=== PATIENT | male | born 1950 | race Caucasian/White ===

== ENCOUNTER 2019-07-23 15:29 | Day surgery (SDC) | payer MEDICARE, BC, SELFPAY ==
[2019-07-23] VITALS (7 sets, daily range): BP systolic 111–139; BP diastolic 75–84; PULSE 65–85; RESP 16; TEMP 36.2–37; O2SAT 96–99; BMI 24.7
--- NOTE | 2019-07-23 16:39 | ED.DCSUM_ITS ---
- ER Visit Summary Date of Service: 07/23/19 Chief Complaint: [Foreign body ingestion] History of Present Illness: The patient is a 68 M [Zentz to the emergency department with ingesting a foreign body. Patient states that he had a toothpick in his mouth that he was lying on his back when he accidentally i nhaled it and ingested it. He denies any trouble breathing. Patient states that every time he swallows he feels like it stuck in his throat. Patient denies any dyspnea. He has a mild cough for several days. Denies any fevers.] Physical Examination: [HEENT-PERRLA, EOMI. Cranial nerves II through XII grossly intact. TMs clear. Mucous membranes moist. No adenopathy. Cardiovascular-regular rate and rhythm without murmur or ectopy Lungs-clear to auscultation, chest wall stable without crepitus or subcu emphysema Abdomen-normoactive bowel sounds, soft, nontender, no rebound or rigidity, no peritoneal signs. Extremities-intact ?4, normal range of motion, normal pulses, atraumatic] Test Results: [None indicated] Emergency Department Course and Treatment: [Case was discussed with general surgeon on-call Dr. Chaitanya Colon who will take patient to endoscopy for retrieval of suspected esophageal foreign body.] Treatment Plan: [Endoscopy] Disposition: Pending evaluation by general surgeon [] Impression: [Esophageal foreign body] This note was generated with [employer] Windows dictation software. It may contain incorrect words, spelling, and punctuation that were not noted in review of the chart prior to signing ED Disposition - Plan for ED Patient: Referrals: Jason Myers MD [Primary Care Provider] -
[2019-07-23] MEDS: 0.45% Normal Saline 1,000 ML 150 ML IV (17:12)
--- NOTE | 2019-07-23 18:13 | PCM.HP.STD ---
History of Present Illness Date of Admission: 07/23/19 Chief Complaint: esophageal foreign body The patient is a 68 year old M with a recent URI, He was using a toothpick to clean his teeth, coughed and swallowed the toothpick this afternoon. He has a globus senstaion in his throat. He presented to the [facility] ER. I was contacted. No imaging was performed Past Medical History Allergies No Known Allergies Allergy (Verified 07/23/19 15:30) Home Medications: Ambulatory Orders Medication Instructions Recorded Quetiapine Fumarate 25 - 50 mg PO QHS 07/23/19 Surgical History: no surgical history Psychiatric History: Depression Smoking Status: Former smoker Review of Systems Constitutional: Denies: Chills, Fever, Weight Change HEENT: Reports: Dysphasia. Denies: Head Aches, Sinus Congestion, Sinus Drainage Cardiovascular: Denies: Chest Pain, Palpitations Respiratory: Denies: Cough, Shortness of breath at rest, Sputum production Gastrointestinal: Denies: Abdominal Pain, Nausea, Vomiting Genitourinary: Denies: Dysuria Musculoskeletal: Denies: Joint Pain, Joint Tenderness Skin: Denies: Rash, Wounds Neurological: Denies: Numbness, Tingling, Focal weakness Psychiatric: Reports: Depression. Denies: Anxiety, Homicidal Ideations, Suicidal Ideations Hematologic/ Lymphatic: Denies: Easy Bruising, Easy Bleeding VTE Information - Inpt Only VTE Present on Admission: No - Physical Exam Vitals/I&O's: Vital Signs Temp Pulse Resp BP Pulse Ox 97.1 F L 85 16 111/78 97 07/23/19 15:31 07/23/19 15:31 07/23/19 15:31 07/23/19 15:31 07/23/19 15:31 Oxygen Delivery Method Room Air Weight: 80.5 kg Body Mass Index (BMI) 24.7 General: Alert, Oriented x3, Cooperative, No apparent distress Lungs: Clear to auscultation, Normal air movement Cardiovascular: Regular rate, No murmurs Abdomen: Bowel Sounds Present, Soft, Non Tender Current Medications Sodium Chloride () 1,000 mls @ 150 mls/hr IV .[id number] [facility] Last Admin: 07/23/19 17:12 Dose: 150 mls/hr Documented by: Assessment/Plan likely esophageal foreign body - toothpick I plan to perform upper endoscopy with removal of esophageal foreign body. The patient understands the risks benefits aossible complications and alternatives and consents to the planned procedure.
--- NOTE | 2019-07-23 18:54 | OP.EGD_ITS ---
Patient Name: Cristhian Morales Procedure Date: 07/23/2019 6:14 PM Date of : 1950 Age: 68 Procedure: Upper GI endoscopy Indications: Foreign body in the esophagus Providers: Chaitanya Guajardo MD Medicines: Monitored Anesthesia Care Patient Profile: This is a 68 year old male. Refer to note in patient chart for documentation of history and physical. Complications: No immediate complications. Procedure: Pre-Anesthesia Assessment: - Prior to the procedure, a History and Physical was performed, and patient medications and allergies were reviewed. The patient is competent. The risks and benefits of the procedure and the sedation options and risks were discussed with the patient. All questions were answered and informed consent was obtained. Patient identification and proposed procedure were verified by the physician, the nurse and the anesthesiologist in the procedure room. Mental Status Examination: alert and oriented. Airway Examination: normal oropharyngeal airway and neck mobility. Respiratory Examination: clear to auscultation. CV Examination: normal. Prophylactic Antibiotics: The patient does not require prophylactic antibiotics. Prior Anticoagulants: The patient has taken no previous anticoagulant or antiplatelet agents. ASA Grade Assessment: E - Emergency. After reviewing the risks and benefits, the patient was deemed in satisfactory condition to undergo the procedure. The anesthesia plan was to use monitored anesthesia care (MAC). Immediately prior to administration of medications, the patient was re-assessed for adequacy to receive sedatives. The heart rate, respiratory rate, oxygen saturations, blood pressure, adequacy of pulmonary ventilation, and response to care were monitored throughout the procedure. The physical status of the patient was re-assessed after the procedure. After obtaining informed consent, the endoscope was passed under direct vision. Throughout the procedure, the patient's blood pressure, pulse, and oxygen saturations were monitored continuously. The gastroscope was introduced through the mouth, and advanced to the jejunum. The upper GI endoscopy was accomplished without difficulty. The patient tolerated the procedure well. Scope In: 6:26:08 PM Scope Out: 6:41:03 PM Total Procedure Duration Time 0 hours 14 minutes 55 seconds Findings: The examined jejunum was normal. The second portion of the duodenum was normal. Patchy mildly erythematous mucosa without active bleeding and with no stigmata of bleeding was found in the duodenal bulb. A medium amount of food (residue) was found in the gastric antrum. The examined esophagus was normal. The nasopharynx was normal. Impression: - Normal examined jejunum. - Normal second portion of the duodenum. - Erythematous duodenopathy. - A medium amount of food (residue) in the stomach. - Normal esophagus. - Normal nasopharynx. - No specimens collected. Recommendation: - Discharge patient to home. - Clear liquid diet for 2 days. - Continue present medications. Chaitanya Guajardo MD 07/23/2019 6:53:34 PM This report has been signed electronically. Number of Addenda: 0 Note Initiated On: 07/23/2019 6:14 PM
== END 2019-07-23 19:45 | disposition home or self-care (01) ==
LOC: ED 16:53 → EN 16:57 → AC 17:00
PROVIDERS: Emergency Provider Emergency Medicine; Family Provider Physician Assistant; PCP Physician Assistant; Referring Provider Surgery; Visit Provider Surgery
PROC: 0DJ08ZZ Inspection of Upper Intestinal Tract, Via Natural or Artificial Opening Endoscopic (ICD-10-PCS; CPT 43235; principal; 2019-07-23 17:20)
DX: T18.108A Unspecified foreign body in esophagus causing other injury, initial encounter (principal); F32.9 Major depressive disorder, single episode, unspecified; Z87.891 Personal history of nicotine dependence
CPT/HCPCS: 43235; 99282; A4216

== ENCOUNTER 2019-10-18 09:00 | Outpatient (RCR) | payer MEDICARE, BC, SELFPAY ==
[2019-07-23 15:31] VITALS: BMI 24.7
--- NOTE | 2019-09-28 09:28 | HP.OTEVAL_ITS ---
Patient's Visit Information SHANIKA LAINEZ is a 68 year old M, referred to Occupational Therapy by SAVANAH DUNHAM, with a diagnosis of left CTS. Date of Evaluation: 09/26/19 Occupational Therapist: Gilma Vinecnt, ADRIANNA/Jaswant, CHT - Subjective Subjective: This 68 year old male was seen for OT eval with dx of left CTS. Pt sx was on 09/03/2019 of left open CTR and left flexor tenosynovectomy at wrist level. pt states he is having difficulty with numbness and movement of left thumb- pt states this has been an issue since his 2nd rotator cuff repair about a year ago on 2018. Pt states since that sx he has had tingling on the back of his forearm and is unable to bend the tip of his thumb. 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 Pt reports difficulty with ADls and IADls due to lack of pinch. - ADLs Fasteners: Buttons, Snaps - ROM Wrist: right 65/70 left 75/65 CMC: right 10 left 20 MP: right 70 left 70 IP: right 70 left 0 Radial Abduction: right 45 left 50 ROM Comments: right IP at rest 0 left IP at rest +15* - Strength Warehouse Person: right 70# left 60# Lateral Pinch: right 14# left 2# (pt unable to push with thumb tip- use of IP joint ) Tripod Pinch: right 16# left 10# - Sensation Thumb: right 3.22 left 3.22 Index: right 3.22 left 3.22 Middle: right 3.22 left 3.22 Ring: right 3.22 left 3.22 Little: right 3.22 left 3.22 - Quick DASH-Disab of Arm,Shoulder& Hand Quick DASH Score: 27.2725 - Goals Goal:: Pt will demo a increase in left cigarette book maker strength by 15# to increase ind with ADLS and IADLS. Goal:: Pt will demo a increase in left thumb IP flex. by 15* to increase pts ind. with picking up small items, coins and manipulating fasteners - Rehabilitation General Assessment: pt s.p left open carpal tunnel release; left wrist flexor tenosynovectomy at wrist level on 09/03/2019. Pt demo with a decrease in ROM /functional grasp/pinch for IND. with ADLs. Pt would benefit from skilled OT services 1x week for 8 weeks to return pt to PLOF. Today pt was end on post CTR care, scar mtg, desensitization, AROM/AAROM and PROM, adding in median, radial nerve glide. Pt demo understanding and agree to POC. Rehabilitation Potential: Good - Anticipated Interventions Anticipated Interventions: A/AAROM/PROM, Strengthening, Scar Care, Triggerpoint Release, Desensitization, Sensory Retraining, Modalities, Joint Protection/Energy Conservation, Ergonomic Education, ADL Training, Education re assistive Equipment - Visit Plan Frequency: 1x/Week Duration: 2 Months TEXT: Thank you for the opportunity to evaluate your patient. For Medicare and Medicare HMO plans, please review the plan of care and approve it. It will need to be FAXED BACK to us at [phone] for Medicare purposes. Please let me know if there are questions or concerns regarding this plan of care. Physician Signature: Date:
--- NOTE | 2020-01-09 14:58 | HP.OT.NRP ---
SHANIKA LAINEZ was seen in my office for initial evaluation on 09/26/19. The following Plan of Care was established for this patient: Initial Frequency: 1x/Week Initial Duration: 2 Months Plan: cont with US/ scar mtg, PRE- strengthen green promotions specialist/ Anticipated Interventions: A/AAROM/PROM, Strengthening, Scar Care, Triggerpoint Release, Desensitization, Sensory Retraining, Modalities, Joint Protection/Energy Conservation, Ergonomic Education, ADL Training, Education re assistive Equipment This patient was last seen in our office 10/31/19. Pertinent comments regarding their Occupational therapy will appear below: Pt was seen for 4 OT visits- on his last scheduled visit pt cancelled his apt. as he was sick. Pt last seen visit on 10/31/19 he arrived stating he has noticed a change in his strength- states hes doing ex 4 x a week in gym and is feeling stronger. Had no questions with HEP. left green promotions specialist strength 70# a increase from 60# left lateral pinch 10# a increase from 2#- pt cont. to use IPJ at hyper extension Due to time lapse in pts care pt D/C at this time. At this point I will be discontinuing this patient from occupational therapy. I would be happy to see this patient again in the future if found appropriate by the physician. Thank you! Gilma Vincent, OTR/L, CHT
== END 2019-10-18 19:00 | disposition home or self-care (01) ==
LOC: OT 09:00
PROVIDERS: PCP Physician Assistant
DX: G56.02 Carpal tunnel syndrome, left upper limb (principal)
CPT/HCPCS: 97035; 97110; 97140; 97166; 97530

== ENCOUNTER 2020-10-25 01:14 | Emergency (ER) | payer MEDICARE, BC, SELFPAY ==
[2019-07-23 15:31] VITALS: BMI 24.7
[2020-10-25 01:15] VITALS: BP 129/84; PULSE 74; RESP 12; TEMP 36.4; O2SAT 100; BMI 25.9
--- NOTE | 2020-10-25 01:19 | EKG12_ITS ---
Test Reason : PALPATATIONS Blood Pressure : / mmHG Vent. Rate : 065 BPM Atrial Rate : 065 BPM P-R Int : 158 ms QRS Dur : 072 ms QT Int : 386 ms P-R-T Axes : 020 016 020 degrees QTc Int : 401 ms Sinus rhythm with occasional Premature ventricular complexes Nonspecific T wave abnormality Abnormal ECG Confirmed by ELIZABETH RHODES, DORI ([id number]), tape editor GEOVANY SILVER ([id number]) on 10/27/2020 10:10:59 AM Referred By: MARILYN Confirmed By:DORI JOHNSON MD
--- NOTE | 2020-10-25 01:20 | ED.DCSUM_ITS ---
History of Present Illness Chief Complaint: Palpitations Informant: Patient Onset: Today Context: Sudden Onset Timing: Continuous Current Severity: Moderate Maximum Severity: Moderate Narrative: The patient is a 70-year-old male with history of asthma and anxiety who presents to the emergency department with sensation of heart racing and shortness of breath. The patient states he was in his normal state of health. He states that he was watching television. He states that all of a sudden, he felt like his heart was racing and he felt flushed. He did feel short of breath. He states he used his inhaler and it seemed to help. He states that it felt like the heart racing had slowed. He denied any chest pain. He denies any fevers or chills. He states up until today, has been in his normal state of health. He has been compliant with his medications. He has no history of coronary vascular disease. Prior similar symptoms: No Recent Illness/Hospitalization: No Past Medical History - Allergies and Home Meds Allergies/Adverse Reactions: Allergies No Known Allergies Allergy (Verified 07/23/19 15:30) Primary Care Physician: Elif Mckinley PA [Primary Care Provider] - Prior records reviewed: Yes Past Medical History: - - Asthma, anxiety Surgical History: no surgical history Smoking Status: Former smoker Review of Systems General: Denies: Chills, Fever, Sweats Eyes: Denies: Visual changes - bilaterally, Diplopia ENT: Denies: Rhinorrhea, Sore throat Cardiovascular: Reports: Palpitations, Heart racing. Denies: Chest pain Respiratory: Reports: Dyspnea. Denies: Cough, Dyspnea on exertion Gastrointestinal: Denies: Abdominal pain, Nausea, Vomiting, Diarrhea, Melena, Hematochezia Genitourinary: Denies: Dysuria, Hematuria, Frequency Musculoskeletal: Denies: Back pain, Extremity Pain Skin: Denies: Rash, Wounds Neurological: Denies: Headache, Weakness, Numbness Physical Exam Vital Signs/Narrative: Vital Signs Temp Pulse Resp BP Pulse Ox 10/25/20 01:15 97.6 F L 74 12 129/84 H 100 Inital Vital Signs reviewed: Yes General: Well nourished, Well developed, No Acute Distress Head: Normocephalic, Atraumatic Eyes: Perrl, EOMI ENT: Moist mucous membranes, No rhinorrhea Neck: Supple, Nontender Cardiovascular: Regular rate, Regular rhythm, No murmurs Respiratory: No distress, CTA bilaterally, Chest nontender Abdomen: Soft, Nontender, Nondistended, Normal bowel sounds Back: Nontender, Normal Inspection Extremities: Nontender, No edema Skin: Normal color, No rash Neurological: Alert, Oriented x3, Cranial nerves II-XII grossly intact, Normal Strength, Normal Sensation Psychological: Normal affect, Normal Mood Diagnostic/Tx/Re-eval Chest X-Ray - ED: 1 View, Read by ED Physician, Normal, Heart, Lungs, Mediastinum - Rhythm Strip Rhythm Strip: Sinus Rhythm Rate: 70 Ectopy: PVC(s) - EKG Initial EKG Interpretation: Sinus Rhythm, No Acute Injury Pattern Prior: No Prior - Medical Decision Making Patient presents with sensation of heart racing and shortness of breath. On a rrival, he is not tachycardic, hypoxic, or tachypneic. EKG was obtained. Was sinus rhythm. There is no evidence of acute ischemic change. There is a few PVCs. I do have some suspicion the patient may be having symptomatic palpitations. I did undertake broad metabolic work-up. Labs are unremarkable. Chest x-ray shows no evidence of acute volume overload, cardiomegaly, or other dangerous process. The patient was observed. He continued to have a few PVCs which he states he could feel. He has had no chest pain. At this point, I do feel it is safe for outpatient therapy. The family is comfortable with this plan of care. Impression 1. Palpitations ED Disposition - Plan for ED Patient: Instructions: Premature Ventricular Contractions, ED Palpitations Referrals: Elif Mckinley PA [Primary Care Provider] -
[2020-10-25] MEDS: Aspirin 81 MG TAB.CHEW 324 MG PO (01:25)
[2020-10-25 01:27] LABS: Absolute Lymphocyte Count 2.21 X10^3/uL (0.83-4.51); Absolute Neutrophil Count 3.3 X10^3/uL (2.0-7.7); Basophil# 0.03 X10^3/uL; Basophil% 0.5 % (0-1); Eosinophil# 0.41 X10^3/uL; Eosinophils% 6.3 % (0-5); Hematocrit 45.1 % (40-54); Hemoglobin 14.9 g/dL (13.0-16.5); Lymphocyte # 2.21 X10^3/ul (4.0); Lymphocyte % 33.7 % (19-41); Mean Platelet Vol. 10.2 fl (6.2-12.0); Monocyte# 0.61 X10^3/uL; Monocyte% 9.3 % (0-10); NRBC Flagged by Analyzer 0 % (0-5); Neutrophil # 3.29 X10^3/uL (2.7-7.7); Platelet Count 225 K/mm3 (150-450); RBC Distribution Width CV 14.3 % (11.6-14.6); Red Blood Count 4.65 M/mm3 (4.6-6.2); White Blood Count 6.6 K/mm3 (4.4-11.0)
[2020-10-25] MEDS: 0.9% Normal Saline 1,000 ML 150 ML IV (01:30)
--- NOTE | 2020-10-25 01:30 | RAD_ITS ---
STUDY: X-RAY CHEST REASON FOR EXAM: Male, 70 years old patient with chest pain. TECHNIQUE: Single AP portable view of the chest. COMPARISON: Prior comparison studies are not available for review at this time. FINDINGS: Cardiac monitoring leads are present. There is hyperinflation of the lungs consistent with chronic obstructive lung disease (COPD). There is no demonstrated pleural abnormality. Normal size heart. Normal mediastinum and michael. Normal visualized pulmonary arteries. Normal visualized aortic arch and descending thoracic aorta. Normal visualized thoracic spine. Normal visualized ribs, clavicles, and shoulders. There is no demonstrated abnormality of the visualized soft tissue structures of the upper abdomen. RAD/Chest 1 View (Portable) IMPRESSION: No radiographic evidence of acute cardiopulmonary disease. Electronically Signed: Salome Melo MD at 2:36 EST , Service support ,
[2020-10-25 01:52] LABS: Anion Gap 6 (5-15); BUN 20 mg/dL (7-18); BUN/Creat Ratio 13.8 RATIO (10-20); Calcium,Total 9.1 mg/dL (8.5-10.1); Chloride 109 mmol/L (98-107); Creatinine, Serum 1.45 mg/dL (0.70-1.30); EST Glomerular Filtration Rate 51 mL/min (>60); Est Glom Filt Rate - Afr Amer 62 mL/min (>60); Estimated Creatinine Clearance 48.25 ml/min; Glucose 86 mg/dL (74-106); Magnesium 2.1 mg/dL (1.6-2.6); Potassium 4.1 mmol/L (3.5-5.1); Sodium Level 142 mmol/L (136-145); Thyroid Stim Hormone (TSH) 2.22 uIU/mL (0.358-3.74)
[2020-10-25 02:18] VITALS: BP 107/72; PULSE 71; RESP 16; O2SAT 99
== END 2020-10-25 02:19 | disposition home or self-care (01) ==
PROVIDERS: Emergency Provider Emergency Medicine; PCP Physician Assistant
DX: R00.2 Palpitations (principal); J45.909 Unspecified asthma, uncomplicated; R06.02 Shortness of breath
CPT/HCPCS: 71045; 80048; 83735; 83880; 84443; 84484; 85025; 93005; 96360; 99284; J7030; A4216

== ENCOUNTER 2024-01-28 05:54 | Emergency (ER) | payer MEDICARE, BC, SELFPAY ==
[2024-01-28] VITALS (7 sets, daily range): BP systolic 124–146; BP diastolic 65–83; PULSE 55–77; RESP 12–19; TEMP 36.3–36.7; O2SAT 96–100; BMI 24.7
--- NOTE | 2024-01-28 06:30 | RAD_ITS ---
EXAM: XR CHEST, 1 VIEW CLINICAL INDICATION: DYSPNEA DYSPNEA TECHNIQUE: Frontal view of the chest. COMPARISON: Chest x-ray 10/25/2020. FINDINGS: LUNGS AND PLEURAL SPACES: Unremarkable. No consolidation or edema. No pneumothorax. No effusion. HEART: Unremarkable. Cardiac silhouette not enlarged. MEDIASTINUM: Central airways and mediastinal contour are unremarkable. BONES/JOINTS: There is a left shoulder prosthesis. There are multilevel degenerative changes in the visualized spine. No acute fracture. SOFT TISSUES: Unremarkable. VASCULATURE: There is atherosclerotic calcification of the aortic arch. RAD/Chest 1 View (Portable) IMPRESSION: No acute findings in the chest. Electronically Signed: Dimas Campos MD at 7:52 EDT Reading Location ID and State: [facility] / [place] , Service support ,
--- NOTE | 2024-01-28 06:31 | EKG12_ITS ---
Test Reason : BACK PAIN Blood Pressure : / mmHG Vent. Rate : 067 BPM Atrial Rate : 067 BPM P-R Int : 170 ms QRS Dur : 076 ms QT Int : 394 ms P-R-T Axes : 014 005 024 degrees QTc Int : 416 ms Normal sinus rhythm Septal infarct , age undetermined Abnormal ECG Confirmed by ANGELO RHODES, MYLENE ([id number]), website/blog editor BRIAN ARORA ([id number]) on 01/30/2024 6:51:41 AM Referred By: Confirmed By:MYLENE STEPHENS MD
--- NOTE | 2024-01-28 06:31 | ED.VIS.DYS ---
HPI History of Present Illness Chief Complaint: Shortness of Breath Informant: patient Narrative Narrative: 73-year-old male presenting to the emergency room with shortness of breath and back pain. Patient states that a few hours before evaluation he woke from sleep diaphoretic and short of breath. He notes he had pain across to his upper thoracic back. He states that his symptoms have significantly gotten better now. He notes he is recently had a URI consisting of runny nose and a slight cough. Patient tells me that his same symptoms that brought him to the emergency room tonight are present the night before. However it was not as severe. Patient denies any known fevers. No vomiting or diarrhea. No nausea. Nothing seems to make his symptoms better or worse. Patient drove himself to the emergency department. When asked if he has any new medications he states yes. He shows me a container of MiraLAX which she states he has been taking intermittently for a year. [facility] Medical History Asthma Home Medications ?Medication ?Instructions ?Recorded ?Last Taken ?Type quetiapine 25 mg tablet 25 - 50 mg PO QHS PRN Sleep 07/23/19 Unknown History albuterol sulfate 90 mcg/actuation 2 puff inhalation Q4H PRN PRN Sleep 10/25/20 Unknown History aerosol inhaler fluticasone 250 mcg-salmeterol 50 1 puff inhalation BID 10/25/20 Unknown History mcg/dose blistr powdr for inhalation albuterol sulfate 90 mcg/actuation 2 puff inhalation Q4H PRN PRN 01/28/24 Unknown Rx aerosol inhaler (Ventolin HFA) Wheezing ##1 prednisone 20 mg tablet 60 mg (3 x 20 mg) PO DAILY #15 01/28/24 Unknown Rx TABLETS Allergy/AdvReac Type Severity Reaction Status Date / Time No Known Allergies Allergy Verified 01/28/24 06:05 Social History Smoking Status: Former smoker ROS ROS ED Constitutional Constitutional ED: Reports sweats; Denies chills, fever(s) or weight loss Eyes Eyes: Denies change in vision or diplopia ENT ENT ED: Reports rhinorrhea; Denies ear pain or sore throat Cardiovascular Cardiovascular: Denies chest pain, orthopnea, palpitations or racing heartbeat Respiratory/Chest Respiratory/Chest: Reports cough and dyspnea; Denies orthopnea Gastrointestinal Gastrointestinal: Denies abdominal pain, diarrhea, nausea or vomiting Genitourinary Genitourinary ED: Denies dysuria, hematuria or urinary frequency Musculoskeletal Musculoskeletal: Reports back pain; Denies arthralgias, myalgias or neck pain Integumentary Denies abscess or rash Neurologic Neurologic: Denies headache(s) or weakness Psychiatric Psychiatric: Denies anxiety, depression, suicidal ideation or suicidal thoughts Endocrine Endocrinology: Denies polydipsia, polyphagia or polyuria Allergic/Immunologic Allergic/Immunologic ED: Denies mouth swelling, tongue swelling or urticaria EXAM Physical Exam Const Vital Signs: 01/28/24 05:57 01/28/24 06:09 01/28/24 06:55 Temperature 98.1 F Temperature Source Oral Pulse Rate 68 55 L Respiratory Rate 18 16 Respiratory Effort Normal Respiratory Depth Normal Respiratory Pattern Normal Normal Blood Pressure 130/83 H Blood Pressure Mean 98 Pulse Ox 96 Oxygen Delivery Method Room Air Room Air 01/28/24 06:56 Temperature Temperature Source Pulse Rate 67 Respiratory Rate 18 Respiratory Effort Respiratory Depth Respiratory Pattern Blood Pressure 125/65 H Blood Pressure Mean 85 Pulse Ox 100 Oxygen Delivery Method Room Air Positive well nourished and well developed General Appearance ED: well developed HEENT Reports normocephalic, head/scalp atraumatic and moist mucous membranes Eyes PERRL and EOMs intact bilaterally Neck no lymphadenopathy, supple and no JVD Resp normal respiratory effort Auscultation: rhonchi left lower and wheezes scattered wheezes Cardio regular rate, regular rhythm and no murmurs GI normal to inspection, nondistended, normoactive bowel sounds and non-tender Palpation: soft Back/Spine no CVA tenderness and normal ROM Back/Spine Narrative: No tenderness to palpation around the thoracic paraspinal musculature. Extremity normal to inspection General Extremety ED: Negative for edema General Extremity: Negative for edema Neuro oriented x3 and CN's II-XII intact bilaterally Sensorium / Orientation: alert Motor Exam: strength 5/5 throughout Psych mental status grossly normal Mood & Affect: Negative for depressed or tearful Skin no rashes or lesions noted and no wounds MDM MDM MDM Narrative Medical decision making narrative: Differential diagnosis includes acute coronary syndrome, pneumonia, viral respiratory illness, malignancy, pneumothorax, less likely to be pulmonary embolism given intermittent nature of his symptoms., EKG is a normal sinus rhythm with no concerning ST segments. My independent interpretation of the chest x-ray is no acute process. White count 6.9 with a hemoglobin of 13.2 troponin is 8 creatinine 0.95 with a BUN of 19. Delta troponin is also negative. Patient received a DuoNeb. Repeat lung auscultation shows his lungs not to be clear. He has had no further diaphoresis or dyspnea. I wonder if the patient has exacerbation of his asthma due to URI. Patient is a very poor historian. 1 point he tells me that he is already on prednisone. He tells me he is not currently on it but he is just wary of medicines. To attempt to get a hold of his which I think would be helpful for us. I will write for prescription of prednisone and albuterol in case that he needs these. I did recommend being on prednisone at this point. Primary care follow-up 3 to 5 days. We cannot get a hold of his will send the prescriptions with him. History & Record Review Discussion w/independent historian: Patient Lab Data Attestation: I reviewed the patient's lab results. Labs: Laboratory Results - last 24 hr 01/28/24 01/28/24 06:05 07:36 WBC 6.9 RBC 4.36 L Hgb 13.2 Hct 40.0 MCV 91.7 MCH 30.3 MCHC 33.0 RDW Std Deviation 46.8 H RDW Coeff of Agueda 13.7 Plt Count 175 MPV 10.0 Immature Gran % (Auto) 0.100 Neut % (Auto) 57.5 Lymph % (Auto) 30.0 Dane % (Auto) 7.8 Eos % (Auto) 4.0 Baso % (Auto) 0.6 Absolute Neuts (auto) 4.0 Absolute Lymphs (auto) 2.08 Nucleated RBC % 0 Sodium 138 Potassium 4.3 Chloride 109 H Carbon Dioxide 24.0 Anion Gap 5 BUN 19 H Creatinine 0.95 Estim Creat Clear Calc 70.44 Est GFR (MDRD) Af Amer 100 Est GFR (MDRD) Non-Af 82 BUN/Creatinine Ratio 20.0 Glucose 90 Calcium 9.0 Troponin I High Sens 8 9 Radiography Diagnostic Testing: Clinical Impression(s) from Imaging Studies Chest X-Ray 01/28/24 06:30 IMPRESSION: No acute findings in the chest. Electronically Signed: Dimas Campos MD at 7:52 EDT , EKG Initial EKG: Attestation: I personally reviewed and interpreted this EKG as follows: Interpretation: Sinus Rhythm Comments: Normal sinus rhythm ventricular rate of [address] segments. No obvious preexcitation or prolonged QT syndrome Discharge Plan Triage Chief Complaint: Shortness of Breath Other Complaint: Back ED Provider: Roddy Trevino Dx/Rx/DC Orders Clinical Impression: Acute bronchospasm, Viral URI with cough Instructions: ED Bronchospasm (Adult) Prescriptions: New prednisone 20 mg tablet 60 mg PO DAILY Qty: 15 0RF albuterol sulfate [Ventolin HFA] 90 mcg/actuation HFA aerosol inhaler 2 puff inhalation Q4H PRN PRN (Reason: Wheezing) Qty: 1 0RF No Action quetiapine 25 MG tablet 25 - 50 mg PO QHS PRN (Reason: Sleep) Patient Comments: TAKE 1-2 TABS BEFORE BED FOR INSOMNIA NEEDED. fluticasone propion-salmeterol 1 PUFF inhaler 1 puff INHALATION BID albuterol sulfate 1 INHALER inhaler 2 puff INHALATION Q4H PRN PRN (Reason: Sleep) Primary Care Provider: Elif Mckinley Referrals: Elif Mckinley, PA [Primary Care Provider] - 3-5 Days if not improving Print Language: Maori Disposition Disposition: Home, Self Care
[2024-01-28 06:37] LABS: Absolute Lymphocyte Count 2.08 X10^3/uL (0.83-4.51); Basophil# 0.04 X10^3/uL; Basophil% 0.6 % (0-1); Eosinophil# 0.28 X10^3/uL; Hemoglobin 13.2 g/dL (13.0-16.5); Lymphocyte # 2.08 X10^3/ul (0.83-4.51); Mean Corpuscular Hgb 30.3 pg (27.0-32.0); Mean Corpuscular Volume 91.7 fL (80-94); Monocyte# 0.54 X10^3/uL; Monocyte% 7.8 % (0-10); NRBC Flagged by Analyzer 0 % (0-5); Neutrophil # 3.98 X10^3/uL (2.7-7.7); Neutrophil % 57.5 % (47-70); Platelet Count 175 K/mm3 (150-450); RBC Distribution Width CV 13.7 % (11.6-14.6); RBC Distribution Width SD 46.8 fl (35.1-43.9); Red Blood Count 4.36 M/mm3 (4.6-6.2); White Blood Count 6.9 K/mm3 (4.4-11.0)
[2024-01-28 06:53] LABS: Anion Gap 5 (5-15); BUN 19 mg/dL (7-18); Chloride 109 mmol/L (98-107); Creatinine, Serum 0.95 mg/dL (0.70-1.30); EST Glomerular Filtration Rate 82 mL/min (>60); Est Glom Filt Rate - Afr Amer 100 mL/min (>60); Estimated Creatinine Clearance 70.44 ml/min; Glucose 90 mg/dL (74-106); Potassium 4.3 mmol/L (3.5-5.1); Sodium Level 138 mmol/L (136-145); Troponin-I HS 8 pg/mL (3.0-78.0)
[2024-01-28] MEDS: Ipratropium/Albuterol Sulfate 3 ML AMPUL.NEB INHALATION (06:55)
[2024-01-28 08:01] LABS: Troponin-I HS 9 pg/mL (3.0-78.0)
== END 2024-01-28 08:46 | disposition home or self-care (01) ==
PROVIDERS: Emergency Provider Emergency Medicine; PCP Physician Assistant; Visit Provider Emergency Medicine
DX: J06.9 Acute upper respiratory infection, unspecified (principal); J98.01 Acute bronchospasm; Z87.891 Personal history of nicotine dependence; J45.909 Unspecified asthma, uncomplicated; Z79.51 Long term (current) use of inhaled steroids
CPT/HCPCS: 71045; 80048; 84484; 85025; 87631; 93005; 94640; 99285; A4216

== ENCOUNTER 2024-06-18 08:20 | Emergency (ER) | payer MEDICARE, BC, SELFPAY ==
[2024-06-18 08:20] VITALS: BP 134/78; BP 142/90; PULSE 63; PULSE 78; RESP 16; TEMP 36.4; TEMP 36.5; O2SAT 100; O2SAT 99; BMI 23.5
--- NOTE | 2024-06-18 08:23 | ED.RN ---
c/o rt shoulder pain with no radiation. points to upper rt chest/anterior shoulder
--- NOTE | 2024-06-18 08:43 | EX.ED.UPPERE ---
HPI History of Present Illness Chief Complaint: Upper Extremity Injury Informant: patient Narrative Narrative: Healthy 73-year-old male presenting to the emergency room with concern for venous neck distention. He reports that he went to the gym to workout and was doing some shoulder shrugs and noticed that the pain on the left side of his neck seem to be bulging. States that it would be with his heart. The patient states that he gets nervous and decided he needed to have this checked out. Denies any paresthesias. No weight loss. No change in breathing (history of asthma). He denies any recent weight loss. No recent insect bites. [facility] Medical History Asthma Home Medications ?Medication ?Instructions ?Recorded ?Last Taken ?Type quetiapine 25 mg tablet 25 - 50 mg PO QHS PRN Sleep 07/23/19 Unknown History albuterol sulfate 90 mcg/actuation 2 puff inhalation Q4H PRN PRN Sleep 10/25/20 Unknown History aerosol inhaler fluticasone 250 mcg-salmeterol 50 1 puff inhalation BID 10/25/20 Unknown History mcg/dose blistr powdr for inhalation albuterol sulfate 90 mcg/actuation 2 puff inhalation Q4H PRN PRN 01/28/24 Unknown Rx aerosol inhaler (Ventolin HFA) Wheezing ##1 prednisone 20 mg tablet 60 mg (3 x 20 mg) PO DAILY #15 01/28/24 Unknown Rx TABLETS Allergy/AdvReac Type Severity Reaction Status Date / Time No Known Allergies Allergy Verified 06/18/24 08:20 Social History Smoking Status: Former smoker ROS ROS ED Constitutional Constitutional ED: Denies chills or weight loss Eyes Eyes: Denies change in vision or diplopia ENT ENT ED: Denies ear pain, rhinorrhea or sore throat Cardiovascular Cardiovascular: Denies chest pain, orthopnea, palpitations or racing heartbeat Respiratory/Chest Respiratory/Chest: Denies cough, dyspnea or orthopnea Gastrointestinal Gastrointestinal: Denies abdominal pain, diarrhea, nausea or vomiting Genitourinary Genitourinary ED: Denies dysuria, hematuria or urinary frequency Musculoskeletal Musculoskeletal: Reports other Details: See history of present illness ; Denies arthralgias or myalgias Integumentary Denies abscess or rash Neurologic Neurologic: Denies headache(s) or weakness Psychiatric Psychiatric: Denies anxiety, depression, suicidal ideation or suicidal thoughts Endocrine Endocrinology: Denies polydipsia, polyphagia or polyuria Allergic/Immunologic Allergic/Immunologic ED: Denies mouth swelling, tongue swelling or urticaria EXAM Physical Exam Const Vital Signs: 06/18/24 08:20 Temperature 97.7 F L Temperature Source Oral Pulse Rate 63 Respiratory Rate 16 Blood Pressure 142/90 H Blood Pressure Mean 107 Pulse Ox 100 Oxygen Delivery Method Room Air Positive well nourished and well developed General Appearance ED: well developed HEENT Reports normocephalic, head/scalp atraumatic and moist mucous membranes Eyes PERRL and EOMs intact bilaterally Neck full ROM, no lymphadenopathy, supple and no JVD Neck Narrative: There is a strong carotid upstroke. I do not palpate any thrombosis of the external jugular vein which is visible bilaterally and appears symmetric. The patient does not have any swelling of the upper extremities or the neck that I can appreciate. Mild tenderness along the lateral posterior trapezius on the left no significant lymphadenopathy is felt. No masses are felt. There is no rash. Resp normal respiratory effort and clear to auscultation bilaterally Cardio regular rate, regular rhythm and no murmurs GI normal to inspection, nondistended, normoactive bowel sounds and non-tender Palpation: soft Back/Spine no CVA tenderness and normal ROM Extremity normal to inspection General Extremety ED: Negative for edema General Extremity: Negative for edema Neuro oriented x3 and CN's II-XII intact bilaterally Sensorium / Orientation: alert Motor Exam: strength 5/5 throughout Psych mental status grossly normal Mood & Affect: Negative for depressed or tearful Skin no rashes or lesions noted and no wounds MDM MDM MDM Narrative Medical decision making narrative: Differential diagnosis includes but not limited to muscular strain venous thrombosis venous compression from chest peripheral artery disease congestive heart failure EKG was obtained through nursing protocol and shows sinus rhythm with occasional PVC ventricular rate of 65 bpm. I performed a bedside ultrasound and the internal jugular vein appears free of clots and is compressible. The external jugular vein appears compressible and free of clots. Carotid artery appears without dissection or compromise. My independent interpretation of the chest x-ray is no acute process. No obvious masses to suspect venous compression. Clinically this patient appears well. I do not see a asymmetric appearance to the neck veins or to the neck anatomy at this time. I do not see evidence of thrombosis or mass. Patient was given reassurance and advised that she should symptomology change or continued concerns to follow-up with us or primary care. History & Record Review Discussion w/independent historian: Patient EKG Initial EKG: Attestation: I personally reviewed and interpreted this EKG as follows: Comments: Sinus rhythm occasional PVC ventricular rate 65 bpm Discharge Plan Triage Chief Complaint: Upper Extremity Injury ED Provider: Roddy Trevino Dx/Rx/DC Orders Clinical Impression: Jugular venous distension Prescriptions: No Action quetiapine 25 MG tablet 25 - 50 mg PO QHS PRN (Reason: Sleep) Patient Comments: TAKE 1-2 TABS BEFORE BED FOR INSOMNIA NEEDED. fluticasone propion-salmeterol 1 PUFF inhaler 1 puff INHALATION BID albuterol sulfate 1 INHALER inhaler 2 puff INHALATION Q4H PRN PRN (Reason: Sleep) prednisone 20 mg tablet 60 mg PO DAILY Qty: 15 0RF albuterol sulfate [Ventolin HFA] 90 mcg/actuation HFA aerosol inhaler 2 puff inhalation Q4H PRN PRN (Reason: Wheezing) Qty: 1 0RF Primary Care Provider: Care Physician,No Primary Referrals: Elif Mckinley PA [Non-Staff] - As Needed Print Language: Chadian Disposition Disposition: Home, Self Care
--- NOTE | 2024-06-18 09:00 | RAD_ITS ---
STUDY: X-RAY CHEST REASON FOR EXAM: Male, 73 years old. Shortness of breath TECHNIQUE: PA and lateral views of the chest. COMPARISON: 01/28/2024 FINDINGS: The lungs are clear and expanded. There is no demonstrated pleural abnormality. Normal size heart. Normal mediastinum and michael. Normal visualized pulmonary arteries. Normal visualized aortic arch and descending thoracic aorta. Normal visualized thoracic spine. Replaced left glenohumeral joint free of complication There is no demonstrated abnormality of the visualized soft tissue structures of the upper abdomen. RAD/Chest PA and Lateral IMPRESSION: No acute pulmonary process Electronically Signed: Antoine Jain MD at 9:24 EDT ,
--- NOTE | 2024-06-18 09:08 | EKG12_ITS ---
Test Reason : SHOULDER PAIN/NECK Blood Pressure : / mmHG Vent. Rate : 065 BPM Atrial Rate : 065 BPM P-R Int : 142 ms QRS Dur : 068 ms QT Int : 380 ms P-R-T Axes : 019 009 029 degrees QTc Int : 395 ms Sinus rhythm with occasional Premature ventricular complexes Septal infarct (cited on or before 28-JAN-2024) Abnormal ECG Confirmed by MYLENE STEPHENS MD ([id number]), school photograph editor BRIAN ARORA ([id number]) on 06/20/2024 9:42:59 AM Referred By: EDWARD Confirmed By:MYLENE STEPHENS MD
== END 2024-06-18 09:40 | disposition home or self-care (01) ==
PROVIDERS: Emergency Provider Emergency Medicine; Visit Provider Emergency Medicine
DX: I87.8 Other specified disorders of veins (principal); Z87.891 Personal history of nicotine dependence; J45.909 Unspecified asthma, uncomplicated; Z79.51 Long term (current) use of inhaled steroids
CPT/HCPCS: 71046; 93005; 99282

== ENCOUNTER 2025-01-16 01:09 | Emergency (ER) | payer MEDICARE, BC, SELFPAY ==
[2025-01-16 01:10] VITALS: BP 175/97; PULSE 67; RESP 16; TEMP 36.4; O2SAT 100
--- NOTE | 2025-01-16 01:25 | EDS_ITS ---
HPI History of Present Illness Chief Complaint: Laceration Informant: patient and spouse/S.O. Onset/Context/Timing Onset: Today Mechanism/Context: Blunt Injury and Fall Maximum Severity: Mild Associated Symptoms Associated Symptoms: Negative for Parasthesias, Weakness, Loss of function, Inability to ambulate, Loss of consciousness or Amnesia Narrative Narrative: 74-year-old male history of asthma. Rolled out of bed about an hour ago striking his left eyebrow and face on the floor causing laceration. No LOC. He is on no blood thinners not even aspirin. No vomiting. No headache. No neck pain. states he is at his baseline. He denies any other injuries. They are unsure of his last tetanus. Tetanus Immunization: Unknown Prior similar symptoms: No Recent Illness/Hospitalization: No PFSH PFSH Medical History Asthma Home Medications ?Medication ?Instructions ?Recorded ?Last Taken ?Type quetiapine 25 mg tablet 25 - 50 mg PO QHS PRN Sleep 07/23/19 Unknown History albuterol sulfate 90 mcg/actuation 2 puff inhalation Q 4H PRN PRN Sleep 10/25/20 Unknown History aerosol inhaler fluticasone 250 mcg-salmeterol 50 1 puff inhalation BI D 10/25/20 Unknown History mcg/dose blistr powdr for inhalation albuterol sulfate 90 mcg/actuation 2 puff inhalation Q 4H PRN PRN 01/28/24 Unknown Rx aerosol inhaler (Ventolin HFA) Wheezing ##1 prednisone 20 mg tablet 60 mg (3 x 20 mg) PO DAILY # 15 01/28/24 Unknown Rx TABLETS Allergy/AdvReac Type Severity Reaction Status Date / Time No Known Allergies Allergy Verified 01/16/25 01:12 Social History Smoking Status: Former smoker ROS ROS ED ROS Narrative Denies recent illness. Denies headache. Denies nausea or vomiting. Constitutional Constitutional ED: Denies chills or fever(s) Eyes Eyes: Denies blurry vision ENT ENT ED: Denies ear pain Cardiovascular Cardiovascular: Denies chest pain Respiratory/Chest Respiratory/Chest: Denies cough or dyspnea Gastrointestinal Gastrointestinal: Denies abdominal pain, nausea or vomiting Genitourinary Genitourinary ED: Denies dysuria or hematuria Musculoskeletal Musculoskeletal: Denies arthralgias Integumentary Denies abscess Neurologic Neurologic: Denies headache(s) Psychiatric Psychiatric: Denies anxiety Endocrine Endocrinology: Denies cold intolerance Hematologic/Lymphatic Hematologic/Lymphatic: Denies easy bleeding, easy bruising or lymphadenopathy Allergic/Immunologic Allergic/Immunologic ED: Denies mouth swelling, tongue swelling or urticaria EXAM Physical Exam Narrative Exam Narrative: Well-appearing 74-year-old male. Vital signs stable afebrile. Sitting upright in bed. at bedside. No distress. H EENT exam pupils round reactive light. Extra motions are intact. He has about a 1 to 2 inch laceration along his left eyebrow. Mild bleeding. No significant hematoma. No bony tenderness. Extraocular motions are intact. There is no other swelling or trauma to his face. Scalp is nontender without hematoma. Scant moist mucous membranes. C-spine and trachea are nontender. Back and spine are nontender. Lungs are clear. Heart regular rhythm rate about 70 no murmur. Chest wall ribs nontender. Abdomen soft nontender. Pelvic girdle intact. Moving all 4 extremities. 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 Normal dorsi plantarflexion. He is able to flex and extend his hips and knees and ankles. No deformity. Neurologically he is awake and alert. He is answering questions following commands. He knows his . He knows the president Danyelle block. He knows where he is at. GCS is 15. Const Vital Signs: 01/16/25 01:10 Temperature 97.6 F L Temperature Source Oral Pulse Rate 67 Respiratory Rate 16 Blood Pressure 175/97 H Blood Pressure Mean 123 Pulse Ox 100 Oxygen Delivery Method Room Air Positive well nourished and well developed; Negative for obese, cachectic, contractures or unkempt General Appearance ED: well developed and NAD; Negative for unkempt, cachectic or contractures Nutritional Appearance: Negative for cachectic or obese HEENT HEENT Narrative: Left eyebrow 1 to 2 inch laceration. trauma Eyes PERRL and EOMs intact bilaterally Neck full ROM General: Negative for tenderness Chest Wall inspection of chest normal and palpation of chest normal Resp normal respiratory effort and clear to auscultation bilaterally Cardio regular rhythm, S1 normal heart sound, S2 normal heart sound and no murmurs Rate: regular rate GI normal to inspection, nondistended, normoactive bowel sounds, non-tender, non- distended and no masses Auscultation: normoactive bowel sounds Palpation: soft; Negative for tender, guarding or rebound tenderness present Back/Spine normal to inspection and no thoracic nor lumbar tenderness Extremity normal to inspection and full ROM General Extremety ED: Negative for deformity, edema or tenderness General Extremity: Negative for deformity or edema Neuro oriented x3, CN's II-XII intact bilaterally, moves all extremities and no focal motor deficits Momo Coma Scale: document GCS findings Spontaneous Obeys Commands Oriented 15 Sensorium / Orientation: alert, oriented to person, oriented to place and oriented to time Motor Exam: strength 5/5 throughout Psych mental status grossly normal and thought process normal Appearance: Negative for unkempt Attitude: No agitated Mood & Affect: Negative for depressed, anxious or tearful Skin no rashes or lesions noted, No no wounds, skin turgor normal and no jaundice Skin Narrative: Left eyebrow 1 to 2 inch laceration. PROC Procedures Lacerations Left eyebrow laceration repair:: Length: 1.5 in Depth: Sub Q Shape: Linear Prep: Shjazmin-Clens Laceration repair: Irrigated, Lidocaine with epi, Local and Skin sutures Number of Sutures/Taran: 3 Suture Information: Ethilon, Simple and 4-0 Comment: Left eyebrow laceration. 1-1/2 inches. Involves the skin and subcu tissue. Locally anesthetized lidocaine with epinephrine. Cleaned with Edwin-Dennis. Washed and irrigated with saline. Wound explored. No bony deformity or tenderness. Able to open close his eye. Extract motions are intact. No entrapment. Closed using 3 simple erupted 4-0 Ethilon sutures. Proper MCJ wound closure obtained. Patient tolerated procedure well. They were instructed on wound care and head injury. Stitches out in 7 days. Tetanus updated. MDM MDM MDM Narrative Medical decision making narrative: 74-year-old male rolled out of bed about an hour ago. Striking his left forehead. Causing a laceration. Tetanus will be updated. Suture repaired. He is on no blood thinners and not even aspirin. No LOC. He is neurologically intact. I discussed CAT scan with both he and his and they deferred at this time. Clinically I do not feel its necessary. Repeat exam at 2:30 in the morning after is done suturing his left eyebrow laceration patient doing well. He was offered but did not want anything for discomfort. His neurologic exam is unchanged. Again discussed with both he and his they deferred any CAT scan at this time. They know when to return and were instructed on head injury instructions. History & Record Review Discussion w/independent historian: Patient and Family Discharge Plan Triage Chief Complaint: Laceration ED Provider: Jose Juan Christine Dx/Rx/DC Orders Clinical Impression: Fall, Eyebrow laceration, Closed head injury Instructions: ED Head Injury (Adult), ED Laceration, All Closures Prescriptions: No Action quetiapine 25 MG tablet 25 - 50 mg PO QHS PRN (Reason: Sleep) Patient Comments: TAKE 1-2 TABS BEFORE BED FOR INSOMNIA NEEDED. fluticasone propion-salmeterol 1 PUFF inhaler 1 puff INHALATION BID albuterol sulfate 1 INHALER inhaler 2 puff INHALATION Q4H PRN PRN (Reason: Sleep) prednisone 20 mg tablet 60 mg PO DAILY Qty: 15 0RF albuterol sulfate [Ventolin HFA] 90 mcg/actuation HFA aerosol inhaler 2 puff inhalation Q4H PRN PRN (Reason: Wheezing) Qty: 1 0RF Primary Care Provider: Leticia Harding Referrals: Leticia Harding, CYLINDER TESTER [Primary Care Provider] - 7 Days for suture removal Care Physician,No Primary [Non-Staff] - Activity Restrictions/Additional Instructions: Ice to the eyebrow to decrease pain and swelling and decrease bruising. Tylenol for any pain. Return if severe headache, vomiting or not acting himself. He would need a CAT scan then. Follow-up with your primary care provider to get the stitches out in 7 days. Clean the wound daily with just soap and water. Apply antibiotic ointment. If you see any signs of infection pus, redness, fever return. Print Language: Indian Disposition Disposition: Home, Self Care
[2025-01-16] MEDS: Lidocaine 1% /Epi 1:100 (20ml) 20 ML Vial 10 ML INFILT (02:38)
[2025-01-16] MEDS: Diphth,Pertuss(Acell),Tet Vac 0.5 ML Vial IM (02:39)
[2025-01-16 02:43] VITALS: BP 139/81; PULSE 65; RESP 18; TEMP 36.6; O2SAT 98
== END 2025-01-16 02:59 | disposition home or self-care (01) ==
PROVIDERS: Emergency Provider Emergency Medicine; PCP Clinical Nurse Specialist Adult Health; Visit Provider Emergency Medicine
DX: S01.112A Laceration without foreign body of left eyelid and periocular area, initial encounter (principal); Z87.891 Personal history of nicotine dependence; Z23 Encounter for immunization; J45.909 Unspecified asthma, uncomplicated; W06.XXXA Fall from bed, initial encounter
CPT/HCPCS: 12011; 90471; 90715; 99283

== ENCOUNTER 2025-02-01 18:01 | Observation (INO) | payer MEDICARE, BC, SELFPAY ==
[2025-02-01 18:06] VITALS: BP 157/96; PULSE 65; RESP 16; TEMP 36.6; O2SAT 98; BMI 23.4
--- NOTE | 2025-02-01 18:21 | EDS_ITS ---
HPI History of Present Illness Chief Complaint: Alt LOC Informant: spouse/S.O. Narrative Narrative: Sent from [facility] facility [place] increasing altered mental status today. Was discharged from [facility] yesterday to [place] secondary to having intracranial hemorrhage. Per spouse had a fall couple weeks ago laceration. He is acting normal with his dementia. They follow-up with PCP for suture removal few days later had outpatient CT with findings of intracranial hemorrhage they were seen initially at [place] ED transferred to [facility] 4 to 5 days per . No intervention performed. He is not on any blood thinners. He had some confusion when he was discharged. He was made DNR CCA yesterday. States since afternoon increasing confusion not talking currently. No falls that are known. Denies cough denies vomiting. Yesterday had diarrhea per spouse. [facility] Medical History (Updated 02/01/25 @ 21:[address] Mimi Maldonado MD) Dementia Former tobacco use Asthma Home Medications ?Medication ?Instructions ?Recorded ?Last Taken ?Type albuterol sulfate 90 mcg/actuation 2 puff inhalation Q 4H PRN PRN 01/28/24 Unknown Rx aerosol inhaler (Ventolin HFA) Wheezing ##1 acetaminophen 325 mg capsule 975 mg PO BID fever or pa in 02/01/25 Unknown History acetaminophen 325 mg capsule 975 mg PO QHS 02/01/25 Un known History albuterol sulfate 2.5 mg/3 mL 2.5 mg inhalation Q4H AR N 02/01/25 Unknown History (0.083 %) solution for nebulization shortness of breat h or wheezing atorvastatin 40 mg tablet 40 mg PO DAILY 02/01/25 Unkn own History budesonide 0.5 mg/2 mL suspension 0.5 mg inhalation BI D 02/01/25 Unknown History for nebulization buspirone 15 mg tablet 15 mg PO 0800,1300 02/01/25 Unknown History donepezil 5 mg tablet 5 mg PO DAILY 02/01/25 Unkno wn History heparin (porcine) 5,000 unit/mL (1 5,000 unit subcut Q HS 02/01/25 Unknown History mL) injection cartridge levetiracetam 500 mg tablet 500 mg PO BID 02/01/25 Unk nown History (Keppra) olanzapine 5 mg tablet 5 mg PO QHS 02/01/25 Unknown History sennosides 8.6 mg-docusate sodium 1 tab-cap PO DAILY 0 02/01/25 Unknown History 50 mg capsule (Senna Plus) tamsulosin 0.4 mg capsule 0.4 mg PO QHS 02/01/25 Unkno wn History Allergy/AdvReac Type Severity Reaction Status Date / Time No Known Allergies Allergy Verified 01/16/25 01:12 Social History Smoking Status: Former smoker ROS ROS ED Review of Systems ROS Unobtainable: due to mental status EXAM Physical Exam Const Vital Signs: 02/01/25 18:06 02/01/25 19:01 02/01/25 20:00 Temperature 97.9 F Temperature Source Temporal Pulse Rate 65 77 74 Respiratory Rate 16 19 H 17 Blood Pressure 157/96 H 143/84 H 155/91 H Blood Pressure Mean 116 103 112 Pulse Ox 98 98 Oxygen Delivery Method Room Air Room Air Positive well nourished Constitutional Narrative: Nontoxic sitting in the bed, however not able to follow commands or communicate. Moving all 4 extremities. HEENT normocephalic and atraumatic Eyes General Eye ED: Yes normal appearance of both eyes Neck supple Chest Wall inspection of chest normal and palpation of chest normal Resp normal respiratory effort and normal air movement Cardio regular rate and regular rhythm GI soft to palpation Extremity normal to inspection and full ROM Neuro Neuro Narrative: Patient unable to tell me his name or place. Skin no rashes or lesions noted and no wounds MDM MDM MDM Narrative Medical decision making narrative: Interventions / MDM: Differential diagnosis: Subdural hematoma, altered mental status, history of dementia Diagnosis considered but do not suspect: N/A My EKG interpretation: N/A Imaging independently reviewed and interpreted by myself: CT brain: Hypodensity right subdural hematoma. No hyperdensity noted. CT cervical spine with degenerative changes. 1 view chest x-ray no acute process. External documents reviewed: N/A Test considered but not ordered:N/A ED course: Patient recent intracranial hemorrhage unclear exact area he had injury previous on the left side per spouse. He was made DNR CCA yesterday. However discussed with spouse if any worsening symptoms specially with hemorrhage if she would want intervention save his life she states she would. Workup initiated with CT head and neck. Discussed will not have any comparison imaging as this was performed outside hospital. Will check chest x-ray labs and cath for urine to rule out infectious causes and metabolic causes for altered mental status. 2004: Patient's workup negative for infectious or metabolic issues. His CT b rain subtle hypodensity front total cortex right side artifact versus recent subdural hematoma. History of intra hemorrhage likely subdural hematomas residual. I discussed with spouse, with his dementia new facility could be sundowning. She agrees possibility. She states if she had help at home, patient would like to be at home. I discussed hospice care with spouse who agrees with this if she can have help at home to take the patient home. States he would get better. He was ambulating with a walker prior to transfer down to [facility] facility. Discussed with nursing will work on hospice evaluation. 2049: Nursing discussed with hospice facility social work also involved. They were unable to evaluate the patient tonight. Nursing also discussed with hospice for possible inpatient unit, reports he is not imminent. Spouse does not want to take the patient back to [place] as he seemed to worsen there. Discussed hospitalization overnight here hospice is available to see him as an inpatient. Plan of care per hospice after evaluation. Patient will be made DNR comfort care only, will discuss with hospitalist for admission. Discussed with Dr. Maldonado for admission. Re-evaluation: stable Disposition discussed with patient/family/significant other: Spouse Case discussed with consulting clinician: Hospitalist This note was generated with [employer] dictation software. It may contain incorrect words, spelling, and punctuation that were not noted in checking the note before signing. Lab Data Attestation: I reviewed the patient's lab results. Labs: Laboratory Results - last 24 hr 02/01/25 02/01/25 18:15 18:34 WBC 8.5 RBC 4.61 Hgb 14.2 Hct 40.6 MCV 88.1 MCH 30.8 MCHC 35.0 RDW Std Deviation 40.6 RDW Coeff of Agueda 12.6 Plt Count 292 MPV 9.3 Immature Gran % (Auto) 0.500 Neut % (Auto) 74.8 H Lymph % (Auto) 16.9 L [place] % (Auto) 6.6 Eos % (Auto) 0.8 Baso % (Auto) 0.4 Absolute Neuts (auto) 6.4 Absolute Lymphs (auto) 1.44 Nucleated RBC % 0 PT 13.6 INR 1.0 APTT 30.5 Sodium 133 Potassium 4.0 Chloride 98 Carbon Dioxide 21.1 Anion Gap 14 BUN 17 Creatinine 0.85 Estim Creat Clear Calc 77.53 Est GFR (MDRD) Non-Af 91 BUN/Creatinine Ratio 20.6 H Glucose 115 H Calcium 9.5 Urine Color Yellow Urine Clarity Clear Urine pH 5.0 Ur Specific [place] 1.025 Urine Protein 15 H Urine Glucose (UA) Normal Urine Ketones Negative Urine Occult Blood 10 H Urine Nitrite Negative Urine Bilirubin Negative Urine Urobilinogen Normal Ur Leukocyte Esterase Negative Urine RBC 0 SEEN Urine WBC 0-5 SEEN Ur Squamous Epith Cells 0 SEEN Urine Bacteria 0 SEEN Hyaline Casts 0-5 SEEN Urine Mucus 0 SEEN Radiography Diagnostic Testing: Clinical Impression(s) from Imaging Studies Brain CT 02/01/25 18:45 IMPRESSION: 1. Subtle hyperdensity along the right frontal convexity could be artifact from the skull. Subtle subdural hematoma can not be excluded. Further evaluation MRI is recommended. 2. Generalized brain atrophy. 3. Small vessel ischemic/degenerative changes. 4. No acute intracranial hemorrhage, midline shift or mass effect. If symptoms persist, further evaluation with MRI is recommended. Reading Location: [id number] Cervical Spine CT 02/01/25 18:45 IMPRESSION: No acute osseous abnormality. Reading Location: [facility] Chest X-Ray 02/01/25 18:55 IMPRESSION: No acute cardiopulmonary abnormality. Reading Location: [id number] Discharge Plan Disposition Disposition: Acute Care Hospital [facility] Discharge Date/Time: 02/01/25 22:25
--- NOTE | 2025-02-01 18:45 | CT_ITS ---
EXAM: CT Head Without Intravenous Contrast CLINICAL INDICATION: ALTERED MS TECHNIQUE: Axial computed tomography images of the head/brain without intravenous contrast. This CT exam was performed using one or more of the following dose reduction techniques: automated exposure control, adjustment of the mA and/or kV according to patient size, and/or use of iterative reconstruction technique. COMPARISON: No relevant prior studies available. FINDINGS: BRAIN AND EXTRA-AXIAL SPACES: Subtle hyperdensity along the right frontal convexity could be artifact from the skull. Subtle subdural hematoma can not be excluded. Further evaluation MRI is recommended. The cerebral and cerebellar sulci are prominent consistent with brain atrophy. Areas of decreased attenuation in the deep cerebral white matter are consistent with small vessel ischemic/degenerative changes. No acute intracranial hemorrhage, midline shift or mass effect. If symptoms persist, further evaluation with MRI is recommended. BONES/JOINTS: Unremarkable. No acute fracture. SOFT TISSUES: Unremarkable. SINUSES: Unremarkable as visualized. No acute sinusitis. MASTOID AIR CELLS: Unremarkable as visualized. No mastoid effusion. CT/Brain/Head without Contrast IMPRESSION: 1. Subtle hyperdensity along the right frontal convexity could be artifact fro m the skull. Subtle subdural hematoma can not be excluded. Further evaluation MRI is recommended. 2. Generalized brain atrophy. 3. Small vessel ischemic/degenerative changes. 4. No acute intracranial hemorrhage, midline shift or mass effect. If symptoms persist, further evaluation with MRI is recommended. Reading Location: [id number]
--- NOTE | 2025-02-01 18:45 | CT_ITS ---
PROCEDURE: SPINE CERVICAL WITHOUT CONTRAS 02/01/2025 REASON FOR EXAM: ALTERED, RECENT FALL TECHNIQUE: Cervical spine CT without contrast. Coronal and Sagittal reconstruction series were provided. One or more dose reduction techniques were used (e.g., Automated exposure control, adjustment of the mA and/or kV according to patient size, use of iterative reconstruction technique COMPARISON: None FINDINGS: Vertebral body heights are within normal limits. Negative for acute fracture or traumatic subluxation. Moderate/advanced multilevel degenerative changes. Bilateral carotid artery calcifications. No discrete paraspinal mass. Lung apices are clear. CT/Spine Cervical without Contras IMPRESSION: No acute osseous abnormality. Reading Location: [facility]
[2025-02-01 18:46] LABS: Bacteria 0 SEEN /hpf (None Seen); Mucous, Urine 0 SEEN /hpf (<or=2+); Red Blood Cells-Urine 0 SEEN /hpf (0-5); Squamous Epithelial Cells - UA 0 SEEN /hpf (0-5)
[2025-02-01 18:54] LABS: Absolute Lymphocyte Count 1.44 X10^3/uL (0.83-4.51); Absolute Neutrophil Count 6.4 X10^3/uL (2.0-7.7); Basophil# 0.03 X10^3/uL; Basophil% 0.4 % (0-1); Eosinophil# 0.07 X10^3/uL; Eosinophils% 0.8 % (0-5); Hematocrit 40.6 % (40-54); Hemoglobin 14.2 g/dL (13.0-16.5); Lymphocyte # 1.44 X10^3/ul (0.83-4.51); Lymphocyte % 16.9 % (19-41); Mean Corpuscular Hgb 30.8 pg (27.0-32.0); Mean Corpuscular Volume 88.1 fL (80-94); Mean Platelet Vol. 9.3 fl (6.2-12.0); Monocyte# 0.56 X10^3/uL; Monocyte% 6.6 % (0-10); NRBC Flagged by Analyzer 0 % (0-5); Neutrophil % 74.8 % (47-70); Platelet Count 292 K/mm3 (150-450); RBC Distribution Width CV 12.6 % (11.6-14.6); RBC Distribution Width SD 40.6 fl (35.1-43.9); Red Blood Count 4.61 M/mm3 (4.6-6.2); White Blood Count 8.5 K/mm3 (4.4-11.0)
--- NOTE | 2025-02-01 18:55 | RAD_ITS ---
PROCEDURE: CHEST 1 VIEW (PORTABLE) 02/01/2025 REASON FOR EXAM: ALTERED MS TECHNIQUE: Frontal view of the chest. COMPARISON: Chest radiographs dated 06/18/2024 FINDINGS: Hardware: Left shoulder arthroplasty Heart: The heart size is normal. Aortic atherosclerosis. Lungs: The lungs are clear. No significant pleural effusion. Skin folds project over both lungs. Bones: Degenerative changes are identified within the thoracic spine and right shoulder. RAD/Chest 1 View (Portable) IMPRESSION: No acute cardiopulmonary abnormality. Reading Location: [facility]
[2025-02-01 19:01] VITALS: BP 143/84; PULSE 77; RESP 19; O2SAT 98
[2025-02-01 19:12] LABS: Prothrombin Time (Protime)PT. 13.6 SECONDS (11.7-14.9)
[2025-02-01 19:13] LABS: Partial Thromboplast Time 30.5 Seconds (24.1-36.2)
[2025-02-01 19:20] LABS: Anion Gap 14 (5-15); BUN 17 mg/dL (4-19); BUN/Creat Ratio 20.6 RATIO (10-20); Calcium,Total 9.5 mg/dL (7.6-11.0); Carbon Dioxide 21.1 mmol/L (21.0-32.0); Chloride 98 mmol/L (98-108); Creatinine, Serum 0.85 mg/dL (0.70-1.20); EST Glomerular Filtration Rate 91 (>60); Estimated Creatinine Clearance 77.53 ml/min (50-250); Glucose 115 mg/dL (70-99); Sodium Level 133 mmol/L (133-145)
[2025-02-01 19:22] LABS: Color, Urine Yellow (Yellow); Glucose, Dipstick Normal (Normal); Ketone-Dipstick Negative (Negative); Leukocyte Esterase-Dipstick Negative /ul (Negative); Nitrite-Dipstick Negative (Negative); Occult Blood-Urine 10 /ul (Negative); Protein-Dipstick 15 mg/dl (Negative); Specific Gravity, Urine 1.025 (1.002-1.030); Urine Bilirubin Dipstick Negative (Negative); Urine Clarity Clear (Clear); Urine Urobilinogen Normal (Normal)
[2025-02-01 19:44] LABS: Hyaline Cast 0-5 SEEN /lpf (0-5); White Blood Cells 0-5 SEEN /hpf (0-5)
[2025-02-01 20:00] VITALS: BP 155/91; PULSE 74; RESP 17
--- NOTE | 2025-02-01 20:53 | CM.ED ---
Social work Reason for referral: hospice consult Referral source: Sana RN In conversation with Dr. Pisano, Marilynn reportedly stated desire to take patient home with hospice care to help due to Marilynn's desire to not take patient back to [place]. Sana RN requested this call for hospice consult. SW called [facility] referral line (ph: ) and spoke with Fartun. Fartun got patient information from this and stated inability for a hospice nurse to come to [facility] ED this evening unless patient's situation was dire. In conversation with Dr. Pisano, patient's would only feel comfortable taking patient home with hospice support and patient's was unwilling to send patient back to [place] due to belief that patient got worse there. Dr. Pisano to ask hospitalist for admission overnight. called Fartun back (ph: ) and reported patient's admission to [facility] acute floor. Dr. Pisano and Sana RN updated. Plan: hospice to follow up with patient and patient's tomorrow, 02/02/25; handoff to acute team via email. Nadya Montoya, CLIENT SERVICES COORDINATOR, MANAGER MAC
--- NOTE | 2025-02-01 21:13 | HP.PCM.HOS_ITS ---
HPI - General General Date of Admission: 02/01/25 Date of Service: 02/01/25 Chief Complaint: AMS. HPI Narrative The patient is a 74 y/o M w/ PMHx: BPH with obstructive pathology, Dementia unclear type with unclear behavioral disturbance history, Mood disorder, Asthma, Former tobacco use who presents to the [facility] ED on 02/01/2025 from halfway facility with onset of altered mental status starting today recently discharged from [facility] the day prior following admission and evaluation for intracranial hemorrhage and per spouse noted history of fall a couple weeks previous to this not on any anticoagulation or antiplatelet therapy with noted confusion upon his recent discharge however since the afternoon he has had worsening confusion and lack of speech with no fall reoccurrence prompting family to bring him in for reevaluation. Workup in the ED included T97.9, heart rate 65, BP 157/96, respiratory rate 16, 98% on room air with most recent repeat vitals heart rate 74, BP 155/91, respiratory rate 17, CBC with WBC 8.5, Hgb 14.2, platelet 292 without marked shift, unremarkable coags, unremarkable BMP aside glucose 115, urinalysis with elevated specific gravity 1.025 but no obvious evidence of UTI, CT brain with subtle hyperdensity along the right frontal convexity possibly artifact from the school, subtle subdural hematoma cannot be excluded, generalized brain atrophy, small vessel ischemic degenerative changes with otherwise no acute intracranial hemorrhage, midline shift or mass effect, CT of the cervical spine with no acute finding, chest x-ray with no acute cardiopulmonary findings. Following this evaluation patient status was discussed per ED physician with family and it was their desire to set up hospice at home however the services unable to evaluate them this evening but plan for 02/02/2025 evaluation and transition to hospice at home once everything is set up. In the ED patient was made DNR-CC per ED physician. [facility] Medical History (Updated 02/02/25 @ 01:[address] Mimi Maldonado MD) ICH (intracerebral hemorrhage) BPH (benign prostatic hyperplasia) Mood disorder Dementia Former tobacco use Asthma Home Medications ?Medication ?Instructions ?Recorded ?Last Taken ?Type albuterol sulfate 90 mcg/actuation 2 puff inhalation Q 4H PRN PRN 01/28/24 Unknown Rx aerosol inhaler (Ventolin HFA) Wheezing ##1 acetaminophen 325 mg capsule 975 mg PO BID fever or pa in 02/01/25 Unknown History acetaminophen 325 mg capsule 975 mg PO QHS 02/01/25 Un known History albuterol sulfate 2.5 mg/3 mL 2.5 mg inhalation Q4H KS N 02/01/25 Unknown History (0.083 %) solution for nebulization shortness of breat h or wheezing atorvastatin 40 mg tablet 40 mg PO DAILY 02/01/25 Unkn own History budesonide 0.5 mg/2 mL suspension 0.5 mg inhalation BI D 02/01/25 Unknown History for nebulization buspirone 15 mg tablet 15 mg PO 0800,1300 02/01/25 Unknown History donepezil 5 mg tablet 5 mg PO DAILY 02/01/25 Unkno wn History heparin (porcine) 5,000 unit/mL (1 5,000 unit subcut Q HS 02/01/25 Unknown History mL) injection cartridge levetiracetam 500 mg tablet 500 mg PO BID 02/01/25 Unk nown History (Keppra) olanzapine 5 mg tablet 5 mg PO QHS 02/01/25 Unknown History sennosides 8.6 mg-docusate sodium 1 tab-cap PO DAILY 0 02/01/25 Unknown History 50 mg capsule (Senna Plus) tamsulosin 0.4 mg capsule 0.4 mg PO QHS 02/01/25 Unkno wn History Allergy/AdvReac Type Severity Reaction Status Date / Time No Known Allergies Allergy Verified 01/16/25 01:12 Family History (Updated 02/02/25 @ 01:[address] Mimi Maldonado MD) Mother Lupus Father Heart disease Hypertension Heart failure Surgical History (Updated 02/02/25 @ 01:[address] Mimi Maldonado MD) S/P rotator cuff repair Social History (Updated 02/02/25 @ 01:[address] Mimi Maldonado MD) household members: spouse Smoking Status: Former smoker how long ago did patient quit smoking: Quite remotely. alcohol intake: never substance use type: does not use ROS Review of Systems ROS Unobtainable: due to encephalopathy Vital Signs Vital Signs Vital Signs: 02/01/25 18:06 02/01/25 19:01 02/01/25 20:00 Temperature 97.9 F Temperature Source Temporal Pulse Rate 65 77 74 Respiratory Rate 16 19 H 17 Blood Pressure 157/96 H 143/84 H 155/91 H Blood Pressure Mean 116 103 112 Pulse Ox 98 98 Oxygen Delivery Method Room Air Room Air Weight Weight: 163 lb 9.328 oz Body Mass Index (BMI) 23.4 Physical Exam Narrative Physical Examination: General: Awake, not alert, will follow visually and does move the bed but not talking/noninteractive with mouth open and he would not shut it even when encouraged or you touch his his lower chin, unable to answer any orientation questions, not following commands, seated upright in the ED bed, no overt distress. Skin: Normal color, normal turgor, no icterus, no cyanosis except occasional stage ecchymoses, abrasions, venous stasis skin changes. HEENT: AT/NC, EOMI, PERRLA, dry MM, keeping mouth constantly open, no carotid bruits or JVD noted. Lungs: Mildly diminished, greater bases, appropriate effort, no rales, ronchi or wheezing. Heart: Regular rate and rhythm; no gallop, rub audible. Abdomen: Soft, NTTP, ND, hyperactive BS, no H appreciated SM. Extremities: No cyanosis, no clubbing, pedal to mid mauro chronic edema per discussion with spouse with venous stasis skin changes. Neurological: Awake, not alert, will follow visually and does move the bed but not talking/noninteractive with mouth open and he would not shut it even when encouraged or you touch his his lower chin, unable to answer any orientation questions, not following commands, seated upright in the ED bed, no overt distress, cognitive function not consistent with his baseline following recent discharge, cranial nerves grossly appear normal but difficult evaluation is not following commands, does spontaneously move his extremities however he does keep both hands in a fist, spontaneously moving extremities, strength difficult to assess as patient's not performing any exam request. Psychiatric: Affect appears flat, no acute evidence of depressive or anxiety feelings. Results Lab / Micro Data 02/01/25 18:15 02/01/25 18:15 Labs: Laboratory Results - last 24 hr 02/01/25 18:15: WBC 8.5, RBC 4.61, Hgb 14.2, Hct 40.6, MCV 88.1, MCH 30.8, MCHC 35.0, RDW Std Deviation 40.6, RDW Coeff of Agueda 12.6, Plt Count 292, MPV 9.3, Immature Gran % (Auto) 0.500, Neut % (Auto) 74.8 H, Lymph % (Auto) 16.9 L, [place] % (Auto) 6.6, Eos % (Auto) 0.8, Baso % (Auto) 0.4, Absolute Neuts (auto) 6.4, Absolute Lymphs (auto) 1.44, Nucleated RBC % 0, PT 13.6, INR 1.0, APTT 30.5, Sodium 133, Potassium 4.0, Chloride 98, Carbon Dioxide 21.1, Anion Gap 14, BUN 17, Creatinine 0.85, Estim Creat Clear Calc 77.53, Est GFR (MDRD) Non-Af 91, B UN/Creatinine Ratio 20.6 H, Glucose 115 H, Calcium 9.5 02/01/25 18:34: Urine Color Yellow, Urine Clarity Clear, Urine pH 5.0, Ur Specific [place] 1.025, Urine Protein 15 H, Urine Glucose (UA) Normal, Urine Ketones Negative, Urine Occult Blood 10 H, Urine Nitrite Negative, Urine Bilirubin Negative, Urine Urobilinogen Normal, Ur Leukocyte Esterase Negative, Urine RBC 0 SEEN, Urine WBC 0-5 SEEN, Ur Squamous Epith Cells 0 SEEN, Urine Bacteria 0 SEEN, Hyaline Casts 0-5 SEEN, Urine Mucus 0 SEEN Imaging Radiology Impression Brain CT 02/01/25 18:45 IMPRESSION: 1. Subtle hyperdensity along the right frontal convexity could be artifact from the skull. Subtle subdural hematoma can not be excluded. Further evaluation MRI is recommended. 2. Generalized brain atrophy. 3. Small vessel ischemic/degenerative changes. 4. No acute intracranial hemorrhage, midline shift or mass effect. If symptoms persist, further evaluation with MRI is recommended. Reading Location: [id number] Cervical Spine CT 02/01/25 18:45 IMPRESSION: No acute osseous abnormality. Reading Location: [facility] Assessment & Plan Assessment/Plan (1) Encephalopathy acute: PLAN: Plan The patient is a 74 y/o M w/ PMHx: BPH with obstructive pathology, Dementia unclear type with unclear behavioral disturbance history, Mood disorder, Asthma, Former tobacco use who presents to the [facility] ED on 02/01/2025 from halfway facility with onset of altered mental status starting today recently discharged from [facility] the day prior following admission and evaluation for intracranial hemorrhage and per spouse noted history of fall a couple weeks previous to this not on any anticoagulation or antiplatelet therapy with noted confusion upon his recent discharge however since the afternoon he has had worsening confusion and lack of speech with no fall reoccurrence prompting family to bring him in for reevaluation. #1. Worsening mental status, confusion, encephalopathy complicated by recent mechanical fall with intracranial hemorrhage/subdural hematoma, unclear exact etiology complicated by #2: In the ED had attempted to transition patient to hospice program however he was not a candidate for the inpatient unit thus plan had been for hospice transition to home however there was no ability to set it up there for this time will admit. Patient code status transitioned per family/POA to DNR-CC in the ED with form signed. Will admit to [facility], institute hospice comfort measures w/ VS limited q 12, ellington placement if necessary otherwise may straight cath, mouth care, NPO given severity of encephalopathy, oxygen as needed, PRN haldol, KS tylenol PRN. Will judiciously hydrate with consultation to hospice for plan to transition to home once able to set up. Patient is on Keppra likely from recent intracranial bleed with seizure potential but at this point will defer transitioning to IV option given plan is to return to home and this would be deferred given his inability to take anything orally at this point. #2. Dementia unclear type with unclear behavioral disturbance history: Complicates presentation, unclear if this is in large part responsible for his current presentation, given unsafe oral intake holding donepezil regimen, planned hospice transition at home as noted. #3. Mood disorder: Holding patient's olanzapine, buspirone regimen given unsafe oral intake at this point, if patient remains unchanged with transition to hospice at home may need to consider alternate regimen. #5. Hyperlipidemia: Holding statin therapy given unsafe for oral intake potential as noted. #6. BPH with obstructive pathology: Holding patient Flomax regimen, monitor for retention. #7. DVT prophylaxis: Given hospice plan transition will defer. Charges/Coding Visit Charges Inpatient E&M: 42968 Init Hosp L3
--- OUTSIDE RECORDS SUMMARY | 2025-02-01 21:30 | XMS RPT_ITS | CCD ---
Author Organization [facility] Care Team Providers Care Software Client Architect Name Role Phone Elif Mckinley PA-C Primary Care Provider [phone] SHAWANDA HALE Referring Unavailable Elif MCKINLEY Primary Care Unavailable Elif Mckinley PA-C Primary Care Provider [phone] Erum Mckinley PA-C Primary Care Provider Unavailable Haagen [employer].PROMOTIONS REPRESENTATIVE, Marah Unavailable Suppan [employer].PROMOTIONS REPRESENTATIVE, Leticia A Unavailable Suppan [employer].PROMOTIONS REPRESENTATIVE, Leticia A Primary Care Provi maribell Erum Mckinley PA-C Primary Care Provider Unavailable Suppan [employer].PROMOTIONS REPRESENTATIVE, Leticia A Unavailable Suppan [employer].PROMOTIONS REPRESENTATIVE, Leticia A Primary Care Provi maribell Suppan [employer].PROMOTIONS REPRESENTATIVE, Leticia A Unavailable [phone] Suppan [employer].PROMOTIONS REPRESENTATIVE, Leticia A Primary Care Provi maribell Dr. Jose Juan Christine MD Emergency Provider Suppan KITCHEN MECHANIC, Leticia Primary Care Provider [phone] Care Physician, No Primary Primary Care Unava ilable Roddy Trevino Attending Unavailable Elif Schroeder Primary Care Unavailable Roddy Trevino Attending Unavailable Suppan, Leticia Primary Care Unavailable Jose Juan Christine Attending Unavailable SUPPAN, LETICIA A Attending Unavailable SUPPAN, LETICIA A Primary Care Unavailable LUIS EDUARDO RICO Attending Unavailable SUPPAN, LETICIA A Primary Care Unavailable VIRI BEASLEY Referring Unavailable ERUM MCKINLEY Primary Care Unavailable SUPPAN, LETICIA A Primary Care Unavailable SUPPAN, LETICIA A Attending Unavailable VIRI BEASLEY Referring Unavailable VIRI BEASLEY Attending Unavailable SUPPAN, LETICIA A Primary Care Unavailable RAJGURU, ALEXUS J Referring Unavailable RAJGURU, ALEXUS J Attending Unavailable ERUM MCKINLEY Primary Care Unavailable ERUM MCKINLEY Primary Care Unavailable ARTURO LEMA Referring Unavailable LORI CHAUHAN Attending Unavailable ERUM MCKINLEY Primary Care Unavailable TIEN, LORI Moise Referring Unavailable MCKINLEYERUM Primary Care Unavailable SUPPAN, LETICIA A Primary Care Unavailable SUPPAN, LETICIA A Referring Unavailable TIEN, LORI Moise Referring Unavailable VELASQUEZ RICHARDSON Attending Unavailable ERUM MCKINLEY Primary Care Unavailable TIEN, LORI Moise Referring Unavailable MCKINLEYERUM Primary Care Unavailable SUPPAN, LETICIA A Primary Care Unavailable SUPPAN, LETICIA A Attending Unavailable ERUM MCKINLEY Primary Care Unavailable ARTURO LEMA Referring Unavailable MCKINLEYERUM WINTER Primary Care Unavailable SELF Referring Unavailable SUPPAN, LETICIA A Attending Unavailable ERUM MCKINLEY Primary Care Unavailable KRUNAL BARRAGAN Referring Unavailable KRUNAL BARRAGAN Attending Unavailable SUPPAN, LETICIA A Primary Care Unavailable SUPPAN, LETICIA A Attending Unavailable SUPPAN, LETICIA A Primary Care Unavailable SUPPAN, LETICIA A Referring Unavailable WILLI CHURCH Referring Unavailable ERUM MCKINLEY Primary Care Unavailable ERUM MCKINLEY Primary Care Unavailable EURM MCKINLEY Referring Unavailable SHAWANDA HALE Attending Unavailable ERUM MCKINLEY Primary Care Unavailable HEENA, ALEXUS J Referring Unavailable HEENA, ALEXUS J Attending Unavailable SUPPAN, LETICIA A Primary Care Unavailable TIEN, LORI J Referring Unavailable ERUM MCKINLEY Primary Care Unavailable LORI CHAUHAN Referring Unavailable ERUM MCKINLEY Primary Care Unavailable LORI CHAUHAN Referring Unavailable VELASQUEZ RICHARDSON Attending Unavailable ERUM MCKINLEY Primary Care Unavailable ERUM MCKINLEY Primary Care Unavailable SHAWANDA HALE Referring Unavailable SHAWANDA HALE Attending Unavailable ERUM MCKINLEY Primary Care Unavailable ERUM MCKINLEY Primary Care Unavailable SHAWANDA HALE Referring Unavailable MCKINLEYERUM Primary Care Unavailable DOROTHY GIBBONS Attending Unavailable RUSSELL PRASAD Attending Unavailable ELÍAS ERUM SAMUEL Primary Care Unavailable MCKINLEYERUM WINTER JIMMIE Primary Care Unavailable SUPPAN, LETICIA A Primary Care Unavailable SUPPAN, LETICIA A Primary Care Unavailable VIRI BEASLEY Referring Unavailable SUPPAN, LETICIA A Primary Care Unavailable VIRI BEASLEY Attending Unavailable SELF Referring Unavailable ERUM MCKINLEY Primary Care Unavailable MCKINLEY, ERUM SAMUEL Primary Care Unavailable ALEXUS NAIK Referring Unavailable MCKINLEY, ERUM SAMUEL Primary Care Unavailable RAJGURU, ALEXUS J Referring Unavailable LUIS EDUARDO RICO Referring Unavailable SUPPAN, LETICIA A Primary Care Unavailable KRISTEN HERRMANN Attending Unavailable SUPPAN, LETICIA A Primary Care Unavailable SUPPAN, LETICIA A Primary Care Unavailable RASHAUN RIVERS Consulting Unavailable LYNNE BIGGS Admitting Unavailable LORI MCCORD Attending Unavailable Medications Current Medications Medication Drug Class(es) Dates Sig (Normalized) Sig (Original) benzonatate 100 mg oral capsule (9 sources) Non-narcotic Antitussive Start: 10-24-2024 End: 10-31-2024 take 1 capsule by mouth three times daily as needed for cough benzonatate (TESSALON PERLE) 100 mg capsule Indications: Acute URI Take 1 capsule by mouth three times a day as needed for cough for up to 7 days. 21 capsule 10/24/2024 10/31/2024 Active Start: 08-30-2024 End: 09-14-2024 take 1 capsule by mouth three times daily as needed for cough benzonatate (TESSALON PERLE) 100 mg capsule Indications: Pneumonia of right lower lobe due to infectious organism Take 1 capsule by mouth three times a day as needed for cough for up to 15 days. 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 1 tablet 01/24/2025 01/24/2025 Active doxycycline hyclate 100 mg oral tablet (3 sources) Tetracycline-class Drug Start: 04-28-2024 End: 05-05-2024 take 1 tablet by mouth twice daily doxycycline (VIBRA-TABS) 100 mg tablet Take 1 tablet by mouth two times a day for 7 days. 14 tablet 04/28/2024 05/05/2024 Active Start: 08-11-2020 End: 08-21-2020 take 1 tablet by mouth twice daily doxycycline (VIBRA-TABS) 100 mg tablet Indications: Abnormal chest x-ray Take 1 tablet by mouth twice daily for 10 days. 20 tablet 08/11/2020 08/21/2020 Inhalational Spacing Device (1 source) Start: 04-28-2024 End: 04-28-2024 Inhalational Spacing Device 1 Device one time only for 1 dose. 1 Each 04/28/2024 04/28/2024 Active iv contrast (will be provided with radiology test) (3 sources) Start: 09-06-2022 End: 09-07-2022 inject 1 dose intravenously once iv contrast (will be provided with radiology test) Indications: Visual hallucinations , Cognitive impairment, mild, so stated MRI Brain Inject, intravenously, once for 1 dose.No IV access, insert saline lock prior to beginning of sedation, infusion, injection of imaging exam.Discontinue saline lock post exam. If Pt. has a central line or IVAD, may access for administration according to line specific nursing protocol.Once exam is complete flush line and de-access according to line specific nursing protocol in the MR contrast administration guidelines link 1 Each 0 09/06/2022 09/07/2022 Active Start: 09-06-2022 End: 09-06-2022 inject 1 dose intravenously once iv contrast (will be provided with radiology test) MRI Brain Inject, intravenously, once for 1 dose.No IV access, insert saline lock prior to beginning of sedation, infusion, injection of imaging exam.Discontinue saline lock post exam. If Pt. has a central line or IVAD, may access for administration according to line specific nursing protocol.Once exam is complete flush line and de-access according to line specific nursing protocol in the MR contrast administration guidelines link 1 Each 0 09/06/2022 09/06/2022 Discontinued Start: 09-06-2022 End: 09-06-2022 inject 1 dose intravenously once iv contrast (will be provided with radiology test) Indications: Visual hallucinations MRI Brain Inject, intravenously, once for 1 dose.No IV access, insert saline lock prior to beginning of sedation, infusion, injection of imaging exam.Discontinue saline lock post exam. If Pt. has a central line or IVAD, may access for administration according to line specific nursing protocol.Once exam is complete flush line and de-access according to line specific nursing protocol in the MR contrast administration guidelines link 1 Each 0 09/06/2022 09/06/2022 Discontinued Comment on above: MRI Brain Inject, in travenously, once for 1 dose.No IV access, insert saline lock prior to beginning of sedation, infusion, injection of imaging exam.Discontinue saline lock post exam. If Pt. has a central line or IVAD, may access for administration according to line specific nursing protocol.Once exam is complete flush line and de-access according to line specific nursing protocol in the MR contrast administration guidelines link levoFLOXacin 750 mg oral tablet (4 sources) Quinolone Antimicrobial Start: End: take 1 tablet by mouth once daily levoFLOXacin (LEVAQUIN) 750 mg tablet Indications: Pneumonia of right lower lobe due to infectious organism Take 1 tablet by mouth once daily for 7 days. 7 tablet 08/30/2024 09/06/2024 Active LORazepam 0.5 mg oral tablet (8 sources) Benzodiazepine Start: End: LORazepam (ATIVAN) 0.5 mg Indications: Claustrophobia Take 1 tablet one hour before arriving for MRI brain for relaxation. If anxiety is not controlled, take 2nd tablet at the time your check in for MRI brain. 2 tablet 0 01/13/2024 01/21/2024 Active Start: 09-28-2022 End: 09-28-2022 LORazepam (ATIVAN) 0.5 mg In dications: Test anxiety Take 1 tablet by mouth one time only for 1 dose. May repeat with second table as needed for procedural anxiety 2 tablet 0 09/28/2022 09/28/2022 Start: 09-22-2022 End: 09-22-2022 LORazepam (ATIVAN) 0.5 mg In dications: Test anxiety Take 1 tablet by mouth one time only for 1 dose. May repeat with second table as needed for procedural anxiety 2 tablet 0 09/22/2022 09/22/2022 Active Start: 09-06-2022 End: 09-06-2022 LORazepam (ATIVAN) 0.5 mg In dications: Test anxiety Take 1 tablet by mouth one time only for 1 dose. May repeat with second table as needed for procedural anxiety 2 tablet 0 09/06/2022 09/06/2022 Comment on above: Take 1 tablet by shantell th one time only for 1 dose. May repeat with second table as needed for procedural anxiety meloxicam 15 mg oral tablet (6 sources) Nonsteroidal Anti-inflammatory Drug Start: 2024 End: 2024 take 1 tablet by mouth once daily meloxicam (MOBIC) 15 mg tablet Take 1 tablet by mouth once daily. 30 tablet 09/05/2024 10/05/2024 Active methylPREDNISolone (1 source) Corticosteroid Start: 2023 End: 2023 methylPREDNISolone (MEDROL, MARY,) 4 mg Dose-Pack Indications: Acute cough Follow dosing instructions, take with food. 21 tablet 04/14/2024 04/20/2024 Active mupirocin 0.02 mg/mg topical ointment (1 source) RNA Synthetase Inhibitor Antibacterial Start: 2022 End: 2022 mupirocin (BACTROBAN) 2 % ointment Indications: Pre-operative examination Apply 0.5 inch with cotton swab (Q-tip) to each nostril in the morning and evening for 5 days prior to and including day of surgery. 22 g 0 12/13/2022 12/20/2022 Suspended Comment on above: Apply 0.5 inch with cotton swab (Q-tip) to each nostril in the morning and evening for 5 days prior to and including day of surgery. perflutren lipid microspheres 1.3 mL in NaCl (PF) 0.9% 10 mL injection (DEFINITY) (1 source) Start: 2020 End: 2021 perflutren lipid microspheres 1.3 mL in NaCl (PF) 0.9% 10 mL injection (DEFINITY) predniSONE 20 mg oral tablet (20 sources) Start: 2024 End: 2024 take 1 tablet by mouth once daily predniSONE (DELTASONE) 20 mg tablet Indications: Pneumonia of right lower lobe due to infectious organism Take 1 tablet by mouth once daily for 5 days. 5 tablet 08/30/2024 09/04/2024 Active Start: 01-28-2024 End: 07-10-2024 take 3 tablets by mouth once daily predniSONE (DELTASONE) 20 mg tablet Take 60 mg by mouth once daily. 01/30/2024 07/10/2024 Discontinued (Course of therapy completed) Start: 09-21-2022 End: 10-25-2022 take 2 tablets by mouth once daily predniSONE (DELTASONE) 20 mg tablet Indications: Acute pain of left shoulder Take 2 tablets by mouth once daily. 10 tablet 09/21/2022 10/25/2022 Discontinued (Course of therapy completed) Comment on above: Take 2 tablets by [facility] once daily. 125 ml sodium chloride 9 mg/ml prefilled syringe (1 source) Start: 10-28-19 End: 01-27-20 sodium chloride 0.9 % (flush) 10 mL (BD POSIFLUSH) sulfamethoxazole 800 mg / trimethoprim 160 mg oral tablet (2 sources) Dihydrofolate Reductase Inhibitor Antibacterial, Sulfonamide Antimicrobial Start: 09-14-19 End: 09-19-19 take 1 tablet by mouth twice daily sulfamethoxazole -trimethoprim (BACTRIM DS) 800-160 mg per tablet Indications: Abscess of groin, right Take 1 tablet by mouth two times a day for 5 days. 10 tablet 09/14/2024 09/19/2024 Active Completed/Discontinued Medications Medication Drug Class(es) Dates Sig (Normalized) Sig (Original) acetaminophen 325 mg / oxyCODONE hydrochloride 5 mg oral tablet (20 sources) Opioid Agonist Start: 12-20-2022 End: 06-13-2023 take 1-2 tablets by mouth every four hours as needed for pain oxyCODONE-acetamin ophen (PERCOCET) 5-325 mg tablet Indications: S/P reverse total shoulder arthroplasty, left Take 1-2 tablets by mouth every 4 hours as needed for pain. 28 tablet 12/20/2022 06/13/2023 Discontinued Comment on above: Take 1-2 tablets by mouth every 4 hours as needed for pain. [id number] 200 actuat albuterol 0.09 mg/actuat metered dose inhaler (20 sources) beta2-Adrenergic Agonist Start: 10-09-2021 End: 11-01-2023 take 2 puff(s) by inhalation every four hours as needed for wheezing albuterol HFA (VENTOLIN HFA) 90 mcg/actuation inhaler Indications: 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) Inhale 2 Puffs as instructed every 4 hours as needed for wheezing/shortness of breath. 1 Each 5 11/01/2023 Suspended Start: 10-25-2020 Albuterol Sulf ate (Ventolin Hfa) 90 mcg/actuation HFA aerosol inhaler Active 2 NMA INHALATION EVERY 4 HOURS NEEDED as needed for Wheezing January 28, 2024 12:00am Start: 02-19-2020 End: 03-12-2021 take 2 puff(s) by inhalation every four hours as needed for wheezing albuterol HFA (VENTOLIN HFA) 90 mcg/actuation inhaler Indications: 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) Inhale 2 Puffs as instructed every 4 hours as needed for Wheezing/Shortness of Breath. 1 Inhaler 3 02/19/2020 03/12/2021 Discontinued Comment on above: Inhale 2 Puffs as in structed every 4 hours as needed for wheezing/shortness of breath. amoxicillin 875 mg / clavulanate 125 mg oral tablet (5 sources) Penicillin-class Antibacterial Start: 10-30-19 End: 11-09-19 take 1 tablet by mouth every twelve hours amoxicillin-clavul anate potassium (AUGMENTIN) 875-125 mg per tablet Indications: Acute maxillary sinusitis, recurrence not specified Take 1 tablet by mouth every 12 hours for 10 days. 20 tablet 10/29/2024 11/08/2024 Start: 04-28-2024 End: 05-05-2024 take 1 tablet by mouth twice daily amoxicillin-clavulanate potassium (AUGMENTIN) 875-125 mg per tablet Take 1 tablet by mouth two times a day for 7 days. 14 tablet 04/28/2024 05/05/2024 Active atorvastatin 40 mg oral tablet (20 sources) HMG-CoA Reductase Inhibitor Start: 05-23-2023 End: 05-01-2024 take 1 tablet by mouth once daily atorvastatin (LIPITOR) 40 mg tablet Indications: Mixed hyperlipidemia Take 1 tablet by mouth once daily. 90 tablet 3 05/01/2024 Suspended Start: 10-09-2021 End: 05-23-2023 take 1 tablet by mouth once daily atorvastatin (LIPITOR) 20 mg tablet Indications: Hyperlipidemia, unspecified hyperlipidemia type TAKE 1 TABLET BY MOUTH EVERY DAY 90 tablet 3 01/05/2022 10/25/2022 Discontinued Comment on above: TAKE 1 TABLET BY SHANTELL TH EVERY DAY Take 1 tablet by shantell th once daily. busPIRone hydrochloride 15 mg oral tablet (20 sources) Start: 11-22-2023 End: 11-06-2024 take 1 tablet by mouth twice daily busPIRone (BUSPAR) 15 mg tablet Take 1 tablet by mouth two times a day. 180 tablet 1 11/06/2024 Suspended Start: 10-25-2023 End: 12-24-2023 take 1 tablet by mouth twice daily busPIRone (BUSPAR) 10 mg tablet Take 1 tablet by mouth two times a day. 60 tablet 1 10/25/2023 11/22/2023 Discontinued Start: 05-26-2022 End: 07-08-2022 take 1 tablet by mouth three times daily busPIRone (BUSPAR) 5 mg tablet Indications: MARTELL (generalized anxiety disorder) Take 1 tablet by mouth three times daily. 90 tablet 2 05/26/2022 07/08/2022 Discontinued (Side Effects) Start: 10-09-2021 take 1 tablet by shantell three times daily busPIRone (BUSPAR) 5 mg tablet Indications: MARTELL (generalized anxiety disorder) Take 1 tablet by mouth three times daily. 90 tablet 2 10/09/2021 Active Comment on above: Take 1 tablet by shantell th three times daily. Take 1 tablet by shantell two times a day. TAKE 1 TABLET BY SHANTELL TWICE A DAY docusate sodium 100 mg oral capsule (20 sources) Start: 12-21-19 End: 07-10-20 take 1 capsule by mouth twice daily docusate sodium (COLACE) 100 mg capsule Indications: S/P reverse total shoulder arthroplasty, left Take 1 capsule by mouth twice daily. 30 capsule 1 12/20/2022 07/10/2024 Discontinued (Course of therapy completed) Comment on above: Take 1 capsule by mo [facility] twice daily. donepezil hydrochloride 5 mg oral tablet (20 sources) Start: 01-27-20 End: 11-27-20 24 take 1 tablet by mouth once daily at breakfast donepezil (ARICEPT) 10 mg tablet Indications: Major neurocognitive disorder (HCC) , Visual hallucinations , Restlessness and agitation , Delusions (HCC) Take 1 tablet by mouth daily with breakfast. 90 tablet 1 01/27/2024 02/24/2024 Discontinued Start: 12-19-2023 End: 11-06-2024 take 1 tablet by mouth once daily at breakfast donepezil (ARICEPT) 5 mg tablet Indications: Major neurocognitive disorder (HCC) , Visual hallucinations , Restlessness and agitation , Delusions (HCC) Take 1 tablet by mouth daily with breakfast. 90 tablet 1 11/06/2024 Suspended fluticasone / salmeterol (20 sources) Corticosteroid, beta2-Adrenergic Agonist Start: 09-27-2024 End: 09-27-2025 take 1 puff(s) by inhalation twice daily fluticasone-salmeterol (WIXELA INHUB) 250-50 mcg/dose inhaler Inhale 1 Puff as instructed two times a day. 3 Each 3 09/27/2024 09/27/2025 Suspended Start: 09-27-2024 End: 09-27-2025 take 1 puff(s) by inhalation twice daily fluticasone-salmeterol (WIXELA INHUB) 250-50 mcg/dose inhaler Inhale 1 Puff as instructed two times a day. 3 Each 3 09/27/2024 09/27/2025 Active Start: 11-04-2023 End: 09-26-2024 take 1 puff(s) by inhalation twice daily fluticasone-salmeterol (WIXELA INHUB) 250-50 mcg/dose inhaler Inhale 1 Puff as instructed two times a day. 3 Each 3 11/04/2023 09/26/2024 Discontinued Start: 11-04-2023 End: 11-03-2024 take 1 puff(s) by inhalation twice daily fluticasone-salmeterol (WIXELA INHUB) 250-50 mcg/dose inhaler Inhale 1 Puff as instructed two times a day. 3 Each 3 11/04/2023 11/03/2024 Active Start: 11-01-2023 End: 11-04-2023 take 1 puff(s) by inhalation twice daily as needed fluticasone-salmeterol (ADVAIR DISKUS) 250-50 mcg/dose inhaler Indications: 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) INHALE 1 PUFF INSTRUCTED TWICE DAILY NEEDED (ASTHMA). 1 Each 11/01/2023 11/04/2023 Discontinued (Course of therapy completed) Start: 03-14-2023 End: 11-01-2023 take 1 puff(s) by inhalation twice daily as needed fluticasone-salmeterol (ADVAIR DISKUS) 250-50 mcg/dose inhaler Indications: 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) INHALE 1 PUFF INSTRUCTED TWICE DAILY NEEDED (ASTHMA). 1 Each 03/14/2023 11/01/2023 Discontinued Start: 03-14-2023 take 1 puff(s) by in halation twice daily as needed fluticasone-salmeterol (ADVAIR DISKUS) 250-50 mcg/dose inhaler Indications: Chronic obstructive airway disease with asthma INHALE 1 PUFF INSTRUCTED TWICE DAILY NEEDED (ASTHMA). 1 Each 03/14/2023 Active Start: 03-14-2023 take 1 puff(s) by in halation twice daily as needed fluticasone-salmeterol (ADVAIR DISKUS) 250-50 mcg/dose inhaler Indications: 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) INHALE 1 PUFF INSTRUCTED TWICE DAILY NEEDED (ASTHMA). 1 Each 03/14/2023 Active Start: 10-09-2021 End: 03-14-2023 take 1 puff(s) by inhalation twice daily as needed fluticasone-salmeterol (ADVAIR DISKUS) 250-50 mcg/dose inhaler Indications: Chronic obstructive airway disease with asthma INHALE 1 PUFF INSTRUCTED TWICE DAILY NEEDED (ASTHMA). 1 Each 5 10/09/2021 03/14/2023 Discontinued Start: 10-09-2021 End: 03-14-2023 take 1 puff(s) by inhalation twice daily as needed fluticasone-salmeterol (ADVAIR DISKUS) 250-50 mcg/dose inhaler Indications: 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) INHALE 1 PUFF INSTRUCTED TWICE DAILY NEEDED (ASTHMA). 1 Each 10/09/2021 03/14/2023 Discontinued Start: 10-09-2021 take 1 puff(s) by in halation twice daily as needed fluticasone-salmeterol (ADVAIR DISKUS) 250-50 mcg/dose inhaler Indications: 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) INHALE 1 PUFF INSTRUCTED TWICE DAILY NEEDED (ASTHMA). 1 Each 10/09/2021 Suspended Start: 10-09-2021 take 1 puff(s) by in halation twice daily as needed fluticasone-salmeterol (ADVAIR DISKUS) 250-50 mcg/dose inhaler Indications: 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) INHALE 1 PUFF INSTRUCTED TWICE DAILY NEEDED (ASTHMA). 1 Each 10/09/2021 Active Start: 10-09-2021 take 1 puff(s) by in halation twice daily as needed fluticasone-salmeterol (ADVAIR DISKUS) 250-50 mcg/dose inhaler Indications: 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) INHALE 1 PUFF INSTRUCTED TWICE DAILY NEEDED (ASTHMA). 1 Each 10/09/2021 Active Start: 10-25-2020 take 1 puff(s) by in halation twice daily Fluticasone Propion-Salmeterol 1 PUFF inhaler Active 1 NMA INHALATION TWICE A DAY October 25, 2020 1:00am Start: 03-10-2020 End: 03-12-2021 take 1 puff(s) by inhalation twice daily as needed fluticasone-salmeterol (ADVAIR DISKUS) 250-50 mcg/dose Indications: 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) INHALE 1 PUFF INSTRUCTED TWICE DAILY NEEDED (ASTHMA). 1 Inhaler 03/10/2020 03/12/2021 Discontinued Comment on above: INHALE 1 PUFF INS TRUCTED TWICE DAILY NEEDED (ASTHMA). Inhale 1 Puff as ins tructed two times a day. hydrOXYzine hydrochloride 10 mg oral tablet (6 sources) Antihistamine Start: 07-28-20 End: 08-02-20 take 1 tablet by mouth every eight hours as needed hydrOXYzine HCl (ATARAX) 10 mg tablet Take 1 tablet by mouth three times a day as needed for anxiety. 30 tablet 0 08/02/2023 Active Comment on above: Take 1 tablet by shantell th three times a day as needed for anxiety. memantine hydrochloride 10 mg oral tablet (20 sources) J-ltwsjm-G-aspartate Receptor Antagonist Start: 09-17-19 End: 05-05-20 take 1 tablet by mouth twice daily memantine (NAMENDA) 10 mg tablet Indications: Major neurocognitive disorder (HCC) Take 1 tablet by mouth two times a day. 180 tablet 1 11/06/2024 05/05/2025 Suspended Start: 05-24-2024 End: 11-20-2024 memantine (NAMENDA) 10 mg ta blet Indications: Major neurocognitive disorder (HCC) Take 1 tablet by mouth two times a day. Week One: take 1/2 tablet (5mg) in the morning Week Two: take 1/2 tablet (5mg) in the morning and take 1/2 tablet (5mg) in the evening Week Three: take 1 tablet (10mg) in the morning and take 1/2 tablet (5mg) in the evening Week Four: take 1 tablet (10mg) in the morning and take 1 tablet (10mg) in the evening -this is the full dose 60 tablet 5 05/24/2024 09/17/2024 Discontinued 24 hr metoprolol succinate 25 mg extended release oral tablet (20 sources) beta-Adrenergic Kirstin Start: 10-09-2021 End: 05-21-2024 take 1 tablet by mouth once daily metoprolol succinate ER (TOPROL XL) 25 mg 24 hr tablet Indications: SVT (supraventricular tachycardia) ([facility]) TAKE 1 TABLET BY MOUTH EVERY DAY 90 tablet 3 01/05/2022 10/25/2022 Discontinued Comment on above: TAKE 1 TABLET BY SHANTELL TH EVERY DAY Take 1 tablet by shantell th once daily. MULTIVITAMIN ORAL (20 sources) MULTIVITAMIN ORA L Take by mouth once daily. Suspended MULTIVITAMIN ORA L Take by mouth once daily. Active MULTIVITAMIN ORA L Take by mouth once daily. 0 Active Comment on above: Take by mouth once d aily. nitroglycerin 0.4 mg sublingual tablet (20 sources) Nitrate Vasodilator Start: 01-15-20 End: 10-05-19 nitroglycerin sublingual (NITROQUICK) 0.4 mg SL tablet Dissolve 1 tablet under the tongue every 5 minutes as needed for Chest Pain. 1 Bottle of 25 01/14/2021 10/05/2023 Discontinued Comment on above: Dissolve 1 tablet un maribell the tongue every 5 minutes as needed for Chest Pain. OLANZapine 2.5 mg oral tablet (20 sources) Atypical Antipsychotic Start: 11-16-19 End: 11-22-19 take 2 tablets by mouth once daily at bedtime OLANZapine (ZYPREXA) 2.5 mg tablet Take 2 tablets by mouth daily at bedtime. 30 tablet 0 11/16/2023 11/22/2023 Discontinued Start: 10-25-2023 End: 11-06-2024 OLANZapine (ZYPREXA) 2.5 mg tablet use 1 to 2 tablets at bedtime 180 tablet 2 11/06/2024 Suspended Comment on above: Take 1 tablet by shantell th daily at bedtime. Take 2 tablets by mo uth daily at bedtime. ondansetron 4 mg disintegrating oral tablet (20 sources) Serotonin-3 Receptor Antagonist Start: 12-21-19 End: 10-05-19 take 1 tablet by mouth every eight hours as needed for nausea ondansetron orally disintegrating (ZOFRAN ODT) 4 mg disintegrating tablet Indications: S/P reverse total shoulder arthroplasty, left Take 1 tablet by mouth every 8 hours as needed for nausea/vomiting. 30 tablet 1 12/20/2022 10/05/2023 Discontinued Comment on above: Take 1 tablet by shantell th every 8 hours as needed for nausea/vomiting. OTC PRODUCT (20 sources) End: 07-10-20 take 1 tablet by mouth once daily OTC PRODUCT Take 1 tablet by mouth once daily. PREVAGEN REGULAR STRENGTH 07/10/2024 Discontinued (Discontinued by Patient) take 1 tablet by mouth once kellen y OTC PRODUCT Take 1 tablet by mouth once daily. PREVAGEN REGULAR STRENGTH Active take 1 tablet by mouth once kellen y OTC PRODUCT Take 1 tablet by mouth once daily. PREVAGEN REGULAR STRENGTH 0 Active Comment on above: Take 1 tablet by shantell th once daily. PREVAGEN REGULAR STRENGTH PARoxetine hydrochloride 20 mg oral tablet (17 sources) Serotonin Reuptake Inhibitor Start: 09-28-2022 End: 10-25-2022 PARoxetine (PAXIL) 20 mg tablet 1 tab every day alternating with 1/2 tab every other day x 1 week, then 1/2 tab daily x 1 week, then 1/2 tab every other day x 1 week and off. with 1 tab every other day 11 tablet 0 09/28/2022 10/25/2022 Discontinued (Course of therapy completed) Start: 09-06-2022 End: 09-06-2022 take 1 tablet by mouth once daily PARoxetine ER (PAXIL CR) 37.5 mg 24 hr tablet Indications: Generalized anxiety disorder , Obsessive-compulsive disorder, unspecified type Take 1 tablet by mouth once daily. 30 tablet 5 09/06/2022 09/06/2022 Discontinued Start: 08-02-2022 End: 09-06-2022 take 1 tablet by mouth once daily PARoxetine (PAXIL) 20 mg tablet Take 1 tablet by mouth once daily. 30 tablet 2 08/02/2022 09/06/2022 Discontinued Start: 07-08-2022 End: 08-02-2022 take 1 tablet by mouth once daily PARoxetine (PAXIL) 10 mg tablet Take 1 tablet by mouth once daily. 30 tablet 2 07/08/2022 08/02/2022 Discontinued Comment on above: Take 1 tablet by shantell once daily. 1 tab every day alte rnating with 1/2 tab every other day x 1 week, then 1/2 tab daily x 1 week, then 1/2 tab every other day x 1 week and off. with 1 tab every other day polyethylene glycol 3350 23740 mg powder for oral solution (20 sources) Osmotic Laxative Start: 11-25-19 polyethylene glycol 3350 (MIRALAX) 17 gram/dose powder 17g (1 scoop) with 8 oz daily as needed for constipation 225 g 5 11/24/2021 Suspended Comment on above: 17g (1 scoop) with 8 oz daily as needed for constipation QUEtiapine 25 mg oral tablet (20 sources) Atypical Antipsychotic Start: 09-20-19 End: 11-19-19 24 take 1 tablet by mouth once daily at bedtime QUEtiapine (SEROQUEL) 50 mg tablet Take 1 tablet by mouth daily at bedtime. 30 tablet 1 09/20/2023 10/25/2023 Discontinued (Side Effects) Start: 05-26-2022 End: 08-30-2023 QUEtiapine (SEROQUEL) 25 mg tablet Indications: Obsessive-compulsive disorder, unspecified type , Medication management TAKE 1-2 TABS BEFORE BED FOR INSOMNIA NEEDED. 60 tablet 2 05/26/2022 10/27/2022 Discontinued Start: 10-09-2021 QUEtiapine (SE ROQUEL) 25 mg tablet Indications: Obsessive-compulsive disorder, unspecified type , Medication management TAKE 1-2 TABS BEFORE BED FOR INSOMNIA NEEDED. 60 tablet 2 10/09/2021 Active Start: 07-04-2020 End: 09-12-2020 QUEtiapine (SEROQUEL) 25 mg tablet Indications: Generalized anxiety disorder , Obsessive-compulsive disorder, unspecified type , Medication management TAKE 1-2 TABS BEFORE BED FOR INSOMNIA NEEDED. 60 tablet 08/19/2020 09/12/2020 Discontinued (Adjust Sig - Block E-Cancel) Start: 07-23-2019 End: 11-16-2023 take 1 tablet by mouth three times daily in the morning, then take 4 tablets by mouth in the evening QUEtiapine (SEROQUEL) 25 mg tablet TAKE 1 TABLET BY MOUTH THREE TIMES A DAY. TAKE AT 6 AM, 12 PM, AND 4 PM. 270 tablet 1 10/17/2023 10/25/2023 Discontinued (Side Effects) Comment on above: TAKE 1-2 TABS BEFORE BED FOR INSOMNIA NEEDED. Take 1 tablet by shantell th three times a day. Take at 6 am, 12 pm, and 4 pm. Take 1 tablet by shantell th daily at bedtime. sertraline 25 mg oral tablet (20 sources) Serotonin Reuptake Inhibitor Start: End: take 1 tablet by mouth once daily sertraline (ZOLOFT) 25 mg tablet Take 1 tablet by mouth once daily. 30 tablet 5 09/28/2022 03/14/2023 Discontinued Comment on above: Take 1 tablet by shantell th once daily. tadalafil 10 mg oral tablet (20 sources) Phosphodiesterase 5 Inhibitor Start: End: Tadalafil (CIALIS) 10 mg tablet Indications: Erectile dysfunction, unspecified erectile dysfunction type 1-2 tabs daily as needed 30 tablet 2 02/01/2024 Suspended Comment on above: 1-2 tabs daily as ne eded tamsulosin hydrochloride 0.4 mg oral capsule (20 sources) alpha-Adrenergic Kirstin Start: tamsulosin (FLOMAX) 0.4 mg Indications: BPH with obstruction/lower urinary tract symptoms Take 1 capsule by mouth daily at bedtime. Patient should start on April 02, 2024. 90 capsule 3 04/02/2024 Suspended Start: 04-02-2024 tamsulosin (FL OMAX) 0.4 mg Indications: BPH with obstruction/lower urinary tract symptoms Take 1 capsule by mouth daily at bedtime. Patient should start on April 02, 2024. 90 capsule 3 04/02/2024 Active Start: 04-02-2024 tamsulosin (FL OMAX) 0.4 mg Indications: BPH with obstruction/lower urinary tract symptoms Take 1 capsule by mouth daily at bedtime. Patient should start on April 02, 2024. 90 capsule 3 04/02/2024 Active Start: 04-02-2024 tamsulosin (FL OMAX) 0.4 mg Indications: BPH with obstruction/lower urinary tract symptoms Take 1 capsule by mouth daily at bedtime. Patient should start on April 02, 2024. 90 capsule 3 04/02/2024 Active Start: 04-02-2024 tamsulosin (FL OMAX) 0.4 mg Indications: BPH with obstruction/lower urinary tract symptoms Take 1 capsule by mouth daily at bedtime. Patient should start on April 02, 2024. 90 capsule 3 04/02/2024 Active Start: 04-02-2024 tamsulosin (FL OMAX) 0.4 mg Indications: BPH with obstruction/lower urinary tract symptoms Take 1 capsule by mouth daily at bedtime. Patient should start on April 02, 2024. 90 capsule 3 04/02/2024 Active Start: 04-02-2024 tamsulosin (FL OMAX) 0.4 mg Indications: BPH with obstruction/lower urinary tract symptoms Take 1 capsule by mouth daily at bedtime. Patient should start on April 02, 2024. 90 capsule 3 04/02/2024 Active Start: 04-02-2024 tamsulosin (FL OMAX) 0.4 mg Indications: BPH with obstruction/lower urinary tract symptoms Take 1 capsule by mouth daily at bedtime. Patient should start on April 02, 2024. 90 capsule 3 04/02/2024 Active Start: 04-02-2024 tamsulosin (FL OMAX) 0.4 mg Indications: BPH with obstruction/lower urinary tract symptoms Take 1 capsule by mouth daily at bedtime. Patient should start on April 02, 2024. 90 capsule 3 04/02/2024 Active Start: 04-02-2024 tamsulosin (FL OMAX) 0.4 mg Indications: BPH with obstruction/lower urinary tract symptoms Take 1 capsule by mouth daily at bedtime. Patient should start on April 02, 2024. 90 capsule 3 04/02/2024 Active Start: 04-02-2024 tamsulosin (FL OMAX) 0.4 mg Indications: BPH with obstruction/lower urinary tract symptoms Take 1 capsule by mouth daily at bedtime. Patient should start on April 02, 2024. 90 capsule 3 04/02/2024 Active Start: 11-01-2023 End: 02-07-2024 take 1 capsule by mouth once daily at bedtime tamsulosin (FLOMAX) 0.4 mg Indications: BPH with obstruction/lower urinary tract symptoms Take 1 capsule by mouth daily at bedtime. 30 capsule 5 11/01/2023 02/07/2024 Discontinued Start: 10-09-2021 End: 05-09-2023 take 1 capsule by mouth once daily at bedtime tamsulosin (FLOMAX) 0.4 mg Indications: BPH with obstruction/lower urinary tract symptoms Take 1 capsule by mouth daily at bedtime. 30 capsule 5 04/29/2022 10/27/2022 Discontinued Comment on above: Take 1 capsule by mo [facility] daily at bedtime. vitamin b12 1 mg sublingual tablet (20 sources) Vitamin B12 Start: 05-06-2023 End: 10-05-2023 Cyanocobalamin 1,000 mcg subl Indications: Low serum vitamin B12 Dissolve 1 tablet under the tongue once daily. Recommended by neuro Dr. Muro 90 tablet 3 05/06/2023 10/05/2023 Discontinued End: 10-05-2023 take 1 tablet by mouth once daily cyanocobalamin, vitamin B-12, 5,000 mcg TbIE Take 1 tablet by mouth once daily. 0 10/05/2023 Discontinued Comment on above: Dissolve 1 tablet un maribell the tongue once daily. Recommended by neuro Dr[facility] Problems Active Problems Problem Classification Problem Date Documented Date Episodic/Chronic Acquired foot deformities (8 sources) Acquired hallux valgus; Translations: [Hallux valgus (acquired), unspecified foot] Onset: 12-20-2024 06-06-2023 Chronic Acute cerebrovascular disease (11 sources) Cerebral hemorrhage; Translations: [Nontraumatic intracerebral hemorrhage, unspecified] Onset: 01-25-2025 01-25-2025 Chronic Alcohol-related disorders (2 sources) Continuous chronic alcoholism; Translations: [Alcohol dependence, uncomplicated] 06-13-2023 Chronic Anxiety disorders (20 sources) Generalized anxiety disorder; Translations: [Generalized anxiety disorder] Onset: 10-24-2007 03-02-2016 Chronic Asthma (1 source) Asthma-chronic obstructive pulmonary disease overlap syndrome; Translations: [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)] 11-03-2023 Chronic Cardiac dysrhythmias (20 sources) Supraventricular tachycardia; Translations: [Supraventricular tachycardia] Onset: 10-09-2021 Chronic Chronic obstructive pulmonary disease and bronchiectasis (20 sources) Mild chronic obstructive pulmonary disease; Translations: [Chronic obstructive pulmonary disease, unspecified] Onset: 10-24-2007 09-03-2016 Chronic Chronic ulcer of skin (1 source) 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; Translations: [Chronic ulcer of other specified sites] 07-11-2023 Chronic Complications of surgical procedures or medical care (3 sources) Disorder of tendon repair; Translations: [Other intraoperative and postprocedural complications and disorders of the musculoskeletal system] Episodic Coronary atherosclerosis and other heart disease (20 sources) Coronary atherosclerosis; Translations: [Atherosclerotic heart disease of [place] coronary artery with other forms of angina pectoris] Onset: 01-14-2021 04-27-2021 Chronic Delirium, dementia, and amnestic and other cognitive disorders (20 sources) Dementia; Translations: [Mild dementia with agitation, unspecified dementia type (HCC)] Onset: 08-30-2023 08-02-2023 Chronic Diabetes mellitus without complication (1 source) Hyperglycemia; Translations: [Hyperglycemia, unspecified] Episodic Disorders of lipid metabolism (20 sources) Hyperlipidemia; Translations: [Hyperlipidemia, unspecified] Onset: 11-27-2008 Chronic E Codes: Fall (3 sources) Fall; Translations: [Unspecified fall, initial encounter] Onset: 01-25-2025 01-16-2025 Episodic Esophageal disorders (20 sources) Gastroesophageal reflux disease; Translations: [Gastro-esophageal reflux disease without esophagitis] Onset: 12-20-2022 Chronic Essential hypertension (1 source) Essential (primary) hypertension; Translations: [Hypertension, unspecified type] Onset: 01-25-2025 Chronic Genitourinary symptoms and ill-defined conditions (6 sources) Scalding pain on urination ; Translations: [Dysuria] 10-03-2023 Episodic Hyperplasia of prostate (20 sources) Benign prostatic hypertrophy with outflow obstruction; Translations: [Benign prostatic hyperplasia with lower urinary tract symptoms] Onset: 06-06-2022 Chronic Immunizations and screening for infectious disease (1 source) Vaccination needed; Translations: [Encounter for immunization] Episodic Intracranial injury (1 source) Contusion and laceration of cerebrum, unspecified, with loss of consciousness of unspecified duration, initial encounter; Translations: [Intraparenchymal hematoma of brain with loss of consciousness, unspecified laterality, initial encounter ([facility])] Onset: 01-25-2025 Episodic Miscellaneous mental health disorders (20 sources) Primary insomnia; Translations: [Primary insomnia] Onset: 03-02-2016 03-02-2016 Chronic Mood disorders (20 sources) Depressive disorder; Translations: [Minor depression] Onset: 10-24-2007 08-14-2018 Chronic Nutritional deficiencies (1 source) Serum vitamin B12 low; Translations: [Deficiency of other specified B group vitamins] 05-10-2023 Episodic Open wounds of head; neck; and trunk (1 source) Laceration of eyebrow; Translations: [Laceration without foreign body of unspecified eyelid and periocular area, initial encounter] 01-16-2025 Episodic Osteoarthritis (1 source) Osteoarthritis of joint of left shoulder region; Translations: [Secondary osteoarthritis, left shoulder] Chronic Other aftercare (2 sources) Long-term current use of drug therapy; Translations: [Other 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 school teacher (current) drug therapy] 07-16-2024 Episodic Other aftercare (1 source) Other 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 school teacher (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) 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 therapy; Translations: [Encounter for long-term (current) use of medications] Onset: 11-06-2024 Episodic Other circulatory disease (2 sources) Orthostatic hypotension; Translations: [Orthostatic hypotension] 05-04-2023 Episodic Other circulatory disease (1 source) Jugular venous engorgement; Translations: [Other specified symptoms and signs involving the circulatory and respiratory systems] 06-26-2024 Episodic Other circulatory disease (1 source) Other specified symptoms and signs involving the circulatory and respiratory systems; Translations: [Diminished pulses in lower extremity] Onset: 12-20-2024 Episodic Other connective tissue disease (20 sources) History of reverse prosthetic total arthroplasty of left shoulder; Translations: [Presence of left artificial shoulder joint] Onset: 01-03-2023 Chronic Other connective tissue disease (1 source) Nontraumatic rupture of rotator cuff of left shoulder; Translations: [Unspecified rotator cuff tear or rupture of left shoulder, not specified as traumatic] Episodic Other connective tissue disease (3 sources) Full thickness rotator cuff tear; Translations: [Complete rotator cuff tear or rupture of left shoulder, not specified as traumatic] Episodic Other connective tissue disease (1 source) Dysfunction of posterior tibial tendon; Translations: [Posterior tibial tendinitis, unspecified leg] 06-06-2023 Episodic Other connective tissue disease (1 source) Pain in both feet; Translations: [Pain in right foot] 08-28-2024 Episodic Other connective tissue disease (1 source) Trochanteric bursitis of left hip; Translations: [Trochanteric bursitis, left hip] 09-05-2024 Episodic Other connective tissue disease (1 source) Iliotibial band friction syndrome of left knee; Translations: [Iliotibial band syndrome, left leg] 09-05-2024 Episodic Other hereditary and degenerative nervous system conditions (5 sources) Impaired cognition; Translations: [Mild cognitive impairment, so stated] Chronic Other injuries and conditions due to external causes (3 sources) H/O: injury; Translations: [Personal history of other (healed) physical injury and trauma] 12-19-2023 Episodic Other injuries and conditions due to external causes (1 source) Closed injury of head; Translations: [Unspecified injury of head, initial encounter] 01-16-2025 Episodic Other injuries and conditions due to external causes (5 sources) Injury of head; Translations: [Unspecified injury of head, subsequent encounter] 01-24-2025 Episodic Other injuries and conditions due to external causes (2 sources) Unspecified injury of head, initial encounter; Translations: [Unspecified injury of head, initial encounter] Onset: 01-23-2025 Episodic Other injuries and conditions due to external causes (1 source) Unspecified injury of head, subsequent encounter; Translations: [Injury of head, subsequent encounter] Onset: 01-25-2025 Episodic Other injuries and conditions due to external causes (1 source) Personal history of other (healed) physical injury and trauma; Translations: [History of trauma] Onset: 11-06-2024 Episodic Other lower respiratory disease (4 sources) Cough; Translations: [Acute cough] 04-14-2024 Episodic Other male genital disorders (3 sources) Male erectile dysfunction, unspecified; Translations: [Impotence of organic origin] Chronic Other nervous system disorders (20 sources) 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; 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] Onset: 01-15-2019 03-18-2021 Chronic Other nervous system disorders (2 sources) Cognitive deficit in communication skills; Translations: [Cognitive communication deficit] 07-18-2024 Chronic Other nervous system disorders (1 source) Cognitive communication deficit; Translations: [Cognitive communication deficit] Onset: 07-18-2024 Chronic Other nervous system disorders (1 source) Impaired cognition; Translations: [Other symptoms and signs involving cognitive functions and awareness] 05-04-2023 Episodic Other nervous system disorders (5 sources) Ataxia; Translations: [Unspecified injury of head, initial encounter] 01-24-2025 Episodic Other nervous system disorders (1 source) Ataxia, unspecified; Translations: [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] Onset: 01-25-2025 Episodic Other non-traumatic joint disorders (4 sources) Shoulder pain; Translations: [Pain in left shoulder] Episodic Other non-traumatic joint disorders (2 sources) Chronic pain of left upper limb; Translations: [Pain in left shoulder] Episodic Other non-traumatic joint disorders (1 source) Pain in left shoulder; Translations: [Pain in joint, shoulder region] 09-21-2022 Episodic Other non-traumatic joint disorders (1 source) Swelling of joint of left wrist; Translations: [Effusion, left wrist] 01-13-2021 Episodic Other non-traumatic joint disorders (2 sources) Hip pain; Translations: [Pain in left hip] 09-05-2024 Episodic Other screening for suspected conditions (not mental disorders or infectious disease) (1 source) Imaging of thorax abnormal; Translations: [Abnormal findings on diagnostic imaging of other specified body structures] 08-20-2020 Chronic Other upper respiratory disease (1 source) Acute bronchospasm; Translations: [Acute bronchospasm] 02-05-2024 Episodic Other upper respiratory infections (4 sources) Acute upper respiratory infection; Translations: [Acute upper respiratory infection, unspecified] 04-27-2024 Episodic Peripheral and visceral atherosclerosis (1 source) Peripheral vascular disease, unspecified; Translations: [Peripheral vascular disease, unspecified] 01-08-2025 Chronic Residual codes; unclassified (5 sources) Restlessness and agitation; Translations: [Restlessness and agitation] 12-19-2023 Chronic Residual codes; unclassified (1 source) Restlessness and agitation; Translations: [Restlessness and agitation] Onset: 11-06-2024 Chronic Residual codes; unclassified (1 source) Daily drinker; Translations: [Other specified health status] Episodic Residual codes; unclassified (2 sources) Current drinker; Translations: [Habitual alcohol use] 03-13-2023 Episodic Residual codes; unclassified (4 sources) Neurocognitive disorder; Translations: [Unspecified symptoms and signs involving cognitive functions and awareness] 12-27-2023 Episodic Residual codes; unclassified (1 source) Procedure not done; Translations: [Procedure and treatment not carried out, unspecified reason] 06-18-2024 Episodic Schizophrenia and other psychotic disorders (10 sources) Delusions; Translations: [Delusional disorders] Onset: 07-10-2024 12-19-2023 Chronic Skin and subcutaneous tissue infections (1 source) Abscess of groin; Translations: [Cutaneous abscess of groin] 09-14-2024 Episodic Spondylosis; intervertebral disc disorders; other back problems (20 sources) Lumbar arthritis; Translations: [Spondylosis without myelopathy or radiculopathy, lumbar region] Onset: 02-28-2017 02-28-2017 Chronic Substance-related disorders (20 sources) History of clinical finding in subject; Translations: [History of marijuana use] Onset: 03-02-2016 Chronic Unclassified (1 source) APPOINTMENT CANCELLED 11-22-2023 Unclassified (1 source) PAD (peripheral artery disease) 01-09-2025 Unclassified (1 source) Acute cough; Translations: [Acute cough] Onset: 05-01-2024 Unclassified (1 source) Traumatic intracerebral hemorrhage with unknown loss of consciousness status, unspecified laterality, sequela; Translations: [Traumatic intracerebral hemorrhage with unknown loss of consciousness status, unspecified laterality, sequela] Onset: 01-25-2025 Viral infection (2 sources) Disease caused by 2019-nCoV; Translations: [COVID-19] Episodic Past or Other Problems Problem Classification Problem Date Documented Date Episodic/Chronic Acquired foot deformities (20 sources) Bunion; Translations: [Bunion of unspecified foot] Onset: 03-20-2007 03-02-2016 Episodic Blindness and vision defects (20 sources) Visual hallucinations; Translations: [Visual hallucinations] Onset: 09-06-2022 Episodic Cardiac dysrhythmias (20 sources) Palpitations; Translations: [Palpitations] Onset: 03-12-2021 03-12-2021 Episodic Conditions associated with dizziness or vertigo (20 sources) Vertigo; Translations: [Dizziness and giddiness] Onset: 03-22-2018 03-22-2018 Episodic Other and unspecified benign neoplasm (20 sources) Tubular adenoma of colon; Translations: [Benign neoplasm of colon, unspecified] Onset: 01-30-2018 03-12-2021 Episodic Other connective tissue disease (20 sources) Hypermobility syndrome; Translations: [Hypermobility syndrome] Onset: 03-20-2007 02-24-2016 Episodic Other connective tissue disease (20 sources) Partial thickness rotator cuff tear; Translations: [Incomplete rotator cuff tear or rupture of left shoulder, not specified as traumatic] Onset: 03-29-2016 09-22-2018 Episodic Other connective tissue disease (20 sources) Soft tissue lesion of shoulder region; Translations: [Bursopathy, unspecified] Onset: 11-27-2008 Resolved: 12-02-2011 12-02-2011 Episodic Other connective tissue disease (1 source) Pain in right foot; Translations: [Bilateral foot pain] Onset: 08-28-2024 Episodic Other connective tissue disease (1 source) Pain in left foot; Translations: [Bilateral foot pain] Onset: 08-28-2024 Episodic Other diseases of veins and lymphatics (1 source) Other specified disorders of veins; Translations: [Other specified disorders of veins] Onset: 07-10-2024 Episodic Other lower respiratory disease (20 sources) Dyspnea; Translations: [Shortness of breath] Onset: 01-06-2021 01-21-2021 Episodic Other lower respiratory disease (1 source) Shortness of breath; Translations: [Shortness of breath] Onset: 02-07-2024 Episodic Other male genital disorders (20 sources) Disorder of prostate; Translations: [Disorder of prostate, unspecified] Onset: 02-24-2016 02-24-2016 Episodic Other non-traumatic joint disorders (1 source) Pain in left hip; Translations: [Pain in left hip] Onset: 09-05-2024 Episodic Other screening for suspected conditions (not mental disorders or infectious disease) (20 sources) Patient encounter status; Translations: [Encounter for screening for malignant neoplasm of colon] Onset: 03-10-2017 Resolved: 03-12-2021 03-10-2017 Episodic Pneumonia (except that caused by tuberculosis or sexually transmitted disease) (5 sources) Community acquired pneumonia; Translations: [Pneumonia, unspecified organism] Onset: 09-10-2024 04-28-2024 Episodic Residual codes; unclassified (8 sources) History of clinical finding in subject; Translations: [Personal history of other specified conditions] Onset: 03-02-2016 08-24-2021 Episodic Residual codes; unclassified (20 sources) Family history of prostate cancer; Translations: [Family history of malignant neoplasm of prostate] Onset: 03-10-2020 03-10-2020 Episodic Residual codes; unclassified (20 sources) History of cardiac catheterization; Translations: [Other specified postprocedural states] Onset: 03-12-2021 03-12-2021 Episodic Residual codes; unclassified (2 sources) Unspecified symptoms and signs involving cognitive functions and awareness; Translations: [Neurocognitive disorder] Onset: 07-10-2024 Episodic Spondylosis; intervertebral disc disorders; other back problems (20 sources) Radicular pain; Translations: [Radiculopathy, site unspecified] Onset: 03-10-2017 09-09-2017 Episodic Results Test Name Value Interpretation Reference Range Facility NURSING PROGon 01-31-2025 NURSING PROG HNO ID: [id number] Author: MARY GONZALEZ RN Service: Nursing Author Type: Registered Nurse Type: Nursing Progress Note Filed: 01/31/2025 13:24 Note Text: Patient pending pickup for [facility] at 1400. Report called to [facility] Nurse. SIGNATURE: Mary Gonzalez RN [facility] NURSING PROG HNO ID: [id number] Author: TATIANA LAL, RN Service: Nursing Author Type: Registered Nurse Type: Nursing Progress Note Filed: 01/31/2025 03:51 Note Text: Summary: spit out meds Spit out 9pm meds. Re approached and tried to give meds, also spit those out. Became verbally abusive. Staff at bedside at all times. [facility] THERAPY NTon 01-31-2025 THERAPY NT HNO ID: [id number] Author: KEIRA WEINSTEIN PT Service: Physical Therapy Author Type: Sales Advisor Type: Therapy (PT/OT/Speech/Resp) Filed: 01/31/2025 13:15 Note Text: Attestation signed by Keira Weinstein PT at 01/31/2025 1:15 PM I reviewed and agree with the documentation corresponding to this therapy visit. SIGNATURE: Keira Weinstein PT DATE: January 31, 2025 TIME: 1:15 PM Physical Therapy Treatment Summary SERVICE DATE: 01/31/2025 SERVICE TIME: 810 ROOM: [id number] PT 6 Clicks Score: 13 DISCHARGE RECOMMENDATIONS Acute Rehab Recommended Discharge Disposition Comments: Patient functioning well below baseline, demonstrating significant deficits in cognition as well as strength and coordination. Recommend Acute Rehab to address listed deficits, anticipate will tolerate 3 hours of combined therapies daily Recommended Discharge Disposition Due to: Patient requires active, intensive rehabilitation by multiple therapy disciplines. Anticipate the patient will tolerate 3 hours of therapy per day., Functional deficits requiring ongoing therapy service prior to discharge home., Balance deficits, Coordination deficits ASSESSMENT Response to Therapy Interventions: Cognitive Deficits, Good Participation in Activities Patient continues to require increased levels of assistance with all mobility tasks. Patient with improved gait distance this session. All mobility movements initiated by this CHIEF RELAY TESTER, then patient would assist. continue to recommend acute care to improve strength, ROM, balance,endurance, normalized gait pattern, and independence with mobility tasks to prior level of function for safe return to home activity. 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 Per spouse, pt is typically independent with ADLs, does not use a device for mobility. Drives to familiar places (work, stores nearby) but provides transportation if driving to a new location. Spouse provides IADLs, manages pt's medication. Pt has had decline in memory the past several years prior to being diagosed with dementia, sometimes feels forgetful but typically oriented X2-3 SUBJECTIVE delayed response, agreeable to PT session THERAPY DIAGNOSIS Reduced mobility-other, Muscle Weakness (generalized), Unsteadiness on feet, General symptoms and signs-other TREATMENT INTERVENTIONS Therapeutic Exercise (58746), Therapeutic Activity (23948), Gait Training (53199) Therapeutic Exercise (34866) Treatment Minutes: 13 $ Therapeutic Exercise (16638) Billed Units: 1 unit Patient completed BLE strengthening (ankle pump, quad set, gluteal set, heel slide, hip abd/add to neutral, short arc quad, long arc quad, hip adductor squeeze) x 15 reps with minimal amount of assist. Therapeutic Activity (69589) Treatment Minutes: 2 $ Therapeutic Activity (11363) Billed Units: 0 units cuing/assist for proper movement/techniques with bed mobility, scooting, transfers. Positioned for comfort at end of session. Chair alarm on, sitter present. Gait Training (26882) Treatment Minutes: 8 $ Gait Training (38063) Billed Units: 1 unit cuing for proper posture, heel strike, step length, walker management, safety with turning, assist with walker management, and object negotiation. Timed Code Treatment (minutes): 23 Skilled Treatment Time (minutes): 23 TRAINING AND EDUCATION PROVIDED Assistive Device Use, Bed Mobility, Exercise Program, Gait Pattern, Reduction of Deviations, Positioning, Transfers THERAPEUTIC SKILLS USED Cues for Sequencing/Proper Technique for Activity, Cuing Tactile, Cuing Verbal, Cuing Visual, Facilitation of Joint Range of Motion, Movement Facilitation, Physical Assist, Postural Alignment Correction FUNCTIONAL STATUS mobility performed during session in bold, other mobility completed during prior session and may no longer be correct or appropriate to complete. Bed Mobility Supine To Sit: Moderate Assistance cuing for proper movements, assist with trunk/LEs, once movements initiated by (more content not included)... [facility] THERAPY NTon 01-30-2025 THERAPY NT HNO ID: [id number] Author: KEIRA WEINSTEIN, PT Service: Physical Therapy Author Type: Physical Therapist Type: Therapy (PT/OT/Speech/Resp) Filed: 01/30/2025 16:00 Note Text: Physical Therapy Treatment Summary SERVICE DATE: 01/30/2025 SERVICE TIME: 1508 to 1533 ROOM: [id number] PT 6 Clicks Score: 11 DISCHARGE RECOMMENDATIONS Acute Rehab Recommended Discharge Disposition Comments: Patient functioning well below baseline, demonstrating significant deficits in cognition as well as strength and coordination. Recommend Acute Rehab to address listed deficits, anticipate will tolerate 3 hours of combined therapies daily Recommended Discharge Disposition Due to: Patient requires active, intensive rehabilitation by multiple therapy disciplines. Anticipate the patient will tolerate 3 hours of therapy per day., Functional deficits requiring ongoing therapy service prior to discharge home., Balance deficits, Coordination deficits ASSESSMENT Response to Therapy Interventions: Cognitive Deficits, Low Activity Tolerance pt with difficulty initiating functional mobility--needed tactile/visual/verbal cues PRECAUTIONS Fall Risk, Bed/Chair Alarm CURRENT HOSPITAL COURSE 74 y.o male admitted for worsening mentation after fall ~9 days ago, CT revealed subacute L frontal IPH and R SDH, neuro following Relevant Past Medical History: dementia, COPD, anxiety, HLD HOME LIVING Patient Lives With: Spouse Assistance Available: 24-Hour Entry To Home: Stairs Number Of Stairs Into Home: 3 Number Of Stairs To Bed/Bath: 19 Stairs to Bed/Bath with: Unilateral Rail Laundry: spouse completes Equipment Owned: Cane PRIOR FUNCTIONAL LEVEL Within Functional Limits, Required Assistance, Poor Historian Assistance Required With: Transportation, Shopping, Medication Management, Laundry, Cleaning Patient is a poor historian and unable to provide meaningful PLOF comments today. Per spouse, pt is typically independent with ADLs, does not use a device for mobility. Drives to familiar places (work, stores nearby) but provides transportation if driving to a new location. Spouse provides IADLs, manages pt's medication. Pt has had decline in memory the past several years prior to being diagosed with dementia, sometimes feels forgetful but typically oriented X2-3 SUBJECTIVE delayed responses, needed cues repeated; limited verbalizations THERAPY DIAGNOSIS Reduced mobility-other, Muscle Weakness (generalized), Unsteadiness on feet, General symptoms and signs-other TREATMENT INTERVENTIONS Therapeutic Activity (91554) Timed Code Treatment (minutes): 25 Therapeutic Activity (41881) Treatment Minutes: 25 $ Therapeutic Activity (50902) Billed Units: 2 units Supine AAROM exercises: heel slide, hip abd/add and SLR--cues for proper alignment and technique Verbal/tactile/visual cues for safe mobility--needed assist to initiate all movement Needed wheeled walker guided along around with ambulation including negotiating obstacles and turning around--needed assist to steady patient and assist him with turning Seated at edge of bed for several min before standing and ambulating with close SBA TRAINING AND EDUCATION PROVIDED Bed Mobility, Benefits of In-Hospital Mobility, Discharge Planning, Exercise Program, Falls Prevention, Home Safety, Role of Physical Therapy, Transfers THERAPEUTIC SKILLS USED Activity Dosing, Assessment of Tolerance Including Vitals Response to Activity, Cues for Sequencing/Proper Technique for Activity, Physical Assist, Movement Facilitation FUNCTIONAL STATUS mobility performed during session in bold, other mobility completed during prior session(s) and may no longer be correct or appropriate to complete. Bed Mobility Supine To Sit: Maximal Assistance, Additional Information (x2) cues to bring LEs off bed and use bed rails to assist in bed mobility--pt has difficulty initiating movement--tactile cues to bring LEs to EOB and needed max Ax2 to bring trunk into upright Sit to Supine: Maximal Assistance, Additional Information cues to bring shlds down and needed assist to bring LEs into bed--needed max Ax2 Scooting: Minimal Assistance, Additional Information Transfers Sit To Stand: Moderate Assistance, Additional Information cues for hand placement and safety Stand To Sit: Moderate Assistance, Additional Information cues for hand placement and safety--needed assisted to sit down Bed to Chair Gait Moderate Assistance, Additional Information needed walker guided forward and manuevered and then min A to steady patient Gait Device: Wheeled Walker General Deviations/Observations: Veena decreased, Flexed trunk posture, Step length decreased, Shuffling Gait Gait Distance (feet): 40'x2 Stairs GOALS Patient will demonstrate progress to optimize functional mobility, maximize activity tolerance and endurance to maximize function upon discharge. Able (more content not included)... Normal [facility] THERAPY NT HNO ID: [id number] Author: BONITA PEACE OTR/L Service: Occupational Therapy Author Type: Occupational Therapist Type: Therapy (PT/OT/Speech/Resp) Filed: 01/30/2025 15:06 Note Text: Occupational Therapy Treatment Summary SERVICE DATE: 01/30/2025 SERVICE TIME: 1356 to 1449 ROOM: [place] [address] OT 6 Clicks Score: 8 DISCHARGE RECOMMENDATIONS Acute Rehab Recommended Discharge Disposition Comments: Pt would benefit from intensive therapies at d/c to maximize functional return and address functional deficits s/p frontal IPH and R SDH. Pt will tolerate 3 hours of therapy per day, 5 days per week at time of discharge. Pt has very supportive family. Recommended Discharge Disposition Due to: Patient requires active, intensive rehabilitation by multiple therapy disciplines. Anticipate the patient will tolerate 3 hours of therapy per day., ADL impairment, Cognitive deficits new/worsened, Functional status decline, Requires multiple therapy disciplines, Coordination deficits, Motor planning deficits ASSESSMENT Response to Therapy Interventions: Cognitive Deficits, Needs Frequent Redirection or Reinstruction, Requires Additional Time to Complete Activities, Requires Encouragement to Complete Activities Patient with poor initiation throughout OT session this date requires OT initiating all tasks with extensive cues for follow through of tasks. Patient resistant to participation in ADL despite OT initiating. Patient demonstrates extensive difficulties initiating and completing stand to sit, declines sitting on toilet for ADL, requires extensive cues and time to sit edge of bed once returning to the bed. 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 Per spouse, pt is typically independent with ADLs, does not use a device for mobility. Drives to familiar places (work, stores nearby) but provides transportation if driving to a new location. Spouse provides IADLs, manages pt's medication. Pt has had decline in memory the past several years prior to being diagosed with dementia, sometimes feels forgetful but typically oriented X2-3 Baseline Cognition: Oriented to self, Oriented to place, Oriented to situation, Forgetful SUBJECTIVE Pt lethargic, agreeable to OT arousing pt. Pt with increased alertness once EOB COGNITION Communication Deficits: Delayed Response, Expressive Deficits, Receptive Deficits Orientation Deficits: Confused, Not oriented to Place, Not oriented to Time, Not oriented to Situation (does not provide name when asked) Responsiveness: Drowsy, Obtunded Follows Commands: 1-step Commands, With Repetition, Cueing Needed Cueing to Follow Commands: Maximum Attention Deficits: Distractible, Divided Memory Deficits: Recall of Recent Events, Short Term, Sales And Service Agent Executive Function Deficits: Safety Awareness, Motor Planning, Problem Solving, Insight to Deficits, Judgement, Sequencing [place] Scale: 5 - Confused, Inappropriate, Non-Agitated Response (01/30/25) THERAPY DIAGNOSIS Reduced mobility-other, Decreased activities of daily living (ADL), Muscle Weakness (generalized), Unsteadiness on feet, Lack of coordination-other, Signs and Symptoms Involving Cognitive Functions and Awareness TREATMENT INTERVENTIONS Self Alf Management (52616) Timed Code Treatment (minutes): 53 Skilled Treatment Time (minutes): 53 Self Alf Management (19767) Treatment Minutes: 53 $ Self Alf Management (82707) Billed Units: 4 units TRAINING AND EDUCATION PROVIDED Bed Mobility, Cognitive Skills, Command Following, Lower Extremity Dressing, Lower Extremity Bathing, Role of Occupational Therapy, Toileting , Transfer - Sit to Stand, Transfer - Toilet/Commode THERAPEUTIC SKILLS USED Activity Dosing, Assessment of Tolerance Including Vitals Response to Activity, Cues for Sequencing/Proper Technique for Activity, Cuing Tactile, Cuing Verbal, Cuing Visual, Family Training, Physical Assist, Therapeutic Use of Self, Movement Facilitation FUNCTIONAL STATUS mobility performed during session in bold, other mobility completed during prior session and may no longer be correct or appropriate to complete. Activities of Daily Living (more content not included)... Normal [facility] THERAPY NT HNO ID: [id number] Author: BONITA PEACE OTR/Jaswant Service: Occupational Therapy Author Type: Occupational Therapist Type: Therapy (PT/OT/Speech/Resp) Filed: 01/30/2025 11:18 Note Text: OCCUPATIONAL THERAPY MISSED VISIT SERVICE DATE: 01/30/2025 SERVICE TIME: 1118 ROOM: [id number] Patient not seen due to Patient Not Available (pt asleep, family asked OT to return later). SIGNATURE: ANITHA Parker PATIENT NAME: Gaston Lainez DATE: January 30, 2025 TIME: 11:18 AM Normal [facility] 25(OH)D3 SerPl-mCncon 2024 25-hydroxyvitamin D3 [Mass/Vol] 31.9 ng/mL Normal >=30.0 [facility] Comment on above: Order Comment: Speci men Type: BLOOD SPECIMENOrdering Facility: [facility] Address: [address] [place] [address] Result Comment: Clas sification of 25 OH Vitamin D status: Deficiency: <= 20.0 ng/ml. Insufficiency: 21.0-29.0 ng/ml. Sufficiency: >= 30.0 ng/ml. Performed By: #### 1 [id number] ####[facility] LABORATORYCLIA [id number] [place] [address] [facility] ECG COMPLETEon 01-29-2025 ECG COMPLETE Ventricular Rate : 7 0 BPM Atrial Rate : 70 BPM P-R Interval : 156 ms QRS Duration : 70 ms Q-T Interval : 382 ms QTC Calculation(Bazett) : 412 ms Calculated P [place] : 15 degrees Calculated R [place] : 20 degrees Calculated T [place] : 11 degrees NORMAL SINUS RHYTHM SEPTAL INFARCT possible ABNORMAL ECG NO PREVIOUS ECGS AVAILABLE Confirmed by MD LIN DAVID ([id number]) on 01/30/2025 8:38:12 AM NAME : GASTON LAINEZ PID : [id number] : 1950 Gender : Male Race : ORD : [id number] Procedure Date : Jan 29 2025 17:03:52 Edit Date : Jan 30 2025 08:38:16 Diagnosis: NORMAL SINUS RHYTHM SEPTAL INFARCT possible ABNORMAL ECG NO PREVIOUS ECGS AVAILABLE Confirmed by MD LIN DAVID ([id number]) on 01/30/2025 8:38:12 AM Test Reason : Check QT Location : 200 : [place] [address] Overread By : MD LIN DAVID Edited By : MD LIN DAVID Referred By : , Acquired by : ENRIQUE BLUE Normal [facility] THERAPY NTon 01-29-2025 THERAPY NT HNO ID: [id number] Author: KENN CASSIDY CCC-DRAFTER GEOPHYSICAL Service: Speech/Swallow Author Type: Speech Language Pathologist Type: Therapy (PT/OT/Speech/Resp) Filed: 01/29/2025 12:26 Note Text: Speech Therapy Speech Evaluation SERVICE DATE: 01/29/2025 SERVICE TIME: 1125 to 1140 ROOM: [place] [address] IMPRESSION Communication deficits identified: Cognitive-Linguistic deficits RECOMMENDATIONS Nursing Recommendations Promote insight/safety opportunities Response to Therapy Interventions: Confusion interferes with education, Good participation in activities, Receptive family/caregivers Rehabilitation Precautions: Cognitive Linguistics Deficits, Communication Deficits DISCHARGE RECOMMENDATIONS Recommended Discharge Disposition: Acute Rehab Justification for Recommended Discharge Disposition: Patient requires an intensive inpatient rehabilitation therapy program due to:, complexity requiring a multi-disciplinary team approach, expressive language/communication deficits, receptive language/communication deficits, new/worsened cognitive deficits related to current diagnosis, requires active, intensive and ongoing intervention of multiple therapy disciplines CURRENT HOSPITAL COURSE Transfer from [place] s/ fall 8 days prior to admit. 01/25 CT Brain: acute intraparenchymal hemorrhage in left superior frontal gyrus Reason for Speech Therapy Consult: TBI Relevant Past Medical History: dementia, COPD, GERD HOME ENVIRONMENT / PRIOR FUNCTIONAL LEVEL Prior Functional Level: Required Assistance Patient Lives With: Spouse Assistance Available: PRN Prior Swallowing Function/Diet Textures: Regular Consistency, Thin Liquids IDDSI Level 0 SUBJECTIVE Alert, up in chair and agreeable to evaluation THERAPY DIAGNOSIS Cognitive deficits following cerebral infarction, Aphasia following cerebral infarction TREATMENT INTERVENTIONS Speech Language Eval (10249) Skilled Treatment Time (minutes): 15 $ Speech Language Eval (86085) Billed Units: 1 unit TRAINING AND EDUCATION PROVIDED IN Cognitive Linguistic Strategies THERAPEUTIC SKILLS USED Discharge planning, Education on role of discipline / importance of activity, Family / caregiver counseling / training, Verbal cuing OBJECTIVE Current Status Oral Hygiene: Clear, dry oral cavity Dentition: Retains Natural Dentition Current Feeding Method: Oral Current Diet Textures: Regular Consistency, Thin Liquids IDDSI Level 0 Current Level Of Communication: Verbal Current Management Of Secretions: Able to self-manage Oral Motor Exam: Within Functional Limits COGNITION Cognitive Status: far below his baseline per Orientation Deficits: Place, Time, Situation, Confused Attention Deficit: Sustained Memory Deficits: Immediate, Short Term Executive Function Deficits: Problem Solving, Safety Awareness The Orientation Log (O-Log) is designed to be a quick quantitative measure of orientation status for use at the bedside with rehabilitation inpatients. Place, time, and situational (Etiology/Event + Pathology/Deficits) domains are assessed. Patient responses are scored according to the following criteria: 3 = correct spontaneously or upon first free recall attempt 2 = correct upon logical cueing (e.g., That was yesterday, so today must be...) 1 = correct upon multiple choice or phonemic cueing 0 = incorrect despite cueing, inappropriate response, or unable to respond Stimulus Response/Score City 0/[address] 0/ Name of Hospital 0 Month 1 Date 08/31 Year 0 Day of Week 10/01 Clock Time Etiology/Event 0 Pathology/Deficits Total 12/26 SPEECH/VOICE/LANGUAGE Speech Production: Within Functional Limits Expressive and Receptive Language: Auditory Comprehension Deficits: 1-Step Commands - (%): 40 Simple Yes/No Questions - (%): 40 Verbal Expression Deficits: Expressing Basic Needs/Wants Expressing Basic Needs/Wants - (%): 40 GOALS SPEECH / LANGUAGE: Patient will demonstrate knowledge of taught compensatory strategies for functional communication Language Goals: Patient will increase word finding skills at word level to 80% accuracy given minimal cues so that the patient may express basic ADL medical and social wants/needs. Patient will answer simple questions and follow simple commands with 80% accuracy given minimal cues to effectively respond to caregivers inquiry pertaining to immediate medical/ADL care. COGNITION: Patient will demonstrate knowledge of taught compensatory strategies for functional cognitive-linguistic skills Cognitive Goals: Patient will demonstrate orientation to place, time, situation to 80% accuracy given moderate cues so that the patient can more actively engage in own personal care and recovery. Speech Rehab Potential: Fair Fair Rehab Potential Due To: Memory deficits Patient /Caregiver Goals: Improve Cognition, Improve Communication ACUTE CARE TREATMENT PLAN ST (more content not included)... Normal [facility] CONSULTon 01-28-2025 CONSULT HNO ID: [id number] Author: RONIT HERNÁNDEZ APRN.KITCHEN MECHANIC Service: Geriatrics Author Type: Nurse Specialist Type: Consults Filed: 01/28/2025 13:01 Note Text: GERIATRIC MEDICINE CONSULT NOTE SERVICE DATE: 01/28/2025 SERVICE TIME: 1155 am [id number] REASON FOR CONSULT: 74 yo TBI and dementia REQUESTING PROVIDER: Arnold CONNOR HISTORY OF PRESENT ILLNESS: Gaston Lainez is a 74 year old male with a past medical history of dementia, anxiety, depression, bipolar with psychotic episodes, hx TBI, OCD, insomnia who was admitted on 01/25/25 [facility] as transfer for fall out of bed Tuesday (had stitches in [place]), now with R small SDH and stable subacute IPH. Patient was brought to [facility] for evaluation. Imaging revealed: Acute intraparenchymal hemorrhage is present within the left superior frontal gyrus measuring up to 2.3 cm in diameter with surrounding edema and minimal local mass effect. Thin subdural hematomas present along the right cerebral convexity measuring up to 4 mm in greatest thickness with no substantial mass effect or midline shift. CT cervical spine shows no evidence of fracture or destructive process. There is multilevel cervical spondylosis with mainly foraminal stenosis as described in the body of the report. Chest x-ray and pelvis x-ray are negative for any acute osseous abnormalities. Neurosurgery was consulted, recommended mobilize, avoid narcotic and they have signed off since imaging is stable. Patient was admitted under Trauma to [facility]. Determined to be HIGH RISK for delirium with DEAR assessment. POSITIVE BCAM noted. Patient is not currently awake, did not even wake for breathing treatment. Blinds open. Has a bedside sitter. Pt was reported to have been awake all night. He was able to get himself out of bed and glove printer the corner of the room for 5 hours last night. A nurse was able to get him into bed this morning. He is now sleeping. He is tolerating meals. Information was obtained from , Marilynn at bedside. Patient is AANDO X2-3 at baseline, does have some problems with memory at times but is able to care for himself, drive, go to work but not do anything there. Sensory impairment- none Lives at home w . Safety concerns- no Independent in B-ADLs Somewhat independent in I-ADLs- does finances, cooking, housekeeping, meds, shopping. Pt can do his phone, driving Falls- yes Ambulation device- none Hospitalizations- none recent No other ED visits or hospital admissions within the last 6 months. Denies dysphagia, odynophagia, weight loss, decreased appetite, feelings of depression or anxiety, or difficulty with sleep. History of alcohol and TCH. Pt drinks a couple glasses of wine every afternoon Subjective DNR/CODE STATUS: agrees patient would not want CPR or vent given his dementia. DNR CCA DNI Advance Directives: Living Will? No but interested HCPOA? No but looking into it Surrogate Decision Maker? Spouse Marilynn PCP: Mehdi HICKMAN, was last seen 01/24/25. Past Medical History: PAST MEDICAL HISTORY Diagnosis Date Abnormal stress echocardiogram 01/14/2021 01/21/[address] Barragan: right dominant. LMT min luminal, LAD mild diffuse, LCx mild luminal with large caliber nondominant vessel extending into a single large obtuse marginal branch, proximal vessel is mildly calcified +mild luminal irreg, RCA 40% Large-caliber dominant vessel: moderate calcification from the proximal to mid vessel, mild diffuse ectatic disease proximal.The ostium of the Anxiety state, unspecified 10/24/2007 Benign paroxysmal positional vertigo one remote episode Bunion Chronic obstructive asthma, unspecified 10/24/2007 Depression likely bipolar disorder Depressive disorder, not elsewhere classified 10/24/2007 Generalized anxiety disorder 10/24/2007 History of marijuana use 03/02/2016 Quit 08/2015 Hypermobility syndrome Mild coronary artery disease Mixed hyperlipidemia 11/27/2008 Nontraumatic rupture of tendons of biceps (long head) R, 10/07 L OCD (obsessive compulsive disorder) Pneumonia, organism unspecified(486) 11/2001 bilateral: cleared Primary insomnia 03/02/2016 Senile dementia (HCC) 2022 Past Surgical History: PAST SURGICAL HISTORY Procedure Laterality Date COLONOSCOPY FLX DX W/COLLJ SPEC WHEN PFRMD 09/21/2006 repeat due 2017 COLONOSCOPY FLX DX W/COLLJ SPEC WHEN PFRMD 04/22/2020 Colonoscopy COLSC FLX W/RMVL OF TUMOR POLYP LESION SNARE TQ 04/19/2017 2 adenomatous polyps - ESOPHAGOGASTRODUODENOSCOPY TRANSORAL DIAGNOSTIC 07/23/2019 EGD EXCISION OF BENIGN LESION GREATER THAN 1.25 CM 03/29/2000 tongue and lip lesions: fibroma; nose: sebaceous hyperplasia PAST SURGICAL HISTORY OF repair flexor tendon left thumb PAST SURGICAL HISTORY OF Left 09/03/2019 [facility]: left CTR and tenosynovectomy at wrist level PAST SURGICAL HISTORY OF Left 04/29/2021 Left me (more content not included)... Normal [facility] THERAPY NTon 01-28-2025 THERAPY NT HNO ID: [id number] Author: KEIRA WEINSTEIN, XI Service: Physical Therapy Author Type: Sales Advisor Type: Therapy (PT/OT/Speech/Resp) Filed: 01/28/2025 15:55 Note Text: Attestation signed by Keira Weinstein PT at 01/28/2025 3:55 PM I reviewed and agree with the documentation corresponding to this therapy visit. SIGNATURE: Keira Weinstein PT DATE: January 28, 2025 TIME: 3:55 PM Physical Therapy Treatment Summary SERVICE DATE: 01/28/2025 SERVICE TIME: 1453 to 1516 ROOM: [id number] PT 6 Clicks Score: 11 DISCHARGE RECOMMENDATIONS Acute Rehab Recommended Discharge Disposition Comments: Patient functioning well below baseline, demonstrating significant deficits in cognition as well as strength and coordination. Recommend Acute Rehab to address listed deficits, anticipate will tolerate 3 hours of combined therapies daily Recommended Discharge Disposition Due to: Patient requires active, intensive rehabilitation by multiple therapy disciplines. Anticipate the patient will tolerate 3 hours of therapy per day., Functional deficits requiring ongoing therapy service prior to discharge home., Balance deficits, Coordination deficits ASSESSMENT Response to Therapy Interventions: Cognitive Deficits, Good Participation in Activities Patient continues to require increased levels of assistance with all mobility tasks. Patient able to walk with walker in hallway at moderate assist. Patient continues to require increased levels of assistance with all mobility tasks. continue to recommend acute care to improve strength, ROM, balance,endurance, normalized gait pattern, and independence with mobility tasks to prior level of function for safe return to home activity. 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 Per spouse, pt is typically independent with ADLs, does not use a device for mobility. Drives to familiar places (work, stores nearby) but provides transportation if driving to a new location. Spouse provides IADLs, manages pt's medication. Pt has had decline in memory the past several years prior to being diagosed with dementia, sometimes feels forgetful but typically oriented X2-3 SUBJECTIVE Patient confused, delayed response, increased cuing required THERAPY DIAGNOSIS Reduced mobility-other, Muscle Weakness (generalized), Unsteadiness on feet, General symptoms and signs-other TREATMENT INTERVENTIONS Therapeutic Activity (24665) Therapeutic Activity (62302) Treatment Minutes: 23 $ Therapeutic Activity (25209) Billed Units: 2 units Patient completed BLE AAROM (ankle pump, heel slide, hip IR/ER, hip ABD/ADD, long arc quad, hip adductor squeeze, seated hip march) x 12 reps with varied amount of assist. Cuing/assist for proper movements/techniques with bed mobility, scooting, transfers, and short distance gait training in hallway. Positioned for comfort at end of session. All needs in reach, bed alarm on, family and sitter present. Timed Code Treatment (minutes): 23 Skilled Treatment Time (minutes): 23 TRAINING AND EDUCATION PROVIDED Assistive Device Use, Bed Mobility, Exercise Program, Gait Pattern, Reduction of Deviations, Transfers, Positioning THERAPEUTIC SKILLS USED Cues for Sequencing/Proper Technique for Activity, Cuing Tactile, Cuing Verbal, Cuing Visual, Facilitation of Joint Range of Motion, Movement Facilitation, Physical Assist, Postural Alignment Correction FUNCTIONAL STATUS mobility performed during session in bold, other mobility completed during prior session and may no longer be correct or appropriate to complete. Bed Mobility Supine To Sit: Moderate Assistance cuing/assist with trunk/LEs Sit to Supine: Moderate Assistance via reverse log roll--assist with trunk/LEs Scooting: Minimal Assistance, Additional Information Transfers Sit To Stand: Moderate Assistance, Additional Information assist to place hands on walker, cuing/assist to lean forward--simple cue to stand up, assist (more content not included)... Normal [facility] THERAPY NT HNO ID: [id number] Author: CINDY FRANCO CCC-DRAFTER GEOPH[employer]ICAL Service: Speech/Swallow Author Type: Speech Language Pathologist Type: Therapy (PT/OT/Speech/Resp) Filed: 01/28/2025 10:39 Note Text: SPEECH THERAPY MISSED VISIT SERVICE DATE: 01/28/2025 SERVICE TIME: 1030 ROOM: [place] [address] Patient not seen due to Clinical Appropriateness. Too lethargic to participate at this time. Will re-attempt at later date/time as able. SIGNATURE: Cindy Franco CCC-DRAFTER GEOPHYSICAL PATIENT NAME: Gaston Lainez DATE: January 28, 2025 TIME: 10:39 AM Normal [facility] Basic metabolic 2000 panelon 01-27-2025 Anion gap [Moles/Vol] 13 mmol/L Normal 8-15 [facility] Comment on above: Order Comment: Speci men Type: BLOOD SPECIMENOrdering Facility: [facility] Address: [address] [place] [address] Performed By: #### 2 4321-2 ####[facility] LABORATORYCLIA [id number] [place] [address] [place] Calcium [Mass/Vol] 9.0 mg/dL Normal 8.5-10.2 [facility] Comment on above: Order Comment: Speci men Type: BLOOD SPECIMENOrdering Facility: [facility] Address: [address] [place] [address] Performed By: #### 2 4321-2 ####[facility] LABORATORYCLIA [id number] [place] [address] [place] Chloride [Moles/Vol] 100 mmol/L Normal 98-107 [facility] Comment on above: Order Comment: Speci men Type: BLOOD SPECIMENOrdering Facility: [facility] Address: [address] [place] [address] Performed By: #### 2 4321-2 ####[facility] LABORATORYCLIA [id number] [address] STATES OF [facility] CO2 [Moles/Vol] 24 mmol/L Normal 22-30 [facility] Comment on above: Order Comment: Speci men Type: BLOOD SPECIMENOrdering Facility: [facility] Address: [address] [place] [address] Performed By: #### 2 4321-2 ####[facility]ITALCLIA [id number] [address] STATES [facility] Creatinine [Mass/Vol] 0.86 mg/dL Normal 0.73-1.22 [facility] Comment on above: Order Comment: Speci men Type: BLOOD SPECIMENOrdering Facility: [facility] Address: [address] [place] [address] Performed By: #### 2 4321-2 ####[facility] LABORATORYCLIA [id number] [address] Creatinine and Glomerular filtration rate.predicted panel (S/P/Bld) 90 mL/min/1.73m??? Normal >=60 [facility] Comment on above: Order Comment: Speci men Type: BLOOD SPECIMENOrdering Facility: [facility] Address: [address] [place] [address] Result Comment: Rashmi mated Glomerular Filtration Rate (eGFR) is calculated using the 2020 CKD-EPI creatinine equation. This equation utilizes serum creatinine, sex, and age as parameters. The creatinine assay has traceable calibration to isotope dilution-mass spectrometry. Refer to KDIGO guidelines for clinical interpretation. In patients with unstable renal function, e.g. those with acute kidney injury, the eGFR may not accurately reflect actual GFR. Performed By: #### 2 4321-2 ####[facility] LABORATORYCLIA [id number] [address] Glucose [Mass/Vol] 101 mg/dL High 74-99 [facility] Comment on above: Order Comment: Speci men Type: BLOOD SPECIMENOrdering Facility: [facility] Address: [address] [place] [address] Result Comment: The [place] Diabetes Association (ADA) provides guidance for cutoff values for fasting glucose and random glucose. The ADA defines fasting as no caloric intake for at least 8 hours. Fasting plasma glucose results between 100 to 125 mg/dL indicate increased risk for diabetes (prediabetes). Fasting plasma glucose results greater than or equal to 126 mg/dL meet the criteria for diagnosis of diabetes. In the absence of unequivocal hyperglycemia, results should be confirmed by repeat testing. In a patient with classic symptoms of hyperglycemia or hyperglycemic crisis, random plasma glucose results greater than or equal to 200 mg/dL meet the criteria for diagnosis of diabetes. Reference: Standards of Medical Care in Diabetes 2016, [place] Diabetes Association. Diabetes Care. 2016.39(Suppl 1). Performed By: #### 2 4321-2 ####[facility] LABORATORYCLIA [id number] [place] [address] [place] Potassium [Moles/Vol] 4.0 mmol/L Normal 3.7-5.1 [facility] Comment on above: Order Comment: Rosemariei men Type: BLOOD SPECIMENOrdering Facility: [facility] Address: [address] [place] [address] Performed By: #### 2 4321-2 ####[facility] LABORATORYCLIA [id number] [place] [address] [place] Sodium [Moles/Vol] 137 mmol/L Normal 136-144 [facility] Comment on above: Order Comment: Speci men Type: BLOOD SPECIMENOrdering Facility: [facility] Address: [address] [place] [address] Performed By: #### 2 4321-2 ####[facility] LABORATORYCLIA [id number] [place] [address] [place] Urea nitrogen [Mass/Vol] 15 mg/dL Normal 9-24 [facility] Comment on above: Order Comment: Speci men Type: BLOOD SPECIMENOrdering Facility: [facility] Address: [address] [place] [address] Performed By: #### 2 4321-2 ####[facility] LABORATORYCLIA [id number] [address] CBC panel Auto (Bld)on 01-27 Erythrocyte distribution width (RBC) [Ratio] 12.4 % Normal 11.5-15.0 [facility] Comment on above: Order Comment: Speci men Type: BLOOD SPECIMENOrdering Facility: [facility] Address: [address] [place] [address] Performed By: #### 5 8410-2 ####[facility] LABORATORYCLIA [id number] [address] Hematocrit (Bld) [Volume fraction] 40.6 % Normal 39.0-51.0 [facility] Comment on above: Order Comment: Speci men Type: BLOOD SPECIMENOrdering Facility: [facility] Address: [address] [place] [address] Performed By: #### 5 8410-2 ####[facility] LABORATORYCLIA [id number] [address] Hemoglobin (Bld) [Mass/Vol] 13.6 g/dL Normal 13.0-17.0 [facility] Comment on above: Order Comment: Speci men Type: BLOOD SPECIMENOrdering Facility: [facility] Address: [address] [place] [address] Performed By: #### 5 8410-2 ####[facility] LABORATORYCLIA [id number] [address] [place] MCH (RBC) [Entitic mass] 30.8 pg Normal 26.0-34.0 [facility] Comment on above: Order Comment: Speci men Type: BLOOD SPECIMENOrdering Facility: [facility] Address: [address] [place] [address] Performed By: #### 5 8410-2 ####[facility] LABORATORYCLIA [id number] [address] [place] MCHC (RBC) [Mass/Vol] 33.5 g/dL Normal 30.5-36.0 [facility] Comment on above: Order Comment: Speci men Type: BLOOD SPECIMENOrdering Facility: [facility] Address: [address] [place] [address] Performed By: #### 5 8410-2 ####[facility] LABORATORYCLIA [id number] [address] MCV (RBC) [Entitic vol] 92.1 fL Normal 80.0-100.0 [facility] Comment on above: Order Comment: Speci men Type: BLOOD SPECIMENOrdering Facility: [facility] Address: [address] [place] [address] Performed By: #### 5 8410-2 ####[facility] LABORATORYCLIA [id number] [address] STATES OF [facility] Nucleated RBC (Bld) [#/Vol] 10*3/uL Normal <0.01 [facility] Comment on above: Order Comment: Speci men Type: BLOOD SPECIMENOrdering Facility: [facility] Address: [address] [place] [address] Performed By: #### 5 8410-2 ####[facility] LABORATORYCLIA [id number] [address] [place] Platelet mean volume (Bld) [Entitic vol] 9.3 fL Normal 9.0-12.7 [facility] Comment on above: Order Comment: Speci men Type: BLOOD SPECIMENOrdering Facility: [facility] Address: [address] [place] [address] Performed By: #### 5 8410-2 ####[facility]ORATORYCLIA [id number] [address] [place] Platelets (Bld) [#/Vol] 280 10*3/uL Normal 150-400 [facility] Comment on above: Order Comment: Speci men Type: BLOOD SPECIMENOrdering Facility: [facility] Address: [address] [place] [address] Performed By: #### 5 8410-2 ####[facility] LABORATORYCLIA [id number] [place] [address] [place] RBC (Bld) [#/Vol] 4.41 10*6/uL Normal 4.20-6.00 [facility] Comment on above: Order Comment: Speci men Type: BLOOD SPECIMENOrdering Facility: [facility] Address: [address] [place] [address] Performed By: #### 5 8410-2 ####[facility] LABORATORYCLIA [id number] [address] STATES OF [facility] WBC (Bld) [#/Vol] 7.56 10*3/uL Normal 3.70-11.00 [facility] Comment on above: Order Comment: Speci men Type: BLOOD SPECIMENOrdering Facility: [facility] Address: [address] [place] [address] Performed By: #### 5 8410-2 ####[facility] LABORATORYCLIA [id number] [address] OF [facility] Basic metabolic 2000 panelon 01-26-2025 Anion gap [Moles/Vol] 11 mmol/L Normal 8-15 [facility] Comment on above: Order Comment: Speci men Type: BLOOD SPECIMENOrdering Facility: [facility] Address: [address] [place] [address] Performed By: #### 2 4321-2 ####[facility]ORATORYCLIA [id number] [place] [address] [place] Calcium [Mass/Vol] 8.6 mg/dL Normal 8.5-10.2 [facility] Comment on above: Order Comment: Speci men Type: BLOOD SPECIMENOrdering Facility: [facility] Address: [address] [place] [address] Performed By: #### 2 4321-2 ####[facility]ORATORYCLIA [id number] [address] [place] Chloride [Moles/Vol] 102 mmol/L Normal 98-107 [facility] Comment on above: Order Comment: Speci men Type: BLOOD SPECIMENOrdering Facility: [facility] Address: [address] [place] [address] Performed By: #### 2 4321-2 ####[facility]ORATORYCLIA [id number] [address] [place] CO2 [Moles/Vol] 24 mmol/L Normal 22-30 [facility] Comment on above: Order Comment: Speci men Type: BLOOD SPECIMENOrdering Facility: [facility] Address: [address] [place] [address] Performed By: #### 2 4321-2 ####[facility]ORATORYCLIA [id number] [address] STATES OF [facility] Creatinine [Mass/Vol] 0.79 mg/dL Normal 0.73-1.22 [facility] Comment on above: Order Comment: Speci men Type: BLOOD SPECIMENOrdering Facility: [facility] Address: [address] [place] [address] Performed By: #### 2 4321-2 ####[facility]ORATORYCLIA [id number] [address] Creatinine and Glomerular filtration rate.predicted panel (S/P/Bld) 93 mL/min/1.73m??? Normal >=60 [facility] Comment on above: Order Comment: Speci men Type: BLOOD SPECIMENOrdering Facility: [facility] Address: [address] [place] [address] Result Comment: Rashmi mated Glomerular Filtration Rate (eGFR) is calculated using the 2020 CKD-EPI creatinine equation. This equation utilizes serum creatinine, sex, and age as parameters. The creatinine assay has traceable calibration to isotope dilution-mass spectrometry. Refer to KDIGO guidelines for clinical interpretation. In patients with unstable renal function, e.g. those with acute kidney injury, the eGFR may not accurately reflect actual GFR. Performed By: #### 2 4321-2 ####[facility]ORATORYCLIA [id number] [address] [place] Glucose [Mass/Vol] 98 mg/dL Normal 74-99 [facility] Comment on above: Order Comment: Speci men Type: BLOOD SPECIMENOrdering Facility: [facility] Address: [address] [place] [address] Result Comment: The [place] Diabetes Association (ADA) provides guidance for cutoff values for fasting glucose and random glucose. The ADA defines fasting as no caloric intake for at least 8 hours. Fasting plasma glucose results between 100 to 125 mg/dL indicate increased risk for diabetes (prediabetes). Fasting plasma glucose results greater than or equal to 126 mg/dL meet the criteria for diagnosis of diabetes. In the absence of unequivocal hyperglycemia, results should be confirmed by repeat testing. In a patient with classic symptoms of hyperglycemia or hyperglycemic crisis, random plasma glucose results greater than or equal to 200 mg/dL meet the criteria for diagnosis of diabetes. Reference: Standards of Medical Care in Diabetes 2016, [place] Diabetes Association. Diabetes Care. 2016.39(Suppl 1). Performed By: #### 2 4321-2 ####[facility]ORATORYCLIA [id number] [place] [address] [place] Potassium [Moles/Vol] 3.8 mmol/L Normal 3.7-5.1 [facility] Comment on above: Order Comment: Speci men Type: BLOOD SPECIMENOrdering Facility: [facility] Address: [address] [place] [address] Performed By: #### 2 4321-2 ####[facility] LABORATORYCLIA [id number] [place] [address] [place] Sodium [Moles/Vol] 137 mmol/L Normal 136-144 [facility] Comment on above: Order Comment: Speci men Type: BLOOD SPECIMENOrdering Facility: [facility] Address: [address] [place] [address] Performed By: #### 2 4321-2 ####[facility]ORATORYCLIA [id number] [place] [address] [place] Urea nitrogen [Mass/Vol] 11 mg/dL Normal 9-24 [facility] Comment on above: Order Comment: Speci men Type: BLOOD SPECIMENOrdering Facility: [facility] Address: [address] [place] [address] Performed By: #### 2 4321-2 ####[facility]ORATORYCLIA [id number] [address] STATES [facility] CBC panel Auto (Bld)on 01-26 Erythrocyte distribution width (RBC) [Ratio] 12.5 % Normal 11.5-15.0 [facility] Comment on above: Order Comment: Speci men Type: BLOOD SPECIMENOrdering Facility: [facility] Address: [address] [place] [address] Performed By: #### 5 8410-2 ####[facility]ORATORYCLIA [id number] [address] Hematocrit (Bld) [Volume fraction] 37.3 % Low 39.0-51.0 [facility] Comment on above: Order Comment: Speci men Type: BLOOD SPECIMENOrdering Facility: [facility] Address: [address] [place] [address] Performed By: #### 5 8410-2 ####[facility]ORATORYCLIA [id number] [address] Hemoglobin (Bld) [Mass/Vol] 12.4 g/dL Low 13.0-17.0 [facility] Comment on above: Order Comment: Speci men Type: BLOOD SPECIMENOrdering Facility: [facility] Address: [address] [place] [address] Performed By: #### 5 8410-2 ####[facility] LABORATORYCLIA [id number] [address] STATES [facility] MCH (RBC) [Entitic mass] 30.5 pg Normal 26.0-34.0 [facility] Comment on above: Order Comment: Speci men Type: BLOOD SPECIMENOrdering Facility: [facility] Address: [address] [place] [address] Performed By: #### 5 8410-2 ####[facility] LABORATORYCLIA [id number] [address] STATES [place] MCHC (RBC) [Mass/Vol] 33.2 g/dL Normal 30.5-36.0 [facility] Comment on above: Order Comment: Speci men Type: BLOOD SPECIMENOrdering Facility: [facility] Address: [address] [place] [address] Performed By: #### 5 8410-2 ####[facility] LABORATORYCLIA [id number] [address] STATES OF [facility] MCV (RBC) [Entitic vol] 91.6 fL Normal 80.0-100.0 [facility] Comment on above: Order Comment: Speci men Type: BLOOD SPECIMENOrdering Facility: [facility] Address: [address] [place] [address] Performed By: #### 5 8410-2 ####[facility] LABORATORYCLIA [id number] [address] OF [place] Nucleated RBC (Bld) [#/Vol] 10*3/uL Normal <0.01 [facility] Comment on above: Order Comment: Speci men Type: BLOOD SPECIMENOrdering Facility: [facility] Address: [address] [place] [address] Performed By: #### 5 8410-2 ####[facility] LABORATORYCLIA [id number] [address] [place] Platelet mean volume (Bld) [Entitic vol] 9.1 fL Normal 9.0-12.7 [facility] Comment on above: Order Comment: Speci men Type: BLOOD SPECIMENOrdering Facility: [facility] Address: [address] [place] [address] Performed By: #### 5 8410-2 ####[facility] LABORATORYCLIA [id number] [address] STATES [place] Platelets (Bld) [#/Vol] 238 10*3/uL Normal 150-400 [facility] Comment on above: Order Comment: Speci men Type: BLOOD SPECIMENOrdering Facility: [facility] Address: [address] [place] [address] Performed By: #### 5 8410-2 ####[facility] LABORATORYCLIA [id number] [place], [place] [id number] [place] [address] STATES OF ST[place] RBC (Bld) [#/Vol] 4.07 10*6/uL Low 4.20-6.00 [facility] Comment on above: Order Comment: Speci leonor Type: BLOOD SPECIMENOrdering Facility: [facility] Address: [address] [place] [address] Performed By: #### 5 8410-2 ####[facility] LABORATORYCLIA [id number] [address] STATES [place] WBC (Bld) [#/Vol] 6.53 10*3/uL Normal 3.70-11.00 [facility] Comment on above: Order Comment: Speci men Type: BLOOD SPECIMENOrdering Facility: [facility] Address: [address] [place] [address] Performed By: #### 5 8410-2 ####[facility] LABORATORYCLIA [id number] [address] THERAPY NTon 01-26-2025 THERAPY NT HNO ID: [id number] Author: JOSE MANUEL LEWIS, OTR/L Service: Occupational Therapy Author Type: Occupational Therapist Type: Therapy (PT/OT/Speech/Resp) Filed: 01/26/2025 13:45 Note Text: Occupational Therapy Evaluation Summary SERVICE DATE: 01/26/2025 SERVICE TIME: 1127 to 1157 ROOM: [place] [address] OT 6 Clicks Score: 10 DISCHARGE RECOMMENDATIONS Acute Rehab Recommended Discharge Disposition Comments: Pt would benefit from intensive therapies at d/c to maximize functional return and address functional deficits s/p frontal IPH and R SDH. Pt will tolerate 3 hours of therapy per day, 5 days per week at time of discharge. Pt has very supportive family. Recommended Discharge Disposition Due to: Patient requires active, intensive rehabilitation by multiple therapy disciplines. Anticipate the patient will tolerate 3 hours of therapy per day., ADL impairment, Cognitive deficits new/worsened, Functional status decline, Requires multiple therapy disciplines, Coordination deficits, Motor planning deficits ASSESSMENT Response to Therapy Interventions: Cognitive Deficits, Low Activity Tolerance, Needs Frequent Redirection or Reinstruction Pt functioning well below prior baseline now s/p fall and L frontal IPH and R SDH. Pt typically able to complete ADLs, walk without a device, and drive short distances. Pt presents today with impaired cognition and motor planning, now requires max-total assist to sequence ADLs and max A for bed mobility d/t weakness. Pt had positive 4AT delirium screen today, and required significant tactile and 1 step verbal commands to support task initiation and sequencing activities. 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 Per spouse, pt is typically independent with ADLs, does not use a device for mobility. Drives to familiar places (work, stores nearby) but provides transportation if driving to a new location. Spouse provides IADLs, manages pt's medication. Pt has had decline in memory the past several years prior to being diagosed with dementia, sometimes feels forgetful but typically oriented X2-3 Baseline Cognition: Oriented to self, Oriented to place, Oriented to situation, Forgetful SUBJECTIVE Pt initially drowsy, more alert once sitting EOB. Pt awake, intermittently interactive with therapist through session. Had difficulty answering orientation questions, told me his name was Enmanuel but was not able to state his own name. Pt's spouse present, stated he has not been acting like himself since his initial fall 10 days ago. COGNITION Communication Deficits: Delayed Response, Expressive Deficits, Receptive Deficits Orientation Deficits: Confused, Not oriented to Person, Not oriented to Place, Not oriented to Time, Not oriented to Situation (Smiled and said his name was Enmanuel but was unable to tell me his name.) Responsiveness: Awake, Drowsy, Lethargic, Obtunded Follows Commands: 1-step Commands, With Increased Time, With Repetition, Cueing Needed Cueing to Follow Commands: Maximum Attention Deficits: Distractible, Divided Memory Deficits: Recall of Recent Events, Short Term, Fpc Executive Function Deficits: Safety Awareness, Motor Planning, Problem Solving, Insight to Deficits, Judgement, Sequencing 4AT Score: (!) 12 (01/26/25) Name of LIP Notified of New Positive 4AT Score: delirium procotol in place (01/26/25) Delirium Positive/Negative: Positive (01/26/25) THERAPY DIAGNOSIS Reduced mobility-other, Decreased activities of daily living (ADL), Muscle Weakness (generalized), Unsteadiness on feet, Lack of coordination-other, Signs and Symptoms Involving Cognitive Functions and Awareness TREATMENT INTERVENTIONS Evaluation, Self Alf Management (31993) Timed Code Treatment (minutes): 15 Skilled Treatment Time (minutes): 30 $ Evaluation - Moderate (68647) Billed Units: 1 unit Self Alf Management (76180) Treatment Minutes: 15 $ Self Alf Management (93116) Billed Units: 1 unit TRAINING AND EDUCATION PROVIDED Activity Adaptation/Compensatory Strategies, Adapti (more content not included)... Normal [facility] THERAPY NT HNO ID: [id number] Author: RADHA MCKEON PT Service: Physical Therapy Author Type: Physical Therapist Type: Therapy (PT/OT/Speech/Resp) Filed: 01/26/2025 11:37 Note Text: Physical Therapy Evaluation Summary SERVICE DATE: 01/26/2025 SERVICE TIME: 0957 to 1013 ROOM: [place] [address] PT 6 Clicks Score: 12 DISCHARGE RECOMMENDATIONS Acute Rehab Recommended Discharge Disposition Comments: Patient functioning well below baseline, demonstrating significant deficits in cognition as well as strength and coordination. Recommend Acute Rehab to address listed deficits, anticipate will tolerate 3 hours of combined therapies daily Recommended Discharge Disposition Due to: Patient requires active, intensive rehabilitation by multiple therapy disciplines. Anticipate the patient will tolerate 3 hours of therapy per day., Functional deficits requiring ongoing therapy service prior to discharge home., Balance deficits, Coordination deficits ASSESSMENT Response to Therapy Interventions: Cognitive Deficits, Multiple Ongoing Medical Issues, Needs Frequent Redirection or Reinstruction, Requires Additional Time to Complete Activities Patient demonstrating significantly delayed processing, requiring frequent and repeated cues throughout session. Patient oriented to self with cuing, however unable to state time and location with prompting. Patient requires mod assist with mobility and max cues throughout to complete tasks. Per spouse, patient is well below baseline. PRECAUTIONS Fall Risk, Bed/Chair Alarm CURRENT HOSPITAL COURSE 74 y.o male admitted for worsening mentation after fall ~9 days ago, CT revealed subacute L frontal IPH and R SDH, neuro following Relevant Past Medical History: dementia, COPD, anxiety, HLD HOME LIVING Patient Lives With: Spouse Assistance Available: 24-Hour Entry To Home: Stairs Number Of Stairs Into Home: 3 Equipment Owned: (none) PRIOR FUNCTIONAL LEVEL Within Functional Limits Patient is a poor historian, reports independence with mobility, lives with spouse who assists with IADLs, drives SUBJECTIVE Patient confused, delayed response, increased cuing required THERAPY DIAGNOSIS Reduced mobility-other, Muscle Weakness (generalized), Unsteadiness on feet, General symptoms and signs-other TREATMENT INTERVENTIONS Evaluation $ Evaluation-Moderate (55616) Billed Units: 1 unit Skilled Treatment Time (minutes): 16 TRAINING AND EDUCATION PROVIDED Assistive Device Use, Bed Mobility, Benefits of In-Hospital Mobility, Falls Prevention, Expected Functional Level, Gait Pattern, Reduction of Deviations, Role of Physical Therapy, Sitting Balance, Standing Balance, Transfers THERAPEUTIC SKILLS USED Cuing Verbal, Cues for Sequencing/Proper Technique for Activity, Cuing Tactile, Movement Facilitation, Postural Alignment Correction, Physical Assist FUNCTIONAL STATUS Bed Mobility Supine To Sit: Moderate Assistance, Additional Information max cues with 1 step sequencing, increased processing with assist at LE and trunk to achieve sitting Sit to Supine: Moderate Assistance, Additional Information max verbal cues for sequencing with assist to control descent of trunk and guide LE into bed Scooting: Minimal Assistance, Additional Information cues for weight shifting, assist with draw sheet Transfers Sit To Stand: Moderate Assistance, Additional Information max cues for hand placement, power through LE, tuck bottom to stand tall, increased retropulsion with assist to correct Stand To Sit: Moderate Assistance, Additional Information max cues and assist to turn with walker to align hips to edge of bed, cues for hand placement with assist to control descent of trunk Bed to Chair Gait Moderate Assistance, Additional Information patient with increased retropulsion, very unsteady with loss of balance when attempting to advance steps without a device, implemented walker, required constant cuing for walker proximity, visual scanning and step sequencing, mod hands on assist at all times for balance and to safely navigate walker in room Gait Device: Wheeled Walker General Deviations/Observations: Veena decreased, Difficulty changing direction/turning, Flexed trunk posture, Lateral sway increased, Loss of Balance, Non-functional gait speed, Shuffling Gait, Step length decreased, Visual scanning/environmental awareness decreased Gait Distance (feet): 25' x 2 Stairs RANGE OF MOTION WFL STRENGTH Strength Limitation Comments: BLE grossly 4/5 BALANCE Static Sitting Balance: Fair Dynamic Sitting Balance: Fair Static Standing Balance: Poor Dynamic Standing Balance: Poor ACTIVITY TOLERANCE Sitting Activity: sitting EOB, cues for upright posture, hand placement to maintain midline Sitting Activity Tolerance (in minutes): 5 Standing Activity: ambulation GOALS Patient will demonstrate progress to optimize functional mobility, maximize (more content not included)... [facility] HNO ID: [id number] Author: NIMA PETERS RT(R) Service: Radiology Author Type: Chemical Engineer Type: Allied Health Filed: 01/25/2025 14:01 Note Text: Radiology Service Progress Note PATIENT NAME: Gaston Lainez DATE OF SERVICE: January 25, 2025 TIME: 2:00 PM PATIENT IDENTITY VERIFICATION COMPLETED USING TWO (2) IDENTIFIERS: Name and Date of confirmed by patient verbally and Name and Date of confirmed by identification band. FALL SCREENING: Has the patient had 2 falls in the last year or 1 fall with injury or currently using an Ambulatory Assistive Device (Walker, Cane, Wheelchair, Crutches, etc.)? Emergency Room Patient: Screened in ED PATIENT GENDER DATA: Assigned male at PATIENT RELEVANT IMPLANT DATA REVIEWED: Not Applicable PATIENT PRESENTS WITH AN IMPLANTABLE OR ATTACHED WOMENS VOLLEYBALL COACH: No RADIOLOGY DEPARTMENT: CT; Exam(s) Completed: Brain PERIPHERAL IV DATA: Not applicable SIGNED BY: RT Jesus(Laurie) January 25, 2025 2:00 PM [facility] HNO ID: [id number] Author: NIMA PETERS RT(R) Service: Radiology Author Type: Chemical Engineer Type: Allied Health Filed: 01/25/2025 11:53 Note Text: Radiology Service Progress Note PATIENT NAME: Gaston Lainez DATE OF SERVICE: January 25, 2025 TIME: 11:52 AM PATIENT IDENTITY VERIFICATION COMPLETED USING TWO (2) IDENTIFIERS: Name and Date of confirmed by patient verbally and Name and Date of confirmed by identification band. FALL SCREENING: Has the patient had 2 falls in the last year or 1 fall with injury or currently using an Ambulatory Assistive Device (Walker, Cane, Wheelchair, Crutches, etc.)? Emergency Room Patient: Screened in ED PATIENT GENDER DATA: Assigned male at PATIENT RELEVANT IMPLANT DATA REVIEWED: Not Applicable PATIENT PRESENTS WITH AN IMPLANTABLE OR ATTACHED WOMENS VOLLEYBALL COACH: No RADIOLOGY DEPARTMENT: CT; Exam(s) Completed: Spine PERIPHERAL IV DATA: Not applicable SIGNED BY: Nima Peters RT(R) January 25, 2025 11:52 AM Normal [facility] CBC W Auto Differential pane l (Bld)on 01-25-2025 Basophils (Bld) [#/Vol] 0.04 10*3/uL Normal <0.11 [facility] Comment on above: Order Comment: Speci men Type: BLOOD SPECIMENOrdering Facility: [facility] Address: [address] [place] [address] Performed By: #### 5 7021-8 ####[facility]ORATORYCLIA [id number] [place] [address] [place] Basophils/100 WBC (Bld) 0.5 % Normal [facility] Comment on above: Order Comment: Speci men Type: BLOOD SPECIMENOrdering Facility: [facility] Address: [address] [place] [address] Performed By: #### 5 7021-8 ####[facility]ORATORYCLIA [id number] [place] [address] [place] Differential cell count method Nom (Bld) Auto Normal [facility] Comment on above: Order Comment: Speci men Type: BLOOD SPECIMENOrdering Facility: [facility] Address: [address] [place] [address] Performed By: #### 5 7021-8 ####[facility]ORATORYCLIA [id number] [place] [address] [place] Eosinophils (Bld) [#/Vol] 0.07 10*3/uL Normal <0.46 [facility] Comment on above: Order Comment: Speci men Type: BLOOD SPECIMENOrdering Facility: [facility] Address: [address] [place] [address] Performed By: #### 5 7021-8 ####[facility]ORATORYCLIA [id number] [address] STATES [place] Eosinophils/100 WBC (Bld) 0.9 % Normal [facility] Comment on above: Order Comment: Speci men Type: BLOOD SPECIMENOrdering Facility: [facility] Address: [address] [place] [address] Performed By: #### 5 7021-8 ####[facility]ORATORYCLIA [id number] [address] [place] Erythrocyte distribution width (RBC) [Ratio] 12.7 % Normal 11.5-15.0 [facility] Comment on above: Order Comment: Speci men Type: BLOOD SPECIMENOrdering Facility: [facility] Address: [address] [place] [address] Performed By: #### 5 7021-8 ####[facility] LABORATORYCLIA [id number] [address] Hematocrit (Bld) [Volume fraction] 40.2 % Normal 39.0-51.0 [facility] Comment on above: Order Comment: Speci men Type: BLOOD SPECIMENOrdering Facility: [facility] Address: [address] [place] [address] Performed By: #### 5 7021-8 ####[facility] LABORATORYCLIA [id number] [place] [address] [place] Hemoglobin (Bld) [Mass/Vol] 13.6 g/dL Normal 13.0-17.0 [facility] Comment on above: Order Comment: Speci men Type: BLOOD SPECIMENOrdering Facility: [facility] Address: [address] [place] [address] Performed By: #### 5 7021-8 ####[facility] LABORATORYCLIA [id number] [address] [place] Immature granulocytes (Bld) [#/Vol] 0.03 10*3/uL Normal <0.10 [facility] Comment on above: Order Comment: Speci men Type: BLOOD SPECIMENOrdering Facility: [facility] Address: [address] [place] [address] Performed By: #### 5 7021-8 ####[facility] LABORATORYCLIA [id number] [address] STATES [place] Immature granulocytes/100 WBC (Bld) 0.4 % Normal [facility] Comment on above: Order Comment: Speci men Type: BLOOD SPECIMENOrdering Facility: [facility] Address: [address] [place] [address] Performed By: #### 5 7021-8 ####[facility] LABORATORYCLIA [id number] [place] [address] [place] Lymphocytes (Bld) [#/Vol] 1.41 10*3/uL Normal 1.00-4.00 [facility] Comment on above: Order Comment: Speci men Type: BLOOD SPECIMENOrdering Facility: [facility] Address: [address] [place] [address] Performed By: #### 5 7021-8 ####[facility] LABORATORYCLIA [id number] [address] STATES [facility] Lymphocytes/100 WBC (Bld) 18.2 % Normal [facility] Comment on above: Order Comment: Speci men Type: BLOOD SPECIMENOrdering Facility: [facility] Address: [address] [place] [address] Performed By: #### 5 7021-8 ####[facility] LABORATORYCLIA [id number] [address] [place] MCH (RBC) [Entitic mass] 30.7 pg Normal 26.0-34.0 [facility] Comment on above: Order Comment: Speci men Type: BLOOD SPECIMENOrdering Facility: [facility] Address: [address] [place] [address] Performed By: #### 5 7021-8 ####[facility] LABORATORYCLIA [id number] [address] [place] MCHC (RBC) [Mass/Vol] 33.8 g/dL Normal 30.5-36.0 [facility] Comment on above: Order Comment: Speci men Type: BLOOD SPECIMENOrdering Facility: [facility] Address: [address] [place] [address] Performed By: #### 5 7021-8 ####[facility] LABORATORYCLIA [id number] [place] [address] [place] MCV (RBC) [Entitic vol] 90.7 fL Normal 80.0-100.0 [facility] Comment on above: Order Comment: Speci men Type: BLOOD SPECIMENOrdering Facility: [facility] Address: [address] [place] [address] Performed By: #### 5 7021-8 ####[facility] LABORATORYCLIA [id number] [place] [address] [place] Monocytes (Bld) [#/Vol] 0.68 10*3/uL Normal <0.87 [facility] Comment on above: Order Comment: Speci men Type: BLOOD SPECIMENOrdering Facility: [facility] Address: [address] [place] [address] Performed By: #### 5 7021-8 ####[facility] LABORATORYCLIA [id number] [address] [place] Monocytes/100 WBC (Bld) 8.8 % Normal [facility] Comment on above: Order Comment: Speci men Type: BLOOD SPECIMENOrdering Facility: [facility] Address: [address] [place] [address] Performed By: #### 5 7021-8 ####[facility] LABORATORYCLIA [id number] [place] [address] [place] Neutrophils (Bld) [#/Vol] 5.52 10*3/uL Normal 1.45-7.50 [facility] Comment on above: Order Comment: Speci men Type: BLOOD SPECIMENOrdering Facility: [facility] Address: [address] [place] [address] Performed By: #### 5 7021-8 ####[facility] LABORATORYCLIA [id number] [place] [address] [place] Neutrophils/100 WBC (Bld) 71.2 % Normal [facility] Comment on above: Order Comment: Speci men Type: BLOOD SPECIMENOrdering Facility: [facility] Address: [address] [place] [address] Performed By: #### 5 7021-8 ####[facility] LABORATORYCLIA [id number] [place] [address] [place] Nucleated RBC (Bld) [#/Vol] 10*3/uL Normal <0.01 [facility] Comment on above: Order Comment: Speci men Type: BLOOD SPECIMENOrdering Facility: [facility] Address: [address] [place] [address] Performed By: #### 5 7021-8 ####[facility] LABORATORYCLIA [id number] [place] [address] [place] Nucleated RBC/100 WBC (Bld) [Ratio] 0.0 /100 WBC Normal [facility] Comment on above: Order Comment: Speci men Type: BLOOD SPECIMENOrdering Facility: [facility] Address: [address] [place] [address] Performed By: #### 5 7021-8 ####[facility] LABORATORYCLIA [id number] [place] [address] [place] Platelet mean volume (Bld) [Entitic vol] 8.9 fL Low 9.0-12.7 [facility] Comment on above: Order Comment: Speci men Type: BLOOD SPECIMENOrdering Facility: [facility] Address: [address] [place] [address] Performed By: #### 5 7021-8 ####[facility] LABORATORYCLIA [id number] [place] [address] [place] Platelets (Bld) [#/Vol] 262 10*3/uL Normal 150-400 [facility] Comment on above: Order Comment: Speci men Type: BLOOD SPECIMENOrdering Facility: [facility] Address: [address] [place] [address] Performed By: #### 5 7021-8 ####[facility] LABORATORYCLIA [id number] [place] [address] [place] RBC (Bld) [#/Vol] 4.43 10*6/uL Normal 4.20-6.00 [facility] Comment on above: Order Comment: Speci men Type: BLOOD SPECIMENOrdering Facility: [facility] Address: [address] [place] [id number] Performed By: #### 5 7021-8 ####[facility] LABORATORYCLIA [id number] [address] WBC (Bld) [#/Vol] 7.75 10*3/uL Normal 3.70-11.00 [facility] Comment on above: Order Comment: Rosemariei leonor Type: BLOOD SPECIMENOrdering Facility: [facility] Address: [address] [place] [address] Performed By: #### 5 7021-8 ####[facility] LABORATORYCLIA [id number] [address] CONSULTon 01-25-2025 CONSULT HNO ID: [id number] Author: LYNNE BIGGS MD Service: General Surgery Author Type: Resident Type: Consults Filed: 01/26/2025 14:07 Note Text: Attestation signed by Lynne Biggs MD at 01/26/2025 2:07 PM Attending Note I evaluated the patient and personally participated in the blevins components. I agree with the resident's findings and plan as documented and have discussed the case and management of the patient's care with the resident. Signature: Lynne Biggs MD Date: 01/26/2025 Time: 2:07 PM TRAUMA SURGERY HANDP [facility] Subjective 74 year old male with PMH of dementia, COPD, anxiety, HLD, GERD who is here after a fall out of bed 8 days ago. at bedside gives the history as patient has dementia and does not recall the events. She states last week on Tuesday, she was awoken by a large thud and found her out of bed on the floor. Presumed he fell out of bed. Think she hit his head but is unsure. Patient does not recall falling. took him to an outside hospital at that time and she states no scans were obtained and he was sent home. Since Tuesday she reports he has not been his usual self with his dementia much worse. More tired and does not want to sit up etc. So she brought him to the ED. CT H showed acute intraparenchymal hemorrhage and thin SDH. HPI/CHIEF COMPLAINT: presumed fall out of bed 8 days ago. BRIEF DESCRIPTION OF INJURIES: ICH, SDH LAST FLUIDS/MEAL: unknown CODE STATUS: Not discussed ALLERGIES No Known Allergies (Not in a hospital admission) DATE OF LAST TETANUS: unknown Immunization History Administered Date(s) Administered COVID-19 original vaccine, age 12+ yr, monovalent (PFIZER-BIONTECH - MACK TOP) 02/18/2022 COVID-19 original vaccine, age 12+ yr, monovalent (PFIZER-BIONTECH - PURPLE TOP) 11/04/2020 12/01/2020 06/10/2021 COVID-19 vaccine, age 12+ yr (PFIZER-BIONTECH COMIRNATY) 05/28/2023 05/28/2024 COVID-19 vaccine, age 12+ yr, bivalent (PFIZER-BIONTECH) 07/02/2022 influenza (HD-IIV3) vaccine, age 65+ yr, high dose, trivalent, PF (FLUZONE HIGH-DOSE) 06/10/2015 06/12/2016 07/21/2016 06/15/2017 06/22/2018 05/08/2019 06/22/2019 influenza (HD-IIV4) vaccine, age 65+ yr, high dose, quadrivalent, PF (FLUZONE HIGH-DOSE) 06/02/2020 06/10/2021 06/23/2022 05/28/2023 influenza (aIIV3) vaccine, age 65+ yr, trivalent, PF (FLUAD) 05/28/2024 influenza vaccine, unspecified formulation 07/01/2008 pneumococcal conjugate (PCV13) vaccine, 13 valent (PREVNAR 13) 03/02/2016 pneumococcal polysaccharide (PPV23) vaccine, 23 valent (PNEUMOVAX 23) 07/01/2008 01/30/2018 respiratory syncytial virus (RSV) vaccine, adjuvanted (AREXVY) 05/28/2024 tetanus diphtheria pertussis (Tdap) vaccine, age 7+ yr (ADACEL, BOOSTRIX) 03/05/2008 zoster (ZVL) vaccine, live (ZOSTAVAX) 10/09/2014 PAST MEDICAL HISTORY Diagnosis Date Abnormal stress echocardiogram 01/14/2021 01/21/[address] Barragan: right dominant. LMT min luminal, LAD mild diffuse, LCx mild luminal with large caliber nondominant vessel extending into a single large obtuse marginal branch, proximal vessel is mildly calcified +mild luminal irreg, RCA 40% Large-caliber dominant vessel: moderate calcification from the proximal to mid vessel, mild diffuse ectatic disease proximal.The ostium of the Anxiety state, unspecified 10/24/2007 Benign paroxysmal positional vertigo one remote episode Bunion Chronic obstructive asthma, unspecified 10/24/2007 Depression likely bipolar disorder Depressive disorder, not elsewhere classified 10/24/2007 Generalized anxiety disorder 10/24/2007 History of marijuana use 03/02/2016 Quit 08/2015 Hypermobility syndrome Mild coronary artery disease Mixed hyperlipidemia 11/27/2008 Nontraumatic rupture of tendons of biceps (long head) R, 09 L OCD (obsessive compulsive disorder) Pneumonia, organism unspecified(486) 11/2001 bilateral: cleared Primary insomnia 03/02/2016 Senile dementia (HCC) 2022 PAST SURGICAL HISTORY Procedure Laterality Date COLONOSCOPY FLX DX W/COLLJ SPEC WHEN PFRMD 09/21/2006 repeat due 2016 COLONOSCOPY FLX DX W/COLLJ SPEC WHEN PFRMD 04/22/2020 Colonoscopy COLSC FLX W/RMVL OF TUMOR POLYP LESION SNARE TQ 04/19/2017 2 adenomatous polyps - ESOPHAGOGASTRODUODENOSCOPY TRANSORAL DIAGNOSTIC 07/23/2019 EGD EXCISION OF BENIGN LESION GREATER THAN 1.25 CM 03/29/2000 tongue and lip lesions: fibroma; nose: sebaceous hyperplasia PAST SURGICAL HISTORY OF repair flexor tendon left thumb PAST SURGICAL HISTORY OF Left 09/03/2019 Dr. medina [facility]: left CTR and tenosynovectomy at wrist level PAST SURGICAL HISTORY OF Left 04/29/2021 Left median nerve release at the elbow and forearm, Dontae Medina MD, [facility] ROTAT (more content not included)... Normal [facility] CONSULT HNO ID: [id number] Author: RASHAUN RIVERS MD Service: Neurosurgery Author Type: Nurse Practitioner Type: Consults Filed: 01/26/2025 09:47 Note Text: Attestation signed by Rashaun Rivers MD at 01/26/2025 9:47 AM I agree with the note of Enmanuel Mata. I saw the patient personally and examined him this morning. He is awake eating breakfast. Slow affect. No focal neurological deficit. The initial CAT scan and the repeat CAT scan of the head were reviewed. There is a subcortical left frontal hematoma which has not changed on the repeat scan and is a nonsurgical hematoma. There was a small subdural hematoma on the initial scan which became less on the second scan over the right convexity. May ambulate and undergo physical and Occupational Therapy. He may have subcu heparin 48 hours after the last CT scan of the head for DVT prophylaxis. CONSULT: NEUROSURGERY SERVICE Patient Name: Gaston Lainez Date of : 1950 SERVICE DATE: 01/25/2025 REASON FOR CONSULT: ICH REQUESTING PHYSICIAN: Megan churchill MD PRIMARY CARE PHYSICIAN: Leticia Harding, [employer]PROMOTIONS REPRESENTATIVE Consultation requested by Dr. Delfin RHODES for an opinion regarding ICH. My final recommendations will be communicated back to the requesting physician by way of shared Medical record or letter to requesting physician via [place] mail. CHIEF COMPLAINT: fall HISTORY OF PRESENT ILLNESS : Gaston Lainez is a 74 year old male PMH dementia (per baseline AAO2) who sustained fall out of bed about nine days ago. He was taken to ED and face lac was stiched, no imaging done. reports intermittent irratability (not unusual), sleepiness, and balance issues since fall. He presented to PCP for stitch removal and upon hearing this they obtained CT brain which showed subacute left frontal IPH and right SDH. On encounter patient has no complaints. PAST MEDICAL HISTORY Diagnosis Date Abnormal stress echocardiogram 01/14/2021 01/21/[address] Barragan: right dominant. LMT min luminal, LAD mild diffuse, LCx mild luminal with large caliber nondominant vessel extending into a single large obtuse marginal branch, proximal vessel is mildly calcified +mild luminal irreg, RCA 40% Large-caliber dominant vessel: moderate calcification from the proximal to mid vessel, mild diffuse ectatic disease proximal.The ostium of the Anxiety state, unspecified 10/24/2007 Benign paroxysmal positional vertigo one remote episode Bunion Chronic obstructive asthma, unspecified 10/24/2007 Depression likely bipolar disorder Depressive disorder, not elsewhere classified 10/24/2007 Generalized anxiety disorder 10/24/2007 History of marijuana use 03/02/2016 Quit 08/2015 Hypermobility syndrome Mild coronary artery disease Mixed hyperlipidemia 11/27/2008 Nontraumatic rupture of tendons of biceps (long head) R, 2/09 L OCD (obsessive compulsive disorder) Pneumonia, organism unspecified(486) 11/2001 bilateral: cleared Primary insomnia 03/02/2016 Senile dementia (HCC) 2022 PAST SURGICAL HISTORY Procedure Laterality Date COLONOSCOPY FLX DX W/COLLJ SPEC WHEN PFRMD 09/21/2006 repeat due 2016 COLONOSCOPY FLX DX W/COLLJ SPEC WHEN PFRMD 04/22/2020 Colonoscopy COLSC FLX W/RMVL OF TUMOR POLYP LESION SNARE TQ 04/19/2017 2 adenomatous polyps - ESOPHAGOGASTRODUODENOSCOPY TRANSORAL DIAGNOSTIC 07/23/2019 EGD EXCISION OF BENIGN LESION GREATER THAN 1.25 CM 03/29/2000 tongue and lip lesions: fibroma; nose: sebaceous hyperplasia PAST SURGICAL HISTORY OF repair flexor tendon left thumb PAST SURGICAL HISTORY OF Left 09/03/2019 Dr. medina [facility]: left CTR and tenosynovectomy at wrist level PAST SURGICAL HISTORY OF Left 04/29/2021 Left median nerve release at the elbow and forearm, Dontae Medina MD, [facility] ROTATOR CUFF REPAIR 2009 left ROTATOR CUFF REPAIR 04/22/2016 right VASECTOMY UNI/BI SPX W/POSTOP SEMEN EXAMS FAMILY HISTORY Problem Relation Age of Onset Heart Mother age 66, CA, SLE other (lupus) Mother diagnosed age 49 Heart Father age 84, CHF other (G6PD) Sister G6PD Diabetes Brother 1/2 brother Hypertension Brother 1/2 brother Colon Cancer Brother rectal cancer? 1/2 brother ALLERGIES No Known Allergies Current Facility-Administered Medications Medication Dose Route Frequency Provider Last Rate Last Admin NaCl 0.9% iv flush bag 20 mL INTRAVENOUS PRN Enmanuel Mata APRN.JUSTICE levETIRAcetam 500 mg injection (KEPPRA) 500 mg INTRAVENOUS BID Enmanuel Mata APRN.PROMOTIONS REPRESENTATIVE Current Outpatient Medications Medication Sig Dispense Refill busPIRone (BUSPAR) 15 mg tablet Take 1 tablet by mouth two times a day. 180 tablet 1 donepezil (ARICEPT) 5 mg tablet Take 1 tablet by mouth yared (more content not included)... Normal [facility] CT BRAIN WO IVCONon 01-26-20 CT BRAIN WO IVCON * * *Final Report* * * DATE OF EXAM: Jan 25 2025 2:03PM [facility] 0504 - CT BRAIN WO IVCON / PROCEDURE REASON: Subdural hematoma * * * * Physician Interpretation * * * * EXAMINATION: CT BRAIN WO IVCON CLINICAL HISTORY: The patient is a 74-year-old male who suffered a fall out of bed 9 days earlier and has documented right subdural hematoma and left frontal intraparenchymal hemorrhage on previous CT scans. TECHNIQUE: Serial axial images without IV contrast were obtained from the vertex to the foramen magnum. MQ: CTBWO_3 CT Radiation dose: Integrated Dose-Length Product (DLP) for this visit = 826 mGy*cm CT Dose Reduction Employed: Automated exposure control(AEC) and iterative recon COMPARISON: CT scan of the head from earlier on the same day from [facility] a.m MRI of the brain from January 20, 2024. RESULT: Localizer images: There are several missing teeth. Post-operative change: None. Acute change: No evidence of an acute infarct or other acute parenchymal process. Hemorrhage: There continues to be an oval left frontal subcortical intraparenchymal hemorrhage. Since the exam earlier on the same day there is minimal resorption of some of the high attenuation globin portion of the hematoma. Its overall size, surrounding edema, and mass effect remain stable and unchanged. There also has been some overall decrease in the amount of right cerebral convexity subdural hematoma with minimal residual high attenuation product still visible. No new sites of hemorrhage are identified. ECASS hemorrhagic transformation score: Not Applicable Mass Lesion / Mass Effect: There is no evidence of an intracranial mass or extraaxial fluid collection. No significant mass effect. Chronic change: Minimal patchy foci of low attenuation are present within the supratentorial white matter, a nonspecific finding that most commonly represents mild small vessel disease. Remote subcortical lacunar infarct in the left parietal lobe is stable and unchanged. Parenchyma: There is mild generalized volume loss. The rest of the brain parenchyma is otherwise within normal limits for age. Ventricles: Ventricular enlargement concordant with the degree of parenchymal volume loss. Paranasal sinuses and skull base: The visualized paranasal sinuses are grossly clear. The skull base and imaged soft tissues are unremarkable. IMPRESSION: There has been some interval resorption of right convexity subdural hematoma. There is a persistent left frontal subcortical intraparenchymal hemorrhage with similar amounts of edema and mass effect. No new intracranial abnormalities have developed. Linux Admin: AMILCAR Transcribe Date/Time: Jan 25 2025 2:59P Dictated by : SHAYLA MCFARLAND MD This examination was interpreted and the report reviewed and electronically signed by: SHAYLA MCFARLAND MD on Jan 25 2025 3:08PM EST [id number] Normal [facility] CT BRAIN WO IVCON * * *Final Report* * * DATE OF EXAM: Jan 25 2025 8:38AM [facility] 0504 - CT BRAIN WO IVCON / PROCEDURE REASON: multiple diagnoses * * * * Physician Interpretation * * * * EXAMINATION: CT BRAIN WO IVCON CLINICAL HISTORY: Ataxia TECHNIQUE: Serial axial images without IV contrast were obtained from the vertex to the foramen magnum. MQ: CTBWO_3 CT Radiation dose: Integrated Dose-Length Product (DLP) for this visit = 784 mGy*cm CT Dose Reduction Employed: Automated exposure control(AEC) and iterative recon COMPARISON: MRI brain 01/20/2024 RESULT: Localizer images: Unremarkable. Post-operative change: None. Acute change: No evidence of acute large vascular territory infarct. Hemorrhage and mass effect: Acute intraparenchymal hemorrhage is present within the left superior frontal gyrus measuring up to 2.3 cm in diameter with surrounding edema and minimal local mass effect. Thin subdural hematomas present along the right cerebral convexity measuring up to 4 mm in greatest thickness with no substantial mass effect or midline shift. Chronic change: Small remote lacunar infarct versus dilated perivascular space is present within the subcortical white matter of the left precentral gyrus. Patchy areas of hypoattenuation throughout the bilateral cerebral hemispheric white matter are compatible with sequelae of chronic small vessel disease. Diffuse brain volume loss with ex-vacuo ventricular enlargement. Intracranial arterial calcifications are present. Ventricles: No evidence of hydrocephalus. Paranasal sinuses and skull base: Likely small retention cyst in the left maxillary sinus. The skull base and imaged soft tissues are unremarkable. IMPRESSION: Acute intraparenchymal hemorrhage is present within the left superior frontal gyrus measuring up to 2.3 cm in diameter with surrounding edema and minimal local mass effect. Thin subdural hematomas present along the right cerebral convexity measuring up to 4 mm in greatest thickness with no substantial mass effect or midline shift. CRITICAL TEST/RESULTS: Acuity: Critical Finding: Acute intracranial hemorrhage Communication: Communicated with LETICIA HARDING on 01/25/2025 8:53 AM via verbal communication. --END OF FINDING-- Linux Admin: AMILCAR Transcribe Date/Time: Jan 25 2025 8:43A Dictated by : ADRY LYMAN MD This examination was interpreted and the report reviewed and electronically signed by: ADRY LYMAN MD on Jan 25 2025 8:53AM EST [id number] CRITICAL!! Invalid Interpretation Code [facility] CT CERVICAL SPINE WO IVCONon 01-25-2025 CT CERVICAL SPINE WO IVCON * * *Final Report* * * DATE OF EXAM: Jan 25 2025 11:56AM [facility] 0505 - CT CERVICAL SPINE WO IVCON / PROCEDURE REASON: Spine fracture, cervical, traumatic * * * * Physician Interpretation * * * * EXAMINATION: CT CERVICAL SPINE WITHOUT CONTRAST HISTORY: The patient is 74-year-old man who sustained a fall out of bed resulting in a subdural hematoma. The patient also has neck pain. TECHNIQUE: CT of the cervical spine without IV contrast. Spiral, high resolution axial images were obtained from the skull base to the cervicothoracic junction with sagittal and coronal planar reconstructions. M: CTCPWO_2 CT Radiation dose: Integrated dose-length product (DLP) for this visit = 490 mGy*cm. CT Dose Reduction Employed: Automated exposure control (AEC) was used. COMPARISON: None. RESULT: Counting reference: Craniocervical junction. Alignment: Alignment is anatomic. Craniocervical junction: There is some narrowing of the articulation of C1 with the dens with some periarticular spurring. There is no significant pannus formation. Osseous structures/fracture: No evidence of a lytic or blastic process in the visualized spine. No evidence of acute or chronic fracture. Cervical soft tissues: The paraspinal soft tissues planes are maintained. Degenerative changes: There is disc space narrowing of all cervical disc spaces with some uncovertebral hypertrophic changes as well as anterior osteophyte formation. There is mild to moderate left-sided foraminal stenosis at C5-6 and C6-7 as well as mild to moderate right-sided foraminal stenosis at C4-5 and C5-6. IMPRESSION: There is no evidence of fracture or destructive process. There is multilevel cervical spondylosis with mainly foraminal stenosis as described in the body of the report. Linux Admin: PSCB Transcribe Date/Time: Jan 25 2025 12:22P Dictated by : SHAYLA MCFARLAND MD This examination was interpreted and the report reviewed and electronically signed by: SHAYLA MCFARLAND MD on Jan 25 2025 12:31PM EST [id number] Normal [facility] CT Head WO contrastOrdered B y: [facility] Provider on 01-25-2025 Interpretation and review of laboratory results Abnormal [facility] Radiology Result CRITICAL!! Abnormal [facility] 2024 IMPRESSION: Acute intraparenchymal hemorrhage is present within the left superior frontal gyrus measuring up to 2.3 cm in diameter with surrounding edema and minimal local mass effect. Thin subdural hematomas present along the right cerebral convexity measuring up to 4 mm in greatest thickness with no substantial mass effect or midline shift. CRITICAL TEST/RESULTS: Acuity: Critical Finding: Acute intracranial hemorrhage Communication: Communicated with LETICIA HARDING on 01/25/2025 8:53 AM via verbal communication. --END OF FINDING-- Linux Admin: AMILCAR Transcribe Date/Time: Jan 25 2025 8:43A Dictated by : ADRY LYMAN MD This examination was interpreted and the report reviewed and electronically signed by: ADRY LYMAN MD on Jan 25 2025 8:53AM [facility] DIVISION OF RADIOLOGY * * *Final Report* * * DATE OF EXAM: Jan 25 2025 8:38AM [facility] 0504 - CT BRAIN WO IVCON / PROCEDURE REASON: multiple diagnoses * * * * Physician Interpretation * * * * EXAMINATION: CT BRAIN WO IVCON CLINICAL HISTORY: Ataxia TECHNIQUE: Serial axial images without IV contrast were obtained from the vertex to the foramen magnum. MQ: CTBWO_3 CT Radiation dose: Integrated Dose-Length Product (DLP) for this visit = 784 mGy*cm CT Dose Reduction Employed: Automated exposure control(AEC) and iterative recon COMPARISON: MRI brain 01/20/2024 RESULT: Localizer images: Unremarkable. Post-operative change: None. Acute change: No evidence of acute large vascular territory infarct. Hemorrhage and mass effect: Acute intraparenchymal hemorrhage is present within the left superior frontal gyrus measuring up to 2.3 cm in diameter with surrounding edema and minimal local mass effect. Thin subdural hematomas present along the right cerebral convexity measuring up to 4 mm in greatest thickness with no substantial mass effect or midline shift. Chronic change: Small remote lacunar infarct versus dilated perivascular space is present within the subcortical white matter of the left precentral gyrus. Patchy areas of hypoattenuation throughout the bilateral cerebral hemispheric white matter are compatible with sequelae of chronic small vessel disease. Diffuse brain volume loss with ex-vacuo ventricular enlargement. Intracranial arterial calcifications are present. Ventricles: No evidence of hydrocephalus. Paranasal sinuses and skull base: Likely small retention cyst in the left maxillary sinus. The skull base and imaged soft tissues are unremarkable. DIV[facility]OLOGY [facility] * * *Final Report* * * DATE OF EXAM: Jan 25 2025 8:38AM [facility] 0504 - CT BRAIN WO IVCON / PROCEDURE REASON: multiple diagnoses * * * * Physician Interpretation * * * * EXAMINATION: CT BRAIN WO IVCON CLINICAL HISTORY: Ataxia TECHNIQUE: Serial axial images without IV contrast were obtained from the vertex to the foramen magnum. MQ: CTBWO_3 CT Radiation dose: Integrated Dose-Length Product (DLP) for this visit = 784 mGy*cm CT Dose Reduction Employed: Automated exposure control(AEC) and iterative recon COMPARISON: MRI brain 01/20/2024 RESULT: Localizer images: Unremarkable. Post-operative change: None. Acute change: No evidence of acute large vascular territory infarct. Hemorrhage and mass effect: Acute intraparenchymal hemorrhage is present within the left superior frontal gyrus measuring up to 2.3 cm in diameter with surrounding edema and minimal local mass effect. Thin subdural hematomas present along the right cerebral convexity measuring up to 4 mm in greatest thickness with no substantial mass effect or midline shift. Chronic change: Small remote lacunar infarct versus dilated perivascular space is present within the subcortical white matter of the left precentral gyrus. Patchy areas of hypoattenuation throughout the bilateral cerebral hemispheric white matter are compatible with sequelae of chronic small vessel disease. Diffuse brain volume loss with ex-vacuo ventricular enlargement. Intracranial arterial calcifications are present. Ventricles: No evidence of hydrocephalus. Paranasal sinuses and skull base: Likely small retention cyst in the left maxillary sinus. The skull base and imaged soft tissues are unremarkable. IMPRESSION IMPRESSION: Acute intraparenchymal hemorrhage is present within the left superior frontal gyrus measuring up to 2.3 cm in diameter with surrounding edema and minimal local mass effect. Thin subdural hematomas present along the right cerebral convexity measuring up to 4 mm in greatest thickness with no substantial mass effect or midline shift. CRITICAL TEST/RESULTS: Acuity: Critical Finding: Acute intracranial hemorrhage Communication: Communicated with LETICIA HARDING on 01/25/2025 8:53 AM via verbal communication. --END OF FINDING-- Linux Admin: AMILCAR Transcribe Date/Time: Jan 25 2025 8:43A Dictated by : ADRY LYMNA MD This examination was interpreted and the report reviewed and electronically signed by: ADRY LYMAN MD on Jan 25 2025 8:53AM EST [facility] Radiology Study observation (narrative) [facility] Comprehensive metabolic 2000 panelon 01-25-2025 Albumin [Mass/Vol] 4.3 g/dL Normal 3.9-4.9 [facility] Comment on above: Order Comment: Speci men Type: BLOOD SPECIMENOrdering Facility: [facility] Address: [address] [place] [address] Performed By: #### 1 9123-9, 65785-7 ####[facility]OVE[facility] LABORATORYCLIA [id number] [place] [id number] [place] ALP [Catalytic activity/Vol] 88 U/L Normal 38-113 [facility] Comment on above: Order Comment: Speci men Type: BLOOD SPECIMENOrdering Facility: [facility] Address: [address] [place] [address] Performed By: #### 1 9123-9, 10166-5 ####LOVELL LABORATORYCLIA [id number] [place] [address] [place] ALT [Catalytic activity/Vol] 14 U/L Normal 10-54 [facility] Comment on above: Order Comment: Speci men Type: BLOOD SPECIMENOrdering Facility: [facility] Address: [address] [place] [address] Performed By: #### 1 9123-9, 42484-0 ####LOVELL LABORATORYCLIA [id number] [place] [id number] [place] Anion gap [Moles/Vol] 10 mmol/L Normal 8-15 [facility] Comment on above: Order Comment: Speci men Type: BLOOD SPECIMENOrdering Facility: [facility] Address: [address] [place] [address] Performed By: #### 1 9123-9, 02135-3 ####LOVELL LABORATORYCLIA [id number] [place] [id number] [place] AST [Catalytic activity/Vol] 18 U/L Normal 14-40 [facility] Comment on above: Order Comment: Speci men Type: BLOOD SPECIMENOrdering Facility: [facility] Address: [address] [place], [place] [address], [place] [address] Performed By: #### 1 23-9, 80952-1 ####LOVELL LABORATORYCLIA [id number] [place] [address] [place] Bilirubin [Mass/Vol] 0.4 mg/dL Normal 0.2-1.3 [facility] Comment on above: Order Comment: Speci men Type: BLOOD SPECIMENOrdering Facility: [facility] Address: [address] [place] [address] Performed By: #### 1 23-9, 43115-6 ####LOVELL LABORATORYCLIA [id number] [place] [address] [place] Calcium [Mass/Vol] 9.6 mg/dL Normal 8.5-10.2 [facility] Comment on above: Order Comment: Speci men Type: BLOOD SPECIMENOrdering Facility: [facility] Address: [address] [place] [address] Performed By: #### 1 239, ####LOVELL LABORATORYCLIA [id number] [place] [address] [place] Chloride [Moles/Vol] 98 mmol/L Normal 98-107 [facility] Comment on above: Order Comment: Speci men Type: BLOOD SPECIMENOrdering Facility: [facility] Address: [address] [place] [address] Performed By: #### 1 23-9, ####LOVELL LABORATORYCLIA [id number] [place] [id number] [place] CO2 [Moles/Vol] 27 mmol/L Normal 22-30 [facility] Comment on above: Order Comment: Speci men Type: BLOOD SPECIMENOrdering Facility: [facility] Address: [address] [place] [address] Performed By: #### 1 23-9, ####LOVELL LABORATORYCLIA [id number] [place] [address] [place] Creatinine [Mass/Vol] 0.93 mg/dL Normal 0.73-1.22 [facility] Comment on above: Order Comment: Speci men Type: BLOOD SPECIMENOrdering Facility: [facility] Address: [address] [place] [address] Performed By: #### 1 9123-9, 44784-0 ####[facility] LABORATORYCLIA [id number] [place] [address] [place] Creatinine and Glomerular filtration rate.predicted panel (S/P/Bld) 86 mL/min/1.73m??? Normal >=60 [facility] Comment on above: Order Comment: Kait galvez Type: BLOOD SPECIMENOrdering Facility: [facility] Address: [address] [place] [address] Result Comment: Rashmi mated Glomerular Filtration Rate (eGFR) is calculated using the 2020 CKD-EPI creatinine equation. This equation utilizes serum creatinine, sex, and age as parameters. The creatinine assay has traceable calibration to isotope dilution-mass spectrometry. Refer to KDIGO guidelines for clinical interpretation. In patients with unstable renal function, e.g. those with acute kidney injury, the eGFR may not accurately reflect actual GFR. Performed By: #### 1 9123-9, 63013-5 ####[facility] LABORATORYCLIA [id number] [place] [address] [place] Glucose [Mass/Vol] 105 mg/dL High 74-99 [facility] Comment on above: Order Comment: Kait galvez Type: BLOOD SPECIMENOrdering Facility: [facility] Address: [address] [place] [address] Result Comment: The [place] Diabetes Association (ADA) provides guidance for cutoff values for fasting glucose and random glucose. The ADA defines fasting as no caloric intake for at least 8 hours. Fasting plasma glucose results between 100 to 125 mg/dL indicate increased risk for diabetes (prediabetes). Fasting plasma glucose results greater than or equal to 126 mg/dL meet the criteria for diagnosis of diabetes. In the absence of unequivocal hyperglycemia, results should be confirmed by repeat testing. In a patient with classic symptoms of hyperglycemia or hyperglycemic crisis, random plasma glucose results greater than or equal to 200 mg/dL meet the criteria for diagnosis of diabetes. Reference: Standards of Medical Care in Diabetes 2016, [place] Diabetes Association. Diabetes Care. 2016.39(Suppl 1). Performed By: #### 1 9123-9, ####LOVELL LABORATORYCLIA [id number] [place] [address] [place] Potassium [Moles/Vol] 4.2 mmol/L Normal 3.7-5.1 [facility] Comment on above: Order Comment: Speci men Type: BLOOD SPECIMENOrdering Facility: [facility] Address: [address] [place] [address] Performed By: #### 1 23-9, 66616-1 ####LOVELL LABORATORYCLIA [id number] [place] [address] [place] Protein [Mass/Vol] 7.5 g/dL Normal 6.3-8.0 [facility] Comment on above: Order Comment: Speci men Type: BLOOD SPECIMENOrdering Facility: [facility] Address: [address] [place] [address] Performed By: #### 1 23-9, 42474-9 ####LOVELL LABORATORYCLIA [id number] [address] Sodium [Moles/Vol] 135 mmol/L Low 136-144 [facility] Comment on above: Order Comment: Speci men Type: BLOOD SPECIMENOrdering Facility: [facility] Address: [address] [place] [address] Performed By: #### 1 9123-9, 47947-3 ####LOVELL LABORATORYCLIA [id number] [address] Urea nitrogen [Mass/Vol] 15 mg/dL Normal 9-24 [facility] Comment on above: Order Comment: Speci men Type: BLOOD SPECIMENOrdering Facility: [facility] Address: [address] [place] [address] Performed By: #### 1 23-9, ####LOVELL LABORATORYCLIA [id number] [address] ED NOTEon 01-25-2025 ED NOTE HNO ID: [id number] Author: GERARDO SHEARER RN Service: Emergency Medicine Author Type: Registered Nurse Type: ED Notes Filed: 01/25/2025 22:44 Note Text: Med are not available from pharmacy at this time. Waiting on meds [facility] ED NOTE HNO ID: [id number] Author: GERARDO SHEARER RN Service: Emergency Medicine Author Type: Registered Nurse Type: ED Notes Filed: 01/25/2025 22:16 Note Text: Registration in room [facility] ED NOTE HNO ID: [id number] Author: GERARDO SHEARER RN Service: Emergency Medicine Author Type: Registered Nurse Type: ED Notes Filed: 01/25/2025 22:15 Note Text: Call responded to floor 52 B 5252. Report given to RN Chantel. All questions answers. No any concern noted. Nurse will call ED RN if have any questions. Bed is not ready per RN on the floor. [facility] ED NOTE HNO ID: [id number] Author: GERARDO SHEARER RN Service: Emergency Medicine Author Type: Registered Nurse Type: ED Notes Filed: 01/25/2025 22:43 Note Text: Pt looks sleepy, Med given with apple sauce. Pt chew med. No any swallowing problem noted. at bedside [facility] ED NOTE HNO ID: [id number] Author: GERARDO SHEARER RN Service: Emergency Medicine Author Type: Registered Nurse Type: ED Notes Filed: 01/25/2025 20:47 Note Text: Spouse at bed side. She said pt has been sleeping all day today. Talking less. Spouse says it is his sleeping time. Pt waking on verbal stimulation, brian [facility] ED NOTE HNO ID: [id number] Author: TERA BRUCE RN Service: Emergency Medicine Author Type: Registered Nurse Type: ED Notes Filed: 01/25/2025 14:26 Note Text: Pt full bed change, incontinent and at CT had an incontinent episode when not hooked up to the external [facility] ED NOTE HNO ID: [id number] Author: TERA BRUCE RN Service: Emergency Medicine Author Type: Registered Nurse Type: ED Notes Filed: 01/25/2025 11:18 Note Text: Radiology aware of imaging Normal [facility] ED NOTE HNO ID: [id number] Author: FRABOLINDSAY LERMA Medic Service: ? Author Type: Sand Miller and Chemical Engineer Type: ED Notes Filed: 01/25/2025 10:51 Note Text: Bed: 16-ED Expected date: Expected time: Means of arrival: Comments: Lovell transfer trauma consult [facility] ED NOTE HNO ID: [id number] Author: MARIANELA SHANE RN Service: ? Author Type: Registered Nurse Type: ED Notes Filed: 01/25/2025 10:10 Note Text: CCT at bedside. Pt is calm and cooperative transferring to cot. All belongings with pt. No acute distress noted. [facility] ED NOTE HNO ID: [id number] Author: KRUNAL PHAM RN Service: ? Author Type: Registered Nurse Type: ED Notes Filed: 01/25/2025 09:46 Note Text: Bed: ED-10 Expected date: 01/25/25 Expected time: 9:04 AM Means of arrival: Car Comments: Triage - ICH [facility] ED PROV NOTEon 01-25-2025 ED PROV NOTE HNO ID: [id number] Author: KRISTEN HERRMANN DO Service: Emergency Medicine Author Type: Physician Type: ED Provider Notes Filed: 01/25/2025 15:36 Note Text: ED Provider Note Patient Name: Gaston Lainez : 1950 SERVICE DATE: 01/25/25 History Patient presents with: Head Injury: Pt dent to Ed for out pt CT showing brain bleed HPI 74-year-old male presents for head bleed. Patient states that he fell out of bed 2 days ago. States that he did strike his head. States that he did have sutures placed in his left eyebrow. Patient is accompanied by . states that patient has been more fatigued since. States that he has been acting differently and a little bit more confused. Patient denies any focal weakness or numbness, chest pain, shortness of breath, bowel changes, urinary changes. Denies any cough/URI. states that they were at a family function and patient was more quiet than he normally is. PAST MEDICAL HISTORY Diagnosis Date Abnormal stress echocardiogram 01/14/2021 01/21/[address] Barragan: right dominant. LMT min luminal, LAD mild diffuse, LCx mild luminal with large caliber nondominant vessel extending into a single large obtuse marginal branch, proximal vessel is mildly calcified +mild luminal irreg, RCA 40% Large-caliber dominant vessel: moderate calcification from the proximal to mid vessel, mild diffuse ectatic disease proximal.The ostium of the Anxiety state, unspecified 10/24/2007 Benign paroxysmal positional vertigo one remote episode Bunion Chronic obstructive asthma, unspecified 10/24/2007 Depression likely bipolar disorder Depressive disorder, not elsewhere classified 10/24/2007 Generalized anxiety disorder 10/24/2007 History of marijuana use 03/02/2016 Quit 08/2015 Hypermobility syndrome Mild coronary artery disease Mixed hyperlipidemia 11/27/2008 Nontraumatic rupture of tendons of biceps (long head) R, 10/07 L OCD (obsessive compulsive disorder) Pneumonia, organism unspecified(486) 11/2001 bilateral: cleared Primary insomnia 03/02/2016 Senile dementia (HCC) 2022 PAST SURGICAL HISTORY Procedure Laterality Date COLONOSCOPY FLX DX W/COLLJ SPEC WHEN PFRMD 09/21/2006 repeat due 2016 COLONOSCOPY FLX DX W/COLLJ SPEC WHEN PFRMD 04/22/2020 Colonoscopy COLSC FLX W/RMVL OF TUMOR POLYP LESION SNARE TQ 04/19/2017 2 adenomatous polyps - ESOPHAGOGASTRODUODENOSCOPY TRANSORAL DIAGNOSTIC 07/23/2019 EGD EXCISION OF BENIGN LESION GREATER THAN 1.25 CM 03/29/2000 tongue and lip lesions: fibroma; nose: sebaceous hyperplasia PAST SURGICAL HISTORY OF repair flexor tendon left thumb PAST SURGICAL HISTORY OF Left 09/03/2019 Dr. medina [facility]: left CTR and tenosynovectomy at wrist level PAST SURGICAL HISTORY OF Left 04/29/2021 Left median nerve release at the elbow and forearm, Dontae Medina MD, [facility] ROTATOR CUFF REPAIR 2008 left ROTATOR CUFF REPAIR 04/22/2016 right VASECTOMY UNI/BI SPX W/POSTOP SEMEN EXAMS FAMILY HISTORY Problem Relation Age of Onset Heart Mother age 66, CA, SLE other (lupus) Mother diagnosed age 49 Heart Father age 84, CHF other (G6PD) Sister G6PD Diabetes Brother 1/2 brother Hypertension Brother 1/2 brother Colon Cancer Brother rectal cancer? 1/2 brother Social History Tobacco Use Smoking status: Former Current packs/day: 0.00 Average packs/day: 0.5 packs/day for 9.0 years (4.5 ttl pk-yrs) Types: Cigarettes Start date: 11/01/1967 Quit date: 10/31/1976 Years since quittin.2 Smokeless tobacco: Never Vaping Use Vaping status: Never Used Substance and Sexual Activity Alcohol use: Yes Alcohol/week: 7.0 standard drinks of alcohol Types: 7 Glasses of wine per week Comment: daily Drug use: Not Currently Comment: marijuana use, has used inhalants Sexual activity: Yes Partners: Female ALLERGIES No Known Allergies Review of Systems Constitutional: Positive for fatigue. Negative for fever. HENT: Negative for congestion. Respiratory: Negative for cough and shortness of breath. Cardiovascular: Negative for chest pain. Gastrointestinal: Negative for abdominal pain, diarrhea, nausea and vomiting. Genitourinary: Negative for dysuria. Neurological: Negative for weakness. Physical Exam Vitals [01/25/25 0950] BP Pulse Temp Temp src Resp SpO2 Weight Height 165/77 77 36.8 ?C (98.2 ?F) Oral 20 98 % 78 kg (171 lb 15.3 oz) -- Physical Exam Constitutional: General: He is not in acute distress. Appearance: He is not ill-appearing, toxic-appearing or diaphoretic. HENT: Head: Normocephalic. Nose: Nose normal. Mouth/Throat: Mouth: Mucous membranes are moist. Eyes: Pupils: Pupils are equal, round, and reactive to light. Cardiovascular: Rate and Rhythm: Normal rate. Pulses: Normal pulses. Pulmonary: Effort: Pulmonary effort is normal. No respiratory distress. Breath sounds: (more content not included)... Normal [facility] EKGon 01-25-2025 Electrocardiogram Ventricular Rate : 7 0 BPM Atrial Rate : 70 BPM P-R Interval : 170 ms QRS Duration : 74 ms Q-T Interval : 382 ms QTC Calculation(Bazett) : 412 ms Calculated P [place] : 105 degrees Calculated R [place] : -1 degrees Calculated T [place] : -9 degrees SINUS RHYTHM WITH OCCASIONAL PREMATURE VENTRICULAR COMPLEXES SEPTAL INFARCT , AGE UNDETERMINED ABNORMAL ECG No Stemi Confirmed by KRISTEN HERRMANN DO ([id number]) on 01/25/2025 10:27:39 AM NAME : GASTON LAINEZ PID : [id number] : 1950 Gender : Male Race : ORD : Procedure Date : Jan 25 2025 09:57:46 Edit Date : Jan 25 2025 10:27:41 Diagnosis: SINUS RHYTHM WITH OCCASIONAL PREMATURE VENTRICULAR COMPLEXES SEPTAL INFARCT , AGE UNDETERMINED ABNORMAL ECG No Stemi Confirmed by KRISTEN HERRMANN DO ([id number]) on 01/25/2025 10:27:39 AM Test Reason : Location : 1 : ER 10 Overread By : KRISTEN HERRMANN DO Edited By : KRISTEN HERRMANN DO Referred By : , Acquired by : mark he, [facility] Magnesium SerPl-mCncon 01-25 Magnesium [Mass/Vol] 2.3 mg/dL Normal 1.7-2.3 [facility] Comment on above: Order Comment: Speci men Type: BLOOD SPECIMENOrdering Facility: [facility] Address: [address] [place] [address] Performed By: #### 1 9123-9, 43819-3 ####[facility] LABORATORYCLIA [id number] [address] TYPE + SCREENon 01-25-2025 ABO O [facility] Comment on above: Order Comment: Speci men Type: BLOOD SPECIMENOrdering Facility: [facility] Address: [address] [place] [address] Performed By: #### T SCR ####[facility] BLOOD BANKCLIA [id number] [address] Rh Nom (Bld) Positive [facility] Comment on above: Order Comment: Speci men Type: BLOOD SPECIMENOrdering Facility: [facility] Address: [address] [place] [address] Performed By: #### T SCR ####[facility] BLOOD BANKCLIA [id number] [address] TYPE AND SCREEN EXPIRATION 01/28/2025 23:59 [facility] Comment on above: Order Comment: Speci men Type: BLOOD SPECIMENOrdering Facility: [facility] Address: [address] [place] [address] Performed By: #### T SCR ####[facility] BLOOD BANKCLIA [id number] [address] [place] Urinalysis complete panel (U )on 01-25-2025 Bilirubin Ql (U) Negative Normal Negative [facility] Comment on above: Order Comment: Speci men Type: URINE SPECIMENOrdering Facility: [facility] Address: [address] [place] [address] Performed By: #### 2 4356-8 ####LOVELL LABORATORYCLIA [id number] [address] [place] Clarity (Unsp spec) Clear Normal Clear [facility] Comment on above: Order Comment: Speci men Type: URINE SPECIMENOrdering Facility: [facility] Address: [address] [place] [address] Performed By: #### 2 4356-8 ####LOVELL LABORATORYCLIA [id number] [address] [place] Color (U) Yellow Normal Yellow [facility] Comment on above: Order Comment: Speci men Type: URINE SPECIMENOrdering Facility: [facility] Address: [address] [place] [address] Performed By: #### 2 4356-8 ####LOVELL LABORATORYCLIA [id number] [address] [place] Glucose Test strip (U) [Mass/Vol] Negative Normal Negative [facility] Comment on above: Order Comment: Speci men Type: URINE SPECIMENOrdering Facility: [facility] Address: [address] [place] [address] Performed By: #### 2 4356-8 ####LOVELL LABORATORYCLIA [id number] [place] [address] [place] Hemoglobin Ql (U) Negative Normal Negative [facility] Comment on above: Order Comment: Speci men Type: URINE SPECIMENOrdering Facility: [facility] Address: [address] [place] [address] Performed By: #### 2 4356-8 ####LOVELL LABORATORYCLIA [id number] [address] [place] Ketones Ql (U) Negative Normal Negative [facility] Comment on above: Order Comment: Speci men Type: URINE SPECIMENOrdering Facility: [facility] Address: [address] [place] [address] Performed By: #### 2 4356-8 ####LOVELL LABORATORYCLIA [id number] [address] Leukocyte esterase Test strip Ql (U) Negative Normal Negative [facility] Comment on above: Order Comment: Speci men Type: URINE SPECIMENOrdering Facility: [facility] Address: [address] [place] [address] Performed By: #### 2 4356-8 ####LOVELL LABORATORYCLIA [id number] [address] [place] Nitrite Ql (U) Negative Normal Negative [facility] Comment on above: Order Comment: Speci men Type: URINE SPECIMENOrdering Facility: [facility] Address: [address] [place] [address] Performed By: #### 2 4356-8 ####LOVELL LABORATORYCLIA [id number] [address] [place] pH (U) 6.0 [pH] Normal 5.0-8.0 [facility] Comment on above: Order Comment: Speci men Type: URINE SPECIMENOrdering Facility: [facility] Address: [address] [place] [address] Performed By: #### 2 4356-8 ####LOVELL LABORATORYCLIA [id number] [address] Protein (U) [Mass/Vol] Negative Normal Negative [facility] Comment on above: Order Comment: Speci men Type: URINE SPECIMENOrdering Facility: [facility] Address: [address] [place] [address] Performed By: #### 2 4356-8 ####LOVELL LABORATORYCLIA [id number] [place] [address] [place] [facility] [place] RBC LM.HPF (Urine sed) [#/Area] 0-3 /HPF Normal 0-3 /HPF [facility] Comment on above: Order Comment: Speci men Type: URINE SPECIMENOrdering Facility: [facility] Address: [address] [place] [address] Performed By: #### 2 4356-8 ####[facility] LABORATORYCLIA [id number] [address] Specific gravity (U) [Rel density] 1.015 Normal 1.005-1.030 [facility] Comment on above: Order Comment: Speci men Type: URINE SPECIMENOrdering Facility: [facility] Address: [address] [place] [address] Performed By: #### 2 4356-8 ####[facility] LABORATORYCLIA [id number] [address] Urobilinogen Ql (U) 0.2 EU/dL Normal 0.2-1.0 EU/dL [facility] Comment on above: Order Comment: Speci men Type: URINE SPECIMENOrdering Facility: [facility] Address: [address] [place] [address] Performed By: #### 2 4356-8 ####[facility] CENTERCLIA [id number] [address] [place] [facility] WBC LM.HPF (Urine sed) [#/Area] 0-5 /HPF Normal 0-5 /HPF [facility] Comment on above: Order Comment: Speci men Type: URINE SPECIMENOrdering Facility: [facility] Address: [address] [place] [address] Performed By: #### 2 4356-8 ####[facility] LABORATORYCLIA [id number] [address] [place] XR CHEST 2V FRONTAL/LATon XR CHEST 2V FRONTAL/LAT * * *Final Report* * * DATE OF EXAM: Jan 25 2025 12:12PM AKX [id number] - XR CHEST 2V FRONTAL/LAT / PROCEDURE REASON: Other * * * * Physician Interpretation * * * * EXAMINATION: CHEST RADIOGRAPH (2 VIEW FRONTAL and LATERAL) CLINICAL HISTORY: Fall. Pain. MQ: XC2_6 EXAM DATE/TIME: 01/25/2025 12:12 PM COMPARISON: 04/28/2024 RESULT: Lines, tubes, and devices: None. Lungs and pleura: No pneumothorax. No gross pleural effusion. Bibasilar atelectasis. Otherwise no focal consolidation. Cardiomediastinal silhouette: Stable Bones and soft tissues: EKG wires. Left shoulder arthroplasty.. Thoracic spine degenerative changes. IMPRESSION: No gross acute radiographic abnormality. Linux Admin: [facility] Transcribe Date/Time: Jan 25 2025 12:24P Dictated by : ARVIND CAMARILLO MD This examination was interpreted and the report reviewed and electronically signed by: ARVIND CAMARILLO MD on Jan 25 2025 12:26PM EST [id number] Normal [facility] XR PELVIS 1V APon 01-25-2025 XR PELVIS 1V AP * * *Final Report* * * DATE OF EXAM: Jan 25 2025 12:12PM AKX 5239 - XR PELVIS 1V AP / PROCEDURE REASON: Pelvic fracture * * * * Physician Interpretation * * * * TECHNIQUE: XR PELVIS 1V AP EXAM DATE: 01/25/2025 12:12 PM COMPARISON STUDIES: 09/05/2024 CLINICAL HISTORY: Fall. Pain. RESULT: Hip joints maintained. No acute fracture or dislocation. SI joints maintained. Lower lumbar degenerative change. IMPRESSION: No acute abnormality Linux Admin: [facility] Transcribe Date/Time: Jan 25 2025 12:23P Dictated by : ARVIND CAMARILLO MD This examination was interpreted and the report reviewed and electronically signed by: ARVIND CAMARILLO MD on Jan 25 2025 12:24PM EST [id number] Normal [facility] CNOVon 01-24-2025 CN Office Visit (FAMPWS ) GASTON LAINEZ ([id number]) 1950 M Date Time Provider Department 01/24/25 1:40 PM LETICIA HARDING FAMPWS During your visit today, we recorded the following information about you: Pulse Blood pressure Weight 63/minute 130/78 77.6 kg Leticia Harding APRN.PROMOTIONS REPRESENTATIVE 01/24/2025 2:16 PM Signed This is a 74 year old male who presents today with: No chief complaint on file. HISTORY OF PRESENT ILLNESS: Gaston Lainez is a 74 year old male. No chief complaint on file. Gaston is a 74-year-old male with a history of dementia, presenting for evaluation of worsening symptoms following a recent fall. Dementia: - Notable worsening of dementia symptoms since Tuesday. - Increased paranoia and fear of falling when sitting down. Fall: - Recent fall out of bed, possibly due to feet getting tangled. - Sustained a laceration requiring stitches; no CT scan performed at the time. - No significant bleeding reported from the laceration. - No nausea or emesis post-fall. - Increased unsteadiness when walking since the fall. - Mild headache with pressure when coughing. - Chronic double vision, making it difficult to assess changes. - Chronic dizziness, with slight worsening post-fall. PAST MEDICAL HISTORY: PAST MEDICAL HISTORY Diagnosis Date Abnormal stress echocardiogram 01/14/2021 01/21/[address] Barragan: right dominant. LMT min luminal, LAD mild diffuse, LCx mild luminal with large caliber nondominant vessel extending into a single large obtuse marginal branch, proximal vessel is mildly calcified +mild luminal irreg, RCA 40% Large-caliber dominant vessel: moderate calcification from the proximal to mid vessel, mild diffuse ectatic disease proximal.The ostium of the Anxiety state, unspecified 10/24/2007 Benign paroxysmal positional vertigo one remote episode Bunion Chronic obstructive asthma, unspecified 10/24/2007 Depression likely bipolar disorder Depressive disorder, not elsewhere classified 10/24/2007 Generalized anxiety disorder 10/24/2007 History of marijuana use 03/02/2016 Quit 08/2015 Hypermobility syndrome Mild coronary artery disease Mixed hyperlipidemia 11/27/2008 Nontraumatic rupture of tendons of biceps (long head) R, 10/07 L OCD (obsessive compulsive disorder) Pneumonia, organism unspecified(486) 11/2001 bilateral: cleared Primary insomnia 03/02/2016 Senile dementia (HCC) 2022 PAST SURGICAL HISTORY Procedure Laterality Date COLONOSCOPY FLX DX W/COLLJ SPEC WHEN PFRMD 09/21/2006 repeat due 2017 COLONOSCOPY FLX DX W/COLLJ SPEC WHEN PFRMD 04/22/2020 Colonoscopy COLSC FLX W/RMVL OF TUMOR POLYP LESION SNARE TQ 04/19/2017 2 adenomatous polyps - ESOPHAGOGASTRODUODENOSCOPY TRANSORAL DIAGNOSTIC 07/23/2019 EGD EXCISION OF BENIGN LESION GREATER THAN 1.25 CM 03/29/2000 tongue and lip lesions: fibroma; nose: sebaceous hyperplasia PAST SURGICAL HISTORY OF repair flexor tendon left thumb PAST SURGICAL HISTORY OF Left 09/03/2019 Dr. medina [facility]: left CTR and tenosynovectomy at wrist level PAST SURGICAL HISTORY OF Left 04/29/2021 Left median nerve release at the elbow and forearm, Dontae Medina MD, [facility] ROTATOR CUFF REPAIR 2008 left ROTATOR CUFF REPAIR 04/22/2016 right VASECTOMY UNI/BI SPX W/POSTOP SEMEN EXAMS ALLERGIES Patient has no known allergies. MEDICATIONS Current Outpatient Medications Medication Sig busPIRone (BUSPAR) 15 mg tablet Take 1 tablet by mouth two times a day. donepezil (ARICEPT) 5 mg tablet Take 1 tablet by mouth daily with breakfast. memantine (NAMENDA) 10 mg tablet Take 1 tablet by mouth two times a day. OLANZapine (ZYPREXA) 2.5 mg tablet use 1 to 2 tablets at bedtime fluticasone-salmeterol (WIXELA INHUB) 250-50 mcg/dose inhaler Inhale 1 Puff as instructed two times a day. atorvastatin (LIPITOR) 40 mg tablet Take 1 tablet by mouth once daily. tamsulosin (FLOMAX) 0.4 mg Take 1 capsule by mouth daily at bedtime. Patient should start on April 02, 2024. Tadalafil (CIALIS) 10 mg tablet 1-2 tabs daily as needed albuterol HFA (VENTOLIN HFA) 90 mcg/actuation inhaler Inhale 2 Puffs as instructed every 4 hours as needed for wheezing/shortness of breath. MULTIVITAMIN ORAL Take by mouth once daily. polyethylene glycol 3350 (MIRALAX) 17 gram/dose powder 17g (1 scoop) with 8 oz daily as needed for constipation No current facility-administered medications for this visit. FAMILY HISTORY Problem Relation Age of Onset Heart Mother age 66, CA, SLE other (lupus) Mother diagnosed age 49 Heart Father age 84, CHF other (G6PD) Sister G6PD Diabetes Brother 1/2 brother Hypertension Brother 1/2 brother Colon Cancer Brother rectal cancer? 1/2 brother Social History Tobacco Use Smoking status: Former Current packs/day: 0.00 Average packs/day: 0.5 pack (more content not included)... Normal [facility] 01-24-2025 CNPN Telephone (INTMWS) GASTON LAINEZ ([id number]) 1950 M Date Time Provider Department 01/24/25 LETICIA HARDING INTMWS During your visit today, we recorded the following information about you: Felecia Saba LPN 01/24/2025 2:26 PM Signed Electronic PA rec'd and completed for diazepam Felecia Saba LPN 01/24/2025 2:44 PM Signed rior authorization approved Payer: [employer] [phone] Approval Details Authorized from August 29, 2024 to February 23, 2025 Electronic appeal: Not supported View History Notes Time User Attachment Attachment received from payer. 01/24/2025 2:41 PM Cchs, Rx Priorauth In Document Pharmacy Benefits Open Encounter SHANIKA LAINEZ W - AMD25 BB CDH-N [id number] ([facility]) Covered: Retail, Mail Order Unknown: Specialty, Long-Term Care BIN: [id number] : 1950 Group ID: [id number] PCN: [id number] Legal sex: M Group name: [id number] Address: [address] [place], [place] [id number] Medication Being Authorized diazePAM (VALIUM) 2 mg tablet Take 1 tablet by mouth one time only for 1 dose. 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 To be filled at: e- [facility]/pharmacy #[id number] [place] [address] - [address] - [phone] [phone] Allergies As of Date: 01/24/2025 (No Known Allergies) Date Reviewed: 01/24/2025 Reviewed by: Shereen Bill MA - Fully Assessed Reason for Visit: Insurance Authorization [[id number]] Prescriptions as of 01/24/2025 - diazePAM (VALIUM) 2 mg tablet Take 1 tablet by mouth one time only for 1 dose. - busPIRone (BUSPAR) 15 mg tablet Take 1 tablet by mouth two times a day. - donepezil (ARICEPT) 5 mg tablet Take 1 tablet by mouth daily with breakfast. - memantine (NAMENDA) 10 mg tablet Take 1 tablet by mouth two times a day. - OLANZapine (ZYPREXA) 2.5 mg tablet use 1 to 2 tablets at bedtime - fluticasone-salmeterol (WIXELA INHUB) 250-50 mcg/dose inhaler Inhale 1 Puff as instructed two times a day. - atorvastatin (LIPITOR) 40 mg tablet Take 1 tablet by mouth once daily. - tamsulosin (FLOMAX) 0.4 mg Take 1 capsule by mouth daily at bedtime. Patient should start on April 02, 2024. - Tadalafil (CIALIS) 10 mg tablet 1-2 tabs daily as needed - albuterol HFA (VENTOLIN HFA) 90 mcg/actuation inhaler Inhale 2 Puffs as instructed every 4 hours as needed for wheezing/shortness of breath. - MULTIVITAMIN ORAL Take by mouth once daily. 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] 10/24/2007 Minor depression [F32.A] 10/24/2007 Generalized anxiety disorder [F41.1] 10/24/2007 Disorders of bursae and tendons in shoulder reg*11/27/2008 12/02/2011 Mixed hyperlipidemia [E78.2] 11/27/2008 OCD (obsessive compulsive disorder) [F42.9] Disorder of prostate [N42.9] 02/24/2016 Primary insomnia [F51.01] 03/02/2016 History of marijuana use [F12.91] 03/02/2016 Well adult exam [Z00.00] 03/02/2016 Incomplete tear of left rotator cuff [M75.112] 03/29/2016 Arthritis, 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] 02/28/2017 Radicular pain of left lower extremity [M54.10] 03/10/2017 Acute midline low back pain with left-sided sci*03/10/2017 Screening for colon cancer [Z12.11] 03/10/2017 Colon cancer screening [Z12.11] 03/28/2017 Tubular adenoma of colon [D12.6] 01/30/2018 Vertigo [R42] 03/22/2018 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 FH: prostate cancer [Z80.42] 03/10/2020 SOB (shortness of breath) [R06.02] 01/06/2021 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 of miri*01/14/2021 Abnormal stress echocardiogram [R94.39] 01/14/2021 03/12/2021 H/O cardiac catheterization [Z98.890] 03/12/2021 Palpitations [R00.2] 03/12/2021 SVT (supraventricular tachycardia) ([facility]) [I47.1*10/09/2021 BPH with obstruction/lower urinary tract sympto*06/06/2022 Visual hallucinations [R44.1] 09/06/2022 GERD (gastroesophageal reflux disease) [K21.9] 12/20/2022 S/P reverse total shoulder arthroplasty, left [*01/03/2023 Major depressive disorder, recurrent, mild (HCC*03/14/2023 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] 08/30/2023 Thoracic spine pain [M54.6] 02/14/2024 Encounter Status:Closed by FELECIA SABA on 01/24/25 [facility] NITESHGASTON PETERS ([id number]) 1950 M Date Time Provider Department 01/24/25 [facility] During your visit today, we recorded the following information about you: Leticia Harding, [employer] 01/24/2025 11:35 AM Signed Patient was seen at [facility] January 16, 2025 for blunt injury and fall causing laceration. Patient has a history of asthma. Rolled out of bed about an hour ago striking his left elbow and face on the floor causing a laceration. He is on no blood thinners not even aspirin. He has had no vomiting, no headache, no neck pain. They are unsure of his last tetanus shot. He has a 1 to 2 inch laceration along his left eyebrow. Mild bleeding. No hematoma. Blood pressure 175/97, heart rate 67, respirations 18, oxygen saturation 100% The laceration above the left eyebrow was repaired With subcutaneous linear sutures. Closed with 3 simple interrupted sutures. Tetanus shot updated. Sutures to come out in 7 days. Allergies As of Date: 01/24/2025 (No Known Allergies) Date Reviewed: 12/20/2024 Reviewed by: Jacqueline He LPN - Fully Assessed Prescriptions as of 01/24/2025 - busPIRone (BUSPAR) 15 mg tablet Take 1 tablet by mouth two times a day. - donepezil (ARICEPT) 5 mg tablet Take 1 tablet by mouth daily with breakfast. - memantine (NAMENDA) 10 mg tablet Take 1 tablet by mouth two times a day. - OLANZapine (ZYPREXA) 2.5 mg tablet use 1 to 2 tablets at bedtime - fluticasone-salmeterol (WIXELA INHUB) 250-50 mcg/dose inhaler Inhale 1 Puff as instructed two times a day. - atorvastatin (LIPITOR) 40 mg tablet Take 1 tablet by mouth once daily. - tamsulosin (FLOMAX) 0.4 mg Take 1 capsule by mouth daily at bedtime. Patient should start on April 02, 2024. - Tadalafil (CIALIS) 10 mg tablet 1-2 tabs daily as needed - albuterol HFA (VENTOLIN HFA) 90 mcg/actuation inhaler Inhale 2 Puffs as instructed every 4 hours as needed for wheezing/shortness of breath. - MULTIVITAMIN ORAL Take by mouth once daily. 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] 10/24/2007 Minor depression [F32.A] 10/24/2007 Generalized anxiety disorder [F41.1] 10/24/2007 Disorders of bursae and tendons in shoulder reg*11/27/2008 12/02/2011 Mixed hyperlipidemia [E78.2] 11/27/2008 OCD (obsessive compulsive disorder) [F42.9] Disorder of prostate [N42.9] 02/24/2016 Primary insomnia [F51.01] 03/02/2016 History of marijuana use [F12.91] 03/02/2016 Well adult exam [Z00.00] 03/02/2016 Incomplete tear of left rotator cuff [M75.112] 03/29/2016 Arthritis, 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] 02/28/2017 Radicular pain of left lower extremity [M54.10] 03/10/2017 Acute midline low back pain with left-sided sci*03/10/2017 Screening for colon cancer [Z12.11] 03/10/2017 Colon cancer screening [Z12.11] 03/28/2017 Tubular adenoma of colon [D12.6] 01/30/2018 Vertigo [R42] 03/22/2018 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 FH: prostate cancer [Z80.42] 03/10/2020 SOB (shortness of breath) [R06.02] 01/06/2021 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 of miri*01/14/2021 Abnormal stress echocardiogram [R94.39] 01/14/2021 03/12/2021 H/O cardiac catheterization [Z98.890] 03/12/2021 Palpitations [R00.2] 03/12/2021 SVT (supraventricular tachycardia) (HCC) [I47.1*10/09/2021 BPH with obstruction/lower urinary tract sympto*06/06/2022 Visual hallucinations [R44.1] 09/06/2022 GERD (gastroesophageal reflux disease) [K21.9] 12/20/2022 S/P reverse total shoulder arthroplasty, left [*01/03/2023 Major depressive disorder, recurrent, mild (HCC*03/14/2023 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 Medical Records Department [address] [place] [id number] Emergency Department Summary 01/16/25 MR#: [id number] Acct: [id number] Name: SHANIKA LAINEZ Rep #: [id number] : 1950 74 From: Jose Juan Christine MD PCP: Leticia Harding, [facility] Status:REG ER Location: ED HPI History of Present Illness Chief Complaint: Laceration Informant: patient and spouse/S.O. Onset/Context/Timing Onset: Today Mechanism/Context: Blunt Injury and Fall Maximum Severity: Mild Associated Symptoms Associated Symptoms: Negative for Parasthesias, Weakness, Loss of function, Inability to ambulate, Loss of consciousness or Amnesia Narrative Narrative: 74-year-old male history of asthma. Rolled out of bed about an hour ago striking his left eyebrow and face on the floor causing laceration. No LOC. He is on no blood thinners not even aspirin. No vomiting. No headache. No neck pain. states he is at his baseline. He denies any other injuries. They are unsure of his last tetanus. Tetanus Immunization: Unknown Prior similar symptoms: No Recent Illness/Hospitalization: No PFSH PFS Medical History Asthma Home Medications ???Medication ???Instructions ???Recorded ???Last Taken ???Type quetiapine 25 mg tablet 25 - 50 mg PO QHS PRN Sleep Unknown History albuterol sulfate 90 mcg/actuation 2 puff inhalation Q4H PRN PRN Sl eep 10/25/20 Unknown History aerosol inhaler fluticasone 250 mcg-salmeterol 50 1 puff inhalation BID 10/25/20 Un known History mcg/dose blistr powdr for inhalation albuterol sulfate 90 mcg/actuation 2 puff inhalation Q4H PRN PRN Unknown Rx aerosol inhaler (Ventolin HFA) Wheezing ##1 prednisone 20 mg tablet 60 mg (3 x 20 mg) PO DAILY #15 09/21 Unknown Rx TABLETS Allergy/AdvReac Type Severity Reaction Status Date / Time No Known Allergies Allergy Verified 01/16/25 01:12 Social History Smoking Status: Former smoker ROS ROS ED ROS Narrative Denies recent illness. Denies headache. Denies nausea or vomiting. Constitutional Constitutional ED: Denies chills or fever(s) Eyes Eyes: Denies blurry vision ENT ENT ED: Denies ear pain Cardiovascular Cardiovascular: Denies chest pain Respiratory/Chest Respiratory/Chest: Denies cough or dyspnea Gastrointestinal Gastrointestinal: Denies abdominal pain, nausea or vomiting Genitourinary Genitourinary ED: Denies dysuria or hematuria Musculoskeletal Musculoskeletal: Denies arthralgias Integumentary Denies abscess Neurologic Neurologic: Denies headache(s) Psychiatric Psychiatric: Denies anxiety Endocrine Endocrinology: Denies cold intolerance Hematologic/Lymphatic Hematologic/Lymphatic: Denies easy bleeding, easy bruising or lymphadenopathy Allergic/Immunologic Allergic/Immunologic ED: Denies mouth swelling, tongue swelling or urticaria EXAM Physical Exam Narrative Exam Narrative: Well-appearing 74-year-old male. Vital signs stable afebrile. Sitting upright in bed. at bedside. No distress. H EENT exam pupils round reactive light. Extra motions are intact. He has about a 1 to 2 inch laceration along his left eyebrow. Mild bleeding. No significant hematoma. No bony tenderness. Extraocular motions are intact. There is no other swelling or trauma to his face. Scalp is nontender without hematoma. Scant moist mucous membranes. C-spine and trachea are nontender. Back and spine are nontender. Lungs are clear. Heart regular rhythm rate about 70 no murmur. Chest wall ribs nontender. Abdomen soft nontender. Pelvic girdle intact. Moving all 4 extremities. Normal senior art director strength. Normal dorsi plantarflexion. He is able to flex and extend his hips and knees and ankles. No deformity. Neurologically he is awake and alert. He is answering questions following commands. He knows his . He knows the president Danyelle states. He knows where he is at. GCS is 15. Const Vital Signs: 01/16/25 01:10 Temperature 97.6 F L Temperature Source Oral Pulse Rate 67 Respiratory Rate 16 Blood Pressure 175/97 H Blood Pressure Mean 123 Pulse Ox 100 Oxygen Delivery Method Room Air Positive well nourished and well developed; Negative for obese, cachectic, contractures or unkempt General Appearance ED: well developed and NAD; Negative for unkempt, cachectic or contractures Nutritional Appearance: Negative for cachectic or obese HEENT HEENT Narrative: Left eyebrow 1 to 2 inch laceration. trauma Eyes PERRL and EOMs intact bilaterally Neck full ROM General: Negative for tenderness Chest Wall inspection of chest normal and palpation of chest normal Resp normal respiratory effort and clear to auscultation (more content not included)... Normal [facility] PVR ANK PRESS JEAN PIERRE VAS LABon 01-07-2025 PVR ANK PRESS [facility]AN [facility] LAB Non-Invasive Vascular Laboratory [facility] Lower Extremity Arterial Physiology Study Bilateral/Complete Date of service/time: 01/07/2025 12:26:21 PM Name: MR. GASTON LAINEZ Date of : 1950 Age: 74 years Gender: M Medical History Tobacco: Former PAD: Yes Clinical Indication Decreased pulses. TECHNIQUE -------- An arterial physiological examination was performed, including measurement of blood pressures using continuous wave Doppler and recording of plethysmographic with or without Doppler waveforms at the below-mentioned limb segments. FINDINGS -------- RIGHT SIDE AT REST Right Doppler Waveforms Dorsalis pedis: Multiphasic. Post tibial: Multiphasic. Right Pressures Brachial: 125 mmHg Ankle dorsalis pedis: 152 mmHg YOBANI: 1.20 Ankle posterior tibial: 160 mmHg YOBANI: 1.26 Digit: 83 mmHg Right PVR Waveforms Ankle: Normal. LEFT SIDE AT REST Left Doppler Waveforms Dorsalis pedis: Monophasic. Post tibial: Monophasic. Left Pressures Brachial: 127 mmHg Ankle dorsalis pedis: 123 mmHg YOBANI: 0.97 Ankle posterior tibial: 120 mmHg YOBANI: 0.94 Digit: 80 mmHg Left PVR Waveforms Ankle: Mildly dampened. IMPRESSION RIGHT SIDE Resting right ankle brachial index: 1.26 Right toe brachial index: 0.65 Normal ankle brachial index at rest in the right leg. Abnormal toe brachial index at rest is evidence of peripheral artery disease. Right ankle: Normal at rest. LEFT SIDE Resting left ankle brachial index: 0.97 Left toe brachial index: 0.63 Abnormal toe brachial index at rest is evidence of peripheral artery disease. Borderline abnormal ankle brachial index at rest. Left ankle: Borderline abnormal at rest. Technologist: Sofia Polanco T Ordering physician: VIRI BEASLEY Interpreting physician: Donovan Reyes MD, MAYELIN Final CC [employer] [facility] Image : [id number] [email or web address] See Link below for Image Normal [facility] CNOVon 12-20-2024 CNOV Office Visit (PODIWS ) GASTON LAINEZ ([id number]) 1950 M Date Time Provider Department 12/20/24 2:45 PM VIRI BEASLEY During your visit today, we recorded the following information about you: Jacqueline He LPN 12/22/2024 12:54 PM Signed AMB ROOMING INTAKE FLOWSHEET DATA Pain Pain Level: 7 Pain Location: Toe Description: Sharp Duration Units: Months Frequency: Intermittent Intervention/Comfort measure: Reposition, Relaxation Patient presents with: Left Foot - Established Patient, Pain: Discuss 2nd toe amputation Jacqueline He COVER MARKERVesta GarciaViri prasad 12/20/2024 3:49 PM Signed A circulation study for your feet will be arranged; please follow the instructions provided to schedule this test at [place] [facility] (or as directed) so your blood flow can be assessed prior to surgery. You have elected to have a left second toe amputation; the procedure will be performed under light sedation at [facility] as planned. After surgery, you will be placed in a surgical shoe; you should expect to wear it for about 2 to 3 weeks or until healed Use a walker or cane for balance during recovery, as instructed; a physical therapy evaluation may be set up before surgery to ensure you are comfortable with its use. Arrange for someone to drive you home after your surgery. Follow all pain management and medication instructions provided with your discharge instructions after the procedure. Viri Beasley 12/22/2024 12:54 PM Signed Subjective Gaston is a 74-year-old male presenting for follow-up of left second toe pain. Left Second Toe Pain: - Pain due to rubbing between the first and second toes. - Uses a Band-Aid for padding to alleviate pain; unable to walk without it. - Reports a callus on the left second toe. - Previous visit on August 28, 2024, discussed hammertoes and arthritis. - X-rays from July showed a large bunion on the left foot and deformity on the right foot. Lifestyle: - Retired, previously worked in a [employer]. - Exercises at the gym 3-4 days a week. Musculoskeletal: (+) left foot pain PAST MEDICAL HISTORY Diagnosis Date Abnormal stress echocardiogram 01/14/2021 01/21/[address] [place]: right dominant. LMT min luminal, LAD mild diffuse, LCx mild luminal with large caliber nondominant vessel extending into a single large obtuse marginal branch, proximal vessel is mildly calcified +mild luminal irreg, RCA 40% Large-caliber dominant vessel: moderate calcification from the proximal to mid vessel, mild diffuse ectatic disease proximal.The ostium of the Anxiety state, unspecified 10/24/2007 Benign paroxysmal positional vertigo one remote episode Bunion Chronic obstructive asthma, unspecified 10/24/2007 Depression likely bipolar disorder Depressive disorder, not elsewhere classified 10/24/2007 Generalized anxiety disorder 10/24/2007 History of marijuana use 03/02/2016 Quit 08/2015 Hypermobility syndrome Mild coronary artery disease Mixed hyperlipidemia 11/27/2008 Nontraumatic rupture of tendons of biceps (long head) R, 10/07 L OCD (obsessive compulsive disorder) Pneumonia, organism unspecified(486) 11/2001 bilateral: cleared Primary insomnia 03/02/2016 Senile dementia (HCC) 2022 Current Outpatient Medications Medication Sig Dispense Refill busPIRone (BUSPAR) 15 mg tablet Take 1 tablet by mouth two times a day. 180 tablet 1 donepezil (ARICEPT) 5 mg tablet Take 1 tablet by mouth daily with breakfast. 90 tablet 1 memantine (NAMENDA) 10 mg tablet Take 1 tablet by mouth two times a day. 180 tablet 1 OLANZapine (ZYPREXA) 2.5 mg tablet use 1 to 2 tablets at bedtime 180 tablet 2 fluticasone-salmeterol (WIXELA INHUB) 250-50 mcg/dose inhaler Inhale 1 Puff as instructed two times a day. 3 Each 3 atorvastatin (LIPITOR) 40 mg tablet Take 1 tablet by mouth once daily. 90 tablet 3 tamsulosin (FLOMAX) 0.4 mg Take 1 capsule by mouth daily at bedtime. Patient should start on April 02, 2024. 90 capsule 3 Tadalafil (CIALIS) 10 mg tablet 1-2 tabs daily as needed 30 tablet 2 albuterol HFA (VENTOLIN HFA) 90 mcg/actuation inhaler Inhale 2 Puffs as instructed every 4 hours as needed for wheezing/shortness of breath. 1 Each 5 MULTIVITAMIN ORAL Take by mouth once daily. polyethylene glycol 3350 (MIRALAX) 17 gram/dose powder 17g (1 scoop) with 8 oz daily as needed for constipation 225 g 5 No current facility-administered medications for this visit. Family History Problem Relation Age of Onset Heart Mother age 66, CA, SLE other (lupus) Mother diagnosed age 49 Heart Father age 84, CHF other (G6PD) Sister G6PD Diabetes Brother 1/2 brother Hypertension Brother 1/2 brother Colon Cancer Brother rectal cancer? 1/2 brother ALLERGIES No Known Allergies Objective There were no vitals taken for this visit. (more content not included)... Normal [facility] CNOVon 11-06-2024 CNOV Office Visit (PSWSTR ) GASTON LAINEZ ([id number]) 1950 M Date Time Provider Department 11/06/24 10:00 AM ALEXUS NAIK PSWSTR During your visit today, we recorded the following information about you: Pulse Respiration Blood pressure Weight 71/minute 16/minute 136/82 77 kg Alexus Naki, WILFREDO.[employer] REPRESENTATIVE 11/14/2024 6:28 PM Signed FOLLOW UP - PSYCHIATRIC PROGRESS NOTE PATIENT: Gaston Lainez DATE: November 06, 2024 Visit Type:In person All information is from Patient report except when noted. This evaluation is NOT intended for forensic, disability or child custody purposes. CC: Presenting today for follow up regarding psychiatric medication management. HPI: Treatment Plan from Last Visit on 07/10/2024: TREATMENT PLAN: Continue Namenda, Aricept and Zyprexa as ordered. Continue Buspar but ok to take only once a day if 2nd dose not needed Consult placed for speech therapy for cognitive speech decline/recall deficit 4. Follow up 3 months. 5. Reach out if questions or concerns prior. Today Gaston shares that he is doing well. His is also here with him for the appointment. Eating a lot better. His weight has improved. Patient is happy with his mood, anxiety and sleep. Patient recently was struggling with more physical health concerns. He is recovering from a sinus infection. Had pneumonia prior to that. When he was taking medication for that, noticed the he experienced more delusions. He denies any dizziness or falls. Has not been able to go work out recently. Working out is a good coping skill for him. He went twice for speech therapy but felt that it was not beneficial for the patient. Has been driving locally. No episodes of irritability. He is consistent in taking his medications. Denies any side effects that he is concerned about currently. Interval Progress: Improved PATIENT DATA: Generalized Anxiety Disorder Scale (MARTELL-7) 04/23/2021 09/20/2023 12/27/2023 MARTELL - 7 SCORES Score 19 21 7 (0-4) minimal anxiety, (5-9) mild anxiety, (10-14) moderate anxiety, (15-21) severe anxiety Patient Health Questionnaire (PHQ-9) 05/04/2023 09/20/2023 12/27/2023 PHQ-9 Score 14 21 10 (0-4) minimal depression, (5-9) mild depression, (10-14) moderate depression, (15-19) moderately severe depression, (20-27) severe depression PAST MEDICAL HISTORY Diagnosis Date Abnormal stress echocardiogram 01/14/2021 01/21/[address] [place]: right dominant. LMT min luminal, LAD mild diffuse, LCx mild luminal with large caliber nondominant vessel extending into a single large obtuse marginal branch, proximal vessel is mildly calcified +mild luminal irreg, RCA 40% Large-caliber dominant vessel: moderate calcification from the proximal to mid vessel, mild diffuse ectatic disease proximal.The ostium of the Anxiety state, unspecified 10/24/2007 Benign paroxysmal positional vertigo one remote episode Bunion Chronic obstructive asthma, unspecified 10/24/2007 Depression likely bipolar disorder Depressive disorder, not elsewhere classified 10/24/2007 Generalized anxiety disorder 10/24/2007 History of marijuana use 03/02/2016 Quit 08/2015 Hypermobility syndrome Mild coronary artery disease Mixed hyperlipidemia 11/27/2008 Nontraumatic rupture of tendons of biceps (long head) 12 R, 2/09 L OCD (obsessive compulsive disorder) Pneumonia, organism unspecified(486) 11/2001 bilateral: cleared Primary insomnia 03/02/2016 Senile dementia (HCC) 2022 PAST SURGICAL HISTORY Procedure Laterality Date COLONOSCOPY FLX DX W/COLLJ SPEC WHEN PFRMD 09/21/2006 repeat due 2017 COLONOSCOPY FLX DX W/COLLJ SPEC WHEN PFRMD 04/22/2020 Colonoscopy COLSC FLX W/RMVL OF TUMOR POLYP LESION SNARE TQ 04/19/2017 2 adenomatous polyps - ESOPHAGOGASTRODUODENOSCOPY TRANSORAL DIAGNOSTIC 07/23/2019 EGD EXCISION OF BENIGN LESION GREATER THAN 1.25 CM 03/29/2000 tongue and lip lesions: fibroma; nose: sebaceous hyperplasia PAST SURGICAL HISTORY OF repair flexor tendon left thumb PAST SURGICAL HISTORY OF Left 09/03/2019 Dr. medina [facility]: left CTR and tenosynovectomy at wrist level PAST SURGICAL HISTORY OF Left 04/29/2021 Left median nerve release at the elbow and forearm, Dontae Medina MD, [facility] ROTATOR CUFF REPAIR 2008 left ROTATOR CUFF REPAIR 04/22/2016 right VASECTOMY UNI/BI SPX W/POSTOP SEMEN EXAMS ALLERGIES No Known Allergies Current Outpatient Medications on File Prior to Visit Medication Sig amoxicillin-clavulanate potassium (AUGMENTIN) 875-125 mg per tablet Take 1 tablet by mouth every 12 hours for 10 days. fluticasone-salmeterol (WIXELA INHUB) 250-50 mcg/dose inhaler Inhale 1 Puff as instructed two times a day. memantine (NAMENDA) 10 mg tablet Take 1 tablet by mouth two times a day. OLANZapine (ZYPREXA) 2.5 mg tablet use 1 to 2 tablets at b (more content not included)... Normal [facility] CNOVon 10-29-2024 CNOV Office Visit (FAMPWS ) GASTON LAINEZ ([id number]) 1950 M Date Time Provider Department 10/29/24 10:20 AM LETICIA HARDING FAMPWS During your visit today, we recorded the following information about you: Temperature Pulse Blood pressure Weight 99 degrees 66/minute 122/86 77.1 kg Mariia Hardingdiallo Dick APRN.CNP 10/29/2024 10:41 AM Signed This is a 74 year old male who presents today with: Patient presents with: 6 Month Exam HISTORY OF PRESENT ILLNESS: Gaston Lainez is a 74 year old male. Patient presents with: 6 Month Exam Sick for a week No fever or chills + Head congestion + PND No H/A + Body aches No SOB + cough- some productivity- yellow No nausea No diarrhea + really tired PAST MEDICAL HISTORY: PAST MEDICAL HISTORY Diagnosis Date Abnormal stress echocardiogram 01/14/2021 01/21/[address] Barragan: right dominant. LMT min luminal, LAD mild diffuse, LCx mild luminal with large caliber nondominant vessel extending into a single large obtuse marginal branch, proximal vessel is mildly calcified +mild luminal irreg, RCA 40% Large-caliber dominant vessel: moderate calcification from the proximal to mid vessel, mild diffuse ectatic disease proximal.The ostium of the Anxiety state, unspecified 10/24/2007 Benign paroxysmal positional vertigo one remote episode Bunion Chronic obstructive asthma, unspecified 10/24/2007 Depression likely bipolar disorder Depressive disorder, not elsewhere classified 10/24/2007 Generalized anxiety disorder 10/24/2007 History of marijuana use 03/02/2016 Quit 08/2015 Hypermobility syndrome Mild coronary artery disease Mixed hyperlipidemia 11/27/2008 Nontraumatic rupture of tendons of biceps (long head) 12/ R, 2/09 L OCD (obsessive compulsive disorder) Pneumonia, organism unspecified(486) 11/2001 bilateral: cleared Primary insomnia 03/02/2016 Senile dementia (HCC) 2022 PAST SURGICAL HISTORY Procedure Laterality Date COLONOSCOPY FLX DX W/COLLJ SPEC WHEN PFRMD 09/21/2006 repeat due 2017 COLONOSCOPY FLX DX W/COLLJ SPEC WHEN PFRMD 04/22/2020 Colonoscopy COLSC FLX W/RMVL OF TUMOR POLYP LESION SNARE TQ 04/19/2017 2 adenomatous polyps - ESOPHAGOGASTRODUODENOSCOPY TRANSORAL DIAGNOSTIC 07/23/2019 EGD EXCISION OF BENIGN LESION GREATER THAN 1.25 CM 03/29/2000 tongue and lip lesions: fibroma; nose: sebaceous hyperplasia PAST SURGICAL HISTORY OF repair flexor tendon left thumb PAST SURGICAL HISTORY OF Left 09/03/2019 [facility] tiffany [facility]: left CTR and tenosynovectomy at wrist level PAST SURGICAL HISTORY OF Left 04/29/2021 Left median nerve release at the elbow and forearm, Dontae Medina MD, [facility] ROTATOR CUFF REPAIR 2008 left ROTATOR CUFF REPAIR 04/22/2016 right VASECTOMY UNI/BI SPX W/POSTOP SEMEN EXAMS ALLERGIES Patient has no known allergies. MEDICATIONS Current Outpatient Medications Medication Sig benzonatate (TESSALON PERLE) 100 mg capsule Take 1 capsule by mouth three times a day as needed for cough for up to 7 days. fluticasone-salmeterol (WIXELA INHUB) 250-50 mcg/dose inhaler Inhale 1 Puff as instructed two times a day. memantine (NAMENDA) 10 mg tablet Take 1 tablet by mouth two times a day. OLANZapine (ZYPREXA) 2.5 mg tablet use 1 to 2 tablets at bedtime donepezil (ARICEPT) 5 mg tablet TAKE 1 TABLET BY MOUTH EVERY DAY WITH BREAKFAST atorvastatin (LIPITOR) 40 mg tablet Take 1 tablet by mouth once daily. busPIRone (BUSPAR) 15 mg tablet Take 1 tablet by mouth two times a day. tamsulosin (FLOMAX) 0.4 mg Take 1 capsule by mouth daily at bedtime. Patient should start on April 02, 2024. Tadalafil (CIALIS) 10 mg tablet 1-2 tabs daily as needed albuterol HFA (VENTOLIN HFA) 90 mcg/actuation inhaler Inhale 2 Puffs as instructed every 4 hours as needed for wheezing/shortness of breath. MULTIVITAMIN ORAL Take by mouth once daily. polyethylene glycol 3350 (MIRALAX) 17 gram/dose powder 17g (1 scoop) with 8 oz daily as needed for constipation No current facility-administered medications for this visit. FAMILY HISTORY Problem Relation Age of Onset Heart Mother age 66, CA, SLE other (lupus) Mother diagnosed age 49 Heart Father age 84, CHF other (G6PD) Sister G6PD Diabetes Brother 1/2 brother Hypertension Brother 1/2 brother Colon Cancer Brother rectal cancer? 1/2 brother Social History Tobacco Use Smoking status: Former Current packs/day: 0.00 Average packs/day: 0.5 packs/day for 9.0 years (4.5 ttl pk-yrs) Types: Cigarettes Start date: 11/01/1967 Quit date: 10/31/1976 Years since quittin.0 Smokeless tobacco: Never Vaping Use Vaping status: Never Used Substance Use Topics Alcohol use: Yes Alcohol/week: 7.0 standard drinks of alcohol Types: 7 Glasses of wine per week Comment: daily Drug use: Not Currently Comment: jose raul (more content not included)... Normal [facility] CNOVon 10-24-2024 CNOV Office Visit (UCWSTR ) GASTON LAINEZ ([id number]) 1950 M Date Time Provider Department 10/24/24 12:15 PM ERUM BENNETT [facility] During your visit today, we recorded the following information about you: Temperature Pulse Respiration Blood pressure 99.2 degrees 80/minute 16/minute 108/64 Weight 78.6 kg Erum Bennett PA-C 10/24/2024 12:44 PM Signed This note was created using [employer]. Subjective Gaston Lainez is a 74 year old male. Patient is a 74-year-old male who complains of congestion and cough that he has been experiencing for the past 1 day. Patient denies fever, chills, myalgia, sinus pressure, ear pain or sore throat. Patient reports no dyspnea or SOB. Patient does have a history of pneumonia and is concerned for same. Patient has a remote history of asthma and stopped smoking in 1976. Review of Systems HENT: Positive for congestion. Respiratory: Positive for cough. All other systems reviewed and are negative. Objective BP 108/64 Pulse 80 Temp 37.3 ?C (99.2 ?F) Resp 16 Wt 78.6 kg (173 lb 4.5 oz) SpO2 97% BMI 25.59 kg/m? Physical Exam Vitals and nursing note reviewed. Constitutional: Appearance: Normal appearance. He is normal weight. HENT: Head: Normocephalic and atraumatic. Right Ear: Tympanic membrane, ear canal and external ear normal. Left Ear: Tympanic membrane, ear canal and external ear normal. Nose: Nose normal. Mouth/Throat: Mouth: Mucous membranes are moist. Pharynx: Oropharynx is clear. Eyes: Extraocular Movements: Extraocular movements intact. Conjunctiva/sclera: Conjunctivae normal. Pupils: Pupils are equal, round, and reactive to light. Cardiovascular: Rate and Rhythm: Normal rate and regular rhythm. Pulses: Normal pulses. Heart sounds: Normal heart sounds. Pulmonary: Effort: Pulmonary effort is normal. Breath sounds: Normal breath sounds. Musculoskeletal: Cervical back: Normal range of motion and neck supple. Skin: General: Skin is warm and dry. Capillary Refill: Capillary refill takes less than 2 seconds. Neurological: General: No focal deficit present. Mental Status: He is alert and oriented to person, place, and time. Psychiatric: Mood and Affect: Mood normal. Behavior: Behavior normal. Thought Content: Thought content normal. Judgment: Judgment normal. Assessment and Plan Unremarkable physical exam findings as noted above. Patient was provided with a prescription for Tessalon 100 mg and supportive care instructions were discussed. Patient and his express excellent understanding of same. CLINICAL IMPRESSION: Acute URI ASSESSMENT/PLAN: 1. Acute URI - ICD9: 465.9, ICD10: J06.9 - BENZONATATE 100 MG CAPSULE Erum Bennett PA-C Allergies As of Date: 10/24/2024 (No Known Allergies) Date Reviewed: 10/24/2024 Reviewed by: Raina Harrison MA - Fully Assessed Reason for Visit: Chest Congestion [236] Cmt: cough x 1 day Primary Visit Diagnosis:Acute URI [J06.9] Order(s):benzonatate (TESSALON PERLE) 100 mg capsuleTake 1 capsule by mouth three times a day as needed for cough for up to 7 days.Disp: 21 capsuleRfl: 0 Prescriptions as of 10/24/2024 - benzonatate (TESSALON PERLE) 100 mg capsule Take 1 capsule by mouth three times a day as needed for cough for up to 7 days. - fluticasone-salmeterol (WIXELA INHUB) 250-50 mcg/dose inhaler Inhale 1 Puff as instructed two times a day. - memantine (NAMENDA) 10 mg tablet Take 1 tablet by mouth two times a day. - OLANZapine (ZYPREXA) 2.5 mg tablet use 1 to 2 tablets at bedtime - donepezil (ARICEPT) 5 mg tablet TAKE 1 TABLET BY MOUTH EVERY DAY WITH BREAKFAST - atorvastatin (LIPITOR) 40 mg tablet Take 1 tablet by mouth once daily. - busPIRone (BUSPAR) 15 mg tablet Take 1 tablet by mouth two times a day. - tamsulosin (FLOMAX) 0.4 mg Take 1 capsule by mouth daily at bedtime. Patient should start on April 02, 2024. - Tadalafil (CIALIS) 10 mg tablet 1-2 tabs daily as needed - albuterol HFA (VENTOLIN HFA) 90 mcg/actuation inhaler Inhale 2 Puffs as instructed every 4 hours as needed for wheezing/shortness of breath. - MULTIVITAMIN ORAL Take by mouth once daily. 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 Normal [facility] Bacteria Wnd Culton 09-14-19 25 Bacteria identified Cx Nom (Wound) ORGANISM ID: [id number] Rare skin con GRAM STAIN: No organisms seen No Polymorphonuclear Leukocytes Normal [facility] Comment on above: Performed By: #### [phone] ####[facility] LABCLIA [id number] [address] [address] [facility] CNOVon 09-14-2024 CNOV Office Visit (UCWSTR ) GASTON LAINEZ ([id number]) 1950 M Date Time Provider Department 09/14/24 7:45 AM GLORIA MORROW [facility] During your visit today, we recorded the following information about you: Temperature Pulse Respiration Blood pressure 97.3 degrees 73/minute 21/minute 120/84 Weight 78.2 kg Gloria Morrow MD 09/14/2024 8:15 AM Signed Patient presents with: Mass: Lump in groin area x 4 days HPI: Skin Lesion: Location: Right groin Duration: probably a few days, mentioned to yesterday Pruritis/Pain: not really tender Change: Drainage/blister/pustule/ulc eration: had some drainage when wiped with alcohol Treatment: none MEDICATIONS: OLANZapine (ZYPREXA) 2.5 mg tablet use 1 to 2 tablets at bedtime meloxicam (MOBIC) 15 mg tablet Take 1 tablet by mouth once daily. donepezil (ARICEPT) 5 mg tablet TAKE 1 TABLET BY MOUTH EVERY DAY WITH BREAKFAST memantine (NAMENDA) 10 mg tablet Take 1 tablet by mouth two times a day. Week One: take 1/2 tablet (5mg) in the morning Week Two: take 1/2 tablet (5mg) in the morning and take 1/2 tablet (5mg) in the evening Week Three: take 1 tablet (10mg) in the morning and take 1/2 tablet (5mg) in the evening Week Four: take 1 tablet (10mg) in the morning and take 1 tablet (10mg) in the evening -this is the full dose (Patient taking differently: Take 10 mg by mouth two times a day.) atorvastatin (LIPITOR) 40 mg tablet Take 1 tablet by mouth once daily. busPIRone (BUSPAR) 15 mg tablet Take 1 tablet by mouth two times a day. tamsulosin (FLOMAX) 0.4 mg Take 1 capsule by mouth daily at bedtime. Patient should start on April 02, 2024. Tadalafil (CIALIS) 10 mg tablet 1-2 tabs daily as needed fluticasone-salmeterol (WIXELA INHUB) 250-50 mcg/dose inhaler Inhale 1 Puff as instructed two times a day. albuterol HFA (VENTOLIN HFA) 90 mcg/actuation inhaler Inhale 2 Puffs as instructed every 4 hours as needed for wheezing/shortness of breath. MULTIVITAMIN ORAL Take by mouth once daily. polyethylene glycol 3350 (MIRALAX) 17 gram/dose powder 17g (1 scoop) with 8 oz daily as needed for constipation sulfamethoxazole-trimethopri m (BACTRIM DS) 800-160 mg per tablet Take 1 tablet by mouth two times a day for 5 days. ALLERGIES: ALLERGIES No Known Allergies VITALS: BP 120/84 Pulse 73 Temp 36.3 ?C (97.3 ?F) Resp 21 Wt 78.2 kg (172 lb 6.4 oz) SpO2 99% BMI 25.46 kg/m? PE: Pleasant, in no acute distress. Accompanied by his . : right perineal-scrotal junction mass which is uncomfortable with palpation. There is 1.5cm ulceration with serosanguinous drainage. The 3cm x 2cm subcutaneous mass feels somewhat purulent. There is little superficial erythema. ASSESSMENT/PLAN: 1. Abscess of groin, right - ICD9: 682.2, ICD10: L02.214 Start - SULFAMETHOXAZOLE 800 MG-TRIMETHOPRIM 160 MG TABLET The lesion does not seem readily drainable today. He should be followed for improvement and confirm this is a simple abscess without ulcerating neoplasm. - CONSULT TO GENERAL SURGERY (may follow up with primary care for wound check if unable to get an appointment next week). - BACTERIAL CULTURE AND GRAM STAIN, ABSCESS AND WOUND (AEROBIC CULTURE) Gloria Morrow MD Allergies As of Date: 09/14/2024 (No Known Allergies) Date Reviewed: 09/14/2024 Reviewed by: Kaelyn Ponce MA - Fully Assessed Reason for Visit: Mass [64] Cmt: Lump in groin area x 4 days Primary Visit Diagnosis:Abscess of groin, right [L02.214] Order(s):sulfamethoxazole-tr imethoprim (BACTRIM DS) 800-160 mg per tabletTake 1 tablet by mouth two times a day for 5 days.Disp: 10 tabletRfl: 0 CONSULT TO GENERAL SURGERY [9060] Order #: [id number]: 1 FUTURE BACTERIAL CULTURE AND GRAM STAIN, ABSCESS AND WOUND (AEROBIC CULTURE) [SQWCUL] Order #: [id number]. #:[id number] Prescriptions as of 09/14/2024 - sulfamethoxazole-trimethopri m (BACTRIM DS) 800-160 mg per tablet Take 1 tablet by mouth two times a day for 5 days. - OLANZapine (ZYPREXA) 2.5 mg tablet use 1 to 2 tablets at bedtime - meloxicam (MOBIC) 15 mg tablet Take 1 tablet by mouth once daily. - donepezil (ARICEPT) 5 mg tablet TAKE 1 TABLET BY MOUTH EVERY DAY WITH BREAKFAST - memantine (NAMENDA) 10 mg tablet Take 1 tablet by mouth two times a day. Week One: take 1/2 tablet (5mg) in the morning Week Two: take 1/2 tablet (5mg) in the morning and take 1/2 tablet (5mg) in the evening Week Three: take 1 tablet (10mg) in the morning and take 1/2 tablet (5mg) in the evening Week Four: take 1 tablet (10mg) in the morning and take 1 tablet (10mg) in the evening -this is the full dose - atorvastatin (LIPITOR) 40 mg tablet Take 1 tablet by mouth once daily. - busPIRone (BUSPAR) 15 mg tablet Take 1 tablet by mouth two times a day. - tamsulosin (FLOMAX) 0.4 mg Take 1 capsule by mouth daily at bedtime. Patient po (more content not included)... Normal [facility] CNOVon 09-10-2024 CNOV Office Visit (FAMPWS ) GASTON LAINEZ ([id number]) 1950 M Date Time Provider Department 09/10/24 2:40 PM LETICIA HARDING During your visit today, we recorded the following information about you: Temperature Pulse Blood pressure Weight 98.9 degrees 72/minute 126/78 81.6 kg Leticia Harding, [employer] REPRESENTATIVE 09/10/2024 3:01 PM Signed This is a 73 year old male who presents today with: Patient presents with: Pneumonia: Follow up HISTORY OF PRESENT ILLNESS: Gaston Lainez is a 73 year old male. Patient presents with: Pneumonia: Follow up Feeling better Less cough Much more energy No headaches No body aches PAST MEDICAL HISTORY: PAST MEDICAL HISTORY Diagnosis Date Abnormal stress echocardiogram 01/14/2021 01/21/[address] Barragan: right dominant. LMT min luminal, LAD mild diffuse, LCx mild luminal with large caliber nondominant vessel extending into a single large obtuse marginal branch, proximal vessel is mildly calcified +mild luminal irreg, RCA 40% Large-caliber dominant vessel: moderate calcification from the proximal to mid vessel, mild diffuse ectatic disease proximal.The ostium of the Anxiety state, unspecified 10/24/2007 Benign paroxysmal positional vertigo one remote episode Bunion Chronic obstructive asthma, unspecified 10/24/2007 Depression likely bipolar disorder Depressive disorder, not elsewhere classified 10/24/2007 Generalized anxiety disorder 10/24/2007 History of marijuana use 03/02/2016 Quit 08/2015 Hypermobility syndrome Mild coronary artery disease Mixed hyperlipidemia 11/27/2008 Nontraumatic rupture of tendons of biceps (long head) R, 2/09 L OCD (obsessive compulsive disorder) Pneumonia, organism unspecified(486) 11/2001 bilateral: cleared Primary insomnia 03/02/2016 Senile dementia (HCC) 2022 PAST SURGICAL HISTORY Procedure Laterality Date COLONOSCOPY FLX DX W/COLLJ SPEC WHEN PFRMD 09/21/2006 repeat due 2016 COLONOSCOPY FLX DX W/COLLJ SPEC WHEN PFRMD 04/22/2020 Colonoscopy COLSC FLX W/RMVL OF TUMOR POLYP LESION SNARE TQ 04/19/2017 2 adenomatous polyps - ESOPHAGOGASTRODUODENOSCOPY TRANSORAL DIAGNOSTIC 07/23/2019 EGD EXCISION OF BENIGN LESION GREATER THAN 1.25 CM 03/29/2000 tongue and lip lesions: fibroma; nose: sebaceous hyperplasia PAST SURGICAL HISTORY OF repair flexor tendon left thumb PAST SURGICAL HISTORY OF Left 09/03/2019 Dr. medina [facility]: left CTR and tenosynovectomy at wrist level PAST SURGICAL HISTORY OF Left 04/29/2021 Left median nerve release at the elbow and forearm, Dontae Medina MD, [facility] ROTATOR CUFF REPAIR 2009 left ROTATOR CUFF REPAIR 04/22/2016 right VASECTOMY UNI/BI SPX W/POSTOP SEMEN EXAMS ALLERGIES Patient has no known allergies. MEDICATIONS Current Outpatient Medications Medication Sig meloxicam (MOBIC) 15 mg tablet Take 1 tablet by mouth once daily. donepezil (ARICEPT) 5 mg tablet TAKE 1 TABLET BY MOUTH EVERY DAY WITH BREAKFAST memantine (NAMENDA) 10 mg tablet Take 1 tablet by mouth two times a day. Week One: take 1/2 tablet (5mg) in the morning Week Two: take 1/2 tablet (5mg) in the morning and take 1/2 tablet (5mg) in the evening Week Three: take 1 tablet (10mg) in the morning and take 1/2 tablet (5mg) in the evening Week Four: take 1 tablet (10mg) in the morning and take 1 tablet (10mg) in the evening -this is the full dose (Patient taking differently: Take 10 mg by mouth two times a day.) atorvastatin (LIPITOR) 40 mg tablet Take 1 tablet by mouth once daily. busPIRone (BUSPAR) 15 mg tablet Take 1 tablet by mouth two times a day. tamsulosin (FLOMAX) 0.4 mg Take 1 capsule by mouth daily at bedtime. Patient should start on April 02, 2024. Tadalafil (CIALIS) 10 mg tablet 1-2 tabs daily as needed OLANZapine (ZYPREXA) 2.5 mg tablet use 1 to 2 tablets at bedtime fluticasone-salmeterol (WIXELA INHUB) 250-50 mcg/dose inhaler Inhale 1 Puff as instructed two times a day. albuterol HFA (VENTOLIN HFA) 90 mcg/actuation inhaler Inhale 2 Puffs as instructed every 4 hours as needed for wheezing/shortness of breath. MULTIVITAMIN ORAL Take by mouth once daily. polyethylene glycol 3350 (MIRALAX) 17 gram/dose powder 17g (1 scoop) with 8 oz daily as needed for constipation benzonatate (TESSALON PERLE) 100 mg capsule Take 1 capsule by mouth three times a day as needed for cough for up to 15 days. (Patient not taking: Reported on 09/10/2024) No current facility-administered medications for this visit. FAMILY HISTORY Problem Relation Age of Onset Heart Mother age 66, CA, SLE other (lupus) Mother diagnosed age 49 Heart Father age 84, CHF other (G6PD) Sister G6PD Diabetes Brother 1/2 brother Hypertension Brother 1/2 brother Colon Cancer Brother rectal cancer? 1/2 brother Social History Tobacco Use Smoking status (more content not included)... Normal [facility] CNOVon 09-05-2024 CNOV Office Visit (ORMDNA ) GASTON LAINEZ ([id number]) 1950 M Date Time Provider Department 09/05/24 1:00 PM LUIS EDUARDO RICO During your visit today, we recorded the following information about you: Weight Height 76.6 kg 1.753 m Luis Eduardo Rico PA-C 09/05/2024 1:38 PM Signed HISTORY OF PRESENT ILLNESS: Gaston is a 73 year old male. He is here for evaluation of Left hip pain. Patient has had recent pneumonia with decreased activity and immobility. He reports on and off pain for 2-3 weeks, but the last 3 days have been more consistently painful. Has been using tylenol and ibuprofen with good pain control. Recovering well from pneumonia with one day left of antibiotics. Denies groin pain, numbness and tingling to LLE. No other concerns today. Injury:No Pain: Yes LOCATION: lateral left hip PAIN SCALE: 7 on a scale of 0-10 PAIN CHARACTER: sharp DURATION: (How long have you had the pain?) 3 days AGGRAVATING FACTORS: activity, arising from a sitting position, and lying ALLEVIATING FACTORS: medications - NSAIDs Onset: gradual and progressive Quality:sharp Swelling: Patient does not note any swelling of the joint. Radicular Symptoms:No Activities: walking Restriction: none Progression: Constant Previous treatment: medication (Ibuprofen and Tylenol) PT:No physical therapy program has been initiated. MEDICATIONS Current Outpatient Medications on File Prior to Visit Medication Sig levoFLOXacin (LEVAQUIN) 750 mg tablet Take 1 tablet by mouth once daily for 7 days. benzonatate (TESSALON PERLE) 100 mg capsule Take 1 capsule by mouth three times a day as needed for cough for up to 15 days. donepezil (ARICEPT) 5 mg tablet TAKE 1 TABLET BY MOUTH EVERY DAY WITH BREAKFAST memantine (NAMENDA) 10 mg tablet Take 1 tablet by mouth two times a day. Week One: take 1/2 tablet (5mg) in the morning Week Two: take 1/2 tablet (5mg) in the morning and take 1/2 tablet (5mg) in the evening Week Three: take 1 tablet (10mg) in the morning and take 1/2 tablet (5mg) in the evening Week Four: take 1 tablet (10mg) in the morning and take 1 tablet (10mg) in the evening -this is the full dose (Patient taking differently: Take 10 mg by mouth two times a day.) atorvastatin (LIPITOR) 40 mg tablet Take 1 tablet by mouth once daily. busPIRone (BUSPAR) 15 mg tablet Take 1 tablet by mouth two times a day. tamsulosin (FLOMAX) 0.4 mg Take 1 capsule by mouth daily at bedtime. Patient should start on April 02, 2024. Tadalafil (CIALIS) 10 mg tablet 1-2 tabs daily as needed OLANZapine (ZYPREXA) 2.5 mg tablet use 1 to 2 tablets at bedtime fluticasone-salmeterol (WIXELA INHUB) 250-50 mcg/dose inhaler Inhale 1 Puff as instructed two times a day. albuterol HFA (VENTOLIN HFA) 90 mcg/actuation inhaler Inhale 2 Puffs as instructed every 4 hours as needed for wheezing/shortness of breath. MULTIVITAMIN ORAL Take by mouth once daily. polyethylene glycol 3350 (MIRALAX) 17 gram/dose powder 17g (1 scoop) with 8 oz daily as needed for constipation No current facility-administered medications on file prior to visit. ALLERGIES ALLERGIES No Known Allergies PAST MEDICAL HISTORY PAST MEDICAL HISTORY Diagnosis Date Abnormal stress echocardiogram 01/14/2021 01/21/[address] Barragan: right dominant. LMT min luminal, LAD mild diffuse, LCx mild luminal with large caliber nondominant vessel extending into a single large obtuse marginal branch, proximal vessel is mildly calcified +mild luminal irreg, RCA 40% Large-caliber dominant vessel: moderate calcification from the proximal to mid vessel, mild diffuse ectatic disease proximal.The ostium of the Anxiety state, unspecified 10/24/2007 Benign paroxysmal positional vertigo one remote episode Bunion Chronic obstructive asthma, unspecified 10/24/2007 Depression likely bipolar disorder Depressive disorder, not elsewhere classified 10/24/2007 Generalized anxiety disorder 10/24/2007 History of marijuana use 03/02/2016 Quit 08/2015 Hypermobility syndrome Mild coronary artery disease Mixed hyperlipidemia 11/27/2008 Nontraumatic rupture of tendons of biceps (long head) R, 10/07 L OCD (obsessive compulsive disorder) Pneumonia, organism unspecified(486) 11/2001 bilateral: cleared Primary insomnia 03/02/2016 Senile dementia (HCC) 2022 PAST SURGICAL HISTORY PAST SURGICAL HISTORY Procedure Laterality Date COLONOSCOPY FLX DX W/COLLJ SPEC WHEN PFRMD 09/21/2006 repeat due 2016 COLONOSCOPY FLX DX W/COLLJ SPEC WHEN PFRMD 04/22/2020 Colonoscopy COLSC FLX W/RMVL OF TUMOR POLYP LESION SNARE TQ 04/19/2017 2 adenomatous polyps - ESOPHAGOGASTRODUODENOSCOPY TRANSORAL DIAGNOSTIC 07/23/2019 EGD EXCISION OF BENIGN LESION GREATER THAN 1.25 CM 03/29/2000 tongue and lip lesions: fibroma; nose: sebaceous hyperplasia PAST SURGICAL HISTORY OF repair flexor te (more content not included)... Normal [facility] No Panel InformationOrdered By: [facility]cf Provider on 09-05-2024 [facility] No Panel Informationon 09-05 Radiology Study observation (narrative) [facility] XR HIP 3V PELV+ AP/LAT LTon 09-05-2024 XR HIP 3V PELV+ AP/LAT LT * * *Final Report* * * DATE OF EXAM: Sep 05 2024 12:43PM [facility] 5351 - XR HIP 3V PELV+ AP/LAT LT / PROCEDURE REASON: M25.552-Pain in left hip * * * * Physician Interpretation * * * * EXAM(s): XR HIP 3V PELV+ AP/LAT LT HISTORY: Indication: Pain in left hip TECHNIQUE: Images: XR HIP 3V PELV+ AP/LAT LT Comparison: None. RESULT: Findings: Pelvis: No fractures or dislocations are seen. Mild to moderate narrowing of both hip joints Left hip: No fractures or dislocations are seen. IMPRESSION: Findings as discussed under Results portion of report. Linux Admin: AMILCAR Transcribe Date/Time: Sep 05 2024 4:03P Dictated by : ZANA PALENCIA DO This examination was interpreted and the report reviewed and electronically signed by: ZANA PALENCIA DO on Sep 05 2024 4:03PM EST [id number] [facility] XR LEG FRONTL HIP-ANKL MECH AXISon 09-05-2024 XR LEG FRONTL HIP-ANKL MECH AXIS * * *Final Report* * * DATE OF EXAM: Sep 05 2024 12:43PM BARON 5216 - XR LEG FRONTL HIP-ANKL MECH AXIS / PROCEDURE REASON: M25.552-Pain in left hip * * * * Physician Interpretation * * * * EXAM(s): XR LEG FRONTL HIP-ANKL MECH AXIS EXAM DATE/TIME: 09/05/2024 12:43 PM HISTORY: 73 years old Clinical information: Pain in left hip Pt states he woke up one day with left hip pain and unable to walk well. TECHNIQUE: Images: XR LEG FRONTL HIP-ANKL MECH AXIS Comparison: None. EXAM: XR LEG FRONTAL SCANOGRAM LENGTHS, XR LEG FRONTL HIP-ANKL MECH AXIS RESULT: Findings: AP view of the full lengths of the bilateral lower extremities was obtained with cm ruler markings. Measurements will be obtained by the ordering service. Bone density appears decreased. No fractures or dislocations are seen. IMPRESSION: Findings as discussed in results portion of report Linux Admin: PSCB Transcribe Date/Time: Sep 05 2024 4:03P Dictated by : ZANA PALENCIA DO This examination was interpreted and the report reviewed and electronically signed by: ZANA PALENCIA DO on Sep 05 2024 4:04PM EST [id number] Normal [facility] XR Lower extremity - bilater al AP W standingon 09-05-2024 IMPRESSION: Findings as discussed in results portion of report Linux Admin: AMILCAR Transcribe Date/Time: Sep 05 2024 4:03P Dictated by : ZANA PALENCIA DO This examination was interpreted and the report reviewed and electronically signed by: ZANA PALENCIA DO on Sep 05 2024 4:04PM EST [facility] * * *Final Report* * * DATE OF EXAM: Sep 05 2024 12:43PM BARON 5216 - XR LEG FRONTL HIP-ANKL MECH AXIS / PROCEDURE REASON: M25.552-Pain in left hip * * * * Physician Interpretation * * * * EXAM(s): XR LEG FRONTL HIP-ANKL MECH AXIS EXAM DATE/TIME: 09/05/2024 12:43 PM HISTORY: 73 years old Clinical information: Pain in left hip Pt states he woke up one day with left hip pain and unable to walk well. TECHNIQUE: Images: XR LEG FRONTL HIP-ANKL MECH AXIS Comparison: None. EXAM: XR LEG FRONTAL SCANOGRAM LENGTHS, XR LEG FRONTL HIP-ANKL MECH AXIS RESULT: Findings: AP view of the full lengths of the bilateral lower extremities was obtained with cm ruler markings. Measurements will be obtained by the ordering service. Bone density appears decreased. No fractures or dislocations are seen. [facility] Provider, Aby Snell - 09/05/2024 * * *Final Report* * * DATE OF EXAM: Sep 05 2024 12:43PM MDO 5216 - XR LEG FRONTL HIP-ANKL MECH AXIS / PROCEDURE REASON: M25.552-Pain in left hip * * * * Physician Interpretation * * * * EXAM(s): XR LEG FRONTL HIP-ANKL MECH AXIS EXAM DATE/TIME: 09/05/2024 12:43 PM HISTORY: 73 years old Clinical information: Pain in left hip Pt states he woke up one day with left hip pain and unable to walk well. TECHNIQUE: Images: XR LEG FRONTL HIP-ANKL MECH AXIS Comparison: None. EXAM: XR LEG FRONTAL SCANOGRAM LENGTHS, XR LEG FRONTL HIP-ANKL MECH AXIS RESULT: Findings: AP view of the full lengths of the bilateral lower extremities was obtained with cm ruler markings. Measurements will be obtained by the ordering service. Bone density appears decreased. No fractures or dislocations are seen. IMPRESSION IMPRESSION: Findings as discussed in results portion of report Linux Admin: PSCB Transcribe Date/Time: Sep 05 2024 4:03P Dictated by : ZANA PALENCIA DO This examination was interpreted and the report reviewed and electronically signed by: ZANA PALENCIA DO on Sep 05 2024 4:04PM EST [facility] XR Pelvis and Hip - left AP and Lateral frogon 09-05-2024 IMPRESSION: Findings as discussed under Results portion of report. Linux Admin: PSCBrea Transcribe Date/Time: Sep 05 2024 4:03P Dictated by : ZANA PALENCIA DO This examination was interpreted and the report reviewed and electronically signed by: ZANA PALENCIA DO on Sep 05 2024 4:03PM EST [facility] * * *Final Report* * * DATE OF EXAM: Sep 05 2024 12:43PM BARON 5351 - XR HIP 3V PELV+ AP/LAT LT / PROCEDURE REASON: M25.552-Pain in left hip * * * * Physician Interpretation * * * * EXAM(s): XR HIP 3V PELV+ AP/LAT LT HISTORY: Indication: Pain in left hip TECHNIQUE: Images: XR HIP 3V PELV+ AP/LAT LT Comparison: None. RESULT: Findings: Pelvis: No fractures or dislocations are seen. Mild to moderate narrowing of both hip joints Left hip: No fractures or dislocations are seen. [facility] * * *Final Report* * * DATE OF EXAM: Sep 05 2024 12:43PM MDAnastasiia 5351 - XR HIP 3V PELV+ AP/LAT LT / PROCEDURE REASON: M25.552-Pain in left hip * * * * Physician Interpretation * * * * EXAM(s): XR HIP 3V PELV+ AP/LAT LT HISTORY: Indication: Pain in left hip TECHNIQUE: Images: XR HIP 3V PELV+ AP/LAT LT Comparison: None. RESULT: Findings: Pelvis: No fractures or dislocations are seen. Mild to moderate narrowing of both hip joints Left hip: No fractures or dislocations are seen. IMPRESSION IMPRESSION: Findings as discussed under Results portion of report. Linux Admin: AMILCAR Transcribe Date/Time: Sep 05 2024 4:03P Dictated by : ZANA PALENCIA DO This examination was interpreted and the report reviewed and electronically signed by: ZANA PALENCIA DO on Sep 05 2024 4:03PM [facility] CNOVon 08-30-2024 CNOV Office Visit (FAMPWS ) TALBronwynGASTON Yen ([id number]) 1950 M Date Time Provider Department 08/30/24 4:20 PM [facility] During your visit today, we recorded the following information about you: Temperature Pulse Blood pressure Weight 98.9 degrees 81/minute 116/72 78 kg Leticia Harding APRN.CNP 08/30/2024 4:27 PM Signed This is a 73 year old male who presents today with: Patient presents with: Acute Visit: Cough and head congestion for 1 week HISTORY OF PRESENT ILLNESS: Gaston Farshad Lainez is a 73 year old male. Patient presents with: Acute Visit: Cough and head congestion for 1 week Sick with head congestion for a week Moving into chest Coughing up light yellow sputum all day and night No fever or chills No headache Some body ache Feels tired PAST MEDICAL HISTORY: PAST MEDICAL HISTORY Diagnosis Date Abnormal stress echocardiogram 01/14/2021 01/21/[address] Barragan: right dominant. LMT min luminal, LAD mild diffuse, LCx mild luminal with large caliber nondominant vessel extending into a single large obtuse marginal branch, proximal vessel is mildly calcified +mild luminal irreg, RCA 40% Large-caliber dominant vessel: moderate calcification from the proximal to mid vessel, mild diffuse ectatic disease proximal.The ostium of the Anxiety state, unspecified 10/24/2007 Benign paroxysmal positional vertigo one remote episode Bunion Chronic obstructive asthma, unspecified 10/24/2007 Depression likely bipolar disorder Depressive disorder, not elsewhere classified 10/24/2007 Generalized anxiety disorder 10/24/2007 History of marijuana use 03/02/2016 Quit 08/2015 Hypermobility syndrome Mild coronary artery disease Mixed hyperlipidemia 11/27/2008 Nontraumatic rupture of tendons of biceps (long head) R, 10/07 L OCD (obsessive compulsive disorder) Pneumonia, organism unspecified(486) 11/2001 bilateral: cleared Primary insomnia 03/02/2016 Senile dementia (HCC) 2022 PAST SURGICAL HISTORY Procedure Laterality Date COLONOSCOPY FLX DX W/COLLJ SPEC WHEN PFRMD 09/21/2006 repeat due 2016 COLONOSCOPY FLX DX W/COLLJ SPEC WHEN PFRMD 04/22/2020 Colonoscopy COLSC FLX W/RMVL OF TUMOR POLYP LESION SNARE TQ 04/19/2017 2 adenomatous polyps - ESOPHAGOGASTRODUODENOSCOPY TRANSORAL DIAGNOSTIC 07/23/2019 EGD EXCISION OF BENIGN LESION GREATER THAN 1.25 CM 03/29/2000 tongue and lip lesions: fibroma; nose: sebaceous hyperplasia PAST SURGICAL HISTORY OF repair flexor tendon left thumb PAST SURGICAL HISTORY OF Left 09/03/2019 Dr. medina [facility]: left CTR and tenosynovectomy at wrist level PAST SURGICAL HISTORY OF Left 04/29/2021 Left median nerve release at the elbow and forearm, Dontae Medina MD, [facility] ROTATOR CUFF REPAIR 2008 left ROTATOR CUFF REPAIR 04/22/2016 right VASECTOMY UNI/BI SPX W/POSTOP SEMEN EXAMS ALLERGIES Patient has no known allergies. MEDICATIONS Current Outpatient Medications Medication Sig donepezil (ARICEPT) 5 mg tablet TAKE 1 TABLET BY MOUTH EVERY DAY WITH BREAKFAST memantine (NAMENDA) 10 mg tablet Take 1 tablet by mouth two times a day. Week One: take 1/2 tablet (5mg) in the morning Week Two: take 1/2 tablet (5mg) in the morning and take 1/2 tablet (5mg) in the evening Week Three: take 1 tablet (10mg) in the morning and take 1/2 tablet (5mg) in the evening Week Four: take 1 tablet (10mg) in the morning and take 1 tablet (10mg) in the evening -this is the full dose (Patient taking differently: Take 10 mg by mouth two times a day.) atorvastatin (LIPITOR) 40 mg tablet Take 1 tablet by mouth once daily. busPIRone (BUSPAR) 15 mg tablet Take 1 tablet by mouth two times a day. tamsulosin (FLOMAX) 0.4 mg Take 1 capsule by mouth daily at bedtime. Patient should start on April 02, 2024. Tadalafil (CIALIS) 10 mg tablet 1-2 tabs daily as needed OLANZapine (ZYPREXA) 2.5 mg tablet use 1 to 2 tablets at bedtime fluticasone-salmeterol (WIXELA INHUB) 250-50 mcg/dose inhaler Inhale 1 Puff as instructed two times a day. albuterol HFA (VENTOLIN HFA) 90 mcg/actuation inhaler Inhale 2 Puffs as instructed every 4 hours as needed for wheezing/shortness of breath. MULTIVITAMIN ORAL Take by mouth once daily. polyethylene glycol 3350 (MIRALAX) 17 gram/dose powder 17g (1 scoop) with 8 oz daily as needed for constipation No current facility-administered medications for this visit. FAMILY HISTORY Problem Relation Age of Onset Heart Mother age 66, CA, SLE other (lupus) Mother diagnosed age 49 Heart Father age 84, CHF other (G6PD) Sister G6PD Diabetes Brother 1/2 brother Hypertension Brother 1/2 brother Colon Cancer Brother rectal cancer? 1/2 brother Social History Tobacco Use Smoking status: Former Current packs/day: 0.00 Average packs/day: 0.5 packs/day for 9.0 years (4.5 ttl (more content not included)... Normal [facility] Trisha 08-30-2024 JUSTICEN Telephone (FAMPWS) GASTON LAINEZ ([id number]) 1950 M Date Time Provider Department 08/30/24 LETICIA HARDING During your visit today, we recorded the following information about you: Geovany Headley RN 08/30/2024 10:36 AM Signed Pts called in and reports Pts has had a cold since 08/23/24. Pt denies fever. He states he has a dag coater cough, runny nose with thin yellow nasal discharge, and SOB on exertion. Pt is scheduled with Trish Harding [employer] today at 420 pm. Allergies As of Date: 08/30/2024 (No Known Allergies) Date Reviewed: 08/28/2024 Reviewed by: Ashleigh Pittman MA - Fully Assessed Reason for Visit: Patient Update [1234] Appointment [186] Prescriptions as of 08/30/2024 - donepezil (ARICEPT) 5 mg tablet TAKE 1 TABLET BY MOUTH EVERY DAY WITH BREAKFAST - memantine (NAMENDA) 10 mg tablet Take 1 tablet by mouth two times a day. Week One: take 1/2 tablet (5mg) in the morning Week Two: take 1/2 tablet (5mg) in the morning and take 1/2 tablet (5mg) in the evening Week Three: take 1 tablet (10mg) in the morning and take 1/2 tablet (5mg) in the evening Week Four: take 1 tablet (10mg) in the morning and take 1 tablet (10mg) in the evening -this is the full dose - atorvastatin (LIPITOR) 40 mg tablet Take 1 tablet by mouth once daily. - busPIRone (BUSPAR) 15 mg tablet Take 1 tablet by mouth two times a day. - tamsulosin (FLOMAX) 0.4 mg Take 1 capsule by mouth daily at bedtime. Patient should start on April 02, 2024. - Tadalafil (CIALIS) 10 mg tablet 1-2 tabs daily as needed - OLANZapine (ZYPREXA) 2.5 mg tablet use 1 to 2 tablets at bedtime - fluticasone-salmeterol (WIXELA INHUB) 250-50 mcg/dose inhaler Inhale 1 Puff as instructed two times a day. - albuterol HFA (VENTOLIN HFA) 90 mcg/actuation inhaler Inhale 2 Puffs as instructed every 4 hours as needed for wheezing/shortness of breath. - MULTIVITAMIN ORAL Take by mouth once daily. - polyethylene glycol 3350 (MIRALAX) 17 gram/dose powder 17g (1 scoop) with 8 oz daily as needed for constipation Problem List As Of Date 08/30/2024 Noted Resolved Hypermobility syndrome [M35.7] 03/20/2007 Bunion [M21.619] 03/20/2007 COPD, mild (HCC) [J44.9] 10/24/2007 Minor depression [F32.A] 10/24/2007 Generalized anxiety disorder [F41.1] 10/24/2007 Disorders of bursae and tendons in shoulder reg*11/27/2008 12/02/2011 Mixed hyperlipidemia [E78.2] 11/27/2008 OCD (obsessive compulsive disorder) [F42.9] Disorder of prostate [N42.9] 02/24/2016 Primary insomnia [F51.01] 03/02/2016 History of marijuana use [F12.91] 03/02/2016 Well adult exam [Z00.00] 03/02/2016 Incomplete tear of left rotator cuff [M75.112] 03/29/2016 Arthritis, 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] 02/28/2017 Radicular pain of left lower extremity [M54.10] 03/10/2017 Acute midline low back pain with left-sided sci*03/10/2017 Screening for colon cancer [Z12.11] 03/10/2017 Colon cancer screening [Z12.11] 03/28/2017 Tubular adenoma of colon [D12.6] 01/30/2018 Vertigo [R42] 03/22/2018 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 FH: prostate cancer [Z80.42] 03/10/2020 SOB (shortness of breath) [R06.02] 01/06/2021 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 of miri*01/14/2021 Abnormal stress echocardiogram [R94.39] 01/14/2021 03/12/2021 H/O cardiac catheterization [Z98.890] 03/12/2021 Palpitations [R00.2] 03/12/2021 SVT (supraventricular tachycardia) (HCC) [I47.1*10/09/2021 BPH with obstruction/lower urinary tract sympto*06/06/2022 Visual hallucinations [R44.1] 09/06/2022 GERD (gastroesophageal reflux disease) [K21.9] 12/20/2022 S/P reverse total shoulder arthroplasty, left [*01/03/2023 Major depressive disorder, recurrent, mild (HCC*03/14/2023 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] 08/30/2023 Thoracic spine pain [M54.6] 02/14/2024 Encounter Status:Closed by GEOVANY HEADLEY on 08/30/24 [facility] CNOVon 08-28-2024 CNOV Office Visit (PODIWS ) GASTON LAINEZ ([id number]) 1950 M Date Time Provider Department 08/28/24 11:30 AM VIRI BEASLEY PODIWS During your visit today, we recorded the following information about you: Viri Beasley 08/30/2024 10:58 PM Signed Initial Podiatric Office Visit: Chief Complaint: This 73 year old male who presents with chief complaint:b/l foot pain HPI Patient presents to clinic for evaluation of b/l foot. Complains of pain between first and 2nd toe Often develops callus due to rubbing Treats with padding. Has custom orthotics. PAIN EVALUATION 08/28/2024 1121 Pain Level: 7 Description: Sharp Duration Units: Years Frequency: Intermittent Hemoglobin A1C (%) Date Value 11/26/2022 4.8 01/06/2021 5.3 02/28/2020 4.9 PCP: Erum Mckinley PA-C PAST MEDICAL HISTORY Diagnosis Date Abnormal stress echocardiogram 01/14/2021 01/21/[address] Barragan: right dominant. LMT min luminal, LAD mild diffuse, LCx mild luminal with large caliber nondominant vessel extending into a single large obtuse marginal branch, proximal vessel is mildly calcified +mild luminal irreg, RCA 40% Large-caliber dominant vessel: moderate calcification from the proximal to mid vessel, mild diffuse ectatic disease proximal.The ostium of the Anxiety state, unspecified 10/24/2007 Benign paroxysmal positional vertigo one remote episode Bunion Chronic obstructive asthma, unspecified 10/24/2007 Depression likely bipolar disorder Depressive disorder, not elsewhere classified 10/24/2007 Generalized anxiety disorder 10/24/2007 History of marijuana use 03/02/2016 Quit 08/2015 Hypermobility syndrome Mild coronary artery disease Mixed hyperlipidemia 11/27/2008 Nontraumatic rupture of tendons of biceps (long head) R, 10/07 L OCD (obsessive compulsive disorder) Pneumonia, organism unspecified(486) 11/2001 bilateral: cleared Primary insomnia 03/02/2016 Senile dementia (HCC) 2022 Current Outpatient Medications Medication Sig donepezil (ARICEPT) 5 mg tablet TAKE 1 TABLET BY MOUTH EVERY DAY WITH BREAKFAST memantine (NAMENDA) 10 mg tablet Take 1 tablet by mouth two times a day. Week One: take 1/2 tablet (5mg) in the morning Week Two: take 1/2 tablet (5mg) in the morning and take 1/2 tablet (5mg) in the evening Week Three: take 1 tablet (10mg) in the morning and take 1/2 tablet (5mg) in the evening Week Four: take 1 tablet (10mg) in the morning and take 1 tablet (10mg) in the evening -this is the full dose atorvastatin (LIPITOR) 40 mg tablet Take 1 tablet by mouth once daily. busPIRone (BUSPAR) 15 mg tablet Take 1 tablet by mouth two times a day. tamsulosin (FLOMAX) 0.4 mg Take 1 capsule by mouth daily at bedtime. Patient should start on April 02, 2024. Tadalafil (CIALIS) 10 mg tablet 1-2 tabs daily as needed OLANZapine (ZYPREXA) 2.5 mg tablet use 1 to 2 tablets at bedtime fluticasone-salmeterol (WIXELA INHUB) 250-50 mcg/dose inhaler Inhale 1 Puff as instructed two times a day. albuterol HFA (VENTOLIN HFA) 90 mcg/actuation inhaler Inhale 2 Puffs as instructed every 4 hours as needed for wheezing/shortness of breath. MULTIVITAMIN ORAL Take by mouth once daily. polyethylene glycol 3350 (MIRALAX) 17 gram/dose powder 17g (1 scoop) with 8 oz daily as needed for constipation No current facility-administered medications for this visit. ALLERGIES No Known Allergies PAST SURGICAL HISTORY Procedure Laterality Date COLONOSCOPY FLX DX W/COLLJ SPEC WHEN PFRMD 09/21/2006 repeat due 2016 COLONOSCOPY FLX DX W/COLLJ SPEC WHEN PFRMD 04/22/2020 Colonoscopy COLSC FLX W/RMVL OF TUMOR POLYP LESION SNARE TQ 04/19/2017 2 adenomatous polyps - ESOPHAGOGASTRODUODENOSCOPY TRANSORAL DIAGNOSTIC 07/23/2019 EGD EXCISION OF BENIGN LESION GREATER THAN 1.25 CM 03/29/2000 tongue and lip lesions: fibroma; nose: sebaceous hyperplasia PAST SURGICAL HISTORY OF repair flexor tendon left thumb PAST SURGICAL HISTORY OF Left 09/03/2019 Dr. medina [facility]: left CTR and tenosynovectomy at wrist level PAST SURGICAL HISTORY OF Left 04/29/2021 Left median nerve release at the elbow and forearm, Dontae Medina MD, [facility] ROTATOR CUFF REPAIR 2008 left ROTATOR CUFF REPAIR 04/22/2016 right VASECTOMY UNI/BI SPX W/POSTOP SEMEN EXAMS FAMILY HISTORY Problem Relation Age of Onset Heart Mother age 66, CA, SLE other (lupus) Mother diagnosed age 49 Heart Father age 84, CHF other (G6PD) Sister G6PD Diabetes Brother 1/2 brother Hypertension Brother 1/2 brother Colon Cancer Brother rectal cancer? 1/2 brother Social History Tobacco Use Smoking status: Former Current packs/day: 0.00 Average packs/day: 0.5 packs/day for 9.0 years (4.5 ttl pk-yrs) Types: Cigarettes Start date: 11/01/1967 Quit date: 10/31/1976 Years since quittin (more content not included)... Normal [facility] XR FOOT 3V AP/LAT/OBL BILon 08-28-2024 XR FOOT 3V AP/LAT/OBL JEAN PIERRE * * *Final Report* * * DATE OF EXAM: Aug 28 2024 11:06AM WOX [id number] - XR FOOT 3V AP/LAT/OBL JEAN PIERRE / PROCEDURE REASON: multiple diagnoses * * * * Physician Interpretation * * * * PROCEDURE: Bilateral feet INDICATION: .Chronic bilateral foot pain TECHNIQUE: XR FOOT 3V AP/LAT/OBL JEAN PIERRE COMPARISON: 03/30/2021 FINDINGS/ IMPRESSION: Advanced left and mild right hallux valgus. Bilateral pes planus. No fracture or dislocation. 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 No significant change. Linux Admin: PSCB Transcribe Date/Time: Sep 02 2024 8:50A Dictated by : LYNNETTE ARENAS MD This examination was interpreted and the report reviewed and electronically signed by: LYNNETTE ARENAS MD on Sep 02 2024 8:52AM EST [id number] Normal [facility] CNTHERAPYon 08-02-2024 CNTHERAPY OT/PT/Speech Visit ( SPEMML) GASTON LAINEZ ([id number]) 1950 M Date Time Provider Department 08/02/24 2:15 PM GENOVEVA OLSON Date Time Provider Department Center 08/02/2024 2:15 PM [id number] OLSON [facility] Reason for Visit: Speech Therapy [3489] Speech Discharge [3488] Primary Visit Diagnosis:Neurocognitive disorder [R41.9] Other Visit Diagnosis:Cognitive communication deficit [R41.841] Allergies As of Date: 08/02/2024 (No Known Allergies) Date Reviewed: 07/10/2024 Reviewed by: Yue Larios LPN - Fully Assessed Prescriptions as of 11/19/2024 - busPIRone (BUSPAR) 15 mg tablet Take 1 tablet by mouth two times a day. - donepezil (ARICEPT) 5 mg tablet Take 1 tablet by mouth daily with breakfast. - memantine (NAMENDA) 10 mg tablet Take 1 tablet by mouth two times a day. - OLANZapine (ZYPREXA) 2.5 mg tablet use 1 to 2 tablets at bedtime - fluticasone-salmeterol (WIXELA INHUB) 250-50 mcg/dose inhaler Inhale 1 Puff as instructed two times a day. - atorvastatin (LIPITOR) 40 mg tablet Take 1 tablet by mouth once daily. - tamsulosin (FLOMAX) 0.4 mg Take 1 capsule by mouth daily at bedtime. Patient should start on April 02, 2024. - Tadalafil (CIALIS) 10 mg tablet 1-2 tabs daily as needed - albuterol HFA (VENTOLIN HFA) 90 mcg/actuation inhaler Inhale 2 Puffs as instructed every 4 hours as needed for wheezing/shortness of breath. - MULTIVITAMIN ORAL Take by mouth once daily. - polyethylene glycol 3350 (MIRALAX) 17 gram/dose powder 17g (1 scoop) with 8 oz daily as needed for constipation Normal [facility] [id number] 07-18-2024 [id number] HNO ID: [id number] Author: GENOVEVA OLSON CCC-SLP Service: ? Author Type: Speech Language Pathologist Type: [id number] Filed: 07/18/2024 14:00 Note Text: [facility] Speech Therapy Plan of Care Certification Patient Name: Gaston Lainez : 1950 [facility] #: [id number] Date: 07/18/2024 To: Alexus Naik APRN.* From Therapist: FRANKLYN Ivey RE: Patient Certification/ Recertification Your review, approval and electronic signature are required in order to comply with Payor: MEDICARE / Plan: MEDICARE A AND B / Product Type: Medicare / regulations. The identified Speech Therapy PLAN OF CARE for the patient is as follows: R41.841 Cognitive communication deficit (primary encounter diagnosis) R41.9 Neurocognitive disorder R44.1 Visual hallucinations PLAN OF CARE: Impression: Communication deficits identified: Cognitive-Linguistic deficits RECOMMENDATION: [employer] Recommendations: Outpatient Speech Therapy Results and Recommendations Discussed With: Patient, Significant Other Prognosis: Good Good: good support system/ coping skills Goals for Episode of Care: created on 07/18/2024 through 09/16/24 COGNITIVE GOALS - Improve orientation to place, time, situation to 90 % via use of compensatory strategies with moderate assist/cues. -Utilize memory book/calendar/daily log with 90% accuracy given moderate assist. -Sequence 5-6 # units of information/steps re: ADL tasks with 90% accuracy in order to be able to correctly order the steps when performing ADLs. -Patient / Family to demonstrate understanding of need and benefit of cognitive linguistic exercises that support brain enrichment for maximum executive functioning skills and maximum independence. All goals to target the patient's overall ability to facilitate functional cognitive linguistic skills. Planned Interventions, Frequency, and Duration: Planned Treatment Interventions: Cognitive-Linguistic Training (33105, 39383, 66141), Receptive Language Training (95201, 28273), Patient / Caregiver Education/ Training, Speech Treatment (59054) Current Frequency: 1x every other week Duration: 6 weeks PLAN FOR NEXT VISIT: -Memory/recall strategies, word-finding Patient demonstrates good understanding of plan of care and treatment. The above goals and plan of care were discussed and agreed upon by patient/family. For further details regarding this patient refer to the Speech Therapy electronically documented visit dated 07/18/2024. Provider Attestation I have reviewed the treatment plan for Gaston Yen Fatou, [facility]# [id number] for the period of 07/18/24 -- 09/16/24, established on 07/18/2024. Signature certifies the need for therapy services. [facility] CNTHERAPYon 07-18-2024 CNTHERAPY OT/PT/Speech Visit ( SPEMML) GASTON LAINEZ ([id number]) 1950 M Date Time Provider Department 07/18/24 12:15 PM GENOVEVA OLSON Date Time Provider Department Center 07/18/2024 12:15 PM [id number] OLSON [facility] Reason for Visit: Speech Evaluation [1647] Primary Visit Diagnosis:Cognitive communication deficit [R41.841] Other Visit Diagnoses:Neurocognitive disorder [R41.9] Visual hallucinations [R44.1] Delusions (HCC) [F22] Mood disorder (HCC) [F39] Generalized anxiety disorder [F41.1] Allergies As of Date: 07/18/2024 (No Known Allergies) Date Reviewed: 07/10/2024 Reviewed by: Yeu Larios LPN - Fully Assessed Prescriptions as of 07/18/2024 - memantine (NAMENDA) 10 mg tablet Take 1 tablet by mouth two times a day. Week One: take 1/2 tablet (5mg) in the morning Week Two: take 1/2 tablet (5mg) in the morning and take 1/2 tablet (5mg) in the evening Week Three: take 1 tablet (10mg) in the morning and take 1/2 tablet (5mg) in the evening Week Four: take 1 tablet (10mg) in the morning and take 1 tablet (10mg) in the evening -this is the full dose - atorvastatin (LIPITOR) 40 mg tablet Take 1 tablet by mouth once daily. - busPIRone (BUSPAR) 15 mg tablet Take 1 tablet by mouth two times a day. - donepezil (ARICEPT) 5 mg tablet Take 1 tablet by mouth daily with breakfast. - tamsulosin (FLOMAX) 0.4 mg Take 1 capsule by mouth daily at bedtime. Patient should start on April 02, 2024. - Tadalafil (CIALIS) 10 mg tablet 1-2 tabs daily as needed - OLANZapine (ZYPREXA) 2.5 mg tablet use 1 to 2 tablets at bedtime - fluticasone-salmeterol (WIXELA INHUB) 250-50 mcg/dose inhaler Inhale 1 Puff as instructed two times a day. - albuterol HFA (VENTOLIN HFA) 90 mcg/actuation inhaler Inhale 2 Puffs as instructed every 4 hours as needed for wheezing/shortness of breath. - MULTIVITAMIN ORAL Take by mouth once daily. - polyethylene glycol 3350 (MIRALAX) 17 gram/dose powder 17g (1 scoop) with 8 oz daily as needed for constipation Normal [facility] 07-10-2024 [facility] Office Visit (PSWSTR ) GASTON LAINEZ ([id number]) 1950 M Date Time Provider Department 07/10/24 2:30 PM ALEXUS NAIK PSWSTR During your visit today, we recorded the following information about you: Pulse Respiration Blood pressure Weight 60/minute 16/minute 120/60 77.6 kg Alexus Naik APRN.CNP 07/16/2024 4:03 PM Signed FOLLOW UP - PSYCHIATRIC PROGRESS NOTE PATIENT: Gaston Lainez DATE: July 10, 2024 Visit Type:In person All information is from Patient report except when noted. This evaluation is NOT intended for forensic, disability or child custody purposes. IAlexus APRN.JUSTICE, personally performed the services described in this documentation. All medical record entries made by the WILFREDO student were at my direction and in my presence. I have reviewed the chart and discharge instructions (if applicable) and agree that the record reflects my personal performance and is accurate and complete. Alexus Naik APRN.CNP July 16, 2024 3:59 PM CC: Presenting today for follow up regarding psychiatric medication management. HPI: Treatment Plan from Last Visit on 05/24/24 with Ulysses Hale APRN, CNP Copied and pasted in italics below SUBJECTIVE Gaston Lainez is a 73 year old male seen today for a follow up visit. Gaston Lainez is being followed for Major neurocognitive disorder, likely multifactorial given complex history of TBI, bipolar disorder with psychotic episodes, but significant generalized cortical atrophy including hippocampal atrophy on MRI brain is concerning for a neurodegenerative condition such as Alzheimer's disease. Possibility of comorbid LBD remains but difficult to distinguish given complex history. Patient was last seen on . At that time the impression and agreed upon plan of care were as follows, included here in italics. (F03.90) Major neurocognitive disorder (HCC) Comment: Could not tolerate increased dose of Aricept due to bradycardia and fatigue. On 5 mg daily dose fatigue is improved but today he remains bradycardic. Underlying etiology likely multifactorial given complex history of TBI, bipolar disorder with psychotic episodes, but significant generalized cortical atrophy including hippocampal atrophy on MRI brain is concerning for a neurodegenerative condition such as Alzheimer's disease. Possibility of comorbid LBD remains but difficult to distinguish given complex history. Education provided on disease including course/progression, healthy lifestyle, etc. We discussed and agreed upon the following plan of care. Plan: Continue Aricept 5 mg once daily with breakfast for cognitive and behavioral symptoms of dementia. Please continue to monitor heart rate at home. I will update you on discussion of possible adjustment of Metoprolol dose to reduce effects on slowing heart rate and allow continuation of Aricept since this has been effective for cognitive/behavioral symptoms of dementia We will consider addition of Namenda in the future Look into emergency response systems to improve safety at home Cognitively healthy lifestyle. See the section below Ways to keep your brain healthy A heart healthy diet is a brain healthy diet. The MIND Diet is an evidence based diet proven to slow and protect against cognitive decline. See the section MIND Diet Guidelines below for more information. Follow up with me in 3 months Current treatment plan includes: Buspar 15 mg twice daily Zyprexa 2.5 mg 1 - 2 tablets at bedtime Aricept 5 mg daily with breakfast Initiate Namenda Estimated Creatinine Clearance: 82.2 mL/min (based on SCr of 0.83 mg/dL). (Ok for possible initiation of Namenda) Today Gaston shares that Marilynn present with patient. She reports that the medications started by Ulysses have helped with the delusions. Taking Aricept and Memantine as ordered. Denies side effects or hallucinations but admits he seems more confused or forgetful when he is tired. Remembers items better such as keys, phone, etc. When leaving the house but Gaston admits that he forgets conversations easily. This is the most bothersome to him. Still dreaming a lot but this is not new for him. States he can remember things back from grade school days but short term memory formation is more difficult. Getting good sleep with taking the Zyprexa at HS. Anxiety is better. Only needing to take Buspar once a day in the morning. Still having trouble with chores such as doing dishes, putting his chainsaw together, etc. Ongoing problem for the past few years. No worse then usual. Oriented to self and day of week but not month or year. States he becomes frustrated and gives up too quick on things at times. 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 (Now (more content not included)... Normal [facility] 12 Lead EKGon 06-18-2024 12 Lead EKG [facility] Cardiovascular Services [address] [place] [address] 12 Lead EKG 06/18/24 0827 MR#: [id number] Acct: [id number] Name: SHANIKA LAINEZ Rep #: [id number] : 1950 73 From: Shilo Ghotra MD Attending Dr: Status: DEP ER Ordering Dr: Roddy Trevino DO Date: 06/18/24 Location: ED Sex: M C Admitted: Test Reason : SHOULDER PAIN/NECK Blood Pressure : / mmHG Vent. Rate : 065 BPM Atrial Rate : 065 BPM P-R Int : 142 ms QRS Dur : 068 ms QT Int : 380 ms P-R-T Axes : 019 009 029 degrees QTc Int : 395 ms Sinus rhythm with occasional Premature ventricular complexes Septal infarct (cited on or before 28-JAN-2024) Abnormal ECG Confirmed by SHILO GHOTRA MD ([id number]), food editor BRIAN ARORA ([id number]) on 06/20/2024 9:42:59 AM Referred By: ES Confirmed By:SHILO GHOTRA MD 06/20/24 0943 Date Shilo Ghotra MD CC: Dr. Roddy Trevino DO; No Primary Care Physician Signed [facility] CNOVon 06-18-2024 CNOV Office Visit (UCWSTR ) GASTON LAINEZ ([id number]) 1950 M Date Time Provider Department 06/18/24 8:00 AM CHINO KATZ UCWSTR During your visit today, we recorded the following information about you: Temperature Pulse Respiration Blood pressure 98.1 degrees 66/minute 16/minute 132/80 Weight 77 kg Chino Katz, GEETA 06/18/2024 8:03 AM Signed 73-year-old male presents for left-sided neck pain. Patient states that he was lifting something on Tuesday and felt like a vein popped in his neck. He states that his vein is protruding more than the right side. He has never noticed this in the past. He has a little bit of pain and a small bruise present. Discussed limitations of express care, recommend evaluation in the emergency room. Patient does have more prominent jugular vein on the left, unsure of significance? But he is complaining of left-sided neck pain over that area. Recommend ER evaluation. Allergies As of Date: 06/18/2024 (No Known Allergies) Date Reviewed: 06/18/2024 Reviewed by: Raina Harrison MA - Fully Assessed Reason for Visit: Pain [78] Cmt: neck pain left side, bruising, felt like vein popped x 3 days Primary Visit Diagnosis:Procedure not carried out [Z53.9] Prescriptions as of 06/18/2024 - memantine (NAMENDA) 10 mg tablet Take 1 tablet by mouth two times a day. Week One: take 1/2 tablet (5mg) in the morning Week Two: take 1/2 tablet (5mg) in the morning and take 1/2 tablet (5mg) in the evening Week Three: take 1 tablet (10mg) in the morning and take 1/2 tablet (5mg) in the evening Week Four: take 1 tablet (10mg) in the morning and take 1 tablet (10mg) in the evening -this is the full dose - atorvastatin (LIPITOR) 40 mg tablet Take 1 tablet by mouth once daily. - busPIRone (BUSPAR) 15 mg tablet Take 1 tablet by mouth two times a day. - donepezil (ARICEPT) 5 mg tablet Take 1 tablet by mouth daily with breakfast. - tamsulosin (FLOMAX) 0.4 mg Take 1 capsule by mouth daily at bedtime. Patient should start on April 02, 2024. - Tadalafil (CIALIS) 10 mg tablet 1-2 tabs daily as needed - predniSONE (DELTASONE) 20 mg tablet Take 60 mg by mouth once daily. - OLANZapine (ZYPREXA) 2.5 mg tablet use 1 to 2 tablets at bedtime - fluticasone-salmeterol (WIXELA INHUB) 250-50 mcg/dose inhaler Inhale 1 Puff as instructed two times a day. - albuterol HFA (VENTOLIN HFA) 90 mcg/actuation inhaler Inhale 2 Puffs as instructed every 4 hours as needed for wheezing/shortness of breath. - OTC PRODUCT Take 1 tablet by mouth once daily. PREVAGEN REGULAR STRENGTH - MULTIVITAMIN ORAL Take by mouth once daily. - docusate sodium (COLACE) 100 mg capsule Take 1 capsule by mouth twice daily. 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] 10/24/2007 Minor depression [F32.A] 10/24/2007 Generalized anxiety disorder [F41.1] 10/24/2007 Disorders of bursae and tendons in shoulder reg*11/27/2008 12/02/2011 Mixed hyperlipidemia [E78.2] 11/27/2008 OCD (obsessive compulsive disorder) [F42.9] Disorder of prostate [N42.9] 02/24/2016 Primary insomnia [F51.01] 03/02/2016 History of marijuana use [F12.91] 03/02/2016 Well adult exam [Z00.00] 03/02/2016 Incomplete tear of left rotator cuff [M75.112] 03/29/2016 Arthritis, 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] 02/28/2017 Radicular pain of left lower extremity [M54.10] 03/10/2017 Acute midline low back pain with left-sided sci*03/10/2017 Screening for colon cancer [Z12.11] 03/10/2017 Colon cancer screening [Z12.11] 03/28/2017 Tubular adenoma of colon [D12.6] 01/30/2018 Vertigo [R42] 03/22/2018 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 FH: prostate cancer [Z80.42] 03/10/2020 SOB (shortness of breath) [R06.02] 01/06/2021 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 of miri*01/14/2021 Abnormal stress echocardiogram [R94.39] 01/14/2021 03/12/2021 H/O cardiac catheterization [Z98.890] 03/12/2021 Palpitations [R00.2] 03/12/2021 SVT (supraventricular tachycardia) (HCC) [I47.1*10/09/2021 BPH with obstruction/lower urinary tract sympto*06/06/2022 Visual hallucinations [R44.1] 09/06/2022 GERD (gastroesophageal reflux disease) [K21.9] 12/20/2022 S/P reverse total shoulder arthroplasty, left [*01/03/2023 Major depressive disorder, recurrent, mild (HCC*03/14/2023 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] 08/30/2023 Thoracic spine pain [M54.6] 02/14/2024 Encounter Status:Closed by CHINO KATZ on 06/18/24 Normal [facility] Chest PA and Lateralon 06-18 [facility] and Lateral [facility] [address] [place] [id number] Chest PA and Lateral MR#: [id number] Acct: [id number] Name: SHANIKA LAINEZ Rep #: [id number] : 1950 M 73 From: Tera Jain MD PCP: Care Physician,No Primary Status: [facility] ER Study: Chest PA and Lateral Date of Exam: 06/18/24 Exam# [id number] Ordering Dr: Roddy Trevino DO :[id number] STUDY: X-RAY CHEST REASON FOR EXAM: Male, 73 years old. Shortness of breath TECHNIQUE: PA and lateral views of the chest. COMPARISON: 01/28/2024 FINDINGS: The lungs are clear and expanded. There is no demonstrated pleural abnormality. Normal size heart. Normal mediastinum and michael. Normal visualized pulmonary arteries. Normal visualized aortic arch and descending thoracic aorta. Normal visualized thoracic spine. Replaced left glenohumeral joint free of complication There is no demonstrated abnormality of the visualized soft tissue structures of the upper abdomen. RAD/Chest PA and Lateral IMPRESSION: No acute pulmonary process Electronically Signed: Antoine Jain MD at 9:24 EDT , CC: Dr. Roddy Trevino DO; No Primary Care Physician Linux Admin: Signed Normal [facility] Emergency Department Summary on 06-18-2024 Emergency Department Summary [facility] Medical Records Department [address] [place] [id number] Emergency Department Summary 06/18/24 MR#: [id number] Acct: [id number] Name: SHANIKA LAINEZ Rep #: [id number] : 1950 73 From: Roddy Trevino DO PCP: Care Physician,No Primary Status:DEP ER Location: ED HPI History of Present Illness Chief Complaint: Upper Extremity Injury Informant: patient Narrative Narrative: Healthy 73-year-old male presenting to the emergency room with concern for venous neck distention. He reports that he went to the gym to workout and was doing some shoulder shrugs and noticed that the pain on the left side of his neck seem to be bulging. States that it would be with his heart. The patient states that he gets nervous and decided he needed to have this checked out. Denies any paresthesias. No weight loss. No change in breathing (history of asthma). He denies any recent weight loss. No recent insect bites. [facility] Medical History Asthma Home Medications ???Medication ???Instructions ???Recorded ???Last Taken ???Type quetiapine 25 mg tablet 25 - 50 mg PO QHS PRN Sleep 07/23/19 Unknown History albuterol sulfate 90 mcg/actuation 2 puff inhalation Q4H PRN PRN Sleep 10/25/20 Unknown History aerosol inhaler fluticasone 250 mcg-salmeterol 50 1 puff inhalation BID 10/25/20 Unknown History mcg/dose blistr powdr for inhalation albuterol sulfate 90 mcg/actuation 2 puff inhalation Q4H PRN PRN 01/28/24 Unknown Rx aerosol inhaler (Ventolin HFA) Wheezing ##1 prednisone 20 mg tablet 60 mg (3 x 20 mg) PO DAILY #15 01/28/24 Unknown Rx TABLETS Allergy/AdvReac Type Severity Reaction Status Date / Time No Known Allergies Allergy Verified 06/18/24 08:20 Social History Smoking Status: Former smoker ROS ROS ED Constitutional Constitutional ED: Denies chills or weight loss Eyes Eyes: Denies change in vision or diplopia ENT ENT ED: Denies ear pain, rhinorrhea or sore throat Cardiovascular Cardiovascular: Denies chest pain, orthopnea, palpitations or racing heartbeat Respiratory/Chest Respiratory/Chest: Denies cough, dyspnea or orthopnea Gastrointestinal Gastrointestinal: Denies abdominal pain, diarrhea, nausea or vomiting Genitourinary Genitourinary ED: Denies dysuria, hematuria or urinary frequency Musculoskeletal Musculoskeletal: Reports other Details: See history of present illness ; Denies arthralgias or myalgias Integumentary Denies abscess or rash Neurologic Neurologic: Denies headache(s) or weakness Psychiatric Psychiatric: Denies anxiety, depression, suicidal ideation or suicidal thoughts Endocrine Endocrinology: Denies polydipsia, polyphagia or polyuria Allergic/Immunologic Allergic/Immunologic ED: Denies mouth swelling, tongue swelling or urticaria EXAM Physical Exam Const Vital Signs: 06/18/24 08:20 Temperature 97.7 F L Temperature Source Oral Pulse Rate 63 Respiratory Rate 16 Blood Pressure 142/90 H Blood Pressure Mean 107 Pulse Ox 100 Oxygen Delivery Method Room Air Positive well nourished and well developed General Appearance ED: well developed HEENT Reports normocephalic, head/scalp atraumatic and moist mucous membranes Eyes PERRL and EOMs intact bilaterally Neck full ROM, no lymphadenopathy, supple and no JVD Neck Narrative: There is a strong carotid upstroke. I do not palpate any thrombosis of the external jugular vein which is visible bilaterally and appears symmetric. The patient does not have any swelling of the upper extremities or the neck that I can appreciate. Mild tenderness along the lateral posterior trapezius on the left no significant lymphadenopathy is felt. No masses are felt. There is no rash. Resp normal respiratory effort and clear to auscultation bilaterally Cardio regular rate, regular rhythm and no murmurs GI normal to inspection, nondistended, normoactive bowel sounds and non-tender Palpation: soft Back/Spine no CVA tenderness and normal ROM Extremity normal to inspection General Extremety ED: Negative for edema General Extremity: Negative for edema Neuro oriented x3 and CN's II-XII intact bilaterally Sensorium / Orientation: alert Motor Exam: strength 5/5 throughout Psych mental status grossly normal Mood Affect: Negative for depressed or tearful Skin no rashes or lesions noted and no wounds MDM MDM MDM Narrative Medical decision making narrative: Differential diagnosis includes but not limited to muscular strain venous thrombosis venous compression from chest peripheral artery disease congestive heart failure EKG was obtained through nursing protocol and shows sinus rhythm with occasional PVC (more content not included)... Normal [facility] CNOVon 05-24-2024 CNOV Office Visit ([facility] ) GASTON LAINEZ ([id number]) 1950 M Date Time Provider Department 05/24/24 10:45 AM SHAWANDA HALE During your visit today, we recorded the following information about you: Pulse Blood pressure Weight Height 56/minute 128/73 74.4 kg 1.829 m Zackery Anand MA 05/24/2024 10:45 AM Signed Gaston Lainez is a 73 year old year old man accompanied by: patient and spouse. Do you have any changes or new concerns you would like to address at the visit today? No concerns today here for followup Vital Signs: Ht 182.9 cm (6') Wt 74.4 kg (164 lb) BMI 22.24 kg/m? Shawanda Hale, [employer]OTIONS REPRESENTATIVE 05/24/2024 11:45 AM Signed Gaston Lainez 1950 [id number] [facility] [id number] [facility] FOLLOW-UP NOTE Accompanied by: spouse (Marilynn) Advanced Directives: non on file SUBJECTIVE Gaston Lainez is a 73 year old male seen today for a follow up visit. Gaston Lainez is being followed for Major neurocognitive disorder, likely multifactorial given complex history of TBI, bipolar disorder with psychotic episodes, but significant generalized cortical atrophy including hippocampal atrophy on MRI brain is concerning for a neurodegenerative condition such as Alzheimer's disease. Possibility of comorbid LBD remains but difficult to distinguish given complex history. Patient was last seen on . At that time the impression and agreed upon plan of care were as follows, included here in italics. (F03.90) Major neurocognitive disorder (HCC) Comment: Could not tolerate increased dose of Aricept due to bradycardia and fatigue. On 5 mg daily dose fatigue is improved but today he remains bradycardic. Underlying etiology likely multifactorial given complex history of TBI, bipolar disorder with psychotic episodes, but significant generalized cortical atrophy including hippocampal atrophy on MRI brain is concerning for a neurodegenerative condition such as Alzheimer's disease. Possibility of comorbid LBD remains but difficult to distinguish given complex history. Education provided on disease including course/progression, healthy lifestyle, etc. We discussed and agreed upon the following plan of care. Plan: Continue Aricept 5 mg once daily with breakfast for cognitive and behavioral symptoms of dementia. Please continue to monitor heart rate at home. I will update you on discussion of possible adjustment of Metoprolol dose to reduce effects on slowing heart rate and allow continuation of Aricept since this has been effective for cognitive/behavioral symptoms of dementia We will consider addition of Namenda in the future Look into emergency response systems to improve safety at home Cognitively healthy lifestyle. See the section below Ways to keep your brain healthy A heart healthy diet is a brain healthy diet. The MIND Diet is an evidence based diet proven to slow and protect against cognitive decline. See the section MIND Diet Guidelines below for more information. Follow up with me in 3 months Current treatment plan includes: Buspar 15 mg twice daily Zyprexa 2.5 mg 1 - 2 tablets at bedtime Aricept 5 mg daily with breakfast Initiate Namenda Estimated Creatinine Clearance: 82.2 mL/min (based on SCr of 0.83 mg/dL). (Ok for possible initiation of Namenda) Today, the patient/caregiver reports the following changes/concerns in the interim. CC: I think we are here to adjust the medication - spouse Good response to decrease in Aricpet to 5mg. Today's pulse is 56. Checking HR at home occasionally and spouse said it appears to be a good change, HR gets back up to the 70's and decreased fatigue. Denies lightheadedness/dizziness. Reports more difficulty remembering names. Still may awaken from dreams and thinks something has happened which hasn't, easy to reorient. Enjoys spending time with family, goes to gym 3-4 days a week, light house work and yard work Recent pneumonia - no hospitalization and no increase in confusion Other Interval history: Memory/Cognition: Patient describes their memory/cognition as not so bad Family reports stable, spouse reports when he is tired memory/confusion is worse Functional Status: stable in the interim 5. Activities of Daily Living [place] Index of [place] in Activities of Daily Living (A.D.L.) Bathing: Bathes self completely or needs help in bathing only a single part of the body such as the back, genital area or disabled extremity. (1 POINT) Dressing: Get clothes from closets and drawers and puts on clothes and outer garments complete with fasteners. May have help tying shoes. (1 POINT) Toileting: Goes to toilet, gets on and off, arranges clothes, cleans genital area without help. (1 POINT) Transferring: Moves in and out of bed or (more content not included)... Normal [facility] CNOVon 05-21-2024 CNOV Office Visit (CAWSTR ) GASTON LAINEZ ([id number]) 1950 M Date Time Provider Department 05/21/24 8:40 AM KRUNAL BARRAGAN During your visit today, we recorded the following information about you: Pulse Blood pressure Weight 61/minute 127/86 75.7 kg Krunal Barragan MD 05/21/2024 10:40 AM Signed [facility] Cardiology ([facility]) [address] [address] OUTPATIENT VISIT DATE 05/21/2024 PRIMARY CARE PHYSICIAN: Elif Mckinley [address] [place] [address] HISTORY OF PRESENT ILLNESS: Mr. Lainez is a 73 year old gentleman who had a cardiac catheterization due to abnormal stress test and chest pain in December 2020. He was found to have diffuse calcified nonobstructive coronary disease. He is also treated for borderline hypertension and dyslipidemia. He presents the office for routine follow-up. Patient was developing slow heart rates on metoprolol. Dose was decreased to 12.5 mg daily. He has been doing well from a functional standpoint. He denies symptoms concerning for lightheadedness, dizziness, syncope, or near syncope. He has not had symptoms concerning for CHF including PND, orthopnea, or lower extremity edema. PAST MEDICAL HISTORY Diagnosis Date Abnormal stress echocardiogram 01/14/2021 01/21/[address] Barragan: right dominant. LMT min luminal, LAD mild diffuse, LCx mild luminal with large caliber nondominant vessel extending into a single large obtuse marginal branch, proximal vessel is mildly calcified +mild luminal irreg, RCA 40% Large-caliber dominant vessel: moderate calcification from the proximal to mid vessel, mild diffuse ectatic disease proximal.The ostium of the Anxiety state, unspecified 10/24/2007 Benign paroxysmal positional vertigo one remote episode Bunion Chronic obstructive asthma, unspecified 10/24/2007 Depression likely bipolar disorder Depressive disorder, not elsewhere classified 10/24/2007 Generalized anxiety disorder 10/24/2007 History of marijuana use 03/02/2016 Quit 08/2015 Hypermobility syndrome Mild coronary artery disease Mixed hyperlipidemia 11/27/2008 Nontraumatic rupture of tendons of biceps (long head) R, 10/07 L OCD (obsessive compulsive disorder) Pneumonia, organism unspecified(486) 11/2001 bilateral: cleared Primary insomnia 03/02/2016 PAST SURGICAL HISTORY Procedure Laterality Date COLONOSCOPY FLX DX W/COLLJ SPEC WHEN PFRMD 09/21/2006 repeat due 2016 COLONOSCOPY FLX DX W/COLLJ SPEC WHEN PFRMD 04/22/2020 Colonoscopy COLSC FLX W/RMVL OF TUMOR POLYP LESION SNARE TQ 04/19/2017 2 adenomatous polyps - ESOPHAGOGASTRODUODENOSCOPY TRANSORAL DIAGNOSTIC 07/23/2019 EGD EXCISION OF BENIGN LESION GREATER THAN 1.25 CM 03/29/2000 tongue and lip lesions: fibroma; nose: sebaceous hyperplasia PAST SURGICAL HISTORY OF repair flexor tendon left thumb PAST SURGICAL HISTORY OF Left 09/03/2019 Dr. medina [facility]: left CTR and tenosynovectomy at wrist level PAST SURGICAL HISTORY OF Left 04/29/2021 Left median nerve release at the elbow and forearm, Dontae Medina MD, [facility] ROTATOR CUFF REPAIR 2008 left ROTATOR CUFF REPAIR 04/22/2016 right VASECTOMY UNI/BI SPX W/POSTOP SEMEN EXAMS SOCIAL HISTORY Social History Tobacco Use Smoking status: Former Current packs/day: 0.00 Average packs/day: 0.5 packs/day for 9.0 years (4.5 ttl pk-yrs) Types: Cigarettes Start date: 11/01/1967 Quit date: 10/31/1976 Years since quittin.5 Smokeless tobacco: Never Vaping Use Vaping status: Never Used Substance Use Topics Alcohol use: Yes Alcohol/week: 7.0 standard drinks of alcohol Types: 7 Glasses of wine per week Drug use: Not Currently Comment: marijuana use, has used inhalants FAMILY HISTORY Problem Relation Age of Onset Heart Mother age 66, CA, SLE other (lupus) Mother diagnosed age 49 Heart Father age 84, CHF other (G6PD) Sister G6PD Diabetes Brother 1/2 brother Hypertension Brother 1/2 brother Colon Cancer Brother rectal cancer? 1/2 brother ALLERGIES: ALLERGIES No Known Allergies MEDICATIONS: atorvastatin (LIPITOR) 40 mg tablet Take 1 tablet by mouth once daily. busPIRone (BUSPAR) 15 mg tablet Take 1 tablet by mouth two times a day. donepezil (ARICEPT) 5 mg tablet Take 1 tablet by mouth daily with breakfast. tamsulosin (FLOMAX) 0.4 mg Take 1 capsule by mouth daily at bedtime. Patient should start on April 02, 2024. Tadalafil (CIALIS) 10 mg tablet 1-2 tabs daily as needed predniSONE (DELTASONE) 20 mg tablet Take 60 mg by mouth once daily. (Patient not taking: Reported on 04/27/2024) OLANZapine (ZYPREXA) 2.5 mg tablet use 1 to 2 tablets at bedtime fluticasone-salmeterol (WIXELA INHUB) 250-50 m (more content not included)... Normal [facility] CNOVon 05-01-2024 [facility] GASTON LAINEZ ([id number]) 1950 M Date Time Provider Department 05/01/24 11:20 AM LETICIA HARDINGPWS During your visit today, we recorded the following information about you: Temperature Pulse Respiration Blood pressure 98.3 degrees 72/minute 12/minute 110/68 Weight 74.8 kg SuppLeticia gallardo APRN.[facility] 05/01/2024 12:09 PM Signed This is a 73 year old male who presents today with: Patient presents with: [facility] follow-up HISTORY OF PRESENT ILLNESS: Gaston Lainez is a 73 year old male. Patient presents with: [facility] follow-up Pain is better. SOB is better. Used puffer a few times. Still has antibiotic. No diarrhea. + thick cough Had a wheeze but not now. Still tired. PAST MEDICAL HISTORY: PAST MEDICAL HISTORY 01/14/2021: Abnormal stress echocardiogram Comment: 01/21/[address] Barragan: right dominant. LMT min luminal, LAD mild diffuse, LCx mild luminal with large caliber nondominant vessel extending into a single large obtuse marginal branch, proximal vessel is mildly calcified +mild luminal irreg, RCA 40% Large-caliber dominant vessel: moderate calcification from the proximal to mid vessel, mild diffuse ectatic disease proximal.The ostium of the 10/24/2007: Anxiety state, unspecified No date: Benign paroxysmal positional vertigo Comment: one remote episode No date: Bunion 10/24/2007: Chronic obstructive asthma, unspecified No date: Depression Comment: likely bipolar disorder 10/24/2007: Depressive disorder, not elsewhere classified 10/24/2007: Generalized anxiety disorder 03/02/2016: History of marijuana use Comment: Quit 08/2015 No date: Hypermobility syndrome No date: Mild coronary artery disease 11/27/2008: Mixed hyperlipidemia R, 10/07 L: Nontraumatic rupture of tendons of biceps (long head) No date: OCD (obsessive compulsive disorder) 11/2001: Pneumonia, organism unspecified(486) Comment: bilateral: cleared 03/02/2016: Primary insomnia PAST SURGICAL HISTORY 09/21/2006: COLONOSCOPY FLX DX W/COLLJ SPEC WHEN PFRMD Comment: repeat due 201604/22/2020: COLONOSCOPY FLX DX W/COLLJ SPEC WHEN PFRMD Comment: Colonoscopy 04/19/2017: COLSC FLX W/RMVL OF TUMOR POLYP LESION SNARE TQ Comment: 2 adenomatous polyps - 07/23/2019: ESOPHAGOGASTRODUODENOSCOPY TRANSORAL DIAGNOSTIC Comment: EGD 03/29/2000: EXCISION OF BENIGN LESION GREATER THAN 1.25 CM Comment: tongue and lip lesions: fibroma; nose: sebaceous hyperplasia No date: PAST SURGICAL HISTORY OF Comment: repair flexor tendon left thumb 09/03/2019: PAST SURGICAL HISTORY OF; Left Comment: Dr. medina [facility]: left CTR and tenosynovectomy at wrist level 04/29/2021: PAST SURGICAL HISTORY OF; Left Comment: Left median nerve release at the elbow and forearm, Dontae Medina MD, [facility] 2009: ROTATOR CUFF REPAIR Comment: left 04/22/2016: ROTATOR CUFF REPAIR Comment: right No date: VASECTOMY UNI/BI SPX W/POSTOP SEMEN EXAMS ALLERGIES Patient has no known allergies. MEDICATIONS Current Outpatient Medications Medication Sig doxycycline (VIBRA-TABS) 100 mg tablet Take 1 tablet by mouth two times a day for 7 days. amoxicillin-clavulanate potassium (AUGMENTIN) 875-125 mg per tablet Take 1 tablet by mouth two times a day for 7 days. donepezil (ARICEPT) 5 mg tablet Take 1 tablet by mouth daily with breakfast. tamsulosin (FLOMAX) 0.4 mg Take 1 capsule by mouth daily at bedtime. Patient should start on April 02, 2024. Tadalafil (CIALIS) 10 mg tablet 1-2 tabs daily as needed OLANZapine (ZYPREXA) 2.5 mg tablet use 1 to 2 tablets at bedtime busPIRone (BUSPAR) 15 mg tablet TAKE 1 TABLET BY MOUTH TWICE A DAY fluticasone-salmeterol (WIXELA INHUB) 250-50 mcg/dose inhaler Inhale 1 Puff as instructed two times a day. albuterol HFA (VENTOLIN HFA) 90 mcg/actuation inhaler Inhale 2 Puffs as instructed every 4 hours as needed for wheezing/shortness of breath. metoprolol succinate ER (TOPROL XL) 25 mg 24 hr tablet Take 1 tablet by mouth once daily. atorvastatin (LIPITOR) 40 mg tablet Take 1 tablet by mouth once daily. MULTIVITAMIN ORAL Take by mouth once daily. docusate sodium (COLACE) 100 mg capsule Take 1 capsule by mouth twice daily. polyethylene glycol 3350 (MIRALAX) 17 gram/dose powder 17g (1 scoop) with 8 oz daily as needed for constipation predniSONE (DELTASONE) 20 mg tablet Take 60 mg by mouth once daily. (Patient not taking: Reported on 04/27/2024) OTC PRODUCT Take 1 tablet by mouth once daily. PREVAGEN REGULAR STRENGTH (Patient not taking: Reported on 05/01/2024) No current facility-administered medications for this visit. FAMILY HISTORY Problem Relation Age of Onset Heart Mother age 66, CA, SLE other (lupus) Mother diagnosed age 49 Heart Father age 84, CHF other (G6PD) Sister G6PD Diabetes Brother (more content not included)... [facility] Telephone (UCTR) FATOUGASTON ([id number]) 1950 M Date Time Provider Department 04/28/24 CHINO KATZ [facility] During your visit today, we recorded the following information about you: Chino Katz PA 04/28/2024 8:08 AM Signed Negative for COVID flu RSV Raina Harrison MA 04/28/2024 8:12 AM Signed Patient given results and verbalized understanding of instructions given. Raina Harrison MA Allergies As of Date: 04/28/2024 (No Known Allergies) Date Reviewed: 04/27/2024 Reviewed by: Geovanna Tuttle LPN - Fully Assessed Reason for Visit: Results [95] Prescriptions as of 04/28/2024 - donepezil (ARICEPT) 5 mg tablet Take 1 tablet by mouth daily with breakfast. - tamsulosin (FLOMAX) 0.4 mg Take 1 capsule by mouth daily at bedtime. Patient should start on April 02, 2024. - Tadalafil (CIALIS) 10 mg tablet 1-2 tabs daily as needed - predniSONE (DELTASONE) 20 mg tablet Take 60 mg by mouth once daily. - OLANZapine (ZYPREXA) 2.5 mg tablet use 1 to 2 tablets at bedtime - busPIRone (BUSPAR) 15 mg tablet TAKE 1 TABLET BY MOUTH TWICE A DAY - fluticasone-salmeterol (WIXELA INHUB) 250-50 mcg/dose inhaler Inhale 1 Puff as instructed two times a day. - albuterol HFA (VENTOLIN HFA) 90 mcg/actuation inhaler Inhale 2 Puffs as instructed every 4 hours as needed for wheezing/shortness of breath. - metoprolol succinate ER (TOPROL XL) 25 mg 24 hr tablet Take 1 tablet by mouth once daily. - OTC PRODUCT Take 1 tablet by mouth once daily. PREVAGEN REGULAR STRENGTH - atorvastatin (LIPITOR) 40 mg tablet Take 1 tablet by mouth once daily. - MULTIVITAMIN ORAL Take by mouth once daily. - docusate sodium (COLACE) 100 mg capsule Take 1 capsule by mouth twice daily. 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] 10/24/2007 Minor depression [F32.A] 10/24/2007 Generalized anxiety disorder [F41.1] 10/24/2007 Disorders of bursae and tendons in shoulder reg*11/27/2008 12/02/2011 Mixed hyperlipidemia [E78.2] 11/27/2008 OCD (obsessive compulsive disorder) [F42.9] Disorder of prostate [N42.9] 02/24/2016 Primary insomnia [F51.01] 03/02/2016 History of marijuana use [F12.91] 03/02/2016 Well adult exam [Z00.00] 03/02/2016 Incomplete tear of left rotator cuff [M75.112] 03/29/2016 Arthritis, 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] 02/28/2017 Radicular pain of left lower extremity [M54.10] 03/10/2017 Acute midline low back pain with left-sided sci*03/10/2017 Screening for colon cancer [Z12.11] 03/10/2017 Colon cancer screening [Z12.11] 03/28/2017 Tubular adenoma of colon [D12.6] 01/30/2018 Vertigo [R42] 03/22/2018 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 FH: prostate cancer [Z80.42] 03/10/2020 SOB (shortness of breath) [R06.02] 01/06/2021 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 of miri*01/14/2021 Abnormal stress echocardiogram [R94.39] 01/14/2021 03/12/2021 H/O cardiac catheterization [Z98.890] 03/12/2021 Palpitations [R00.2] 03/12/2021 SVT (supraventricular tachycardia) ([facility]) [I47.1*10/09/2021 BPH with obstruction/lower urinary tract sympto*06/06/2022 Visual hallucinations [R44.1] 09/06/2022 GERD (gastroesophageal reflux disease) [K21.9] 12/20/2022 S/P reverse total shoulder arthroplasty, left [*01/03/2023 Major depressive disorder, recurrent, mild (HCC*03/14/2023 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] 08/30/2023 Thoracic spine pain [M54.6] 02/14/2024 Encounter Status:Closed by RAINA HARRISON on 04/28/24 Normal [facility] COVID & INFLUENZA A/B & RSV PCR, ROUTINEon 04-28-2024 FLUAV RNA CURTIS+probe Ql (Unsp spec) Not detected Not Detected [facility] FLUBV RNA CURTIS+probe Ql (Unsp spec) Not detected Not Detected [facility] Interpretation and review of laboratory results Normal [facility] RSV A RNA CURTIS+probe Ql (Unsp spec) Not detected Not Detected [facility] SARS-CoV-2 (COVID-19) RNA CURTIS+probe Ql (Unsp spec) Not detected See comment [facility] Reference Range (the expected result in uninfected individuals): Not detected [facility] XR CHEST 2V FRONTAL/LATon XR CHEST 2V FRONTAL/LAT * * *Final Report* * * DATE OF EXAM: Apr 28 2024 8:24AM WOX 5291 - XR CHEST 2V FRONTAL/LAT / PROCEDURE REASON: Acute cough * * * * Physician Interpretation * * * * EXAMINATION: CHEST RADIOGRAPH (2 VIEW FRONTAL and LATERAL) CLINICAL HISTORY: Acute cough MQ: XC2_6 EXAM DATE/TIME: 04/28/2024 8:24 AM COMPARISON: 04/14/2024 RESULT: Lines, tubes, and devices: Left shoulder arthroplasty. Lungs and pleura: The right lung is clear. There is a focus of opacification posteriorly in the lateral view likely representing a left lower lobe infiltrate. There is no pneumothorax or effusion. Cardiomediastinal silhouette: Normal cardiomediastinal silhouette. Bones and soft tissues: Unremarkable. IMPRESSION: Left lower lobe infiltrate. Recommend follow-up examination after completion of treatment until resolution. Linux Admin: [employer] Transcribe Date/Time: Apr 28 2024 8:27A Dictated by : JENELLE CORRIGAN MD This examination was interpreted and the report reviewed and electronically signed by: JENELLE CORRIGAN MD on Apr 28 2024 8:28AM EST [id number] Normal [facility] XR Chest PA and Lateralon IMPRESSION: Left low er lobe infiltrate. Recommend follow-up examination after completion of treatment until resolution. Linux Admin: [employer] Transcribe Date/Time: Apr 28 2024 8:27A Dictated by : JENELLE CORRIGAN MD This examination was interpreted and the report reviewed and electronically signed by: JENELLE CORRIGAN MD on Apr 28 2024 8:28AM EST DIVISION OF RADIOLOGY * * *Final Report* * * DATE OF EXAM: Apr 28 2024 8:24AM WOX 5291 - XR CHEST 2V FRONTAL/LAT / PROCEDURE REASON: Acute cough * * * * Physician Interpretation * * * * EXAMINATION: CHEST RADIOGRAPH (2 VIEW FRONTAL & LATERAL) CLINICAL HISTORY: Acute cough MQ: XC2_6 EXAM DATE/TIME: 04/28/2024 8:24 AM COMPARISON: 04/14/2024 RESULT: Lines, tubes, and devices: Left shoulder arthroplasty. Lungs and pleura: The right lung is clear. There is a focus of opacification posteriorly in the lateral view likely representing a left lower lobe infiltrate. There is no pneumothorax or effusion. Cardiomediastinal silhouette: Normal cardiomediastinal silhouette. Bones and soft tissues: Unremarkable. DIVISION OF RADIOLOGY Provider, [facility] - 04/28/2024 * * *Final Report* * * DATE OF EXAM: Apr 28 2024 8:24AM WOX 5291 - XR CHEST 2V FRONTAL/LAT / PROCEDURE REASON: Acute cough * * * * Physician Interpretation * * * * EXAMINATION: CHEST RADIOGRAPH (2 VIEW FRONTAL & LATERAL) CLINICAL HISTORY: Acute cough MQ: XC2_6 EXAM DATE/TIME: 04/28/2024 8:24 AM COMPARISON: 04/14/2024 RESULT: Lines, tubes, and devices: Left shoulder arthroplasty. Lungs and pleura: The right lung is clear. There is a focus of opacification posteriorly in the lateral view likely representing a left lower lobe infiltrate. There is no pneumothorax or effusion. Cardiomediastinal silhouette: Normal cardiomediastinal silhouette. Bones and soft tissues: Unremarkable. IMPRESSION IMPRESSION: Left lower lobe infiltrate. Recommend follow-up examination after completion of treatment until resolution. Linux Admin: [employer] Transcribe Date/Time: Apr 28 2024 8:27A Dictated by : JENELLE CORRIGAN MD This examination was interpreted and the report reviewed and electronically signed by: JENELLE CORRIGAN MD on Apr 28 2024 8:28AM EST [facility] Radiology Study observation (narrative) [facility] XR Chest PA and LateralOrder ed By: [facility] Provider on 04-28-2024 [facility] CBC W Auto Differential pane l (Bld)on 04-27-2024 Basophils (Bld) [#/Vol] 0.04 10*3/uL Normal <0.11 [facility] Comment on above: Order Comment: Kait galvez Type: BLOOD SPECIMEN Ordering Facility: [facility] Address: [address] [place] [address] Performed By: #### 5 7021-8 #### [facility] CLIA [id number] [address] [place] [address] [place] [address] [place] Basophils/100 WBC (Bld) 0.4 % Normal [facility] Comment on above: Order Comment: Speci men Type: BLOOD SPECIMEN Ordering Facility: [facility] Address: [address] [place] [address] Performed By: #### 5 7021-8 #### [facility] CLIA [id number] [address] [place] [address] [place] Differential cell count method Nom (Bld) Auto Normal [facility] Comment on above: Order Comment: Speci men Type: BLOOD SPECIMEN Ordering Facility: [facility] Address: [address] [place] [address] Performed By: #### 5 7021-8 #### [facility] CLIA [id number] [address] [place] [address] [place] Eosinophils (Bld) [#/Vol] 0.23 10*3/uL Normal <0.46 [facility] Comment on above: Order Comment: Speci men Type: BLOOD SPECIMEN Ordering Facility: [facility] Address: [address] [place] [address] Performed By: #### 5 7021-8 #### [facility] CLIA [id number] [address] [place] [address] [place] Eosinophils/100 WBC (Bld) 2.3 % Normal [facility] Comment on above: Order Comment: Speci men Type: BLOOD SPECIMEN Ordering Facility: [facility] Address: [address] [place] [address] Performed By: #### 5 7021-8 #### [facility] CLIA [id number] [address] [place] [address] [place] Erythrocyte distribution width (RBC) [Ratio] 13.5 % Normal 11.5-15.0 [facility] Comment on above: Order Comment: Speci men Type: BLOOD SPECIMEN Ordering Facility: [facility] Address: [address] [place] [address] Performed By: #### 5 7021-8 #### [facility] CLIA [id number] [address] [place] [address] [place] Hematocrit (Bld) [Volume fraction] 42.2 % Normal 39.0-51.0 [facility] Comment on above: Order Comment: Speci men Type: BLOOD SPECIMEN Ordering Facility: [facility] Address: [address] [place] [address] Performed By: #### 5 7021-8 #### [facility] CLIA [id number] [address] [place] [address] [place] Hemoglobin (Bld) [Mass/Vol] 13.9 g/dL Normal 13.0-17.0 [facility] Comment on above: Order Comment: Speci men Type: BLOOD SPECIMEN Ordering Facility: [facility] Address: [address] [place] [address] Performed By: #### 5 7021-8 #### [facility] CLIA [id number] [address] [place] [address] [place] Immature granulocytes (Bld) [#/Vol] 0.04 10*3/uL Normal <0.10 [facility] Comment on above: Order Comment: Speci men Type: BLOOD SPECIMEN Ordering Facility: [facility] Address: [address] [place] [address] Performed By: #### 5 7021-8 #### [facility] CLIA [id number] [address] [place] [address] [place] Immature granulocytes/100 WBC (Bld) 0.4 % Normal [facility] Comment on above: Order Comment: Speci men Type: BLOOD SPECIMEN Ordering Facility: [facility] Address: [address] [place] [address] Performed By: #### 5 7021-8 #### [facility] CLIA [id number] [address] [place] [address] [place] Lymphocytes (Bld) [#/Vol] 1.65 10*3/uL Normal 1.00-4.00 [facility] Comment on above: Order Comment: Speci men Type: BLOOD SPECIMEN [facility] [facility] Address: [address] [place] [address] Performed By: #### 5 7021-8 #### [facility] CLIA [id number] [address] [place] [address] [place] Lymphocytes/100 WBC (Bld) 16.5 % Normal [facility] Comment on above: Order Comment: Speci men Type: BLOOD SPECIMEN [facility] Facility[facility] Address: [address] [place] [address] Performed By: #### 5 7021-8 #### [facility] CLIA [id number] [address] [place] [address] [place] MCH (RBC) [Entitic mass] 30.5 pg Normal 26.0-34.0 [facility] Comment on above: Order Comment: Speci men Type: BLOOD SPECIMEN [facility]ing Facility: [facility] Address: [address] [place] [address] Performed By: #### 5 7021-8 #### [facility] CLIA [id number] [address] [place] [address] [place] MCHC (RBC) [Mass/Vol] 32.9 g/dL Normal 30.5-36.0 [facility] Comment on above: Order Comment: Speci men Type: BLOOD SPECIMEN [facility]ing Facility: [facility] Address: [address] [place] [address] Performed By: #### 5 7021-8 #### [facility] CLIA [id number] [address] [place] [address] [place] MCV (RBC) [Entitic vol] 92.5 fL Normal 80.0-100.0 [facility] Comment on above: Order Comment: Speci men Type: BLOOD SPECIMEN [facility] Address: [address] [place] [address] Performed By: #### 5 7021-8 #### [facility] CLIA [id number] [address] [place] [address] [place] Monocytes (Bld) [#/Vol] 0.65 10*3/uL Normal <0.87 [facility] Comment on above: Order Comment: Speci men Type: BLOOD SPECIMEN [facility] Facility: [facility] Address: [address] [place] [address] Performed By: #### 5 7021-8 #### [facility] CLIA [id number] [address] [place] [address] [place] Monocytes/100 WBC (Bld) 6.5 % Normal [facility] Comment on above: Order Comment: Speci men Type: BLOOD SPECIMEN [facility]: [facility] Address: [address] [place] [address] Performed By: #### 5 7021-8 #### [facility] CLIA [id number] [address] [place] [address] [place] Neutrophils (Bld) [#/Vol] 7.41 10*3/uL Normal 1.45-7.50 [facility] Comment on above: Order Comment: Speci men Type: BLOOD SPECIMEN [facility]: [facility] Address: [address] [place] [address] Performed By: #### 5 7021-8 #### [facility] CLIA [id number] [address] [place] [address] [place] Neutrophils/100 WBC (Bld) 73.9 % Normal [facility] Comment on above: Order Comment: Speci men Type: BLOOD SPECIMEN [facility]: [facility] Address: [address] [place] [address] Performed By: #### 5 7021-8 #### [facility] CLIA [id number] [address] [place] [address] [place] Nucleated RBC (Bld) [#/Vol] 10*3/uL Normal <0.01 [facility] Comment on above: Order Comment: Speci men Type: BLOOD SPECIMEN [facility] Address: [address] [place] [address] Performed By: #### 5 7021-8 #### [facility] CLIA [id number] [address] [place] [address] [place] Nucleated RBC/100 WBC (Bld) [Ratio] 0.0 /100 WBC Normal [facility] Comment on above: Order Comment: Speci men Type: BLOOD SPECIMEN [facility] Address: [address] [place] [address] Performed By: #### 5 7021-8 #### [facility] CLIA [id number] [address] [place] [address] [place] Platelet mean volume (Bld) [Entitic vol] 9.9 fL Normal 9.0-12.7 [facility] Comment on above: Order Comment: Speci men Type: BLOOD SPECIMEN [facility] Address: [address] [place] [address] Performed By: #### 5 7021-8 #### [facility] CLIA [id number] [address] [place] [address] [place] Platelets (Bld) [#/Vol] 270 10*3/uL Normal 150-400 [facility] Comment on above: Order Comment: Speci men Type: BLOOD SPECIMEN [facility] Address: [address] [place] [address] Performed By: #### 5 7021-8 #### [facility] CLIA [id number] [address] [place] [address] [place] RBC (Bld) [#/Vol] 4.56 10*6/uL Normal 4.20-6.00 [facility] Comment on above: Order Comment: Speci men Type: BLOOD SPECIMEN [facility] Address: [address] [place] [address] Performed By: #### 5 7021-8 #### [facility] CLIA [id number] [address] [place] [address] [place] WBC (Bld) [#/Vol] 10.02 10*3/uL Normal 3.70-11.00 [facility] Comment on above: Order Comment: Speci men Type: BLOOD SPECIMEN [facility] Address: [address] [place] [address] Performed By: #### 5 7021-8 #### [facility] CLIA [id number] [address] [place] [address] [place] CNOVon 04-27-2024 CNOV Office Visit (UCWSTR ) GASTON LAINEZ ([id number]) 1950 M Date Time Provider Department 04/27/24 7:00 PM ARTURO LEMA [facility] During your visit today, we recorded the following information about you: Temperature Pulse Respiration Blood pressure 100.3 degrees 91/minute 18/minute 113/73 Weight 75.3 kg Arturo Lema APRN.PROMOTIONS REPRESENTATIVE 04/28/2024 9:43 AM Signed Subjective HPI Nontoxic-appearing male presents urgent care accompanied by significant other. Chief complaint cough chest congestion body aches fever. States was seen here 3 weeks ago with cough. Chest x-ray negative. Placed on prednisone. Cough did improve. Cough worsens again the last few days. Patient was outside earlier this morning working for about 3 hours. Became fatigued. Came inside. Has not ate a bunch today for lack of appetite. Has been drinking fluids. Last urinated around 430. Brother was sick with pneumonia. Denies any high fevers productive cough hemoptysis pleuritic pain chest pain nausea vomiting abdominal pain change in bowel or bladder habits. Past medical history prescription medications allergies reviewed. BP 113/73 Pulse 91 Temp 37.9 ?C (100.3 ?F) Resp 18 Wt 75.3 kg (166 lb 0.1 oz) SpO2 95% BMI 22.51 kg/m? .Patient presents with: Fatigue: Cough, chest congestion x 3 days, body aches, fever. PAST MEDICAL HISTORY 01/14/2021: Abnormal stress echocardiogram Comment: 01/21/[address] Barragan: right dominant. LMT min luminal, LAD mild diffuse, LCx mild luminal with large caliber nondominant vessel extending into a single large obtuse marginal branch, proximal vessel is mildly calcified +mild luminal irreg, RCA 40% Large-caliber dominant vessel: moderate calcification from the proximal to mid vessel, mild diffuse ectatic disease proximal.The ostium of the 10/24/2007: Anxiety state, unspecified No date: Benign paroxysmal positional vertigo Comment: one remote episode No date: Bunion 10/24/2007: Chronic obstructive asthma, unspecified No date: Depression Comment: likely bipolar disorder 10/24/2007: Depressive disorder, not elsewhere classified 10/24/2007: Generalized anxiety disorder 03/02/2016: History of marijuana use Comment: Quit 08/2015 No date: Hypermobility syndrome No date: Mild coronary artery disease 11/27/2008: Mixed hyperlipidemia R, 10/07 L: Nontraumatic rupture of tendons of biceps (long head) No date: OCD (obsessive compulsive disorder) 11/2001: Pneumonia, organism unspecified(486) Comment: bilateral: cleared 03/02/2016: Primary insomnia PAST SURGICAL HISTORY 09/21/2006: COLONOSCOPY FLX DX W/COLLJ SPEC WHEN PFRMD Comment: repeat due 201604/22/2020: COLONOSCOPY FLX DX W/COLLJ SPEC WHEN PFRMD Comment: Colonoscopy 04/19/2017: COLSC FLX W/RMVL OF TUMOR POLYP LESION SNARE TQ Comment: 2 adenomatous polyps - 07/23/2019: ESOPHAGOGASTRODUODENOSCOPY TRANSORAL DIAGNOSTIC Comment: EGD 03/29/2000: EXCISION OF BENIGN LESION GREATER THAN 1.25 CM Comment: tongue and lip lesions: fibroma; nose: sebaceous hyperplasia No date: PAST SURGICAL HISTORY OF Comment: repair flexor tendon left thumb 09/03/2019: PAST SURGICAL HISTORY OF; Left Comment: Dr. medina [facility]: left CTR and tenosynovectomy at wrist level 04/29/2021: PAST SURGICAL HISTORY OF; Left Comment: Left median nerve release at the elbow and forearm, Dontae Medina MD, [facility] 2008: ROTATOR CUFF REPAIR Comment: left 04/22/2016: ROTATOR CUFF REPAIR Comment: right No date: VASECTOMY UNI/BI SPX W/POSTOP SEMEN EXAMS ALLERGIES Patient has no known allergies. MEDICATIONS donepezil (ARICEPT) 5 mg tablet Take 1 tablet by mouth daily with breakfast. tamsulosin (FLOMAX) 0.4 mg Take 1 capsule by mouth daily at bedtime. Patient should start on April 02, 2024. Tadalafil (CIALIS) 10 mg tablet 1-2 tabs daily as needed OLANZapine (ZYPREXA) 2.5 mg tablet use 1 to 2 tablets at bedtime busPIRone (BUSPAR) 15 mg tablet TAKE 1 TABLET BY MOUTH TWICE A DAY fluticasone-salmeterol (WIXELA INHUB) 250-50 mcg/dose inhaler Inhale 1 Puff as instructed two times a day. albuterol HFA (VENTOLIN HFA) 90 mcg/actuation inhaler Inhale 2 Puffs as instructed every 4 hours as needed for wheezing/shortness of breath. metoprolol succinate ER (TOPROL XL) 25 mg 24 hr tablet Take 1 tablet by mouth once daily. OTC PRODUCT Take 1 tablet by mouth once daily. PREVAGEN REGULAR STRENGTH atorvastatin (LIPITOR) 40 mg tablet Take 1 tablet by mouth once daily. MULTIVITAMIN ORAL Take by mouth once daily. docusate sodium (COLACE) 100 mg capsule Take 1 capsule by mouth twice daily. polyethylene glycol 3350 (MIRALAX) 17 gram/dose powder 17g (1 scoop) with 8 oz daily as needed for constipation predniSONE (DELTASONE) 20 mg tablet Take 60 mg by mouth once daily. (Patient not taking: Reported on 04/27/2024) FAMILY HISTORY Proble (more content not included)... Normal [facility] COVID AND INFLUENZA A/B AND RSV PCR, ROUTINEon 04-27-2024 SARS-CoV-2 (COVID-19) RNA CURTIS+probe Ql (Unsp spec) SARS-COV-2 (AGENT OF COVID-19) RNA: Not detected INFLUENZA A RNA: Not detected INFLUENZA B RNA: Not detected RESPIRATORY SYNCYTIAL VIRUS (RSV) RNA: Not detected Normal [facility] Comment on above: Performed By: #### C VFLRS #### [facility] CLIA [id number] [address] [place] [address] [place] Comprehensive metabolic 2000 panelon 04-27-2024 Albumin [Mass/Vol] 4.0 g/dL Normal 3.9-4.9 [facility] Comment on above: Order Comment: Speci men Type: BLOOD SPECIMENOrdering Facility: [facility] Address: [address] [place] [address] Performed By: #### 2 4323-8, 11917-8 ####[facility] [id number] [place] [address] [place] ALP [Catalytic activity/Vol] 77 U/L Normal 38-113 [facility] Comment on above: Order Comment: Speci men Type: BLOOD SPECIMENOrdering Facility: [facility] Address: [address] [place] [address] Performed By: #### 2 4323-8, 47027-7 ####[facility] [id number] [place] [address] [place] ALT [Catalytic activity/Vol] 17 U/L Normal 10-54 [facility] Comment on above: Order Comment: Speci men Type: BLOOD SPECIMENOrdering Facility: [facility] Address: [address] [place] [address] Performed By: #### 2 4323-8, 94463-7 ####[facility] [id number] [place] [id number] [place] Anion gap [Moles/Vol] 12 mmol/L Normal 8-15 [facility] Comment on above: Order Comment: Speci men Type: BLOOD SPECIMENOrdering Facility: [facility] Address: [address] [place] [address] Performed By: #### 2 4323-8, 98911-1 ####[facility] [id number] [place] [address] [place] AST [Catalytic activity/Vol] 20 U/L Normal 14-40 [facility] Comment on above: Order Comment: Speci men Type: BLOOD SPECIMENOrdering Facility: [facility] Address: [address] [place] [address] Performed By: #### 2 4323-8, 46399-2 ####[facility] [id number] [place] [address] [place] Bilirubin [Mass/Vol] 0.6 mg/dL Normal 0.2-1.3 [facility] Comment on above: Order Comment: Speci men Type: BLOOD SPECIMENOrdering Facility: [facility] Address: [address] [place] [address] Performed By: #### 2 4323-8, 83028-3 ####[facility] [id number] [place] [address] [place] Calcium [Mass/Vol] 9.4 mg/dL Normal 8.5-10.2 [facility] Comment on above: Order Comment: Speci men Type: BLOOD SPECIMENOrdering Facility: [facility] Address: [address] [place] [address] Performed By: #### 2 4323-8, 50556-2 ####[facility] [id number] [place] [address] [place] Chloride [Moles/Vol] 101 mmol/L Normal 98-107 [facility] Comment on above: Order Comment: Speci men Type: BLOOD SPECIMENOrdering Facility: [facility] Address: [address] [place] [address] Performed By: #### 2 4323-8, 49172-8 ####[facility] [id number] [place] [address] [place] CO2 [Moles/Vol] 23 mmol/L Normal 22-30 [facility] Comment on above: Order Comment: Speci men Type: BLOOD SPECIMENOrdering Facility: [facility] Address: [address] [place] [address] Performed By: #### 2 4323-8, ####[facility]IA [id number] [address] [address] [place] Creatinine [Mass/Vol] 0.83 mg/dL Normal 0.73-1.22 [facility] Comment on above: Order Comment: Speci men Type: BLOOD SPECIMENOrdering Facility: [facility] Address: [address] [place] [address] Performed By: #### 2 4323-8, ####[facility]IA [id number] [place] [address] [place] Creatinine and Glomerular filtration rate.predicted panel (S/P/Bld) 92 mL/min/1.73m??? Normal >=60 [facility] Comment on above: Order Comment: Speci men Type: BLOOD SPECIMENOrdering Facility: [facility] Address: [address] [place] [address] Result Comment: Rashmi mated Glomerular Filtration Rate (eGFR) is calculated using the 2020 CKD-EPI creatinine equation. This equation utilizes serum creatinine, sex, and age as parameters. The creatinine assay has traceable calibration to isotope dilution-mass spectrometry. Refer to KDIGO guidelines for clinical interpretation. In patients with unstable renal function, e.g. those with acute kidney injury, the eGFR may not accurately reflect actual GFR. Performed By: #### 2 4323-8, ####[facility]IA [id number] [place] [address] [place] Glucose [Mass/Vol] 84 mg/dL Normal 74-99 [facility] Comment on above: Order Comment: Speci men Type: BLOOD SPECIMENOrdering Facility: [facility] Address: [address] [place] [address] Result Comment: The [place] Diabetes Association (ADA) provides guidance for cutoff values for fasting glucose and random glucose. The ADA defines fasting as no caloric intake for at least 8 hours. Fasting plasma glucose results between 100 to 125 mg/dL indicate increased risk for diabetes (prediabetes). Fasting plasma glucose results greater than or equal to 126 mg/dL meet the criteria for diagnosis of diabetes. In the absence of unequivocal hyperglycemia, results should be confirmed by repeat testing. In a patient with classic symptoms of hyperglycemia or hyperglycemic crisis, random plasma glucose results greater than or equal to 200 mg/dL meet the criteria for diagnosis of diabetes. Reference: Standards of Medical Care in Diabetes 2016, [place] Diabetes Association. Diabetes Care. 2016.39(Suppl 1). Performed By: #### 2 4323-8, 28578-6 ####[facility]IA [id number] [place] [address] [place] Potassium [Moles/Vol] 4.7 mmol/L Normal 3.7-5.1 [facility] Comment on above: Order Comment: Speci men Type: BLOOD SPECIMENOrdering Facility: [facility] Address: [address] [place] [address] Performed By: #### 2 4323-8, 52016-5 ####[facility]IA [id number] [place] [address] [place] Protein [Mass/Vol] 6.6 g/dL Normal 6.3-8.0 [facility] Comment on above: Order Comment: Speci men Type: BLOOD SPECIMENOrdering Facility: [facility] Address: [address] [place] [address] Performed By: #### 2 4323-8, ####[facility]IA [id number] [place] [address] [place] Sodium [Moles/Vol] 136 mmol/L Normal 136-144 [facility] Comment on above: Order Comment: Speci men Type: BLOOD SPECIMENOrdering Facility: [facility] Address: [address] [place] [address] Performed By: #### 2 4323-8, 92366-1 ####[facility]IA [id number] [address] [address] [place] Urea nitrogen [Mass/Vol] 11 mg/dL Normal 9-24 [facility] Comment on above: Order Comment: Speci men Type: BLOOD SPECIMENOrdering Facility: [facility] Address: [address] [place] [address] Performed By: #### 2 4323-8, 90600-4 ####[facility]IA [id number] [place] [id number] [place] Lipid 1996 panelon 4 Cholesterol [Mass/Vol] 133 mg/dL Normal <200 [facility] Comment on above: Order Comment: Speci men Type: BLOOD SPECIMENOrdering Facility: [facility] Address: [address] [place] [address] Result Comment: <200 mg/dL, Desirable 200-239 mg/dL, Borderline high >239 mg/dL, High Performed By: #### 2 4323-8, 56884-0 ####[facility]IA [id number] [place] [address] [place] Cholesterol in HDL [Mass/Vol] 65 mg/dL Normal >39 [facility] Comment on above: Order Comment: Speci men Type: BLOOD SPECIMENOrdering Facility: [facility] Address: [address] [place] [address] Result Comment: 40-5 9 mg/dL, Acceptable >59 mg/dL, High: Negative risk factor for coronary heart disease <40 mg/dL, Low: Positive risk factor for coronary heart disease Performed By: #### 2 4323-8, 88723-1 ####[facility]IA [id number] [place] [address] [place] Cholesterol in LDL [Mass/Vol] 59 mg/dL Normal <100 [facility] Comment on above: Order Comment: Speci men Type: BLOOD SPECIMENOrdering Facility: [facility] Address: [address] [place] [address] Result Comment: <100 mg/dL, Optimal 100-129 mg/dL, Near optimal/above optimal 130-159 mg/dL, Borderline high 160-189 mg/dL, High >189 mg/dL, Very high Secondary prevention optimal LDL Cholesterol levels are recommended to be < 70 mg/dL Performed By: #### 2 4323-8, 54457-5 ####[facility]IA [id number] [place] [address] [place] Cholesterol in LDL/Cholesterol in HDL [Mass ratio] 0.91 {ratio} Normal <2.54 [facility] Comment on above: Order Comment: Speci men Type: BLOOD SPECIMENOrdering Facility: [facility] Address: [address] [place] [address] Result Comment: Refe rence: 1. National Cholesterol Education Program ATP III Guideline At-A-Glance Quick Desk Reference: National Heart, Lung, and Blood [place]. National Institutes of Health. 2001: NIH Publication No. 01-3305. 2. An International Atherosclerosis Society position paper: global recommendations for the management of dyslipidemia: executive summary, Atherosclerosis. 2014: 232(2):410-413. Performed By: #### 2 4323-8, 75944-6 ####[facility] LABIA [id number] [place] [address] [place] Cholesterol in VLDL [Mass/Vol] 9 mg/dL Normal <30 [facility] Comment on above: Order Comment: Speci men Type: BLOOD SPECIMENOrdering Facility: [facility] Address: [address] [place] [address] Performed By: #### 2 4323-8, 95536-4 ####[facility]IA [id number] [place] [address] [place] Cholesterol non HDL [Mass/Vol] 68 mg/dL Normal <130 [facility] Comment on above: Order Comment: Rosemariei men Type: BLOOD SPECIMENOrdering Facility: [facility] Address: [address] [place] [address] Result Comment: <130 mg/dL, Optimal 130-159 mg/dL, Near optimal/above optimal 160-189 mg/dL, Borderline high 190-219 mg/dL, High >219 mg/dL, Very high Secondary prevention optimal non HDL Cholesterol levels are recommended to be <100 mg/dL Performed By: #### 2 4323-8, 80722-0 ####[facility]IA [id number] [facility] [place] [place] [address] [place] Cholesterol.total/Ch olesterol in HDL [Mass ratio] 2.05 {ratio} Normal <5.10 [facility] Comment on above: Order Comment: Speci men Type: BLOOD SPECIMENOrdering Facility: [facility] Address: [address] [place] [address] Performed By: #### 2 4323-8, 18001-0 ####[facility]CLIA [id number] [address] [place] FASTING TIME 12 hrs Normal [facility] Comment on above: Order Comment: Speci men Type: BLOOD SPECIMENOrdering Facility: [facility] Address: [address] [place] [address] Performed By: #### 2 4323-8, 81207-8 ####[facility]IA [id number] [place] [address] [place] Triglyceride [Mass/Vol] 44 mg/dL Normal <150 [facility] Comment on above: Order Comment: Speci men Type: BLOOD SPECIMENOrdering Facility: [facility] Address: [address] [place] [address] Result Comment: <150 mg/dL, Normal 150-199 mg/dL, Borderline high 200-499 mg/dL, High >499 mg/dL, Very high Performed By: #### 2 4323-8, 45974-6 ####[facility]IA [id number] [place] [id number] [place] CNOVon 04-14-2024 CNOV Office Visit (WSTR ) GASTON LAINEZ ([id number]) 1950 M Date Time Provider Department 04/14/24 11:30 AM [facility] [facility] During your visit today, we recorded the following information about you: Temperature Pulse Respiration Blood pressure 99.5 degrees 69/minute 18/minute 106/66 Weight 76.2 kg Willi Church APRN.PROMOTIONS REPRESENTATIVE 04/14/2024 12:25 PM Signed CC: Patient presents with: Cough: Chest congestion x3 days HPI: Gaston Lainez is a 73 year old male who presents to the office with complaint of chest congestion and cough, nonproductive for a few days. Symptoms are worsening Associated symptoms includes wheezing. Denies nausea, vomiting , and diarrhea. Treatments tried include nothing so far. with no relief of symptoms. Sick contacts: unknown. History of asthma, frequent episodes of bronchitis, chronic bronchitis, bronchiectasis or COPD: Yes asthma Smoker: No Seasonal/environmental allergies: No The ROS is otherwise negative. The patient's pmh, medications, allergies, and past visits are reviewed. PHYSICAL EXAM: BP 106/66 Pulse 69 Temp 37.5 ?C (99.5 ?F) Resp 18 Wt 76.2 kg (167 lb 15.9 oz) SpO2 97% BMI 22.78 kg/m? General appearance: alert, cooperative, pleasant, in no acute distress Head: Normocephalic Eyes: EOM's intact, conjunctiva pink and moist, no icterus, sclera white, non-injected Ears: Right ear: External ear/canal- Normal, TM - clear with good landmarks. Left ear: External ear/canal- Normal, TM - clear with good landmarks Oropharynx:moist without lesions, No erythema, exudates or tonsillar hypertrophy. Heart: Negative. RRR without obvious murmur, gallop, or rubs. No ectopy. Lungs: wheezing diffusely PAST MEDICAL HISTORY 01/14/2021: Abnormal stress echocardiogram Comment: 01/21/[address] Barragan: right dominant. LMT min luminal, LAD mild diffuse, LCx mild luminal with large caliber nondominant vessel extending into a single large obtuse marginal branch, proximal vessel is mildly calcified +mild luminal irreg, RCA 40% Large-caliber dominant vessel: moderate calcification from the proximal to mid vessel, mild diffuse ectatic disease proximal.The ostium of the 10/24/2007: Anxiety state, unspecified No date: Benign paroxysmal positional vertigo Comment: one remote episode No date: Bunion 10/24/2007: Chronic obstructive asthma, unspecified No date: Depression Comment: likely bipolar disorder 10/24/2007: Depressive disorder, not elsewhere classified 10/24/2007: Generalized anxiety disorder 03/02/2016: History of marijuana use Comment: Quit 08/2015 No date: Hypermobility syndrome No date: Mild coronary artery disease 11/27/2008: Mixed hyperlipidemia R, 10/07 L: Nontraumatic rupture of tendons of biceps (long head) No date: OCD (obsessive compulsive disorder) 11/2001: Pneumonia, organism unspecified(486) Comment: bilateral: cleared 03/02/2016: Primary insomnia PAST SURGICAL HISTORY 09/21/2006: COLONOSCOPY FLX DX W/COLLJ SPEC WHEN PFRMD Comment: repeat due 201604/22/2020: COLONOSCOPY FLX DX W/COLLJ SPEC WHEN PFRMD Comment: Colonoscopy 04/19/2017: COLSC FLX W/RMVL OF TUMOR POLYP LESION SNARE TQ Comment: 2 adenomatous polyps - 07/23/2019: ESOPHAGOGASTRODUODENOSCOPY TRANSORAL DIAGNOSTIC Comment: EGD 03/29/2000: EXCISION OF BENIGN LESION GREATER THAN 1.25 CM Comment: tongue and lip lesions: fibroma; nose: sebaceous hyperplasia No date: PAST SURGICAL HISTORY OF Comment: repair flexor tendon left thumb 09/03/2019: PAST SURGICAL HISTORY OF; Left Comment: Dr. tiffany Rebolledo [facility]: left CTR and tenosynovectomy at wrist level 04/29/2021: PAST SURGICAL HISTORY OF; Left Comment: Left median nerve release at the elbow and forearm, Dontae Medina MD, [facility] 2008: ROTATOR CUFF REPAIR Comment: left 04/22/2016: ROTATOR CUFF REPAIR Comment: right No date: VASECTOMY UNI/BI SPX W/POSTOP SEMEN EXAMS ALLERGIES Patient has no known allergies. MEDICATIONS donepezil (ARICEPT) 5 mg tablet Take 1 tablet by mouth daily with breakfast. tamsulosin (FLOMAX) 0.4 mg Take 1 capsule by mouth daily at bedtime. Patient should start on April 02, 2024. Tadalafil (CIALIS) 10 mg tablet 1-2 tabs daily as needed predniSONE (DELTASONE) 20 mg tablet Take 60 mg by mouth once daily. (Patient not taking: Reported on 02/07/2024) OLANZapine (ZYPREXA) 2.5 mg tablet use 1 to 2 tablets at bedtime busPIRone (BUSPAR) 15 mg tablet TAKE 1 TABLET BY MOUTH TWICE A DAY fluticasone-salmeterol (WIXELA INHUB) 250-50 mcg/dose inhaler Inhale 1 Puff as instructed two times a day. albuterol HFA (VENTOLIN HFA) 90 mcg/actuation inhaler Inhale 2 Puffs as instructed every 4 hours as needed for wheezing/shortness of breath. metoprolol succinate ER (TOPROL XL) 25 mg 24 hr tablet Take 1 tablet by mouth once daily. OTC PRODUCT Take 1 tablet by mouth on (more content not included)... Normal [facility] XR CHEST 2V FRONTAL/LATon XR CHEST 2V FRONTAL/LAT * * *Final Report* * * DATE OF EXAM: Apr 14 2024 11:58AM WOX 5291 - XR CHEST 2V FRONTAL/LAT / PROCEDURE REASON: Acute cough * * * * Physician Interpretation * * * * EXAMINATION: CHEST RADIOGRAPH (2 VIEW FRONTAL and LATERAL) CLINICAL HISTORY: Acute cough MQ: XC2_6 EXAM DATE/TIME: 04/14/2024 11:58 AM COMPARISON: Chest x-ray of 08/20/2020 RESULT: Lines, tubes, and devices: None. Lungs and pleura: No consolidation. No lung mass. No pleural effusion. No pneumothorax. Cardiomediastinal silhouette: Normal cardiomediastinal silhouette. Bones and soft tissues: Partially visualized reverse left shoulder arthroplasty. IMPRESSION: No acute radiographic abnormality. Linux Admin: AMILCAR Transcribe Date/Time: Apr 14 2024 12:11P Dictated by : PETRONA HOWARD MD This examination was interpreted and the report reviewed and electronically signed by: PETRONA HOWARD MD on Apr 14 2024 12:12PM EST [id number] Normal [facility] XR Chest PA and Lateralon IMPRESSION: No acute radiographic abnormality. Linux Admin: AMILCAR Transcribe Date/Time: Apr 14 2024 12:11P Dictated by : PETRONA HOWARD MD This examination was interpreted and the report reviewed and electronically signed by: PETRONA HOWARD MD on Apr 14 2024 12:12PM EST DIVISION OF RADIOLOGY * * *Final Report* * * DATE OF EXAM: Apr 14 2024 11:58AM WOX 5291 - XR CHEST 2V FRONTAL/LAT / PROCEDURE REASON: Acute cough * * * * Physician Interpretation * * * * EXAMINATION: CHEST RADIOGRAPH (2 VIEW FRONTAL & LATERAL) CLINICAL HISTORY: Acute cough MQ: XC2_6 EXAM DATE/TIME: 04/14/2024 11:58 AM COMPARISON: Chest x-ray of 08/20/2020 RESULT: Lines, tubes, and devices: None. Lungs and pleura: No consolidation. No lung mass. No pleural effusion. No pneumothorax. Cardiomediastinal silhouette: Normal cardiomediastinal silhouette. Bones and soft tissues: Partially visualized reverse left shoulder arthroplasty. DIVISION OF RADIOLOGY Provider, [facility] - 04/14/2024 * * *Final Report* * * DATE OF EXAM: Apr 14 2024 11:58AM WOX 5291 - XR CHEST 2V FRONTAL/LAT / PROCEDURE REASON: Acute cough * * * * Physician Interpretation * * * * EXAMINATION: CHEST RADIOGRAPH (2 VIEW FRONTAL & LATERAL) CLINICAL HISTORY: Acute cough MQ: XC2_6 EXAM DATE/TIME: 04/14/2024 11:58 AM COMPARISON: Chest x-ray of 08/20/2020 RESULT: Lines, tubes, and devices: None. Lungs and pleura: No consolidation. No lung mass. No pleural effusion. No pneumothorax. Cardiomediastinal silhouette: Normal cardiomediastinal silhouette. Bones and soft tissues: Partially visualized reverse left shoulder arthroplasty. IMPRESSION IMPRESSION: No acute radiographic abnormality. Linux Admin: AMILCAR Transcribe Date/Time: Apr 14 2024 12:11P Dictated by : PETRONA HOWARD MD This examination was interpreted and the report reviewed and electronically signed by: PETRONA HOWARD MD on Apr 14 2024 12:12PM EST [facility] Radiology Study observation (narrative) [facility] XR Chest PA and LateralOrder ed By: [facility] Provider on 04-14-2024 [facility] CNPNon 04-09-2024 CNPN Telephone (CARDWS) GASTON LAINEZ ([id number]) 1950 M Date Time Provider Department 04/09/24 KRUNAL BARRAGAN During your visit today, we recorded the following information about you: Chelsea Church MA 04/09/2024 8:29 AM Signed Patients , Marilynn, contacted the office with a patient update. States metoprolol was changed to take 12.5 mg (half a pill) last week and she reports the heart rate is better. It has been running in the 60's and 70's. If you need to speak with patient please contact them back at [phone]. Allergies As of Date: 04/09/2024 (No Known Allergies) Date Reviewed: 02/24/2024 Reviewed by: Lana Keith OCCA - Fully Assessed Reason for Visit: Patient Update [1234] Prescriptions as of 04/11/2024 - donepezil (ARICEPT) 5 mg tablet Take 1 tablet by mouth daily with breakfast. - tamsulosin (FLOMAX) 0.4 mg Take 1 capsule by mouth daily at bedtime. Patient should start on April 02, 2024. - Tadalafil (CIALIS) 10 mg tablet 1-2 tabs daily as needed - predniSONE (DELTASONE) 20 mg tablet Take 60 mg by mouth once daily. - OLANZapine (ZYPREXA) 2.5 mg tablet use 1 to 2 tablets at bedtime - busPIRone (BUSPAR) 15 mg tablet TAKE 1 TABLET BY MOUTH TWICE A DAY - fluticasone-salmeterol (WIXELA INHUB) 250-50 mcg/dose inhaler Inhale 1 Puff as instructed two times a day. - albuterol HFA (VENTOLIN HFA) 90 mcg/actuation inhaler Inhale 2 Puffs as instructed every 4 hours as needed for wheezing/shortness of breath. - metoprolol succinate ER (TOPROL XL) 25 mg 24 hr tablet Take 1 tablet by mouth once daily. - OTC PRODUCT Take 1 tablet by mouth once daily. PREVAGEN REGULAR STRENGTH - atorvastatin (LIPITOR) 40 mg tablet Take 1 tablet by mouth once daily. - MULTIVITAMIN ORAL Take by mouth once daily. - docusate sodium (COLACE) 100 mg capsule Take 1 capsule by mouth twice daily. 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] 10/24/2007 Minor depression [F32.A] 10/24/2007 Generalized anxiety disorder [F41.1] 10/24/2007 Disorders of bursae and tendons in shoulder reg*11/27/2008 12/02/2011 Mixed hyperlipidemia [E78.2] 11/27/2008 OCD (obsessive compulsive disorder) [F42.9] Disorder of prostate [N42.9] 02/24/2016 Primary insomnia [F51.01] 03/02/2016 History of marijuana use [F12.91] 03/02/2016 Well adult exam [Z00.00] 03/02/2016 Incomplete tear of left rotator cuff [M75.112] 03/29/2016 Arthritis, 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] 02/28/2017 Radicular pain of left lower extremity [M54.10] 03/10/2017 Acute midline low back pain with left-sided sci*03/10/2017 Screening for colon cancer [Z12.11] 03/10/2017 Colon cancer screening [Z12.11] 03/28/2017 Tubular adenoma of colon [D12.6] 01/30/2018 Vertigo [R42] 03/22/2018 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 FH: prostate cancer [Z80.42] 03/10/2020 SOB (shortness of breath) [R06.02] 01/06/2021 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 of miri*01/14/2021 Abnormal stress echocardiogram [R94.39] 01/14/2021 03/12/2021 H/O cardiac catheterization [Z98.890] 03/12/2021 Palpitations [R00.2] 03/12/2021 SVT (supraventricular tachycardia) (HCC) [I47.1*10/09/2021 BPH with obstruction/lower urinary tract sympto*06/06/2022 Visual hallucinations [R44.1] 09/06/2022 GERD (gastroesophageal reflux disease) [K21.9] 12/20/2022 S/P reverse total shoulder arthroplasty, left [*01/03/2023 Major depressive disorder, recurrent, mild (HCC*03/14/2023 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 Patient was started on donepezil in January and states that they were warned that this med with his Metoprolol could cause his heart to run to slow. is asking if Metoprolol needs decreased or if the patient needs a medication change. Currently taking Metoprolol 24 Daily. Marilynn instructed to got to go to the ED if patient starts having increased symptoms or if HR continues to decrease. Reviewed symptoms to monitor for with the patient's . Patient has dementia so Marilynn requesting to be called with instructions. THEA 05/23/23, next appt 05/21/24 Please advise, Jen Gaona, Jen Diallo RN 03/27/2024 11:54 AM Signed Elizabeth Knox APRN.PROMOTIONS REPRESENTATIVE You; [facility] Cardiology Pool; Mouna Parish MD16 minutes ago (10:50 AM) Reduce metoprolol to 12.5 mg (cut in half) and take at bedtime. Continue to monitor HR at home and symptoms. Update us in 1 week. May consider monitor or discontinuing metoprolol completely. Thank you, Elizabeth Knox APRN.Katerina Neri LPN 03/27/2024 12:21 PM Signed Marilynn notified of PROMOTIONS REPRESENTATIVE message. Verbalizes understanding. Katerina Dalton LPN Allergies As of Date: 03/27/2024 (No Known Allergies) Date Reviewed: 02/24/2024 Reviewed by: Lana Keith OCCA - Fully Assessed Reason for Visit: Patient Update [1234] Prescriptions as of 03/27/2024 - donepezil (ARICEPT) 5 mg tablet Take 1 tablet by mouth daily with breakfast. - tamsulosin (FLOMAX) 0.4 mg Take 1 capsule by mouth daily at bedtime. Patient should start on April 02, 2024. - Tadalafil (CIALIS) 10 mg tablet 1-2 tabs daily as needed - predniSONE (DELTASONE) 20 mg tablet Take 60 mg by mouth once daily. - OLANZapine (ZYPREXA) 2.5 mg tablet use 1 to 2 tablets at bedtime - busPIRone (BUSPAR) 15 mg tablet TAKE 1 TABLET BY MOUTH TWICE A DAY - fluticasone-salmeterol (WIXELA INHUB) 250-50 mcg/dose inhaler Inhale 1 Puff as instructed two times a day. - albuterol HFA (VENTOLIN HFA) 90 mcg/actuation inhaler Inhale 2 Puffs as instructed every 4 hours as needed for wheezing/shortness of breath. - metoprolol succinate ER (TOPROL XL) 25 mg 24 hr tablet Take 1 tablet by mouth once daily. - OTC PRODUCT Take 1 tablet by mouth once daily. PREVAGEN REGULAR STRENGTH - atorvastatin (LIPITOR) 40 mg tablet Take 1 tablet by mouth once daily. - MULTIVITAMIN ORAL Take by mouth once daily. - docusate sodium (COLACE) 100 mg capsule Take 1 capsule by mouth twice daily. 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] 10/24/2007 Minor depression [F32.A] 10/24/2007 Generalized anxiety disorder [F41.1] 10/24/2007 Disorders of bursae and tendons in shoulder reg*11/27/2008 12/02/2011 Mixed hyperlipidemia [E78.2] 11/27/2008 OCD (obsessive compulsive disorder) [F42.9] Disorder of prostate [N42.9] 02/24/2016 Primary insomnia [F51.01] 03/02/2016 History of marijuana use [F12.91] 03/02/2016 Well adult exam [Z00.00] 03/02/2016 Incomplete tear of left rotator cuff [M75.112] 03/29/2016 Arthritis, 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] 02/28/2017 Radicular pain of left lower extremity [M54.10] 03/10/2017 Acute midline low back pain with left-sided sci*03/10/2017 Screening for colon cancer [Z12.11] 03/10/2017 Colon cancer screening [Z12.11] 03/28/2017 Tubular adenoma of colon [D12.6] 01/30/2018 Vertigo [R42] 03/22/2018 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 FH: prostate cancer [Z80.42] 03/10/2020 SOB (shortness of breath) [R06.02] 01/06/2021 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 of miri*01/14/2021 Abnormal stress echocardiogram [R94.39] 01/14/2021 03/12/2021 H/O cardiac catheterization [Z98.890] 03/12/2021 Palpitations [R00.2] 03/12/2021 SVT (supraventricular tachycardia) (HCC) [I47.1*10/09/2021 BPH with obstruction/lower urinary tract sympto*06/06/2022 Visual hallucinations [R44.1] 09/06/2022 GERD (gastroesophageal reflux disease) [K21.9] 12/20/2022 S/P reverse total shoulder arthroplasty, left [*01/03/2023 Major depressive disorder, recurrent, mild (HCC*03/14/2023 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] 08/30/2023 Thoracic spine pain [M54.6] 02/14/2024 Encounter Status:Closed by KATERINA DALTON on 03/27/24 [facility] CNTHERAPYon 03-14-2024 CNTHERAPY OT/PT/Speech Visit ( PTWS) GASTON LAINEZ ([id number]) 1950 M Date Time Provider Department 03/14/24 7:45 AM VELASQUEZ RICHARDSON PTWS Date Time Provider Department Center 03/14/2024 7:45 AM [id number], COLIN PTWS Areln Navarro Reason for Visit: PT Discharge [752] Primary Visit Diagnosis:Thoracic spine pain [M54.6] Allergies As of Date: 03/14/2024 (No Known Allergies) Date Reviewed: 02/24/2024 Reviewed by: Lana Keith OCCA - Fully Assessed Prescriptions as of 03/14/2024 - donepezil (ARICEPT) 5 mg tablet Take 1 tablet by mouth daily with breakfast. - tamsulosin (FLOMAX) 0.4 mg Take 1 capsule by mouth daily at bedtime. Patient should start on April 02, 2024. - Tadalafil (CIALIS) 10 mg tablet 1-2 tabs daily as needed - predniSONE (DELTASONE) 20 mg tablet Take 60 mg by mouth once daily. - OLANZapine (ZYPREXA) 2.5 mg tablet use 1 to 2 tablets at bedtime - busPIRone (BUSPAR) 15 mg tablet TAKE 1 TABLET BY MOUTH TWICE A DAY - fluticasone-salmeterol (WIXELA INHUB) 250-50 mcg/dose inhaler Inhale 1 Puff as instructed two times a day. - albuterol HFA (VENTOLIN HFA) 90 mcg/actuation inhaler Inhale 2 Puffs as instructed every 4 hours as needed for wheezing/shortness of breath. - metoprolol succinate ER (TOPROL XL) 25 mg 24 hr tablet Take 1 tablet by mouth once daily. - OTC PRODUCT Take 1 tablet by mouth once daily. PREVAGEN REGULAR STRENGTH - atorvastatin (LIPITOR) 40 mg tablet Take 1 tablet by mouth once daily. - MULTIVITAMIN ORAL Take by mouth once daily. - docusate sodium (COLACE) 100 mg capsule Take 1 capsule by mouth twice daily. - polyethylene glycol 3350 (MIRALAX) 17 gram/dose powder 17g (1 scoop) with 8 oz daily as needed for constipation Change Management Expert: Therapy (PT/OT/Speech/Resp) ID: [id number] 03/14/2024 8:06 AM Author: VELASQUEZ RICHARDSON Signed by VELASQUEZ RICHARDSON PT on 03/14/2024 at 8:06 AM Document text: Program_ID:[id number] Access Code: [email or web address] URL: [email or web address] Date: 03-14-2024 Prepared By: Velasquez Richardson Program Notes Exercises - Hooklying Single Knee to Chest Stretch - 2 x daily - 5-7 x weekly - 3 sets - reps - Supine Double Knee to Chest - 2 x daily - 5-7 x weekly - 3 sets - reps - Seated Repeated Flexion - 2 x daily - 5-7 x weekly - 2 sets - 10-15 reps - Seated Lumbar Flexion Stretch - 2 x daily - 5-7 x weekly - 3 sets - reps - Standing Lower Cervical and Upper Thoracic Stretch - 2 x daily - 5-7 x weekly - 2-3 sets - reps - Seated Hamstring Stretch - 2 x daily - 5-7 x weekly - 2-3 sets - reps - Scapular Retraction with Resistance - 2 x daily - 5-7 x weekly - 2 sets - 10 reps Normal [facility] THERAPY NTon 03-14-2024 THERAPY NT HNO ID: [id number] Author: VELASQUEZ RICHARDSON PT Service: ? Author Type: Physical Therapist Type: Therapy (PT/OT/Speech/Resp) Filed: 03/14/2024 08:06 Note Text: Program_ID:[id number] Access Code: [email or web address] URL: [email or web address] Date: 03-14-2024 Prepared By: Velasquez Richardson Program Notes Exercises - Hooklying Single Knee to Chest Stretch - 2 x daily - 5-7 x weekly - 3 sets - reps - Supine Double Knee to Chest - 2 x daily - 5-7 x weekly - 3 sets - reps - Seated Repeated Flexion - 2 x daily - 5-7 x weekly - 2 sets - 10-15 reps - Seated Lumbar Flexion Stretch - 2 x daily - 5-7 x weekly - 3 sets - reps - Standing Lower Cervical and Upper Thoracic Stretch - 2 x daily - 5-7 x weekly - 2-3 sets - reps - Seated Hamstring Stretch - 2 x daily - 5-7 x weekly - 2-3 sets - reps - Scapular Retraction with Resistance - 2 x daily - 5-7 x weekly - 2 sets - 10 reps Normal [facility] CNTHERAPYon 03-06-2024 CNTHERAPY OT/PT/Speech Visit ( PTWS) GASTON LAINEZ ([id number]) 1950 M Date Time Provider Department 03/06/24 8:45 AM LORE SCHREIBER PTRENA Date Time Provider Department Center 03/06/2024 8:45 AM [id number] SCHREIBER Reason for Visit: Physical Therapy [503] Primary Visit Diagnosis:Thoracic spine pain [M54.6] Allergies As of Date: 03/06/2024 (No Known Allergies) Date Reviewed: 02/24/2024 Reviewed by: Lana Keith OCCA - Fully Assessed Prescriptions as of 03/06/2024 - donepezil (ARICEPT) 5 mg tablet Take 1 tablet by mouth daily with breakfast. - tamsulosin (FLOMAX) 0.4 mg Take 1 capsule by mouth daily at bedtime. Patient should start on April 02, 2024. - Tadalafil (CIALIS) 10 mg tablet 1-2 tabs daily as needed - predniSONE (DELTASONE) 20 mg tablet Take 60 mg by mouth once daily. - OLANZapine (ZYPREXA) 2.5 mg tablet use 1 to 2 tablets at bedtime - busPIRone (BUSPAR) 15 mg tablet TAKE 1 TABLET BY MOUTH TWICE A DAY - fluticasone-salmeterol (WIXELA INHUB) 250-50 mcg/dose inhaler Inhale 1 Puff as instructed two times a day. - albuterol HFA (VENTOLIN HFA) 90 mcg/actuation inhaler Inhale 2 Puffs as instructed every 4 hours as needed for wheezing/shortness of breath. - metoprolol succinate ER (TOPROL XL) 25 mg 24 hr tablet Take 1 tablet by mouth once daily. - OTC PRODUCT Take 1 tablet by mouth once daily. PREVAGEN REGULAR STRENGTH - atorvastatin (LIPITOR) 40 mg tablet Take 1 tablet by mouth once daily. - MULTIVITAMIN ORAL Take by mouth once daily. - docusate sodium (COLACE) 100 mg capsule Take 1 capsule by mouth twice daily. - polyethylene glycol 3350 (MIRALAX) 17 gram/dose powder 17g (1 scoop) with 8 oz daily as needed for constipation Normal [facility] CNTHERAPYon 02-28-2024 CNTHERAPY OT/PT/Speech Visit ( PTWS) GASTON LAINEZ ([id number]) 1950 M Date Time Provider Department 02/28/24 11:45 AM LORE SCHREIBER PTRENA Date Time Provider Department Center 02/28/2024 11:45 AM [id number] SCHREIBER Reason for Visit: Physical Therapy [503] Primary Visit Diagnosis:Thoracic spine pain [M54.6] Allergies As of Date: 02/28/2024 (No Known Allergies) Date Reviewed: 02/24/2024 Reviewed by: Lana Keith OCCA - Fully Assessed Prescriptions as of 02/28/2024 - donepezil (ARICEPT) 5 mg tablet Take 1 tablet by mouth daily with breakfast. - tamsulosin (FLOMAX) 0.4 mg Take 1 capsule by mouth daily at bedtime. Patient should start on April 02, 2024. - Tadalafil (CIALIS) 10 mg tablet 1-2 tabs daily as needed - predniSONE (DELTASONE) 20 mg tablet Take 60 mg by mouth once daily. - OLANZapine (ZYPREXA) 2.5 mg tablet use 1 to 2 tablets at bedtime - busPIRone (BUSPAR) 15 mg tablet TAKE 1 TABLET BY MOUTH TWICE A DAY - fluticasone-salmeterol (WIXELA INHUB) 250-50 mcg/dose inhaler Inhale 1 Puff as instructed two times a day. - albuterol HFA (VENTOLIN HFA) 90 mcg/actuation inhaler Inhale 2 Puffs as instructed every 4 hours as needed for wheezing/shortness of breath. - metoprolol succinate ER (TOPROL XL) 25 mg 24 hr tablet Take 1 tablet by mouth once daily. - OTC PRODUCT Take 1 tablet by mouth once daily. PREVAGEN REGULAR STRENGTH - atorvastatin (LIPITOR) 40 mg tablet Take 1 tablet by mouth once daily. - MULTIVITAMIN ORAL Take by mouth once daily. - docusate sodium (COLACE) 100 mg capsule Take 1 capsule by mouth twice daily. - polyethylene glycol 3350 (MIRALAX) 17 gram/dose powder 17g (1 scoop) with 8 oz daily as needed for constipation Change Management Expert: Therapy (PT/OT/Speech/Resp) ID: [id number] 02/28/2024 12:11 PM Author: LORE SCHREIBER Signed by LORE SCHREIBER CHIEF RELAY TESTER on 02/28/2024 at 12:12 PM Document text: Program_ID:[id number] Access Code: [email or web address] URL: [email or web address] Date: 02-28-2024 Prepared By: Velasquez Richardson Program Notes Exercises - Hooklying Single Knee to Chest Stretch - 2 x daily - 5-7 x weekly - 3 sets - reps - Supine Double Knee to Chest - 2 x daily - 5-7 x weekly - 3 sets - reps - Seated Repeated Flexion - 2 x daily - 5-7 x weekly - 2 sets - 10-15 reps - Seated Lumbar Flexion Stretch - 2 x daily - 5-7 x weekly - 3 sets - reps - Standing Lower Cervical and Upper Thoracic Stretch - 2 x daily - 5-7 x weekly - 2-3 sets - reps - Seated Scapular Retraction - 2 x daily - 5-7 x weekly - 2 sets - 10 reps - Seated Hamstring Stretch - 1 x daily - 7 x weekly - 1 sets - 3 reps - Scapular Retraction with Resistance - 2 x daily - 7 x weekly - 2 sets - 10 reps Normal [facility] THERAPY NTon 02-28-2024 THERAPY NT HNO ID: [id number] Author: LORE SCHREIBER PTA Service: ? Author Type: Sales Advisor Type: Therapy (PT/OT/Speech/Resp) Filed: 02/28/2024 12:12 Note Text: Program_ID:[id number] Access Code: [email or web address] URL: [email or web address] Date: 02-28-2024 Prepared By: Velasquez Richardson Program Notes Exercises - Hooklying Single Knee to Chest Stretch - 2 x daily - 5-7 x weekly - 3 sets - reps - Supine Double Knee to Chest - 2 x daily - 5-7 x weekly - 3 sets - reps - Seated Repeated Flexion - 2 x daily - 5-7 x weekly - 2 sets - 10-15 reps - Seated Lumbar Flexion Stretch - 2 x daily - 5-7 x weekly - 3 sets - reps - Standing Lower Cervical and Upper Thoracic Stretch - 2 x daily - 5-7 x weekly - 2-3 sets - reps - Seated Scapular Retraction - 2 x daily - 5-7 x weekly - 2 sets - 10 reps - Seated Hamstring Stretch - 1 x daily - 7 x weekly - 1 sets - 3 reps - Scapular Retraction with Resistance - 2 x daily - 7 x weekly - 2 sets - 10 reps Normal [facility] CNOVon 02-24-2024 CNOV Office Visit (DANIELDinah ) GASTON LAINEZ ([id number]) 1950 M Date Time Provider Department 02/24/24 10:45 AM SHAWANDA HALE During your visit today, we recorded the following information about you: Pulse Blood pressure Weight 45/minute 141/82 77.9 kg Lana Keith OCCA 02/24/2024 10:45 AM Signed Gaston Lainez is a 73 year old year old man accompanied by: spouse. Do you have any changes or new concerns you would like to address at the visit today? Med update Vital Signs: BP 141/82 Pulse (!) 45 Wt 77.9 kg (171 lb 11.2 oz) BMI 23.29 kg/m? Shawanda Hale, [employer]OTIONS REPRESENTATIVE 02/29/2024 2:05 PM Signed Gaston Lainez 1950 [id number] [facility] [id number] [facility] FOLLOW-UP NOTE Accompanied by: spouse (Marilynn) Advanced Directives: SUBJECTIVE Gaston Lainez is a 73 year old male seen today for a follow up visit. Gaston Lainez is being followed for Major neurocognitive disorder, likely multifactorial given complex history of TBI, bipolar disorder with psychotic episodes, but significant generalized cortical atrophy including hippocampal atrophy on MRI brain is concerning for a neurodegenerative condition such as Alzheimer's disease. Possibility of comorbid LBD remains but difficult to distinguish given complex history. Patient was last seen on 01/27/24. At that time the impression and agreed upon plan of care were as follows, included here in italics. (F03.90) Major neurocognitive disorder (HCC) (primary encounter diagnosis) Comment: likely multifactorial given complex history of TBI, bipolar disorder with psychotic episodes, but significant generalized cortical atrophy including hippocampal atrophy on MRI brain is concerning for a neurodegenerative condition such as Alzheimer's disease. Possibility of comorbid LBD remains but difficult to distinguish given complex history. Education provided on disease including course/progression, healthy lifestyle, etc. We discussed and agreed upon the following plan of care. Plan: Increase Aricept to 10 mg once daily with breakfast We will consider adding in Namenda (memantine) for preservation of function in those with dementia at next follow up visit Cognitively healthy lifestyle. See the section below Ways to keep your brain healthy A heart healthy diet is a brain healthy diet. The MIND Diet is an evidence based diet proven to slow and protect against cognitive decline. See the section MIND Diet Guidelines below for more information. Follow up 02/24/24 at 12:45 pm to review response and tolerance to increased Aricept 10 mg dose, consider addition of Namenda (memantine), and then plan for transitioning treatment maintenance locally to [facility] Kor[facility]. (R44.1) Visual hallucinations Comment: reduced in interim Plan: donepezil (ARICEPT) 10 mg tablet (R45.1) Restlessness and agitation Comment: reduces in interim Plan: donepezil (ARICEPT) 10 mg tablet (F22) Delusions (HCC) Comment: reduced in interim Plan: donepezil (ARICEPT) 10 mg tablet Current treatment plan includes: Buspar 15 mg twice daily Zyprexa 2.5 mg 1 - 2 tablets at bedtime Aricept 10 mg daily with breakfast Estimated Creatinine Clearance: 79 mL/min (based on SCr of 0.9 mg/dL). (Ok for possible initiation of Namenda) Today, the patient/caregiver reports the following changes/concerns in the interim. CC: I think he's doing good Response/tolerance to Aricept 10 mg once daily: caused bradycardia (bpm in 40's) and fatigue. Spouse reduced dose back to 5 mg and fatigue has improved. Perhaps increased secretions rhinorrhea and sialorrhea with Aricept) Pulse today is 45 AND 46 bpm (rechecked manually) He denies symptoms of lightheadedness/dizziness. Still may awaken form dreams and think something has happened which hasn't. No clear delusions or hallucinations while awake Other Interval history: Memory/Cognition: Patient describes their memory/cognition as better Family reports seems like it's a little better. Functional Status: stable in the interim 5-6: Activities of Daily Living, Driving Functional Assessment: independent with ADLs and assistance/dependent with IADLs Living Situation AND Setting: house, with spouse Is the patient left alone? yes Social Work or other Agencies involved: DISHA Banuelos see 02/06/24 note Safety Assessment: Emergency Response/Aware of 911: knows to call fire department but doesn't know 911 Medical Alert System: none, provided info on emergency response systems Driving Status/Concerns: not driving Wandering behavior: none Firearms access: hunting rifles/locked, unloaded Mood: Patient describes their mood as pretty good. Anxiety: I worry about things, job related stuff Behavior: Psychomotor Agitation: occasionally (more content not included)... Normal [facility] CNTHERAPYon 02-21-2024 CNTHERAPY OT/PT/Speech Visit ( PTWS) GASTON LAINEZ ([id number]) 1950 M Date Time Provider Department 02/21/24 10:15 AM LORE SCHREIBER Date Time Provider Department Center 02/21/2024 10:15 AM [id number], MARIAH PTRENA Navarro Reason for Visit: Physical Therapy [503] Primary Visit Diagnosis:Thoracic spine pain [M54.6] Allergies As of Date: 02/21/2024 (No Known Allergies) Date Reviewed: 02/07/2024 Reviewed by: Lis Wells LPN - Fully Assessed Prescriptions as of 02/22/2024 - tamsulosin (FLOMAX) 0.4 mg Take 1 capsule by mouth daily at bedtime. Patient should start on April 02, 2024. - Tadalafil (CIALIS) 10 mg tablet 1-2 tabs daily as needed - predniSONE (DELTASONE) 20 mg tablet Take 60 mg by mouth once daily. - donepezil (ARICEPT) 10 mg tablet Take 1 tablet by mouth daily with breakfast. - OLANZapine (ZYPREXA) 2.5 mg tablet use 1 to 2 tablets at bedtime - busPIRone (BUSPAR) 15 mg tablet TAKE 1 TABLET BY MOUTH TWICE A DAY - fluticasone-salmeterol (WIXELA INHUB) 250-50 mcg/dose inhaler Inhale 1 Puff as instructed two times a day. - albuterol HFA (VENTOLIN HFA) 90 mcg/actuation inhaler Inhale 2 Puffs as instructed every 4 hours as needed for wheezing/shortness of breath. - metoprolol succinate ER (TOPROL XL) 25 mg 24 hr tablet Take 1 tablet by mouth once daily. - OTC PRODUCT Take 1 tablet by mouth once daily. PREVAGEN REGULAR STRENGTH - atorvastatin (LIPITOR) 40 mg tablet Take 1 tablet by mouth once daily. - MULTIVITAMIN ORAL Take by mouth once daily. - docusate sodium (COLACE) 100 mg capsule Take 1 capsule by mouth twice daily. - polyethylene glycol 3350 (MIRALAX) 17 gram/dose powder 17g (1 scoop) with 8 oz daily as needed for constipation Change Management Expert: Therapy (PT/OT/Speech/Resp) ID: [id number] 02/21/2024 10:51 AM Author: LORE SCHREIBER Signed by LORE SCHREIBER CHIEF RELAY TESTER on 02/21/2024 at 10:51 AM Document text: Program_ID:[id number] Access Code: [email or web address] URL: https://[employer] Offer/ Date: 02-21-2024 Prepared By: Velasquez Richardson Program Notes Exercises - Hooklying Single Knee to Chest Stretch - 2 x daily - 5-7 x weekly - 3 sets - reps - Supine Double Knee to Chest - 2 x daily - 5-7 x weekly - 3 sets - reps - Seated Repeated Flexion - 2 x daily - 5-7 x weekly - 2 sets - 10-15 reps - Seated Lumbar Flexion Stretch - 2 x daily - 5-7 x weekly - 3 sets - reps - Standing Lower Cervical and Upper Thoracic Stretch - 2 x daily - 5-7 x weekly - 2-3 sets - reps - Seated Scapular Retraction - 2 x daily - 5-7 x weekly - 2 sets - 10 reps - Seated Hamstring Stretch - 1 x daily - 7 x weekly - 1 sets - 3 reps Normal [facility] THERAPY NTon 02-21-2024 THERAPY NT HNO ID: [id number] Author: LORE SCHREIBER PTA Service: ? Author Type: Sales Advisor Type: Therapy (PT/OT/Speech/Resp) Filed: 02/21/2024 10:51 Note Text: Program_ID:[id number] Access Code: [email or web address] URL: https://Stand Offer/ Date: 02-21-2024 Prepared By: Velasquez Richardson Program Notes Exercises - Hooklying Single Knee to Chest Stretch - 2 x daily - 5-7 x weekly - 3 sets - reps - Supine Double Knee to Chest - 2 x daily - 5-7 x weekly - 3 sets - reps - Seated Repeated Flexion - 2 x daily - 5-7 x weekly - 2 sets - 10-15 reps - Seated Lumbar Flexion Stretch - 2 x daily - 5-7 x weekly - 3 sets - reps - Standing Lower Cervical and Upper Thoracic Stretch - 2 x daily - 5-7 x weekly - 2-3 sets - reps - Seated Scapular Retraction - 2 x daily - 5-7 x weekly - 2 sets - 10 reps - Seated Hamstring Stretch - 1 x daily - 7 x weekly - 1 sets - 3 reps Normal [facility] [id number] 02-14-2024 [id number] HNO ID: [id number] Author: VELASQUEZ RICHARDSON PT Service: ? Author Type: Physical Therapist Type: [id number] Filed: 02/14/2024 12:39 Note Text: [facility] Physical Therapy Plan of Care Certification Patient Name: Gaston Lainez : 1950 [facility] #: [id number] Date: 02/14/2024 To: Lori Chauhan MD From Therapist: Velasquez Richardson PT RE: Patient Certification/ Recertification Your review, approval and electronic signature are required in order to comply with Payor: MEDICARE / Plan: MEDICARE A AND B / Product Type: Medicare / regulations. The identified Physical Therapy PLAN OF CARE for the patient is as follows: M54.6 Thoracic spine pain (primary encounter diagnosis) PLAN OF CARE: Assessment: Gaston Lainez presents with chief complaint of upper thoracic pain that interferes with walking, physical activities, lifting, heavy exertion, standing (Household mgmt chores.). Pain presents muscular in nature. He presents with impairments in ADL's/IADLs, flexibility, independence in exercise, overall function, posture, range of motion, soft tissue healing, symptom management, and tissue tenderness. PROMIS? (Patient-Reported Outcomes Measurement Information System) scores were reviewed and identified as a rehabilitation concern. Prognosis for therapy is Excellent due to: current objective clinical presentation, good overall health status, acuteness of condition, positive past response to therapy, within-session changes, good support system/ coping skills . Patient will benefit from c/s paraspinal and periscap strengthening and thoracic mobility. He will benefit from skilled therapy services to meet the goals established for this plan of care as noted below. Classification Pain Mechanism Classification: Nociceptive Low Back Pain Classification: Movement Control Goals for Episode of Care: created on 02/14/24 through 03/27/24 Patient reported outcome of self-efficacy will increase T-score by a minimum 5 points. [place] in home exercise program. Patient will decrease pain rating by 2 points to meet minimal clinical important difference for numeric pain rating scale. Restore pain-free thoracic and lumbar ROM to WNL to allow for improved ADL/IADLs Maintain proper spine posture throughout session during sitting / standing / walking to demonstrate increased awareness and decreased overall pain. Improve B Hamstring flexibility for improved bending. Patient will report complete return to prior level of function without limitations in 6 weeks or less. Patient Goals: Return to PLOF and exercise, alleviate pain. Planned Interventions, Frequency, and Duration: Current Frequency: 1x/week Duration: 4 weeks Total Number of Visits Planned: 4 Planned Treatment Interventions: Therapeutic exercise (78352), Neuromuscular re-education (62130), Manual therapy (31809), Therapeutic activities (38120), Self-skilled nursing management (24071), Patient/Family/Caregiver Education, Body Mechanics Training PLAN FOR NEXT VISIT: Assess response to HEP; resisted scapular rows and shoulder pulldowns, thoracic mobility. Patient demonstrates good understanding of plan of care and treatment. The above goals and plan of care were discussed and agreed upon by patient/family. For further details regarding this patient refer to the Physical Therapy electronically documented visit dated 02/14/2024. Provider Attestation I have reviewed the treatment plan for Gaston Lainez, CCF# [id number] for the period of 02/14/24 -- 03/20/24, established on 02/14/2024. Signature certifies the need for therapy services. Normal [facility] CNTHERAPYon 02-14-2024 CNTHERAPY OT/PT/Speech Visit ( PTWS) GASTON LAINEZ ([id number]) 1950 M Date Time Provider Department 02/14/24 8:30 AM VELASQUEZ RICHARDSON PTWS Date Time Provider Department Center 02/14/2024 8:30 AM [id number], COLIN PTWS Arlen Emerson Reason for Visit: PT Eval [747] Primary Visit Diagnosis:Thoracic spine pain [M54.6] Allergies As of Date: 02/14/2024 (No Known Allergies) Date Reviewed: 02/07/2024 Reviewed by: Lis Wells LPN - Fully Assessed Prescriptions as of 02/14/2024 - tamsulosin (FLOMAX) 0.4 mg Take 1 capsule by mouth daily at bedtime. Patient should start on April 02, 2024. - Tadalafil (CIALIS) 10 mg tablet 1-2 tabs daily as needed - predniSONE (DELTASONE) 20 mg tablet Take 60 mg by mouth once daily. - donepezil (ARICEPT) 10 mg tablet Take 1 tablet by mouth daily with breakfast. - OLANZapine (ZYPREXA) 2.5 mg tablet use 1 to 2 tablets at bedtime - busPIRone (BUSPAR) 15 mg tablet TAKE 1 TABLET BY MOUTH TWICE A DAY - fluticasone-salmeterol (WIXELA INHUB) 250-50 mcg/dose inhaler Inhale 1 Puff as instructed two times a day. - albuterol HFA (VENTOLIN HFA) 90 mcg/actuation inhaler Inhale 2 Puffs as instructed every 4 hours as needed for wheezing/shortness of breath. - metoprolol succinate ER (TOPROL XL) 25 mg 24 hr tablet Take 1 tablet by mouth once daily. - OTC PRODUCT Take 1 tablet by mouth once daily. PREVAGEN REGULAR STRENGTH - atorvastatin (LIPITOR) 40 mg tablet Take 1 tablet by mouth once daily. - MULTIVITAMIN ORAL Take by mouth once daily. - docusate sodium (COLACE) 100 mg capsule Take 1 capsule by mouth twice daily. - polyethylene glycol 3350 (MIRALAX) 17 gram/dose powder 17g (1 scoop) with 8 oz daily as needed for constipation Change Management Expert: Therapy (PT/OT/Speech/Resp) ID: [id number] 02/14/2024 9:09 AM Author: VELASQUEZ RICHARDSON Signed by VELASQUEZ RICHARDSON PT on 02/14/2024 at 9:09 AM Document text: Program_ID:[id number] Access Code: [email or web address] URL: https://Stand Offer/ Date: 02-14-2024 Prepared By: Velasquez Richardson Program Notes Exercises - Hooklying Single Knee to Chest Stretch - 2 x daily - 5-7 x weekly - 3 sets - reps - Supine Double Knee to Chest - 2 x daily - 5-7 x weekly - 3 sets - reps - Seated Repeated Flexion - 2 x daily - 5-7 x weekly - 2 sets - 10-15 reps - Seated Lumbar Flexion Stretch - 2 x daily - 5-7 x weekly - 3 sets - reps - Standing Lower Cervical and Upper Thoracic Stretch - 2 x daily - 5-7 x weekly - 2-3 sets - reps - Seated Scapular Retraction - 2 x daily - 5-7 x weekly - 2 sets - 10 reps Normal [facility] THERAPY NTon 02-14-2024 THERAPY NT HNO ID: [id number] Author: VELASQUEZ RICHARDSON, PT Service: ? Author Type: Physical Therapist Type: Therapy (PT/OT/Speech/Resp) Filed: 02/14/2024 09:09 Note Text: Program_ID:[id number] Access Code: [email or web address] URL: https://Stand Offer/ Date: 02-14-2024 Prepared By: Velasquez Richardson Program Notes Exercises - Hooklying Single Knee to Chest Stretch - 2 x daily - 5-7 x weekly - 3 sets - reps - Supine Double Knee to Chest - 2 x daily - 5-7 x weekly - 3 sets - reps - Seated Repeated Flexion - 2 x daily - 5-7 x weekly - 2 sets - 10-15 reps - Seated Lumbar Flexion Stretch - 2 x daily - 5-7 x weekly - 3 sets - reps - Standing Lower Cervical and Upper Thoracic Stretch - 2 x daily - 5-7 x weekly - 2-3 sets - reps - Seated Scapular Retraction - 2 x daily - 5-7 x weekly - 2 sets - 10 reps Normal [facility] CNOVon 02-07-2024 CNOV Office Visit (UROLWS ) GASTON LAINEZ ([id number]) 1950 M Date Time Provider Department 02/07/24 9:30 AM RUSSELL PRASAD UROLWS During your visit today, we recorded the following information about you: Temperature Pulse Respiration Blood pressure 98.4 degrees 56/minute 14/minute 104/74 Weight Height 78.8 kg 1.829 m Lis Wells LPN 02/07/2024 7:38 PM Signed Verified name and date of . CC Post Void Residual HPI: Gaston Lainez is a 73 year old male. The patient is here now for an appointment with RORY Burris MT, PA-COV. Procedure: Explained procedure to patient and verbalizes understanding. Performed a PVR. Patient urinated and instructed to empty bladder as much as possible just prior to having PVR done using bladder ultrasound scanner. Results of scan: 181 mL The patient tolerated the procedure well. Plan: Appointment with Russell. Russell Prasad PA-C 02/07/2024 10:04 AM Signed > 1 year Appt w/ BRORY Youngblood MT, PA-C for annual follow-up and refills. Russell Prasad PA-C 02/07/2024 7:38 PM Signed [facility] EST PATIENT CLINIC NOTE NAME: Gaston Lainez CHIEF COMPLAINT: Nocturia and Urgency HISTORY OF PRESENT ILLNESS: Gaston Lainez is a 73 year old male presenting follow-up for Nocturia and Urgency He continues Flomax and PVR is 181 ml, higher than previous but he feels empty will continue to monitor Likely he has been getting up for other reasons and then gotten into habit of getting up 4 times over an extended time He Increased water intake 48-60 oz water and has improved PSA - 1.56 LUTS: Improved with increase in Water intake Other symptoms: LABS: PSA (ng/mL) Date Value 03/17/2020 1.32 02/22/2019 1.23 02/24/2017 1.29 02/28/2016 1.81 PSA Screening (ng/mL) Date Value 10/05/2023 1.56 10/21/2022 3.13 MEDICATIONS: Tadalafil (CIALIS) 10 mg tablet 1-2 tabs daily as needed donepezil (ARICEPT) 10 mg tablet Take 1 tablet by mouth daily with breakfast. OLANZapine (ZYPREXA) 2.5 mg tablet use 1 to 2 tablets at bedtime busPIRone (BUSPAR) 15 mg tablet TAKE 1 TABLET BY MOUTH TWICE A DAY fluticasone-salmeterol (WIXELA INHUB) 250-50 mcg/dose inhaler Inhale 1 Puff as instructed two times a day. albuterol HFA (VENTOLIN HFA) 90 mcg/actuation inhaler Inhale 2 Puffs as instructed every 4 hours as needed for wheezing/shortness of breath. metoprolol succinate ER (TOPROL XL) 25 mg 24 hr tablet Take 1 tablet by mouth once daily. atorvastatin (LIPITOR) 40 mg tablet Take 1 tablet by mouth once daily. MULTIVITAMIN ORAL Take by mouth once daily. docusate sodium (COLACE) 100 mg capsule Take 1 capsule by mouth twice daily. [START ON 04/02/2024] tamsulosin (FLOMAX) 0.4 mg Take 1 capsule by mouth daily at bedtime. Patient should start on April 02, 2024. predniSONE (DELTASONE) 20 mg tablet Take 60 mg by mouth once daily. (Patient not taking: Reported on 02/07/2024) OTC PRODUCT Take 1 tablet by mouth once daily. PREVAGEN REGULAR STRENGTH (Patient not taking: Reported on 02/07/2024) polyethylene glycol 3350 (MIRALAX) 17 gram/dose powder 17g (1 scoop) with 8 oz daily as needed for constipation PAST MEDICAL HISTORY: PAST MEDICAL HISTORY Diagnosis Date Abnormal stress echocardiogram 01/14/2021 01/21/[address] Barragan: right dominant. LMT min luminal, LAD mild diffuse, LCx mild luminal with large caliber nondominant vessel extending into a single large obtuse marginal branch, proximal vessel is mildly calcified +mild luminal irreg, RCA 40% Large-caliber dominant vessel: moderate calcification from the proximal to mid vessel, mild diffuse ectatic disease proximal.The ostium of the Anxiety state, unspecified 10/24/2007 Benign paroxysmal positional vertigo one remote episode Bunion Chronic obstructive asthma, unspecified 10/24/2007 Depression likely bipolar disorder Depressive disorder, not elsewhere classified 10/24/2007 Generalized anxiety disorder 10/24/2007 History of marijuana use 03/02/2016 Quit 08/2015 Hypermobility syndrome Mild coronary artery disease Mixed hyperlipidemia 11/27/2008 Nontraumatic rupture of tendons of biceps (long head) R, 10/07 L OCD (obsessive compulsive disorder) Pneumonia, organism unspecified(486) 11/2001 bilateral: cleared Primary insomnia 03/02/2016 REVIEW OF SYSTEMS: GENERAL: No fever, chills, weight loss, or fatigue. PHYSICAL EXAMINATION: Blood pressure 104/74, pulse (!) 56, temperature 36.9 ?C (98.4 ?F), temperature source Temporal, resp. rate 14, height 182.9 cm (6'), weight 78.8 kg (173 lb 12.8 oz), SpO2 99%. GENERAL: WNL nutrition, no deformities, healthy appearing PROBLEM LIST REVIEW: Yes LABS: Results for orders placed or performed in visit on 02/07/24 UA DIP, URINE (POC) Result Value Ref Range (more content not included)... Normal [facility] Trisha 02-07-2024 [facility] Telephone ([facility]) TALGASTON Barnhart ([id number]) 1950 M Date Time Provider Department 02/07/24 SHAWANDA HALE During your visit today, we recorded the following information about you: Mitch Peters RN 02/07/2024 1:26 PM Signed LVM for patient spouse regarding concerns around aricept. Callback number provided. Mitch Peters RN Allergies As of Date: 02/07/2024 (No Known Allergies) Date Reviewed: 02/07/2024 Reviewed by: Lis Wells LPN - Fully Assessed Prescriptions as of 02/07/2024 - tamsulosin (FLOMAX) 0.4 mg Take 1 capsule by mouth daily at bedtime. Patient should start on April 02, 2024. - Tadalafil (CIALIS) 10 mg tablet 1-2 tabs daily as needed - predniSONE (DELTASONE) 20 mg tablet Take 60 mg by mouth once daily. - donepezil (ARICEPT) 10 mg tablet Take 1 tablet by mouth daily with breakfast. - OLANZapine (ZYPREXA) 2.5 mg tablet use 1 to 2 tablets at bedtime - busPIRone (BUSPAR) 15 mg tablet TAKE 1 TABLET BY MOUTH TWICE A DAY - fluticasone-salmeterol (WIXELA INHUB) 250-50 mcg/dose inhaler Inhale 1 Puff as instructed two times a day. - albuterol HFA (VENTOLIN HFA) 90 mcg/actuation inhaler Inhale 2 Puffs as instructed every 4 hours as needed for wheezing/shortness of breath. - metoprolol succinate ER (TOPROL XL) 25 mg 24 hr tablet Take 1 tablet by mouth once daily. - OTC PRODUCT Take 1 tablet by mouth once daily. PREVAGEN REGULAR STRENGTH - atorvastatin (LIPITOR) 40 mg tablet Take 1 tablet by mouth once daily. - MULTIVITAMIN ORAL Take by mouth once daily. - docusate sodium (COLACE) 100 mg capsule Take 1 capsule by mouth twice daily. - polyethylene glycol 3350 (MIRALAX) 17 gram/dose powder 17g (1 scoop) with 8 oz daily as needed for constipation Problem List As Of Date 02/07/2024 Noted Resolved Hypermobility syndrome [M35.7] 03/20/2007 Bunion [M21.619] 03/20/2007 COPD, mild (HCC) [J44.9] 10/24/2007 Minor depression [F32.A] 10/24/2007 Generalized anxiety disorder [F41.1] 10/24/2007 Disorders of bursae and tendons in shoulder reg*11/27/2008 12/02/2011 Mixed hyperlipidemia [E78.2] 11/27/2008 OCD (obsessive compulsive disorder) [F42.9] Disorder of prostate [N42.9] 02/24/2016 Primary insomnia [F51.01] 03/02/2016 History of marijuana use [F12.91] 03/02/2016 Well adult exam [Z00.00] 03/02/2016 Incomplete tear of left rotator cuff [M75.112] 03/29/2016 Arthritis, 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] 02/28/2017 Radicular pain of left lower extremity [M54.10] 03/10/2017 Acute midline low back pain with left-sided sci*03/10/2017 Screening for colon cancer [Z12.11] 03/10/2017 Colon cancer screening [Z12.11] 03/28/2017 Tubular adenoma of colon [D12.6] 01/30/2018 Vertigo [R42] 03/22/2018 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 FH: prostate cancer [Z80.42] 03/10/2020 SOB (shortness of breath) [R06.02] 01/06/2021 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 of miri*01/14/2021 Abnormal stress echocardiogram [R94.39] 01/14/2021 03/12/2021 H/O cardiac catheterization [Z98.890] 03/12/2021 Palpitations [R00.2] 03/12/2021 SVT (supraventricular tachycardia) (HCC) [I47.1*10/09/2021 BPH with obstruction/lower urinary tract sympto*06/06/2022 Visual hallucinations [R44.1] 09/06/2022 GERD (gastroesophageal reflux disease) [K21.9] 12/20/2022 S/P reverse total shoulder arthroplasty, left [*01/03/2023 Major depressive disorder, recurrent, mild (HCC*03/14/2023 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 . No acute changes. If pain continues, can consider physical therapy. Tita Burger LPN 02/07/2024 1:02 PM Signed LEFT MESSAGE FOR PATIENT TO CALL BACK /Tita Varghese LPN, LPN 02/07/2024 3:54 PM Signed Pt's notified of results. reports pt is already set up for PT. Tita Burger LPN Allergies As of Date: 02/07/2024 (No Known Allergies) Date Reviewed: 02/07/2024 Reviewed by: Lis Wells LPN - Fully Assessed Reason for Visit: Results [95] Prescriptions as of 02/07/2024 - tamsulosin (FLOMAX) 0.4 mg Take 1 capsule by mouth daily at bedtime. Patient should start on April 02, 2024. - Tadalafil (CIALIS) 10 mg tablet 1-2 tabs daily as needed - predniSONE (DELTASONE) 20 mg tablet Take 60 mg by mouth once daily. - donepezil (ARICEPT) 10 mg tablet Take 1 tablet by mouth daily with breakfast. - OLANZapine (ZYPREXA) 2.5 mg tablet use 1 to 2 tablets at bedtime - busPIRone (BUSPAR) 15 mg tablet TAKE 1 TABLET BY MOUTH TWICE A DAY - fluticasone-salmeterol (WIXELA INHUB) 250-50 mcg/dose inhaler Inhale 1 Puff as instructed two times a day. - albuterol HFA (VENTOLIN HFA) 90 mcg/actuation inhaler Inhale 2 Puffs as instructed every 4 hours as needed for wheezing/shortness of breath. - metoprolol succinate ER (TOPROL XL) 25 mg 24 hr tablet Take 1 tablet by mouth once daily. - OTC PRODUCT Take 1 tablet by mouth once daily. PREVAGEN REGULAR STRENGTH - atorvastatin (LIPITOR) 40 mg tablet Take 1 tablet by mouth once daily. - MULTIVITAMIN ORAL Take by mouth once daily. - docusate sodium (COLACE) 100 mg capsule Take 1 capsule by mouth twice daily. - polyethylene glycol 3350 (MIRALAX) 17 gram/dose powder 17g (1 scoop) with 8 oz daily as needed for constipation Problem List As Of Date 02/07/2024 Noted Resolved Hypermobility syndrome [M35.7] 03/20/2007 Bunion [M21.619] 03/20/2007 COPD, mild (HCC) [J44.9] 10/24/2007 Minor depression [F32.A] 10/24/2007 Generalized anxiety disorder [F41.1] 10/24/2007 Disorders of bursae and tendons in shoulder reg*11/27/2008 12/02/2011 Mixed hyperlipidemia [E78.2] 11/27/2008 OCD (obsessive compulsive disorder) [F42.9] Disorder of prostate [N42.9] 02/24/2016 Primary insomnia [F51.01] 03/02/2016 History of marijuana use [F12.91] 03/02/2016 Well adult exam [Z00.00] 03/02/2016 Incomplete tear of left rotator cuff [M75.112] 03/29/2016 Arthritis, 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] 02/28/2017 Radicular pain of left lower extremity [M54.10] 03/10/2017 Acute midline low back pain with left-sided sci*03/10/2017 Screening for colon cancer [Z12.11] 03/10/2017 Colon cancer screening [Z12.11] 03/28/2017 Tubular adenoma of colon [D12.6] 01/30/2018 Vertigo [R42] 03/22/2018 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 FH: prostate cancer [Z80.42] 03/10/2020 SOB (shortness of breath) [R06.02] 01/06/2021 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 of miri*01/14/2021 Abnormal stress echocardiogram [R94.39] 01/14/2021 03/12/2021 H/O cardiac catheterization [Z98.890] 03/12/2021 Palpitations [R00.2] 03/12/2021 SVT (supraventricular tachycardia) ([facility]) [I47.1*10/09/2021 BPH with obstruction/lower urinary tract sympto*06/06/2022 Visual hallucinations [R44.1] 09/06/2022 GERD (gastroesophageal reflux disease) [K21.9] 12/20/2022 S/P reverse total shoulder arthroplasty, left [*01/03/2023 Major depressive disorder, recurrent, mild (HCC*03/14/2023 Mild dementia with agitation ([facility]) [F03.A11] 08/30/2023 Encounter Status:Closed by TITA BURGER on 02/07/24 Normal [facility] UA DIP, URINE (POC)on 2023 BILIRUBIN UA (POCT) Negative Negative [facility] CLARITY UA (POCT) Clear [facility] COLOR UA (POCT) Yellow [facility] GLUCOSE UA (POCT) Negative Negative mg/dL [facility] Hemoglobin Ql (U) Trace-intact Abnormal Negative [facility] Interpretation and review of laboratory results Abnormal [facility] KETONE UA (POCT) Negative Negative mg/dL [facility] LEUKOCYTES UA (POCT) Negative Negative [facility] NITRITE UA (POCT) Negative Negative [facility] PH UA (POCT) 6.0 4.5 - 8.0 [facility] Protein Ql (U) Negative Negative mg/dL [facility] SPECIFIC GRAVITY UA (POCT) 1.010 1.005 - 1.030 [facility] UROBILINOGEN UA (POCT) 0.2 Normal E.U./dL [facility] Location:[facility], [address], [place], [address] [facility] POINT OF CARE [facility] Trisha 02-03-2024 CNPN Telephone (ROSE MARIE) GASTON LAINEZ ([id number]) 1950 M Date Time Provider Department 02/03/24 DOROTHY GIBBONS During your visit today, we recorded the following information about you: Margarita Ribera 02/03/2024 8:31 AM Signed 02/03/24 Patient's spouse Marilynn reached the office to discuss strategies to help the patient get situated before his appointment with 02/06/24 to help ease his anxiety. [phone] -IN Dorothy Gibbons LISW 02/03/2024 4:27 PM Signed Returned call and spoke with spouse. Provided education on SW role and what to expect for scheduled assessment. Spouse requested pt not be informed of what's to come as he gets easily upset. Please feel free to call or schedule a follow up visit with any questions or concerns. DISHA Banuelos-[facility] Office: [phone] [phone] Allergies As of Date: 02/03/2024 (No Known Allergies) Date Reviewed: 01/31/2024 Reviewed by: Gloria Connors MA - Fully Assessed Reason for Visit: Patient Question [8526] Prescriptions as of 02/03/2024 - Tadalafil (CIALIS) 10 mg tablet 1-2 tabs daily as needed - predniSONE (DELTASONE) 20 mg tablet Take 60 mg by mouth once daily. - donepezil (ARICEPT) 10 mg tablet Take 1 tablet by mouth daily with breakfast. - OLANZapine (ZYPREXA) 2.5 mg tablet use 1 to 2 tablets at bedtime - busPIRone (BUSPAR) 15 mg tablet TAKE 1 TABLET BY MOUTH TWICE A DAY - fluticasone-salmeterol (WIXELA INHUB) 250-50 mcg/dose inhaler Inhale 1 Puff as instructed two times a day. - tamsulosin (FLOMAX) 0.4 mg Take 1 capsule by mouth daily at bedtime. - albuterol HFA (VENTOLIN HFA) 90 mcg/actuation inhaler Inhale 2 Puffs as instructed every 4 hours as needed for wheezing/shortness of breath. - metoprolol succinate ER (TOPROL XL) 25 mg 24 hr tablet Take 1 tablet by mouth once daily. - OTC PRODUCT Take 1 tablet by mouth once daily. PREVAGEN REGULAR STRENGTH - atorvastatin (LIPITOR) 40 mg tablet Take 1 tablet by mouth once daily. - MULTIVITAMIN ORAL Take by mouth once daily. - docusate sodium (COLACE) 100 mg capsule Take 1 capsule by mouth twice daily. - polyethylene glycol 3350 (MIRALAX) 17 gram/dose powder 17g (1 scoop) with 8 oz daily as needed for constipation Problem List As Of Date 02/03/2024 Noted Resolved Hypermobility syndrome [M35.7] 03/20/2007 Bunion [M21.619] 03/20/2007 COPD, mild (HCC) [J44.9] 10/24/2007 Minor depression [F32.A] 10/24/2007 Generalized anxiety disorder [F41.1] 10/24/2007 Disorders of bursae and tendons in shoulder reg*11/27/2008 12/02/2011 Mixed hyperlipidemia [E78.2] 11/27/2008 OCD (obsessive compulsive disorder) [F42.9] Disorder of prostate [N42.9] 02/24/2016 Primary insomnia [F51.01] 03/02/2016 History of marijuana use [F12.91] 03/02/2016 Well adult exam [Z00.00] 03/02/2016 Incomplete tear of left rotator cuff [M75.112] 03/29/2016 Arthritis, 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] 02/28/2017 Radicular pain of left lower extremity [M54.10] 03/10/2017 Acute midline low back pain with left-sided sci*03/10/2017 Screening for colon cancer [Z12.11] 03/10/2017 Colon cancer screening [Z12.11] 03/28/2017 Tubular adenoma of colon [D12.6] 01/30/2018 Vertigo [R42] 03/22/2018 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 FH: prostate cancer [Z80.42] 03/10/2020 SOB (shortness of breath) [R06.02] 01/06/2021 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 of imri*01/14/2021 Abnormal stress echocardiogram [R94.39] 01/14/2021 03/12/2021 H/O cardiac catheterization [Z98.890] 03/12/2021 Palpitations [R00.2] 03/12/2021 SVT (supraventricular tachycardia) (HCC) [I47.1*10/09/2021 BPH with obstruction/lower urinary tract sympto*06/06/2022 Visual hallucinations [R44.1] 09/06/2022 GERD (gastroesophageal reflux disease) [K21.9] 12/20/2022 S/P reverse total shoulder arthroplasty, left [*01/03/2023 Major depressive disorder, recurrent, mild (HCC*03/14/2023 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 Here today with . Seen in [facility] ER on 01/28/24 for shortness of breath and back pain. States he woke up from sleep diaphoretic and short of breath. EKG showed normal sinus rhythm. Delta troponin negative. Chest x-ray showed no acute findings. Received duoneb. Discharged with Rx for prednisone and albuterol inhaler. Feels much better. No shortness of breath. Has chronic drainage. No anterior chest pain No edema. Had labs and xray which were ok. states she feels this incident was more anxiety related as the patient woke up and didn't know where she was and panicked. She feels he might have done better if he had not been as anxious. Has some pain across his upper back. Worse when standing. Has been there for months. No trauma. No numbness or tingling. Worse with movement. Has only had one dose of prednisone so far for his lungs but discussed it might help. MEDICATIONS: Current Outpatient Medications Medication Sig predniSONE (DELTASONE) 20 mg tablet Take 60 mg by mouth once daily. donepezil (ARICEPT) 10 mg tablet Take 1 tablet by mouth daily with breakfast. OLANZapine (ZYPREXA) 2.5 mg tablet use 1 to 2 tablets at bedtime busPIRone (BUSPAR) 15 mg tablet TAKE 1 TABLET BY MOUTH TWICE A DAY fluticasone-salmeterol (WIXELA INHUB) 250-50 mcg/dose inhaler Inhale 1 Puff as instructed two times a day. tamsulosin (FLOMAX) 0.4 mg Take 1 capsule by mouth daily at bedtime. albuterol HFA (VENTOLIN HFA) 90 mcg/actuation inhaler Inhale 2 Puffs as instructed every 4 hours as needed for wheezing/shortness of breath. metoprolol succinate ER (TOPROL XL) 25 mg 24 hr tablet Take 1 tablet by mouth once daily. OTC PRODUCT Take 1 tablet by mouth once daily. PREVAGEN REGULAR STRENGTH Tadalafil (CIALIS) 10 mg tablet 1-2 tabs daily as needed atorvastatin (LIPITOR) 40 mg tablet Take 1 tablet by mouth once daily. MULTIVITAMIN ORAL Take by mouth once daily. docusate sodium (COLACE) 100 mg capsule Take 1 capsule by mouth twice daily. polyethylene glycol 3350 (MIRALAX) 17 gram/dose powder 17g (1 scoop) with 8 oz daily as needed for constipation No current facility-administered medications for this visit. ALLERGIES: ALLERGIES No Known Allergies PAST MEDICAL HISTORY Diagnosis Date Abnormal stress echocardiogram 01/14/2021 01/21/[address] Barragan: right dominant. LMT min luminal, LAD mild diffuse, LCx mild luminal with large caliber nondominant vessel extending into a single large obtuse marginal branch, proximal vessel is mildly calcified +mild luminal irreg, RCA 40% Large-caliber dominant vessel: moderate calcification from the proximal to mid vessel, mild diffuse ectatic disease proximal.The ostium of the Anxiety state, unspecified 10/24/2007 Benign paroxysmal positional vertigo one remote episode Bunion Chronic obstructive asthma, unspecified 10/24/2007 Depression likely bipolar disorder Depressive disorder, not elsewhere classified 10/24/2007 Generalized anxiety disorder 10/24/2007 History of marijuana use 03/02/2016 Quit 08/2015 Hypermobility syndrome Mild coronary artery disease Mixed hyperlipidemia 11/27/2008 Nontraumatic rupture of tendons of biceps (long head) R, 10/07 L OCD (obsessive compulsive disorder) Pneumonia, organism unspecified(486) 11/2001 bilateral: cleared Primary insomnia 03/02/2016 PAST SURGICAL HISTORY Procedure Laterality Date COLONOSCOPY FLX DX W/COLLJ SPEC WHEN PFRMD 09/21/2006 repeat due 2016 COLONOSCOPY FLX DX W/COLLJ SPEC WHEN PFRMD 04/22/2020 Colonoscopy COLSC FLX W/RMVL OF TUMOR POLYP LESION SNARE TQ 04/19/2017 2 adenomatous polyps - ESOPHAGOGASTRODUODENOSCOPY TRANSORAL DIAGNOSTIC 07/23/2019 EGD EXCISION OF BENIGN LESION GREATER THAN 1.25 CM 03/29/2000 tongue and lip lesions: fibroma; nose: sebaceous hyperplasia PAST SURGICAL HISTORY OF repair flexor tendon left thumb PAST SURGICAL HISTORY OF Left 09/03/2019 Dr. medina [facility]: left CTR and tenosynovectomy at wrist level PAST SURGICAL HISTORY OF Left 04/29/2021 Left median nerve release at the elbow and forearm, Dontae Medina MD, [facility] ROTATOR CUFF REPAIR 2009 left ROTATOR CUFF REPAIR 04/22/2016 right VASECTOMY UNI/BI SPX W/POSTOP SEMEN EXAMS FAMILY HISTORY Problem Relation Age of Onset Heart Mother age 66, CA, SLE other (lupus) Mother diagnosed age 49 Heart Father age 84, CHF other (G6PD) Sister (more content not included)... Normal [facility] XR THORACIC 3V AP/LAT/SWIMME RSon 01-31-2024 XR THORACIC 3V AP/LAT/SWIMMERS * * *Final Report* * * DATE OF EXAM: Jan 31 2024 4:48PM WRX [id number] - XR THORACIC 3V AP/LAT/SWIMMERS / PROCEDURE REASON: Thoracic spine pain * * * * Physician Interpretation * * * * EXAMINATION / TECHNIQUE: XR THORACIC 3V AP/LAT/SWIMMERS HISTORY: pain for 7-8 months center below the shoulder blades no inj Thoracic spine pain COMPARISON: Chest radiographs dated 08/20/2020. RESULT: No thoracic compression fracture is identified. Sagittal alignment is maintained. There is mild multilevel degenerative disc disease. Incompletely assessed lower cervical degenerative disc disease. IMPRESSION: No thoracic compression fracture. Linux Admin: PSCB Transcribe Date/Time: Feb 06 2024 8:08P Dictated by : FERNANDO BHATTI MD This examination was interpreted and the report reviewed and electronically signed by: FERNANDO BHATTI MD on Feb 06 2024 8:09PM EST [id number] Normal [facility] 12 Lead EKGon 01-28-2024 12 Lead EKG [facility] Cardiovascular Services [address] [place] [id number] 12 Lead EKG 01/28/24 0601 MR#: [id number] Acct: [id number] Name: SHANIKA LAINEZ Rep #: [id number] : 1950 73 From: Shilo Ghotra MD Attending Dr: Status: DEP ER Ordering Dr: Roddy Trevino DO Date: 01/28/24 Location: ED Sex: M C Admitted: Test Reason : BACK PAIN Blood Pressure : / mmHG Vent. Rate : 067 BPM Atrial Rate : 067 BPM P-R Int : 170 ms QRS Dur : 076 ms QT Int : 394 ms P-R-T Axes : 014 005 024 degrees QTc Int : 416 ms Normal sinus rhythm Septal infarct , age undetermined Abnormal ECG Confirmed by ANGELO RHODES, SHILO ([id number]), food editor BRIAN ARORA ([id number]) on 01/30/2024 6:51:41 AM Referred By: Confirmed By:SHILO GHOTRA MD 01/30/24 0651 Date Shilo Ghotra MD CC: Dr. Roddy Trevino, DO; GEETA Rizzo Signed Normal [facility] Basic Metabolic Profile (BMP )on 01-28-2024 BUN/CRE 20.0 RATIO Normal 10-20 [facility] Comment on above: Order Comment: 'TROP ' Serial specimen #1, #2 or #3: 1 Performed By: #### L 500.2500, L100.0100, L501.4020 #### [facility] [address] [place], [address] CA,Total 9.0 mg/dL Normal 8.5-10.1 [facility] Comment on above: Order Comment: 'TROP ' Serial specimen #1, #2 or #3: 1 Performed By: #### L 500.2500, L100.0100, L501.4020 #### [facility] [address] [place], [address] Chloride [Moles/Vol] 109 mmol/L High 98-107 [facility] Comment on above: Order Comment: 'TROP ' Serial specimen #1, #2 or #3: 1 Performed By: #### L 500.2500, L100.0100, [id number] #### [facility] [address] [place], [address] CO2 [Moles/Vol] 24.0 mmol/L Normal 21.0-32.0 [facility] Comment on above: Order Comment: 'TROP ' Serial specimen #1, #2 or #3: 1 Performed By: #### L 500.2500, L100.0100, [id number] #### [facility] [address] [place], [address] Creatinine [Mass/Vol] 0.95 mg/dL Normal 0.70-1.30 [facility] Comment on above: Order Comment: 'TROP ' Serial specimen #1, #2 or #3: 1 Result Comment: The validity of the calculated GFR GFRAA in patients over 70 years has not been determined. Clinical correlation is essential. Performed By: #### L 500.2500, L100.0100, L501.4020 #### [facility] [address] [place], [address] ECRCL 70.44 ml/min Normal [facility] Comment on above: Order Comment: 'TROP ' Serial specimen #1, #2 or #3: 1 Performed By: #### L 500.2500, L100.0100, [id number] #### [facility] [address] [place], [address] EST GFR - AA 100 mL/min Normal >60 [facility] Comment on above: Order Comment: 'TROP ' Serial specimen #1, #2 or #3: 1 Result Comment: Afri can Citizen Of [place] GFR Calc Performed By: #### L 500.2500, L100.0100, [id number] #### [facility] [address] [place], [address] GAP 5 Normal 5-15 [facility] Comment on above: Order Comment: 'TROP ' Serial specimen #1, #2 or #3: 1 Performed By: #### L 500.2500, L100.0100, [id number] #### [facility] [address] [place], [address] GFR/1.73 sq M.predicted among non-blacks MDRD (S/P/Bld) [Vol rate/Area] 82 mL/min/{1.73_m2} Normal >60 [facility] Comment on above: Order Comment: 'TROP ' Serial specimen #1, #2 or #3: 1 Result Comment: Non- GFR Calc Performed By: #### L 500.2500, L100.0100, L501.4020 #### [facility] [address] [place], [address] Glucose [Mass/Vol] 90 mg/dL Normal 74-106 [facility] Comment on above: Order Comment: 'TROP ' Serial specimen #1, #2 or #3: 1 Performed By: #### L 500.2500, L100.0100, [id number] #### [facility] [address] [place], [address] Potassium [Moles/Vol] 4.3 mmol/L Normal 3.5-5.1 [facility] Comment on above: Order Comment: 'TROP ' Serial specimen #1, #2 or #3: 1 Performed By: #### L 500.2500, L100.0100, [id number] #### [facility] [address] [place], [address] Sodium [Moles/Vol] 138 mmol/L Normal 136-145 [facility] Comment on above: Order Comment: 'TROP ' Serial specimen #1, #2 or #3: 1 Performed By: #### L 500.2500, L100.0100, [id number] #### [facility] [address] [place], [address] Urea nitrogen [Mass/Vol] 19 mg/dL High 7-18 [facility] Comment on above: Order Comment: 'TROP ' Serial specimen #1, #2 or #3: 1 Performed By: #### L 500.2500, L100.0100, [id number] #### [facility] [address] [place], [address] CBC W/Diff, Automatedon 06-0 Absolute Lymph 2.08 X10 3/uL Normal 0.83-4.51 [facility] Comment on above: Performed By: #### L 500.2500, L100.0100, [id number] #### [facility] [address] [place], [address] Absolute Neut 4.0 X10 3/uL Normal 2.0-7.7 [facility] Comment on above: Performed By: #### L 500.2500, L100.0100, [id number] #### [facility] [address] [place], [address] Basophils/100 WBC (Bld) 0.6 % Normal 0-1 [facility] Comment on above: Performed By: #### L 500.2500, L100.0100, [id number] #### [facility] [address] [place], [address] Eosinophils/100 WBC (Bld) 4.0 % Normal 0-5 [facility] Comment on above: Performed By: #### L 500.2500, L100.0100, [id number] #### [facility] [address] [place], [address] Erythrocyte distribution width (RBC) [Ratio] 13.7 % Normal 11.6-14.6 [facility] Comment on above: Performed By: #### L 500.2500, L100.0100, L501.4020 #### [facility] [address] [place], [address] Hematocrit (Bld) [Volume fraction] 40.0 % Normal 40-54 [facility] Comment on above: Performed By: #### L 500.2500, L100.0100, [id number] #### [facility] [address] [place], [address] Hemoglobin (Bld) [Mass/Vol] 13.2 g/dL Normal 13.0-16.5 [facility] Comment on above: Performed By: #### L 500.2500, L100.0100, [id number] #### [facility] [address] [place], [address] IG% 0.100 Normal 0.0-0.9 [facility] Comment on above: Result Comment: IG% - Immature Granulocytes (promyelocytes, myelocytes and metamyelocytes) > 1% indicates that a LEFT SHIFT is Present. Performed By: #### L 500.2500, L100.0100, [id number] #### [facility] [address] [place], [address] Lymphocytes/100 WBC (Bld) 30.0 % Normal 19-41 [facility] Comment on above: Performed By: #### L 500.2500, L100.0100, [id number] #### [facility] [address] [place], [address] MCH (RBC) [Entitic mass] 30.3 pg Normal 27.0-32.0 [facility] Comment on above: Performed By: #### L 500.2500, L100.0100, [id number] #### [facility] [address] [place], [address] MCHC (RBC) [Mass/Vol] 33.0 g/dL Normal 32-36 [facility] Comment on above: Performed By: #### L 500.2500, L100.0100, [id number] #### [facility] [address] [place], [address] MCV (RBC) [Entitic vol] 91.7 fL Normal 80-94 [facility] Comment on above: Performed By: #### L 500.2500, L100.0100, [id number] #### [facility] [address] [place], [address] Monocytes/100 WBC (Bld) 7.8 % Normal 0-10 [facility] Comment on above: Performed By: #### L 500.2500, L100.0100, [id number] #### [facility] [address] [place], [address] Neutrophils/100 WBC (Bld) 57.5 % Normal 47-70 [facility] Comment on above: Performed By: #### L 500.2500, L100.0100, [id number] #### [facility] [address] [place], [address] Nucleated RBC (Bld) [#/Vol] 0 10*3/uL Normal 0-5 [facility] Comment on above: Performed By: #### L 500.2500, L100.0100, [id number] #### [facility] [address] [place], [address] Platelet mean volume (Bld) [Entitic vol] 10.0 fL Normal 6.2-12.0 [facility] Comment on above: Performed By: #### L 500.2500, L100.0100, [id number] #### [facility] [address] [place], [address] Platelets (Bld) [#/Vol] 175 10*3/uL Normal 150-450 [facility] Comment on above: Performed By: #### L 500.2500, L100.0100, [id number] #### [facility] [address] [place], [address] RBC (Bld) [#/Vol] 4.36 10*6/uL Low 4.6-6.2 [facility] Comment on above: Performed By: #### L 500.2500, L100.0100, [id number] #### [facility] [address] [place], [address] RDW SD 46.8 fl High 35.1-43.9 [facility] Comment on above: Performed By: #### L 500.2500, L100.0100, L501.4020 #### [facility] [address] [place], [address] WBC (Bld) [#/Vol] 6.9 10*3/uL Normal 4.4-11.0 [facility] Comment on above: Performed By: #### L 500.2500, L100.0100, L501.4020 #### [facility] [address] [place], [address] Chest 1 View (Portable)on Chest 1 View (Portable) [facility] Imaging Services [address] [place] [address] Chest 1 View (Portable) MR#: [id number] Acct: [id number] Name: SHANIKA LAINEZ Rep #: [id number] : 1950 73 From: Dimas hernandez MD PCP: GEETA Rizzo Status: REG ER Study: Chest 1 View (Portable) Date of Exam: 01/28/24 Exam# [id number] Ordering Dr: Roddy Trevino DO :[id number] EXAM: XR CHEST, 1 VIEW CLINICAL INDICATION: DYSPNEA DYSPNEA TECHNIQUE: Frontal view of the chest. COMPARISON: Chest x-ray 10/25/2020. FINDINGS: LUNGS AND PLEURAL SPACES: Unremarkable. No consolidation or edema. No pneumothorax. No effusion. HEART: Unremarkable. Cardiac silhouette not enlarged. MEDIASTINUM: Central airways and mediastinal contour are unremarkable. BONES/JOINTS: There is a left shoulder prosthesis. There are multilevel degenerative changes in the visualized spine. No acute fracture. SOFT TISSUES: Unremarkable. VASCULATURE: There is atherosclerotic calcification of the aortic arch. RAD/Chest 1 View (Portable) IMPRESSION: No acute findings in the chest. Electronically Signed: Dimas Campos MD at 7:52 EDT , CC: Dr. Roddy Trevino DO; GEETA Rizzo Linux Admin: Signed Normal [facility] Emergency Department Summary on 01-28-2024 Emergency Department Summary [facility] Medical Records Department [address] [place] [address] Emergency Department Summary 01/28/24 MR#: [id number] Acct: [id number] Name: SHANIKA LAINEZ Rep #: [id number] : 1950 73 From: Roddy Trevino DO PCP: GEETA Rizzo Status:DEP ER Location: ED HPI History of Present Illness Chief Complaint: Shortness of Breath Informant: patient Narrative Narrative: 73-year-old male presenting to the emergency room with shortness of breath and back pain. Patient states that a few hours before evaluation he woke from sleep diaphoretic and short of breath. He notes he had pain across to his upper thoracic back. He states that his symptoms have significantly gotten better now. He notes he is recently had a URI consisting of runny nose and a slight cough. Patient tells me that his same symptoms that brought him to the emergency room tonight are present the night before. However it was not as severe. Patient denies any known fevers. No vomiting or diarrhea. No nausea. Nothing seems to make his symptoms better or worse. Patient drove himself to the emergency department. When asked if he has any new medications he states yes. He shows me a container of MiraLAX which she states he has been taking intermittently for a year. [facility] Medical History Asthma Home Medications ???Medication ???Instructions ???Recorded ???Last Taken ???Type quetiapine 25 mg tablet 25 - 50 mg PO QHS PRN Sleep 07/23/19 Unknown History albuterol sulfate 90 mcg/actuation 2 puff inhalation Q4H PRN PRN Sleep 10/25/20 Unknown History aerosol inhaler fluticasone 250 mcg-salmeterol 50 1 puff inhalation BID 10/25/20 Unknown History mcg/dose blistr powdr for inhalation albuterol sulfate 90 mcg/actuation 2 puff inhalation Q4H PRN PRN 01/28/24 Unknown Rx aerosol inhaler (Ventolin HFA) Wheezing ##1 prednisone 20 mg tablet 60 mg (3 x 20 mg) PO DAILY #15 01/28/24 Unknown Rx TABLETS Allergy/AdvReac Type Severity Reaction Status Date / Time No Known Allergies Allergy Verified 01/28/24 06:05 Social History Smoking Status: Former smoker ROS ROS ED Constitutional Constitutional ED: Reports sweats; Denies chills, fever(s) or weight loss Eyes Eyes: Denies change in vision or diplopia ENT ENT ED: Reports rhinorrhea; Denies ear pain or sore throat Cardiovascular Cardiovascular: Denies chest pain, orthopnea, palpitations or racing heartbeat Respiratory/Chest Respiratory/Chest: Reports cough and dyspnea; Denies orthopnea Gastrointestinal Gastrointestinal: Denies abdominal pain, diarrhea, nausea or vomiting Genitourinary Genitourinary ED: Denies dysuria, hematuria or urinary frequency Musculoskeletal Musculoskeletal: Reports back pain; Denies arthralgias, myalgias or neck pain Integumentary Denies abscess or rash Neurologic Neurologic: Denies headache(s) or weakness Psychiatric Psychiatric: Denies anxiety, depression, suicidal ideation or suicidal thoughts Endocrine Endocrinology: Denies polydipsia, polyphagia or polyuria Allergic/Immunologic Allergic/Immunologic ED: Denies mouth swelling, tongue swelling or urticaria EXAM Physical Exam Const Vital Signs: 01/28/24 05:57 01/28/24 06:09 01/28/24 06:55 Temperature 98.1 F Temperature Source Oral Pulse Rate 68 55 L Respiratory Rate 18 16 Respiratory Effort Normal Respiratory Depth Normal Respiratory Pattern Normal Normal Blood Pressure 130/83 H Blood Pressure Mean 98 Pulse Ox 96 Oxygen Delivery Method Room Air Room Air 01/28/24 06:56 Temperature Temperature Source Pulse Rate 67 Respiratory Rate 18 Respiratory Effort Respiratory Depth Respiratory Pattern Blood Pressure 125/65 H Blood Pressure Mean 85 Pulse Ox 100 Oxygen Delivery Method Room Air Positive well nourished and well developed General Appearance ED: well developed HEENT Reports normocephalic, head/scalp atraumatic and moist mucous membranes Eyes PERRL and EOMs intact bilaterally Neck no lymphadenopathy, supple and no JVD Resp normal respiratory effort Auscultation: rhonchi left lower and wheezes scattered wheezes Cardio regular rate, regular rhythm and no murmurs GI normal to inspection, nondistended, normoactive bowel sounds and non-tender Palpation: soft Back/Spine no CVA tenderness and normal ROM Back/Spine Narrative: No tenderness to palpation around the thoracic paraspinal musculature. Extremity normal to inspection General Extremety ED: Negative for edema General Extremity: Negative for edema Neuro oriented x3 and CN's II-XII intact bilaterally Sensorium / Orientation: alert Motor Exam: strength 5 (more content not included)... Normal [facility] L501.4020on 01-28-2024 TROPONIN-I HS 9 pg/mL Normal 3.0-78.0 [facility] Comment on above: Order Comment: 'TROP ' Serial specimen #1, #2 or #3: 2 Result Comment: Plea se Note: New Test Units and Gender Specific Reference Ranges. For more information see Policy Stat Procedure Manning High Sensitivity Troponin (TNIH) and attachments. Performed By: #### L 501.4020 #### [facility] [address] [place], [address] TROPONIN-I HS 8 pg/mL Normal 3.0-78.0 [facility] Comment on above: Order Comment: 'TROP ' Serial specimen #1, #2 or #3: 1 Result Comment: Plea se Note: New Test Units and Gender Specific Reference Ranges. For more information see Policy Stat Procedure Manning High Sensitivity Troponin (TNIH) and attachments. Performed By: #### L 500.2500, L100.0100, L501.4020 #### [facility] [address] [place], [address] M100.678on 01-28-2024 M100.678 Normal Reference Ran ge = Negative GeneXpert Instrument, PCR method SARS-CoV-2 (COVID 19) Negative INFLUENZA A Negative INFLUENZA B Negative RSV PCR Negative Normal [facility] Comment on above: Performed By: #### M 100.678 #### [facility] [address] [place], [address] [facility] * * *Final Report* * * DATE OF EXAM: Jan 20 2024 7:46AM [facility] 3015 - MRI BRAIN W QUANT WO IVCON / PROCEDURE REASON: Major neurocognitive disorder (HCC) * * * * Physician Interpretation * * * * RESULT: EXAMINATION: MRI BRAIN W QUANT WO IVCON, MRI 3D POST PROCESSING Clinical history: As provided by the ordering clinician via order question entries: For anatomic quantification. Major neurocognitive disorder. Stated history: Memory issues. TECHNIQUE: Axial ALINE FLAIR, ALINE T2, diffusion and susceptibility weighted imaging without contrast, using the ADNI dementia protocol and 3-D post-processing using the [employer] software at an independent workstation with concurrent physician supervision and images were created, reviewed and archived. MQ: [id number]_1 Comparison: 09/30/2022 brain MRI RESULT: QUALITATIVE: Acute Intracranial Process: None. Chronic Intracranial Process: Unchanged small foci of T2/FLAIR signal hyperintensity involving the right inferior parietal white matter and along the lateral periventricular white matter/gerard radiata, nonspecific, though may reflect minimal chronic microvascular ischemic change. Number of chronic lacunar infarcts: None Location of chronic lacunar infarcts: Not applicable Age related white matter changes (ARWMC) rating: White matter lesions: 1 Basal ganglia lesions: 0 *Basal ganglia according to Wahlund et al. includes the striatum, globus pallidus, thalamus, internal/external capsule, and insula. Prior intracranial hemorrhage: Parenchymal microhemorrhages: 0 Other (siderosis/macrohemorrhages (>10mm): Not Applicable Qualitative brain and hippocampal volume loss for age: Cortex: Moderate. White Matter: Mild. Hippocampi: Moderate. Symmetric. Ventricles: Commensurate with volume loss. Brain Parenchymal Signal and Morphology: Unchanged prominent perivascular spaces in the left frontoparietal white matter (series 10, image 22). The brain parenchyma is otherwise within normal limits of signal and morphology. There is no evidence of an intracranial mass or extraaxial fluid collection. Other Findings: Bilateral pseudophakia. Minimal mucosal thickening in the frontal sinuses and ethmoid air cells and small presumed mucosal retention cyst along the inferior margin of the left maxillary sinus. Mild rightward deviation of the nasal septum and mild conchae bullosa of the left middle nasal turbinate. The mastoid air cells and middle ear cavities appear clear. Small volume retained dependent secretions in the nasopharynx. QUANTITATIVE: Exam Quality: Good for volumetric analysis. Segmentation: Negligible mismapping by visual inspection. Quantitative Data: Total Hippocampal Volume: Percentile for age: 3rd Asymmetry Index: -13.1 Superior Lateral Ventricular Volume: Percentile for age: 85th Asymmetry Index: 2.24 Inferior Lateral Ventricular Volume: Percentile for age: 62nd Asymmetry Index: 11.4 Temporal Lobe Volume: Percentile for age: 1st Asymmetry Index: -4.39 Frontal Lobe Volume: Percentile for age: 4th Asymmetry Index: -3.61 Parietal Lobe Volume: Percentile for age: 1st Occipital Lobe Volume: Percentile for age: 1st Whole Brain Volume: Percentile for age: 6th Concordance between qualitative and quantitative hippocampal volume assessment: Concordant Change in brain volumes: No previous volumetric study for comparison Whole Brain Volume Change: N/A Hippocampal Volume Change: N/A Superior Lateral Ventricle Volume Change: N/A Inferior Lateral Ventricle Volume Change: N/A Mean hippocampal volume loss among normal elderly: 0.7% per year, (-0.3 to 1.7; Mason 2008; also He 2010). [facility] Provider, [facility] - 01/20/2024 * * *Final Report* * * DATE OF EXAM: Jan 20 2024 7:46AM [facility] 3015 - MRI BRAIN W QUANT WO IVCON / PROCEDURE REASON: Major neurocognitive disorder (HCC) * * * * Physician Interpretation * * * * RESULT: EXAMINATION: MRI BRAIN W QUANT WO IVCON, MRI 3D POST PROCESSING Clinical history: As provided by the ordering clinician via order question entries: For anatomic quantification. Major neurocognitive disorder. Stated history: Memory issues. TECHNIQUE: Axial ALINE FLAIR, ALINE T2, diffusion and susceptibility weighted imaging without contrast, using the ADNI dementia protocol and 3-D post-processing using the [employer] software at an independent workstation with concurrent physician supervision and images were created, reviewed and archived. MQ: [id number]_1 Comparison: 09/30/2022 brain MRI RESULT: QUALITATIVE: Acute Intracranial Process: None. Chronic Intracranial Process: Unchanged small foci of T2/FLAIR signal hyperintensity involving the right inferior parietal white matter and along the lateral periventricular white matter/gerard radiata, nonspecific, though may reflect minimal chronic microvascular ischemic change. Number of chronic lacunar infarcts: None Location of chronic lacunar infarcts: Not applicable Age related white matter changes (ARWMC) rating: White matter lesions: 1 Basal ganglia lesions: 0 *Basal ganglia according to Wahlund et al. includes the striatum, globus pallidus, thalamus, internal/external capsule, and insula. Prior intracranial hemorrhage: Parenchymal microhemorrhages: 0 Other (siderosis/macrohemorrhages (>10mm): Not Applicable Qualitative brain and hippocampal volume loss for age: Cortex: Moderate. White Matter: Mild. Hippocampi: Moderate. Symmetric. Ventricles: Commensurate with volume loss. Brain Parenchymal Signal and Morphology: Unchanged prominent perivascular spaces in the left frontoparietal white matter (series 10, image 22). The brain parenchyma is otherwise within normal limits of signal and morphology. There is no evidence of an intracranial mass or extraaxial fluid collection. Other Findings: Bilateral pseudophakia. Minimal mucosal thickening in the frontal sinuses and ethmoid air cells and small presumed mucosal retention cyst along the inferior margin of the left maxillary sinus. Mild rightward deviation of the nasal septum and mild conchae bullosa of the left middle nasal turbinate. The mastoid air cells and middle ear cavities appear clear. Small volume retained dependent secretions in the nasopharynx. QUANTITATIVE: Exam Quality: Good for volumetric analysis. Segmentation: Negligible mismapping by visual inspection. Quantitative Data: Total Hippocampal Volume: Percentile for age: 3rd Asymmetry Index: -13.1 Superior Lateral Ventricular Volume: Percentile for age: 85th Asymmetry Index: 2.24 Inferior Lateral Ventricular Volume: Percentile for age: 62nd Asymmetry Index: 11.4 Temporal Lobe Volume: Percentile for age: 1st Asymmetry Index: -4.39 Frontal Lobe Volume: Percentile for age: 4th Asymmetry Index: -3.61 Parietal Lobe Volume: Percentile for age: 1st Occipital Lobe Volume: Percentile for age: 1st Whole Brain Volume: Percentile for age: 6th Concordance between qualitative and quantitative hippocampal volume assessment: Concordant Change in brain volumes: No previous volumetric study for comparison Whole Brain Volume Change: N/A Hippocampal Volume Change: N/A Superior Lateral Ventricle Volume Change: N/A Inferior Lateral Ventricle Volume Change: N/A Mean hippocampal volume loss among normal elderly: 0.7% per year, (-0.3 to 1.7; Mason 2008; also He 2010). IMPRESSION IMPRESSION: * No apparent acute intracranial process or intracranial mass. * Moderate generalized cortical volume loss and mild generalized white matter volume loss. * Hippocampal volumes at the third percentile when compared to age matched normal controls by quantitative analysis. * Minimal white matter disease which is nonspecific but likely reflective of chronic microvascular ischemia. * No evidence of parenchymal microhemorrhages by MRI. REFERENCES: White matter lesions 0 = No lesions (including symmetrical, well-defined caps or bands) 1 = Focal lesions 2 = Beginning of confluence 3 = Diffuse involvement of entire region Basal ganglia lesions 0 = No lesions 1 = 1 focal lesion ( > 5 mm) 2 = >1 focal lesion ( > 5 mm) 3 = Confluent lesions He Guidry et al. The clinical use of structural MRI in Alzheimer disease. Nature Reviews Neurology 6;67 (2010). Mason et al. Validation of a fully automated 3D hippocampal segmentation method using subjects with Alzheimer's disease mild cognitive impairment, and elderly cont (more content not included)... [facility] MR Unspecified body region 3 D post processingon 01-20-2024 * * *Final Report* * * DATE OF EXAM: Jan 20 2024 7:46AM [facility] 0280 - MRI 3D POST PROCESSING / PROCEDURE REASON: Major neurocognitive disorder (HCC) * * * * Physician Interpretation * * * * RESULT: EXAMINATION: MRI BRAIN W QUANT WO IVCON, MRI 3D POST PROCESSING Clinical history: As provided by the ordering clinician via order question entries: For anatomic quantification. Major neurocognitive disorder. Stated history: Memory issues. TECHNIQUE: Axial ALINE FLAIR, ALINE T2, diffusion and susceptibility weighted imaging without contrast, using the ADNI dementia protocol and 3-D post-processing using the [employer] software at an independent workstation with concurrent physician supervision and images were created, reviewed and archived. MQ: [id number]_1 Comparison: 09/30/2022 brain MRI RESULT: QUALITATIVE: Acute Intracranial Process: None. Chronic Intracranial Process: Unchanged small foci of T2/FLAIR signal hyperintensity involving the right inferior parietal white matter and along the lateral periventricular white matter/gerard radiata, nonspecific, though may reflect minimal chronic microvascular ischemic change. Number of chronic lacunar infarcts: None Location of chronic lacunar infarcts: Not applicable Age related white matter changes (ARWMC) rating: White matter lesions: 1 Basal ganglia lesions: 0 *Basal ganglia according to Wahlund et al. includes the striatum, globus pallidus, thalamus, internal/external capsule, and insula. Prior intracranial hemorrhage: Parenchymal microhemorrhages: 0 Other (siderosis/macrohemorrhages (>10mm): Not Applicable Qualitative brain and hippocampal volume loss for age: Cortex: Moderate. White Matter: Mild. Hippocampi: Moderate. Symmetric. Ventricles: Commensurate with volume loss. Brain Parenchymal Signal and Morphology: Unchanged prominent perivascular spaces in the left frontoparietal white matter (series 10, image 22). The brain parenchyma is otherwise within normal limits of signal and morphology. There is no evidence of an intracranial mass or extraaxial fluid collection. Other Findings: Bilateral pseudophakia. Minimal mucosal thickening in the frontal sinuses and ethmoid air cells and small presumed mucosal retention cyst along the inferior margin of the left maxillary sinus. Mild rightward deviation of the nasal septum and mild conchae bullosa of the left middle nasal turbinate. The mastoid air cells and middle ear cavities appear clear. Small volume retained dependent secretions in the nasopharynx. QUANTITATIVE: Exam Quality: Good for volumetric analysis. Segmentation: Negligible mismapping by visual inspection. Quantitative Data: Total Hippocampal Volume: Percentile for age: 3rd Asymmetry Index: -13.1 Superior Lateral Ventricular Volume: Percentile for age: 85th Asymmetry Index: 2.24 Inferior Lateral Ventricular Volume: Percentile for age: 62nd Asymmetry Index: 11.4 Temporal Lobe Volume: Percentile for age: 1st Asymmetry Index: -4.39 Frontal Lobe Volume: Percentile for age: 4th Asymmetry Index: -3.61 Parietal Lobe Volume: Percentile for age: 1st Occipital Lobe Volume: Percentile for age: 1st Whole Brain Volume: Percentile for age: 6th Concordance between qualitative and quantitative hippocampal volume assessment: Concordant Change in brain volumes: No previous volumetric study for comparison Whole Brain Volume Change: N/A Hippocampal Volume Change: N/A Superior Lateral Ventricle Volume Change: N/A Inferior Lateral Ventricle Volume Change: N/A Mean hippocampal volume loss among normal elderly: 0.7% per year, (-0.3 to 1.7; Mason 2008; also He 2010). [facility] Provider, [facility] - 01/20/2024 * * *Final Report* * * DATE OF EXAM: Jan 20 2024 7:46AM [facility] 0280 - MRI 3D POST PROCESSING / PROCEDURE REASON: Major neurocognitive disorder (HCC) * * * * Physician Interpretation * * * * RESULT: EXAMINATION: MRI BRAIN W QUANT WO IVCON, MRI 3D POST PROCESSING Clinical history: As provided by the ordering clinician via order question entries: For anatomic quantification. Major neurocognitive disorder. Stated history: Memory issues. TECHNIQUE: Axial ALINE FLAIR, ALINE T2, diffusion and susceptibility weighted imaging without contrast, using the ADNI dementia protocol and 3-D post-processing using the [employer] software at an independent workstation with concurrent physician supervision and images were created, reviewed and archived. MQ: MRBDemWO_1 Comparison: 09/30/2022 brain MRI RESULT: QUALITATIVE: Acute Intracranial Process: None. Chronic Intracranial Process: Unchanged small foci of T2/FLAIR signal hyperintensity involving the right inferior parietal white matter and along the lateral periventricular white matter/gerard radiata, nonspecific, though may reflect minimal chronic microvascular ischemic change. Number of chronic lacunar infarcts: None Location of chronic lacunar infarcts: Not applicable Age related white matter changes (ARWMC) rating: White matter lesions: 1 Basal ganglia lesions: 0 *Basal ganglia according to Wahlund et al. includes the striatum, globus pallidus, thalamus, internal/external capsule, and insula. Prior intracranial hemorrhage: Parenchymal microhemorrhages: 0 Other (siderosis/macrohemorrhages (>10mm): Not Applicable Qualitative brain and hippocampal volume loss for age: Cortex: Moderate. White Matter: Mild. Hippocampi: Moderate. Symmetric. Ventricles: Commensurate with volume loss. Brain Parenchymal Signal and Morphology: Unchanged prominent perivascular spaces in the left frontoparietal white matter (series 10, image 22). The brain parenchyma is otherwise within normal limits of signal and morphology. There is no evidence of an intracranial mass or extraaxial fluid collection. Other Findings: Bilateral pseudophakia. Minimal mucosal thickening in the frontal sinuses and ethmoid air cells and small presumed mucosal retention cyst along the inferior margin of the left maxillary sinus. Mild rightward deviation of the nasal septum and mild conchae bullosa of the left middle nasal turbinate. The mastoid air cells and middle ear cavities appear clear. Small volume retained dependent secretions in the nasopharynx. QUANTITATIVE: Exam Quality: Good for volumetric analysis. Segmentation: Negligible mismapping by visual inspection. Quantitative Data: Total Hippocampal Volume: Percentile for age: 3rd Asymmetry Index: -13.1 Superior Lateral Ventricular Volume: Percentile for age: 85th Asymmetry Index: 2.24 Inferior Lateral Ventricular Volume: Percentile for age: 62nd Asymmetry Index: 11.4 Temporal Lobe Volume: Percentile for age: 1st Asymmetry Index: -4.39 Frontal Lobe Volume: Percentile for age: 4th Asymmetry Index: -3.61 Parietal Lobe Volume: Percentile for age: 1st Occipital Lobe Volume: Percentile for age: 1st Whole Brain Volume: Percentile for age: 6th Concordance between qualitative and quantitative hippocampal volume assessment: Concordant Change in brain volumes: No previous volumetric study for comparison Whole Brain Volume Change: N/A Hippocampal Volume Change: N/A Superior Lateral Ventricle Volume Change: N/A Inferior Lateral Ventricle Volume Change: N/A Mean hippocampal volume loss among normal elderly: 0.7% per year, (-0.3 to 1.7; Mason 2008; also He 2010). IMPRESSION IMPRESSION: * No apparent acute intracranial process or intracranial mass. * Moderate generalized cortical volume loss and mild generalized white matter volume loss. * Hippocampal volumes at the third percentile when compared to age matched normal controls by quantitative analysis. * Minimal white matter disease which is nonspecific but likely reflective of chronic microvascular ischemia. * No evidence of parenchymal microhemorrhages by MRI. REFERENCES: White matter lesions 0 = No lesions (including symmetrical, well-defined caps or bands) 1 = Focal lesions 2 = Beginning of confluence 3 = Diffuse involvement of entire region Basal ganglia lesions 0 = No lesions 1 = 1 focal lesion ( > 5 mm) 2 = >1 focal lesion ( > 5 mm) 3 = Confluent lesions He Guidry et al. The clinical use of structural MRI in Alzheimer disease. Nature Reviews Neurology 6;67 (2010). Mason et al. Validation of a fully automated 3D hippocampal segmentation method using subjects with Alzheimer's disease mild cognitive impairment, and elderly controls (more content not included)... [facility] MRI 3D POST PROCESSINGon MRI 3D POST PROCESSING * * *Final Report* * * DATE OF EXAM: Jan 20 2024 7:46AM [facility] 0280 - MRI 3D POST PROCESSING / PROCEDURE REASON: Major neurocognitive disorder (HCC) * * * * Physician Interpretation * * * * RESULT: EXAMINATION: MRI BRAIN W QUANT WO IVCON, MRI 3D POST PROCESSING Clinical history: As provided by the ordering clinician via order question entries: For anatomic quantification. Major neurocognitive disorder. Stated history: Memory issues. TECHNIQUE: Axial ALINE FLAIR, ALINE T2, diffusion and susceptibility weighted imaging without contrast, using the ADNI dementia protocol and 3-D post-processing using the NeuroQuant software at an independent workstation with concurrent physician supervision and images were created, reviewed and archived. MQ: [id number] Comparison: 09/30/2022 brain MRI RESULT: QUALITATIVE: Acute Intracranial Process: None. Chronic Intracranial Process: Unchanged small foci of T2/FLAIR signal hyperintensity involving the right inferior parietal white matter and along the lateral periventricular white matter/gerard radiata, nonspecific, though may reflect minimal chronic microvascular ischemic change. Number of chronic lacunar infarcts: None Location of chronic lacunar infarcts: Not applicable Age related white matter changes (ARWMC) rating: White matter lesions: 1 Basal ganglia lesions: 0 *Basal ganglia according to Wahlund et al. includes the striatum, globus pallidus, thalamus, internal/external capsule, and insula. Prior intracranial hemorrhage: Parenchymal microhemorrhages: 0 Other (siderosis/macrohemorrhages (>10mm): Not Applicable Qualitative brain and hippocampal volume loss for age: Cortex: Moderate. White Matter: Mild. Hippocampi: Moderate. Symmetric. Ventricles: Commensurate with volume loss. Brain Parenchymal Signal and Morphology: Unchanged prominent perivascular spaces in the left frontoparietal white matter (series 10, image 22). The brain parenchyma is otherwise within normal limits of signal and morphology. There is no evidence of an intracranial mass or extraaxial fluid collection. Other Findings: Bilateral pseudophakia. Minimal mucosal thickening in the frontal sinuses and ethmoid air cells and small presumed mucosal retention cyst along the inferior margin of the left maxillary sinus. Mild rightward deviation of the nasal septum and mild conchae bullosa of the left middle nasal turbinate. The mastoid air cells and middle ear cavities appear clear. Small volume retained dependent secretions in the nasopharynx. QUANTITATIVE: Exam Quality: Good for volumetric analysis. Segmentation: Negligible mismapping by visual inspection. Quantitative Data: Total Hippocampal Volume: Percentile for age: 3rd Asymmetry Index: -13.1 Superior Lateral Ventricular Volume: Percentile for age: 85th Asymmetry Index: 2.24 Inferior Lateral Ventricular Volume: Percentile for age: 62nd Asymmetry Index: 11.4 Temporal Lobe Volume: Percentile for age: 1st Asymmetry Index: -4.39 Frontal Lobe Volume: Percentile for age: 4th Asymmetry Index: -3.61 Parietal Lobe Volume: Percentile for age: 1st Occipital Lobe Volume: Percentile for age: 1st Whole Brain Volume: Percentile for age: 6th Concordance between qualitative and quantitative hippocampal volume assessment: Concordant Change in brain volumes: No previous volumetric study for comparison Whole Brain Volume Change: N/A Hippocampal Volume Change: N/A Superior Lateral Ventricle Volume Change: N/A Inferior Lateral Ventricle Volume Change: N/A Mean hippocampal volume loss among normal elderly: 0.7% per year, (-0.3 to 1.7; Mason 2008; also eH 2010). IMPRESSION: * No apparent acute intracranial process or intracranial mass. * Moderate generalized cortical volume loss and mild generalized white matter volume loss. * Hippocampal volumes at the third percentile when compared to age matched normal controls by quantitative analysis. * Minimal white matter disease which is nonspecific but likely reflective of chronic microvascular ischemia. * No evidence of parenchymal microhemorrhages by MRI. REFERENCES: White matter lesions 0 = No lesions (including symmetrical, well-defined caps or bands) 1 = Focal lesions 2 = Beginning of confluence 3 = Diffuse involvement of entire region Basal ganglia lesions 0 = No lesions 1 = 1 focal lesion ( > 5 mm) 2 = >1 focal lesion ( > 5 mm) 3 = Confluent lesions He Guidry, et al. The clinical use of structural MRI in Alzheimer disease. Nature Reviews Neurology 6;67 (2010). Mason et al. Validation of a fully automated 3D hippocampal segmentation method using subjects with Alzheimer's disease mild cognitive impairment, and elderly controls. Neuroimage 43;59 (2008). Argenis et al. A New Rating Scale for Age-Related White Matter Changes Applicable to MRI and CT. Stroke. 32:1318 (2001). * Asymmetry i (more content not included)... Normal [facility] MRI BRAIN W QUANT WO IVCONon 01-20-2024 MRI BRAIN W QUANT WO IVCON * * *Final Report* * * DATE OF EXAM: Jan 20 2024 7:46AM [facility] 3015 - MRI BRAIN W QUANT WO IVCON / PROCEDURE REASON: Major neurocognitive disorder (HCC) * * * * Physician Interpretation * * * * RESULT: EXAMINATION: MRI BRAIN W QUANT WO IVCON, MRI 3D POST PROCESSING Clinical history: As provided by the ordering clinician via order question entries: For anatomic quantification. Major neurocognitive disorder. Stated history: Memory issues. TECHNIQUE: Axial ALINE FLAIR, ALINE T2, diffusion and susceptibility weighted imaging without contrast, using the ADNI dementia protocol and 3-D post-processing using the NeuroQuant software at an independent workstation with concurrent physician supervision and images were created, reviewed and archived. MQ: [id number] Comparison: 09/30/2022 brain MRI RESULT: QUALITATIVE: Acute Intracranial Process: None. Chronic Intracranial Process: Unchanged small foci of T2/FLAIR signal hyperintensity involving the right inferior parietal white matter and along the lateral periventricular white matter/gerard radiata, nonspecific, though may reflect minimal chronic microvascular ischemic change. Number of chronic lacunar infarcts: None Location of chronic lacunar infarcts: Not applicable Age related white matter changes (ARWMC) rating: White matter lesions: 1 Basal ganglia lesions: 0 *Basal ganglia according to Wahlund et al. includes the striatum, globus pallidus, thalamus, internal/external capsule, and insula. Prior intracranial hemorrhage: Parenchymal microhemorrhages: 0 Other (siderosis/macrohemorrhages (>10mm): Not Applicable Qualitative brain and hippocampal volume loss for age: Cortex: Moderate. White Matter: Mild. Hippocampi: Moderate. Symmetric. Ventricles: Commensurate with volume loss. Brain Parenchymal Signal and Morphology: Unchanged prominent perivascular spaces in the left frontoparietal white matter (series 10, image 22). The brain parenchyma is otherwise within normal limits of signal and morphology. There is no evidence of an intracranial mass or extraaxial fluid collection. Other Findings: Bilateral pseudophakia. Minimal mucosal thickening in the frontal sinuses and ethmoid air cells and small presumed mucosal retention cyst along the inferior margin of the left maxillary sinus. Mild rightward deviation of the nasal septum and mild conchae bullosa of the left middle nasal turbinate. The mastoid air cells and middle ear cavities appear clear. Small volume retained dependent secretions in the nasopharynx. QUANTITATIVE: Exam Quality: Good for volumetric analysis. Segmentation: Negligible mismapping by visual inspection. Quantitative Data: Total Hippocampal Volume: Percentile for age: 3rd Asymmetry Index: -13.1 Superior Lateral Ventricular Volume: Percentile for age: 85th Asymmetry Index: 2.24 Inferior Lateral Ventricular Volume: Percentile for age: 62nd Asymmetry Index: 11.4 Temporal Lobe Volume: Percentile for age: 1st Asymmetry Index: -4.39 Frontal Lobe Volume: Percentile for age: 4th Asymmetry Index: -3.61 Parietal Lobe Volume: Percentile for age: 1st Occipital Lobe Volume: Percentile for age: 1st Whole Brain Volume: Percentile for age: 6th Concordance between qualitative and quantitative hippocampal volume assessment: Concordant Change in brain volumes: No previous volumetric study for comparison Whole Brain Volume Change: N/A Hippocampal Volume Change: N/A Superior Lateral Ventricle Volume Change: N/A Inferior Lateral Ventricle Volume Change: N/A Mean hippocampal volume loss among normal elderly: 0.7% per year, (-0.3 to 1.7; Mason 2008; also He 2010). IMPRESSION: * No apparent acute intracranial process or intracranial mass. * Moderate generalized cortical volume loss and mild generalized white matter volume loss. * Hippocampal volumes at the third percentile when compared to age matched normal controls by quantitative analysis. * Minimal white matter disease which is nonspecific but likely reflective of chronic microvascular ischemia. * No evidence of parenchymal microhemorrhages by MRI. REFERENCES: White matter lesions 0 = No lesions (including symmetrical, well-defined caps or bands) 1 = Focal lesions 2 = Beginning of confluence 3 = Diffuse involvement of entire region Basal ganglia lesions 0 = No lesions 1 = 1 focal lesion ( > 5 mm) 2 = >1 focal lesion ( > 5 mm) 3 = Confluent lesions He Guidry et al. The clinical use of structural MRI in Alzheimer disease. Nature Reviews Neurology 6;67 (2010). Mason et al. Validation of a fully automated 3D hippocampal segmentation method using subjects with Alzheimer's disease mild cognitive impairment, and elderly controls. Neuroimage 43;59 (2008). Conradound et al. A New Rating Scale for Age-Related White Matter Changes Applicable to MRI and CT. Stroke. 32:1318 (2001). * Asymmet (more content not included)... Normal [facility] No Panel Informationon 01-19 IMPRESSION: * No apparent acute intracranial process or intracranial mass. * Moderate generalized cortical volume loss and mild generalized white matter volume loss. * Hippocampal volumes at the third percentile when compared to age matched normal controls by quantitative analysis. * Minimal white matter disease which is nonspecific but likely reflective of chronic microvascular ischemia. * No evidence of parenchymal microhemorrhages by MRI. REFERENCES: White matter lesions 0 = No lesions (including symmetrical, well-defined caps or bands) 1 = Focal lesions 2 = Beginning of confluence 3 = Diffuse involvement of entire region Basal ganglia lesions 0 = No lesions 1 = 1 focal lesion ( > 5 mm) 2 = >1 focal lesion ( > 5 mm) 3 = Confluent lesions He Guidry et al. The clinical use of structural MRI in Alzheimer disease. Nature Reviews Neurology 6;67 (2010). Mason et al. Validation of a fully automated 3D hippocampal segmentation method using subjects with Alzheimer's disease mild cognitive impairment, and elderly controls. Neuroimage 43;59 (2008). Argenis et al. A New Rating Scale for Age-Related White Matter Changes Applicable to MRI and CT. Stroke. 32:1318 (2001). * Asymmetry index defined as difference between left and right volumes divided by mean (%). Age-matched reference charts measure total hippocampal volume (% of intracranial volume). See results from the analysis charts for details. Transcribed Using Voice Recognition Transcribe Date/Time: Jan 20 2024 8:03A Dictated by: KRUNAL MATT MD This examination was interpreted and the report reviewed and electronically signed by: KRUNAL MATT MD on Jan 20 2024 8:21AM [facility] Radiology Study observation (narrative) [facility] No Panel InformationOrdered By: Ccf Provider on 01-20-2024 [facility] Urinalysis complete panel (U )on 10-06-2023 Bacteria LM.HPF (Urine sed) [#/Area] Negative Negative /HPF [facility] Bilirubin Ql (U) Negative Negative [facility] Clarity (Unsp spec) Clear Clear [facility] Color (U) Yellow Yellow [facility] Epithelial cells LM.HPF (Urine sed) [#/Area] None Seen [facility] Glucose Test strip (U) [Mass/Vol] Negative Negative [facility] Hemoglobin Ql (U) Negative Negative [facility] Hyaline casts (Urine sed) [#/Area] 0 /[LPF] 0 /LPF [facility] Ketones Ql (U) Negative Negative [facility] Leukocyte esterase Test strip Ql (U) Negative Negative [facility] Nitrite Ql (U) Negative Negative [facility] pH (U) 7.0 [pH] <8.5 [facility] Protein (U) [Mass/Vol] Negative Negative [facility] RBC LM.HPF (Urine sed) [#/Area] 0-2 /HPF 0-2 /HPF [facility] Specific gravity (U) [Rel density] 1.012 1.005 - 1.030 [facility] Urobilinogen Ql (U) 1.0 EU/dL 0.2-1.0 EU/dL [facility] WBC LM.HPF (Urine sed) [#/Area] 0-5 /HPF 0-5 /HPF [facility] UA DIP, URINE (POC)on 2023 BILIRUBIN UA (POCT) Negative Negative [facility] CLARITY UA (POCT) Clear [facility] COLOR UA (POCT) Yellow [facility] GLUCOSE UA (POCT) Negative Negative mg/dL [facility] Hemoglobin Ql (U) Trace-intact Abnormal Negative [facility] KETONE UA (POCT) Negative Negative mg/dL [facility] LEUKOCYTES UA (POCT) Negative Negative [facility] NITRITE UA (POCT) Negative Negative [facility] PH UA (POCT) 5.5 4.5 - 8.0 [facility] Protein Ql (U) Negative Negative mg/dL [facility] SPECIFIC GRAVITY UA (POCT) 1.010 1.005 - 1.030 [facility] UROBILINOGEN UA (POCT) 0.2 E.U./dL Normal E.U./dL [facility] XR Shoulder - left 3 Viewson 04-04-2023 IMPRESSION: Stable arthroplasty Linux Admin: PSCB Transcribe Date/Time: Apr 04 2023 9:26A Dictated by : LYNNETTE ARENAS MD This examination was interpreted and the report reviewed and electronically signed by: LYNNETTE ARENAS MD on Apr 04 2023 9:27AM [facility] * * *Final Report* * * DATE OF EXAM: Apr 01 2023 8:53AM [facility] 5252 - XR SHLDR >/=3V AP/BEST AP/OTHR LT / PROCEDURE REASON: multiple diagnoses * * * * Physician Interpretation * * * * PROCEDURE: Left shoulder INDICATION: Chronic left shoulder pain .FOLLOW-UP FOR LEFT SHOULDER TECHNIQUE: XR SHLDR >/=3V AP/BEST AP/OTHR LT COMPARISON: 02/11/2023 FINDINGS: The reverse shoulder arthroplasty remains in satisfactory position without evidence for loosening. No periprosthetic fracture. Degenerative change in the imaged cervical spine. [facility] Provider, Aby Snell - 04/04/2023 * * *Final Report* * * DATE OF EXAM: Apr 01 2023 8:53AM [facility] 5252 - XR SHLDR >/=3V AP/BEST AP/OTHR LT / PROCEDURE REASON: multiple diagnoses * * * * Physician Interpretation * * * * PROCEDURE: Left shoulder INDICATION: Chronic left shoulder pain .FOLLOW-UP FOR LEFT SHOULDER TECHNIQUE: XR SHLDR >/=3V AP/BEST AP/OTHR LT COMPARISON: 02/11/2023 FINDINGS: The reverse shoulder arthroplasty remains in satisfactory position without evidence for loosening. No periprosthetic fracture. Degenerative change in the imaged cervical spine. IMPRESSION IMPRESSION: Stable arthroplasty Linux Admin: PSCB Transcribe Date/Time: Apr 04 2023 9:26A Dictated by : LYNNETTE ARENAS MD This examination was interpreted and the report reviewed and electronically signed by: LYNNETTE ARENAS MD on Apr 04 2023 9:27AM EST [facility] XR Shoulder - left 3 ViewsOr dered By: [facility] Provider on 04-04-2023 [facility] XR Shoulder - left 3 Viewson 04-01-2023 Radiology Study observation (narrative) [facility] XR Shoulder - left 3 Viewson 02-13-2023 IMPRESSION: Stable arthroplasty Linux Admin: PSCB Transcribe Date/Time: Feb 13 2023 1:05P Dictated by : LYNNETTE ARENAS MD This examination was interpreted and the report reviewed and electronically signed by: LYNNETTE ARENAS MD on Feb 13 2023 1:05PM [facility] * * *Final Report* * * DATE OF EXAM: Feb 11 2023 9:10AM [facility] 5252 - XR SHLDR >/=3V AP/BEST AP/OTHR LT / PROCEDURE REASON: multiple diagnoses * * * * Physician Interpretation * * * * PROCEDURE: Left shoulder INDICATION: Chronic left shoulder pain .LEFT SHOULDER PAIN TECHNIQUE: XR SHLDR >/=3V AP/BEST AP/OTHR LT COMPARISON: 12/31/2022 FINDINGS: The reverse shoulder arthroplasty remains in satisfactory position without evidence for loosening. Mild spurring at the AC joint. No fracture. [facility] Provider, Aby [facility] - 02/13/2023 * * *Final Report* * * DATE OF EXAM: Feb 11 2023 9:10AM [facility] 5252 - XR SHLDR >/=3V AP/BEST AP/OTHR LT / PROCEDURE REASON: multiple diagnoses * * * * Physician Interpretation * * * * PROCEDURE: Left shoulder INDICATION: Chronic left shoulder pain .LEFT SHOULDER PAIN TECHNIQUE: XR SHLDR >/=3V AP/BEST AP/OTHR LT COMPARISON: 12/31/2022 FINDINGS: The reverse shoulder arthroplasty remains in satisfactory position without evidence for loosening. Mild spurring at the AC joint. No fracture. IMPRESSION IMPRESSION: Stable arthroplasty Linux Admin: PSCB Transcribe Date/Time: Feb 13 2023 1:05P Dictated by : LYNNETTE ARENAS MD This examination was interpreted and the report reviewed and electronically signed by: LYNNETTE ARENAS MD on Feb 13 2023 1:05PM EST [facility] XR Shoulder - left 3 ViewsOr dered By: [facility] Provider on 02-13-2023 [facility] XR Shoulder - left 3 Viewson 02-11-2023 Radiology Study observation (narrative) [facility] XR Shoulder - left 3 Viewson 01-01-2023 IMPRESSION: Stable arthroplasty Linux Admin: PSCBrea Transcribe Date/Time: Jan 01 2023 8:52A Dictated by : LYNNETTE ARENAS MD This examination was interpreted and the report reviewed and electronically signed by: LYNNETTE ARENAS MD on Jan 01 2023 8:52AM EST [facility] * * *Final Report* * * DATE OF EXAM: Dec 31 2022 2:54PM [facility] 5252 - XR SHLDR >/=3V AP/BEST AP/OTHR LT / PROCEDURE REASON: multiple diagnoses * * * * Physician Interpretation * * * * PROCEDURE: Left shoulder INDICATION: Chronic left shoulder pain TECHNIQUE: XR SHLDR >/=3V AP/BEST AP/OTHR LT COMPARISON: 12/20/2022 FINDINGS: The reverse shoulder arthroplasty remains in satisfactory position without evidence for loosening. No fracture or soft tissue emphysema. [facility] Provider, Aby [facility] - 01/01/2023 * * *Final Report* * * DATE OF EXAM: Dec 31 2022 2:54PM [facility] 5252 - XR SHLDR >/=3V AP/BEST AP/OTHR LT / PROCEDURE REASON: multiple diagnoses * * * * Physician Interpretation * * * * PROCEDURE: Left shoulder INDICATION: Chronic left shoulder pain TECHNIQUE: XR SHLDR >/=3V AP/BEST AP/OTHR LT COMPARISON: 12/20/2022 FINDINGS: The reverse shoulder arthroplasty remains in satisfactory position without evidence for loosening. No fracture or soft tissue emphysema. IMPRESSION IMPRESSION: Stable arthroplasty Linux Admin: [facility] Transcribe Date/Time: Jan 01 2023 8:52A Dictated by : LYNNETTE ARENAS MD This examination was interpreted and the report reviewed and electronically signed by: LYNNETTE ARENAS MD on Jan 01 2023 8:52AM EST [facility] XR Shoulder - left 3 ViewsOr dered By: [facility] Provider on 01-01-2023 [facility] XR Shoulder - left 3 Viewson 12-31-2022 Radiology Study observation (narrative) [facility] ECG COMPLETEon 12-14-2022 Atrial Rate 62 BPM [facility] Calculated P [place] 19 degrees [facility] Calculated R [place] 5 degrees [facility] Calculated T [place] -32 degrees [facility] P-R Interval 142 ms [facility] QRS Duration 74 ms [facility] QT Interval 390 ms [facility] QTC Calculation (Bazett) 435 ms [facility] Vent[facility] B[facility] TYPE AND SCREEN,30 DAYon ABO O [facility] HIstorical Ab Scr Status Negative [facility] Rh Nom (Bld) Positive [facility] MRI BRAIN WO/W IVCONon 09-30 [facility] XR Shoulder - left 3 Viewson 09-22-2022 IMPRESSION: Degenerative changes as described. Linux Admin: [facility] Transcribe Date/Time: Sep 22 2022 10:59A Dictated by : SONYA MATTHEWS MD This examination was interpreted and the report reviewed and electronically signed by: SONYA MATTHEWS MD on Sep 22 2022 11:00AM EST [facility] * * *Final Report* * * DATE OF EXAM: Sep 21 2022 10:02AM [facility] 5252 - XR SHLDR >/=3V AP/BEST AP/OTHR LT / PROCEDURE REASON: Acute pain of left shoulder * * * * Physician Interpretation * * * * TITLE: XR SHLDR >/=3V AP/BEST AP/OTHR LT CLINICAL INDICATION: Shoulder pain TECHNIQUE: 3 view radiographic study of the left shoulder COMPARISON: Radiograph dated July 28, 2018 FINDINGS: No acute fracture or dislocation identified. Mild to moderate glenohumeral joint space narrowing with subchondral sclerosis and small marginal osteophyte formation. Subchondral cystic change within the greater tuberosity. Mild hypertrophic change about the greater tuberosity. [facility] * * *Final Report* * * DATE OF EXAM: Sep 21 2022 10:02AM [facility] 5252 - XR SHLDR >/=3V AP/BEST AP/OTHR LT / PROCEDURE REASON: Acute pain of left shoulder * * * * Physician Interpretation * * * * TITLE: XR SHLDR >/=3V AP/BEST AP/OTHR LT CLINICAL INDICATION: Shoulder pain TECHNIQUE: 3 view radiographic study of the left shoulder COMPARISON: Radiograph dated July 28, 2018 FINDINGS: No acute fracture or dislocation identified. Mild to moderate glenohumeral joint space narrowing with subchondral sclerosis and small marginal osteophyte formation. Subchondral cystic change within the greater tuberosity. Mild hypertrophic change about the greater tuberosity. IMPRESSION IMPRESSION: Degenerative changes as described. Linux Admin: AMILCAR Transcribe Date/Time: Sep 22 2022 10:59A Dictated by : SONYA MATTHEWS MD This examination was interpreted and the report reviewed and electronically signed by: SONYA MATTHEWS MD on Sep 22 2022 11:00AM EST [facility] XR Shoulder - left 3 ViewsOr dered By: [facility] Provider on 09-22-2022 [facility] XR Shoulder - left 3 Viewson 09-21-2022 Radiology Study observation (narrative) [facility] XR Wrist - left PA and Later al and Obliqueon 01-13-2021 IMPRESSION: 1. Soft tissue swelling surrounding the wrist. 2. Mineralization along the volar aspect of the wrist potentially related to chondrocalcinosis. 3. Degenerative changes as described. Linux Admin: AMILCAR Transcribe Date/Time: Jan 13 2021 2:01P Dictated by : SONYA MATTHEWS MD This examination was interpreted and the report reviewed and electronically signed by: SONYA MATTHEWS MD on Jan 13 2021 2:03PM EST [facility] * * *Final Report* * * DATE OF EXAM: Jan 13 2021 9:32AM [facility] 5270 - XR WRIST 3V PA/LAT/OBL LT / PROCEDURE REASON: Swelling of joint of left wrist * * * * Physician Interpretation * * * * CLINICAL INDICATION: Swelling TECHNIQUE: 3 view radiographic study of the left wrist COMPARISON: None FINDINGS: No acute fracture or dislocation identified. Moderate first carpal metacarpal joint and first metacarpal phalangeal joint degenerative changes with joint space narrowing and hypertrophic change. Hypertrophic change about the distal ulna. On the lateral view, there is demineralization along the volar aspect of the wrist which may be related to chondrocalcinosis. Soft tissue swelling surrounding the wrist. [facility] Provider, Aby Snell - 01/13/2021 * * *Final Report* * * DATE OF EXAM: Jan 13 2021 9:32AM WOX [id number] - XR WRIST 3V PA/LAT/OBL LT / PROCEDURE REASON: Swelling of joint of left wrist * * * * Physician Interpretation * * * * CLINICAL INDICATION: Swelling TECHNIQUE: 3 view radiographic study of the left wrist COMPARISON: None FINDINGS: No acute fracture or dislocation identified. Moderate first carpal metacarpal joint and first metacarpal phalangeal joint degenerative changes with joint space narrowing and hypertrophic change. Hypertrophic change about the distal ulna. On the lateral view, there is demineralization along the volar aspect of the wrist which may be related to chondrocalcinosis. Soft tissue swelling surrounding the wrist. IMPRESSION IMPRESSION: 1. Soft tissue swelling surrounding the wrist. 2. Mineralization along the volar aspect of the wrist potentially related to chondrocalcinosis. 3. Degenerative changes as described. Linux Admin: PSCB Transcribe Date/Time: Jan 13 2021 2:01P Dictated by : SONYA MATTHEWS MD This examination was interpreted and the report reviewed and electronically signed by: SONYA MATTHEWS MD on Jan 13 2021 2:03PM [facility] Radiology Study observation (narrative) [facility] XR Wrist - left PA and Later al and ObliqueOrdered By: Ccf Provider on 01-13-2021 [facility] XR Chest PA and Lateralon IMPRESSION: No acute radiographic abnormality. Linux Admin: AMILCAR Transcribe Date/Time: Aug 20 2020 10:28A Dictated by : JOSE ALANIS MD This examination was interpreted and the report reviewed and electronically signed by: JOSE ALANIS MD on Aug 20 2020 10:30AM [facility] DIVISION OF RADIOLOGY * * *Final Report* * * DATE OF EXAM: Aug 20 2020 10:25AM WOX [id number] - XR CHEST 2V FRONTAL/LAT / PROCEDURE REASON: Abnormal chest x-ray * * * * Physician Interpretation * * * * EXAMINATION: CHEST RADIOGRAPH (2 VIEW FRONTAL & LATERAL) CLINICAL HISTORY: Abnormal chest x-ray MQ: XC2_6 EXAM DATE/TIME: 08/20/2020 10:25 AM COMPARISON: Chest x-ray on 08/11/2020. RESULT: Lines, tubes, and devices: None. Lungs and pleura: No consolidation. No lung mass. No pleural effusion. No pneumothorax. Cardiomediastinal silhouette: Normal cardiomediastinal silhouette. Bones and soft tissues: Left seventh rib deformity remains. DIVISION OF RADIOLOGY Provider, [facility] - 08/20/2020 * * *Final Report* * * DATE OF EXAM: Aug 20 2020 10:25AM WOX [id number] - XR CHEST 2V FRONTAL/LAT / PROCEDURE REASON: Abnormal chest x-ray * * * * Physician Interpretation * * * * EXAMINATION: CHEST RADIOGRAPH (2 VIEW FRONTAL & LATERAL) CLINICAL HISTORY: Abnormal chest x-ray MQ: XC2_6 EXAM DATE/TIME: 08/20/2020 10:25 AM COMPARISON: Chest x-ray on 08/11/2020. RESULT: Lines, tubes, and devices: None. Lungs and pleura: No consolidation. No lung mass. No pleural effusion. No pneumothorax. Cardiomediastinal silhouette: Normal cardiomediastinal silhouette. Bones and soft tissues: Left seventh rib deformity remains. IMPRESSION IMPRESSION: No acute radiographic abnormality. Linux Admin: AMILCAR Transcribe Date/Time: Aug 20 2020 10:28A Dictated by : JOSE ALANIS MD This examination was interpreted and the report reviewed and electronically signed by: JOSE ALANIS MD on Aug 20 2020 10:30AM [facility] Radiology Study observation (narrative) [facility] XR Chest PA and LateralOrder ed By: Ccf Provider on 08-20-2020 [facility] XR Chest PA and Lateralon IMPRESSION: Minimal linear indeterminate density in the right mid and lower lung field and at the left base. Likely atelectasis. Developing early infiltrate cannot be excluded Linux Admin: AMILCAR Transcribe Date/Time: Aug 11 2020 12:02P Dictated by : CELSA CHOU MD This examination was interpreted and the report reviewed and electronically signed by: CELSA CHOU MD on Aug 11 2020 12:04PM [facility] DIVISION OF RADIOLOGY * * *Final Report* * * DATE OF EXAM: Aug 11 2020 10:51AM WOX [id number] - XR CHEST 2V FRONTAL/LAT / PROCEDURE REASON: multiple diagnoses * * * * Physician Interpretation * * * * EXAMINATION: CHEST RADIOGRAPH (2 VIEW FRONTAL & LATERAL) CLINICAL HISTORY: Cough Lab test positive for detection of COVID-19 virus MQ: XC2_6 EXAM DATE/TIME: 08/11/2020 10:51 AM COMPARISON: 07/17/2019 RESULT: Lines, tubes, and devices: None. Lungs and pleura: No consolidation. No lung mass. No pleural effusion. No pneumothorax. Minimal linear indeterminate density in the right mid and lower lung field and at the left base. Cardiomediastinal silhouette: Normal cardiomediastinal silhouette. Bones and soft tissues: Unremarkable. Healed left rib fractures. Stable mild wedging of lower thoracic vertebra DIVISION OF RADIOLOGY Provider, [facility] - 08/11/2020 * * *Final Report* * * DATE OF EXAM: Aug 11 2020 10:51AM WOX [id number] - XR CHEST 2V FRONTAL/LAT / PROCEDURE REASON: multiple diagnoses * * * * Physician Interpretation * * * * EXAMINATION: CHEST RADIOGRAPH (2 VIEW FRONTAL & LATERAL) CLINICAL HISTORY: Cough Lab test positive for detection of COVID-19 virus MQ: XC2_6 EXAM DATE/TIME: 08/11/2020 10:51 AM COMPARISON: 07/17/2019 RESULT: Lines, tubes, and devices: None. Lungs and pleura: No consolidation. No lung mass. No pleural effusion. No pneumothorax. Minimal linear indeterminate density in the right mid and lower lung field and at the left base. Cardiomediastinal silhouette: Normal cardiomediastinal silhouette. Bones and soft tissues: Unremarkable. Healed left rib fractures. Stable mild wedging of lower thoracic vertebra IMPRESSION IMPRESSION: Minimal linear indeterminate density in the right mid and lower lung field and at the left base. Likely atelectasis. Developing early infiltrate cannot be excluded Linux Admin: AMILCAR Transcribe Date/Time: Aug 11 2020 12:02P Dictated by : CELSA CHOU MD This examination was interpreted and the report reviewed and electronically signed by: CELSA CHOU MD on Aug 11 2020 12:04PM EST [facility] Radiology Study observation (narrative) [facility] XR Chest PA and LateralOrder ed By: Ccf Provider on 08-11-2020 [facility] Vital Signs Date Time Vital Sign Value Performing Clinician Facility 01-24-2025 13:48-0400 Body mass index (BMI) [Ratio] 25.25 kg/m2 Leticia Harding [employer]PROMOTIONS REPRESENTATIVE Work Phone: [facility] 01-24-2025 13:48-0400 Body weight 77.56 kg Leticia Harding [employer].PROMOTIONS REPRESENTATIVE Work Phone: [facility] 01-24-2025 13:48-0400 Diastolic blood pressure 78 mm[Hg] Leticia Harding [employer].PROMOTIONS REPRESENTATIVE Work Phone: [facility] 01-24-2025 13:48-0400 Heart rate 63 /min Leticia Harding [employer].PROMOTIONS REPRESENTATIVE Work Phone: [facility] 01-24-2025 13:48-0400 SaO2% (BldA) [Mass fraction] 97 % Leticia Supppaulina [employer].PROMOTIONS REPRESENTATIVE Work Phone: [facility] 01-24-2025 13:48-0400 Systolic blood pressure 130 mm[Hg] Leticia Harding [employer].PROMOTIONS REPRESENTATIVE Work Phone: [facility] 01-16-2025 02:43-0400 Body temperature 98 [degF] Dr. Jose Juan Christine MD Work Phone: [facility] 01-16-2025 02:43-0400 Diastolic blood pressure 81 mm[Hg] Dr. Jose Juan Christine MD Work Phone: [facility] 01-16-2025 02:43-0400 Heart rate 65 /min Dr. Jose Juan Christine MD Work Phone: [facility] 01-16-2025 02:43-0400 Respiratory rate 18 /min Dr. Jose Juan Christine MD Work Phone: [facility] 01-16-2025 02:43-0400 SaO2% (BldA) [Mass fraction] 98 % Dr. Jose Juan Christine MD Work Phone: [facility] 01-16-2025 02:43-0400 Systolic blood pressure 139 mm[Hg] Dr. Jose Juan Christine MD Work Phone: [facility] 01-16-2025 01:10-0400 Body height 177.[address] Jose Juan Christine MD Work Phone: [facility] 11-06-2024 10:07-0400 Body mass index (BMI) [Ratio] 25.08 kg/m2 Alexus Billyguru [employer].PROMOTIONS REPRESENTATIVE Work Phone: [facility] 11-06-2024 10:07-0400 Body weight 77.02 kg Alexus Billyguru [employer].PROMOTIONS REPRESENTATIVE Work Phone: [facility] 11-06-2024 10:07-0400 Diastolic blood pressure 82 mm[Hg] Alexus Rajguru [employer].PROMOTIONS REPRESENTATIVE Work Phone: [facility] 11-06-2024 10:07-0400 Heart rate 71 /min Alexus Rajguru [employer].PROMOTIONS REPRESENTATIVE Work Phone: [facility] 11-06-2024 10:07-0400 Respiratory rate 16 /min Alexus Rajguru [employer].PROMOTIONS REPRESENTATIVE Work Phone: [facility] 11-06-2024 10:07-0400 SaO2% (BldA) [Mass fraction] 98 % Alexus Rajguru [employer].PROMOTIONS REPRESENTATIVE Work Phone: [facility] 11-06-2024 10:07-0400 Systolic blood pressure 136 mm[Hg] Alexus Rajguru [employer].PROMOTIONS REPRESENTATIVE Work Phone: [facility] 10-29-2024 10:14-0500 Body mass index (BMI) [Ratio] 25.1 kg/m2 Leticia Suppan [employer].PROMOTIONS REPRESENTATIVE Work Phone: [facility] 10-29-2024 10:14-0500 Body temperature 99 [degF] Leticia Suppan [employer].PROMOTIONS REPRESENTATIVE Work Phone: [facility] 10-29-2024 10:14-0500 Body weight 77.11 kg Leticia Suppan [employer].PROMOTIONS REPRESENTATIVE Work Phone: [facility] 10-29-2024 10:14-0500 Diastolic blood pressure 86 mm[Hg] Leticia Suppan [employer].PROMOTIONS REPRESENTATIVE Work Phone: [facility] 10-29-2024 10:14-0500 Heart rate 66 /min Leticia Suppan [employer].PROMOTIONS REPRESENTATIVE Work Phone: [facility] 10-29-2024 10:14-0500 SaO2% (BldA) [Mass fraction] 100 % Leticia Suppan [employer].PROMOTIONS REPRESENTATIVE Work Phone: [facility] 10-29-2024 10:14-0500 Systolic blood pressure 122 mm[Hg] Leticia Suppan [employer].PROMOTIONS REPRESENTATIVE Work Phone: [facility] 10-24-2024 11:57-0500 Body mass index (BMI) [Ratio] 25.59 kg/m2 Erum Clutter PA-C Work Phone: [facility] 10-24-2024 11:57-0500 Body temperature 99.19 [degF] Erum Clutter PA-C Work Phone: [facility] 10-24-2024 11:57-0500 Body weight 78.6 kg Erum Clutter PA-C Work Phone: [facility] 10-24-2024 11:57-0500 Diastolic blood pressure 64 mm[Hg] Erum Clutter PA-C Work Phone: [facility] 10-24-2024 11:57-0500 Heart rate 80 /min Erum Clutter PA-C Work Phone: [facility] 10-24-2024 11:57-0500 Respiratory rate 16 /min Erum Clutter PA-C Work Phone: [facility] 10-24-2024 11:57-0500 SaO2% (BldA) [Mass fraction] 97 % Erum Clutter PA-C Work Phone: [facility] 10-24-2024 11:57-0500 Systolic blood pressure 108 mm[Hg] Erum Clutter PA-C Work Phone: [facility] 09-14-2024 07:39-0500 Body mass index (BMI) [Ratio] 25.46 kg/m2 Gloria Morrow MD Work Phone: [facility] 09-14-2024 07:39-0500 Body temperature 97.3 [degF] Gloria Morrow MD Work Phone: [facility] 09-14-2024 07:39-0500 Body weight 78.2 kg Gloria Morrow MD Work Phone: [facility] 09-14-2024 07:39-0500 Diastolic blood pressure 84 mm[Hg] Gloria Morrow MD Work Phone: [facility] 09-14-2024 07:39-0500 Heart rate 73 /min Gloria Morrow MD Work Phone: [facility] 09-14-2024 07:39-0500 Respiratory rate 21 /min Gloria Morrow MD Work Phone: [facility] 09-14-2024 07:39-0500 SaO2% (BldA) [Mass fraction] 99 % Gloria Morrow MD Work Phone: [facility] 09-14-2024 07:39-0500 Systolic blood pressure 120 mm[Hg] Gloria Morrow MD Work Phone: [facility] 09-10-2024 14:42-0500 Body mass index (BMI) [Ratio] 26.58 kg/m2 Leticia Suppan [employer].PROMOTIONS REPRESENTATIVE Work Phone: [facility] 09-10-2024 14:42-0500 Body temperature 98.91 [degF] Leticia Suppan [employer].PROMOTIONS REPRESENTATIVE Work Phone: [facility] 09-10-2024 14:42-0500 Body weight 81.65 kg Leticia Suppan [employer].PROMOTIONS REPRESENTATIVE Work Phone: [facility] 09-10-2024 14:42-0500 Diastolic blood pressure 78 mm[Hg] Leticia Suppan [employer].PROMOTIONS REPRESENTATIVE Work Phone: [facility] 09-10-2024 14:42-0500 Heart rate 72 /min Leticia Suppan [employer].PROMOTIONS REPRESENTATIVE Work Phone: [facility] 09-10-2024 14:42-0500 SaO2% (BldA) [Mass fraction] 96 % Leticia Suppan [employer].PROMOTIONS REPRESENTATIVE Work Phone: [facility] 09-10-2024 14:42-0500 Systolic blood pressure 126 mm[Hg] Leticia Suppan [employer].PROMOTIONS REPRESENTATIVE Work Phone: [facility] 09-05-2024 13:10-0500 Body height 175.3 cm Luis Eduardo Rico PA-C Work Phone: [facility] 09-05-2024 13:10-0500 Body mass index (BMI) [Ratio] 24.94 kg/m2 Luis Eduardo Rico PA-C Work Phone: [facility] 09-05-2024 13:10-0500 Body weight 76.6 kg Luis Eduardo Murphyki PA-C Work Phone: [facility] 08-30-2024 16:11-0500 Body mass index (BMI) [Ratio] 23.32 kg/m2 Leticia Suppan [employer].PROMOTIONS REPRESENTATIVE Work Phone: [facility] 08-30-2024 16:11-0500 Body temperature 98.91 [degF] Leticia Suppan [employer].PROMOTIONS REPRESENTATIVE Work Phone: [facility] 08-30-2024 16:11-0500 Body weight 78 kg Leticia Suppan [employer].PROMOTIONS REPRESENTATIVE Work Phone: [facility] 08-30-2024 16:11-0500 Diastolic blood pressure 72 mm[Hg] Leticia Suppan [employer].PROMOTIONS REPRESENTATIVE Work Phone: [facility] 08-30-2024 16:11-0500 Heart rate 81 /min Leticia Suppan [employer].PROMOTIONS REPRESENTATIVE Work Phone: [facility] 08-30-2024 16:11-0500 SaO2% (BldA) [Mass fraction] 93 % Leticia Suppan [employer].PROMOTIONS REPRESENTATIVE Work Phone: [facility] 08-30-2024 16:11-0500 Systolic blood pressure 116 mm[Hg] Leticia Suppan [employer].PROMOTIONS REPRESENTATIVE Work Phone: [facility] 07-10-2024 14:40-0500 Body mass index (BMI) [Ratio] 23.19 kg/m2 Alexus Rajguru [employer].PROMOTIONS REPRESENTATIVE Work Phone: [facility] 07-10-2024 14:40-0500 Body weight 77.56 kg Alexus Rajguru [employer].PROMOTIONS REPRESENTATIVE Work Phone: [facility] 07-10-2024 14:40-0500 Diastolic blood pressure 60 mm[Hg] Alexus Rajguru [employer].PROMOTIONS REPRESENTATIVE Work Phone: [facility] 07-10-2024 14:40-0500 Heart rate 60 /min Alexus Rajguru [employer].PROMOTIONS REPRESENTATIVE Work Phone: [facility] 07-10-2024 14:40-0500 Respiratory rate 16 /min Alexus Rajguru [employer].PROMOTIONS REPRESENTATIVE Work Phone: [facility] 07-10-2024 14:40-0500 Systolic blood pressure 120 mm[Hg] Alexus Rajguru [employer].PROMOTIONS REPRESENTATIVE Work Phone: [facility] 06-18-2024 07:56-0400 Body mass index (BMI) [Ratio] 23.02 kg/m2 Krislyn Aberegg PA Work Phone: [facility] 06-18-2024 07:56-0400 Body temperature 98.1 [degF] Krislyn Aberegg PA Work Phone: [facility] 06-18-2024 07:56-0400 Body weight 77 kg Krislyn Aberegg PA Work Phone: [facility] 06-18-2024 07:56-0400 Diastolic blood pressure 80 mm[Hg] Krislyn Aberegg PA Work Phone: [facility] 06-18-2024 07:56-0400 Heart rate 66 /min Krislyn Aberegg PA Work Phone: [facility] 06-18-2024 07:56-0400 Respiratory rate 16 /min Krislyn Aberegg PA Work Phone: [facility] 06-18-2024 07:56-0400 SaO2% (BldA) [Mass fraction] 99 % Krislyn Aberegg PA Work Phone: [facility] 06-18-2024 07:56-0400 Systolic blood pressure 132 mm[Hg] Krislyn Aberegg PA Work Phone: [facility] 05-24-2024 10:42-0400 Body height 182.9 cm Shawanda Hale APRN.PROMOTIONS REPRESENTATIVE Work Phone: [facility] 05-24-2024 10:42-0400 Body mass index (BMI) [Ratio] 22.24 kg/m2 Shawanda Hale APRN.PROMOTIONS REPRESENTATIVE Work Phone: [facility] 05-24-2024 10:42-0400 Body weight 74.39 kg Shawanda Hale APRN.PROMOTIONS REPRESENTATIVE Work Phone: [facility] 05-24-2024 10:42-0400 Diastolic blood pressure 73 mm[Hg] Shawanda Hale APRN.PROMOTIONS REPRESENTATIVE Work Phone: [facility] 05-24-2024 10:42-0400 Heart rate 56 /min Shawanda Hale APRN.PROMOTIONS REPRESENTATIVE Work Phone: [facility] 05-24-2024 10:42-0400 Systolic blood pressure 128 mm[Hg] Shawanda Hale APRN.PROMOTIONS REPRESENTATIVE Work Phone: [facility] 05-21-2024 08:40-0400 Body mass index (BMI) [Ratio] 22.62 kg/m2 Krunal Barragan MD Work Phone: [facility] 05-21-2024 08:40-0400 Body weight 75.66 kg Krunal Barragan MD Work Phone: [facility] 05-21-2024 08:40-0400 Diastolic blood pressure 86 mm[Hg] Krunal Barragan MD Work Phone: [facility] 05-21-2024 08:40-0400 Heart rate 61 /min Krunal Barragan MD Work Phone: [facility] 05-21-2024 08:40-0400 SaO2% (BldA) [Mass fraction] 98 % Krunal Barragan MD Work Phone: [facility] 05-21-2024 08:40-0400 Systolic blood pressure 127 mm[Hg] Krunal Barragan MD Work Phone: [facility] 05-01-2024 11:21-0400 Body mass index (BMI) [Ratio] 22.38 kg/m2 Leticia Suppan [employer].PROMOTIONS REPRESENTATIVE Work Phone: [facility] 05-01-2024 11:21-0400 Body temperature 98.29 [degF] Leticia Suppan [employer].PROMOTIONS REPRESENTATIVE Work Phone: [facility] 05-01-2024 11:21-0400 Body weight 74.84 kg Leticia Suppan [employer].PROMOTIONS REPRESENTATIVE Work Phone: [facility] 05-01-2024 11:21-0400 Diastolic blood pressure 68 mm[Hg] Leticia Suppan [employer].PROMOTIONS REPRESENTATIVE Work Phone: [facility] 05-01-2024 11:21-0400 Heart rate 72 /min Leticia Miguelan [employer].PROMOTIONS REPRESENTATIVE Work Phone: [facility] 05-01-2024 11:21-0400 Respiratory rate 12 /min Leticia Suppan [employer].PROMOTIONS REPRESENTATIVE Work Phone: [facility] 05-01-2024 11:21-0400 SaO2% (BldA) [Mass fraction] 99 % Leticia Suppan [employer].PROMOTIONS REPRESENTATIVE Work Phone: [facility] 05-01-2024 11:21-0400 Systolic blood pressure 110 mm[Hg] Leticia Suppan [employer].PROMOTIONS REPRESENTATIVE Work Phone: [facility] 04-27-2024 19:09-0400 Body mass index (BMI) [Ratio] 22.51 kg/m2 Arturo Lema [employer].PROMOTIONS REPRESENTATIVE Work Phone: [facility] 04-27-2024 19:09-0400 Body temperature 100.29 [degF] Arturo Lema [employer].PROMOTIONS REPRESENTATIVE Work Phone: [facility] 04-27-2024 19:09-0400 Body weight 75.3 kg Arturo Lema [employer].PROMOTIONS REPRESENTATIVE Work Phone: [facility] 04-27-2024 19:09-0400 Diastolic blood pressure 73 mm[Hg] Arturo Lema [employer].PROMOTIONS REPRESENTATIVE Work Phone: [facility] 04-27-2024 19:09-0400 Heart rate 91 /min Arturo Lema [employer].PROMOTIONS REPRESENTATIVE Work Phone: [facility] 04-27-2024 19:09-0400 Respiratory rate 18 /min Arturo Lema [employer].PROMOTIONS REPRESENTATIVE Work Phone: [facility] 04-27-2024 19:09-0400 SaO2% (BldA) [Mass fraction] 95 % Arturo Lema [employer].PROMOTIONS REPRESENTATIVE Work Phone: [facility] 04-27-2024 19:09-0400 Systolic blood pressure 113 mm[Hg] Arturo Lema [employer].PROMOTIONS REPRESENTATIVE Work Phone: [facility] 04-14-2024 11:27-0400 Body mass index (BMI) [Ratio] 22.78 kg/m2 Willi Church APRN.PROMOTIONS REPRESENTATIVE Work Phone: [facility] 04-14-2024 11:27-0400 Body temperature 99.5 [degF] Willi Church APRN.PROMOTIONS REPRESENTATIVE Work Phone: [facility] 04-14-2024 11:27-0400 Body weight 76.2 kg Willi Church APRN.PROMOTIONS REPRESENTATIVE Work Phone: [facility] 04-14-2024 11:27-0400 Diastolic blood pressure 66 mm[Hg] Willi Church APRN.PROMOTIONS REPRESENTATIVE Work Phone: [facility] 04-14-2024 11:27-0400 Heart rate 69 /min Willi Church APRN.PROMOTIONS REPRESENTATIVE Work Phone: [facility] 04-14-2024 11:27-0400 Respiratory rate 18 /min Willi Church APRN.PROMOTIONS REPRESENTATIVE Work Phone: [facility] 04-14-2024 11:27-0400 SaO2% (BldA) [Mass fraction] 97 % Willi Church APRN.PROMOTIONS REPRESENTATIVE Work Phone: [facility] 04-14-2024 11:27-0400 Systolic blood pressure 106 mm[Hg] Willi Church APRN.PROMOTIONS REPRESENTATIVE Work Phone: [facility] 02-24-2024 10:42-0400 Body mass index (BMI) [Ratio] 23.29 kg/m2 Shawanda Hale APRN.PROMOTIONS REPRESENTATIVE Work Phone: [facility] 02-24-2024 10:42-0400 Body weight 77.88 kg Shawanda Hale APRN.PROMOTIONS REPRESENTATIVE Work Phone: [facility] 02-24-2024 10:42-0400 Diastolic blood pressure 82 mm[Hg] Shawanda Hale APRN.PROMOTIONS REPRESENTATIVE Work Phone: [facility] 02-24-2024 10:42-0400 Heart rate 45 /min Shawanda Hale APRN.PROMOTIONS REPRESENTATIVE Work Phone: [facility] 02-24-2024 10:42-0400 Systolic blood pressure 141 mm[Hg] Shawanda Hale APRN.PROMOTIONS REPRESENTATIVE Work Phone: [facility] 02-07-2024 09:48-0400 Body height 182.9 cm Russell Prasad PA-C Work Phone: [facility] 02-07-2024 09:48-0400 Body mass index (BMI) [Ratio] 23.57 kg/m2 Russell Prasad PA-C Work Phone: [facility] 02-07-2024 09:48-0400 Body temperature 98.4 [degF] Russell Prasad PA-C Work Phone: [facility] 02-07-2024 09:48-0400 Body weight 78.83 kg Russell Prasad PA-C Work Phone: [facility] 02-07-2024 09:48-0400 Diastolic blood pressure 74 mm[Hg] Russell Prasad PA-C Work Phone: [facility] 02-07-2024 09:48-0400 Heart rate 56 /min Russell Prasad PA-C Work Phone: [facility] Comment on above: Russell notified of pulse 02-07-2024 09:48-0400 Respiratory rate 14 /min Russell Prasad PA-C Work Phone: [facility] 02-07-2024 09:48-0400 SaO2% (BldA) [Mass fraction] 99 % Russell Prasad PA-C Work Phone: [facility] 02-07-2024 09:48-0400 Systolic blood pressure 104 mm[Hg] Russell Prasad PA-C Work Phone: [facility] 01-31-2024 15:45-0400 Body height 180.3 cm Lori Chauhan MD Work Phone: [facility] 01-31-2024 15:45-0400 Body mass index (BMI) [Ratio] 24.27 kg/m2 Lori Chauhan MD Work Phone: [facility] 01-31-2024 15:45-0400 Body weight 78.93 kg Lori Chauhan MD Work Phone: [facility] 01-31-2024 15:45-0400 Diastolic blood pressure 78 mm[Hg] Lori Chauhan MD Work Phone: [facility] 01-31-2024 15:45-0400 Heart rate 69 /min Lori Chauhan MD Work Phone: [facility] 01-31-2024 15:45-0400 SaO2% (BldA) [Mass fraction] 98 % Lori Chauhan MD Work Phone: [facility] 01-31-2024 15:45-0400 Systolic blood pressure 120 mm[Hg] Lori Chauhan MD Work Phone: [facility] 01-27-2024 10:59-0400 Body mass index (BMI) [Ratio] 24.24 kg/m2 Shawanda Hale APRN.PROMOTIONS REPRESENTATIVE Work Phone: [facility] 01-27-2024 10:59-0400 Body weight 78.83 kg Shawanda Hale APRN.PROMOTIONS REPRESENTATIVE Work Phone: [facility] 01-27-2024 10:59-0400 Diastolic blood pressure 79 mm[Hg] Shawanda Hale APRN.PROMOTIONS REPRESENTATIVE Work Phone: [facility] 01-27-2024 10:59-0400 Heart rate 50 /min Shawanda Hale APRN.PROMOTIONS REPRESENTATIVE Work Phone: [facility] 01-27-2024 10:59-0400 Systolic blood pressure 144 mm[Hg] Shawanda Hale APRN.PROMOTIONS REPRESENTATIVE Work Phone: [facility] 12-27-2023 08:08-0400 Body mass index (BMI) [Ratio] 23.99 kg/m2 Alexus Naik APRN.PROMOTIONS REPRESENTATIVE Work Phone: [facility] 12-27-2023 08:08-0400 Body weight 78.02 kg Alexus Rajguru [employer] PROFESSIONALS.PROMOTIONS REPRESENTATIVE Work Phone: [facility] 12-27-2023 08:08-0400 Diastolic blood pressure 74 mm[Hg] Alexus Naik SEC[employer]ITY PROFESSIONALS.PROMOTIONS REPRESENTATIVE Work Phone: [facility] 12-27-2023 08:08-0400 Heart rate 64 /min Alexus Naik SECURITY PROFESSIONALS.PROMOTIONS REPRESENTATIVE Work Phone: [facility] 12-27-2023 08:08-0400 Systolic blood pressure 110 mm[Hg] Alexus Naik SEC[employer]ITY PROFESSIONALS.PROMOTIONS REPRESENTATIVE Work Phone: [facility] 12-19-2023 13:35-0400 Body mass index (BMI) [Ratio] 24.13 kg/m2 Shawanda Hale APRN.PROMOTIONS REPRESENTATIVE Work Phone: [facility] 12-19-2023 13:35-0400 Body weight 78.47 kg Shawanda Hale APRN.PROMOTIONS REPRESENTATIVE Work Phone: [facility] 12-19-2023 13:35-0400 Diastolic blood pressure 68 mm[Hg] Shawanda Hale APRN.PROMOTIONS REPRESENTATIVE Work Phone: [facility] 12-19-2023 13:35-0400 Heart rate 54 /min Shawanda Hale APRN.PROMOTIONS REPRESENTATIVE Work Phone: [facility] 12-19-2023 13:35-0400 Systolic blood pressure 117 mm[Hg] Shawanda Hale APRN.PROMOTIONS REPRESENTATIVE Work Phone: [facility] 10-25-2023 08:26-0500 Body weight 75.93 kg Alexus Naik APRN.PROMOTIONS REPRESENTATIVE Work Phone: [facility] 10-25-2023 08:26-0500 Diastolic blood pressure 56 mm[Hg] Alexus Guardadoru SEC[employer]ITY PROFESSIONALS.PROMOTIONS REPRESENTATIVE Work Phone: [facility] 10-25-2023 08:26-0500 Heart rate 64 /min Alexus Guardadoru SEC[employer]ITY PROFESSIONALS.PROMOTIONS REPRESENTATIVE Work Phone: [facility] 10-25-2023 08:26-0500 Systolic blood pressure 118 mm[Hg] Alexus Naik SECURITY PROFESSIONALS.PROMOTIONS REPRESENTATIVE Work Phone: [facility] 10-05-2023 15:13-0500 Body height 180.3 cm Lori Chauhan MD Work Phone: [facility] 10-05-2023 15:13-0500 Body weight 76.2 kg Lori Chauhan MD Work Phone: [facility] 10-05-2023 15:13-0500 Diastolic blood pressure 72 mm[Hg] Lori Chauhan MD Work Phone: [facility] 10-05-2023 15:13-0500 Heart rate 61 /min Lori Chauhan MD Work Phone: [facility] 10-05-2023 15:13-0500 SaO2% (BldA) [Mass fraction] 98 % Lori Chauhan MD Work Phone: [facility] 10-05-2023 15:13-0500 Systolic blood pressure 106 mm[Hg] Lori Chauhan MD Work Phone: [facility] 10-03-2023 14:52-0500 Body temperature 97 [degF] Geovany Stewart SECURITY PROFESSIONALS.PROMOTIONS REPRESENTATIVE Work Phone: [facility] 10-03-2023 14:52-0500 Body weight 77.29 kg Geovany Stewart SECURITY PROFESSIONALS.PROMOTIONS REPRESENTATIVE Work Phone: [facility] 10-03-2023 14:52-0500 Diastolic blood pressure 80 mm[Hg] Geovany Stewart SECURITY PROFESSIONALS.PROMOTIONS REPRESENTATIVE Work Phone: [facility] 10-03-2023 14:52-0500 Heart rate 65 /min Geovany Stewart SECURITY PROFESSIONALS.PROMOTIONS REPRESENTATIVE Work Phone: [facility] 10-03-2023 14:52-0500 Respiratory rate 21 /min Geovany Stewart SECURITY PROFESSIONALS.PROMOTIONS REPRESENTATIVE Work Phone: [facility] 10-03-2023 14:52-0500 SaO2% (BldA) [Mass fraction] 99 % Geovany Stewart SECURITY PROFESSIONALS.PROMOTIONS REPRESENTATIVE Work Phone: [facility] 10-03-2023 14:52-0500 Systolic blood pressure 142 mm[Hg] Geovany Stewart SECURITY PROFESSIONALSLorettaPROMOTIONS REPRESENTATIVE Work Phone: [facility] 08-02-2023 08:08-0500 Body temperature 97.7 [degF] NA Mckinley PA-C Work Phone: [facility] 08-02-2023 08:08-0500 Body weight 77.11 kg NA Mckinley PA-C Work Phone: [facility] 08-02-2023 08:08-0500 Diastolic blood pressure 78 mm[Hg] NA Mckinley PA-C Work Phone: [facility] 08-02-2023 08:08-0500 Heart rate 56 /min NA Mckinley PA-C Work Phone: [facility] 08-02-2023 08:08-0500 Respiratory rate 16 /min NA Mckinley PA-C Work Phone: [facility] 08-02-2023 08:08-0500 SaO2% (BldA) [Mass fraction] 97 % NA Mckinley PA-C Work Phone: [facility] 08-02-2023 08:08-0500 Systolic blood pressure 120 mm[Hg] NA Mckinley PA-C Work Phone: [facility] 07-11-2023 09:45-0500 Body temperature 98.29 [degF] Gloria Morrow MD Work Phone: [facility] 07-11-2023 09:45-0500 Body weight 78.83 kg Gloria Morrow MD Work Phone: [facility] 07-11-2023 09:45-0500 Diastolic blood pressure 68 mm[Hg] Gloria Morrow MD Work Phone: [facility] 07-11-2023 09:45-0500 Heart rate 60 /min Gloria Morrow MD Work Phone: [facility] 07-11-2023 09:45-0500 Respiratory rate 18 /min Gloria Morrow MD Work Phone: [facility] 07-11-2023 09:45-0500 SaO2% (BldA) [Mass fraction] 98 % Gloria Morrow MD Work Phone: [facility] 07-11-2023 09:45-0500 Systolic blood pressure 121 mm[Hg] Gloria Morrow MD Work Phone: [facility] 06-14-2023 08:04-0400 Body weight 75.75 kg NA Mckinley PA-C Work Phone: [facility] 06-14-2023 08:04-0400 Diastolic blood pressure 78 mm[Hg] NA Mckinley PA-C Work Phone: [facility] 06-14-2023 08:04-0400 Heart rate 57 /min NA Mckinley PA-C Work Phone: [facility] 06-14-2023 08:04-0400 Respiratory rate 18 /min NA Mckinley PA-C Work Phone: [facility] 06-14-2023 08:04-0400 SaO2% (BldA) [Mass fraction] 97 % NA Mckinley PA-C Work Phone: [facility] 06-14-2023 08:04-0400 Systolic blood pressure 118 mm[Hg] NA Mckinley PA-C Work Phone: [facility] 05-23-2023 15:43-0400 Body weight 77.56 kg Krunal Barragan MD Work Phone: [facility] 05-23-2023 15:43-0400 Diastolic blood pressure 76 mm[Hg] Krunal Barragan MD Work Phone: [facility] 05-23-2023 15:43-0400 Heart rate 56 /min Krunal Barragan MD Work Phone: [facility] 05-23-2023 15:43-0400 SaO2% (BldA) [Mass fraction] 96 % Krunal Barragan MD Work Phone: [facility] 05-23-2023 15:43-0400 Systolic blood pressure 122 mm[Hg] Krunal Barragan MD Work Phone: [facility] 05-04-2023 08:02-0400 Body height 180.3 cm Lori Muro Jr., MD Work Phone: [facility] 05-04-2023 08:02-0400 Body weight 77.93 kg Lori Muro Jr., MD Work Phone: [facility] 05-04-2023 08:02-0400 Diastolic blood pressure 62 mm[Hg] Lori Muro Jr., MD Work Phone: [facility] 05-04-2023 08:02-0400 Heart rate 63 /min Lori Muro Jr., MD Work Phone: [facility] 05-04-2023 08:02-0400 SaO2% (BldA) [Mass fraction] 97 % Lori Muro Jr., MD Work Phone: [facility] 05-04-2023 08:02-0400 Systolic blood pressure 87 mm[Hg] Lori Muro Jr., MD Work Phone: [facility] 12-13-2022 08:27-0400 Body height 180.3 cm Pacc 1 Work Phone: [facility] 12-13-2022 08:27-0400 Body temperature 98.4 [degF] Pacc 1 Work Phone: [facility] 12-13-2022 08:27-0400 Body weight 81.65 kg Pacc 1 Work Phone: [facility] 12-13-2022 08:27-0400 Diastolic blood pressure 90 mm[Hg] Pacc 1 Work Phone: [facility] 12-13-2022 08:27-0400 Heart rate 58 /min Pacc 1 Work Phone: [facility] 12-13-2022 08:27-0400 Respiratory rate 14 /min Pacc 1 Work Phone: [facility] 12-13-2022 08:27-0400 SaO2% (BldA) [Mass fraction] 97 % [facility] 1 Work Phone: [facility] 12-13-2022 08:27-0400 Systolic blood pressure 130 mm[Hg] [facility] 1 Work Phone: [facility] 10-25-2022 11:19-0500 Body weight 81.19 kg Krunal Barragan MD Work Phone: [facility] 10-25-2022 11:19-0500 Diastolic blood pressure 68 mm[Hg] Krunal Barragan MD Work Phone: [facility] 10-25-2022 11:19-0500 Heart rate 58 /min Krunal Barragan MD Work Phone: [facility] 10-25-2022 11:19-0500 SaO2% (BldA) [Mass fraction] 99 % Krunal Barragan MD Work Phone: [facility] 10-25-2022 11:19-0500 Systolic blood pressure 98 mm[Hg] Krunal Barragan MD Work Phone: [facility] 10-25-2022 08:01-0500 Body weight 80.74 kg NA Mckinley PA-C Work Phone: [facility] 10-25-2022 08:01-0500 Diastolic blood pressure 68 mm[Hg] NA Mckinley PA-C Work Phone: [facility] 10-25-2022 08:01-0500 Heart rate 64 /min NA Mckinley PA-C Work Phone: [facility] 10-25-2022 08:01-0500 Respiratory rate 18 /min NA Mckinley PA-C Work Phone: [facility] 10-25-2022 08:01-0500 SaO2% (BldA) [Mass fraction] 96 % NA Mckinley PA-C Work Phone: [facility] 10-25-2022 08:01-0500 Systolic blood pressure 120 mm[Hg] NA Mckinley PA-C Work Phone: [facility] 09-28-2022 08:27-0500 Body weight 82.1 kg NA Mckinley PA-C Work Phone: [facility] 09-28-2022 08:27-0500 Diastolic blood pressure 70 mm[Hg] NA Mckinley PA-C Work Phone: [facility] 09-28-2022 08:27-0500 Heart rate 68 /min NA Mckinley PA-C Work Phone: [facility] 09-28-2022 08:27-0500 Respiratory rate 16 /min NA Mckinley PA-C Work Phone: [facility] 09-28-2022 08:27-0500 SaO2% (BldA) [Mass fraction] 100 % NA Mckinley PA-C Work Phone: [facility] 09-28-2022 08:27-0500 Systolic blood pressure 104 mm[Hg] NA Mckinley PA-C Work Phone: [facility] 09-21-2022 09:32-0500 Diastolic blood pressure 84 mm[Hg] Marah Haagen SECURITY PROFESSIONALS.PROMOTIONS REPRESENTATIVE Work Phone: [facility] 09-21-2022 09:32-0500 Heart rate 71 /min Marah Haagen SECURITY PROFESSIONALS.PROMOTIONS REPRESENTATIVE Work Phone: [facility] 09-21-2022 09:32-0500 Respiratory rate 18 /min Marah Haagen SECURITY PROFESSIONALS.PROMOTIONS REPRESENTATIVE Work Phone: [facility] 09-21-2022 09:32-0500 SaO2% (BldA) [Mass fraction] 91 % Marah Haagen SECURITY PROFESSIONALS.PROMOTIONS REPRESENTATIVE Work Phone: [facility] 09-21-2022 09:32-0500 Systolic blood pressure 130 mm[Hg] Marah Haagen SECURITY PROFESSIONALS.PROMOTIONS REPRESENTATIVE Work Phone: [facility] 09-06-2022 11:47-0500 Body weight 81.19 kg NA Mckinley PA-C Work Phone: [facility] 09-06-2022 11:47-0500 Diastolic blood pressure 78 mm[Hg] NA Mckinley PA-C Work Phone: [facility] 09-06-2022 11:47-0500 Heart rate 60 /min NA Mckinley PA-C Work Phone: [facility] 09-06-2022 11:47-0500 Respiratory rate 16 /min NA Mckinley PA-C Work Phone: [facility] 09-06-2022 11:47-0500 SaO2% (BldA) [Mass fraction] 98 % NA Mckinley PA-C Work Phone: [facility] 09-06-2022 11:47-0500 Systolic blood pressure 120 mm[Hg] NA Mckinley PA-C Work Phone: [facility] 06-07-2022 08:08-0400 Body weight 81.1 kg NA Mckinley PA-C Work Phone: [facility] 06-07-2022 08:08-0400 Diastolic blood pressure 72 mm[Hg] NA Mckinley PA-C Work Phone: [facility] 06-07-2022 08:08-0400 Heart rate 64 /min NA Mckinley PA-C Work Phone: [facility] 06-07-2022 08:08-0400 Respiratory rate 16 /min NA Mckinley PA-C Work Phone: [facility] 06-07-2022 08:08-0400 Systolic blood pressure 114 mm[Hg] NA Mckinley PA-C Work Phone: [facility] 05-11-2022 12:39-0400 Body temperature 98.29 [degF] Willi Church APRN.PROMOTIONS REPRESENTATIVE Work Phone: [facility] 05-11-2022 12:39-0400 Body weight 81.01 kg Willi Church APRN.PROMOTIONS REPRESENTATIVE Work Phone: [facility] 05-11-2022 12:39-0400 Diastolic blood pressure 68 mm[Hg] Willi Church APRN.PROMOTIONS REPRESENTATIVE Work Phone: [facility] 05-11-2022 12:39-0400 Heart rate 70 /min Willi Church APRN.PROMOTIONS REPRESENTATIVE Work Phone: [facility] 05-11-2022 12:39-0400 Respiratory rate 16 /min Willi Church APRN.PROMOTIONS REPRESENTATIVE Work Phone: [facility] 05-11-2022 12:39-0400 SaO2% (BldA) [Mass fraction] 96 % Willi Church APRN.PROMOTIONS REPRESENTATIVE Work Phone: [facility] 05-11-2022 12:39-0400 Systolic blood pressure 122 mm[Hg] Willi Church APRN.PROMOTIONS REPRESENTATIVE Work Phone: [facility] 04-26-2022 08:38-0400 Body weight 79.83 kg Krunal Barragan MD Work Phone: [facility] 04-26-2022 08:38-0400 Diastolic blood pressure 70 mm[Hg] Krunal Barragan MD Work Phone: [facility] 04-26-2022 08:38-0400 Heart rate 66 /min Krunal Barragan MD Work Phone: [facility] 04-26-2022 08:38-0400 Systolic blood pressure 110 mm[Hg] Krunal Barragan MD Work Phone: [facility] 03-05-2022 13:12-0400 Body weight 78.47 kg NA Mckinley PA-C Work Phone: [facility] 03-05-2022 13:12-0400 Diastolic blood pressure 72 mm[Hg] NA Mckinley PA-C Work Phone: [facility] 03-05-2022 13:12-0400 Heart rate 61 /min NA Mckinley PA-C Work Phone: [facility] 03-05-2022 13:12-0400 Respiratory rate 16 /min NA Mckinley PA-C Work Phone: [facility] 03-05-2022 13:12-0400 SaO2% (BldA) [Mass fraction] 95 % NA Mckinley PA-C Work Phone: [facility] 03-05-2022 13:12-0400 Systolic blood pressure 120 mm[Hg] NA Elías PA-C Work Phone: [facility] Encounters Encounter Date Encounter Type Care Provider Facility Start: 01-27-2025 End: 01-27-2025 Orders Only Tiki CONNOR-C Work Phone: [facility] Comment on above: Cerebral hemorrhage (HCC) (Primary Dx) Start: 01-25-2025 End: 01-31-2025 Evaluation and management of inpatient LETICIA A SUPPAN Facility:[facility] Start: 01-25-2025 End: 01-25-2025 Emergency department patient visit [facility] Facility:[facility] Start: 01-25-2025 ambulatory LETICIA A SUPPAN Fac ility:[facility] Start: 01-25-2025 End: 01-25-2025 Subsequent hospital visit by physician [facility] ([facility]) Work Phone: Cat Scan Comment on above: Injury of head, subs equent encounter [S09.90XD] Start: 01-24-2025 End: 01-24-2025 Telephone encounter Leticia A Suppan [employer]UR[employer] PROFESSION[employer].PROMOTIONS REPRESENTATIVE Work Phone: [facility] Comment on above: Insurance Authorizat ion Start: 01-24-2025 End: 01-24-2025 ambulatory LETICIA A SUPPAN Facility:[facility] Start: 01-24-2025 End: 01-24-2025 Office outpatient visit 15 minutes Leticia A Suppan [employer] PROFESSION[employer].PROMOTIONS REPRESENTATIVE Work Phone: [facility] Comment on above: Injury of head, subs equent encounter (Primary Dx); 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 Jose Juan Christine MD Work Phone: -Emergency Department Work Phone: Start: 01-08-2025 End: 01-09-2025 Follow-up encounter Viri Beasley Work Phone: Podiatry Start: 01-07-2025 End: 01-07-2025 ambulatory [facility] Facility:[facility] Start: 12-20-2024 End: 12-20-2024 ambulatory [facility] Facility:[facility] Start: 11-06-2024 End: 11-06-2024 Office outpatient visit 25 minutes Alexus Naik [employer] PROFESSION[employer].PROMOTIONS REPRESENTATIVE Work Phone: Psychiatry Comment on above: Major neurocognitive disorder (HCC) (Primary Dx); Mood disorder (HCC); Generalized anxiety disorder; Visual hallucinations; Restlessness and agitation; Delusions (HCC); Encounter for long-term (current) use of medications; History of trauma Start: 11-06-2024 End: 11-06-2024 ambulatory ALEXUS NAIK Facility:[facility] Start: 10-29-2024 End: 10-29-2024 ambulatory LETICIA A SUPPAN Facility:[facility] Start: 10-29-2024 End: 10-29-2024 Office outpatient visit 15 minutes Leticia A Suppan [employer] PROFESSION[employer].PROMOTIONS REPRESENTATIVE Work Phone: [facility] Comment on above: Acute maxillary sinu sitis, recurrence not specified (Primary Dx); Mixed hyperlipidemia; 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); COPD, mild (HCC); Dementia with behavioral disturbance (HCC) Start: 10-24-2024 End: 10-24-2024 ambulatory LETICIA A SUPPAN Facility:[facility] Start: 10-24-2024 End: 10-24-2024 Office outpatient visit 25 minutes Erum Bennett PA-C Work Phone: [facility] Comment on above: Acute URI (Primary D x) Start: 09-26-2024 End: 09-27-2024 Refill Leticia A Suppan [employer]ESSION[employer].PROMOTIONS REPRESENTATIVE Work Phone: [facility] Comment on above: Refill Request Start: 09-15-2024 End: 09-17-2024 Refill Shawanda Hale [employer]ESSION[employer].PROMOTIONS REPRESENTATIVE Work Phone: Neurology Comment on above: Refill Request Start: 09-14-2024 End: 09-14-2024 ambulatory LETICIA A SUPPAN Facility:[facility] Start: 09-14-2024 End: 09-14-2024 Office outpatient visit 25 minutes Gloria Morrow MD Work Phone: [facility] Comment on above: Abscess of groin, ri ght (Primary Dx) Start: 09-11-2024 End: 09-11-2024 Refill Alexus Naik APRN.PROMOTIONS REPRESENTATIVE Work Phone: [facility] Comment on above: Refill Request Start: 09-10-2024 End: 09-10-2024 Office outpatient visit 15 minutes Leticia Harding [employer] PROFESSION[employer].PROMOTIONS REPRESENTATIVE Work Phone: [facility] Comment on above: Pneumonia of right l ower lobe due to infectious organism (Primary Dx) Start: 09-10-2024 End: 09-10-2024 ambulatory LETICIA A SUPPAN Facility:[facility] Start: 09-05-2024 End: 09-05-2024 Orders Only Luis Eduardo Rico PA-C Work Phone: Orthopaedics Comment on above: Pain in left hip (Pr imary Dx) Trochanteric bursiti s of left hip (Primary Dx); It band syndrome, left Pain in left hip [M2 5.552] Start: 08-30-2024 End: 08-30-2024 ambulatory LETICIA A SUPPAN Facility:[facility] Start: 08-30-2024 End: 08-30-2024 Office outpatient visit 15 minutes Leticia Harding [employer] PROFESSION[employer].PROMOTIONS REPRESENTATIVE Work Phone: [facility] Comment on above: Pneumonia of right l ower lobe due to infectious organism (Primary Dx) Start: 08-30-2024 End: 08-30-2024 Telephone encounter Leticia Harding APRN.PROMOTIONS REPRESENTATIVE Work Phone: [facility] Comment on above: Patient Update; Appo intment Start: 08-28-2024 End: 08-28-2024 Patient encounter procedure Viri Beasley Work Phone: Podiatry Comment on above: Acquired hallux valg us, unspecified laterality (Primary Dx); Hallux rigidus of left foot; Hammer toe of left foot; Skew foot deformity, unspecified laterality Start: 08-28-2024 End: 08-28-2024 ambulatory VIRI BEASLEY Facility:[facility] Start: 08-28-2024 End: 08-28-2024 Subsequent hospital visit by physician [facility] Work Phone: Radiology Comment on above: Bilateral foot pain [M79.671, M79.672] Start: 08-19-2024 End: 08-20-2024 Refill Shawanda Hale APRN.PROMOTIONS REPRESENTATIVE Work Phone: Neurology Comment on above: Refill Request Start: 08-02-2024 End: 08-03-2024 OT/PT/Speech Visit Genoveva Olson CCC-[employer] Work Phone: [facility] Comment on above: Neurocognitive disor maribell (Primary Dx); Cognitive communication deficit Start: 07-18-2024 End: 07-18-2024 OT/PT/Speech Visit Genoveva Olson CCC-[employer]AF[employer] Work Phone: [facility] Comment on above: Cognitive communicat ion deficit (Primary Dx); Neurocognitive disorder; Visual hallucinations; Delusions (HCC); Mood disorder (HCC); Generalized anxiety disorder Start: 07-10-2024 End: 07-16-2024 Office outpatient visit 25 minutes Alexus Naik APRN.PROMOTIONS REPRESENTATIVE Work Phone: Psychiatry Comment on above: Neurocognitive disor maribell (Primary Dx); Delusions (HCC); Mood disorder (HCC); Visual hallucinations; Generalized anxiety disorder; Encounter for long-term (current) use of medications Start: 07-10-2024 End: 07-10-2024 ambulatory ALEXUS NAIK Facility:[facility] Start: 06-18-2024 End: 06-18-2024 Emergency department patient visit No Primary Care Physician Facility:[facility] Start: 06-18-2024 End: 06-18-2024 ambulatory ERUM MCKINLEY Facility:[facility] Start: 06-18-2024 End: 06-18-2024 Patient encounter procedure Chino CONNOR Work Phone: [facility] Comment on above: Procedure not chi d out (Primary Dx) Start: 05-24-2024 End: 05-24-2024 ambulatory SHAWANDA HALE Facility:[facility] Start: 05-24-2024 End: 05-24-2024 Office outpatient visit 40 minutes Shawanda Hale [employer]ESSION[employer].PROMOTIONS REPRESENTATIVE Work Phone: Neurology Comment on above: Major neurocognitive disorder (HCC) (Primary Dx) Start: 05-21-2024 End: 05-21-2024 ambulatory ERUM JIMMIETHADDEUS MCKINLEY Facility:[facility] Start: 05-21-2024 End: 05-21-2024 Patient encounter procedure Krunal Barragan MD Work Phone: Cardiology Comment on above: 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) (Primary Dx); SVT (supraventricular tachycardia) (HCC); Palpitations; Mixed hyperlipidemia Start: 05-01-2024 End: 05-01-2024 Office outpatient visit 25 minutes Leticia Harding [employer]ESSION[employer].PROMOTIONS REPRESENTATIVE Work Phone: [facility] Comment on above: Mixed hyperlipidemia (Primary Dx); 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); COPD, mild (HCC); Gastroesophageal reflux disease without esophagitis; Palpitations; Bacterial pneumonia; Anxiety with depression Start: 05-01-2024 End: 05-01-2024 ambulatory ERUM MCKINLEY Facility:[facility] Start: 04-28-2024 End: 04-28-2024 Telephone encounter Chino CONNOR Work Phone: [facility] Comment on above: Results Start: 04-28-2024 End: 04-28-2024 ambulatory ERUM MCKINLEY Facility:[facility] Start: 04-28-2024 End: 04-28-2024 Subsequent hospital visit by physician [facility] Work Phone: Radiology Comment on above: Acute cough [R05.1] Start: 04-27-2024 End: 04-27-2024 Office outpatient visit 25 minutes Arturo Lema APRN.PROMOTIONS REPRESENTATIVE Work Phone: [facility] Comment on above: Acute cough (Primary Dx); URI, acute; Community acquired pneumonia of left lower lobe of lung Start: 04-27-2024 End: 04-27-2024 ambulatory ERUM MCKINLEY Facility:[facility] Start: 04-14-2024 End: 04-14-2024 Subsequent hospital visit by physician [facility] Work Phone: Radiology Comment on above: Acute cough [R05.1] Start: 04-14-2024 End: 04-14-2024 ambulatory ERUM MCKINLEY Facility:[facility] Start: 04-14-2024 End: 04-14-2024 Patient encounter procedure Willi Church APRN.PROMOTIONS REPRESENTATIVE Work Phone: [facility] Comment on above: Acute cough (Primary Dx) Start: 04-09-2024 Telephone encounter Krunal Barragan MD Work Phone: Cardiology Comment on above: Patient Update Start: 03-27-2024 Telephone encounter Krunal Barragan MD Work Phone: Cardiology Comment on above: Patient Update Start: 03-14-2024 End: 03-14-2024 ambulatory Velasquez Richardson PT Work Phone: [facility] Comment on above: Thoracic spine pain (Primary Dx) Start: 03-06-2024 End: 03-06-2024 ambulatory Lore Kashuba CHIEF RELAY TESTER Work Phone: [facility] Comment on above: Thoracic spine pain (Primary Dx) Start: 02-28-2024 End: 02-28-2024 ambulatory Lore Kashuba CHIEF RELAY TESTER Work Phone: [facility] Comment on above: Thoracic spine pain (Primary Dx) Start: 02-24-2024 End: 02-24-2024 ambulatory SHAWANDA HALE Facility:[facility] Start: 02-24-2024 End: 02-24-2024 Office outpatient visit 25 minutes Peter E Swauger [employer].PROMOTIONS REPRESENTATIVE Work Phone: Neurology Comment on above: Major neurocognitive disorder (HCC); Visual hallucinations; Restlessness and agitation; Delusions (HCC) Start: 02-21-2024 End: 02-21-2024 ambulatory Lore Schreiber CHIEF RELAY TESTER Work Phone: [facility] Comment on above: Thoracic spine pain (Primary Dx) Start: 02-14-2024 End: 02-14-2024 ambulatory Velasquez Richardson PT Work Phone: [facility] Comment on above: Thoracic spine pain (Primary Dx) Start: 02-07-2024 Telephone encounter Shawanda sierra APRN.PROMOTIONS REPRESENTATIVE Work Phone: Neurology Comment on above: Results Start: 02-07-2024 End: 02-07-2024 ambulatory RUSSELL ABEL Facility:[facility] Start: 02-07-2024 End: 02-07-2024 Patient encounter procedure Russell Prasad PA-C Work Phone: Urology Comment on above: BPH with obstruction /lower urinary tract symptoms (Primary Dx); Nocturia; Urinary urgency Start: 02-06-2024 End: 02-06-2024 Social Work Dorothy GAUTHIER Work Phone: Neurology Comment on above: Major neurocognitive disorder (HCC) (Primary Dx) Start: 02-03-2024 Telephone encounter Dorothy GAUTHIER Work Phone: Neurology Comment on above: Patient Question Start: 02-01-2024 Josselin Weeks on PA-C Work Phone: [facility] Comment on above: Refill Request Start: 01-31-2024 End: 01-31-2024 Subsequent [facility]les Work Phone: Radiology Comment on above: Thoracic spine pain [M54.6] Start: 01-31-2024 End: 01-31-2024 ambulatory LORI CHAUHAN Facility:[facility] Start: 01-31-2024 End: 01-31-2024 Patient encounter procedure Lori Chauhan MD Work Phone: [facility] Comment on above: Asthma with COPD wit h exacerbation (HCC) (HCC) (Primary Dx); Thoracic spine pain Start: 01-28-2024 End: 01-28-2024 Emergency department patient visit Elif CONNOR Facility:[facility] Start: 01-27-2024 End: 01-27-2024 Office outpatient visit 40 minutes Shawanda Hale APRN.CNP Work Phone: Neurology Comment on above: Major neurocognitive disorder (HCC) (Primary Dx); Visual hallucinations; Restlessness and agitation; Delusions (HCC) Start: 01-20-2024 ambulatory SHAWANDA HALE Facilit y:[facility] Start: 01-20-2024 End: 01-20-2024 Subsequent hospital visit by physician Mri [facility] (I-Stat/1.5t) [facility] Comment on above: Major neurocognitive disorder (HCC) [F03.90] Start: 01-16-2024 Refill Alexus dietz APRN.PROMOTIONS REPRESENTATIVE Work Phone: Psychiatry Comment on above: Refill Request Start: 01-12-2024 Telephone encounter Shawanda sierra APRN.CNP Work Phone: Neurology Start: 12-27-2023 End: 12-27-2023 Patient encounter procedure Alexus Naik APRN.CNP Work Phone: Psychiatry Comment on above: Neurocognitive disor maribell (Primary Dx); History of trauma; Delusions (HCC); Visual hallucinations; Mood disorder (HCC); Anxiety Start: 12-19-2023 End: 12-19-2023 Office outpatient visit 40 minutes Shawanda Hale APRN.CNP Work Phone: Neurology Comment on above: Major neurocognitive disorder (HCC) (Primary Dx); Visual hallucinations; History of trauma; Restlessness and agitation; Delusions (HCC); History of alcohol abuse Start: 12-15-2023 Refill Alexus dietz APRN.CNP Work Phone: Psychiatry Comment on above: Med Change Request Start: 11-22-2023 End: 11-22-2023 Patient encounter procedure Alexus Naik APRN.CNP Work Phone: Psychiatry Comment on above: APPOINTMENT CANCELLE D (Primary Dx) Start: 11-03-2023 Refill Elif winter PA-C Work Phone: [facility] Comment on above: Refill Request Start: 10-25-2023 End: 10-25-2023 Patient encounter procedure Alexus Naik APRN.PROMOTIONS REPRESENTATIVE Work Phone: Psychiatry Comment on above: Mood disorder (HCC) (Primary Dx); Mixed obsessional thoughts and acts; Moderate dementia with other behavioral disturbance, unspecified dementia type (HCC) Start: 10-16-2023 Refill Alexus dietz [employer].PROMOTIONS REPRESENTATIVE Work Phone: Psychiatry Comment on above: Med Change Request Start: 10-06-2023 Telephone encounter Lori Chauhan MD Work Phone: [facility] Comment on above: Results Start: 10-05-2023 End: 10-05-2023 Patient encounter procedure Lori Chauhan MD Work Phone: [facility] Comment on above: Nocturia (Primary Dx ); Urinary frequency; Elevated PSA; Microscopic hematuria; Screening for prostate cancer; 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); Mixed hyperlipidemia Start: 10-05-2023 Telephone encounter Chino CONNOR Work Phone: [facility] Comment on above: Results Start: 10-03-2023 End: 10-03-2023 Patient encounter procedure Geovany Stewart APRN.PROMOTIONS REPRESENTATIVE Work Phone: [facility] Comment on above: Burning with urinati on (Primary Dx) Start: 10-03-2023 Telephone encounter Elif Mckinley PA-C Work Phone: Internal Medicine [place] Start: 08-09-2023 Telephone encounter Aishwarya griffith [facility] Work Phone: Psychology Comment on above: consult Start: 08-02-2023 [facility]phone encounter [facility] Work Phone: Psychology Comment on above: bh consult Start: 08-02-2023 End: 08-02-2023 Patient encounter procedure Elif Weeksaugust CONNOR Work Phone: [facility] [place] Comment on above: Visual hallucination s (Primary Dx); Mild dementia with agitation, unspecified dementia type (HCC) Start: 07-28-2023 Telephone encounter Elif Weeksaugust CONNOR Work Phone: [facility] [place] Comment on above: Patient Update Start: 07-11-2023 End: 07-11-2023 Patient encounter procedure Gloria Morrow MD Work Phone: [facility] Comment on above: Ulcer of buttock (HC C) (Primary Dx) Start: 06-14-2023 End: 06-14-2023 Patient encounter procedure Elif Weeksaugust CONNOR Work Phone: [facility] Comment on above: 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) (Primary Dx); SVT (supraventricular tachycardia); Mixed hyperlipidemia; COPD, mild (HCC); Generalized anxiety disorder; Primary insomnia; Obsessive-compulsive disorder, unspecified type; Major depressive disorder, recurrent, mild (HCC); Visual hallucinations; Cognitive impairment, mild, so stated; History of marijuana use; Alcohol dependence, daily use ([facility]); Gastroesophageal reflux disease, unspecified whether esophagitis present; S/P reverse total shoulder arthroplasty, left; BPH with obstruction/lower urinary tract symptoms; Erectile dysfunction, unspecified erectile dysfunction type Start: 06-13-2023 Telephone encounter Elif Weeksaugust CONNOR Work Phone: [facility] [place] Comment on above: Results Start: 06-06-2023 End: 06-06-2023 Patient encounter procedure Viri Beasley Work Phone: Podiatry Comment on above: Posterior tibial ten don dysfunction (Primary Dx); Skew foot deformity, unspecified laterality; Acquired hallux valgus, unspecified laterality Start: 05-28-2023 End: 05-28-2023 ambulatory Immunization [facility] Nurse [place] Work Phone: [facility] [place] Start: 05-23-2023 End: 05-23-2023 Patient encounter procedure Krunal Barragan MD Work Phone: Cardiology Comment on above: 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) (Primary Dx); Mixed hyperlipidemia; Palpitations; SVT (supraventricular tachycardia) (HCC) Start: 05-19-2023 Telephone encounter Lori Muro MD Work Phone: Neurology Comment on above: Patient Question Eye doctor appt Start: 05-13-2023 Telephone encounter Lori Muro MD Work Phone: Neurology Comment on above: Results Start: 05-06-2023 Telephone encounter Lori Muro MD Work Phone: Neurology Comment on above: Results Start: 05-04-2023 End: 05-04-2023 Nursing evaluation of patient and report Nurse Card Josiane Pop Work Phone: Cardiology Comment on above: Orthostatic hypotens ion; Lightheadedness; Palpitation Start: 05-04-2023 End: 05-04-2023 Patient encounter procedure Lori Muro MD Work Phone: Neurology Comment on above: Visual hallucination s (Primary Dx); Habitual alcohol use; Cognitive impairment; Orthostatic hypotension; Lightheadedness; Palpitation Start: 04-11-2023 Telephone encounter Fernando Delgado MD Work Phone: Orthopaedics Comment on above: Orders Start: 04-01-2023 End: 04-01-2023 Patient encounter procedure Fernando Delgado MD Work Phone: Orthopedics Comment on above: S/P reverse total sh oulder arthroplasty, left (Primary Dx) Start: 04-01-2023 End: 04-01-2023 Subsequent hospital visit by physician Radio [facility] Josiane Robles Work Phone: Radiology Comment on above: Chronic left shoulde r pain [M25.512, G89.29] Start: 03-14-2023 End: 03-14-2023 Patient encounter procedure Elif Mckinley PA-C Work Phone: [facility] Comment on above: Status post reverse total replacement of left shoulder (Primary Dx); Obsessive-compulsive disorder, unspecified type; Minor depression; Generalized anxiety disorder; Primary insomnia; Visual hallucinations; Cognitive impairment, mild, so stated; History of marijuana use; Habitual alcohol use; 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); SVT (supraventricular tachycardia) (HCC); Palpitations; Mixed hyperlipidemia; COPD, mild (HCC); 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); Major depressive disorder, recurrent, mild (HCC) Start: 03-11-2023 Orders Only Fernando Delgado MD Work Phone: Orthopedics Comment on above: Chronic left shoulde r pain (Primary Dx) Start: 03-08-2023 Telephone encounter Elif Mckinley PA-C Work Phone: [facility] Comment on above: Patient Update Start: 03-02-2023 End: 03-02-2023 ambulatory Donovan Gallo PT [facility] Comment on above: S/P reverse total sh oulder arthroplasty, left (Primary Dx) Start: 02-28-2023 End: 02-28-2023 ambulatory Lore Schreiber CHIEF RELAY TESTER Work Phone: [facility] Comment on above: S/P reverse total sh oulder arthroplasty, left (Primary Dx) Start: 02-24-2023 Telephone encounter Elif Mckinley PA-C Work Phone: [facility] Comment on above: Return provider's ca ll Start: 02-16-2023 End: 02-16-2023 ambulatory Donovan Gallo PT [facility] Comment on above: S/P reverse total sh oulder arthroplasty, left (Primary Dx) Start: 02-14-2023 End: 02-14-2023 ambulatory Lore Kasyonathanba CHIEF RELAY TESTER Work Phone: [facility] Comment on above: S/P reverse total sh oulder arthroplasty, left (Primary Dx) Start: 02-11-2023 End: 02-11-2023 Subsequent hospital visit by physician Radio [facility] Josiane Robles Work Phone: Radiology Comment on above: Chronic left shoulde r pain [M25.512, G89.29] Start: 02-09-2023 End: 02-09-2023 ambulatory Doonvan Gallo [facility] Comment on above: S/P reverse total sh oulder arthroplasty, left (Primary Dx) Start: 02-01-2023 Orders Only Fernando Delgado MD Work Phone: Orthopedics Comment on above: Chronic left shoulde r pain (Primary Dx) Start: 01-27-2023 End: 01-27-2023 ambulatory Donovan Gallo PT [facility] Comment on above: S/P reverse total sh oulder arthroplasty, left (Primary Dx) Start: 12-31-2022 End: 12-31-2022 Patient encounter procedure Fernando Delgado MD Work Phone: Orthopedics Comment on above: S/P reverse total sh oulder arthroplasty, left (Primary Dx) Start: 12-31-2022 End: 12-31-2022 Subsequent hospital visit by physician Radio [facility] Josiane Robles Work Phone: Radiology Comment on above: Chronic left shoulde r pain [M25.512, G89.29] Start: 12-13-2022 End: 12-13-[address] 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 [facility] Work Phone: Pre Anesthesia Start: 11-29-2022 Telephone encounter Elif Mckinley PA-C Work Phone: [facility] Comment on above: Results Start: 11-12-2022 Telephone encounter Fernando Delgado MD Work Phone: Orthopaedics Comment on above: Patient Update (Card iology risk assessment for surgery/) Orders (Post-op phys ical therapy orders) Appointment Start: 10-27-2022 Refill Elif winter PA-C Work Phone: [facility] [place] Comment on above: Refill Request Start: 10-25-2022 End: 10-25-2022 Patient encounter procedure Elif Mckinley PA-C Work Phone: [facility] [place] Comment on above: Obsessive-compulsive disorder, unspecified type (Primary Dx); Generalized anxiety disorder; Visual hallucinations; Cognitive impairment, mild, so stated; Dizziness 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) (Primary Dx); Mixed hyperlipidemia; SVT (supraventricular tachycardia) (HCC); Palpitations Start: 10-22-2022 Refill Joleen gallardo APRN.CNP Work Phone: Cardiology Comment on above: Refill Request Start: 10-22-2022 Telephone encounter Elif Mckinley PA-C Work Phone: [facility] [place] Comment on above: Opened In Error Start: 10-21-2022 Orders Only Fernando Delgado MD Work Phone: Orthopaedics Comment on above: Complete tear of lef t rotator cuff, unspecified whether traumatic (Primary Dx); Failure of rotator cuff repair; Acute pain of left shoulder Start: 10-15-2022 End: 10-15-2022 Patient encounter procedure Fernando Delgado MD Work Phone: Orthopedics Comment on above: Complete tear of lef t rotator cuff, unspecified whether traumatic (Primary Dx); Failure of rotator cuff repair Start: 09-30-2022 Telephone encounter [facility]C [facility] Comment [facility]: Results ([facility]) Start: 09-30-2022 End: 09-30-2022 Subsequent hospital visit by physician Mri [facility] (I-Stat/1.5t) Work Phone: Radiology Comment on above: Visual hallucination s [R44.1] Start: 09-29-2022 Telephone encounter Elif Jimmie Mckinley PA-C Work Phone: [facility] Comment on above: Medication Problem Start: 09-28-2022 Telephone encounter Ambar wells [employer] Work Phone: Adult Psychology Comment on above: Behavioral Health So cial Work Medication Problem Start: 09-28-2022 End: 09-28-2022 Patient encounter procedure Elif Jimmie Mckinley PA-C Work Phone: [facility] [place] Comment on above: Generalized anxiety disorder (Primary Dx); Test anxiety; Obsessive-compulsive disorder, unspecified type; Visual hallucinations Start: 09-24-2022 Telephone encounter Sharan moses MD Work Phone: Orthopaedics Comment on above: Appointment Start: 09-23-2022 End: 09-23-2022 Patient encounter procedure Sharan Barber MD Work Phone: Orthopaedics Comment on above: Nontraumatic tear of left rotator cuff, unspecified tear extent (Primary Dx); Acute pain of left shoulder; Other secondary osteoarthritis of left shoulder Start: 09-22-2022 Telephone encounter Elif Jimmie Mckinley PA-C Work Phone: [facility] [place] Comment on above: Patient Question Start: 09-21-2022 End: 09-21-2022 Subsequent hospital visit by physician Manjinder [facility] [place] Work Phone: Radiology Comment on above: Acute pain of left s houlder [M25.512] Start: 09-21-2022 End: 09-21-2022 Office outpatient visit 25 minutes Marah Valdovinos APRN.CNP Work Phone: [facility] [place] Comment on above: Acute pain of left s houlder (Primary Dx) Start: 09-06-2022 End: 09-06-2022 Patient encounter procedure Elif Jimmie Mckinley PA-C Work Phone: [facility] [place] Comment on above: Screening for prosta te cancer (Primary Dx); Erectile dysfunction, unspecified erectile dysfunction type; Visual hallucinations; Cognitive impairment, mild, so stated; Test anxiety; Generalized anxiety disorder; Obsessive-compulsive disorder, unspecified type Start: 08-02-2022 Telephone encounter Elif Mckinley PA-C Work Phone: [facility] Comment on above: medication not worki ng Start: 07-08-2022 Telephone encounter Elif [facility]ckinley PA-C [facility] Comment on above: Patient Update Start: 07-02-2022 End: 07-02-2022 ambulatory [facility] Nurse [place] Work Phone: [facility] [place] Start: 06-23-2022 End: 06-23-2022 ambulatory Mi Nurse Work Phone: [facility] [place] Start: 06-07-2022 End: 06-07-2022 Patient encounter procedure Elif Mckinley PA-C Work Phone: [facility] Comment on above: Generalized anxiety disorder (Primary Dx); Minor depression; Obsessive-compulsive disorder, unspecified type; BPH with obstruction/lower urinary tract symptoms; Primary insomnia; SVT (supraventricular tachycardia) (HCC); Mixed hyperlipidemia; COPD, mild (HCC); History of marijuana use; Daily consumption of alcohol; Hyperglycemia Start: 05-12-2022 Telephone encounter Willi Church APRN.PROMOTIONS REPRESENTATIVE Work Phone: [facility] Comment on above: Results Start: 05-11-2022 End: 05-11-2022 Patient encounter procedure Willi Church APRN.PROMOTIONS REPRESENTATIVE Work Phone: [facility] Comment on above: COVID (Primary Dx) Start: 04-29-2022 Refill Elif winter PA-C Work Phone: [facility] Comment on above: Refill Request Start: 04-26-2022 End: 04-26-2022 Patient encounter procedure rKunal Barragan MD Work Phone: Cardiology Comment on above: 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) (Primary Dx); SVT (supraventricular tachycardia) (HCC); Mixed hyperlipidemia; Screening for ischemic heart disease; Palpitations Start: 03-05-2022 End: 03-05-2022 Patient encounter procedure Elif Mckinley PA-C Work Phone: [facility] Comment on above: 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) (Primary Dx); SVT (supraventricular tachycardia) (HCC); Hyperlipidemia, unspecified hyperlipidemia type; Obsessive-compulsive disorder, unspecified type; MARTELL (generalized anxiety disorder); Hallucination, visual; 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); BPH with obstruction/lower urinary tract symptoms; History of marijuana use; Chronic vertigo Start: 02-18-2022 End: 02-18-2022 Nursing evaluation of patient and report Mi Nurse Work Phone: [facility] Comment on above: Need for vaccination (Primary Dx) Start: 01-05-2022 Refill Krunal feldman MD Work Phone: Cardiology Comment on above: Refill Request Start: 01-13-2021 End: 01-13-2021 Subsequent hospital visit by physician Xr [facility] Work Phone: Radiology Comment on above: Swelling of joint of left wrist [M25.432] Start: 08-20-2020 End: 08-20-2020 Subsequent hospital visit by physician [facility] Work Phone: Radiology Comment on above: Abnormal chest x-ray [R93.89] Start: 08-11-2020 End: 08-11-2020 Subsequent hospital visit by physician Xr [facility] Work Phone: Radiology Comment on above: Cough [R05] Start: 03-10-2017 Patient encounter status Krunal Barragan MD Work Phone: [facility] Work Phone: Procedures Date Procedure Procedure Detail Performing Clinician Start: 01-25-2025 Antibody screen ERUM NICK Comment on above: Order Comment: Speci men Type: BLOOD SPECIMENOrdering Facility: [facility] Address: [address] [place] [address] Performed By: #### T SCR ####[facility] BANKCLIA [id number] [place] [address] [place] Start: 01-25-2025 Ct head/brain w/o co ntrast material Leticia Harding [employer].PROMOTIONS REPRESENTATIVE Work Phone: Start: 09-05-2024 Radex hip unilateral with pelvis 2-3 views Luis Eduardo Rico PA-C Work Phone: Start: 04-28-2024 Radiologic exam ches t 2 views Arturo Lema [employer].PROMOTIONS REPRESENTATIVE Work Phone: Start: 04-27-2024 COVID & INFLUENZA A/ B & RSV PCR, ROUTINE Willi Church [employer].PROMOTIONS REPRESENTATIVE Work Phone: Start: 04-27-2024 Lipid 1996 panel - S sudha or Plasma Chino CONNOR Work Phone: Start: 04-14-2024 Radiologic exam ches t 2 views Willi Church [employer].[facility] Work Phone: Start: 02-07-2024 Urnls dip stick/tabl et rgnt auto w/o microscopy Russell Prasad PA-C Work Phone: Start: 01-20-2024 3d rendering w/interp&postproc diff work station Shawanda Hale [employer].[facility] Work Phone: Start: 01-20-2024 Mri brain brain stem w/o contrast material Shawanda Hale APRN.[facility] Work Phone: Start: 10-03-2023 Urnls dip stick/tabl et rgnt auto w/o microscopy Gloria Morrow MD Work Phone: Start: 06-10-2023 Lipid 1996 panel - S sudha or Plasma FAREED Mckinley PA-C Work Phone: Start: 05-28-2023 [employer] COVI D-19 VACCINE ( SEASON) AGE 12+ YR Erum Ruano MD Work Phone: Start: 05-28-2023 INFLUENZA VACCINE, P RSV FREE, AGE 65+ YR, HIGH DOSE, QUADRIVALENT (FLUZONE HIGH-DOSE) Erum Ruano MD Work Phone: Start: 04-01-2023 Radex shoulder compl ete minimum 2 views Ivana Harrison CONNOR-C Work Phone: Start: 02-11-2023 Radex shoulder compl ete minimum 2 views Ivana Harrison PA-C Work Phone: Start: 12-31-2022 Radex shoulder compl ete minimum 2 views Ivana Harrison PA-C Work Phone: Start: 12-13-2022 Antibody screen Pacc 1 Work Phone: Start: 11-26-2022 Lipid 1996 panel - S sudha or Plasma Lori Muro Jr., MD Work Phone: Start: 09-30-2022 Mri brain brain stem w/o w/contrast material Elif Jimmie Mckinley PA-C Work Phone: Start: 09-21-2022 Radex shoulder compl ete minimum 2 views Marah Valdovinos APRN.PROMOTIONS REPRESENTATIVE Work Phone: Start: 07-02-2022 [employer] COVI D-19 BIVALENT BOOSTER VACCINE, AGE 12+ YR Elif Jimmie Mckinley PA-C Work Phone: Start: 06-23-2022 INFLUENZA SEASONAL QUADRIVALENT HIGH DOSE AGE 65+ Marah Valdovinos [employer].PROMOTIONS REPRESENTATIVE Work Phone: Start: 02-18-2022 PFIZER-BIONTECH COVI D-19 VACCINE, AGE 12+ YR (MACK [employer]) Elif Jimmie Mckinley PA-C Work Phone: Start: 01-13-2021 Radex wrist complete minimum 3 views Elif Jimmie Mckinley PA-C Work Phone: Start: 08-20-2020 Radiologic exam ches t 2 views Marah Valdovinos SECURITY PROFESSIONALS.PROMOTIONS REPRESENTATIVE Work Phone: Start: 08-11-2020 Radiologic exam ches t 2 views Marah Valdovinos SECURITY PROFESSIONALS.PROMOTIONS REPRESENTATIVE Work Phone: Start: 04-22-2020 Selena walton MD Work Phone: Plan of Treatment Date Care Activity Detail Author Start: 01-16-2035 Urine microalbumin profile DTaP,Tdap,Td Vaccine (3 - Td or Tdap) [facility] Start: 04-27-2029 Lipid panel Lipid Screening [facility] Start: 06-10-2028 Lipid 1996 panel - Serum or Plasma Lipid Screening [facility] Start: 06-10-2028 Lipid panel Lipid Screening [facility] Start: 01-28-2028 Diabetes Screening Diabetes Screenin g [facility] Start: 01-27-2028 Diabetes Screening Diabetes Screenin g [facility] Start: 11-27-2027 Lipid 1996 panel - Serum or Plasma Lipid Screening [facility] Start: 11-27-2027 LIPID SCREEN LIPID SCREEN [facility] Start: 04-27-2027 Diabetes Screening Diabetes Screenin g [facility] Start: 11-17-2026 LIPID SCREEN LIPID SCREEN [facility] Start: 10-05-2026 Diabetes Screening Diabetes Screenin g [facility] Start: 06-10-2026 Diabetes Screening Diabetes Screenin g [facility] Start: 05-05-2026 Diabetes Screening Diabetes Screenin g [facility] Start: 01-24-2026 Annual PCP Team Warehouse Operator simran Disease Visit Annual PCP Team Chronic Disease Visit [facility] Start: 11-26-2025 DIABETES SCREEN DIABETES SCREEN [facility] Start: 10-29-2025 Abdominal aortic aneurysm screening Abdominal Aortic Aneurysm Screening [facility] Comment on above: Postponed from 10/19 (Declined at this time) Start: 10-29-2025 Annual PCP Team Warehouse Operator simran Disease Visit Annual PCP Team Chronic Disease Visit [facility] Start: 10-29-2025 Zoledronic acid therapy Alpha- 1 Antitrypsin Deficiency Screening [facility] Comment on above: Postponed from 10/19 (Declined at this time) Start: 09-10-2025 Annual PCP Team Warehouse Operator simran Disease Visit Annual PCP Team Chronic Disease Visit [facility] Start: 05-02-2025 End: 05-02-2025 Patient encounter procedure 05/02/2025 8:40 AM EDT Office Visit Family Medicine [facility] [address] [place] [address] Leticia Harding, SECURITY PROFESSIONALS.PROMOTIONS REPRESENTATIVE [address] [facility] [place] [id number] Medicare Wellness [facility] Comment on above: Medicare Wellness Start: 04-27-2025 Hepatitis B surface antibody level LDL Cholesterol [facility] Start: 04-23-2025 End: 04-23-2025 Patient encounter procedure 04/23/2025 8:30 AM EDT Office Visit Psychiatry [address] [place] [phone] Alexus Naik, SECURITY PROFESSIONALS.PROMOTIONS REPRESENTATIVE [address] [place] [address] Psychiatry Start: 04-22-2025 Colonoscopy COLONOSCOPY [facility] Start: 04-22-2025 COLORECTAL CANCER SCREENING COLORECTAL CANCER SCREENING [facility] Start: 04-22-2025 Screening for malign ant neoplasm of colon [facility] Start: 02-12-2025 End: 02-12-2025 Patient encounter procedure 02/12/2025 8:00 AM EDT Office Visit Urology [address] [place] [address] Russell Prasad PA-C [address] [place] [address] Yearly f/u Urology Comment on above: Yearly f/u Start: 01-30-2025 Annual PCP Team Warehouse Operator simran Disease Visit Annual PCP Team Chronic Disease Visit [facility] Start: 01-29-2025 End: 01-29-2025 Patient encounter procedure 01/29/2025 2:00 PM EDT Office Visit Vascular Surgery [address] [place] [address] Katerina Drake DO [address] [place] [address] Hammer toe of left foot [M20.42] Vascular Surgery Comment on above: Hammer toe of left f oot [M20.42] Start: 01-28-2025 End: 01-28-2025 Patient encounter procedure Cardiology Comment on above: 8 month follow up Start: 01-25-2025 End: 01-25-2025 Patient encounter procedure 01/25/2025 8:20 AM EDT Appointment Cat Scan [address] [place], [place] [id number] Injury of head, subsequent encounter [S09.90XD]; 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 [S09.90XA, R27.0] Cat Scan Comment on above: Injury of head, subs equent encounter [S09.90XD]; 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 [S09.90XA, R27.0] Start: 01-24-2025 End: 02-23-2026 CT Head WO contrast CT BRAIN WO IVCON Radiology STAT Injury of head, subsequent encounter 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 Expected: 01/24/2025, Expires: 02/23/2026 [facility] Work Phone: Comment on above: Expected: 01/24/2025 , Expires: 02/23/2026 Start: 01-24-2025 End: 04-25-2025 Urinalysis complete panel - Urine URINALYSIS (WITH MICROSCOPIC) WITH CULTURE IF INDICATED Lab Routine Injury of head, subsequent encounter 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 Start: 11-06-2024 End: 11-06-2024 Patient encounter procedure 11/06/2024 10:00 AM EDT Office Visit Psychiatry [address] [place] [address] Alexus Naik, SECURITY PROFESSIONALS.PROMOTIONS REPRESENTATIVE [address] [place] [address] 3 month follow up - Contacted patient due to provider being absent 10/02/2024 left advising of cancellation - Psychiatry Comment on above: 3 month follow up - Contacted patient due to provider being absent 10/02/2024 left advising of cancellation - TW Start: 10-31-2024 Annual PCP Team Warehouse Operator simran Disease Visit Annual PCP Team Chronic Disease Visit [facility] Start: 10-29-2024 End: 10-29-2024 Patient encounter procedure 10/29/2024 10:20 AM EST Office Visit Family [facility] [address] [place] [address] Leticia Harding APRN.PROMOTIONS REPRESENTATIVE [address] [place], [place] [address] 6 month follow-up [facility] Comment on above: 6 month follow-up Start: 10-05-2024 Annual PCP Team [facility] simran Disease Visit Annual PCP Team Chronic Disease Visit [facility] Start: 10-02-2024 End: 10-02-2024 Patient encounter procedure Psychiatry Comment on above: 3 month follow up Abscess of groin, ri ght [L02.214] Start: 09-28-2024 End: 09-28-2024 Patient encounter procedure 09/28/2024 11:15 AM EST Office Visit Podiatry [address] [place], [place] [phone] Viri Beasley [address] [address] Discuss surgery - toe amputation Podiatry Comment on above: Discuss surgery - to e amputation Start: 09-10-2024 End: 09-10-2024 Patient encounter procedure 09/10/2024 2:40 PM EST [facility] [address] [place] [address] Leticia Harding APRN.PROMOTIONS REPRESENTATIVE [address] [place], [place] [id number] pneumonia follow up [facility] Comment on above: pneumonia follow up Start: 08-29-2024 Advance Directive Discussion Advance Directive Discussion [facility] Start: 08-28-2024 End: 08-28-2024 OT/PT/Speech Visit [facility] Out[facility] Speech Therapy Comment on above: Neurocognitive disor maribell [R41.9] f/u bilateral foot p ain, left is worse Start: 08-14-2024 End: 08-14-2024 OT/PT/Speech Visit 08/14/2024 2:15 PM EST OT/PT/Speech Visit [facility] Therapy [address] [place] [phone] Genoveva Olson CCC-[employer] [address] [place] [address] Neurocognitive disorder [R41.9] [facility] Therapy Comment on above: Neurocognitive disor maribell [R41.9] Start: 08-02-2024 Annual PCP Team Warehouse Operator simran Disease Visit Annual PCP Team Chronic Disease Visit [facility] Start: 07-18-2024 End: 07-18-2024 OT/PT/Speech Visit 07/18/2024 12:15 PM EST OT/PT/Speech Visit [facility] Speech Therapy [address] [place] [phone] Genoveva Olson CCC[employer] [employer] [address] [place] [address] Neurocognitive disorder [R41.9] [facility] Speech Therapy Comment on above: Neurocognitive disor maribell [R41.9] Start: 07-10-2024 End: 07-10-2024 Patient encounter procedure 07/10/2024 2:30 PM EST Office Visit Psychiatry [address] [place] [address] Alexus Naik, SECURITY PROFESSIONALS.PROMOTIONS REPRESENTATIVE [address] [place] [address] follow up Psychiatry Comment on above: follow up Start: 06-14-2024 Annual PCP Team Warehouse Operator simran Disease Visit Annual PCP Team Chronic Disease Visit [facility] Start: 06-10-2024 Hepatitis B surface antibody level LDL Cholesterol [facility] Start: 05-24-2024 End: 05-24-2024 Patient encounter procedure 05/24/2024 10:45 AM EDT Office Visit Neurology [address] [place] [address] Shawanda Hale APRN.PROMOTIONS REPRESENTATIVE [address] [place] [address] Follow up Neurology Comment on above: Follow up Start: 05-21-2024 End: 05-21-2024 Patient encounter procedure 05/21/2024 8:40 AM EDT Office Visit Cardiology [address] [place] [phone] Krunal Barragan MD [address] [place] [address] 6 month follow up Cardiology Comment on above: 6 month follow up Start: 05-03-2024 End: 05-03-2024 Patient encounter procedure [facility] Comment on above: 6 month follow up Start: 05-01-2024 End: 05-01-2024 Patient encounter procedure 05/01/2024 11:20 AM EDT Office Visit Family Medicine [facility] [address] [place] [address] Leticia Harding APRN.PROMOTIONS REPRESENTATIVE [address] [place], [place] [address] express care follow up pneumonia [facility] Comment on above: express care follow up pneumonia Start: 04-29-2024 Covid-19 Vaccine ( season) Covid-19 Vaccine ( season) [facility] Start: 04-29-2024 Covid-19 Vaccine ( season) Covid-19 Vaccine ( season) [facility] Start: 04-29-2024 Influenza vaccination Influenza Vacc ine (#1) [facility] Start: 03-14-2024 ANNUAL PCP TEAM SLIP OPERATOR SIMRAN DISEASE VISIT ANNUAL PCP TEAM CHRONIC DISEASE VISIT [facility] Start: 03-14-2024 End: 03-14-2024 ambulatory 03/14/2024 7:45 AM EDT [facility] [address] [place], [place] [phone] Velasquez Richardson, PT [address] [place] [address] M54.6 (ICD-10-CM) - Thoracic spine pain [facility] Physical [facility] Comment on above: M54.6 (ICD-10-CM) - Thoracic spine pain Start: 03-06-2024 End: 03-06-2024 ambulatory 03/06/2024 8:45 AM EDT OT/PT/Speech Visit [facility] Therapy [address] [facility] [place] [address] Lore Schreiber, CHIEF RELAY TESTER [address] [facility] [place] [place] [address] M54.6 (ICD-10-CM) - Thoracic spine pain [facility] Comment on above: M54.6 (ICD-10-CM) - Thoracic spine pain Start: 02-28-2024 End: 02-28-2024 ambulatory 02/28/2024 11:45 AM EDT OT/PT/Speech Visit [facility] [address] [facility] [place] [place] [address] Lore Schreiber, CHIEF RELAY TESTER [address] [facility] [place] [address] M54.6 (ICD-10-CM) - Thoracic spine pain [facility] Comment on above: M54.6 (ICD-10-CM) - Thoracic spine pain Start: 02-24-2024 End: 02-24-2024 Patient encounter procedure 02/24/2024 10:45 AM EDT Office Visit Neurology [address] [address] Shawanda Hale APRN.PROMOTIONS REPRESENTATIVE [address] [place] [address] Neurology Start: 02-21-2024 End: 02-21-2024 ambulatory 02/21/2024 10:15 AM EDT OT/PT/Speech Visit [facility] [address] [place] [place] [address] Lore Schreiber, CHIEF RELAY TESTER [address] [place] [address] M54.6 (ICD-10-CM) - Thoracic spine pain [facility] Comment on above: M54.6 (ICD-10-CM) - Thoracic spine pain Start: 02-14-2024 End: 02-14-2024 ambulatory 02/14/2024 8:30 AM EDT OT/PT/Speech Visit [facility] [address] [place] [address] Velasquez Richardson, PT [address] [place] [address] Thoracic spine pain [M54 [facility] Comment on above: Thoracic spine pain [M54 Start: 02-07-2024 End: 02-07-2024 Patient encounter procedure 02/07/2024 9:30 AM EDT Office Visit Urology [address] [place] [address] Russell Prasad PA-C [address] [place] [address] 3 month follow up / LVM OF TIME CHANGE Urology Comment on above: 3 month follow up / LVM OF TIME CHANGE Start: 02-06-2024 End: 02-06-2024 Patient encounter procedure [facility] Occupational Therapy Comment on above: Advertising Writer's Eval Social Work Start: 01-27-2024 End: 01-27-2024 Patient encounter procedure 01/27/2024 10:45 AM EDT Office Visit Neurology [address] [address] Shawanda Hale APRN.PROMOTIONS REPRESENTATIVE [address] [place] [id number] Report Neurology Comment on above: Report Start: 01-20-2024 End: 01-20-2024 Patient encounter procedure 01/20/2024 7:00 AM EDT Appointment [facility] [address] [place] [address] MRI Brain W Quant WO IVCON [facility] Comment on above: MRI Brain W Quant WO IVCON Start: 12-27-2023 End: 12-27-2023 Patient encounter procedure 12/27/2023 8:30 AM EDT Office Visit Psychiatry [address] [facility] [place] [phone] Alexus Naik, SECURITY PROFESSIONALS.PROMOTIONS REPRESENTATIVE [address] [facility] [place] [phone] FOLLOW UP Psychiatry Comment on above: FOLLOW UP Start: 12-19-2023 End: 03-19-2024 VITAMIN B1 (THIAMINE), WHOLE BLOOD VITAMIN B1 (THIAMINE), WHOLE BLOOD Lab Routine Major neurocognitive disorder (HCC) History of alcohol abuse Expected: 12/19/2023, Expires: 03/19/2024 [facility] Work Phone: Comment on above: Expected: 12/19/2023 , Expires: 03/19/2024 Start: 12-14-2023 ANNUAL PCP TEAM SLIP OPERATOR SIMRAN DISEASE VISIT ANNUAL PCP TEAM CHRONIC DISEASE VISIT [facility] Start: 11-27-2023 Hepatitis B surface antibody level LDL CHOLESTEROL [facility] Start: 10-25-2023 ANNUAL PCP TEAM SLIP OPERATOR SIMRAN DISEASE VISIT ANNUAL PCP TEAM CHRONIC DISEASE VISIT [facility] Start: 10-05-2023 End: 01-04-2024 Basic metabolic 2000 panel - Serum or Plasma [facility] Work Phone: Comment on above: Expected: 10/05/2023 , Expires: 01/04/2024 Start: 10-05-2023 End: 01-04-2024 PSA/PROSTSPECAG SCRN [facility] Work Phone: Comment on above: Expected: 10/05/2023 , Expires: 01/04/2024 Start: 09-28-2023 ANNUAL PCP TEAM SLIP OPERATOR SIMRAN DISEASE VISIT ANNUAL PCP TEAM CHRONIC DISEASE VISIT [facility] Start: 09-27-2023 Covid-19 Vaccine (6 - Pfizer series) Covid-19 Vaccine (6 - Pfizer series) [facility] Start: 09-27-2023 Covid-19 Vaccine () Covid-19 Vaccine () [facility] Start: 09-21-2023 ANNUAL PCP TEAM SLIP OPERATOR SIMRAN DISEASE VISIT ANNUAL PCP TEAM CHRONIC DISEASE VISIT [facility] Start: 09-06-2023 ANNUAL PCP TEAM SLIP OPERATOR SIMRAN DISEASE VISIT ANNUAL PCP TEAM CHRONIC DISEASE VISIT [facility] Start: 08-29-2023 Advance Directive Discussion Advance Directive Discussion [facility] Start: 06-07-2023 ANNUAL PCP TEAM SLIP OPERATOR SIMRAN DISEASE VISIT ANNUAL PCP TEAM CHRONIC DISEASE VISIT [facility] Start: 05-23-2023 End: 07-23-2023 Comprehensive metabolic 2000 panel - Serum or Plasma COMP METABOLIC PANEL Lab Routine 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) Mixed hyperlipidemia Expected: 05/23/2023, Expires: 07/23/2023 [facility] Work Phone: Comment on above: Expected: 05/23/2023 , Expires: 07/23/2023 Start: 05-23-2023 End: 07-23-2023 Lipid 1996 panel - Serum or Plasma LIPID PANEL BASIC Lab Routine Mixed hyperlipidemia Expected: 05/23/2023, Expires: 07/23/2023 [facility] Work Phone: Comment on above: Expected: 05/23/2023 , Expires: 07/23/2023 Start: 05-10-2023 End: 07-10-2023 Cobalamin (Vitamin B12) [Mass/volume] in Serum or Plasma VITAMIN B12 BLOOD Lab Routine Low serum vitamin B12 Expected: 05/10/2023, Expires: 07/10/2023 [facility] Work Phone: Comment on above: Expected: 05/10/2023 , Expires: 07/10/2023 Start: 05-04-2023 End: 07-04-2023 Ammonia [Moles/volume] in Plasma AMMONIA BLD Lab Routine Visual hallucinations Habitual alcohol use Cognitive impairment Expected: 05/04/2023, Expires: 07/04/2023 [facility] Work Phone: Comment on above: Expected: 05/04/2023 , Expires: 07/04/2023 Start: 05-04-2023 End: 07-04-2023 Cobalamin (Vitamin B12) [Mass/volume] in Serum or Plasma VITAMIN B12 BLOOD Lab Routine Cognitive impairment Expected: 05/04/2023, Expires: 07/04/2023 [facility] Work Phone: Comment on above: Expected: 05/04/2023 , Expires: 07/04/2023 Start: 05-04-2023 End: 07-04-2023 Comprehensive metabolic 2000 panel - Serum or Plasma COMP METABOLIC PANEL Lab Routine Visual hallucinations Habitual alcohol use Cognitive impairment Expected: 05/04/2023, Expires: 07/04/2023 [facility] Work Phone: Comment on above: Expected: 05/04/2023 , Expires: 07/04/2023 Start: 05-04-2023 End: 07-04-2023 Folate [Mass/volume] in Serum or Plasma FOLATE SERUM Lab Routine Visual hallucinations Habitual alcohol use Cognitive impairment Orthostatic hypotension Lightheadedness Palpitation Expected: 05/04/2023, Expires: 07/04/2023 [facility] Work Phone: Comment on above: Expected: 05/04/2023 , Expires: 07/04/2023 Start: 04-29-2023 Influenza vaccination C [facility] Start: 03-05-2023 ANNUAL PCP TEAM SLIP OPERATOR SIMRAN DISEASE VISIT ANNUAL PCP TEAM CHRONIC DISEASE VISIT [facility] Start: 12-13-2022 End: 02-12-2023 CONFIRM BLOOD TYPE CONFIRM BLOOD TYPE Blood Bank Routine Pre-operative examination Expected: 12/13/2022, Expires: 02/12/2023 [facility] Work Phone: Comment on above: Expected: 12/13/2022 , Expires: 02/12/2023 Start: 12-06-2022 End: 02-05-2023 CBC W Auto Differential panel - Blood CBC + DIFF Lab Routine Generalized anxiety disorder Obsessive-compulsive disorder, unspecified type Expected: 12/06/2022, Expires: 02/05/2023 [facility] Work Phone: Comment on above: Expected: 12/06/2022 , Expires: 02/05/2023 Start: 12-06-2022 End: 02-05-2023 Comprehensive metabolic 2000 panel - Serum or Plasma COMP METABOLIC PANEL Lab Routine Generalized anxiety disorder Obsessive-compulsive disorder, unspecified type Expected: 12/06/2022, Expires: 02/05/2023 [facility] Work Phone: Comment on above: Expected: 12/06/2022 , Expires: 02/05/2023 Start: 12-06-2022 End: 02-05-2023 Hemoglobin A1c in Blood HGB A1C Lab Routine Hyperglycemia Expected: 12/06/2022, Expires: 02/05/2023 [facility] Work Phone: Comment on above: Expected: 12/06/2022 , Expires: 02/05/2023 Start: 12-05-2022 End: 02-04-2023 Basic metabolic 2000 panel - Serum or Plasma BASIC METABOLIC PNL Lab Routine Erectile dysfunction, unspecified erectile dysfunction type Expected: 12/05/2022, Expires: 02/04/2023 [facility] Work Phone: Comment on above: Expected: 12/05/2022 , Expires: 02/04/2023 Start: 12-05-2022 End: 02-04-2023 TESTOSTERONE, FREE AND TOTAL TESTOSTERONE, FREE AND TOTAL Lab Routine Erectile dysfunction, unspecified erectile dysfunction type Expected: 12/05/2022, Expires: 02/04/2023 [facility] Work Phone: Comment on above: Expected: 12/05/2022 , Expires: 02/04/2023 Start: 12-05-2022 End: 02-04-2023 Thyrotropin [Units/volume] in Serum or Plasma TSH BLD Lab Routine Erectile dysfunction, unspecified erectile dysfunction type Expected: 12/05/2022, Expires: 02/04/2023 [facility] Work Phone: Comment on above: Expected: 12/05/2022 , Expires: 02/04/2023 Start: 11-24-2022 ANNUAL PCP TEAM SLIP OPERATOR SIMRAN DISEASE VISIT ANNUAL PCP TEAM CHRONIC DISEASE VISIT [facility] Start: 11-17-2022 Hepatitis B surface antibody level LDL CHOLESTEROL [facility] Start: 10-30-2022 COVID-19 VACCINE (6 - Pfizer series) COVID-19 VACCINE (6 - Pfizer series) [facility] Start: 10-25-2022 End: 12-25-2022 Lipid 1996 panel - Serum or Plasma LIPID PANEL BASIC Lab Routine Mixed hyperlipidemia Expected: 10/25/2022, Expires: 12/25/2022 [facility] Work Phone: Comment on above: Expected: 10/25/2022 , Expires: 12/25/2022 Start: 10-09-2022 SHINGRIX VACCINE (2 of 3) SHINGRIX VACCINE (2 of 3) [facility] Comment on above: Postponed from 12/04 (Insurance Coverage) Start: 10-09-2022 Urine microalbumin profile DTAP,TDAP,TD (2 - Td or Tdap) [facility] Comment on above: Postponed from 03/05 (Insurance Coverage) Start: 09-06-2022 End: 11-06-2022 PSA/PROSTSPECAG SCRN PSA/PROSTSPECAG SCRN Lab Routine Screening for prostate cancer Expected: 09/06/2022, Expires: 11/06/2022 [facility] Work Phone: Comment on above: Expected: 09/06/2022 , Expires: 11/06/2022 Start: 05-11-2022 End: 05-25-2022 Influenza virus A and B RNA and SARS-CoV-2 (COVID-19) N gene panel - Respiratory specimen by CURTIS with probe detection COVID WITH FLUA+B, ROUTINE Microbiology Routine COVID Expected: 05/11/2022, Expires: 05/25/2022 [facility] Work Phone: Comment on above: Expected: 05/11/2022 , Expires: 05/25/2022 Start: 04-29-2022 Influenza vaccination INFLUENZA (#1) [facility] Start: 04-26-2022 End: 06-26-2022 Lipid 1996 panel - Serum or Plasma LIPID PANEL BASIC Lab Routine Mixed hyperlipidemia Expected: 04/26/2022, Expires: 06/26/2022 [facility] Work Phone: Comment on above: Expected: 04/26/2022 , Expires: 06/26/2022 Start: 04-15-2022 COVID-19 VACCINE (5 - Booster for Pfizer series) COVID-19 VACCINE (5 - Booster for Pfizer series) [facility] Start: 10-11-2021 COVID-19 VACCINE (4 - Booster for Pfizer series) COVID-19 VACCINE (4 - Booster for Pfizer series) [facility] Start: 08-29-2021 ADVANCE DIRECTIVE DISCUSSION ADVANCE DIRECTIVE DISCUSSION [facility] Start: 02-13-2020 FECAL OCCULT BLOOD FECAL OCCULT BLOO D [facility] Start: 02-13-2020 Screening for malign ant neoplasm of colon Fecal Occult Blood [facility] Start: 03-05-2018 Urine microalbumin profile [facility] Start: 12-04-2014 SHINGRIX VACCINE (2 of 3) SHINGRIX VACCINE (2 of 3) [facility] Start: 2009 RSV Vaccine (1 - 1-d ose 60+ series) RSV Vaccine (1 - 1-dose 60+ series) [facility] Start: 2009 RSV Vaccine (1 - Ris k 60-74 years 1-dose series) RSV Vaccine (1 - Risk 60-74 years 1-dose series) [facility] Start: 1994 COLOGUARD (FIT-DNA) COLOGUARD (FIT-D NA) [facility] Start: [address] COLONOGRAPHY [facility] Start: 1994 Screening for malign ant neoplasm of colon [facility] Start: 1994 SIGMOIDOSCOPY SIGMOIDOSCOPY [facility] Start: 1979 Zoledronic acid therapy ALPHA- 1 ANTITRYPSIN DEFICIENCY SCREENING [facility] Start: 1967 SPIROMETRY SPIROMETRY [facility] Start: 1949 ABDOMINAL AORTIC ANEURYSM SCREENING ABDOMINAL AORTIC ANEURYSM SCREENING [facility] Start: 1949 Abdominal aortic aneurysm screening Abdominal Aortic Aneurysm Screening [facility] Bacteria identified in Urine by Culture URINE CULTURE Microbiology Routine Burning with urination 10/03/2023 4:48 PM EST [facility] Work Phone: Bacteria identified in Wound by Culture BACTERIAL CULTURE AND GRAM STAIN, ABSCESS AND WOUND (AEROBIC CULTURE) Microbiology Routine Abscess of groin, right Ordered: 09/14/2024 [facility] Work Phone: Comment on above: Ordered: 09/14/2024 End: 02-26-2026 CT Head WO contrast CT BRAIN WO IVCON Radiology Routine Cerebral hemorrhage (HCC) 1 Occurrences starting 01/27/2025 until 02/26/2026 [facility] Work Phone: Comment on above: 1 Occurrences starti ng 01/27/2025 until 02/26/2026 End: 04-21-2023 ECG COMPLETE ECG COMPLETE ECG Routine 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) Screening for ischemic heart disease 1 Occurrences starting 04/21/2022 until 04/21/2023 [facility] Work Phone: Comment on above: 1 Occurrences starti ng 04/21/2022 until 04/21/2023 End: 05-04-2024 HOLTER MONITOR 48 HOUR HOLTER MONITOR 48 HOUR ECG Routine Orthostatic hypotension Lightheadedness Palpitation 1 Occurrences starting 05/04/2023 until 05/04/2024 [facility] Work Phone: Comment on above: 1 Occurrences starti ng 05/04/2023 until 05/04/2024 End: 01-17-2025 MR Brain WO contrast MRI BRAIN W QUANT WO IVCON Radiology Routine Major neurocognitive disorder (HCC) 1 Occurrences starting 12/19/2023 until 01/17/2025 [facility] Comment on above: 1 Occurrences starti ng 12/19/2023 until 01/17/2025 End: 01-17-2025 MR Unspecified body region 3D post processing MRI 3D POST PROCESSING Radiology Routine Major neurocognitive disorder (HCC) 1 Occurrences starting 12/19/2023 until 01/17/2025 [facility] Comment on above: 1 Occurrences starti ng 12/19/2023 until 01/17/2025 End: 10-06-2023 Mri brain brain stem w/o w/contrast material MRI BRAIN WO/W IVCON Radiology Routine Visual hallucinations Cognitive impairment, mild, so stated 1 Occurrences starting 09/06/2022 until 10/06/2023 [facility] Work Phone: Comment on above: 1 Occurrences starti ng 09/06/2022 until 10/06/2023 Patient Education ED Head Injury (Adult) ED Laceration, All Closures [facility] Work Phone: Patient referral [facility] Work Phone: POST VOID RESIDUAL POST VOID RES IDUAL Procedures Routine Nocturia Urinary urgency Ordered: 02/07/2024 [facility] Work Phone: Comment on above: Ordered: 02/07/2024 XR Foot - bilateral AP and Lateral and oblique XR FOOT GENERAL 3V AP/LAT/OBL BILATERAL Radiology Routine Bilateral foot pain 08/28/2024 11:[address] [facility] Work Phone: End: 10-05-2025 XR Lower extremity - bilateral AP W standing XR LEG FRONTAL HIP TO ANKLE MECHANICAL AXIS Radiology Routine Pain in left hip 1 Occurrences starting 09/05/2024 until 10/05/2025 [facility] Comment on above: 1 Occurrences starti ng 09/05/2024 until 10/05/2025 XR Lower extremity - bilateral AP W standing XR LEG FRONTAL HIP TO ANKLE MECHANICAL AXIS Radiology Routine Pain in left hip 09/05/2024 12:43 PM [facility] End: 10-05-2025 XR Pelvis and Hip - left AP and Lateral frog XR HIP GENERAL 3V PELV/AP/LAT LEFT Radiology Routine Pain in left hip 1 Occurrences starting 09/05/2024 until 10/05/2025 [facility] Work Phone: Comment on above: 1 Occurrences starti ng 09/05/2024 until 10/05/2025 XR Pelvis and Hip - left AP and Lateral frog XR HIP GENERAL 3V PELV/AP/LAT LEFT Radiology Routine Pain in left hip 09/05/2024 12:43 PM [facility] End: 10-21-2023 XR SHOULDER GENERAL 3V OR MORE AP/TRUE AP/OTHER LEFT XR SHOULDER GENERAL 3V OR MORE AP/TRUE AP/OTHER LEFT Radiology Routine Acute pain of left shoulder 1 Occurrences starting 09/21/2022 until 10/21/2023 [facility] Work Phone: Comment on above: 1 Occurrences starti ng 09/21/2022 until 10/21/2023 XR SHOULDER GENERAL 3V OR MORE AP/TRUE AP/OTHER LEFT XR SHOULDER GENERAL 3V OR MORE AP/TRUE AP/OTHER LEFT Radiology Routine Acute pain of left shoulder 09/21/2022 10:14 AM EST [facility] Work Phone: XR SHOULDER GENERAL 3V OR MORE AP/TRUE AP/OTHER LEFT XR SHOULDER GENERAL 3V OR MORE AP/TRUE AP/OTHER LEFT Radiology Routine Chronic left shoulder pain Ordered: 02/01/2023 [facility] Work Phone: Comment on above: Ordered: 02/01/2023 XR SHOULDER GENERAL 3V OR MORE AP/TRUE AP/OTHER LEFT XR SHOULDER GENERAL 3V OR MORE AP/TRUE AP/OTHER LEFT Radiology Routine Chronic left shoulder pain Ordered: 03/11/2023 [facility] Work Phone: Comment on above: Ordered: 03/11/2023 End: 03-01-2025 XR Thoracic spine AP and Lateral and Swimmers XR THORACIC GENERAL 3V AP/LAT/SWIMMERS Radiology Routine Thoracic spine pain 1 Occurrences starting 01/31/2024 until 03/01/2025 [facility] Work Phone: Comment on above: 1 Occurrences starti ng 01/31/2024 until 03/01/2025 XR Thoracic spine AP and Lateral and Swimmers XR THORACIC GENERAL 3V AP/LAT/SWIMMERS Radiology Routine Thoracic spine pain 01/31/2024 4:48 PM EDT [facility] Immunizations Immunization Date Immunization Notes Care Provider Riana granados 01-16-2025 tetanus toxoid, redu willie diphtheria toxoid, and acellular pertussis vaccine, adsorbed Dr. Jose Juan Christine MD Work Phone: [facility] 05-28-2024 respiratory syncytia l virus (RSV) vaccine, adjuvanted (AREXVY) [facility] Work Phone: [facility] 05-28-2024 Seasonal trivalent influenza vaccine, adjuvanted, preservative free [facility] WYJambo Work Phone: [facility] 05-28-2023 COVID-19 vaccine, ag e 12+ yr, season (PFIZER-BIONTECH) Immunization Brutus Work Phone: [facility] Work Phone: 05-28-2023 influenza (HD-IIV4) vaccine, age 65+ yr, high dose, quadrivalent, PF (FLUZONE HIGH-DOSE) Immunization [facility] Work Phone: [facility] 05-28-2023 influenza virus vaccine, unspecified formulation Lore Landonfrancisco j AGUILAR Work Phone: [facility] 07-02-2022 COVID-19 booster vaccine, age 12+ yr, bivalent (PFIZER-BIONTECH) Immunization [facility] Work Phone: [facility] Work Phone: 06-23-2022 influenza, high-dose , quadrivalent vaccine (FLUZONE HIGH DOSE QUADRIVALENT) Mi Nurse Work Phone: [facility] Work Phone: 06-23-2022 influenza virus vaccine, unspecified formulation Lori Muro Jr., MD Work Phone: [facility] 02-18-2022 COVID-19 vaccine, ag e 12+ yr (PFIZER-[employer] - [facility]) Nc Nurse Work Phone: [facility] Work Phone: 06-10-2021 influenza, high-dose , quadrivalent vaccine (FLUZONE HIGH DOSE QUADRIVALENT) Krunal Barragan MD Work Phone: [facility] 06-02-2020 influenza, high-dose , quadrivalent vaccine (FLUZONE HIGH DOSE QUADRIVALENT) Krunal Barragan MD Work Phone: [facility] 06-22-2019 influenza, high dose seasonal, preservative-free Krunal Barragan MD Work Phone: [facility] Work Phone: 05-08-2019 influenza, high dose seasonal, preservative-free Krunal Barragan MD Work Phone: [facility] 06-22-2018 influenza, high dose seasonal, preservative-free Krunal Barragan MD Work Phone: [facility] 01-30-2018 pneumococcal polysaccharide vaccine, 23 valent Krunal Barragan MD Work Phone: [facility] 06-15-2017 influenza, high dose seasonal, preservative-free Krunal Barragan MD Work Phone: [facility] 07-21-2016 influenza, high dose seasonal, preservative-free Krunal Barragan MD Work Phone: [facility] 06-12-2016 influenza, high dose seasonal, preservative-free Krunal Barragan MD Work Phone: [facility] 03-02-2016 pneumococcal conjuga te vaccine, 13 valent Krunal Barragan MD Work Phone: [facility] Work Phone: 06-10-2015 influenza, high dose seasonal, preservative-free Krunal Barragan MD Work Phone: [facility] 10-09-2014 zoster vaccine, live Krunal salmeron MD Work Phone: [facility] Work Phone: 07-01-2008 influenza virus vaccine, unspecified formulation Krunal Barragan MD Work Phone: [facility] 07-01-2008 pneumococcal polysaccharide vaccine, 23 valent Krunal Barragan MD Work Phone: [facility] 03-05-2008 tetanus toxoid, redu willie diphtheria toxoid, and acellular pertussis vaccine, adsorbed Krunal Barargan MD Work Phone: [facility] Work Phone: Payers Date Payer Category Payer Self-pay 2015 Medicare MEDICARE MEDICAR E A AND B [id number] 2015-Present [phone] [address] [address] [place] [address] Medicare [id number] 2015 Medicare [id number] 2015 Medicare [id number] 2014 [facility] [place] D[place] SUPPLE[place] [id number] 2014 Unknown FRAN[place]IS P[place] DICARE SUPPLEMENT [id number] 2014-Present [phone] [address] [place] [address] Indemnity [id number] 2014 Unknown [place] DICARE SUPPLE[place] [id number] 2014-Present [phone] [address] [place] [address] Indemnity [id number] 2014 Medicare [id number] 2002 Unknown FRANCOIS FLORALA ACCESS O [id number] Unknown [id number] Unknown [id number] Unknown [id number] Social History Date Type Detail Facility Start: 12-02-2011 End: 04-14-2024 Tobacco smoking status VTIS Ex-smoker [facility] Work Phone: Start: 11-01-1967 End: 10-31-1976 History of tobacco use Current smoker [facility] Work Phone: Start: 12-02-2011 End: 12-31-2022 Cigarettes smoked current (pack per day) - Reported 0.5 [facility] Start: 12-02-2011 End: 04-14-2024 Tobacco use and exposure Smokeless tobacco non-user [facility] Work Phone: Start: 11-24-2021 End: 01-25-2025 Alcohol intake Current drinker of alcohol (finding) [facility] Start: 04-22-2020 History SDOH Alcohol Frequency 5 [facility] Start: 12-22-2012 History SDOH Alcohol Comment one-two drinks per day [facility] Start: 1950 Sex Assigned At Not on file C [facility] Start: 07-21-2020 End: 06-07-2022 Exposure to SARS-CoV-2 (event) Not sure [facility] Start: 11-01-1967 End: 10-31-1976 History of tobacco use Cigarette Smoker [facility] Start: 04-22-2020 End: 12-31-2022 Alcohol Use Disorder Identification Test - Consumption [AUDIT-C] [facility] How often to you hav e a drink containing alcohol? 4 or more times a week [facility] Average Number of Drinks Not on file [facility] Start: 05-04-2023 End: 10-25-2023 Alcohol intake Ex-drinker (finding) [facility] Start: 07-12-2020 End: 08-11-2020 Exposure to SARS-CoV-2 (event) Unable to assess [facility] Start: 09-05-2024 Alcohol Comment daily [facility] Start: 1950 Sex Assigned At Male W [facility] Has the [employer], or water company threatened to shut off services in your home in past 12Mo No [facility] Work Phone: (I/We) worried jovita er (my/our) food would run out before (I/we) got money to buy more. Never true [facility] Medical Equipment Procedure Code Equipment Code Equipment Origin al Text Equipment Identifier Dates Head Rsp 36mm Neutral Glenoid Retain Screw - [id number] Start: 12-20-2022 Baseplate Rsp P2 30mm Glenoid Sterile - [id number] Start: 12-20-2022 Screw Rsp 5mm 18 mm Bone Lock Glenoid Baseplate Shoulder - [id number] Start: 12-20-2022 Insert Rsp Djo Surgical Standard Hxe+ Socket Sterile Humeral - [id number] Start: 12-20-2022 Stem Humeral Std Encore Reverse Shoulder [id number] - [id number] Start: 12-20-2022 Screw Rsp 5mm 30 mm Bone Lock Glenoid Baseplate Shoulder - [id number] Start: 12-20-2022 Screw Rsp 5mm 26 mm Bone Lock Glenoid Baseplate Shoulder - [id number] Start: 12-20-2022 Functional Status Date Assessment Result Facility 01-22-2015 Are you deaf, or do you have serious difficulty hearing No 01/22/2015 12:08 PM TRACEY RIBEIRO No [facility] 01-22-2015 Are you blind, or do you have serious difficulty seeing, even when wearing glasses No 01/22/2015 12:08 PM EDT AGUSTÍN TRACEY [facility] 01-22-2015 Do you have serious difficulty walking or climbing stairs No 01/22/2015 12:08 PM EDT TRACEY RANDOLPH [facility] 01-22-2015 Do you have difficul ty dressing or bathing No 01/22/2015 12:08 PM EDT TRACEY RANDOLPH [facility] 01-22-2015 Because of a physica l, mental, or emotional condition, do you have difficulty doing errands alone such as visiting a physician's office or shopping No 01/22/2015 12:08 PM EDT TRACEY RANDOLPH [facility] Mental Status Date Assessment Result Facility 01-22-2015 Because of a physica l, mental, or emotional condition, do you have serious difficulty concentrating, remembering, or making decisions No 01/22/2015 12:08 PM EDT TRACEY RANDOLPH [facility] Clinical Notes 08-11-2020 to 01-31-2025 Telephone Encounter - Felecia Saba LPN - 01/24/2025 2:44 PM EDTTelephone Encounter - Felecia Saba LPN - 01/24/2025 2:44 PM EDTTelephone Encounter - Felecia Saba LPN - 01/24/2025 2:26 PM EDT Note Date & Type Note Facility 01-31-2025 Note HNO ID: [id number] Author: DARIA HERNANDEZ RN Service: Care Management Author Type: Registered Nurse Type: Care Mgt Progress Note Filed: 01/31/2025 11:52 Note Text: CARE MANAGEMENT DISCHARGE NOTE SERVICE DATE: January 31, 2025 SERVICE TIME: 11:51 AM Admission Date: 01/25/2025 LOS: 6 days Discharge Arrangement Discharge Arrangement: Assisted Facility Was an expedited discharge program used?: No Services Arranged Medical Services: Other: See Comment Caregiver Assessment Caregiver is ready, willing and able to meet the patient's needs as recommended by the inter-professional team: Yes Name of Caregiver: [facility] Transportation Arrangements Transportation Arrangements: Ambulance Transportation Agency and Phone #:: [facility] ) [phone] / [phone] Date of Trip: 01/31/25 Time of Trip: 1400 Type of Service: BLS Non-emergency Is Patient Medicaid Pending?: No Was transportation financial coverage discussed with family?: 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 No auth needed, 7000 completed in HENs and RN to call report. Patient at bedside and agreeable to plan. 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 Name/Relationship: Method: In Person SIGNATURE: Daria Hernandez RN PATIENT NAME: Gaston Lainez DATE: January 31, 2025 TIME: 11:42 AM [facility] 01-31-2025 Note HNO ID: [id number] Author: DARIA HERNANDEZ RN Service: Care Management Author Type: Registered Nurse Type: Care Mgt Progress Note Filed: 01/31/2025 10:59 Note Text: Attestation signed by Irene Iniguez DO at 01/31/2025 11:06 AM Agree with below Signature: Irene Iniguez DO Date: 01/31/2025 Time: 11:06 AM Physician Certification of Less Than 30 Days Skilled Needs Earliest Possible Discharge Date: 01/31/25 To the best of my knowledge, all information provided about the individual is a true and an accurate reflection of Gaston Lainez's needs. I certify that following the inpatient level of care, a post-acute nursing facility stay is required for less than 30 days related to the condition(s) for which the patient was treated during the inpatient level of care: Principal Problem: SDH (subdural hematoma) (HCC) Active Problems: Cerebral hemorrhage (HCC) Fall from bed Bipolar 1 disorder (HCC) Delirium DNR (do not resuscitate) discussion Goals of care, counseling/discussion Dementia (HCC) Resolved Problems: * No resolved hospital problems. * Attending Physician: Irene Iniguez DO [facility] 01-31-2025 Note HNO ID: [id number] Author: DARIA HERNANDEZ RN Service: Care Management Author Type: Registered Nurse Type: Care Mgt Progress Note Filed: 01/31/2025 09:13 Note Text: CARE MANAGEMENT PROGRESS NOTE SERVICE DATE: 01/31/2025 SERVICE TIME: 9:12 AM LOS: 6 days Needs Prior to Discharge: To Be Determined, Accepting Facility, Bed Availability, Facility or Agency Choices, Discharge Transportation CM sending mass referral to find accepting facility for patient. Patient would benefit from a locked memory care unit due to elopement risk. CM has sent 12 referrals. Once there are accepting facilities, CM will discuss with patient family for FOC. CM will continue to follow. SIGNATURE: Daria Hernandez RN PATIENT NAME: Gaston Lainez DATE: January 31, 2025 TIME: 9:12 AM [facility] 01-31-2025 Note HNO ID: [id number] Author: NATIVIDAD SHANKS PA-C Service: General Surgery Author Type: Physician Isotope Hydrologist Type: Progress Notes Filed: 01/31/2025 08:17 Note Text: Trauma Surgery Progress Note SERVICE DATE: 01/31/2025 Trauma Service Pager: For questions or concerns Mon-Fri 6a-5p please page [phone]. After 5pm and on Weekends and Holidays, please page [phone] if in ICU or [phone] if on RNF. SUBJECTIVE: Patient sleeping soundly this morning with sitter at bedside. Intermittent agitation last night but no further Haldol administered. OBJECTIVE: Vitals: Temp (24hrs), Av.6 ?C (97.9 ?F), Min:36.3 ?C (97.4 ?F), Max:36.9 ?C (98.4 ?F) BP 158/82 Pulse 60 Temp 36.3 ?C (97.4 ?F) (Oral) Resp 16 Ht 182.9 cm (6') Wt 74.5 kg (164 lb 3.9 oz) SpO2 97% BMI 22.28 kg/m? O2 Therapy: Room Air IANDO: Date 01/30/25699 - 01/31/25 0659 01/31/25 07 - 02/01/25 0659 Shift 5231-5502 7155-8915 2910-3358 24 Hour Total 8483-9136 2845-5206 4355-6819 24 Hour Total INTAKE PO 180 540 720 PO 180 540 720 Supplements (mL) 0 0 0 Shift Total 180 540 720 OUTPUT Urine Urine Incontinence/Not Saved 2 x 1 x 3 x # of BMs Stool Incontinence 1 x 1 x Number of BMs 1 x 1 x Shift Total Weight (kg) 79 79 74.5 74.5 74.5 74.5 74.5 74.5 MEDICATIONS Current Facility-Administered Medications Medication Dose Route Frequency busPIRone 15 mg tab(s) (BUSPAR) 15 mg ORAL 2 times per day senna-docusate 8.6-50 mg 1 tablet (SENNA-S) 1 tablet ORAL BID levETIRAcetam 500 mg tab(s) (KEPPRA) 500 mg ORAL BID OLANZapine 5 mg tab(s) (ZYPREXA) 5 mg ORAL AT BEDTIME acetaminophen 975 mg tab(s) (TYLENOL) 975 mg ORAL TID heparin 5,000 Units injection 5,000 Units SUBCUTANEOUS q 8 H atorvastatin 40 mg tab(s) (LIPITOR) 40 mg ORAL DAILY albuterol HFA 90 mcg/actuation 2 puff (PROVENTIL HFA, VENTOLIN HFA) 2 puff INHALATION q 4 H PRN donepezil 5 mg tab(s) (ARICEPT) 5 mg ORAL DAILY WITH BREAKFAST memantine 10 mg tab(s) (NAMENDA) 10 mg ORAL BID tamsulosin 0.4 mg cap(s) (FLOMAX) 0.4 mg ORAL AT BEDTIME albuterol 2.5 mg /3 mL (0.083 %) 2.5 mg (PROVENTIL) 2.5 mg INHALATION QID budesonide 0.5 mg/2 mL 0.5 mg (PULMICORT) 0.5 mg INHALATION BID Labs: No results for input(s): NA, K, CHLOR, CO2, BUN, CREAT, GLUC, ANION, CA, MG, P, ALB, AST, ALT, ALKPHOS, TBILI, DBILI, PHOSINTL, WBC, HB, HCT, PLT, LACT, INR, PH, PCO2, PO2, BE, HCO3 in the last 72 hours. Invalid input(s): LISDBC PHYSICAL EXAM: Genl: Appears age appropriate. No acute distress. Sleeping soundly Head/Face: Normocephalic. Minimal left infraorbital ecchymosis. Eyes: EOMI. Sclera not icteric, not injected. Pupils 2 mm round and reactive Resp: No audible wheezes. Breathing is non-labored on RA. CVS: HR as above; 2+ pulses at RA, DP bilat. GI: Abdomen soft and benign MSK: Extremities without clubbing, cyanosis, edema. Normal ROM x 4. Skin: Warm and dry. Not jaundiced. Neuro: Somnolent. [place] spontaneously Psych: Unable to assess at this time. 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 Follow-up with neurosurgery in 2 weeks outpatient AMS, H/O dementia, bipolar with psychotic episodes, depression/anxiety Geriatrics consulted - appreciate recs Follows with psychiatry outpatient Continue home medications as ordered Delirium protocol DNR-CCA, DNI Sitter removed 01/29/2025 @ 0900 and replaced at 1700 due to agitation Patient continues to have a sitter this morning 01/31/2025 Will be challenging to get patient sitter-free x 24 hours May need to be discharged to memory care unit SNF rather than inpatient rehab given patient's impulsivity, intermittent agitation and inability to be without bedside sitter at this time. Current diet order: DIET REGULAR Pain regimen: Scheduled Tylenol Bowel regimen: Senna-S Labs: As above PPX: DVT: SQ Heparin; SCDs; Mobilize Ulcer: NA Vit D lev (more content not included)... [facility] 01-30-2025 Note HNO ID: [id number] Author: DARIA HERNANDEZ RN Service: Care Management Author Type: Registered Nurse Type: Care Mgt Progress Note Filed: 01/30/2025 12:22 Note Text: CARE MANAGEMENT PROGRESS NOTE SERVICE DATE: 01/30/2025 SERVICE TIME: 12:21 PM LOS: 5 days Needs Prior to Discharge: To Be Determined, Accepting Facility, Bed Availability, Facility or Agency Choices, Discharge Transportation CM spoke with patient family via phone and bedside. [facility] is unable to accept due to sitter. Family understands that the best option for the patient would be a SNF with a locked memory care unit. Patient agreeable for CM to send referrals near their home to see who can accept. He will need accepting facility, 7000 and transport. Cm will continue to follow. SIGNATURE: Daria Hernandez RN PATIENT NAME: Gaston Lainez DATE: January 30, 2025 TIME: 12:21 PM [facility] 01-30-2025 Note HNO ID: [id number] Author: NATIVIDAD SHANKS PA-C Service: General Surgery Author Type: Physician Isotope Hydrologist Type: Progress Notes Filed: 01/30/2025 11:11 Note Text: Trauma Surgery Progress Note SERVICE DATE: 01/30/2025 Trauma Service Pager: For questions or concerns Mon-Fri 6a-5p please page [phone]. After 5pm and on Weekends and Holidays, please page [phone] if in ICU or [phone] if on RNF. SUBJECTIVE: Patient sleeping soundly this morning. Sitter back at bedside. Sitter had been removed on 01/29/2025 around 0900 and replaced yesterday late afternoon secondary to agitation and inability to redirect. He was given Haldol x 1. Patient seen with family at bedside later in the morning. He is alert and sitting up in bed. Continues to deny pain or headache. Family expresses their concerns about his ability to return home after rehab and have been in discussions about possible custodial or memory care unit placement as a more [facility] living situation. OBJECTIVE: Vitals: Temp (24hrs), Av.2 ?C (97.1 ?F), Min:35.7 ?C (96.3 ?F), Max:36.6 ?C (97.8 ?F) BP 144/85 Pulse 60 Temp 36.3 ?C (97.3 ?F) (Axillary) Resp 18 Ht 182.9 cm (6') Wt 79 kg (174 lb 2.6 oz) SpO2 96% BMI 23.62 kg/m? O2 Therapy: Room Air IANDO: Date 01/29/25699 - 01/30/25 0659 01/30/25699 - 01/31/25 0659 Shift 0503-5588 9270-8796 8898-3076 24 Hour Total 7074-5472 6910-6658 8805-6846 24 Hour Total INTAKE PO 400 100 500 PO 400 100 500 Supplements (mL) 0 0 Shift Total 400 100 500 OUTPUT Urine Urine Incontinence/Not Saved 3 x 1 x 4 x # of BMs Number of BMs 1 x 1 x Shift Total Weight (kg) 79 79 79 79 79 79 79 79 MEDICATIONS Current Facility-Administered Medications Medication Dose Route Frequency busPIRone 15 mg tab(s) (BUSPAR) 15 mg ORAL 2 times per day senna-docusate 8.6-50 mg 1 tablet (SENNA-S) 1 tablet ORAL BID levETIRAcetam 500 mg tab(s) (KEPPRA) 500 mg ORAL BID OLANZapine 5 mg tab(s) (ZYPREXA) 5 mg ORAL AT BEDTIME acetaminophen 975 mg tab(s) (TYLENOL) 975 mg ORAL TID heparin 5,000 Units injection 5,000 Units SUBCUTANEOUS q 8 H atorvastatin 40 mg tab(s) (LIPITOR) 40 mg ORAL DAILY albuterol HFA 90 mcg/actuation 2 puff (PROVENTIL HFA, VENTOLIN HFA) 2 puff INHALATION q 4 H PRN donepezil 5 mg tab(s) (ARICEPT) 5 mg ORAL DAILY WITH BREAKFAST memantine 10 mg tab(s) (NAMENDA) 10 mg ORAL BID tamsulosin 0.4 mg cap(s) (FLOMAX) 0.4 mg ORAL AT BEDTIME albuterol 2.5 mg /3 mL (0.083 %) 2.5 mg (PROVENTIL) 2.5 mg INHALATION QID budesonide 0.5 mg/2 mL 0.5 mg (PULMICORT) 0.5 mg INHALATION BID Labs: No results for input(s): NA, K, CHLOR, CO2, BUN, CREAT, GLUC, ANION, CA, MG, P, ALB, AST, ALT, ALKPHOS, TBILI, DBILI, PHOSINTL, WBC, HB, HCT, PLT, LACT, INR, PH, PCO2, PO2, BE, HCO3 in the last 72 hours. Invalid input(s): [facility] PHYSICAL EXAM: Genl: Appears age appropriate. No acute distress. Standing at bedside. Head/Face: Normocephalic. Minimal left infraorbital ecchymosis. Eyes: EOMI. Sclera not icteric, not injected. Pupils 2 mm round and reactive Resp: No audible wheezes. Breathing is non-labored on RA. CVS: HR as above; 2+ pulses at RA, DP bilat. GI: Abdomen soft and benign MSK: Extremities without clubbing, cyanosis, edema. Normal ROM x 4. Skin: Warm and dry. Not jaundiced. Neuro: AANDOx0-1. DE LA CRUZ. Gross motors and sensation intact. Speech clear. No facial droop. 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 [facility] 01-29-2025 Note HNO ID: [id number] Author: MAXIME CARPIO, RN Service: Nursing Author Type: Registered Nurse Type: Progress Notes Filed: 01/29/2025 18:31 Note Text: Patient agitated about being in the hospital stating I just want to go home, you guys are not doing anything for me. Unable to be re-directed back into room and to bed. 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 Trauma notified, STAT EKG ordered along with Halodol IV. [facility] 01-29-2025 Note HNO ID: [id number] Author: NATIVIDAD SHANKS PA-C Service: General Surgery Author Type: Physician Isotope Hydrologist Type: Progress Notes Filed: 01/29/2025 13:44 Note Text: Documentation Query Surrounding edema and mass effect have been documented on the patient's CT Head. Based on your clinical judgement, please clarify if the patient was treated for: Cerebral edema This document will become part of the patient's medical record. [facility] 01-29-2025 Note HNO ID: [id number] Author: RONIT HERNÁNDEZ APRN.KITCHEN MECHANIC Service: Geriatrics Author Type: Nurse Specialist Type: Progress Notes Filed: 01/29/2025 14:19 Note Text: GERIATRIC SURGERY SERVICE PROGRESS NOTE SERVICE DATE: 01/29/2025 [id number] DIAGNOSES: Dementia, delirium, bipolar, R small SDH and stable subacute IPH BASELINE MENTATION: AANDO x2-3, independent in most ADLs like bathing and feeding, drives, needs help with finances, cooking, shopping, cleaning. INTERVAL HPI: Patient is awake and up to chair, blinds open. Not able to state full name (only first name), age, , place, month, year, why he is at the hospital and hospital course. But more conversant today. Does not appear to be hallucinating. Slept well per RN, trying without sitter, tolerating meals. No complaints today. Subjective Medications: MEDICATIONS REVIEWED: Yes Current Facility-Administered Medications Medication Dose Route Frequency atorvastatin 40 mg tab(s) (LIPITOR) 40 mg ORAL DAILY albuterol HFA 90 mcg/actuation 2 puff (PROVENTIL HFA, VENTOLIN HFA) 2 puff INHALATION q 4 H PRN busPIRone 15 mg tab(s) (BUSPAR) 15 mg ORAL BID donepezil 5 mg tab(s) (ARICEPT) 5 mg ORAL DAILY WITH BREAKFAST memantine 10 mg tab(s) (NAMENDA) 10 mg ORAL BID tamsulosin 0.4 mg cap(s) (FLOMAX) 0.4 mg ORAL AT BEDTIME albuterol 2.5 mg /3 mL (0.083 %) 2.5 mg (PROVENTIL) 2.5 mg INHALATION QID budesonide 0.5 mg/2 mL 0.5 mg (PULMICORT) 0.5 mg INHALATION BID heparin 5,000 Units injection 5,000 Units SUBCUTANEOUS q 8 H senna-docusate 8.6-50 mg 1 tablet (SENNA-S) 1 tablet ORAL BID levETIRAcetam 500 mg tab(s) (KEPPRA) 500 mg ORAL BID OLANZapine 5 mg tab(s) (ZYPREXA) 5 mg ORAL AT BEDTIME acetaminophen 975 mg tab(s) (TYLENOL) 975 mg ORAL TID Allergies: Allergies As of Date: 01/25/2025 (No Known Allergies) Fully Assessed 01/25/2025 Review of Systems All other systems reviewed and are negative. Objective 01/28/25 1909 01/28/25 2253 01/29/25 0258 01/29/25 0805 BP: 128/78 110/65 109/65 Pulse: (!) 57 (!) 52 (!) 57 (!) 53 Resp: 17 14 14 16 Temp: 36.2 ?C (97.2 ?F) 36.1 ?C (97 ?F) 36.1 ?C (96.9 ?F) TempSrc: Axillary Axillary Axillary SpO2: 98% 96% 100% 98% Weight: Height: Physical Exam Vitals and nursing note reviewed. Constitutional: Appearance: Normal appearance. HENT: Head: Normocephalic and atraumatic. Mouth/Throat: Mouth: Mucous membranes are moist. Pharynx: Oropharynx is clear. Cardiovascular: Rate and Rhythm: Normal rate. Pulmonary: Effort: Pulmonary effort is normal. Abdominal: General: Abdomen is flat. Palpations: Abdomen is soft. Musculoskeletal: General: Normal range of motion. Cervical back: Normal range of motion. Skin: General: Skin is warm and dry. Neurological: Mental Status: He is alert. He is disoriented. Comments: Confused. Getting closer to baseline 4AT: Alertness: Normal or mild sleepiness (0) AMT- age, , place, year: 2 or more errors (2) Attention: Can't do 7 or refuses start (1) Acute or fluctuating cognitive status: Yes (4) 4AT Score: 7/12, indicating possible delirium and/or cognitive impairment possible cognitive impairment unlikely delirium or severe cognitive impairment DELIRIUM ASSESSMENT: DEAR assessment: High risk BCAM: Positive Anti-psychotics in 48 hours: Yes zyprexa 5mg HS Opioids/Benzodiazepines in 48 hrs: No Anti-cholinergics on Board: No Restraints: No Indwelling Catheters: No Last BM: 01/28, bowel regimen: senna BID Activity in the Past 24 hours: bed and stand Need for Ambulatory Devices: No LABS AND DIAGNOSTICS: Glucose (mg/dL) Date Value 01/27/2025 101 01/06/2021 102 Potassium (mmol/L) Date Value 01/27/2025 4.0 01/06/2021 4.7 Sodium (mmol/L) Date Value 01/27/2025 137 01/06/2021 140 Chloride (mmol/L) Date Value 01/27/2025 100 01/06/2021 104 CO2 (mmol/L) Date Value 01/27/2025 24 01/06/2021 25 Creatinine (mg/dL) Date Value 01/27/2025 0.86 01/06/2021 1.00 BUN (mg/dL) Date Value 01/27/2025 15 01/06/2021 20 Anion Gap (mmol/L) Date Value 01/27/2025 13 01/06/2021 11 Calcium (mg/dL) Date Value 01/06/2021 9.3 Calcium, Total (mg/dL) Date Value 01/27/2025 9.0 Protein, Total (g/dL) Date Value 01/25/2025 7.5 06/17/2020 6.5 Albumin (g/dL) Date Value 01/25/2025 4.3 06/17/2020 4.3 Bilirubin, Total (mg/dL) Date Value 01/25/2025 0.4 06/17/2020 0.5 Alkaline Phosphatase (U/L) Date Value 01/25/2025 88 06/17/2020 46 AST (U/L) Date Value 01/25/2025 18 06/17/2020 20 ALT (U/L) Date Value 01/25/2025 14 06/17/2020 11 CBC: Hemoglobin (g/dL) Date Value 01/27/2025 13.6 01/19/2021 12.9 Hematocrit (%) Date Value 01/27/2025 40.6 01/19/2021 39.8 WBC (k/uL) Date Value 01/27/2025 7.56 01/19/2021 6.22 Platelet Count (k/uL) Date Value 01/27/2025 280 01/19/2021 205 TSH Date Value 11/26/2022 1.620 mIU/L 02/28/2020 (more content not included)... [facility] 01-29-2025 Note HNO ID: [id number] Author: NATIVIDAD SHANKS PA-C Service: General Surgery Author Type: Physician Isotope Hydrologist Type: Progress Notes Filed: 01/29/2025 07:16 Note Text: Trauma Surgery Progress Note SERVICE DATE: 01/29/2025 Trauma Service Pager: For questions or concerns Mon-Fri 6a-5p please page [phone]. After 5pm and on Weekends and Holidays, please page [phone] if in ICU or [phone] if on RNF. SUBJECTIVE: NAEON. Patient sitting up at bedside. Sitter remains in place. Patient more conversant today. Denies BERNARD, dizziness or visual changes. Discussed that we are working on getting him out of the hospital and he states, Well, you guys aren't doing a good enough job. OBJECTIVE: Vitals: Temp (24hrs), Av.4 ?C (97.5 ?F), Min:36.1 ?C (96.9 ?F), Max:37.2 ?C (99 ?F) BP 109/65 Pulse (!) 57 Temp 36.1 ?C (96.9 ?F) (Axillary) Resp 14 Ht 182.9 cm (6') Wt 79 kg (174 lb 2.6 oz) SpO2 100% BMI 23.62 kg/m? O2 Therapy: Room Air IANDO: Date 01/28/25699 - 01/29/2565801/29/25699 - 01/30/25 0659 Shift 3445-5934 6521-4676 4708-3178 24 Hour Total 0193-4596 1561-0866 0180-0723 24 Hour Total INTAKE PO 240 120 360 PO 240 120 360 Supplements (mL) 0 0 0 Shift Total 240 120 360 OUTPUT Urine 150 700 850 Void (ml) 150 150 Urine Incontinence/Not Saved 1 x 1 x Output ( External Collection Device 01/28/25 2300) 700 700 Shift Total 150 700 850 Weight (kg) 79 79 79 79 79 79 79 79 MEDICATIONS Current Facility-Administered Medications Medication Dose Route Frequency senna-docusate 8.6-50 mg 1 tablet (SENNA-S) 1 tablet ORAL BID levETIRAcetam 500 mg tab(s) (KEPPRA) 500 mg ORAL BID OLANZapine 5 mg tab(s) (ZYPREXA) 5 mg ORAL AT BEDTIME acetaminophen 975 mg tab(s) (TYLENOL) 975 mg ORAL TID heparin 5,000 Units injection 5,000 Units SUBCUTANEOUS q 8 H atorvastatin 40 mg tab(s) (LIPITOR) 40 mg ORAL DAILY albuterol HFA 90 mcg/actuation 2 puff (PROVENTIL HFA, VENTOLIN HFA) 2 puff INHALATION q 4 H PRN busPIRone 15 mg tab(s) (BUSPAR) 15 mg ORAL BID donepezil 5 mg tab(s) (ARICEPT) 5 mg ORAL DAILY WITH BREAKFAST memantine 10 mg tab(s) (NAMENDA) 10 mg ORAL BID tamsulosin 0.4 mg cap(s) (FLOMAX) 0.4 mg ORAL AT BEDTIME albuterol 2.5 mg /3 mL (0.083 %) 2.5 mg (PROVENTIL) 2.5 mg INHALATION QID budesonide 0.5 mg/2 mL 0.5 mg (PULMICORT) 0.5 mg INHALATION BID Labs: Recent Labs 01/27/25 0200 NA 137 K 4.0 CHLOR 100 CO2 24 BUN 15 CREAT 0.86 GLUC 101* ANION 13 CA 9.0 WBC 7.56 HB 13.6 HCT 40.6 PLT 280 PHYSICAL EXAM: Genl: Appears age appropriate. No acute distress. Standing at bedside. Head/Face: Normocephalic. Minimal left infraorbital ecchymosis. Eyes: EOMI. Sclera not icteric, not injected Resp: No audible wheezes. Breathing is non-labored on RA. CVS: HR as above; 2+ pulses at RA, DP bilat. GI: Deferred due to positioning and refusal to adjust MSK: Extremities without clubbing, cyanosis, edema. Normal ROM x 4. Skin: Warm and dry. Not jaundiced. Neuro: AANDOx0-1. DE LA CRUZ. Gross motors and sensation intact. Speech clear. No facial droop. 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 Follow-up with neurosurgery in 2 weeks outpatient AMS, H/O dementia, bipolar with psychotic episodes, depression/anxiety Geriatrics consulted - appreciate recs Follows with psychiatry outpatient Continue home medications as ordered Delirium protocol DNR-CCA, DNI Sitter remains at bedside this morning May need to consult inpatient psychiatry for further assistance Current diet order: DIET REGULAR Pain regimen: Scheduled Tylenol Bowel regimen: Senna-S Labs: As above PPX: DVT: SQ Heparin; SCDs; Mobilize Ulcer: NA Vit D level if > 65 yo: pending Consulted Services: Trauma NSGY PT/OT DRAFTER GEOPHYSICAL Geriatrics Dispo Planning: PT/OT recs AR. Case management following. Medically stable for discharge. Inci (more content not included)... [facility] 01-28-2025 Note HNO ID: [id number] Author: DARIA HERNANDEZ RN Service: Care Management Author Type: Registered Nurse Type: Care Mgt Progress Note Filed: 01/28/2025 14:57 Note Text: CARE MANAGEMENT PROGRESS NOTE SERVICE DATE: 01/28/2025 SERVICE TIME: 1:08 PM LOS: 3 days Needs Prior to Discharge: To Be Determined, Accepting Facility, Bed Availability, Discharge Transportation [facility] unable to accept patient. CM spoke with patient at bedside and she asked for a referral to be sent to [facility]. Per team patient is medically ready for dc once facility has been chosen. No auth needed. Will need cot transport arranged. CM will continue to follow. 1456- Per [facility] patient will need to be sitter free for 24 hours before they can accept. SIGNATURE: Daria Hernandez RN PATIENT NAME: Gaston Lainez DATE: January 28, 2025 TIME: 1:08 PM [facility] 01-28-2025 Note HNO ID: [id number] Author: NATIVIDAD SHANKS PA-C Service: General Surgery Author Type: Physician Isotope Hydrologist Type: Progress Notes Filed: 01/28/2025 10:00 Note Text: Trauma Surgery Progress Note SERVICE DATE: 01/28/2025 Trauma Service Pager: For questions or concerns Mon-Fri 6a-5p please page [phone]. After 5pm and on Weekends and Holidays, please page [phone] if in ICU or [phone] if on RNF. SUBJECTIVE: NAEON. Upon arrival, patient standing next to bed holding onto side rail staring at the back wall. Per nurse tech, patient has been standing in this position for hours and refuses to get back in bed. Patient is not agitated at this time. Makes eye contact to voice and denies BERNARD or pain. OBJECTIVE: Vitals: Temp (24hrs), Av.6 ?C (97.9 ?F), Min:36.3 ?C (97.3 ?F), Max:37.2 ?C (99 ?F) BP 121/76 Pulse (!) 53 Temp 37.2 ?C (99 ?F) (Axillary) Resp 16 Ht 182.9 cm (6') Wt 79 kg (174 lb 2.6 oz) SpO2 96% BMI 23.62 kg/m? O2 Therapy: Room Air IANDO: Date 01/27/25699 - 01/28/2565801/28/25699 - 06/03/25 0659 Shift 1891-5367 1419-2710 5660-3409 24 Hour Total 8398-1549 4224-1113 2175-2565 24 Hour Total INTAKE PO 480 140 620 0 0 PO 480 140 620 0 0 Supplements (mL) 0 0 Shift Total 480 140 620 0 0 OUTPUT Urine 7410 228 9103 Urine Incontinence/Not Saved 2 x 1 x 3 x Output ( External Collection Device 01/25/25 1426) 0341 092 5220 # of BMs Stool Incontinence 1 x 1 x Shift Total 7363 812 3896 Weight (kg) 79 79 79 79 79 79 79 79 MEDICATIONS Current Facility-Administered Medications Medication Dose Route Frequency heparin 5,000 Units injection 5,000 Units SUBCUTANEOUS q 8 H levETIRAcetam 500 mg injection (KEPPRA) 500 mg INTRAVENOUS BID atorvastatin 40 mg tab(s) (LIPITOR) 40 mg ORAL DAILY albuterol HFA 90 mcg/actuation 2 puff (PROVENTIL HFA, VENTOLIN HFA) 2 puff INHALATION q 4 H PRN acetaminophen 975 mg tab(s) (TYLENOL) 975 mg ORAL QID busPIRone 15 mg tab(s) (BUSPAR) 15 mg ORAL BID OLANZapine 2.5 mg tab(s) (ZYPREXA) 2.5 mg ORAL AT BEDTIME donepezil 5 mg tab(s) (ARICEPT) 5 mg ORAL DAILY WITH BREAKFAST memantine 10 mg tab(s) (NAMENDA) 10 mg ORAL BID tamsulosin 0.4 mg cap(s) (FLOMAX) 0.4 mg ORAL AT BEDTIME albuterol 2.5 mg /3 mL (0.083 %) 2.5 mg (PROVENTIL) 2.5 mg INHALATION QID budesonide 0.5 mg/2 mL 0.5 mg (PULMICORT) 0.5 mg INHALATION BID Labs: Recent Labs 01/27/25 0200 01/26/25 0243 01/25/25 0955 NA 137 137 135* K 4.0 3.8 4.2 CHLOR 100 102 98 CO2 24 24 27 BUN 15 11 15 CREAT 0.86 0.79 0.93 GLUC 101* 98 105* ANION 13 11 10 CA 9.0 8.6 9.6 MG -- -- 2.3 ALB -- -- 4.3 AST -- -- 18 ALT -- -- 14 ALKPHOS -- -- 88 TBILI -- -- 0.4 WBC 7.56 6.53 7.75 HB 13.6 12.4* 13.6 HCT 40.6 37.3* 40.2 PLT 280 238 262 PHYSICAL EXAM: Genl: Appears age appropriate. No acute distress. Standing at bedside. Head/Face: Normocephalic. Atraumatic. Eyes: EOMI. Sclera not icteric, not injected Resp: No audible wheezes. Breathing is non-labored on RA. CVS: HR as above; 2+ pulses at RA, DP bilat. GI: Abdomen is soft, non-tender, not distended. No peritonitis. MSK: Extremities without clubbing, cyanosis, edema. Normal ROM x 4. Skin: Warm and dry. Not jaundiced. Neuro: AANDOx0. Not able to state name, , time or current whereabouts. DE LA CRUZ. Gross motors and sensation intact. Speech clear. No facial droop. 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 Follow-up with neurosurgery in 2 weeks outpatient AMS, H/O dementia Geriatrics consult pending Follows with psychiatry outpatient Continue home medications as ordered Delirium protocol Will need to have code status discussion with spouse 01/28/2025 Current diet order: DIET REGULAR Pain regimen: Scheduled Tylenol Bowel regimen: Senna-S Labs: As above PPX: DVT: SQ Heparin; SCDs; Mobilize Ulcer: NA Vit D level if > 65 yo: pending Consulted Services: Trauma NSGY PT/OT DRAFTER GEOPHYSICAL Geriatrics Dispo Planning: PT/OT recs AR. Case management following. Medically stable for discharge. Incidentals: Non (more content not included)... [facility] 01-28-2025 Note HNO ID: [id number] Author: ANNIKA ARIAS LSW Service: Care Management Author Type: Cloth Tearer Type: Care Mgt Progress Note Filed: 01/28/2025 08:37 Note Text: CARE MANAGEMENT PROGRESS NOTE SERVICE DATE: 01/28/2025 SERVICE TIME: 8:36 AM LOS: 3 days Trauma Assessment- Reviewed chart. Pt's tox screen was not done at this time. No concern for substance abuse. Trauma assessment not appropriate at this time. SIGNATURE: SHANTHI Rosario PATIENT NAME: Gaston Lainez DATE: January 28, 2025 TIME: 8:36 AM [facility] 01-27-2025 Note HNO ID: [id number] Author: TIKI CASE PA-C Service: Neurosurgery Author Type: Physician Isotope Hydrologist Type: Progress Notes Filed: 01/27/2025 10:49 Note Text: Neurosurgery Progress Note SERVICE DATE: 01/27/2025 SUBJECTIVE: Naeon - pt awake and restless in bed. Perseverates on 'wanting out of here and going home.' Stubborn to some questions but able to say his name and BD. Denies pain OBJECTIVE: Vitals: Temp (24hrs), Av.4 ?C (97.6 ?F), Min:36.3 ?C (97.4 ?F), Max:36.6 ?C (97.8 ?F) BP 142/82 Pulse 60 Temp 36.6 ?C (97.8 ?F) Resp 14 Ht 182.9 cm (6') Wt 79 kg (174 lb 2.6 oz) SpO2 97% BMI 23.62 kg/m? O2 Therapy: Room Air IANDO: Date 01/26/25 07 - 01/27/2559 01/27/25699 - 01/28/25 0659 Shift 5379-4264 8023-7033 7222-2142 24 Hour Total 4267-8611 4175-4528 9328-4250 24 Hour Total INTAKE PO 210 240 450 240 240 PO 210 240 450 240 240 Supplements (mL) 0 0 Shift Total 210 240 450 240 240 OUTPUT Urine 300 758 378 3939 700 700 Urine Incontinence/Not Saved 1 x 1 x Output ( External Collection Device 01/25/25 1426) 300 390 373 9787 700 700 Shift Total 300 708 855 1218 700 700 Weight (kg) 79 79 79 79 79 79 79 79 MEDICATIONS Current Facility-Administered Medications Medication Dose Route Frequency heparin 5,000 Units injection 5,000 Units SUBCUTANEOUS q 8 H levETIRAcetam 500 mg injection (KEPPRA) 500 mg INTRAVENOUS BID atorvastatin 40 mg tab(s) (LIPITOR) 40 mg ORAL DAILY albuterol HFA 90 mcg/actuation 2 puff (PROVENTIL HFA, VENTOLIN HFA) 2 puff INHALATION q 4 H PRN acetaminophen 975 mg tab(s) (TYLENOL) 975 mg ORAL QID busPIRone 15 mg tab(s) (BUSPAR) 15 mg ORAL BID OLANZapine 2.5 mg tab(s) (ZYPREXA) 2.5 mg ORAL AT BEDTIME donepezil 5 mg tab(s) (ARICEPT) 5 mg ORAL DAILY WITH BREAKFAST memantine 10 mg tab(s) (NAMENDA) 10 mg ORAL BID tamsulosin 0.4 mg cap(s) (FLOMAX) 0.4 mg ORAL AT BEDTIME albuterol 2.5 mg /3 mL (0.083 %) 2.5 mg (PROVENTIL) 2.5 mg INHALATION QID budesonide 0.5 mg/2 mL 0.5 mg (PULMICORT) 0.5 mg INHALATION BID Labs: Recent Labs 01/27/25 0200 01/26/25 0243 01/25/25 0955 NA 137 137 135* K 4.0 3.8 4.2 CHLOR 100 102 98 CO2 24 24 27 BUN 15 11 15 CREAT 0.86 0.79 0.93 GLUC 101* 98 105* ANION 13 11 10 CA 9.0 8.6 9.6 MG -- -- 2.3 ALB -- -- 4.3 AST -- -- 18 ALT -- -- 14 ALKPHOS -- -- 88 TBILI -- -- 0.4 WBC 7.56 6.53 7.75 HB 13.6 12.4* 13.6 HCT 40.6 37.3* 40.2 PLT 280 238 262 Exam: GENERAL: Awake and alert; restless and agitated NEURO: Oriented to name and BD; speech clear and fluent; followed limited commands; agitated and obstinate?; DE LA CRUZ well STRENGTH: strong equal sales and service agent HEENT: left periorbital ecchymosis; pupils equal and reactive; eomi LUNGS: Unlabored breathing ASSESSMENT AND PLAN: 74 year old male hx dementia had remote GLF; found to have subacute left frontal IPH and small right SDH - neuro stable - baseline dementia - CTHx2 stable - DVT ppx: SCDs - may start SQH - pain control: Tylenol prn - avoid narcotic - PT/OT to mobilize - f/u 2 wks with rCTH - will request - NS will SO - plz call with questions or concerns Parts of this note may have been copied from one of my previous notes and remain pertinent. The documentation has been reviewed and edited as necessary to support the clinical decision making for today's visit. SIGNATURE: Tiki Case PA-C PATIENT NAME: Gaston Lainez DATE: January 27, 2025 TIME: 10:42 AM Pager: [phone] [facility] 01-27-2025 Note HNO ID: [id number] Author: LYNNE BIGGS MD Service: General Surgery Author Type: Resident Type: Progress Notes Filed: 01/27/2025 12:26 Note Text: Attestation signed by Lynne Biggs MD at 01/27/2025 12:26 PM Attending Note I evaluated the patient and personally participated in the blevins components. I agree with the resident's findings and plan as documented and have discussed the case and management of the patient's care with the resident. Patient more confused today when compared to his exam from yesterday when was bedside. Seems to be consistent with his baseline and history of dementia. Acute rehab planning underway. Dc daily labs, no significant abnormalities. Attempted to call with updates today, left voicemail Signature: Lynne Biggs MD Date: 01/27/2025 Time: 12:22 PM Trauma Surgery Progress Note SERVICE DATE: 01/27/2025 Trauma Service Pager: For questions or concerns Mon-Fri 6a-5p please page [phone]. After 5pm and on Weekends and Holidays, please page [phone] if in ICU or [phone] if on RNF. SUBJECTIVE: Patient evaluated at bedside, Aox0. Denies any headache, chest pain, SOB. OBJECTIVE: Vitals: Temp (24hrs), Av.4 ?C (97.6 ?F), Min:36.3 ?C (97.4 ?F), Max:36.6 ?C (97.8 ?F) BP 142/82 Pulse 60 Temp 36.6 ?C (97.8 ?F) Resp 14 Ht 182.9 cm (6') Wt 79 kg (174 lb 2.6 oz) SpO2 97% BMI 23.62 kg/m? O2 Therapy: Room Air IANDO: Date 01/26/25699 - 01/27/2565801/27/25699 - 01/28/25 0659 Shift 9922-1874 0969-9452 4534-7580 24 Hour Total 0898-6652 0628-1712 4477-7715 24 Hour Total INTAKE PO 210 240 450 PO 210 240 450 Supplements (mL) 0 0 Shift Total 210 240 450 OUTPUT Urine 300 550 815 0461 700 700 Urine Incontinence/Not Saved 1 x 1 x Output ( External Collection Device 01/25/25 1426) 300 666 039 8073 700 700 Shift Total 300 029 129 6651 700 700 Weight (kg) 79 79 79 79 79 79 79 79 MEDICATIONS: Current Facility-Administered Medications Medication Dose Route Frequency heparin 5,000 Units injection 5,000 Units SUBCUTANEOUS q 8 H levETIRAcetam 500 mg injection (KEPPRA) 500 mg INTRAVENOUS BID atorvastatin 40 mg tab(s) (LIPITOR) 40 mg ORAL DAILY albuterol HFA 90 mcg/actuation 2 puff (PROVENTIL HFA, VENTOLIN HFA) 2 puff INHALATION q 4 H PRN acetaminophen 975 mg tab(s) (TYLENOL) 975 mg ORAL QID busPIRone 15 mg tab(s) (BUSPAR) 15 mg ORAL BID OLANZapine 2.5 mg tab(s) (ZYPREXA) 2.5 mg ORAL AT BEDTIME donepezil 5 mg tab(s) (ARICEPT) 5 mg ORAL DAILY WITH BREAKFAST memantine 10 mg tab(s) (NAMENDA) 10 mg ORAL BID tamsulosin 0.4 mg cap(s) (FLOMAX) 0.4 mg ORAL AT BEDTIME albuterol 2.5 mg /3 mL (0.083 %) 2.5 mg (PROVENTIL) 2.5 mg INHALATION QID budesonide 0.5 mg/2 mL 0.5 mg (PULMICORT) 0.5 mg INHALATION BID Labs: Recent Labs 01/27/25 0200 01/26/25 0243 01/25/25 0955 NA 137 137 135* K 4.0 3.8 4.2 CHLOR 100 102 98 CO2 24 24 27 BUN 15 11 15 CREAT 0.86 0.79 0.93 GLUC 101* 98 105* ANION 13 11 10 CA 9.0 8.6 9.6 MG -- -- 2.3 ALB -- -- 4.3 AST -- -- 18 ALT -- -- 14 ALKPHOS -- -- 88 TBILI -- -- 0.4 WBC 7.56 6.53 7.75 HB 13.6 12.4* 13.6 HCT 40.6 37.3* 40.2 PLT 280 238 262 PHYSICAL EXAM: GENERAL: Alert. No distress. Resting comfortably. NEURO: AANDOx3. No focal neurologic deficits. Sensation grossly intact. HEENT: Normocephalic. Atraumatic. EOMI. LUNGS: Unlabored breathing. Equal excursion bilaterally. CARDIAC: Regular rate. Good perfusion throughout. ABDOMEN: Soft, non-tender, non-distended. No rebound or guarding. EXTREMITIES: DE LA CRUZ. No deformities. SKIN: No obvious jaundice or pallor. ASSESSMENT AND PLAN: Assessment Active Hospital Problems Diagnosis Date Noted SDH (subdural hematoma) (HCC) 01/25/2025 Cerebral hemorrhage (HCC) 01/25/2025 74 year old male with PMH of dementia, COPD, anxiety, HLD, GERD who is here after a fall out of bed 8 days ago. Imaging performed: - CT HN - CXR, PXR Traumatic Injuries: - Acute intraparenchymal hemorrhage is present within the left superior frontal gyrus measuring up to 2.3 cm in diameter with surrounding edema and minimal local mass effect. - Thin subdural hematomas present along the right cerebral convexity measuring up to 4 mm in greatest thickness with no substantial mass effect or midline shift. Hospital Course: - 01/25 transfer from [facility] Care Plan: - ICH, SDH - NSY consulted - Rpt CT H with interval decrease - Q4 hr NC - Keppra per NSGY - Ok for RNF - Ok for diet - PT/OT/DRAFTER GEOPHYSICAL - OK to start DVT ppx w/ SQH this afternoon - pain and nausea prn - pulmonary hygiene - progressive mobility - strict Is/Os - continue daily labs PPX: - DVT: hold chemoppx, SCDs - Ulcer: n/a - Vit D level if > 65 yo: pending Consulted Services: - NSGY, Trauma, pa (more content not included)... [facility] 01-26-2025 Note HNO ID: [id number] Author: CARLY SINGER RN Service: Care Management Author Type: Registered Nurse Type: Care Mgt Initial Assessment Filed: 01/26/2025 16:55 Note Text: CARE MANAGEMENT: ASSESSMENT AND DISCHARGE PLAN SERVICE DATE: January 26, 2025 SERVICE TIME: 4:51 PM PCP: Leticia Harding APRN.PROMOTIONS REPRESENTATIVE Primary Contact: Extended Emergency Contact Information Primary Emergency Contact: Marilynn Lainez Address: [address] [place], [place] [id number] Mobile Relation: Spouse Admission Status: Inpatient Insurance Provider: MEDICARE A AND B Discharge Planning requested by: Per Department Practice Potential Transition Plans Assisted Facility/Intermediate Care Facility Advance Directives Current Advance Directive: None Ship Propeller Finisher Attempted to Assist with AD Completion: Yes Action: Education Provided Current Living Arrangements and Support Lives with: Spouse/significant other Type of Residence: Private Residence (House) Does the patient have to climb stairs at home?: No Support: Family members How do you manage to accomplish the following: Independent: Ambulation, Bathe/Shower, Dress, Meals/Meal Prep, Going to the bathroom, Medication Management, Transportation to appointments/community Current Services/Equipment Current Post-Acute Service(s): DME Current DME Type: Cane, Standard walker, Shower seat Discharge Planning Patient Goal(s): Be able to go home [place] Explained: [place] Given: Yes Are you interested in bedside delivery of your medications? No Discharge Planning Participant(s): Family, Spouse/significant other, Patient Patient/Family Comments: Caregiver Assessment: Caregiver is ready, willing and able to meet the patient's needs as recommended by the inter-professional team: Yes Name of Caregiver: Marilynn Transport at Discharge: Transportation Arrangements: To Be Determined Needs Prior to Discharge: Needs Prior to Discharge: Accepting Facility, Discharge Transportation, To Be Determined Post-Acute Discharge Plan: CM in to speak with patient, at bedside. CHIEF RELAY TESTER patient was ind at home. did help him with meals. + DME, +PCP, +RX. Patient is now confused. CM discussed with family recommendation of [facility]. Family would like referral sent to [facility] as it is the only one near them. Referral sent. CM will follow for changes to care plan. Patient will need transportation at d//c. SIGNATURE: Carly Singer RN PATIENT NAME: Gaston Lainez DATE: January 26, 2025 TIME: 4:51 PM [facility] 01-26-2025 Note HNO ID: [id number] Author: LYNNE BIGGS MD Service: General Surgery Author Type: Resident Type: Progress Notes Filed: 01/26/2025 20:28 Note Text: Attestation signed by Lynne Biggs MD at 01/26/2025 8:28 PM Attending Note I evaluated the patient and personally participated in the blevins components. I agree with the resident's findings and plan as documented and have discussed the case and management of the patient's care with the resident. Patient more alert today. Seen with bedside. Reportedly ate all of his lunch. No pain issues. Briefly discussed acute rehab planning process given therapy recommendations. He and will consider acute rehab and discuss with family. Signature: Lynne Biggs MD Date: 01/26/2025 Time: 1:55 PM Trauma Surgery Progress Note SERVICE DATE: 01/26/2025 Trauma Service Pager: For questions or concerns Mon-Fri 6a-5p please page [phone]. After 5pm and on Weekends and Holidays, please page [phone] if in ICU or [phone] if on RNF. SUBJECTIVE: Patient evaluated at bedside, Aox1, knows he is in [place] but disoriented to person and time. Denies any headache, chest pain, SOB. OBJECTIVE: Vitals: Temp (24hrs), Av.4 ?C (97.5 ?F), Min:36.3 ?C (97.4 ?F), Max:36.5 ?C (97.7 ?F) BP 117/69 Pulse 60 Temp 36.4 ?C (97.5 ?F) (Oral) Resp 15 Ht 182.9 cm (6') Wt 79 kg (174 lb 2.6 oz) SpO2 97% BMI 23.62 kg/m? O2 Therapy: Room Air IANDO: Date 01/25/25 1500 - 01/26/2559 01/26/25 0700 - 01/27/25 0659 Shift 0639-6062 7969-0279 24 Hour Total 0139-4729 2988-8554 7053-2624 24 Hour Total INTAKE PO 100 100 210 210 PO 100 100 210 210 Supplements (mL) 0 0 Shift Total 100 100 210 210 OUTPUT Urine 300 300 300 300 Urine Incontinence/Not Saved 1 x 1 x Output ( External Collection Device 01/25/25 1426) 300 300 300 300 Shift Total 300 300 300 300 Weight (kg) 79 79 79 79 79 79 MEDICATIONS: Current Facility-Administered Medications Medication Dose Route Frequency levETIRAcetam 500 mg injection (KEPPRA) 500 mg INTRAVENOUS BID atorvastatin 40 mg tab(s) (LIPITOR) 40 mg ORAL DAILY albuterol HFA 90 mcg/actuation 2 puff (PROVENTIL HFA, VENTOLIN HFA) 2 puff INHALATION q 4 H PRN acetaminophen 975 mg tab(s) (TYLENOL) 975 mg ORAL QID busPIRone 15 mg tab(s) (BUSPAR) 15 mg ORAL BID OLANZapine 2.5 mg tab(s) (ZYPREXA) 2.5 mg ORAL AT BEDTIME donepezil 5 mg tab(s) (ARICEPT) 5 mg ORAL DAILY WITH BREAKFAST memantine 10 mg tab(s) (NAMENDA) 10 mg ORAL BID tamsulosin 0.4 mg cap(s) (FLOMAX) 0.4 mg ORAL AT BEDTIME albuterol 2.5 mg /3 mL (0.083 %) 2.5 mg (PROVENTIL) 2.5 mg INHALATION QID budesonide 0.5 mg/2 mL 0.5 mg (PULMICORT) 0.5 mg INHALATION BID Labs: Recent Labs 01/26/25 0243 01/25/25 0955 NA 137 135* K 3.8 4.2 CHLOR 102 98 CO2 24 27 BUN 11 15 CREAT 0.79 0.93 GLUC 98 105* ANION 11 10 CA 8.6 9.6 MG -- 2.3 ALB -- 4.3 AST -- 18 ALT -- 14 ALKPHOS -- 88 TBILI -- 0.4 WBC 6.53 7.75 HB 12.4* 13.6 HCT 37.3* 40.2 PLT 238 262 PHYSICAL EXAM: GENERAL: Alert. No distress. Resting comfortably. NEURO: AANDOx3. No focal neurologic deficits. Sensation grossly intact. HEENT: Normocephalic. Atraumatic. EOMI. LUNGS: Unlabored breathing. Equal excursion bilaterally. CARDIAC: Regular rate. Good perfusion throughout. ABDOMEN: Soft, non-tender, non-distended. No rebound or guarding. EXTREMITIES: DE LA CRUZ. No deformities. SKIN: No obvious jaundice or pallor. ASSESSMENT AND PLAN: Assessment Active Hospital Problems Diagnosis Date Noted SDH (subdural hematoma) (HCC) 01/25/2025 Cerebral hemorrhage (HCC) 01/25/2025 74 year old male with PMH of dementia, COPD, anxiety, HLD, GERD who is here after a fall out of bed 8 days ago. Imaging performed: - CT HN - CXR, PXR Traumatic Injuries: - Acute intraparenchymal hemorrhage is present within the left superior frontal gyrus measuring up to 2.3 cm in diameter with surrounding edema and minimal local mass effect. - Thin subdural hematomas present along the right cerebral convexity measuring up to 4 mm in greatest thickness with no substantial mass effect or midline shift. Hospital Course: - 01/25 transfer from [facility] Plan: - ICH, SDH - NSY consulted - Rpt CT H with interval decrease - Q4 hr NC - Keppra per NSGY - Ok for RNF - Ok for diet - PT/OT/DRAFTER GEOPHYSICAL - Hold dvt ppx - pain and nausea prn - pulmonary hygiene - progressive mobility - strict Is/Os - continue daily labs -Palliative care consult placed PPX: - DVT: hold chemoppx, SCDs - Ulcer: n/a - Vit D level if > 65 yo: pending Consulted Services: - NSGY, Trauma, palliative Dispo Planning: - PT/OT recommending [facility]. Case management following. Incidentals: - There is multilevel cervical spondylosis with mainly foraminal s (more content not included)... [facility] 01-25-2025 Note HNO ID: [id number] Author: ENMANUEL MATA APRN.PROMOTIONS REPRESENTATIVE Service: Neurosurgery Author Type: Nurse Practitioner Type: Plan of Care Filed: 01/25/2025 16:37 Note Text: Neurosurgery Plan of Care Repeat CTH reviewed and d/w attending. Ok for floor with q4hr neuro checks. SCDs at all times. Enmanuel Mata APRN.PROMOTIONS REPRESENTATIVE #[id number] [facility] 01-24-2025 Telephone encounter Note Images from the original note were not included. rior authorization approved Payer: [facility] [place] [phone] Approval Details Authorized from August 29, 2024 to February 23, 2025 Electronic appeal: Not supported View History Notes Time User Attachment Attachment received from payer. 01/24/2025 2:41 PM Cchs, Rx Priorauth In Document Pharmacy Benefits Open Encounter SHANIKA LAINEZ AMD25 BB CDH-N [id number] ([facility]) Covered: Retail, Mail Order Unknown: Specialty, Long-Term Care BIN: [id number] : 1950 Group ID: [id number] PCN: [id number] Legal sex: M Group name: [id number] Address: [address] [place] [id number] Medication Being Authorized diazePAM (VALIUM) 2 mg tablet Take 1 tablet by mouth one time only for 1 dose. 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 To be filled at: [id number] [place] [address] [address] [facility] - [phone] [facility] [address] [facility] 01-24-2025 Miscellaneous Notes Images from the original note were not included. rior authorization approved Payer: [facility] [place] [phone] Approval Details Authorized from August 29, 2024 to February 23, 2025 Electronic appeal: Not supported View History Notes Time User Attachment Attachment received from payer. 01/24/2025 2:41 PM Cchs, Rx Priorauth In Document Pharmacy Benefits Open Encounter SHANIKA LAINEZ AMD25 BB CDH-N [id number] ([facility]) Covered: Retail, Mail Order Unknown: Specialty, Long-Term Care BIN: [id number] : 1950 Group ID: [id number] PCN: [id number] Legal sex: M Group name: [id number] Address: [address] [facility] [address] Medication Being Authorized diazePAM (VALIUM) 2 mg tablet Take 1 tablet by mouth one time only for 1 dose. 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 To be filled at: [id number] [place] [address] [address] [facility]. - [phone] [phone] Electronic PA rec'd and completed for diazepam documented in this encounter [facility] 01-24-2025 Telephone encounter Note Electronic PA rec'd and completed for diazepam [facility] 01-24-2025 Instructions Leticia Harding APRN.CNP - 01/24/2025 2:13 PM EDT - Your eyebrow stitches were removed today. - A small amount of antibiotic ointment was applied to the wound. - A stat head CT scan without contrast has been ordered; please go for this imaging as soon as possible to check for any bleeding. - A urinalysis has been ordered to rule out a bladder infection; please get this lab test done promptly. - Keep appt. In Apr. documented in this encounter [facility] 01-24-2025 Note HNO ID: [id number] Author: LETICIA HARDING APRN.PROMOTIONS REPRESENTATIVE Service: ? Author Type: Nurse Practitioner Type: Progress Notes Filed: 01/24/2025 14:16 Note Text: This is a 74 year old male who presents today with: No chief complaint on file. HISTORY OF PRESENT ILLNESS: Gaston Lainez is a 74 year old male. No chief complaint on file. Gaston is a 74-year-old male with a history of dementia, presenting for evaluation of worsening symptoms following a recent fall. Dementia: - Notable worsening of dementia symptoms since Tuesday. - Increased paranoia and fear of falling when sitting down. Fall: - Recent fall out of bed, possibly due to feet getting tangled. - Sustained a laceration requiring stitches; no CT scan performed at the time. - No significant bleeding reported from the laceration. - No nausea or emesis post-fall. - Increased unsteadiness when walking since the fall. - Mild headache with pressure when coughing. - Chronic double vision, making it difficult to assess changes. - Chronic dizziness, with slight worsening post-fall. PAST MEDICAL HISTORY: PAST MEDICAL HISTORY Diagnosis Date Abnormal stress echocardiogram 01/14/2021 01/21/[address] Barragan: right dominant. LMT min luminal, LAD mild diffuse, LCx mild luminal with large caliber nondominant vessel extending into a single large obtuse marginal branch, proximal vessel is mildly calcified +mild luminal irreg, RCA 40% Large-caliber dominant vessel: moderate calcification from the proximal to mid vessel, mild diffuse ectatic disease proximal.The ostium of the Anxiety state, unspecified 10/24/2007 Benign paroxysmal positional vertigo one remote episode Bunion Chronic obstructive asthma, unspecified 10/24/2007 Depression likely bipolar disorder Depressive disorder, not elsewhere classified 10/24/2007 Generalized anxiety disorder 10/24/2007 History of marijuana use 03/02/2016 Quit 08/2015 Hypermobility syndrome Mild coronary artery disease Mixed hyperlipidemia 11/27/2008 Nontraumatic rupture of tendons of biceps (long head) R, 10/07 L OCD (obsessive compulsive disorder) Pneumonia, organism unspecified(486) 11/2001 bilateral: cleared Primary insomnia 03/02/2016 Senile dementia (HCC) 2022 PAST SURGICAL HISTORY Procedure Laterality Date COLONOSCOPY FLX DX W/COLLJ SPEC WHEN PFRMD 09/21/2006 repeat due 2017 COLONOSCOPY FLX DX W/COLLJ SPEC WHEN PFRMD 04/22/2020 Colonoscopy COLSC FLX W/RMVL OF TUMOR POLYP LESION SNARE TQ 04/19/2017 2 adenomatous polyps - ESOPHAGOGASTRODUODENOSCOPY TRANSORAL DIAGNOSTIC 07/23/2019 EGD EXCISION OF BENIGN LESION GREATER THAN 1.25 CM 03/29/2000 tongue and lip lesions: fibroma; nose: sebaceous hyperplasia PAST SURGICAL HISTORY OF repair flexor tendon left thumb PAST SURGICAL HISTORY OF Left 09/03/2019 Dr. medina [facility]: left CTR and tenosynovectomy at wrist level PAST SURGICAL HISTORY OF Left 04/29/2021 Left median nerve release at the elbow and forearm, Dontae Medina MD, [facility] ROTATOR CUFF REPAIR 2008 left ROTATOR CUFF REPAIR 04/22/2016 right VASECTOMY UNI/BI SPX W/POSTOP SEMEN EXAMS ALLERGIES Patient has no known allergies. MEDICATIONS Current Outpatient Medications Medication Sig busPIRone (BUSPAR) 15 mg tablet Take 1 tablet by mouth two times a day. donepezil (ARICEPT) 5 mg tablet Take 1 tablet by mouth daily with breakfast. memantine (NAMENDA) 10 mg tablet Take 1 tablet by mouth two times a day. OLANZapine (ZYPREXA) 2.5 mg tablet use 1 to 2 tablets at bedtime fluticasone-salmeterol (WIXELA INHUB) 250-50 mcg/dose inhaler Inhale 1 Puff as instructed two times a day. atorvastatin (LIPITOR) 40 mg tablet Take 1 tablet by mouth once daily. tamsulosin (FLOMAX) 0.4 mg Take 1 capsule by mouth daily at bedtime. Patient should start on April 02, 2024. Tadalafil (CIALIS) 10 mg tablet 1-2 tabs daily as needed albuterol HFA (VENTOLIN HFA) 90 mcg/actuation inhaler Inhale 2 Puffs as instructed every 4 hours as needed for wheezing/shortness of breath. MULTIVITAMIN ORAL Take by mouth once daily. polyethylene glycol 3350 (MIRALAX) 17 gram/dose powder 17g (1 scoop) with 8 oz daily as needed for constipation No current facility-administered medications for this visit. FAMILY HISTORY Problem Relation Age of Onset Heart Mother age 66, CA, SLE other (lupus) Mother diagnosed age 49 Heart Father age 84, CHF other (G6PD) Sister G6PD Diabetes Brother 1/2 brother Hypertension Brother 1/2 brother Colon Cancer Brother rectal cancer? 1/2 brother Social History Tobacco Use Smoking status: Former Current packs/day: 0.00 Average packs/day: 0.5 packs/day for 9.0 years (4.5 ttl pk-yrs) Types: Cigarettes Start date: 11/01/1967 Quit date: 10/31/1976 Years since quittin.2 Smokeless tobacco: Never Vaping Use Vaping status: Never Used Substance Use Topics Alcohol use: Yes Alco (more content not included)... [facility] 01-24-2025 History of Presen t illness Narrative This is a 74 year old male who presents today with: No chief complaint on file. HISTORY OF PRESENT ILLNESS: Gaston Lainez is a 74 year old male. No chief complaint on file. Gaston is a 74-year-old male with a history of dementia, presenting for evaluation of worsening symptoms following a recent fall. Dementia: - Notable worsening of dementia symptoms since Tuesday. - Increased paranoia and fear of falling when sitting down. Fall: - Recent fall out of bed, possibly due to feet getting tangled. - Sustained a laceration requiring stitches; no CT scan performed at the time. - No significant bleeding reported from the laceration. - No nausea or emesis post-fall. - Increased unsteadiness when walking since the fall. - Mild headache with pressure when coughing. - Chronic double vision, making it difficult to assess changes. - Chronic dizziness, with slight worsening post-fall. PAST MEDICAL HISTORY: PAST MEDICAL HISTORY Diagnosis Date Abnormal stress echocardiogram 01/14/2021 01/21/[address] Barragan: right dominant. LMT min luminal, LAD mild diffuse, LCx mild luminal with large caliber nondominant vessel extending into a single large obtuse marginal branch, proximal vessel is mildly calcified +mild luminal irreg, RCA 40% Large-caliber dominant vessel: moderate calcification from the proximal to mid vessel, mild diffuse ectatic disease proximal.The ostium of the Anxiety state, unspecified 10/24/2007 Benign paroxysmal positional vertigo one remote episode Bunion Chronic obstructive asthma, unspecified 10/24/2007 Depression likely bipolar disorder Depressive disorder, not elsewhere classified 10/24/2007 Generalized anxiety disorder 10/24/2007 History of marijuana use 03/02/2016 Quit 08/2015 Hypermobility syndrome Mild coronary artery disease Mixed hyperlipidemia 11/27/2008 Nontraumatic rupture of tendons of biceps (long head) R, 10/07 L OCD (obsessive compulsive disorder) Pneumonia, organism unspecified(486) 11/2001 bilateral: cleared Primary insomnia 03/02/2016 Senile dementia (HCC) 2022 PAST SURGICAL HISTORY Procedure Laterality Date COLONOSCOPY FLX DX W/COLLJ SPEC WHEN PFRMD 09/21/2006 repeat due 2016 COLONOSCOPY FLX DX W/COLLJ SPEC WHEN PFRMD 04/22/2020 Colonoscopy COLSC FLX W/RMVL OF TUMOR POLYP LESION SNARE TQ 04/19/2017 2 adenomatous polyps - ESOPHAGOGASTRODUODENOSCOPY TRANSORAL DIAGNOSTIC 07/23/2019 EGD EXCISION OF BENIGN LESION GREATER THAN 1.25 CM 03/29/2000 tongue and lip lesions: fibroma; nose: sebaceous hyperplasia PAST SURGICAL HISTORY OF repair flexor tendon left thumb PAST SURGICAL HISTORY OF Left 09/03/2019 Dr. medina [facility]: left CTR and tenosynovectomy at wrist level PAST SURGICAL HISTORY OF Left 04/29/2021 Left median nerve release at the elbow and forearm, Dontae Medina MD, [facility] ROTATOR CUFF REPAIR 2008 left ROTATOR CUFF REPAIR 04/22/2016 right VASECTOMY UNI/BI SPX W/POSTOP SEMEN EXAMS ALLERGIES Patient has no known allergies. MEDICATIONS Current Outpatient Medications Medication Sig busPIRone (BUSPAR) 15 mg tablet Take 1 tablet by mouth two times a day. donepezil (ARICEPT) 5 mg tablet Take 1 tablet by mouth daily with breakfast. memantine (NAMENDA) 10 mg tablet Take 1 tablet by mouth two times a day. OLANZapine (ZYPREXA) 2.5 mg tablet use 1 to 2 tablets at bedtime fluticasone-salmeterol (WIXELA INHUB) 250-50 mcg/dose inhaler Inhale 1 Puff as instructed two times a day. atorvastatin (LIPITOR) 40 mg tablet Take 1 tablet by mouth once daily. tamsulosin (FLOMAX) 0.4 mg Take 1 capsule by mouth daily at bedtime. Patient should start on April 02, 2024. Tadalafil (CIALIS) 10 mg tablet 1-2 tabs daily as needed albuterol HFA (VENTOLIN HFA) 90 mcg/actuation inhaler Inhale 2 Puffs as instructed every 4 hours as needed for wheezing/shortness of breath. MULTIVITAMIN ORAL Take by mouth once daily. polyethylene glycol 3350 (MIRALAX) 17 gram/dose powder 17g (1 scoop) with 8 oz daily as needed for constipation No current facility-administered medications for this visit. FAMILY HISTORY Problem Relation Age of Onset Heart Mother age 66, CA, SLE other (lupus) Mother diagnosed age 49 Heart Father age 84, CHF other (G6PD) Sister G6PD Diabetes Brother 1/2 brother Hypertension Brother 1/2 brother Colon Cancer Brother rectal cancer? 1/2 brother Social History Tobacco Use Smoking status: Former Current packs/day: 0.00 Average packs/day: 0.5 packs/day for 9.0 years (4.5 ttl pk-yrs) Types: Cigarettes Start date: 11/01/1967 Quit date: 10/31/1976 Years since quittin.2 Smokeless tobacco: Never Vaping Use Vaping status: Never Used Substance Use Topics Alcohol use: Yes Alcohol/week: 7.0 standard drinks of alcohol Types: 7 Glasses of wine per week Comment: daily Drug use: Not Currently Comment: marijuana use, has used inhalants REVIEW OF SYSTEMS Head: (+) headache Eyes: (+) diplopia Gastrointestinal: (-) nausea, (-) vomiting Neurological: (+) dizziness, (+) unsteady gait Psychiatric: (+) paranoia EXAM: BP 130/78 Pulse 63 Wt 77.6 kg (171 lb) SpO2 97% BMI 25.25 kg/m PHYSICAL EXAM: GENERAL: NAD, alert and oriented SKIN: Left eyebrow laceration with 3 sutures removed. Ecchymosis under left eye. HEAD: Normocephalic, sutures removed from eyebrow laceration. EYES: pinpoint pupils- no reaction noted, conjunctiva clear. NECK: Supple, no lymphadenopathy, normal thyroid, no carotid bruits. LUNGS: Clear to auscultation bilaterally, no wheezes/rhonchi/rales. HEART: Regular rate and rhythm, no murmurs. No ectopy. EXTREMITIES: Normal, no deformities, no skin discoloration, no edema. NEURO: Awake, alert and oriented x3, cranial nerves II-XII grossly intact, worsening ataxia gait, no involuntary motions. 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 Ataxia right finger with [id number] ataxia. LABS: ASSESSMENT/PLAN: 1. Injury of head, subsequent encounter (S09.90XD) 2. 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 No initial CT scan performed. - Neurological examination reveals worsening dementia symptoms, increased unsteadiness, and paranoia about sitting down. Notable weakness in hand grasp. - Removed sutures from the eyebrow area; applied antibiotic ointment. - Ordered a stat CT scan of the head to rule out intracranial hemorrhage. (Valium 2 mg once [address]) - Ordered a urinalysis to exclude urinary tract infection as a contributing factor to altered mental status. -Check UA with culture Discussed treatment plan and patient voices understanding. Patient's questions answered appropriately. Medications and potential side effects were discussed and patient voices understanding. Return to the office as scheduled or as needed for worsening/no improvement. Leticia Harding APRN.PROMOTIONS REPRESENTATIVE documented in this encounter [facility] 01-24-2025 Telephone encounter Note Patient was seen at [facility] January 16, 2025 for blunt injury and fall causing laceration. Patient has a history of asthma. Rolled out of bed about an hour ago striking his left elbow and face on the floor causing a laceration. He is on no blood thinners not even aspirin. He has had no vomiting, no headache, no neck pain. They are unsure of his last tetanus shot. He has a 1 to 2 inch laceration along his left eyebrow. Mild bleeding. No hematoma. Blood pressure 175/97, heart rate 67, respirations 18, oxygen saturation 100% The laceration above the left eyebrow was repaired With subcutaneous linear sutures. Closed with 3 simple interrupted sutures. Tetanus shot updated. Sutures to come out in 7 days. [facility] 01-24-2025 Miscellaneous Notes Patient was seen at [facility] January 16, 2025 for blunt injury and fall causing laceration. Patient has a history of asthma. Rolled out of bed about an hour ago striking his left elbow and face on the floor causing a laceration. He is on no blood thinners not even aspirin. He has had no vomiting, no headache, no neck pain. They are unsure of his last tetanus shot. He has a 1 to 2 inch laceration along his left eyebrow. Mild bleeding. No hematoma. Blood pressure 175/97, heart rate 67, respirations 18, oxygen saturation 100% The laceration above the left eyebrow was repaired With subcutaneous linear sutures. Closed with 3 simple interrupted sutures. Tetanus shot updated. Sutures to come out in 7 days. documented in this encounter [facility] 01-16-2025 Discharge summary [facility] 01-09-2025 Telephone encounter Note Patient's , Marilynn, called back and the below below results given. Sent to appointment line to schedule with Dr. Drake. Jen Gaona RN [facility] 01-09-2025 Miscellaneous Notes Patient's , Marilynn, called back and the below below results given. Sent to appointment line to schedule with Dr. Drake. Jen Gaona RN Called patient to provide below results. No response. Left VM to call back office. Jacqueline He LPN ----- Message from Viri Beasley sent at 01/08/2025 10:01 AM EDT ----- Please call patient to inform him that his circulation on left foot is diminished. If he desires amputation of left 2nd toe, I would have him see Dr. Drake for consultation to determine his ability to heal a toe amputation. documented in this encounter [facility] 01-08-2025 Telephone encounter Note Called patient to provide below results. No response. Left VM to call back office. Jacqueline He LPN [facility] 01-08-2025 Telephone encounter Note ----- Message from Viri Beasley sent at 01/08/2025 10:01 AM EDT ----- Please call patient to inform him that his circulation on left foot is diminished. If he desires amputation of left 2nd toe, I would have him see Dr. Drake for consultation to determine his ability to heal a toe amputation. [facility] 12-22-2024 Note HNO ID: [id number] Author: IVRI BEASLEY, ? Service: ? Author Type: Physician Type: Progress Notes Filed: 12/22/2024 12:54 Note Text: Subjective Gaston is a 74-year-old male presenting for follow-up of left second toe pain. Left Second Toe Pain: - Pain due to rubbing between the first and second toes. - Uses a Band-Aid for padding to alleviate pain; unable to walk without it. - Reports a callus on the left second toe. - Previous visit on August 28, 2024, discussed hammertoes and arthritis. - X-rays from July showed a large bunion on the left foot and deformity on the right foot. Lifestyle: - Retired, previously worked in a [employer]. - Exercises at the gym 3-4 days a week. Musculoskeletal: (+) left foot pain PAST MEDICAL HISTORY Diagnosis Date Abnormal stress echocardiogram 01/14/2021 01/21/[address] Barragan: right dominant. LMT min luminal, LAD mild diffuse, LCx mild luminal with large caliber nondominant vessel extending into a single large obtuse marginal branch, proximal vessel is mildly calcified +mild luminal irreg, RCA 40% Large-caliber dominant vessel: moderate calcification from the proximal to mid vessel, mild diffuse ectatic disease proximal.The ostium of the Anxiety state, unspecified 10/24/2007 Benign paroxysmal positional vertigo one remote episode Bunion Chronic obstructive asthma, unspecified 10/24/2007 Depression likely bipolar disorder Depressive disorder, not elsewhere classified 10/24/2007 Generalized anxiety disorder 10/24/2007 History of marijuana use 03/02/2016 Quit 08/2015 Hypermobility syndrome Mild coronary artery disease Mixed hyperlipidemia 11/27/2008 Nontraumatic rupture of tendons of biceps (long head) R, 10/07 L OCD (obsessive compulsive disorder) Pneumonia, organism unspecified(486) 11/2001 bilateral: cleared Primary insomnia 03/02/2016 Senile dementia (HCC) 2022 Current Outpatient Medications Medication Sig Dispense Refill busPIRone (BUSPAR) 15 mg tablet Take 1 tablet by mouth two times a day. 180 tablet 1 donepezil (ARICEPT) 5 mg tablet Take 1 tablet by mouth daily with breakfast. 90 tablet 1 memantine (NAMENDA) 10 mg tablet Take 1 tablet by mouth two times a day. 180 tablet 1 OLANZapine (ZYPREXA) 2.5 mg tablet use 1 to 2 tablets at bedtime 180 tablet 2 fluticasone-salmeterol (WIXELA INHUB) 250-50 mcg/dose inhaler Inhale 1 Puff as instructed two times a day. 3 Each 3 atorvastatin (LIPITOR) 40 mg tablet Take 1 tablet by mouth once daily. 90 tablet 3 tamsulosin (FLOMAX) 0.4 mg Take 1 capsule by mouth daily at bedtime. Patient should start on April 02, 2024. 90 capsule 3 Tadalafil (CIALIS) 10 mg tablet 1-2 tabs daily as needed 30 tablet 2 albuterol HFA (VENTOLIN HFA) 90 mcg/actuation inhaler Inhale 2 Puffs as instructed every 4 hours as needed for wheezing/shortness of breath. 1 Each 5 MULTIVITAMIN ORAL Take by mouth once daily. polyethylene glycol 3350 (MIRALAX) 17 gram/dose powder 17g (1 scoop) with 8 oz daily as needed for constipation 225 g 5 No current facility-administered medications for this visit. Family History Problem Relation Age of Onset Heart Mother age 66, CA, SLE other (lupus) Mother diagnosed age 49 Heart Father age 84, CHF other (G6PD) Sister G6PD Diabetes Brother 1/2 brother Hypertension Brother 1/2 brother Colon Cancer Brother rectal cancer? 1/2 brother ALLERGIES No Known Allergies Objective There were no vitals taken for this visit. - Cardiovascular: Dorsalis pedis and posterior tibial pulses faint bilaterally; capillary refill time <5 seconds; skin temperature warm to cool from proximal to distal; diminished hair growth. - Skin: Toenails 1-5 bilaterally normal in length and thickness; peeling skin without ulceration or callus on medial aspect of left second toe; no open wounds on right foot; slight maceration with scaling on plantar surface of right foot. - Neurological: Decreased vibratory sensation bilaterally. - Musculoskeletal: - Left Foot: - Large bunion deformity; lateral deviation of second and third toes with deformity at the proximal interphalangeal joint; arthritic changes in second proximal interphalangeal joint. - ROM: Diminished range of motion of first metatarsophalangeal joint without pain. - Right Foot: - Mild bunion deformity. Labs: Tests: Imaging: (08/28/2024) X-ray of both feet: Flattening of both feet with collapse at the navicular cuneiform level, large bunion deformity with skewfoot deformity bilaterally, and lateral deviation of the left second and third toes. 1. Hammer toe of left foot (M20.42) 2. Hallux rigidus of left foot (M20.22) - Significant deformity of the left second toe causing friction and pain due to rubbing against the first toe; no open wounds or calluses currently observed. - X-rays from August 28, 2024, show large bunion deform (more content not included)... [facility] 12-20-2024 Note HNO ID: [id number] Author: JCAQUELINE HE LPN Service: ? Author Type: LICENSED NURSE Type: Progress Notes Filed: 12/22/2024 12:54 Note Text: AMB ROOMING INTAKE FLOWSHEET DATA Pain Pain Level: 7 Pain Location: Toe Description: Sharp Duration Units: Months Frequency: Intermittent Intervention/Comfort measure: Reposition, Relaxation Patient presents with: Left Foot - Established Patient, Pain: Discuss 2nd toe amputation Jacqueline He LPN [facility] 11-19-2024 Note HNO ID: [id number] Author: GENOVEVA OLSON CCC-DRAFTER GEOPHYSICAL Service: ? Author Type: Speech Language Pathologist Type: Progress Notes Filed: 11/19/2024 09:17 Note Text: 11/19/2024 [facility] SPEECH DISCONTINUANCE OF CARE Plan of Care Period: Last Visit Date: 08/02/2024 Therapy Program: The following is a summary of the interventions provided for this episode of care; cognitive-linguistic training-instruction in use of external/internal memory strategies, use of routines, safety awareness, education on cognitive impairment. Assessment: Based on most recent visit, patient was progressing as expected toward functional goals based on documented subjective information on progress. Unable to formally assess goal achievement due to non-compliance with therapy plan of care. Reason for Discontinuation of Care: Patient has not returned to therapy or scheduled additional follow-up appointments. Genoveva Olson CCC-DRAFTER GEOPHYSICAL [facility] 11-14-2024 Instructions Alexus Naik, [employer].PROMOTIONS REPRESENTATIVE - 11/14/2024 6:28 PM EDT TREATMENT PLAN: Continue Zyprexa 2.5 to 5 mg at bedtime to help with sleep, anxiety, and mood disorder. Continue Buspar 15 mg twice daily to manage anxiety symptoms. Continue Namenda 10 mg twice daily to help with memory concerns. Continue Aricept 5 mg every morning with breakfast to help with memory concerns. Follow up in 6 months or sooner if needed. For those experiencing a suicidal crisis: --call the National Suicide Prevention Lifeline at 331 (755-279-7543) --text the Crisis Text Line (text HOME to 414785) --call 061 and let them know you are having a mental health crisis or go to your nearest Emergency Room for stabilization. --You can also call Mobile Crisis at [phone]. -- You may call the department appointment line at [phone] to schedule your appointment. -- Please call my nurse at [phone] or send me a message in [employer] with any questions or concerns between appointments. documented in this encounter [facility] 11-06-2024 History of Present illness Narrative Images from the original note were not included. FOLLOW UP - PSYCHIATRIC PROGRESS NOTE PATIENT: Gaston Lainez DATE: November 06, 2024 Visit Type:In person All information is from Patient report except when noted. This evaluation is NOT intended for forensic, disability or child custody purposes. CC: Presenting today for follow up regarding psychiatric medication management. HPI: Treatment Plan from Last Visit on 07/10/2024: TREATMENT PLAN: Continue Namenda, Aricept and Zyprexa as ordered. Continue Buspar but ok to take only once a day if 2nd dose not needed Consult placed for speech therapy for cognitive speech decline/recall deficit 4. Follow up 3 months. 5. Reach out if questions or concerns prior. Today Gaston shares that he is doing well. His is also here with him for the appointment. Eating a lot better. His weight has improved. Patient is happy with his mood, anxiety and sleep. Patient recently was struggling with more physical health concerns. He is recovering from a sinus infection. Had pneumonia prior to that. When he was taking medication for that, noticed the he experienced more delusions. He denies any dizziness or falls. Has not been able to go work out recently. Working out is a good coping skill for him. He went twice for speech therapy but felt that it was not beneficial for the patient. Has been driving locally. No episodes of irritability. He is consistent in taking his medications. Denies any side effects that he is concerned about currently. Interval Progress: Improved PATIENT DATA: Generalized Anxiety Disorder Scale (MARTELL-7) 04/23/2021 09/20/2023 12/27/2023 MARTELL - 7 SCORES Score 19 21 7 (0-4) minimal anxiety, (5-9) mild anxiety, (10-14) moderate anxiety, (15-21) severe anxiety Patient Health Questionnaire (PHQ-9) 05/04/2023 09/20/2023 12/27/2023 PHQ-9 Score 14 21 10 (0-4) minimal depression, (5-9) mild depression, (10-14) moderate depression, (15-19) moderately severe depression, (20-27) severe depression PAST MEDICAL HISTORY Diagnosis Date Abnormal stress echocardiogram 01/14/2021 01/21/[address] Barragan: right dominant. LMT min luminal, LAD mild diffuse, LCx mild luminal with large caliber nondominant vessel extending into a single large obtuse marginal branch, proximal vessel is mildly calcified +mild luminal irreg, RCA 40% Large-caliber dominant vessel: moderate calcification from the proximal to mid vessel, mild diffuse ectatic disease proximal.The ostium of the Anxiety state, unspecified 10/24/2007 Benign paroxysmal positional vertigo one remote episode Bunion Chronic obstructive asthma, unspecified 10/24/2007 Depression likely bipolar disorder Depressive disorder, not elsewhere classified 10/24/2007 Generalized anxiety disorder 10/24/2007 History of marijuana use 03/02/2016 Quit 08/2015 Hypermobility syndrome Mild coronary artery disease Mixed hyperlipidemia 11/27/2008 Nontraumatic rupture of tendons of biceps (long head) R, 10/07 L OCD (obsessive compulsive disorder) Pneumonia, organism unspecified(486) 11/2001 bilateral: cleared Primary insomnia 03/02/2016 Senile dementia (HCC) 2022 PAST SURGICAL HISTORY Procedure Laterality Date COLONOSCOPY FLX DX W/COLLJ SPEC WHEN PFRMD 09/21/2006 repeat due 2016 COLONOSCOPY FLX DX W/COLLJ SPEC WHEN PFRMD 04/22/2020 Colonoscopy COLSC FLX W/RMVL OF TUMOR POLYP LESION SNARE TQ 04/19/2017 2 adenomatous polyps - ESOPHAGOGASTRODUODENOSCOPY TRANSORAL DIAGNOSTIC 07/23/2019 EGD EXCISION OF BENIGN LESION GREATER THAN 1.25 CM 03/29/2000 tongue and lip lesions: fibroma; nose: sebaceous hyperplasia PAST SURGICAL HISTORY OF repair flexor tendon left thumb PAST SURGICAL HISTORY OF Left 09/03/2019 Dr. medina [facility]: left CTR and tenosynovectomy at wrist level PAST SURGICAL HISTORY OF Left 04/29/2021 Left median nerve release at the elbow and forearm, Dontae Medina MD, [facility] ROTATOR CUFF REPAIR 2008 left ROTATOR CUFF REPAIR 04/22/2016 right VASECTOMY UNI/BI SPX W/POSTOP SEMEN EXAMS ALLERGIES No Known Allergies Current Outpatient Medications on File Prior to Visit Medication Sig amoxicillin-clavulanate potassium (AUGMENTIN) 875-125 mg per tablet Take 1 tablet by mouth every 12 hours for 10 days. fluticasone-salmeterol (WIXELA INHUB) 250-50 mcg/dose inhaler Inhale 1 Puff as instructed two times a day. memantine (NAMENDA) 10 mg tablet Take 1 tablet by mouth two times a day. OLANZapine (ZYPREXA) 2.5 mg tablet use 1 to 2 tablets at bedtime donepezil (ARICEPT) 5 mg tablet TAKE 1 TABLET BY MOUTH EVERY DAY WITH BREAKFAST atorvastatin (LIPITOR) 40 mg tablet Take 1 tablet by mouth once daily. busPIRone (BUSPAR) 15 mg tablet Take 1 tablet by mouth two times a day. tamsulosin (FLOMAX) 0.4 mg Take 1 capsule by mouth daily at bedtime. Patient should start on April 02, 2024. Tadalafil (CIALIS) 10 mg tablet 1-2 tabs daily as needed albuterol HFA (VENTOLIN HFA) 90 mcg/actuation inhaler Inhale 2 Puffs as instructed every 4 hours as needed for wheezing/shortness of breath. MULTIVITAMIN ORAL Take by mouth once daily. polyethylene glycol 3350 (MIRALAX) 17 gram/dose powder 17g (1 scoop) with 8 oz daily as needed for constipation No current facility-administered medications on file prior to visit. ROS: See HPI PFSH: See HPI VITAL SIGNS: 11/06/24 1007 BP: 136/82 Pulse: 71 Resp: 16 SpO2: 98% Weight: 77 kg (169 lb 12.8 oz) Last 3 Encounter BP Readings: Date: BP: 10/29/2024 122/86 10/24/2024 108/64 09/14/2024 120/84 MENTAL STATUS EXAMINATION: Appearance: Well dressed, well groomed Behavior: Behaves appropriately during the encounter Social relatedness: Euthymic Speech/Language: The patient demonstrates appropriate tone, prosody, veena, phonetics, and syntax Mood: euthymic Affect: Full and appropriate to topic Orientation: Person, Place, Time and Situation Associations: Intact and linear Hallucinations: None Delusions: None Suicidal Ideation: No suicidal ideation, intent or plan. Homicidal Ideation: No homicidal ideation, intent or plan. Insight: Appropriate Judgment: Appropriate DATA REVIEWED: Psychiatric scales, Electronic medical record, and Labs DIAGNOSIS: Major neurocognitive disorder (hcc) (primary encounter diagnosis) Mood disorder (hcc) Generalized anxiety disorder Visual hallucinations Restlessness and agitation Delusions (hcc) Encounter for long-term (current) use of medications History of trauma GAF: -70-61 Some mild symptoms or some difficulty in social, occupational, or school functioning, but generally functioning pretty well. TREATMENT PLAN: Continue Zyprexa 2.5 to 5 mg at bedtime to help with sleep, anxiety, and mood disorder. Continue Buspar 15 mg twice daily to manage anxiety symptoms. Continue Namenda 10 mg twice daily to help with memory concerns. Continue Aricept 5 mg every morning with breakfast to help with memory concerns. Follow up in 6 months or sooner if needed. MEDICATION CHANGES: Current medication regimen unchanged. Prescriptions given Patient denies any involuntary movement related side effects. Risks and benefits of the medication, including any black box warnings, were discussed with the patient. Patient is aware to reach out with any questions, concerns, or worsening of symptoms prior to the next appointment. Patient educated on risks of substance use in combination with medications and advised that any substance use along with medications may alter their effectiveness. Follow Up: See Treatment Plan Medical Decision Making: Problems: Moderate: 2+ stable chronic illnesses Data: Unique source(s) for external note(s) reviewed: 3+ Unique test result(s) reviewed: 3+ Independent interpretation of test from other physician/QHCP Risk: Moderate: Moderate risk from testing/treatment and Drug management Medical Decision Making Level: 4 - Moderate ADD ON PSYCHOTHERAPY CODE : No SIGNATURE: Alexus Naik APRN.CNP PATIENT NAME: Gaston Lainez DATE: November 06, 2024 TIME: 10:15 AM documented in this encounter [facility] 11-06-2024 Note HNO ID: [id number] Author: ALEXUS NAIK APRN.CNP Service: ? Author Type: Nurse Practitioner Type: Progress Notes Filed: 11/14/2024 18:28 Note Text: FOLLOW UP - PSYCHIATRIC PROGRESS NOTE PATIENT: Gaston Lainez DATE: November 06, 2024 Visit Type:In person All information is from Patient report except when noted. This evaluation is NOT intended for forensic, disability or child custody purposes. CC: Presenting today for follow up regarding psychiatric medication management. HPI: Treatment Plan from Last Visit on 07/10/2024: TREATMENT PLAN: Continue Namenda, Aricept and Zyprexa as ordered. Continue Buspar but ok to take only once a day if 2nd dose not needed Consult placed for speech therapy for cognitive speech decline/recall deficit 4. Follow up 3 months. 5. Reach out if questions or concerns prior. Today Gaston shares that he is doing well. His is also here with him for the appointment. Eating a lot better. His weight has improved. Patient is happy with his mood, anxiety and sleep. Patient recently was struggling with more physical health concerns. He is recovering from a sinus infection. Had pneumonia prior to that. When he was taking medication for that, noticed the he experienced more delusions. He denies any dizziness or falls. Has not been able to go work out recently. Working out is a good coping skill for him. He went twice for speech therapy but felt that it was not beneficial for the patient. Has been driving locally. No episodes of irritability. He is consistent in taking his medications. Denies any side effects that he is concerned about currently. Interval Progress: Improved PATIENT DATA: Generalized Anxiety Disorder Scale (MARTELL-7) 04/23/2021 09/20/2023 12/27/2023 MARTELL - 7 SCORES Score 19 21 7 (0-4) minimal anxiety, (5-9) mild anxiety, (10-14) moderate anxiety, (15-21) severe anxiety Patient Health Questionnaire (PHQ-9) 05/04/2023 09/20/2023 12/27/2023 PHQ-9 Score 14 21 10 (0-4) minimal depression, (5-9) mild depression, (10-14) moderate depression, (15-19) moderately severe depression, (20-27) severe depression PAST MEDICAL HISTORY Diagnosis Date Abnormal stress echocardiogram 01/14/2021 01/21/[address] Barragan: right dominant. LMT min luminal, LAD mild diffuse, LCx mild luminal with large caliber nondominant vessel extending into a single large obtuse marginal branch, proximal vessel is mildly calcified +mild luminal irreg, RCA 40% Large-caliber dominant vessel: moderate calcification from the proximal to mid vessel, mild diffuse ectatic disease proximal.The ostium of the Anxiety state, unspecified 10/24/2007 Benign paroxysmal positional vertigo one remote episode Bunion Chronic obstructive asthma, unspecified 10/24/2007 Depression likely bipolar disorder Depressive disorder, not elsewhere classified 10/24/2007 Generalized anxiety disorder 10/24/2007 History of marijuana use 03/02/2016 Quit 08/2015 Hypermobility syndrome Mild coronary artery disease Mixed hyperlipidemia 11/27/2008 Nontraumatic rupture of tendons of biceps (long head) R, 10/07 L OCD (obsessive compulsive disorder) Pneumonia, organism unspecified(486) 11/2001 bilateral: cleared Primary insomnia 03/02/2016 Senile dementia (HCC) 2022 PAST SURGICAL HISTORY Procedure Laterality Date COLONOSCOPY FLX DX W/COLLJ SPEC WHEN PFRMD 09/21/2006 repeat due 2016 COLONOSCOPY FLX DX W/COLLJ SPEC WHEN PFRMD 04/22/2020 Colonoscopy COLSC FLX W/RMVL OF TUMOR POLYP LESION SNARE TQ 04/19/2017 2 adenomatous polyps - ESOPHAGOGASTRODUODENOSCOPY TRANSORAL DIAGNOSTIC 07/23/2019 EGD EXCISION OF BENIGN LESION GREATER THAN 1.25 CM 03/29/2000 tongue and lip lesions: fibroma; nose: sebaceous hyperplasia PAST SURGICAL HISTORY OF repair flexor tendon left thumb PAST SURGICAL HISTORY OF Left 09/03/2019 Dr. medina [facility]: left CTR and tenosynovectomy at wrist level PAST SURGICAL HISTORY OF Left 04/29/2021 Left median nerve release at the elbow and forearm, Dontae Medina MD, [facility] ROTATOR CUFF REPAIR 2008 left ROTATOR CUFF REPAIR 04/22/2016 right VASECTOMY UNI/BI SPX W/POSTOP SEMEN EXAMS ALLERGIES No Known Allergies Current Outpatient Medications on File Prior to Visit Medication Sig amoxicillin-clavulanate potassium (AUGMENTIN) 875-125 mg per tablet Take 1 tablet by mouth every 12 hours for 10 days. fluticasone-salmeterol (WIXELA INHUB) 250-50 mcg/dose inhaler Inhale 1 Puff as instructed two times a day. memantine (NAMENDA) 10 mg tablet Take 1 tablet by mouth two times a day. OLANZapine (ZYPREXA) 2.5 mg tablet use 1 to 2 tablets at bedtime donepezil (ARICEPT) 5 mg tablet TAKE 1 TABLET BY MOUTH EVERY DAY WITH BREAKFAST atorvastatin (LIPITOR) 40 mg tablet Take 1 tablet by mouth once daily. busPIRone (BUSPAR) 15 mg tablet Take 1 tablet by mouth two times a day. tamsulosin (FLOMAX) 0.4 mg (more content not included)... [facility] 10-29-2024 Instructions Leticia Harding APRN.CNP - 10/29/2024 10:40 AM EST - AMOXICILLIN 875 MG-POTASSIUM CLAVULANATE 125 MG TABLET - Saline nasal spray frequently while on antibiotic documented in this encounter [facility] 10-29-2024 Note HNO ID: [id number] Author: LETICIA HARDING APRN.CNP Service: ? Author Type: Nurse Practitioner Type: Progress Notes Filed: 10/29/2024 10:41 Note Text: This is a 74 year old male who presents today with: Patient presents with: 6 Month Exam HISTORY OF PRESENT ILLNESS: Gaston Lainez is a 74 year old male. Patient presents with: 6 Month Exam Sick for a week No fever or chills + Head congestion + PND No H/A + Body aches No SOB + cough- some productivity- yellow No nausea No diarrhea + really tired PAST MEDICAL HISTORY: PAST MEDICAL HISTORY Diagnosis Date Abnormal stress echocardiogram 01/14/2021 01/21/[address] Barragan: right dominant. LMT min luminal, LAD mild diffuse, LCx mild luminal with large caliber nondominant vessel extending into a single large obtuse marginal branch, proximal vessel is mildly calcified +mild luminal irreg, RCA 40% Large-caliber dominant vessel: moderate calcification from the proximal to mid vessel, mild diffuse ectatic disease proximal.The ostium of the Anxiety state, unspecified 10/24/2007 Benign paroxysmal positional vertigo one remote episode Bunion Chronic obstructive asthma, unspecified 10/24/2007 Depression likely bipolar disorder Depressive disorder, not elsewhere classified 10/24/2007 Generalized anxiety disorder 10/24/2007 History of marijuana use 03/02/2016 Quit 08/2015 Hypermobility syndrome Mild coronary artery disease Mixed hyperlipidemia 11/27/2008 Nontraumatic rupture of tendons of biceps (long head) R, 10/07 L OCD (obsessive compulsive disorder) Pneumonia, organism unspecified(486) 11/2001 bilateral: cleared Primary insomnia 03/02/2016 Senile dementia (HCC) 2022 PAST SURGICAL HISTORY Procedure Laterality Date COLONOSCOPY FLX DX W/COLLJ SPEC WHEN PFRMD 09/21/2006 repeat due 2017 COLONOSCOPY FLX DX W/COLLJ SPEC WHEN PFRMD 04/22/2020 Colonoscopy COLSC FLX W/RMVL OF TUMOR POLYP LESION SNARE TQ 04/19/2017 2 adenomatous polyps - ESOPHAGOGASTRODUODENOSCOPY TRANSORAL DIAGNOSTIC 07/23/2019 EGD EXCISION OF BENIGN LESION GREATER THAN 1.25 CM 03/29/2000 tongue and lip lesions: fibroma; nose: sebaceous hyperplasia PAST SURGICAL HISTORY OF repair flexor tendon left thumb PAST SURGICAL HISTORY OF Left 09/03/2019 Dr. medina [facility]: left CTR and tenosynovectomy at wrist level PAST SURGICAL HISTORY OF Left 04/29/2021 Left median nerve release at the elbow and forearm, Dontae Medina MD, [facility] ROTATOR CUFF REPAIR 2008 left ROTATOR CUFF REPAIR 04/22/2016 right VASECTOMY UNI/BI SPX W/POSTOP SEMEN EXAMS ALLERGIES Patient has no known allergies. MEDICATIONS Current Outpatient Medications Medication Sig benzonatate (TESSALON PERLE) 100 mg capsule Take 1 capsule by mouth three times a day as needed for cough for up to 7 days. fluticasone-salmeterol (WIXELA INHUB) 250-50 mcg/dose inhaler Inhale 1 Puff as instructed two times a day. memantine (NAMENDA) 10 mg tablet Take 1 tablet by mouth two times a day. OLANZapine (ZYPREXA) 2.5 mg tablet use 1 to 2 tablets at bedtime donepezil (ARICEPT) 5 mg tablet TAKE 1 TABLET BY MOUTH EVERY DAY WITH BREAKFAST atorvastatin (LIPITOR) 40 mg tablet Take 1 tablet by mouth once daily. busPIRone (BUSPAR) 15 mg tablet Take 1 tablet by mouth two times a day. tamsulosin (FLOMAX) 0.4 mg Take 1 capsule by mouth daily at bedtime. Patient should start on April 02, 2024. Tadalafil (CIALIS) 10 mg tablet 1-2 tabs daily as needed albuterol HFA (VENTOLIN HFA) 90 mcg/actuation inhaler Inhale 2 Puffs as instructed every 4 hours as needed for wheezing/shortness of breath. MULTIVITAMIN ORAL Take by mouth once daily. polyethylene glycol 3350 (MIRALAX) 17 gram/dose powder 17g (1 scoop) with 8 oz daily as needed for constipation No current facility-administered medications for this visit. FAMILY HISTORY Problem Relation Age of Onset Heart Mother age 66, CA, SLE other (lupus) Mother diagnosed age 49 Heart Father age 84, CHF other (G6PD) Sister G6PD Diabetes Brother 1/2 brother Hypertension Brother 1/2 brother Colon Cancer Brother rectal cancer? 1/2 brother Social History Tobacco Use Smoking status: Former Current packs/day: 0.00 Average packs/day: 0.5 packs/day for 9.0 years (4.5 ttl pk-yrs) Types: Cigarettes Start date: 11/01/1967 Quit date: 10/31/1976 Years since quittin.0 Smokeless tobacco: Never Vaping Use Vaping status: Never Used Substance Use Topics Alcohol use: Yes Alcohol/week: 7.0 standard drinks of alcohol Types: 7 Glasses of wine per week Comment: daily Drug use: Not Currently Comment: marijuana use, has used inhalants REVIEW OF SYSTEMS GENERAL: No weight loss, + malaise, no fevers/ some chills HEENT: Negative for frequent or significant headaches, No changes in hearing or vision. Wears hearing aids NECK: Negative for lumps, goiter, pain and signi (more content not included)... [facility] 10-29-2024 History of Present illness Narrative This is a 74 year old male who presents today with: Patient presents with: 6 Month Exam HISTORY OF PRESENT ILLNESS: Gaston Lainez is a 74 year old male. Patient presents with: 6 Month Exam Sick for a week No fever or chills + Head congestion + PND No H/A + Body aches No SOB + cough- some productivity- yellow No nausea No diarrhea + really tired PAST MEDICAL HISTORY: PAST MEDICAL HISTORY Diagnosis Date Abnormal stress echocardiogram 01/14/2021 01/21/[address] Barragan: right dominant. LMT min luminal, LAD mild diffuse, LCx mild luminal with large caliber nondominant vessel extending into a single large obtuse marginal branch, proximal vessel is mildly calcified +mild luminal irreg, RCA 40% Large-caliber dominant vessel: moderate calcification from the proximal to mid vessel, mild diffuse ectatic disease proximal.The ostium of the Anxiety state, unspecified 10/24/2007 Benign paroxysmal positional vertigo one remote episode Bunion Chronic obstructive asthma, unspecified 10/24/2007 Depression likely bipolar disorder Depressive disorder, not elsewhere classified 10/24/2007 Generalized anxiety disorder 10/24/2007 History of marijuana use 03/02/2016 Quit 08/2015 Hypermobility syndrome Mild coronary artery disease Mixed hyperlipidemia 11/27/2008 Nontraumatic rupture of tendons of biceps (long head) R, 10/07 L OCD (obsessive compulsive disorder) Pneumonia, organism unspecified(486) 11/2001 bilateral: cleared Primary insomnia 03/02/2016 Senile dementia (HCC) 2022 PAST SURGICAL HISTORY Procedure Laterality Date COLONOSCOPY FLX DX W/COLLJ SPEC WHEN PFRMD 09/21/2006 repeat due 2016 COLONOSCOPY FLX DX W/COLLJ SPEC WHEN PFRMD 04/22/2020 Colonoscopy COLSC FLX W/RMVL OF TUMOR POLYP LESION SNARE TQ 04/19/2017 2 adenomatous polyps - ESOPHAGOGASTRODUODENOSCOPY TRANSORAL DIAGNOSTIC 07/23/2019 EGD EXCISION OF BENIGN LESION GREATER THAN 1.25 CM 03/29/2000 tongue and lip lesions: fibroma; nose: sebaceous hyperplasia PAST SURGICAL HISTORY OF repair flexor tendon left thumb PAST SURGICAL HISTORY OF Left 09/03/2019 Dr. medina [facility]: left CTR and tenosynovectomy at wrist level PAST SURGICAL HISTORY OF Left 04/29/2021 Left median nerve release at the elbow and forearm, Dontae Medina MD, [facility] ROTATOR CUFF REPAIR 2008 left ROTATOR CUFF REPAIR 04/22/2016 right VASECTOMY UNI/BI SPX W/POSTOP SEMEN EXAMS ALLERGIES Patient has no known allergies. MEDICATIONS Current Outpatient Medications Medication Sig benzonatate (TESSALON PERLE) 100 mg capsule Take 1 capsule by mouth three times a day as needed for cough for up to 7 days. fluticasone-salmeterol (WIXELA INHUB) 250-50 mcg/dose inhaler Inhale 1 Puff as instructed two times a day. memantine (NAMENDA) 10 mg tablet Take 1 tablet by mouth two times a day. OLANZapine (ZYPREXA) 2.5 mg tablet use 1 to 2 tablets at bedtime donepezil (ARICEPT) 5 mg tablet TAKE 1 TABLET BY MOUTH EVERY DAY WITH BREAKFAST atorvastatin (LIPITOR) 40 mg tablet Take 1 tablet by mouth once daily. busPIRone (BUSPAR) 15 mg tablet Take 1 tablet by mouth two times a day. tamsulosin (FLOMAX) 0.4 mg Take 1 capsule by mouth daily at bedtime. Patient should start on April 02, 2024. Tadalafil (CIALIS) 10 mg tablet 1-2 tabs daily as needed albuterol HFA (VENTOLIN HFA) 90 mcg/actuation inhaler Inhale 2 Puffs as instructed every 4 hours as needed for wheezing/shortness of breath. MULTIVITAMIN ORAL Take by mouth once daily. polyethylene glycol 3350 (MIRALAX) 17 gram/dose powder 17g (1 scoop) with 8 oz daily as needed for constipation No current facility-administered medications for this visit. FAMILY HISTORY Problem Relation Age of Onset Heart Mother age 66, CA, SLE other (lupus) Mother diagnosed age 49 Heart Father age 84, CHF other (G6PD) Sister G6PD Diabetes Brother 1/2 brother Hypertension Brother 1/2 brother Colon Cancer Brother rectal cancer? 1/2 brother Social History Tobacco Use Smoking status: Former Current packs/day: 0.00 Average packs/day: 0.5 packs/day for 9.0 years (4.5 ttl pk-yrs) Types: Cigarettes Start date: 11/01/1967 Quit date: 10/31/1976 Years since quittin.0 Smokeless tobacco: Never Vaping Use Vaping status: Never Used Substance Use Topics Alcohol use: Yes Alcohol/week: 7.0 standard drinks of alcohol Types: 7 Glasses of wine per week Comment: daily Drug use: Not Currently Comment: marijuana use, has used inhalants REVIEW OF SYSTEMS GENERAL: No weight loss, + malaise, no fevers/ some chills HEENT: Negative for frequent or significant headaches, No changes in hearing or vision. Wears hearing aids NECK: Negative for lumps, goiter, pain and significant neck swelling RESPIRATORY: + cough, no hemoptysis, no wheezing, no dyspnea or shortness of breath CARDIOVASCULAR: Negative for chest pain, leg swelling, orthopnea, or palpitations GI: No nausea, vomiting, or diarrhea/constipation. No hematochezia/melena. : No history of dysuria, frequency or incontinence MUSCULOSKELETAL: All over aching in joints since sick . SKIN: Negative for lesions, rash, and itching ENDOCRINE: Negative for cold or heat intolerance, polyuria, polydipsia and goiter NEURO: No history of headaches, syncope, paralysis, seizures or tremors EXAM: BP 122/86 Pulse 66 Temp 37.2 C (99 F) (Right Tympanic) Wt 77.1 kg (170 lb) SpO2 100% BMI 25.10 kg/m PHYSICAL EXAM: Physical Exam Vitals reviewed. Constitutional: Appearance: Normal appearance. HENT: Head: Normocephalic. Right Ear: Ear canal and external ear normal. There is no impacted cerumen. Left Ear: Ear canal and external ear normal. There is no impacted cerumen. Ears: Comments: TM are both opaque Nose: Congestion and rhinorrhea present. Mouth/Throat: Pharynx: Oropharyngeal exudate and posterior oropharyngeal erythema present. Neck: Vascular: No carotid bruit. Cardiovascular: Rate and Rhythm: Normal rate and regular rhythm. Pulses: Normal pulses. Heart sounds: Normal heart sounds. Pulmonary: Effort: Pulmonary effort is normal. Breath sounds: Normal breath sounds. Abdominal: General: Bowel sounds are normal. Palpations: Abdomen is soft. Tenderness: There is no abdominal tenderness. There is no guarding or rebound. Musculoskeletal: General: Normal range of motion. Comments: Moves all ext. And walks w/o assistive device Lymphadenopathy: Cervical: No cervical adenopathy. Skin: General: Skin is warm and dry. Neurological: Mental Status: He is alert and oriented to person, place, and time. Psychiatric: Comments: Very flat affect Hallucinating from Nyquil over weekend LABS: ASSESSMENT/PLAN: 1. Acute maxillary sinusitis, recurrence not specified - ICD9: 461.0, ICD10: J01.00 (primary diagnosis) - Will begin treatment with Augmentin 875 mg PO BID for 10 days - AMOXICILLIN 875 MG-POTASSIUM CLAVULANATE 125 MG TABLET - Saline nasal spray frequently while on antibiotic 2. Mixed hyperlipidemia - ICD9: 272.2, ICD10: E78.2 - Controlled - Counseled on healthy diet and regular exercise 3. 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 COPD, mild (HCC) - ICD9: 496, ICD10: J44.9 Stable 5. Dementia with behavioral disturbance (HCC) - ICD9: 294.21, ICD10: F03.918 Some hallucinations over weekend with Nyquil Discussed treatment plan and patient voices understanding. Patient's questions answered appropriately. Medications and potential side effects were discussed and patient voices understanding. Return to the office as scheduled or as needed for worsening/no improvement. CARLO Cornell APRN.CNP documented in this encounter [facility] 10-24-2024 Note HNO ID: [id number] Author: ERUM BENNETT PA-C Service: ? Author Type: Physician Isotope Hydrologist Type: Progress Notes Filed: 10/24/2024 12:44 Note Text: This note was created using [employer]. Subjective Gaston Lainez is a 74 year old male. Patient is a 74-year-old male who complains of congestion and cough that he has been experiencing for the past 1 day. Patient denies fever, chills, myalgia, sinus pressure, ear pain or sore throat. Patient reports no dyspnea or SOB. Patient does have a history of pneumonia and is concerned for same. Patient has a remote history of asthma and stopped smoking in 1976. Review of Systems HENT: Positive for congestion. Respiratory: Positive for cough. All other systems reviewed and are negative. Objective BP 108/64 Pulse 80 Temp 37.3 ?C (99.2 ?F) Resp 16 Wt 78.6 kg (173 lb 4.5 oz) SpO2 97% BMI 25.59 kg/m? Physical Exam Vitals and nursing note reviewed. Constitutional: Appearance: Normal appearance. He is normal weight. HENT: Head: Normocephalic and atraumatic. Right Ear: Tympanic membrane, ear canal and external ear normal. Left Ear: Tympanic membrane, ear canal and external ear normal. Nose: Nose normal. Mouth/Throat: Mouth: Mucous membranes are moist. Pharynx: Oropharynx is clear. Eyes: Extraocular Movements: Extraocular movements intact. Conjunctiva/sclera: Conjunctivae normal. Pupils: Pupils are equal, round, and reactive to light. Cardiovascular: Rate and Rhythm: Normal rate and regular rhythm. Pulses: Normal pulses. Heart sounds: Normal heart sounds. Pulmonary: Effort: Pulmonary effort is normal. Breath sounds: Normal breath sounds. Musculoskeletal: Cervical back: Normal range of motion and neck supple. Skin: General: Skin is warm and dry. Capillary Refill: Capillary refill takes less than 2 seconds. Neurological: General: No focal deficit present. Mental Status: He is alert and oriented to person, place, and time. Psychiatric: Mood and Affect: Mood normal. Behavior: Behavior normal. Thought Content: Thought content normal. Judgment: Judgment normal. Assessment and Plan Unremarkable physical exam findings as noted above. Patient was provided with a prescription for Tessalon 100 mg and supportive care instructions were discussed. Patient and his express excellent understanding of same. CLINICAL IMPRESSION: Acute URI ASSESSMENT/PLAN: 1. Acute URI - ICD9: 465.9, ICD10: J06.9 - BENZONATATE 100 MG CAPSULE Erum Bennett PA-C [facility] 10-24-2024 History of Present illness Narrative This note was created using [employer]. Subjective Gaston Lainez is a 74 year old male. Patient is a 74-year-old male who complains of congestion and cough that he has been experiencing for the past 1 day. Patient denies fever, chills, myalgia, sinus pressure, ear pain or sore throat. Patient reports no dyspnea or SOB. Patient does have a history of pneumonia and is concerned for same. Patient has a remote history of asthma and stopped smoking in 1976. Review of Systems HENT: Positive for congestion. Respiratory: Positive for cough. All other systems reviewed and are negative. Objective BP 108/64 Pulse 80 Temp 37.3 C (99.2 F) Resp 16 Wt 78.6 kg (173 lb 4.5 oz) SpO2 97% BMI 25.59 kg/m Physical Exam Vitals and nursing note reviewed. Constitutional: Appearance: Normal appearance. He is normal weight. HENT: Head: Normocephalic and atraumatic. Right Ear: Tympanic membrane, ear canal and external ear normal. Left Ear: Tympanic membrane, ear canal and external ear normal. Nose: Nose normal. Mouth/Throat: Mouth: Mucous membranes are moist. Pharynx: Oropharynx is clear. Eyes: Extraocular Movements: Extraocular movements intact. Conjunctiva/sclera: Conjunctivae normal. Pupils: Pupils are equal, round, and reactive to light. Cardiovascular: Rate and Rhythm: Normal rate and regular rhythm. Pulses: Normal pulses. Heart sounds: Normal heart sounds. Pulmonary: Effort: Pulmonary effort is normal. Breath sounds: Normal breath sounds. Musculoskeletal: Cervical back: Normal range of motion and neck supple. Skin: General: Skin is warm and dry. Capillary Refill: Capillary refill takes less than 2 seconds. Neurological: General: No focal deficit present. Mental Status: He is alert and oriented to person, place, and time. Psychiatric: Mood and Affect: Mood normal. Behavior: Behavior normal. Thought Content: Thought content normal. Judgment: Judgment normal. Assessment and Plan Unremarkable physical exam findings as noted above. Patient was provided with a prescription for Tessalon 100 mg and supportive care instructions were discussed. Patient and his express excellent understanding of same. CLINICAL IMPRESSION: Acute URI ASSESSMENT/PLAN: 1. Acute URI - ICD9: 465.9, ICD10: J06.9 - BENZONATATE 100 MG CAPSULE Erum Bennett PA-C documented in this encounter [facility] 09-27-2024 Telephone encounter Note The following approved medication requests have been transmitted electronically. Requested Prescriptions Pending Prescriptions Disp Refills fluticasone-salmeterol (WIXELA INHUB) 250-50 mcg/dose inhaler 3 Each 3 Sig: Inhale 1 Puff as instructed two times a day. Leticia Harding APRN.CNP [facility] 09-27-2024 Miscellaneous Notes The following approved medication requests have been transmitted electronically. Requested Prescriptions Pending Prescriptions Disp Refills fluticasone-salmeterol (WIXELA INHUB) 250-50 mcg/dose inhaler 3 Each 3 Sig: Inhale 1 Puff as instructed two times a day. Leticia Harding APRN.CNP Prescription Refill Information The patient has been identified by name and date of : Yes Caregiver verified no other encounters exist for this prescription request: Yes Caregiver confirmed with patient/requestor that no other refills are due, in the near future, with this provider at this time: Yes The last office visit in the department: 09.10.24 Does the patient have a future office visit with this provider/department: Yes Requested Prescriptions Pending Prescriptions Disp Refills fluticasone-salmeterol (WIXELA INHUB) 250-50 mcg/dose inhaler 3 Each 3 Sig: Inhale 1 Puff as instructed two times a day. Sulema Aguiar [facility] September 26, 2024 2:34 PM documented in this encounter [facility] 09-26-2024 Telephone encounter Note Prescription Refill Information The patient has been identified by name and date of : Yes Caregiver verified no other encounters exist for this prescription request: Yes Caregiver confirmed with patient/requestor that no other refills are due, in the near future, with this provider at this time: Yes The last office visit in the department: 09.10.24 Does the patient have a future office visit with this provider/department: Yes Requested Prescriptions Pending Prescriptions Disp Refills fluticasone-salmeterol (WIXELA INHUB) 250-50 mcg/dose inhaler 3 Each 3 Sig: Inhale 1 Puff as instructed two times a day. Sulema Aguiar [facility] September 26, 2024 2:34 PM [facility] 09-17-2024 Telephone encounter Note The following approved medication requests have been transmitted electronically. Requested Prescriptions Signed Prescriptions Disp Refills memantine (NAMENDA) 10 mg tablet 180 tablet 1 Sig: Take 1 tablet by mouth two times a day. Authorizing Provider: SHAWANDA HALE APRN.CNP [facility] 09-17-2024 Miscellaneous Notes The following approved medication requests have been transmitted electronically. Requested Prescriptions Signed Prescriptions Disp Refills memantine (NAMENDA) 10 mg tablet 180 tablet 1 Sig: Take 1 tablet by mouth two times a day. Authorizing Provider: SHAWANDA HALE APRN.PROMOTIONS REPRESENTATIVE documented in this encounter [facility] 09-14-2024 Note HNO ID: [id number] Author: GLORIA MORROW MD Service: ? Author Type: Physician Type: Progress Notes Filed: 09/14/2024 08:15 Note Text: Patient presents with: Mass: Lump in groin area x 4 days HPI: Skin Lesion: Location: Right groin Duration: probably a few days, mentioned to yesterday Pruritis/Pain: not really tender Change: Drainage/blister/pustule/ulceration: had some drainage when wiped with alcohol Treatment: none MEDICATIONS: OLANZapine (ZYPREXA) 2.5 mg tablet use 1 to 2 tablets at bedtime meloxicam (MOBIC) 15 mg tablet Take 1 tablet by mouth once daily. donepezil (ARICEPT) 5 mg tablet TAKE 1 TABLET BY MOUTH EVERY DAY WITH BREAKFAST memantine (NAMENDA) 10 mg tablet Take 1 tablet by mouth two times a day. Week One: take 1/2 tablet (5mg) in the morning Week Two: take 1/2 tablet (5mg) in the morning and take 1/2 tablet (5mg) in the evening Week Three: take 1 tablet (10mg) in the morning and take 1/2 tablet (5mg) in the evening Week Four: take 1 tablet (10mg) in the morning and take 1 tablet (10mg) in the evening -this is the full dose (Patient taking differently: Take 10 mg by mouth two times a day.) atorvastatin (LIPITOR) 40 mg tablet Take 1 tablet by mouth once daily. busPIRone (BUSPAR) 15 mg tablet Take 1 tablet by mouth two times a day. tamsulosin (FLOMAX) 0.4 mg Take 1 capsule by mouth daily at bedtime. Patient should start on April 02, 2024. Tadalafil (CIALIS) 10 mg tablet 1-2 tabs daily as needed fluticasone-salmeterol (WIXELA INHUB) 250-50 mcg/dose inhaler Inhale 1 Puff as instructed two times a day. albuterol HFA (VENTOLIN HFA) 90 mcg/actuation inhaler Inhale 2 Puffs as instructed every 4 hours as needed for wheezing/shortness of breath. MULTIVITAMIN ORAL Take by mouth once daily. polyethylene glycol 3350 (MIRALAX) 17 gram/dose powder 17g (1 scoop) with 8 oz daily as needed for constipation sulfamethoxazole-trimethoprim (BACTRIM DS) 800-160 mg per tablet Take 1 tablet by mouth two times a day for 5 days. ALLERGIES: ALLERGIES No Known Allergies VITALS: BP 120/84 Pulse 73 Temp 36.3 ?C (97.3 ?F) Resp 21 Wt 78.2 kg (172 lb 6.4 oz) SpO2 99% BMI 25.46 kg/m? PE: Pleasant, in no acute distress. Accompanied by his . : right perineal-scrotal junction mass which is uncomfortable with palpation. There is 1.5cm ulceration with serosanguinous drainage. The 3cm x 2cm subcutaneous mass feels somewhat purulent. There is little superficial erythema. ASSESSMENT/PLAN: 1. Abscess of groin, right - ICD9: 682.2, ICD10: L02.214 Start - SULFAMETHOXAZOLE 800 MG-TRIMETHOPRIM 160 MG TABLET The lesion does not seem readily drainable today. He should be followed for improvement and confirm this is a simple abscess without ulcerating neoplasm. - CONSULT TO GENERAL SURGERY (may follow up with primary care for wound check if unable to get an appointment next week). - BACTERIAL CULTURE AND GRAM STAIN, ABSCESS AND WOUND (AEROBIC CULTURE) Gloria Morrow MD [facility] 09-14-2024 History of Present illness Narrative Patient presents with: Mass: Lump in groin area x 4 days HPI: Skin Lesion: Location: Right groin Duration: probably a few days, mentioned to yesterday Pruritis/Pain: not really tender Change: Drainage/blister/pustule/ulceration: had some drainage when wiped with alcohol Treatment: none MEDICATIONS: OLANZapine (ZYPREXA) 2.5 mg tablet use 1 to 2 tablets at bedtime meloxicam (MOBIC) 15 mg tablet Take 1 tablet by mouth once daily. donepezil (ARICEPT) 5 mg tablet TAKE 1 TABLET BY MOUTH EVERY DAY WITH BREAKFAST memantine (NAMENDA) 10 mg tablet Take 1 tablet by mouth two times a day. Week One: take 1/2 tablet (5mg) in the morning Week Two: take 1/2 tablet (5mg) in the morning and take 1/2 tablet (5mg) in the evening Week Three: take 1 tablet (10mg) in the morning and take 1/2 tablet (5mg) in the evening Week Four: take 1 tablet (10mg) in the morning and take 1 tablet (10mg) in the evening -this is the full dose (Patient taking differently: Take 10 mg by mouth two times a day.) atorvastatin (LIPITOR) 40 mg tablet Take 1 tablet by mouth once daily. busPIRone (BUSPAR) 15 mg tablet Take 1 tablet by mouth two times a day. tamsulosin (FLOMAX) 0.4 mg Take 1 capsule by mouth daily at bedtime. Patient should start on April 02, 2024. Tadalafil (CIALIS) 10 mg tablet 1-2 tabs daily as needed fluticasone-salmeterol (WIXELA INHUB) 250-50 mcg/dose inhaler Inhale 1 Puff as instructed two times a day. albuterol HFA (VENTOLIN HFA) 90 mcg/actuation inhaler Inhale 2 Puffs as instructed every 4 hours as needed for wheezing/shortness of breath. MULTIVITAMIN ORAL Take by mouth once daily. polyethylene glycol 3350 (MIRALAX) 17 gram/dose powder 17g (1 scoop) with 8 oz daily as needed for constipation sulfamethoxazole-trimethoprim (BACTRIM DS) 800-160 mg per tablet Take 1 tablet by mouth two times a day for 5 days. ALLERGIES: ALLERGIES No Known Allergies VITALS: BP 120/84 Pulse 73 Temp 36.3 C (97.3 F) Resp 21 Wt 78.2 kg (172 lb 6.4 oz) SpO2 99% BMI 25.46 kg/m PE: Pleasant, in no acute distress. Accompanied by his . : right perineal-scrotal junction mass which is uncomfortable with palpation. There is 1.5cm ulceration with serosanguinous drainage. The 3cm x 2cm subcutaneous mass feels somewhat purulent. There is little superficial erythema. ASSESSMENT/PLAN: 1. Abscess of groin, right - ICD9: 682.2, ICD10: L02.214 Start - SULFAMETHOXAZOLE 800 MG-TRIMETHOPRIM 160 MG TABLET The lesion does not seem readily drainable today. He should be followed for improvement and confirm this is a simple abscess without ulcerating neoplasm. - CONSULT TO GENERAL SURGERY (may follow up with primary care for wound check if unable to get an appointment next week). - BACTERIAL CULTURE AND GRAM STAIN, ABSCESS AND WOUND (AEROBIC CULTURE) Gloria Morrow MD documented in this encounter [facility] 09-11-2024 Telephone encounter Note Prescription Refill Information The patient has been identified by name and date of : Yes Caregiver verified no other encounters exist for this prescription request: Yes Caregiver confirmed with patient/requestor that no other refills are due, in the near future, with this provider at this time: Yes The last office visit in the department: 07/10/24 Does the patient have a future office visit with this provider/department: Yes 10/02/24 Requested Prescriptions Pending Prescriptions Disp Refills OLANZapine (ZYPREXA) 2.5 mg tablet 180 tablet 2 Sig: use 1 to 2 tablets at bedtime Tita Burger LPN September 11, 2024 1:35 PM [facility] 09-11-2024 Miscellaneous Notes Prescription Refill Information The patient has been identified by name and date of : Yes Caregiver verified no other encounters exist for this prescription request: Yes Caregiver confirmed with patient/requestor that no other refills are due, in the near future, with this provider at this time: Yes The last office visit in the department: 07/10/24 Does the patient have a future office visit with this provider/department: Yes 10/02/24 Requested Prescriptions Pending Prescriptions Disp Refills OLANZapine (ZYPREXA) 2.5 mg tablet 180 tablet 2 Sig: use 1 to 2 tablets at bedtime Tita Burger LPN September 11, 2024 1:35 PM documented in this encounter [facility] 09-10-2024 Instructions Leticia Harding APRN.CNP - 09/10/2024 3:00 PM EST 1) See you October 29 as scheduled documented in this encounter [facility] 09-10-2024 Note HNO ID: [id number] Author: LETICIA HARDING APRN.CNP Service: ? Author Type: Clinical Nurse Specialist Type: Progress Notes Filed: 09/10/2024 15:01 Note Text: This is a 73 year old male who presents today with: Patient presents with: Pneumonia: Follow up HISTORY OF PRESENT ILLNESS: Gaston Lainez is a 73 year old male. Patient presents with: Pneumonia: Follow up Feeling better Less cough Much more energy No headaches No body aches PAST MEDICAL HISTORY: PAST MEDICAL HISTORY Diagnosis Date Abnormal stress echocardiogram 01/14/2021 01/21/[address] Barragan: right dominant. LMT min luminal, LAD mild diffuse, LCx mild luminal with large caliber nondominant vessel extending into a single large obtuse marginal branch, proximal vessel is mildly calcified +mild luminal irreg, RCA 40% Large-caliber dominant vessel: moderate calcification from the proximal to mid vessel, mild diffuse ectatic disease proximal.The ostium of the Anxiety state, unspecified 10/24/2007 Benign paroxysmal positional vertigo one remote episode Bunion Chronic obstructive asthma, unspecified 10/24/2007 Depression likely bipolar disorder Depressive disorder, not elsewhere classified 10/24/2007 Generalized anxiety disorder 10/24/2007 History of marijuana use 03/02/2016 Quit 08/2015 Hypermobility syndrome Mild coronary artery disease Mixed hyperlipidemia 11/27/2008 Nontraumatic rupture of tendons of biceps (long head) R, 10/07 L OCD (obsessive compulsive disorder) Pneumonia, organism unspecified(486) 11/2001 bilateral: cleared Primary insomnia 03/02/2016 Senile dementia (HCC) 2022 PAST SURGICAL HISTORY Procedure Laterality Date COLONOSCOPY FLX DX W/COLLJ SPEC WHEN PFRMD 09/21/2006 repeat due 2016 COLONOSCOPY FLX DX W/COLLJ SPEC WHEN PFRMD 04/22/2020 Colonoscopy COLSC FLX W/RMVL OF TUMOR POLYP LESION SNARE TQ 04/19/2017 2 adenomatous polyps - ESOPHAGOGASTRODUODENOSCOPY TRANSORAL DIAGNOSTIC 07/23/2019 EGD EXCISION OF BENIGN LESION GREATER THAN 1.25 CM 03/29/2000 tongue and lip lesions: fibroma; nose: sebaceous hyperplasia PAST SURGICAL HISTORY OF repair flexor tendon left thumb PAST SURGICAL HISTORY OF Left 09/03/2019 Dr. medina [facility]: left CTR and tenosynovectomy at wrist level PAST SURGICAL HISTORY OF Left 04/29/2021 Left median nerve release at the elbow and forearm, Dontae Medina MD, [facility] ROTATOR CUFF REPAIR 2008 left ROTATOR CUFF REPAIR 04/22/2016 right VASECTOMY UNI/BI SPX W/POSTOP SEMEN EXAMS ALLERGIES Patient has no known allergies. MEDICATIONS Current Outpatient Medications Medication Sig meloxicam (MOBIC) 15 mg tablet Take 1 tablet by mouth once daily. donepezil (ARICEPT) 5 mg tablet TAKE 1 TABLET BY MOUTH EVERY DAY WITH BREAKFAST memantine (NAMENDA) 10 mg tablet Take 1 tablet by mouth two times a day. Week One: take 1/2 tablet (5mg) in the morning Week Two: take 1/2 tablet (5mg) in the morning and take 1/2 tablet (5mg) in the evening Week Three: take 1 tablet (10mg) in the morning and take 1/2 tablet (5mg) in the evening Week Four: take 1 tablet (10mg) in the morning and take 1 tablet (10mg) in the evening -this is the full dose (Patient taking differently: Take 10 mg by mouth two times a day.) atorvastatin (LIPITOR) 40 mg tablet Take 1 tablet by mouth once daily. busPIRone (BUSPAR) 15 mg tablet Take 1 tablet by mouth two times a day. tamsulosin (FLOMAX) 0.4 mg Take 1 capsule by mouth daily at bedtime. Patient should start on April 02, 2024. Tadalafil (CIALIS) 10 mg tablet 1-2 tabs daily as needed OLANZapine (ZYPREXA) 2.5 mg tablet use 1 to 2 tablets at bedtime fluticasone-salmeterol (WIXELA INHUB) 250-50 mcg/dose inhaler Inhale 1 Puff as instructed two times a day. albuterol HFA (VENTOLIN HFA) 90 mcg/actuation inhaler Inhale 2 Puffs as instructed every 4 hours as needed for wheezing/shortness of breath. MULTIVITAMIN ORAL Take by mouth once daily. polyethylene glycol 3350 (MIRALAX) 17 gram/dose powder 17g (1 scoop) with 8 oz daily as needed for constipation benzonatate (TESSALON PERLE) 100 mg capsule Take 1 capsule by mouth three times a day as needed for cough for up to 15 days. (Patient not taking: Reported on 09/10/2024) No current facility-administered medications for this visit. FAMILY HISTORY Problem Relation Age of Onset Heart Mother age 66, CA, SLE other (lupus) Mother diagnosed age 49 Heart Father age 84, CHF other (G6PD) Sister G6PD Diabetes Brother 1/2 brother Hypertension Brother 1/2 brother Colon Cancer Brother rectal cancer? 1/2 brother Social History Tobacco Use Smoking status: Former Current packs/day: 0.00 Average packs/day: 0.5 packs/day for 9.0 years (4.5 ttl pk-yrs) Types: Cigarettes Start date: 11/01/1967 Quit date: 10/31/1976 Years since quittin.8 Smokeless tobacco: Never Vaping Use Vaping status: Never Used Hinds (more content not included)... [facility] 09-10-2024 History of Present illness Narrative This is a 73 year old male who presents today with: Patient presents with: Pneumonia: Follow up HISTORY OF PRESENT ILLNESS: Gaston Lainez is a 73 year old male. Patient presents with: Pneumonia: Follow up Feeling better Less cough Much more energy No headaches No body aches PAST MEDICAL HISTORY: PAST MEDICAL HISTORY Diagnosis Date Abnormal stress echocardiogram 01/14/2021 01/21/[address] Yung: right dominant. LMT min luminal, LAD mild diffuse, LCx mild luminal with large caliber nondominant vessel extending into a single large obtuse marginal branch, proximal vessel is mildly calcified +mild luminal irreg, RCA 40% Large-caliber dominant vessel: moderate calcification from the proximal to mid vessel, mild diffuse ectatic disease proximal.The ostium of the Anxiety state, unspecified 10/24/2007 Benign paroxysmal positional vertigo one remote episode Bunion Chronic obstructive asthma, unspecified 10/24/2007 Depression likely bipolar disorder Depressive disorder, not elsewhere classified 10/24/2007 Generalized anxiety disorder 10/24/2007 History of marijuana use 03/02/2016 Quit 08/2015 Hypermobility syndrome Mild coronary artery disease Mixed hyperlipidemia 11/27/2008 Nontraumatic rupture of tendons of biceps (long head) R, 10/07 L OCD (obsessive compulsive disorder) Pneumonia, organism unspecified(486) 11/2001 bilateral: cleared Primary insomnia 03/02/2016 Senile dementia (HCC) 2022 PAST SURGICAL HISTORY Procedure Laterality Date COLONOSCOPY FLX DX W/COLLJ SPEC WHEN PFRMD 09/21/2006 repeat due 2016 COLONOSCOPY FLX DX W/COLLJ SPEC WHEN PFRMD 04/22/2020 Colonoscopy COLSC FLX W/RMVL OF TUMOR POLYP LESION SNARE TQ 04/19/2017 2 adenomatous polyps - ESOPHAGOGASTRODUODENOSCOPY TRANSORAL DIAGNOSTIC 07/23/2019 EGD EXCISION OF BENIGN LESION GREATER THAN 1.25 CM 03/29/2000 tongue and lip lesions: fibroma; nose: sebaceous hyperplasia PAST SURGICAL HISTORY OF repair flexor tendon left thumb PAST SURGICAL HISTORY OF Left 09/03/2019 Dr. medina [facility]: left CTR and tenosynovectomy at wrist level PAST SURGICAL HISTORY OF Left 04/29/2021 Left median nerve release at the elbow and forearm, Dontae Medina MD, [facility] ROTATOR CUFF REPAIR 2008 left ROTATOR CUFF REPAIR 04/22/2016 right VASECTOMY UNI/BI SPX W/POSTOP SEMEN EXAMS ALLERGIES Patient has no known allergies. MEDICATIONS Current Outpatient Medications Medication Sig meloxicam (MOBIC) 15 mg tablet Take 1 tablet by mouth once daily. donepezil (ARICEPT) 5 mg tablet TAKE 1 TABLET BY MOUTH EVERY DAY WITH BREAKFAST memantine (NAMENDA) 10 mg tablet Take 1 tablet by mouth two times a day. Week One: take 1/2 tablet (5mg) in the morning Week Two: take 1/2 tablet (5mg) in the morning and take 1/2 tablet (5mg) in the evening Week Three: take 1 tablet (10mg) in the morning and take 1/2 tablet (5mg) in the evening Week Four: take 1 tablet (10mg) in the morning and take 1 tablet (10mg) in the evening -this is the full dose (Patient taking differently: Take 10 mg by mouth two times a day.) atorvastatin (LIPITOR) 40 mg tablet Take 1 tablet by mouth once daily. busPIRone (BUSPAR) 15 mg tablet Take 1 tablet by mouth two times a day. tamsulosin (FLOMAX) 0.4 mg Take 1 capsule by mouth daily at bedtime. Patient should start on April 02, 2024. Tadalafil (CIALIS) 10 mg tablet 1-2 tabs daily as needed OLANZapine (ZYPREXA) 2.5 mg tablet use 1 to 2 tablets at bedtime fluticasone-salmeterol (WIXELA INHUB) 250-50 mcg/dose inhaler Inhale 1 Puff as instructed two times a day. albuterol HFA (VENTOLIN HFA) 90 mcg/actuation inhaler Inhale 2 Puffs as instructed every 4 hours as needed for wheezing/shortness of breath. MULTIVITAMIN ORAL Take by mouth once daily. polyethylene glycol 3350 (MIRALAX) 17 gram/dose powder 17g (1 scoop) with 8 oz daily as needed for constipation benzonatate (TESSALON PERLE) 100 mg capsule Take 1 capsule by mouth three times a day as needed for cough for up to 15 days. (Patient not taking: Reported on 09/10/2024) No current facility-administered medications for this visit. FAMILY HISTORY Problem Relation Age of Onset Heart Mother age 66, CA, SLE other (lupus) Mother diagnosed age 49 Heart Father age 84, CHF other (G6PD) Sister G6PD Diabetes Brother 1/2 brother Hypertension Brother 1/2 brother Colon Cancer Brother rectal cancer? 1/2 brother Social History Tobacco Use Smoking status: Former Current packs/day: 0.00 Average packs/day: 0.5 packs/day for 9.0 years (4.5 ttl pk-yrs) Types: Cigarettes Start date: 11/01/1967 Quit date: 10/31/1976 Years since quittin.8 Smokeless tobacco: Never Vaping Use Vaping status: Never Used Substance Use Topics Alcohol use: Yes Alcohol/week: 7.0 standard drinks of alcohol Types: 7 Glasses of wine per week Comment: daily Drug use: Not Currently Comment: marijuana use, has used inhalants EXAM: BP 126/78 Pulse 72 Temp 37.2 C (98.9 F) (Temporal Artery) Wt 81.6 kg (180 lb) SpO2 96% BMI 26.58 kg/m PHYSICAL EXAM: General Appearance: well appearing, alert and oriented.. Lungs: Chest rise & fall symmetrical, Lungs clear to auscultation. No wheezing or rhonchi. No rales. Heart: S1S2, no gallop, no rub, no murmur Lymph Nodes: no lymphadenopathy. Ext: walks w/o assistive device LABS: ASSESSMENT/PLAN: 1. Pneumonia of right lower lobe due to infectious organism - ICD9: 486, ICD10: J18.9 - Resolved Discussed treatment plan and patient voices understanding. Patient's questions answered appropriately. Medications and potential side effects were discussed and patient voices understanding. Return to the office as scheduled or as needed for worsening/no improvement. Leticia Harding APRN.PROMOTIONS REPRESENTATIVE documented in this encounter [facility] 09-05-2024 Instructions Luis Eduardo Rico PA-C - 09/05/2024 1:24 PM EST Images from the original note were not included. IT BAND STRETCHES Iliotibial Band abductors Cross left leg over right leg. Bend left knee slightly. Lean to the left until stretch is felt over outside of right hip. Repeat on other side. External Rotators Keeping the shoulders flat on the floor, pull the upper leg toward the floor until stretch is felt. Repeat on other side. Iliotibial Band Cross the right leg behind the left leg. Lean your right hip toward the wall while bending the left knee and keeping the right knee straight. Hold. Repeat on other side. Iliotibial Band Lying on your unaffected side, slowly lift your top leg backward and stretch it down off the bed/table. Do not allow your leg to rotate backward. documented in this encounter [facility] 09-05-2024 Note HNO ID: [id number] Author: LUIS EDUARDO RICO PA-C Service: ? Author Type: Physician Isotope Hydrologist Type: Progress Notes Filed: 09/05/2024 13:38 Note Text: HISTORY OF PRESENT ILLNESS: Gaston is a 73 year old male. He is here for evaluation of Left hip pain. Patient has had recent pneumonia with decreased activity and immobility. He reports on and off pain for 2-3 weeks, but the last 3 days have been more consistently painful. Has been using tylenol and ibuprofen with good pain control. Recovering well from pneumonia with one day left of antibiotics. Denies groin pain, numbness and tingling to LLE. No other concerns today. Injury:No Pain: Yes LOCATION: lateral left hip PAIN SCALE: 7 on a scale of 0-10 PAIN CHARACTER: sharp DURATION: (How long have you had the pain?) 3 days AGGRAVATING FACTORS: activity, arising from a sitting position, and lying ALLEVIATING FACTORS: medications - NSAIDs Onset: gradual and progressive Quality:sharp Swelling: Patient does not note any swelling of the joint. Radicular Symptoms:No Activities: walking Restriction: none Progression: Constant Previous treatment: medication (Ibuprofen and Tylenol) PT:No physical therapy program has been initiated. MEDICATIONS Current Outpatient Medications on File Prior to Visit Medication Sig levoFLOXacin (LEVAQUIN) 750 mg tablet Take 1 tablet by mouth once daily for 7 days. benzonatate (TESSALON PERLE) 100 mg capsule Take 1 capsule by mouth three times a day as needed for cough for up to 15 days. donepezil (ARICEPT) 5 mg tablet TAKE 1 TABLET BY MOUTH EVERY DAY WITH BREAKFAST memantine (NAMENDA) 10 mg tablet Take 1 tablet by mouth two times a day. Week One: take 1/2 tablet (5mg) in the morning Week Two: take 1/2 tablet (5mg) in the morning and take 1/2 tablet (5mg) in the evening Week Three: take 1 tablet (10mg) in the morning and take 1/2 tablet (5mg) in the evening Week Four: take 1 tablet (10mg) in the morning and take 1 tablet (10mg) in the evening -this is the full dose (Patient taking differently: Take 10 mg by mouth two times a day.) atorvastatin (LIPITOR) 40 mg tablet Take 1 tablet by mouth once daily. busPIRone (BUSPAR) 15 mg tablet Take 1 tablet by mouth two times a day. tamsulosin (FLOMAX) 0.4 mg Take 1 capsule by mouth daily at bedtime. Patient should start on April 02, 2024. Tadalafil (CIALIS) 10 mg tablet 1-2 tabs daily as needed OLANZapine (ZYPREXA) 2.5 mg tablet use 1 to 2 tablets at bedtime fluticasone-salmeterol (WIXELA INHUB) 250-50 mcg/dose inhaler Inhale 1 Puff as instructed two times a day. albuterol HFA (VENTOLIN HFA) 90 mcg/actuation inhaler Inhale 2 Puffs as instructed every 4 hours as needed for wheezing/shortness of breath. MULTIVITAMIN ORAL Take by mouth once daily. polyethylene glycol 3350 (MIRALAX) 17 gram/dose powder 17g (1 scoop) with 8 oz daily as needed for constipation No current facility-administered medications on file prior to visit. ALLERGIES ALLERGIES No Known Allergies PAST MEDICAL HISTORY PAST MEDICAL HISTORY Diagnosis Date Abnormal stress echocardiogram 01/14/2021 01/21/[address] Barragan: right dominant. LMT min luminal, LAD mild diffuse, LCx mild luminal with large caliber nondominant vessel extending into a single large obtuse marginal branch, proximal vessel is mildly calcified +mild luminal irreg, RCA 40% Large-caliber dominant vessel: moderate calcification from the proximal to mid vessel, mild diffuse ectatic disease proximal.The ostium of the Anxiety state, unspecified 10/24/2007 Benign paroxysmal positional vertigo one remote episode Bunion Chronic obstructive asthma, unspecified 10/24/2007 Depression likely bipolar disorder Depressive disorder, not elsewhere classified 10/24/2007 Generalized anxiety disorder 10/24/2007 History of marijuana use 03/02/2016 Quit 08/2015 Hypermobility syndrome Mild coronary artery disease Mixed hyperlipidemia 11/27/2008 Nontraumatic rupture of tendons of biceps (long head) R, 10/07 L OCD (obsessive compulsive disorder) Pneumonia, organism unspecified(486) 11/2001 bilateral: cleared Primary insomnia 03/02/2016 Senile dementia (HCC) 2022 PAST SURGICAL HISTORY PAST SURGICAL HISTORY Procedure Laterality Date COLONOSCOPY FLX DX W/COLLJ SPEC WHEN PFRMD 09/21/2006 repeat due 2017 COLONOSCOPY FLX DX W/COLLJ SPEC WHEN PFRMD 04/22/2020 Colonoscopy COLSC FLX W/RMVL OF TUMOR POLYP LESION SNARE TQ 04/19/2017 2 adenomatous polyps - ESOPHAGOGASTRODUODENOSCOPY TRANSORAL DIAGNOSTIC 07/23/2019 EGD EXCISION OF BENIGN LESION GREATER THAN 1.25 CM 03/29/2000 tongue and lip lesions: fibroma; nose: sebaceous hyperplasia PAST SURGICAL HISTORY OF repair flexor tendon left thumb PAST SURGICAL HISTORY OF Left 09/03/2019 Dr. medina [facility]: left CTR and tenosynovectomy at wrist level PAST SURGICAL HISTORY OF Left 04/29/2021 Left median nerve release at the elbow an (more content not included)... [facility] 09-05-2024 History of Present illness Narrative HISTORY OF PRESENT ILLNESS: Gaston is a 73 year old male. He is here for evaluation of Left hip pain. Patient has had recent pneumonia with decreased activity and immobility. He reports on and off pain for 2-3 weeks, but the last 3 days have been more consistently painful. Has been using tylenol and ibuprofen with good pain control. Recovering well from pneumonia with one day left of antibiotics. Denies groin pain, numbness and tingling to LLE. No other concerns today. Injury:No Pain: Yes LOCATION: lateral left hip PAIN SCALE: 7 on a scale of 0-10 PAIN CHARACTER: sharp DURATION: (How long have you had the pain?) 3 days AGGRAVATING FACTORS: activity, arising from a sitting position, and lying ALLEVIATING FACTORS: medications - NSAIDs Onset: gradual and progressive Quality:sharp Swelling: Patient does not note any swelling of the joint. Radicular Symptoms:No Activities: walking Restriction: none Progression: Constant Previous treatment: medication (Ibuprofen and Tylenol) PT:No physical therapy program has been initiated. MEDICATIONS Current Outpatient Medications on File Prior to Visit Medication Sig levoFLOXacin (LEVAQUIN) 750 mg tablet Take 1 tablet by mouth once daily for 7 days. benzonatate (TESSALON PERLE) 100 mg capsule Take 1 capsule by mouth three times a day as needed for cough for up to 15 days. donepezil (ARICEPT) 5 mg tablet TAKE 1 TABLET BY MOUTH EVERY DAY WITH BREAKFAST memantine (NAMENDA) 10 mg tablet Take 1 tablet by mouth two times a day. Week One: take 1/2 tablet (5mg) in the morning Week Two: take 1/2 tablet (5mg) in the morning and take 1/2 tablet (5mg) in the evening Week Three: take 1 tablet (10mg) in the morning and take 1/2 tablet (5mg) in the evening Week Four: take 1 tablet (10mg) in the morning and take 1 tablet (10mg) in the evening -this is the full dose (Patient taking differently: Take 10 mg by mouth two times a day.) atorvastatin (LIPITOR) 40 mg tablet Take 1 tablet by mouth once daily. busPIRone (BUSPAR) 15 mg tablet Take 1 tablet by mouth two times a day. tamsulosin (FLOMAX) 0.4 mg Take 1 capsule by mouth daily at bedtime. Patient should start on April 02, 2024. Tadalafil (CIALIS) 10 mg tablet 1-2 tabs daily as needed OLANZapine (ZYPREXA) 2.5 mg tablet use 1 to 2 tablets at bedtime fluticasone-salmeterol (WIXELA INHUB) 250-50 mcg/dose inhaler Inhale 1 Puff as instructed two times a day. albuterol HFA (VENTOLIN HFA) 90 mcg/actuation inhaler Inhale 2 Puffs as instructed every 4 hours as needed for wheezing/shortness of breath. MULTIVITAMIN ORAL Take by mouth once daily. polyethylene glycol 3350 (MIRALAX) 17 gram/dose powder 17g (1 scoop) with 8 oz daily as needed for constipation No current facility-administered medications on file prior to visit. ALLERGIES ALLERGIES No Known Allergies PAST MEDICAL HISTORY PAST MEDICAL HISTORY Diagnosis Date Abnormal stress echocardiogram 01/14/2021 01/21/[address] Barragan: right dominant. LMT min luminal, LAD mild diffuse, LCx mild luminal with large caliber nondominant vessel extending into a single large obtuse marginal branch, proximal vessel is mildly calcified +mild luminal irreg, RCA 40% Large-caliber dominant vessel: moderate calcification from the proximal to mid vessel, mild diffuse ectatic disease proximal.The ostium of the Anxiety state, unspecified 10/24/2007 Benign paroxysmal positional vertigo one remote episode Bunion Chronic obstructive asthma, unspecified 10/24/2007 Depression likely bipolar disorder Depressive disorder, not elsewhere classified 10/24/2007 Generalized anxiety disorder 10/24/2007 History of marijuana use 03/02/2016 Quit 08/2015 Hypermobility syndrome Mild coronary artery disease Mixed hyperlipidemia 11/27/2008 Nontraumatic rupture of tendons of biceps (long head) R, 10/07 L OCD (obsessive compulsive disorder) Pneumonia, organism unspecified(486) 11/2001 bilateral: cleared Primary insomnia 03/02/2016 Senile dementia (HCC) 2022 PAST SURGICAL HISTORY PAST SURGICAL HISTORY Procedure Laterality Date COLONOSCOPY FLX DX W/COLLJ SPEC WHEN PFRMD 09/21/2006 repeat due 2016 COLONOSCOPY FLX DX W/COLLJ SPEC WHEN PFRMD 04/22/2020 Colonoscopy COLSC FLX W/RMVL OF TUMOR POLYP LESION SNARE TQ 04/19/2017 2 adenomatous polyps - ESOPHAGOGASTRODUODENOSCOPY TRANSORAL DIAGNOSTIC 07/23/2019 EGD EXCISION OF BENIGN LESION GREATER THAN 1.25 CM 03/29/2000 tongue and lip lesions: fibroma; nose: sebaceous hyperplasia PAST SURGICAL HISTORY OF repair flexor tendon left thumb PAST SURGICAL HISTORY OF Left 09/03/2019 Dr. medina [facility]: left CTR and tenosynovectomy at wrist level PAST SURGICAL HISTORY OF Left 04/29/2021 Left median nerve release at the elbow and forearm, Dontae Medina MD, [facility] ROTATOR CUFF REPAIR 2008 left ROTATOR CUFF REPAIR 04/22/2016 right VASECTOMY UNI/BI SPX W/POSTOP SEMEN EXAMS SOCIAL HISTORY Tobacco: Ex-smoker, quit 47 years ago FAMILY HISTORY Does a similar condition to what you are experiencing run in your family? No REVIEW OF SYSTEMS: All other systems negative. PHYSICAL EXAM: PE: All other systems deferred. GENERAL: Appears healthy, well-nourished, no deformities. HABITUS: Normal GAIT: Antalgic to the left SKIN: Normal Left: ROM: Extension: slight flexion contracture Flexion: 100 degrees Internal Rotation: 20 degrees External Rotation: 35 degrees Abduction: 30 degrees Adduction: 20 degrees Strength: Abduction 5/5 and Flexion 5/5 Palpation: Tenderness over right greater trochanter Log roll: non-painful. Straight leg raise: Negative Neurovascular Status: Sensation Intact, Moves foot and ankle up & down, and 2+ dorsalis pedis RADIOGRAPHS (personally reviewed): mild left hip OA MRI: none DIAGNOSIS Encounter Diagnosis ICD-10-CM 1. Trochanteric bursitis of left hip M70.62 2. It band syndrome, left M76.32 PLAN Patients symptoms consistent with trochanteric bursitis due to inactivity and tightness. Will start mobic 15mg daily for 2 weeks. Given IT band stretches and AAOS hip conditioning program to work on hip tightness. No adult recon intervention needed. Follow up with non-op ortho PRN. I spent a total of 25 minutes on the date of the service which included preparing to see the patient, [id number] patient care, completing clinical documentation, obtaining and/or reviewing separately obtained history, performing a medically appropriate examination, counseling and educating the patient/family/caregiver, ordering medications, tests, or procedures, independently interpreting results (not separately reported), communicating results to the patient/family/caregiver, and care coordination (not separately reported). PROCEDURE: Procedures Luis Eduardo Rico PA-C documented in this encounter [facility] 09-05-2024 History of Present illness Narrative Radiology Service Progress Note PATIENT NAME: Gaston Lainez DATE OF SERVICE: September 05, 2024 TIME: 12:43 PM PATIENT IDENTITY VERIFICATION COMPLETED USING TWO (2) IDENTIFIERS: Name and Date of confirmed by patient verbally. FALL SCREENING: Has the patient had 2 falls in the last year or 1 fall with injury or currently using an Ambulatory Assistive Device (Walker, Cane, Wheelchair, Crutches, etc.)? No PATIENT GENDER DATA: Male PATIENT RELEVANT IMPLANT DATA REVIEWED: Not Applicable PATIENT PRESENTS WITH AN IMPLANTABLE OR ATTACHED WOMENS VOLLEYBALL COACH: No RADIOLOGY DEPARTMENT: General X-ray: Exam(s) Completed: Pelvis X-Ray: Pelvis with Hip Left and Wt. Bearing Lower Extremity X-Ray(s): Leg Length PERIPHERAL IV DATA: Not applicable SIGNED BY: Beverly Samayoa September 05, 2024 12:43 PM documented in this encounter [facility] 09-05-2024 Note HNO ID: [id number] Author: ELIZABETH LUBIN Tech Service: Radiology Author Type: Chemical Engineer Type: Progress Notes Filed: 09/05/2024 12:44 Note Text: Radiology Service Progress Note PATIENT NAME: Gaston Lainez DATE OF SERVICE: September 05, 2024 TIME: 12:43 PM PATIENT IDENTITY VERIFICATION COMPLETED USING TWO (2) IDENTIFIERS: Name and Date of confirmed by patient verbally. FALL SCREENING: Has the patient had 2 falls in the last year or 1 fall with injury or currently using an Ambulatory Assistive Device (Walker, Cane, Wheelchair, Crutches, etc.)? No PATIENT GENDER DATA: Male PATIENT RELEVANT IMPLANT DATA REVIEWED: Not Applicable PATIENT PRESENTS WITH AN IMPLANTABLE OR ATTACHED WOMENS VOLLEYBALL COACH: No RADIOLOGY DEPARTMENT: General X-ray: Exam(s) Completed: Pelvis X-Ray: Pelvis with Hip Left and Wt. Bearing Lower Extremity X-Ray(s): Leg Length PERIPHERAL IV DATA: Not applicable SIGNED BY: Beverly Samayoa September 05, 2024 12:43 PM [facility] 08-30-2024 Instructions Leticia Harding APRN.CNP - 08/30/2024 4:26 PM EST - LEVOFLOXACIN 750 MG TABLET for 7 days - PREDNISONE 20 MG TABLET for 5 days - BENZONATATE 100 MG CAPSULE 3 x day for 15 days documented in this encounter [facility] 08-30-2024 Note HNO ID: [id number] Author: LETICIA HARDING APRN.CNP Service: ? Author Type: Clinical Nurse Specialist Type: Progress Notes Filed: 08/30/2024 16:27 Note Text: This is a 73 year old male who presents today with: Patient presents with: Acute Visit: Cough and head congestion for 1 week HISTORY OF PRESENT ILLNESS: Gaston Lainez is a 73 year old male. Patient presents with: Acute Visit: Cough and head congestion for 1 week Sick with head congestion for a week Moving into chest Coughing up light yellow sputum all day and night No fever or chills No headache Some body ache Feels tired PAST MEDICAL HISTORY: PAST MEDICAL HISTORY Diagnosis Date Abnormal stress echocardiogram 01/14/2021 01/21/[address] Barragan: right dominant. LMT min luminal, LAD mild diffuse, LCx mild luminal with large caliber nondominant vessel extending into a single large obtuse marginal branch, proximal vessel is mildly calcified +mild luminal irreg, RCA 40% Large-caliber dominant vessel: moderate calcification from the proximal to mid vessel, mild diffuse ectatic disease proximal.The ostium of the Anxiety state, unspecified 10/24/2007 Benign paroxysmal positional vertigo one remote episode Bunion Chronic obstructive asthma, unspecified 10/24/2007 Depression likely bipolar disorder Depressive disorder, not elsewhere classified 10/24/2007 Generalized anxiety disorder 10/24/2007 History of marijuana use 03/02/2016 Quit 08/2015 Hypermobility syndrome Mild coronary artery disease Mixed hyperlipidemia 11/27/2008 Nontraumatic rupture of tendons of biceps (long head) R, 10/07 L OCD (obsessive compulsive disorder) Pneumonia, organism unspecified(486) 11/2001 bilateral: cleared Primary insomnia 03/02/2016 Senile dementia (HCC) 2022 PAST SURGICAL HISTORY Procedure Laterality Date COLONOSCOPY FLX DX W/COLLJ SPEC WHEN PFRMD 09/21/2006 repeat due 2016 COLONOSCOPY FLX DX W/COLLJ SPEC WHEN PFRMD 04/22/2020 Colonoscopy COLSC FLX W/RMVL OF TUMOR POLYP LESION SNARE TQ 04/19/2017 2 adenomatous polyps - ESOPHAGOGASTRODUODENOSCOPY TRANSORAL DIAGNOSTIC 07/23/2019 EGD EXCISION OF BENIGN LESION GREATER THAN 1.25 CM 03/29/2000 tongue and lip lesions: fibroma; nose: sebaceous hyperplasia PAST SURGICAL HISTORY OF repair flexor tendon left thumb PAST SURGICAL HISTORY OF Left 09/03/2019 Dr. medina [facility]: left CTR and tenosynovectomy at wrist level PAST SURGICAL HISTORY OF Left 04/29/2021 Left median nerve release at the elbow and forearm, Dontae Medina MD, [facility] ROTATOR CUFF REPAIR 2008 left ROTATOR CUFF REPAIR 04/22/2016 right VASECTOMY UNI/BI SPX W/POSTOP SEMEN EXAMS ALLERGIES Patient has no known allergies. MEDICATIONS Current Outpatient Medications Medication Sig donepezil (ARICEPT) 5 mg tablet TAKE 1 TABLET BY MOUTH EVERY DAY WITH BREAKFAST memantine (NAMENDA) 10 mg tablet Take 1 tablet by mouth two times a day. Week One: take 1/2 tablet (5mg) in the morning Week Two: take 1/2 tablet (5mg) in the morning and take 1/2 tablet (5mg) in the evening Week Three: take 1 tablet (10mg) in the morning and take 1/2 tablet (5mg) in the evening Week Four: take 1 tablet (10mg) in the morning and take 1 tablet (10mg) in the evening -this is the full dose (Patient taking differently: Take 10 mg by mouth two times a day.) atorvastatin (LIPITOR) 40 mg tablet Take 1 tablet by mouth once daily. busPIRone (BUSPAR) 15 mg tablet Take 1 tablet by mouth two times a day. tamsulosin (FLOMAX) 0.4 mg Take 1 capsule by mouth daily at bedtime. Patient should start on April 02, 2024. Tadalafil (CIALIS) 10 mg tablet 1-2 tabs daily as needed OLANZapine (ZYPREXA) 2.5 mg tablet use 1 to 2 tablets at bedtime fluticasone-salmeterol (WIXELA INHUB) 250-50 mcg/dose inhaler Inhale 1 Puff as instructed two times a day. albuterol HFA (VENTOLIN HFA) 90 mcg/actuation inhaler Inhale 2 Puffs as instructed every 4 hours as needed for wheezing/shortness of breath. MULTIVITAMIN ORAL Take by mouth once daily. polyethylene glycol 3350 (MIRALAX) 17 gram/dose powder 17g (1 scoop) with 8 oz daily as needed for constipation No current facility-administered medications for this visit. FAMILY HISTORY Problem Relation Age of Onset Heart Mother age 66, CA, SLE other (lupus) Mother diagnosed age 49 Heart Father age 84, CHF other (G6PD) Sister G6PD Diabetes Brother 1/2 brother Hypertension Brother 1/2 brother Colon Cancer Brother rectal cancer? 1/2 brother Social History Tobacco Use Smoking status: Former Current packs/day: 0.00 Average packs/day: 0.5 packs/day for 9.0 years (4.5 ttl pk-yrs) Types: Cigarettes Start date: 11/01/1967 Quit date: 10/31/1976 Years since quittin.8 Smokeless tobacco: Never Vaping Use Vaping status: Never Used Substance Use Topics Alcohol use: Yes Alcohol/week: 7.0 standard drinks of alcohol T (more content not included)... [facility] 08-30-2024 History of Present illness Narrative This is a 73 year old male who presents today with: Patient presents with: Acute Visit: Cough and head congestion for 1 week HISTORY OF PRESENT ILLNESS: Gaston Lainez is a 73 year old male. Patient presents with: Acute Visit: Cough and head congestion for 1 week Sick with head congestion for a week Moving into chest Coughing up light yellow sputum all day and night No fever or chills No headache Some body ache Feels tired PAST MEDICAL HISTORY: PAST MEDICAL HISTORY Diagnosis Date Abnormal stress echocardiogram 01/14/2021 01/21/[address] Barragan: right dominant. LMT min luminal, LAD mild diffuse, LCx mild luminal with large caliber nondominant vessel extending into a single large obtuse marginal branch, proximal vessel is mildly calcified +mild luminal irreg, RCA 40% Large-caliber dominant vessel: moderate calcification from the proximal to mid vessel, mild diffuse ectatic disease proximal.The ostium of the Anxiety state, unspecified 10/24/2007 Benign paroxysmal positional vertigo one remote episode Bunion Chronic obstructive asthma, unspecified 10/24/2007 Depression likely bipolar disorder Depressive disorder, not elsewhere classified 10/24/2007 Generalized anxiety disorder 10/24/2007 History of marijuana use 03/02/2016 Quit 08/2015 Hypermobility syndrome Mild coronary artery disease Mixed hyperlipidemia 11/27/2008 Nontraumatic rupture of tendons of biceps (long head) R, 10/07 L OCD (obsessive compulsive disorder) Pneumonia, organism unspecified(486) 11/2001 bilateral: cleared Primary insomnia 03/02/2016 Senile dementia (HCC) 2022 PAST SURGICAL HISTORY Procedure Laterality Date COLONOSCOPY FLX DX W/COLLJ SPEC WHEN PFRMD 09/21/2006 repeat due 2016 COLONOSCOPY FLX DX W/COLLJ SPEC WHEN PFRMD 04/22/2020 Colonoscopy COLSC FLX W/RMVL OF TUMOR POLYP LESION SNARE TQ 04/19/2017 2 adenomatous polyps - ESOPHAGOGASTRODUODENOSCOPY TRANSORAL DIAGNOSTIC 07/23/2019 EGD EXCISION OF BENIGN LESION GREATER THAN 1.25 CM 03/29/2000 tongue and lip lesions: fibroma; nose: sebaceous hyperplasia PAST SURGICAL HISTORY OF repair flexor tendon left thumb PAST SURGICAL HISTORY OF Left 09/03/2019 Dr. medina [facility]: left CTR and tenosynovectomy at wrist level PAST SURGICAL HISTORY OF Left 04/29/2021 Left median nerve release at the elbow and forearm, Dontae Medina MD, [facility] ROTATOR CUFF REPAIR 2008 left ROTATOR CUFF REPAIR 04/22/2016 right VASECTOMY UNI/BI SPX W/POSTOP SEMEN EXAMS ALLERGIES Patient has no known allergies. MEDICATIONS Current Outpatient Medications Medication Sig donepezil (ARICEPT) 5 mg tablet TAKE 1 TABLET BY MOUTH EVERY DAY WITH BREAKFAST memantine (NAMENDA) 10 mg tablet Take 1 tablet by mouth two times a day. Week One: take 1/2 tablet (5mg) in the morning Week Two: take 1/2 tablet (5mg) in the morning and take 1/2 tablet (5mg) in the evening Week Three: take 1 tablet (10mg) in the morning and take 1/2 tablet (5mg) in the evening Week Four: take 1 tablet (10mg) in the morning and take 1 tablet (10mg) in the evening -this is the full dose (Patient taking differently: Take 10 mg by mouth two times a day.) atorvastatin (LIPITOR) 40 mg tablet Take 1 tablet by mouth once daily. busPIRone (BUSPAR) 15 mg tablet Take 1 tablet by mouth two times a day. tamsulosin (FLOMAX) 0.4 mg Take 1 capsule by mouth daily at bedtime. Patient should start on April 02, 2024. Tadalafil (CIALIS) 10 mg tablet 1-2 tabs daily as needed OLANZapine (ZYPREXA) 2.5 mg tablet use 1 to 2 tablets at bedtime fluticasone-salmeterol (WIXELA INHUB) 250-50 mcg/dose inhaler Inhale 1 Puff as instructed two times a day. albuterol HFA (VENTOLIN HFA) 90 mcg/actuation inhaler Inhale 2 Puffs as instructed every 4 hours as needed for wheezing/shortness of breath. MULTIVITAMIN ORAL Take by mouth once daily. polyethylene glycol 3350 (MIRALAX) 17 gram/dose powder 17g (1 scoop) with 8 oz daily as needed for constipation No current facility-administered medications for this visit. FAMILY HISTORY Problem Relation Age of Onset Heart Mother age 66, CA, SLE other (lupus) Mother diagnosed age 49 Heart Father age 84, CHF other (G6PD) Sister G6PD Diabetes Brother 1/2 brother Hypertension Brother 1/2 brother Colon Cancer Brother rectal cancer? 1/2 brother Social History Tobacco Use Smoking status: Former Current packs/day: 0.00 Average packs/day: 0.5 packs/day for 9.0 years (4.5 ttl pk-yrs) Types: Cigarettes Start date: 11/01/1967 Quit date: 10/31/1976 Years since quittin.8 Smokeless tobacco: Never Vaping Use Vaping status: Never Used Substance Use Topics Alcohol use: Yes Alcohol/week: 7.0 standard drinks of alcohol Types: 7 Glasses of wine per week Drug use: Not Currently Comment: marijuana use, has used inhalants EXAM: BP 116/72 Pulse 81 Temp 37.2 C (98.9 F) (Tympanic) Wt 78 kg (171 lb 15.3 oz) SpO2 93% BMI 23.32 kg/m PHYSICAL EXAM: Physical Exam Vitals reviewed. Constitutional: Appearance: Normal appearance. HENT: Head: Normocephalic. Cardiovascular: Rate and Rhythm: Normal rate and regular rhythm. Pulses: Normal pulses. Heart sounds: Normal heart sounds. Pulmonary: Breath sounds: Wheezing, rhonchi and rales present. Comments: Some dyspnea with exam Wheezing audible jean pierre. Bases RLL very diminished, nearly absent with rhonchi and wheeze Musculoskeletal: Comments: Generalized weakness Neurological: Mental Status: He is alert. LABS: reviewed ECG & labs ASSESSMENT/PLAN: 1. Pneumonia of right lower lobe due to infectious organism - ICD9: 486, ICD10: J18.9 Hx of pneumonia - LEVOFLOXACIN 750 MG TABLET for 7 days - PREDNISONE 20 MG TABLET for 5 days - BENZONATATE 100 MG CAPSULE 3 x day for 15 days Discussed treatment plan and patient voices understanding. Patient's questions answered appropriately. Medications and potential side effects were discussed and patient voices understanding. Return to the office as scheduled or as needed for worsening/no improvement. Leticia Harding APRN.JUSTICE documented in this encounter [facility] 08-30-2024 Telephone encounter Note Pts called in and reports Pts has had a cold since 08/23/24. Pt denies fever. He states he has a dag coater cough, runny nose with thin yellow nasal discharge, and SOB on exertion. Pt is scheduled with Trish Suppan TAR[employer] EXPERT today at 420 pm. [facility] 08-30-2024 Miscellaneous Notes Pts called in and reports Pts has had a cold since 08/23/24. Pt denies fever. He states he has a dag coater cough, runny nose with thin yellow nasal discharge, and SOB on exertion. Pt is scheduled with Trish Suppan TAR[employer] EXPERT today at 420 pm. documented in this encounter [facility] 08-28-2024 Note HNO ID: [id number] Author: VIRI BEASLEY, ? Service: ? Author Type: Physician Type: Progress Notes Filed: 08/30/2024 22:58 Note Text: Initial Podiatric Office Visit: Chief Complaint: This 73 year old male who presents with chief complaint:b/l foot pain HPI Patient presents to clinic for evaluation of b/l foot. Complains of pain between first and 2nd toe Often develops callus due to rubbing Treats with padding. Has custom orthotics. PAIN EVALUATION 08/28/2024 1121 Pain Level: 7 Description: Sharp Duration Units: Years Frequency: Intermittent Hemoglobin A1C (%) Date Value 11/26/2022 4.8 01/06/2021 5.3 02/28/2020 4.9 PCP: Erum Mckinley PA-C PAST MEDICAL HISTORY Diagnosis Date Abnormal stress echocardiogram 01/14/2021 01/21/[address] Barragan: right dominant. LMT min luminal, LAD mild diffuse, LCx mild luminal with large caliber nondominant vessel extending into a single large obtuse marginal branch, proximal vessel is mildly calcified +mild luminal irreg, RCA 40% Large-caliber dominant vessel: moderate calcification from the proximal to mid vessel, mild diffuse ectatic disease proximal.The ostium of the Anxiety state, unspecified 10/24/2007 Benign paroxysmal positional vertigo one remote episode Bunion Chronic obstructive asthma, unspecified 10/24/2007 Depression likely bipolar disorder Depressive disorder, not elsewhere classified 10/24/2007 Generalized anxiety disorder 10/24/2007 History of marijuana use 03/02/2016 Quit 08/2015 Hypermobility syndrome Mild coronary artery disease Mixed hyperlipidemia 11/27/2008 Nontraumatic rupture of tendons of biceps (long head) R, 10/07 L OCD (obsessive compulsive disorder) Pneumonia, organism unspecified(486) 11/2001 bilateral: cleared Primary insomnia 03/02/2016 Senile dementia (HCC) 2022 Current Outpatient Medications Medication Sig donepezil (ARICEPT) 5 mg tablet TAKE 1 TABLET BY MOUTH EVERY DAY WITH BREAKFAST memantine (NAMENDA) 10 mg tablet Take 1 tablet by mouth two times a day. Week One: take 1/2 tablet (5mg) in the morning Week Two: take 1/2 tablet (5mg) in the morning and take 1/2 tablet (5mg) in the evening Week Three: take 1 tablet (10mg) in the morning and take 1/2 tablet (5mg) in the evening Week Four: take 1 tablet (10mg) in the morning and take 1 tablet (10mg) in the evening -this is the full dose atorvastatin (LIPITOR) 40 mg tablet Take 1 tablet by mouth once daily. busPIRone (BUSPAR) 15 mg tablet Take 1 tablet by mouth two times a day. tamsulosin (FLOMAX) 0.4 mg Take 1 capsule by mouth daily at bedtime. Patient should start on April 02, 2024. Tadalafil (CIALIS) 10 mg tablet 1-2 tabs daily as needed OLANZapine (ZYPREXA) 2.5 mg tablet use 1 to 2 tablets at bedtime fluticasone-salmeterol (WIXELA INHUB) 250-50 mcg/dose inhaler Inhale 1 Puff as instructed two times a day. albuterol HFA (VENTOLIN HFA) 90 mcg/actuation inhaler Inhale 2 Puffs as instructed every 4 hours as needed for wheezing/shortness of breath. MULTIVITAMIN ORAL Take by mouth once daily. polyethylene glycol 3350 (MIRALAX) 17 gram/dose powder 17g (1 scoop) with 8 oz daily as needed for constipation No current facility-administered medications for this visit. ALLERGIES No Known Allergies PAST SURGICAL HISTORY Procedure Laterality Date COLONOSCOPY FLX DX W/COLLJ SPEC WHEN PFRMD 09/21/2006 repeat due 2016 COLONOSCOPY FLX DX W/COLLJ SPEC WHEN PFRMD 04/22/2020 Colonoscopy COLSC FLX W/RMVL OF TUMOR POLYP LESION SNARE TQ 04/19/2017 2 adenomatous polyps - ESOPHAGOGASTRODUODENOSCOPY TRANSORAL DIAGNOSTIC 07/23/2019 EGD EXCISION OF BENIGN LESION GREATER THAN 1.25 CM 03/29/2000 tongue and lip lesions: fibroma; nose: sebaceous hyperplasia PAST SURGICAL HISTORY OF repair flexor tendon left thumb PAST SURGICAL HISTORY OF Left 09/03/2019 Dr. medina [facility]: left CTR and tenosynovectomy at wrist level PAST SURGICAL HISTORY OF Left 04/29/2021 Left median nerve release at the elbow and forearm, Dontae Medina MD, [facility] ROTATOR CUFF REPAIR 2008 left ROTATOR CUFF REPAIR 04/22/2016 right VASECTOMY UNI/BI SPX W/POSTOP SEMEN EXAMS FAMILY HISTORY Problem Relation Age of Onset Heart Mother age 66, CA, SLE other (lupus) Mother diagnosed age 49 Heart Father age 84, CHF other (G6PD) Sister G6PD Diabetes Brother 1/2 brother Hypertension Brother 1/2 brother Colon Cancer Brother rectal cancer? 1/2 brother Social History Tobacco Use Smoking status: Former Current packs/day: 0.00 Average packs/day: 0.5 packs/day for 9.0 years (4.5 ttl pk-yrs) Types: Cigarettes Start date: 11/01/1967 Quit date: 10/31/1976 Years since quittin.8 Smokeless tobacco: Never Vaping Use Vaping status: Never Used Substance Use Topics Alcohol use: Yes Alcohol/week: 7.0 standard drinks of alcohol Types: 7 Glasses of wine per week (more content not included)... [facility] 08-28-2024 History of Present illness Narrative Initial Podiatric Office Visit: Chief Complaint: This 73 year old male who presents with chief complaint:b/l foot pain HPI Patient presents to clinic for evaluation of b/l foot. Complains of pain between first and 2nd toe Often develops callus due to rubbing Treats with padding. Has custom orthotics. PAIN EVALUATION 08/28/2024 1121 Pain Level: 7 Description: Sharp Duration Units: Years Frequency: Intermittent Hemoglobin A1C (%) Date Value 11/26/2022 4.8 01/06/2021 5.3 02/28/2020 4.9 PCP: Erum Mckinley PA-C PAST MEDICAL HISTORY Diagnosis Date Abnormal stress echocardiogram 01/14/2021 01/21/[address] Barragan: right dominant. LMT min luminal, LAD mild diffuse, LCx mild luminal with large caliber nondominant vessel extending into a single large obtuse marginal branch, proximal vessel is mildly calcified +mild luminal irreg, RCA 40% Large-caliber dominant vessel: moderate calcification from the proximal to mid vessel, mild diffuse ectatic disease proximal.The ostium of the Anxiety state, unspecified 10/24/2007 Benign paroxysmal positional vertigo one remote episode Bunion Chronic obstructive asthma, unspecified 10/24/2007 Depression likely bipolar disorder Depressive disorder, not elsewhere classified 10/24/2007 Generalized anxiety disorder 10/24/2007 History of marijuana use 03/02/2016 Quit 08/2015 Hypermobility syndrome Mild coronary artery disease Mixed hyperlipidemia 11/27/2008 Nontraumatic rupture of tendons of biceps (long head) R, 10/07 L OCD (obsessive compulsive disorder) Pneumonia, organism unspecified(486) 11/2001 bilateral: cleared Primary insomnia 03/02/2016 Senile dementia (HCC) 2022 Current Outpatient Medications Medication Sig donepezil (ARICEPT) 5 mg tablet TAKE 1 TABLET BY MOUTH EVERY DAY WITH BREAKFAST memantine (NAMENDA) 10 mg tablet Take 1 tablet by mouth two times a day. Week One: take 1/2 tablet (5mg) in the morning Week Two: take 1/2 tablet (5mg) in the morning and take 1/2 tablet (5mg) in the evening Week Three: take 1 tablet (10mg) in the morning and take 1/2 tablet (5mg) in the evening Week Four: take 1 tablet (10mg) in the morning and take 1 tablet (10mg) in the evening -this is the full dose atorvastatin (LIPITOR) 40 mg tablet Take 1 tablet by mouth once daily. busPIRone (BUSPAR) 15 mg tablet Take 1 tablet by mouth two times a day. tamsulosin (FLOMAX) 0.4 mg Take 1 capsule by mouth daily at bedtime. Patient should start on April 02, 2024. Tadalafil (CIALIS) 10 mg tablet 1-2 tabs daily as needed OLANZapine (ZYPREXA) 2.5 mg tablet use 1 to 2 tablets at bedtime fluticasone-salmeterol (WIXELA INHUB) 250-50 mcg/dose inhaler Inhale 1 Puff as instructed two times a day. albuterol HFA (VENTOLIN HFA) 90 mcg/actuation inhaler Inhale 2 Puffs as instructed every 4 hours as needed for wheezing/shortness of breath. MULTIVITAMIN ORAL Take by mouth once daily. polyethylene glycol 3350 (MIRALAX) 17 gram/dose powder 17g (1 scoop) with 8 oz daily as needed for constipation No current facility-administered medications for this visit. ALLERGIES No Known Allergies PAST SURGICAL HISTORY Procedure Laterality Date COLONOSCOPY FLX DX W/COLLJ SPEC WHEN PFRMD 09/21/2006 repeat due 2016 COLONOSCOPY FLX DX W/COLLJ SPEC WHEN PFRMD 04/22/2020 Colonoscopy COLSC FLX W/RMVL OF TUMOR POLYP LESION SNARE TQ 04/19/2017 2 adenomatous polyps - ESOPHAGOGASTRODUODENOSCOPY TRANSORAL DIAGNOSTIC 07/23/2019 EGD EXCISION OF BENIGN LESION GREATER THAN 1.25 CM 03/29/2000 tongue and lip lesions: fibroma; nose: sebaceous hyperplasia PAST SURGICAL HISTORY OF repair flexor tendon left thumb PAST SURGICAL HISTORY OF Left 09/03/2019 Dr. medina [facility]: left CTR and tenosynovectomy at wrist level PAST SURGICAL HISTORY OF Left 04/29/2021 Left median nerve release at the elbow and forearm, Dontae Medina MD, [facility] ROTATOR CUFF REPAIR 2008 left ROTATOR CUFF REPAIR 04/22/2016 right VASECTOMY UNI/BI SPX W/POSTOP SEMEN EXAMS FAMILY HISTORY Problem Relation Age of Onset Heart Mother age 66, CA, SLE other (lupus) Mother diagnosed age 49 Heart Father age 84, CHF other (G6PD) Sister G6PD Diabetes Brother 1/2 brother Hypertension Brother 1/2 brother Colon Cancer Brother rectal cancer? 1/2 brother Social History Tobacco Use Smoking status: Former Current packs/day: 0.00 Average packs/day: 0.5 packs/day for 9.0 years (4.5 ttl pk-yrs) Types: Cigarettes Start date: 11/01/1967 Quit date: 10/31/1976 Years since quittin.8 Smokeless tobacco: Never Vaping Use Vaping status: Never Used Substance Use Topics Alcohol use: Yes Alcohol/week: 7.0 standard drinks of alcohol Types: 7 Glasses of wine per week Drug use: Not Currently Comment: marijuana use, has used inhalants REVIEW OF SYSTEMS GENERAL: Negative for Malaise, significant weight loss, fever RESPIRATORY: Negative for cough, wheezing and shortness of breath CARDIOVASCULAR: Negative for chest pain, leg swelling and palpitations GI: Negative for abdominal discomfort, blood in stools or black stools and change in bowel habits : Negative for dysuria, frequency and incontinence MUSCULOSKELETAL: Negative for joint pain or swelling, back pain, and muscle pain. SKIN: Negative for lesions, rash, and itching. HEMATOLOGY/LYMPHOLOGY Negative for prolonged bleeding, bruising easily, and swollen nodes. ENDOCRINE: Negative for cold or heat intolerance, polyuria, polydipsia and goiter. NEURO: negative Physical Exam: Constitutional: Pt is a well developed 73 year old male who is alert, oriented and cooperative Eyes: Following during examination. No redness or drainage. Respiratory: RR normal and nonlabored. Even breathing. No evidence of distress or shortness of breath. Psychology: Patient is engaged during conversation. Normal affect and mood. Does not appear depressed or anxious during encounter. Vascular: Dorsalis pedis and posterior tibial pulses palpable as b/l Capillary Fill time < 5 seconds to digits 1-5 b/l Skin temperature warm to warm proximal to distal b/l Hair growth present to digits Neurological: intact light touch/epicritic sensation b/l intact protective sensation no significant neurological deficits Dermatological: Nails 1-5 b/l appear normal. Webspaces clean and dry 1-4 b/l. Skin appears well hydrated and supple. good color, texture, turgor. No open lesions present. Callus noted to lateral aspect of b/l hallux. No underlying ulceration Musculoskeletal/Orthopaedic: Patient has pain to palpation of b/l 2nd toe Foot type is pronated structurally AJ ROM is decreased with knee extended and flexed 1st MPJ is decreased when loaded and no pain or crepitus are noted with ROM. MTJ, STJ are full and free of pain and crepitus. 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 History and physical examination performed. 2. XR reviewed with patient and interpreted today 3. Discussed pain in b/l 2nd toe. The pain is related to rubbing between the first and 2nd toe leading to callus. Callus reduced with dremmel. Discussed options for the pain in 2nd toe. Options include use of gel padding vs lambs wool. This will not correct the issue but may help to reduce pain. Other options dicussed include surgery to correct deformity vs amputation of 2nd toe. 4. Patient is going to try padding. Viri Beasley DPM Podiatry [address] [facility] [id number] Dept: [phone] Dept documented in this encounter [facility] 08-28-2024 History of Present illness Narrative Radiology Service Progress Note PATIENT NAME: Gaston Lainez DATE OF SERVICE: August 28, 2024 TIME: 10:49 AM PATIENT IDENTITY VERIFICATION COMPLETED USING TWO (2) IDENTIFIERS: Name and Date of confirmed by patient verbally. FALL SCREENING: Has the patient had 2 falls in the last year or 1 fall with injury or currently using an Ambulatory Assistive Device (Walker, Cane, Wheelchair, Crutches, etc.)? No PATIENT GENDER DATA: Male PATIENT RELEVANT IMPLANT DATA REVIEWED: Yes PATIENT PRESENTS WITH AN IMPLANTABLE OR ATTACHED WOMENS VOLLEYBALL COACH: No RADIOLOGY DEPARTMENT: General X-ray: Exam(s) Completed: Lower Extremity X-Ray(s): Foot, Bilateral PERIPHERAL IV DATA: Not applicable SIGNED BY: RT Sohail(Laurie) August 28, 2024 10:49 AM documented in this encounter [facility] 08-28-2024 Note HNO ID: [id number] Author: TRAN ISLAS RT(R) Service: ? Author Type: Chemical Engineer Type: Progress Notes Filed: 08/28/2024 11:05 Note Text: Radiology Service Progress Note PATIENT NAME: Gaston Lainez DATE OF SERVICE: August 28, 2024 TIME: 10:49 AM PATIENT IDENTITY VERIFICATION COMPLETED USING TWO (2) IDENTIFIERS: Name and Date of confirmed by patient verbally. FALL SCREENING: Has the patient had 2 falls in the last year or 1 fall with injury or currently using an Ambulatory Assistive Device (Walker, Cane, Wheelchair, Crutches, etc.)? No PATIENT GENDER DATA: Male PATIENT RELEVANT IMPLANT DATA REVIEWED: Yes PATIENT PRESENTS WITH AN IMPLANTABLE OR ATTACHED WOMENS VOLLEYBALL COACH: No RADIOLOGY DEPARTMENT: General X-ray: Exam(s) Completed: Lower Extremity X-Ray(s): Foot, Bilateral PERIPHERAL IV DATA: Not applicable SIGNED BY: RT Sohail(Laurie) August 28, 2024 10:49 AM [facility] 08-20-2024 Telephone encounter Note The following approved medication requests have been transmitted electronically. Requested Prescriptions Signed Prescriptions Disp Refills donepezil (ARICEPT) 5 mg tablet 90 tablet 1 Sig: TAKE 1 TABLET BY MOUTH EVERY DAY WITH BREAKFAST Authorizing Provider: SHAWANDA HALE Ordering User: ESTRADA MATHUR APRN.CNP [facility] Work Phone: 08-20-2024 Miscellaneous Notes The following approved medication requests have been transmitted electronically. Requested Prescriptions Signed Prescriptions Disp Refills donepezil (ARICEPT) 5 mg tablet 90 tablet 1 Sig: TAKE 1 TABLET BY MOUTH EVERY DAY WITH BREAKFAST Authorizing Provider: SHAWANDA HALE Ordering User: ESTRADA MATHUR APRN.[employer] REPRESENTATIVE documented in this encounter [facility] 08-02-2024 Note HNO ID: [id number] Author: GENOVEVA OLSON CCC-[facility] Service: ? Author Type: Speech Language Pathologist Type: Progress Notes Filed: 08/02/2024 15:18 Note Text: Episode Visit Count: 2 Therapist That Will Accept/Oversee The Plan Of Care: Wesley Start of Care Date: 07/18/24 Onset Date: 08/29/23 Plan of Care Certification Date: 07/18/24 Next Certification Due Date: 09/16/24 Patient Identified by Name and Date of : Yes [facility] SPEECH THERAPY TREATMENT NOTE IMPRESSION: Communication deficits identified: Cognitive-Linguistic deficits PLAN: Current Frequency: 1x every other week Duration: 6 weeks PLAN FOR NEXT VISIT: -Memory/recall strategies, word-finding SUBJECTIVE: -Patient is accompanied to therapy by his -Using calendar at times but helps with this OBJECTIVE: MEASURES WITH LEVEL OF FUNCTION: Professional training and skilled instructions were provided as follows: Cognitive-linguistic skills -Sentence formulation given [id number]/graphic expression and reading comprehension for basic sentences -Requires consistent cues to support comprehension to complete task -Orientation task-benefits from contextual cues (recent holiday, ALYX) -Visual sequencing task for 3-step- 80% accuracy, increasing accuracy with verbal cues Cognition Executive Function Deficits: Sequencing Sequencing Comments: 80% (3-step visual) Safety Awareness Comments: Verbal problem solving given scenario- 75-80% with increased accuracy given cues TREATMENT: Speech/Language Therapy ([id number]): Skilled Intervention: Educated and instructed patient on memory recall strategies such as graphic skills and designated routine. Provided and instructed patient on utilization of a personalized memory book. Current Home Program: -Utilize visual aids to support recall, consider daily materials planner/whiteboard Billing: Speech Treatment ([id number]) Total time / Length of visit: 55 minutes Session Start Time : 1417 Session Stop Time : 1512 Genoveva Olson CCC-[facility]TER GEOPH[facility]ICAL [facility] 08-02-2024 History of Present illness Narrative Episode Visit Count: 2 Therapist That Will Accept/Oversee The Plan Of Care: Wesley Start of Care Date: 07/18/24 Onset Date: 08/29/23 Plan of Care Certification Date: 07/18/24 Next Certification Due Date: 09/16/24 Patient Identified by Name and Date of : Yes [facility] SPEECH THERAPY TREATMENT NOTE IMPRESSION: Communication deficits identified: Cognitive-Linguistic deficits PLAN: Current Frequency: 1x every other week Duration: 6 weeks PLAN FOR NEXT VISIT: -Memory/recall strategies, word-finding SUBJECTIVE: -Patient is accompanied to therapy by his -Using calendar at times but helps with this OBJECTIVE: MEASURES WITH LEVEL OF FUNCTION: Professional training and skilled instructions were provided as follows: Cognitive-linguistic skills -Sentence formulation given [id number]/graphic expression and reading comprehension for basic sentences -Requires consistent cues to support comprehension to complete task -Orientation task-benefits from contextual cues (recent holiday, ALYX) -Visual sequencing task for 3-step- 80% accuracy, increasing accuracy with verbal cues Cognition Executive Function Deficits: Sequencing Sequencing Comments: 80% (3-step visual) Safety Awareness Comments: Verbal problem solving given scenario- 75-80% with increased accuracy given cues TREATMENT: Speech/Language Therapy ([id number]): Skilled Intervention: Educated and instructed patient on memory recall strategies such as graphic skills and designated routine. Provided and instructed patient on utilization of a personalized memory book. Current Home Program: -Utilize visual aids to support recall, consider daily materials planner/whiteboard Billing: Speech Treatment ([id number]) Total time / Length of visit: 55 minutes Session Start Time : 1416 Session Stop Time : 151 Genoveva Olson CCC-[facility] [employer]OPH[employer] documented in this encounter [facility] 07-18-2024 Note HNO ID: [id number] Author: GENOVEVA OLSON CCC-[facility]TER [employer]OPH[employer] Service: ? Author Type: Speech Language Pathologist Type: Progress Notes Filed: 07/18/2024 14:00 Note Text: Episode Visit Count: 1 Therapist That Will Accept/Oversee The Plan Of Care: Wesley Start of Care Date: 07/18/24 Onset Date: 08/29/23 Plan of Care Certification Date: 07/18/24 Next Certification Due Date: 09/16/24 Patient Identified by Name and Date of : Yes [facility] COGNITIVE LINGUISTIC EVALUATION PLAN OF CARE: Impression: Communication deficits identified: Cognitive-Linguistic deficits RECOMMENDATION: [facility] [employer] Recommendations: Outpatient Speech Therapy Results and Recommendations Discussed With: Patient, Significant Other Prognosis: Good Good: good support system/ coping skills Goals for Episode of Care: created on 07/18/2024 through 09/16/24 COGNITIVE GOALS - Improve orientation to place, time, situation to 90 % via use of compensatory strategies with moderate assist/cues. -Utilize memory book/calendar/daily log with 90% accuracy given moderate assist. -Sequence 5-6 # units of information/steps re: ADL tasks with 90% accuracy in order to be able to correctly order the steps when performing ADLs. -Patient / Family to demonstrate understanding of need and benefit of cognitive linguistic exercises that support brain enrichment for maximum executive functioning skills and maximum independence. All goals to target the patient's overall ability to facilitate functional cognitive linguistic skills. Planned Interventions, Frequency, and Duration: Planned Treatment Interventions: Cognitive-Linguistic Training (01173, [id number], [id number]), Receptive Language Training (69997, 23780), Patient / Caregiver Education/ Training, Speech Treatment ([id number]) Current Frequency: 1x every other week Duration: 6 weeks PLAN FOR NEXT VISIT: -Memory/recall strategies, word-finding Patient demonstrates good understanding of plan of care and treatment. The above goals and plan of care were discussed and agreed upon by patient/family. SUBJECTIVE: Gaston Lainez is a 73 year old male seen today for a diagnostic for cognitive-linguistic deficits. 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 . Speech/Voice/Language Speech Production: Within Functional Limits Expressive and Receptive Language: Within Functional Limits Except Auditory Comprehension Deficits: 1-Step Commands, Complex Yes/No Questions, Personal Yes/No Questions, Simple Yes/No Questions 1-Step Commands - (%): 75 Complex Yes/No Questions - (%): 50 Personal Yes/No Questions - (%): 70 Simple Yes/No Questions - (%): 75 Verbal Expression Deficits: Confrontational Naming, Expressing Basic Needs/Wants, Divergent Naming Confrontational Naming - (%): 90 (basic/everyday items) Expressing Basic Needs/Wants - (%): 85 Divergent Naming - (%): 40 % Written Expression Deficits: (Unable to write address) COGNITIVE-LINGUISTIC SKILLS Cognition Cognitive Status: Within Functional Limits For Current Session Except Cognitive Deficits: Orientation Deficits, Memory Deficits, Executive Function Deficit Orientation Deficits: (Appears confused at times, disoriented, does not know why he is here; able to state city and [place]) Memory Deficits: Functional, Immediate, Short Term Functional Memory Comments: marked/severe Immediate Memory Comments: marked/severe Short Term Memory Comments: marked/severe Executive Function Deficits: Organization, Problem Solving, Safety Awareness, Reasoning/Inferences, Math Calculations, Time/Money Management Problem Solving Comments: moderate/marked Safety Awareness Comments: moderate/marked Reasoning/Inferences Comments: marked Organization Comments: thought organization Time/Money Management Comments : severe Cognitive Clinical Tests and Screens: SLUMS SLUMS Level of Education: High school Orientation (week): 1 Orientation (year): 0 Orientation (state): 1 Calculations: 0 Namin Sh (more content not included)... [facility] 07-18-2024 History of Present illness Narrative Episode Visit Count: 1 Therapist That Will Accept/Oversee The Plan Of Care: Wesley Start of Care Date: 07/18/24 Onset Date: 08/29/23 Plan of Care Certification Date: 07/18/24 Next Certification Due Date: 09/16/24 Patient Identified by Name and Date of : Yes [facility] COGNITIVE LINGUISTIC EVALUATION PLAN OF CARE: Impression: Communication deficits identified: Cognitive-Linguistic deficits RECOMMENDATION: [facility] [employer] Recommendations: Outpatient Speech Therapy Results and Recommendations Discussed With: Patient, Significant Other Prognosis: Good Good: good support system/ coping skills Goals for Episode of Care: created on 07/18/2024 through 09/16/24 COGNITIVE GOALS - Improve orientation to place, time, situation to 90 % via use of compensatory strategies with moderate assist/cues. -Utilize memory book/calendar/daily log with 90% accuracy given moderate assist. -Sequence 5-6 # units of information/steps re: ADL tasks with 90% accuracy in order to be able to correctly order the steps when performing ADLs. -Patient / Family to demonstrate understanding of need and benefit of cognitive linguistic exercises that support brain enrichment for maximum executive functioning skills and maximum independence. All goals to target the patient's overall ability to facilitate functional cognitive linguistic skills. Planned Interventions, Frequency, and Duration: Planned Treatment Interventions: Cognitive-Linguistic Training (86896, [id number], [id number]), Receptive Language Training (51596, 21974), Patient / Caregiver Education/ Training, Speech Treatment ([id number]) Current Frequency: 1x every other week Duration: 6 weeks PLAN FOR NEXT VISIT: -Memory/recall strategies, word-finding Patient demonstrates good understanding of plan of care and treatment. The above goals and plan of care were discussed and agreed upon by patient/family. SUBJECTIVE: Gaston Lainez is a 73 year old male seen today for a diagnostic for cognitive-linguistic deficits. 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 . Speech/Voice/Language Speech Production: Within Functional Limits Expressive and Receptive Language: Within Functional Limits Except Auditory Comprehension Deficits: 1-Step Commands, Complex Yes/No Questions, Personal Yes/No Questions, Simple Yes/No Questions 1-Step Commands - (%): 75 Complex Yes/No Questions - (%): 50 Personal Yes/No Questions - (%): 70 Simple Yes/No Questions - (%): 75 Verbal Expression Deficits: Confrontational Naming, Expressing Basic Needs/Wants, Divergent Naming Confrontational Naming - (%): 90 (basic/everyday items) Expressing Basic Needs/Wants - (%): 85 Divergent Naming - (%): 40 % Written Expression Deficits: (Unable to write address) COGNITIVE-LINGUISTIC SKILLS Cognition Cognitive Status: Within Functional Limits For Current Session Except Cognitive Deficits: Orientation Deficits, Memory Deficits, Executive Function Deficit Orientation Deficits: (Appears confused at times, disoriented, does not know why he is here; able to state city and [place]) Memory Deficits: Functional, Immediate, Short Term Functional Memory Comments: marked/severe Immediate Memory Comments: marked/severe Short Term Memory Comments: marked/severe Executive Function Deficits: Organization, Problem Solving, Safety Awareness, Reasoning/Inferences, Math Calculations, Time/Money Management Problem Solving Comments: moderate/marked Safety Awareness Comments: moderate/marked Reasoning/Inferences Comments: marked Organization Comments: thought organization Time/Money Management Comments : severe Cognitive Clinical Tests and Screens: SLUMS [employer] Level of Education: High school Orientation (week): 1 Orientation (year): 0 Orientation (state): 1 Calculations: 0 Namin Short-Term Memory: 1 Attention/Sequencin Visual-Spatial Skills (clock): 0 -SLUMS not completed due to severity of cognitive impairment Education: Education Learning Preferences: Explanation, Printed Materials Barriers: Cognitive Limitations, Communication Deficit, Desire and Motivation Learning/Educational Needs: Family Education/Training, Language Skills, Cognitive Skills Education Provided: Yes, see treatment interventions for education provided Education Provided To: Patient, Family Education Mode/Type: Explanation/Discussion, Literature/Printed Materials Response to Education/Teach Back: Requires Review/Additional Education TREATMENT: Evaluation: Eval Sound Production with Language Expression and Lifestyle Block Farmer ([id number]) Speech/Language Therapy ([id number]): Skilled Intervention: Educated and instructed patient on memory recall strategies such as verbal repetition, active repetition, graphic skills, and designated routine. Provided and instructed patient on utilization of a personalized memory book. Current Home Program: -Utilize visual aids to support recall, consider daily materials planner/whiteboard Billing: Eval Sound Production with Language Expression and Lifestyle Block Farmer ([id number]) and Speech Treatment ([id number]) Total time / Length of visit: 62 minutes Session Start Time : 1218 Session Stop Time : 1320 Genoevva Olson CCC-DRAFTER GEOP[employer]ICAL documented in this encounter [facility] 07-10-2024 Instructions Alexus Naik APRN.CNP - 07/10/2024 3:17 PM EST TREATMENT PLAN: Continue Namenda, Aricept and Zyprexa as ordered. Continue Buspar but ok to take only once a day if 2nd dose not needed Consult placed for speech therapy for cognitive speech decline/recall deficit 4. Follow up 3 months. 5. Reach out if questions or concerns prior. For those experiencing a suicidal crisis: --call the National Suicide Prevention Lifeline at 98 (783-886-8679) --text the Crisis Text Line (text HOME to 258302) --call 281 and let them know you are having a mental health crisis or go to your nearest Emergency Room for stabilization. --You can also call Mobile Crisis at [phone]. -- You may call the department appointment line at [phone] to schedule your appointment. -- Please call my nurse at [phone] or send me a message in [employer] with any questions or concerns between appointments. documented in this encounter [facility] 07-10-2024 Note HNO ID: [id number] Author: ALEXUS NAIK APRN.CNP Service: ? Author Type: Nurse Practitioner Type: Progress Notes Filed: 07/16/2024 16:03 Note Text: FOLLOW UP - PSYCHIATRIC PROGRESS NOTE PATIENT: Gaston Lainez DATE: July 10, 2024 Visit Type:In person All information is from Patient report except when noted. This evaluation is NOT intended for forensic, disability or child custody purposes. IAlexus APRN.JUSTICE, personally performed the services described in this documentation. All medical record entries made by the [employer] student were at my direction and in my presence. I have reviewed the chart and discharge instructions (if applicable) and agree that the record reflects my personal performance and is accurate and complete. Alexus Naik APRN.CNP July 16, 2024 3:59 PM CC: Presenting today for follow up regarding psychiatric medication management. HPI: Treatment Plan from Last Visit on 05/24/24 with Ulysses Hale APRN, CNP Copied and pasted in italics below SUBJECTIVE Gaston Lainez is a 73 year old male seen today for a follow up visit. Gaston Lainez is being followed for Major neurocognitive disorder, likely multifactorial given complex history of TBI, bipolar disorder with psychotic episodes, but significant generalized cortical atrophy including hippocampal atrophy on MRI brain is concerning for a neurodegenerative condition such as Alzheimer's disease. Possibility of comorbid LBD remains but difficult to distinguish given complex history. Patient was last seen on . At that time the impression and agreed upon plan of care were as follows, included here in italics. (F03.90) Major neurocognitive disorder (HCC) Comment: Could not tolerate increased dose of Aricept due to bradycardia and fatigue. On 5 mg daily dose fatigue is improved but today he remains bradycardic. Underlying etiology likely multifactorial given complex history of TBI, bipolar disorder with psychotic episodes, but significant generalized cortical atrophy including hippocampal atrophy on MRI brain is concerning for a neurodegenerative condition such as Alzheimer's disease. Possibility of comorbid LBD remains but difficult to distinguish given complex history. Education provided on disease including course/progression, healthy lifestyle, etc. We discussed and agreed upon the following plan of care. Plan: Continue Aricept 5 mg once daily with breakfast for cognitive and behavioral symptoms of dementia. Please continue to monitor heart rate at home. I will update you on discussion of possible adjustment of Metoprolol dose to reduce effects on slowing heart rate and allow continuation of Aricept since this has been effective for cognitive/behavioral symptoms of dementia We will consider addition of Namenda in the future Look into emergency response systems to improve safety at home Cognitively healthy lifestyle. See the section below Ways to keep your brain healthy A heart healthy diet is a brain healthy diet. The MIND Diet is an evidence based diet proven to slow and protect against cognitive decline. See the section MIND Diet Guidelines below for more information. Follow up with me in 3 months Current treatment plan includes: Buspar 15 mg twice daily Zyprexa 2.5 mg 1 - 2 tablets at bedtime Aricept 5 mg daily with breakfast Initiate Namenda Estimated Creatinine Clearance: 82.2 mL/min (based on SCr of 0.83 mg/dL). (Ok for possible initiation of Namenda) Today Gaston shares that Marilynn present with patient. She reports that the medications started by Ulysses have helped with the delusions. Taking Aricept and Memantine as ordered. Denies side effects or hallucinations but admits he seems more confused or forgetful when he is tired. Remembers items better such as keys, phone, etc. When leaving the house but Gaston admits that he forgets conversations easily. This is the most bothersome to him. Still dreaming a lot but this is not new for him. States he can remember things back from grade school days but short term memory formation is more difficult. Getting good sleep with taking the Zyprexa at HS. Anxiety is better. Only needing to take Buspar once a day in the morning. Still having trouble with chores such as doing dishes, putting his chainsaw together, etc. Ongoing problem for the past few years. No worse then usual. Oriented to self and day of week but not month or year. States he becomes frustrated and gives up too quick on things at times. 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 Did not do driving evaluation as planned. Still driving locally without difficulty: doctor appts, cheondoism, gym. Denies instances of getting lost while driving. Interval Progress: (more content not included)... [facility] 07-10-2024 History of Present illness Narrative Images from the original note were not included. FOLLOW UP - PSYCHIATRIC PROGRESS NOTE PATIENT: Gaston Lainez DATE: July 10, 2024 Visit Type:In person All information is from Patient report except when noted. This evaluation is NOT intended for forensic, disability or child custody purposes. I, Alexus Naik APRN.JUSTICE, personally performed the services described in this documentation. All medical record entries made by the [employer] student were at my direction and in my presence. I have reviewed the chart and discharge instructions (if applicable) and agree that the record reflects my personal performance and is accurate and complete. Alexus Naik APRN.CNP July 16, 2024 3:59 PM CC: Presenting today for follow up regarding psychiatric medication management. HPI: Treatment Plan from Last Visit on 05/24/24 with Ulysses Hale APRN, CNP Copied and pasted in italics below SUBJECTIVE Gaston Lainez is a 73 year old male seen today for a follow up visit. Gaston Lainez is being followed for Major neurocognitive disorder, likely multifactorial given complex history of TBI, bipolar disorder with psychotic episodes, but significant generalized cortical atrophy including hippocampal atrophy on MRI brain is concerning for a neurodegenerative condition such as Alzheimer's disease. Possibility of comorbid LBD remains but difficult to distinguish given complex history. Patient was last seen on . At that time the impression and agreed upon plan of care were as follows, included here in italics. (F03.90) Major neurocognitive disorder (HCC) Comment: Could not tolerate increased dose of Aricept due to bradycardia and fatigue. On 5 mg daily dose fatigue is improved but today he remains bradycardic. Underlying etiology likely multifactorial given complex history of TBI, bipolar disorder with psychotic episodes, but significant generalized cortical atrophy including hippocampal atrophy on MRI brain is concerning for a neurodegenerative condition such as Alzheimer's disease. Possibility of comorbid LBD remains but difficult to distinguish given complex history. Education provided on disease including course/progression, healthy lifestyle, etc. We discussed and agreed upon the following plan of care. Plan: Continue Aricept 5 mg once daily with breakfast for cognitive and behavioral symptoms of dementia. Please continue to monitor heart rate at home. I will update you on discussion of possible adjustment of Metoprolol dose to reduce effects on slowing heart rate and allow continuation of Aricept since this has been effective for cognitive/behavioral symptoms of dementia We will consider addition of Namenda in the future Look into emergency response systems to improve safety at home Cognitively healthy lifestyle. See the section below Ways to keep your brain healthy A heart healthy diet is a brain healthy diet. The MIND Diet is an evidence based diet proven to slow and protect against cognitive decline. See the section MIND Diet Guidelines below for more information. Follow up with me in 3 months Current treatment plan includes: Buspar 15 mg twice daily Zyprexa 2.5 mg 1 - 2 tablets at bedtime Aricept 5 mg daily with breakfast Initiate Namenda Estimated Creatinine Clearance: 82.2 mL/min (based on SCr of 0.83 mg/dL). (Ok for possible initiation of Namenda) Today Gaston shares that Marilynn present with patient. She reports that the medications started by Ulysses have helped with the delusions. Taking Aricept and Memantine as ordered. Denies side effects or hallucinations but admits he seems more confused or forgetful when he is tired. Remembers items better such as keys, phone, etc. When leaving the house but Gaston admits that he forgets conversations easily. This is the most bothersome to him. Still dreaming a lot but this is not new for him. States he can remember things back from grade school days but short term memory formation is more difficult. Getting good sleep with taking the Zyprexa at HS. Anxiety is better. Only needing to take Buspar once a day in the morning. Still having trouble with chores such as doing dishes, putting his chainsaw together, etc. Ongoing problem for the past few years. No worse then usual. Oriented to self and day of week but not month or year. States he becomes frustrated and gives up too quick on things at times. 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 Did not do driving evaluation as planned. Still driving locally without difficulty: doctor appts, cheondoism, gym. Denies instances of getting lost while driving. Interval Progress: Slightly improved PATIENT DATA: Generalized Anxiety Disorder Scale (MARTELL-7) 04/23/2021 09/20/2023 12/27/2023 MARTELL - 7 SCORES Score 19 21 7 (0-4) minimal anxiety, (5-9) mild anxiety, (10-14) moderate anxiety, (15-21) severe anxiety Patient Health Questionnaire (PHQ-9) 05/04/2023 09/20/2023 12/27/2023 PHQ-9 Score 14 21 10 (0-4) minimal depression, (5-9) mild depression, (10-14) moderate depression, (15-19) moderately severe depression, (20-27) severe depression PAST MEDICAL HISTORY Diagnosis Date Abnormal stress echocardiogram 01/14/2021 01/21/[address] Barragan: right dominant. LMT min luminal, LAD mild diffuse, LCx mild luminal with large caliber nondominant vessel extending into a single large obtuse marginal branch, proximal vessel is mildly calcified +mild luminal irreg, RCA 40% Large-caliber dominant vessel: moderate calcification from the proximal to mid vessel, mild diffuse ectatic disease proximal.The ostium of the Anxiety state, unspecified 10/24/2007 Benign paroxysmal positional vertigo one remote episode Bunion Chronic obstructive asthma, unspecified 10/24/2007 Depression likely bipolar disorder Depressive disorder, not elsewhere classified 10/24/2007 Generalized anxiety disorder 10/24/2007 History of marijuana use 03/02/2016 Quit 08/2015 Hypermobility syndrome Mild coronary artery disease Mixed hyperlipidemia 11/27/2008 Nontraumatic rupture of tendons of biceps (long head) R, 10/07 L OCD (obsessive compulsive disorder) Pneumonia, organism unspecified(486) 11/2001 bilateral: cleared Primary insomnia 03/02/2016 PAST SURGICAL HISTORY Procedure Laterality Date COLONOSCOPY FLX DX W/COLLJ SPEC WHEN PFRMD 09/21/2006 repeat due 2016 COLONOSCOPY FLX DX W/COLLJ SPEC WHEN PFRMD 04/22/2020 Colonoscopy COLSC FLX W/RMVL OF TUMOR POLYP LESION SNARE TQ 04/19/2017 2 adenomatous polyps - ESOPHAGOGASTRODUODENOSCOPY TRANSORAL DIAGNOSTIC 07/23/2019 EGD EXCISION OF BENIGN LESION GREATER THAN 1.25 CM 03/29/2000 tongue and lip lesions: fibroma; nose: sebaceous hyperplasia PAST SURGICAL HISTORY OF repair flexor tendon left thumb PAST SURGICAL HISTORY OF Left 09/03/2019 Dr. medina [facility]: left CTR and tenosynovectomy at wrist level PAST SURGICAL HISTORY OF Left 04/29/2021 Left median nerve release at the elbow and forearm, Dontae Medina MD, [facility] ROTATOR CUFF REPAIR 2008 left ROTATOR CUFF REPAIR 04/22/2016 right VASECTOMY UNI/BI SPX W/POSTOP SEMEN EXAMS ALLERGIES No Known Allergies Current Outpatient Medications on File Prior to Visit Medication Sig memantine (NAMENDA) 10 mg tablet Take 1 tablet by mouth two times a day. Week One: take 1/2 tablet (5mg) in the morning Week Two: take 1/2 tablet (5mg) in the morning and take 1/2 tablet (5mg) in the evening Week Three: take 1 tablet (10mg) in the morning and take 1/2 tablet (5mg) in the evening Week Four: take 1 tablet (10mg) in the morning and take 1 tablet (10mg) in the evening -this is the full dose atorvastatin (LIPITOR) 40 mg tablet Take 1 tablet by mouth once daily. busPIRone (BUSPAR) 15 mg tablet Take 1 tablet by mouth two times a day. donepezil (ARICEPT) 5 mg tablet Take 1 tablet by mouth daily with breakfast. tamsulosin (FLOMAX) 0.4 mg Take 1 capsule by mouth daily at bedtime. Patient should start on April 02, 2024. Tadalafil (CIALIS) 10 mg tablet 1-2 tabs daily as needed predniSONE (DELTASONE) 20 mg tablet Take 60 mg by mouth once daily. OLANZapine (ZYPREXA) 2.5 mg tablet use 1 to 2 tablets at bedtime fluticasone-salmeterol (WIXELA INHUB) 250-50 mcg/dose inhaler Inhale 1 Puff as instructed two times a day. albuterol HFA (VENTOLIN HFA) 90 mcg/actuation inhaler Inhale 2 Puffs as instructed every 4 hours as needed for wheezing/shortness of breath. OTC PRODUCT Take 1 tablet by mouth once daily. PREVAGEN REGULAR STRENGTH MULTIVITAMIN ORAL Take by mouth once daily. docusate sodium (COLACE) 100 mg capsule Take 1 capsule by mouth twice daily. polyethylene glycol 3350 (MIRALAX) 17 gram/dose powder 17g (1 scoop) with 8 oz daily as needed for constipation No current facility-administered medications on file prior to visit. ROS: See HPI PFSH: See HPI VITAL SIGNS: 07/10/24 1440 BP: 120/60 Pulse: 60 Resp: 16 Weight: 77.6 kg (171 lb) Last 3 Encounter BP Readings: Date: BP: 07/10/2024 120/60 06/18/2024 132/80 05/24/2024 128/73 MENTAL STATUS EXAMINATION: Appearance: Well dressed, well groomed Behavior: Behaves appropriately during the encounter Social relatedness: Euthymic Speech/Language: The patient demonstrates appropriate tone, prosody, veena, phonetics, and syntax Mood: euthymic Affect: Full and appropriate to topic Orientation: Person, Place, and Situation. Not oriented to month/date. Associations: Intact and linear Hallucinations: mild. Occurs at times when tired. Delusions: None Suicidal Ideation: No suicidal ideation, intent or plan. Homicidal Ideation: No homicidal ideation, intent or plan. Insight: Appropriate Judgment: Appropriate DATA REVIEWED: Psychiatric scales, Electronic medical record, and labs. DIAGNOSIS: Neurocognitive disorder (primary encounter diagnosis) Delusions (hcc) Mood disorder (hcc) Visual hallucinations Generalized anxiety disorder Encounter for long-term (current) use of medications GAF: -60-51 Moderate symptoms or moderate difficulty in social, occupational or school functioning. TREATMENT PLAN: Continue Namenda, Aricept and Zyprexa as ordered. Continue Buspar but ok to take only once a day if 2nd dose not needed Consult placed for speech therapy for cognitive speech decline/recall deficit 4. Follow up 3 months. 5. Reach out if questions or concerns prior. MEDICATION CHANGES: Current medication regimen unchanged. Risks and benefits of the medication, including any black box warnings, were discussed with the patient. Patient is aware to reach out with any questions, concerns, or worsening of symptoms prior to the next appointment. Patient educated on risks of substance use in combination with medications and advised that any substance use along with medications may alter their effectiveness. Follow Up: See Treatment Plan Medical Decision Making: Problems: Moderate: 2+ stable chronic illnesses Data: Unique source(s) for external note(s) reviewed: 2 Assessment requiring an independent historian(s) Discussed management or test w/ external physician/QHCP/source Risk: Moderate: Moderate risk from testing/treatment and Drug management Medical Decision Making Level: 4 - Moderate ADD ON PSYCHOTHERAPY CODE : No SIGNATURE: Alexus Naik APRN.CNP PATIENT NAME: Gaston Lainez DATE: July 10, 2024 TIME: 2:46 PM documented in this encounter [facility] 06-18-2024 Note HNO ID: [id number] Author: CHINO KATZ PA Service: ? Author Type: Physician Isotope Hydrologist Type: Progress Notes Filed: 06/18/2024 08:03 Note Text: 73-year-old male presents for left-sided neck pain. Patient states that he was lifting something on Tuesday and felt like a vein popped in his neck. He states that his vein is protruding more than the right side. He has never noticed this in the past. He has a little bit of pain and a small bruise present. Discussed limitations of express care, recommend evaluation in the emergency room. Patient does have more prominent jugular vein on the left, unsure of significance? But he is complaining of left-sided neck pain over that area. Recommend ER evaluation. [facility] 06-18-2024 History of Present illness Narrative 73-year-old male presents for left-sided neck pain. Patient states that he was lifting something on Tuesday and felt like a vein popped in his neck. He states that his vein is protruding more than the right side. He has never noticed this in the past. He has a little bit of pain and a small bruise present. Discussed limitations of express care, recommend evaluation in the emergency room. Patient does have more prominent jugular vein on the left, unsure of significance? But he is complaining of left-sided neck pain over that area. Recommend ER evaluation. documented in this encounter [facility] 05-24-2024 Instructions Shawanda Hale APRN.[facility] - 05/24/2024 11:34 AM EDT Thank you for meeting with me today. Here is the plan we discussed. I recommend starting Namenda, also known as memantine, for your memory. We will slowly increase the medication over the course of four weeks to reduce the risk of side effects, as follows. Week 1: Take half tablet (5 mg) once daily in the morning Week 2: Take half tablet (5 mg) twice daily Week 3: Take full tablet (10 mg) in the morning and half tablet (5 mg) in the evening Week 4: Take full tablet (10 mg) twice daily Monitor for side effects, particularly: Increased confusion Headache Dizziness Diarrhea or constipation Please contact us by [employer] or call our office (menu option #4) if you notice these or any other unpleasant effects. Continue other medications as prescribed, including Aricept at reduced dose of 5 mg once daily. Cognitively healthy lifestyle. See the section below Ways to keep your brain healthy A heart healthy diet is a brain healthy diet. The MIND Diet is an evidence based diet proven to slow and protect against cognitive decline. See the section MIND Diet Guidelines below for more information. Follow up in 3 - 4 months with CARROL Paredes If you need to cancel/reschedule appointments please call [phone]. If you need to reach our office for any reason prior to your next visit, please contact us through [employer] or call [phone]. Ulysses Hale RN-MSN, [facility] Psychiatric Mental Health Nurse Practitioner [facility] Ways to keep your brain healthy: Follow up regularly with your primary care and other providers to ensure your vascular risk factors (blood pressure, blood sugar, sleep apnea, and cholesterol levels, etc.) are well controlled. Eat a healthy diet, foods that are good for your heart are also good for your brain. It is also important to drink plenty of water to stay hydrated. Exercise - as little as 20 minutes of exercise per day (150 minutes per week) - has been shown to have a positive effect on memory and cognitive function. Maintain an active social life. Get 7-8 hours of sleep per night. If you nap during the day, try to keep napping to a regular schedule. Maintain a predictable and regular daily routine. Try learning new hobbies, games, or skills. Keep your brain active with reading, puzzles, and games. Please refer to healthybrains.org website. It provides evidence based education on diet, exercise and activities that have benefit for memory. MIND Diet guidelines: - Eat 1/2 cup berries, especially blueberries and strawberries, at least 2x per week. - Eat 1 handful (1/4 cup) nuts at least 5x per week. Include walnuts. - Eat 100% whole grains 3x per day (brown rice, wild rice, black rice, quinoa, barley, bulgur, farro, rolled oats, steel cut oats, amaranth, spelt, millet, wheat berries). - Eat 1-2 cups of leafy greens at least 6x per week (spinach, arugula, kale, mustard greens, carolyne greens, dandelion greens, shanta lettuce). - Eat at least 1 other vegetable (other than dark leafy greens) every day. - Eat 1/2 cup beans or lentils at least 3x per week. - Eat fish at least once per week. Choose low mercury fish: salmon, sardines, anchovies, armenta, halibut, scallops. Avoid fried fish and fish high in mercury (swordfish, Bulgarian sea guthrie, orange roughy, ahi tuna, albacore (white) tuna). Choose light/skipjack tuna instead of white tuna, and limit to 2 servings/week because it has some mercury. - Eat chicken at least 2x per week. - Extra virgin olive oil is the primary oil used at home for cooking and on salads. - Limit margarine and butter to less than 1 Tbsp per day. - Limit red meat and processed meats to less than 4x per week. Red meat: beef, pork, feliz, venison, veal, bison. Processed meats: barber, hotdogs, salami, sausage, pepperoni, pastrami, cold cuts, ham - Limit sweets, candy, and pastries to less than 5x per week. - Limit cheese to 1 serving per week or less. 1 serving = 1 ounce. - Limit alcohol to 1 drink per day for women and 2 drinks per day for men. - Avoid fried foods and fast foods. Other sources of information and support: When there is a diagnosis of memory problems, no matter the type, we encourage families to educate themselves, learn communication tips, and learn ways to adjust expectations over time. There are many resources available online. Three excellent resources are: The Alzheimer's Association (web site: alz.org/barba) available 24 hours a day, 7 days per week. Contact: Local: ; Toll free: [phone] Family Caregiver [place] (web site: Caregiver.org) HEATHER Jung-- a secure online solution for quality information, support, and resources for family caregivers. Contact: Toll-free number: [phone] Alzheimers.gov - Find Alzheimer disease and related dementias information, resources, research and more. documented in this encounter [facility] 05-24-2024 History of Present illness Narrative Gaston Lainez 1950 [id number] [facility] [address] [facility] FOLLOW-UP NOTE Accompanied by: spouse (Marilynn) Advanced Directives: non on file SUBJECTIVE Gaston Lainez is a 73 year old male seen today for a follow up visit. Gaston Lainez is being followed for Major neurocognitive disorder, likely multifactorial given complex history of TBI, bipolar disorder with psychotic episodes, but significant generalized cortical atrophy including hippocampal atrophy on MRI brain is concerning for a neurodegenerative condition such as Alzheimer's disease. Possibility of comorbid LBD remains but difficult to distinguish given complex history. Patient was last seen on . At that time the impression and agreed upon plan of care were as follows, included here in italics. (F03.90) Major neurocognitive disorder (HCC) Comment: Could not tolerate increased dose of Aricept due to bradycardia and fatigue. On 5 mg daily dose fatigue is improved but today he remains bradycardic. Underlying etiology likely multifactorial given complex history of TBI, bipolar disorder with psychotic episodes, but significant generalized cortical atrophy including hippocampal atrophy on MRI brain is concerning for a neurodegenerative condition such as Alzheimer's disease. Possibility of comorbid LBD remains but difficult to distinguish given complex history. Education provided on disease including course/progression, healthy lifestyle, etc. We discussed and agreed upon the following plan of care. Plan: Continue Aricept 5 mg once daily with breakfast for cognitive and behavioral symptoms of dementia. Please continue to monitor heart rate at home. I will update you on discussion of possible adjustment of Metoprolol dose to reduce effects on slowing heart rate and allow continuation of Aricept since this has been effective for cognitive/behavioral symptoms of dementia We will consider addition of Namenda in the future Look into emergency response systems to improve safety at home Cognitively healthy lifestyle. See the section below Ways to keep your brain healthy A heart healthy diet is a brain healthy diet. The MIND Diet is an evidence based diet proven to slow and protect against cognitive decline. See the section MIND Diet Guidelines below for more information. Follow up with me in 3 months Current treatment plan includes: Buspar 15 mg twice daily Zyprexa 2.5 mg 1 - 2 tablets at bedtime Aricept 5 mg daily with breakfast Initiate Namenda Estimated Creatinine Clearance: 82.2 mL/min (based on SCr of 0.83 mg/dL). (Ok for possible initiation of Namenda) Today, the patient/caregiver reports the following changes/concerns in the interim. CC: I think we are here to adjust the medication - spouse Good response to decrease in Aricpet to 5mg. Today's pulse is 56. Checking HR at home occasionally and spouse said it appears to be a good change, HR gets back up to the 70's and decreased fatigue. Denies lightheadedness/dizziness. Reports more difficulty remembering names. Still may awaken from dreams and thinks something has happened which hasn't, easy to reorient. Enjoys spending time with family, goes to gym 3-4 days a week, light house work and yard work Recent pneumonia - no hospitalization and no increase in confusion Other Interval history: Memory/Cognition: Patient describes their memory/cognition as not so bad Family reports stable, spouse reports when he is tired memory/confusion is worse Functional Status: stable in the interim 5. Activities of Daily Living [place] Index of [place] in Activities of Daily Living (A.D.L.) Bathing: Bathes self completely or needs help in bathing only a single part of the body such as the back, genital area or disabled extremity. (1 POINT) Dressing: Get clothes from closets and drawers and puts on clothes and outer garments complete with fasteners. May have help tying shoes. (1 POINT) Toileting: Goes to toilet, gets on and off, arranges clothes, cleans genital area without help. (1 POINT) Transferring: Moves in and out of bed or chair unassisted. Mechanical transfer aids are acceptable. (1 POINT) Continence: Exercises complete self-control over urination and defecation. (1 POINT) Feeding: Gets food from plate into mouth without help. Preparation of food may be done by another person. (1 POINT) -Score: 6 (higher is more independent, 0-7) [place] - [place] Instrumental Activities of Daily Living Scale (I.A.D.L.) Ability to Use Telephone: Answers telephone but does not dial (1 POINT) Shopping: Completely unable to shop (0 POINTS) Food Preparation: Needs to have meals prepared and served (0 POINTS) Housekeeping: Performs light daily tasks such as dish washing, bed making (1 POINT) Laundry: All laundry must be done by others (0 POINTS) Mode of Transportation: Does not travel at all (0 POINTS) Responsibility for Own Medications: Is not capable of dispensing own medication (0 POINTS) Ability to Handle Finances: Incapable of handling money (0 POINTS) -Score: 2 (higher is more independent, 0-8) *light house work and mowing lawn *more difficulty recently using phone Functional Assessment: independent with ADLs and mostly dependent with IADLs Living Situation & Setting: house, with spouse Is the patient left alone? yes Social Work or other Agencies involved: DISHA Banuelos see 02/06/24 note Safety Assessment: Emergency Response/Aware of 911: I would call someone at home first knows to call fire department but doesn't know 911 Medical Alert System: none, provided info on emergency response systems Driving Status/Concerns: not driving Wandering behavior: none Firearms access: hunting rifles/locked, unloaded Mood: Patient describes their mood as pretty good. Spouse reports more depression. Patient states he feels down sometimes. 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 Behavior: Psychomotor Agitation: occasionally pacing/restless, they report Buspar dosing twice daily helps reduce this Aggression: No Irritability: No Lability: No Disinhibition/socially inappropriate behavior/change in personality: No Parkinsonism: Tremor/Bradykinesia/Rigidity/Freezing: Postural Instability (Impaired Balance and Coordination) and gait instability - spouse reports much more noticeable and slower movement Psychosis: Delusions: None, confusional awakenings Hallucinations: None Present SI/HI/PDW: No Obsessions, compulsions, or hoarding behaviors: nothing more than normal for him - spouse, states he can get obsessed with cleaning Sleep: described as normal, feels rested upon waking. Occasionally naps. Spouse reports increased anxiety at bedtime which can keep him up occasionally. Sometimes waking confused thinking something he may have been dreaming about is really happening - Spouse reorients him effectively. Reports potentially some dream enactment type behavior, he was boxing in the recliner the other day Appetite/eating disturbance/behaviors: normal, needs some encouragement to eat occasionally Weight loss/gain: No Physical activity: Program: Moderate regular exercise program 3-4 days/week Falls in the interim: no Use of assistive device: none ETOH use: one glass of red wine daily, occasionally one beer Caregiver Stress/[place]: yes, but improvement with improved symptom control Past medical history, social history, allergies, and full medication list reviewed by Shawanda Hale APRN.[facility] --------- REVIEW OF SYSTEMS: Weight change/Appetite: none Hearing: corrected with hearing aids Vision: grossly intact Change in memory problems : yes, see HPI Constipation, Diarrhea: denies Incontinence: none Chest pain, PND, orthopnea: none Edema: none Dyspnea: none Presence of pain and effect on function? Back pain and left hip pain Falls/injuries/accidents: none NEURO: SEE HPI OBJECTIVE Physical Exam: Vital Signs: BP 128/73 Pulse (!) 56 Ht 182.9 cm (6') Wt 74.4 kg (164 lb) BMI 22.24 kg/m Neurological Exam Reflexes Deep tendon reflexes graded by MRC Mental Status Exam: Cognition & Orientation:alert and oriented to self, knows the city Appearance: normal grooming and appropriately attired Eye contact: normal Facial expression: neutral Psychomotor: normal Speech/Language: fluent, circumstantial Mood: pretty good Affect: restricted Thought Process: loose associations, vague Thought Content: no delusions Hallucinations: Patient Denies, None Noted Judgment: impaired due to dementia and lack of insight Insight: poor Vowinckel Cognitive Assessment (MoCA) Will not reassess MoCA due to significant global cognitive impairment. Diagnostic Results Reviewed: LABS: Lab Results Component Value Date TSH 1.620 11/26/2022 B12 1,406 (H) 06/10/2023 FOLATE 18.4 05/05/2023 MOCA: 12/19/2023 MoCA MOCA TOTAL SCORE 7 out of 30 Visuospatial/ Executive 1 Naming 3 Attention 1 Language 0 Abstraction 0 Delayed Recall 0 Orientation 1 Education Level 1 MRI BRAIN IMAGING REVIEW: 01/20/2024 8:23 AM - Radiology, [facility] [facility] IMPRESSION: * No apparent acute intracranial process or intracranial mass. * Moderate generalized cortical volume loss and mild generalized white matter volume loss. * Hippocampal volumes at the third percentile when compared to age matched normal controls by quantitative analysis. * Minimal white matter disease which is nonspecific but likely reflective of chronic microvascular ischemia. * No evidence of parenchymal microhemorrhages by MRI. CSF Testing: none Neuropsychology Testing: none IMPRESSION/ASSESSMENT/PLAN: (F03.90) Major neurocognitive disorder (HCC) Comment: Underlying etiology likely multifactorial given complex history of TBI, bipolar disorder with psychotic episodes, but significant generalized cortical atrophy including hippocampal atrophy on MRI brain is concerning for a neurodegenerative condition such as Alzheimer's disease. Possibility of comorbid LBD remains but difficult to distinguish given complex history. Tolerated reduced dose of 5 mg Aricept, bradycardia and fatigue improved. Cognitively, functionally, and behaviorally stable in the interim. Independent with ADLs and assistance/ dependent with IADLs. We discussed and agreed upon the following plan of care. Plan: I recommend starting Namenda, also known as memantine, for your memory. We will slowly increase the medication over the course of four weeks to reduce the risk of side effects, as follows. Week 1: Take half tablet (5 mg) once daily in the morning Week 2: Take half tablet (5 mg) twice daily Week 3: Take full tablet (10 mg) in the morning and half tablet (5 mg) in the evening Week 4: Take full tablet (10 mg) twice daily Continue other medications as prescribed, including Aricept at reduced dose of 5 mg once daily. Cognitively healthy lifestyle. See the section below Ways to keep your brain healthy A heart healthy diet is a brain healthy diet. The MIND Diet is an evidence based diet proven to slow and protect against cognitive decline. See the section MIND Diet Guidelines below for more information. Follow up in 3 - 4 months with [facility] Emergency Response Systems: -The purpose of an Emergency Response System (such as [employer] or [employer]) is to increase safety in the home. In the event of a fall or an emergency, help is available at the push of a button. The Personal Help Button connects you to a trained Personal Response Associate who can send help quickly - 24 hours a day, seven days a week. Response Link: 945.946.6307; Lifeline: 627.203.5008 x 3012. [place]ively: . (R44.1) Visual hallucinations Plan: donepezil (ARICEPT) 5 mg tablet (R45.1) Restlessness and agitation Plan: donepezil (ARICEPT) 5 mg tablet (F22) Delusions (HCC) Plan: donepezil (ARICEPT) 5 mg tablet Risks and benefits of medication(s), including any black box warnings, were discussed with the patient. I spent a total of 45 minutes on the date of the service which included preparing to see the patient, [id number] patient care, completing clinical documentation, obtaining and/or reviewing separately obtained history, counseling and educating the patient/family/caregiver, and ordering medications, tests, or procedures. ADD ON PSYCHOTHERAPY CODE: Alie Sanchez RN Psychiatric Mental Health Nurse Practitioner Student TEACHING [facility] NOTE OF PERSONAL INVOLVEMENT IN CARE: I have personally seen and examined the patient and performed the medical decision-making components. I have reviewed Codi Sanchez RN, [facility] student's documentation and verified the findings in the note as written. Edits or additions have been made by myself as required. The patient/caregiver agreed to allow the PMHNP student to participate in the evaluation. Ulysses Hale RN-MSN, PROMOTIONS REPRESENTATIVE Psychiatric Mental Health Nurse Practitioner [facility] May 24, 2024 CC: 1. M Jimmie Mckinley PA-C, (fax) [phone] documented in this encounter [facility] 05-24-2024 Note HNO ID: [id number] Author: SHAWANDA HALE APRN.CNP Service: ? Author Type: Nurse Practitioner Type: Progress Notes Filed: 05/24/2024 11:45 Note Text: Gaston Lainez 1950 [id number] [facility] [address] [facility] FOLLOW-UP NOTE Accompanied by: spouse (Marilynn) Advanced Directives: non on file SUBJECTIVE Gaston Lainez is a 73 year old male seen today for a follow up visit. Gaston Lainez is being followed for Major neurocognitive disorder, likely multifactorial given complex history of TBI, bipolar disorder with psychotic episodes, but significant generalized cortical atrophy including hippocampal atrophy on MRI brain is concerning for a neurodegenerative condition such as Alzheimer's disease. Possibility of comorbid LBD remains but difficult to distinguish given complex history. Patient was last seen on . At that time the impression and agreed upon plan of care were as follows, included here in italics. (F03.90) Major neurocognitive disorder (HCC) Comment: Could not tolerate increased dose of Aricept due to bradycardia and fatigue. On 5 mg daily dose fatigue is improved but today he remains bradycardic. Underlying etiology likely multifactorial given complex history of TBI, bipolar disorder with psychotic episodes, but significant generalized cortical atrophy including hippocampal atrophy on MRI brain is concerning for a neurodegenerative condition such as Alzheimer's disease. Possibility of comorbid LBD remains but difficult to distinguish given complex history. Education provided on disease including course/progression, healthy lifestyle, etc. We discussed and agreed upon the following plan of care. Plan: Continue Aricept 5 mg once daily with breakfast for cognitive and behavioral symptoms of dementia. Please continue to monitor heart rate at home. I will update you on discussion of possible adjustment of Metoprolol dose to reduce effects on slowing heart rate and allow continuation of Aricept since this has been effective for cognitive/behavioral symptoms of dementia We will consider addition of Namenda in the future Look into emergency response systems to improve safety at home Cognitively healthy lifestyle. See the section below Ways to keep your brain healthy A heart healthy diet is a brain healthy diet. The MIND Diet is an evidence based diet proven to slow and protect against cognitive decline. See the section MIND Diet Guidelines below for more information. Follow up with me in 3 months Current treatment plan includes: Buspar 15 mg twice daily Zyprexa 2.5 mg 1 - 2 tablets at bedtime Aricept 5 mg daily with breakfast Initiate Namenda Estimated Creatinine Clearance: 82.2 mL/min (based on SCr of 0.83 mg/dL). (Ok for possible initiation of Namenda) Today, the patient/caregiver reports the following changes/concerns in the interim. CC: I think we are here to adjust the medication - spouse Good response to decrease in Aricpet to 5mg. Today's pulse is 56. Checking HR at home occasionally and spouse said it appears to be a good change, HR gets back up to the 70's and decreased fatigue. Denies lightheadedness/dizziness. Reports more difficulty remembering names. Still may awaken from dreams and thinks something has happened which hasn't, easy to reorient. Enjoys spending time with family, goes to gym 3-4 days a week, light house work and yard work Recent pneumonia - no hospitalization and no increase in confusion Other Interval history: Memory/Cognition: Patient describes their memory/cognition as not so bad Family reports stable, spouse reports when he is tired memory/confusion is worse Functional Status: stable in the interim 5. Activities of Daily Living [place] Index of [place] in Activities of Daily Living (A.D.L.) Bathing: Bathes self completely or needs help in bathing only a single part of the body such as the back, genital area or disabled extremity. (1 POINT) Dressing: Get clothes from closets and drawers and puts on clothes and outer garments complete with fasteners. May have help tying shoes. (1 POINT) Toileting: Goes to toilet, gets on and off, arranges clothes, cleans genital area without help. (1 POINT) Transferring: Moves in and out of bed or chair unassisted. Mechanical transfer aids are acceptable. (1 POINT) Continence: Exercises complete self-control over urination and defecation. (1 POINT) Feeding: Gets food from plate into mouth without help. Preparation of food may be done by another person. (1 POINT) -Score: 6 (higher is more independent, 0-7) [place] - [place] Instrumental Activities of Daily Living Scale (I.A.D.L.) Ability to Use Telephone: Answers telephone but does not dial (1 POINT) Shopping: Completely unable to shop (0 POINTS) Food Preparation: Needs to have meals prepared and served (0 POI (more content not included)... [facility] 05-24-2024 Nurse Note Gaston Lainez is a 73 year old year old man accompanied by: patient and spouse. Do you have any changes or new concerns you would like to address at the visit today? No concerns today here for followup Vital Signs: Ht 182.9 cm (6') Wt 74.4 kg (164 lb) BMI 22.24 kg/m [facility] 05-24-2024 Nurse Note Gaston Lainez is a 73 year old year old man accompanied by: patient and spouse. Do you have any changes or new concerns you would like to address at the visit today? No concerns today here for followup Vital Signs: Ht 182.9 cm (6') Wt 74.4 kg (164 lb) BMI 22.24 kg/m documented in this encounter [facility] 05-21-2024 Instructions Krunal Barragan MD - 05/21/2024 9:02 AM EDT We are stopping the Metoprolol Succinate documented in this encounter [facility] 05-21-2024 History of Present illness Narrative Images from the original note were not included. [facility] SECTION OF REGIONAL CARDIOLOGY Cardiology ([facility]) [address] [id number] OUTPATIENT VISIT DATE 05/21/2024 PRIMARY CARE PHYSICIAN: Elif Mckinley [address] [place] [address] HISTORY OF PRESENT ILLNESS: Mr. Lainez is a 73 year old gentleman who had a cardiac catheterization due to abnormal stress test and chest pain in December 2020. He was found to have diffuse calcified nonobstructive coronary disease. He is also treated for borderline hypertension and dyslipidemia. He presents the office for routine follow-up. Patient was developing slow heart rates on metoprolol. Dose was decreased to 12.5 mg daily. He has been doing well from a functional standpoint. He denies symptoms concerning for lightheadedness, dizziness, syncope, or near syncope. He has not had symptoms concerning for CHF including PND, orthopnea, or lower extremity edema. PAST MEDICAL HISTORY Diagnosis Date Abnormal stress echocardiogram 01/14/2021 01/21/[address] Barragan: right dominant. LMT min luminal, LAD mild diffuse, LCx mild luminal with large caliber nondominant vessel extending into a single large obtuse marginal branch, proximal vessel is mildly calcified +mild luminal irreg, RCA 40% Large-caliber dominant vessel: moderate calcification from the proximal to mid vessel, mild diffuse ectatic disease proximal.The ostium of the Anxiety state, unspecified 10/24/2007 Benign paroxysmal positional vertigo one remote episode Bunion Chronic obstructive asthma, unspecified 10/24/2007 Depression likely bipolar disorder Depressive disorder, not elsewhere classified 10/24/2007 Generalized anxiety disorder 10/24/2007 History of marijuana use 03/02/2016 Quit 08/2015 Hypermobility syndrome Mild coronary artery disease Mixed hyperlipidemia 11/27/2008 Nontraumatic rupture of tendons of biceps (long head) R, 10/07 L OCD (obsessive compulsive disorder) Pneumonia, organism unspecified(486) 11/2001 bilateral: cleared Primary insomnia 03/02/2016 PAST SURGICAL HISTORY Procedure Laterality Date COLONOSCOPY FLX DX W/COLLJ SPEC WHEN PFRMD 09/21/2006 repeat due 2016 COLONOSCOPY FLX DX W/COLLJ SPEC WHEN PFRMD 04/22/2020 Colonoscopy COLSC FLX W/RMVL OF TUMOR POLYP LESION SNARE TQ 04/19/2017 2 adenomatous polyps - ESOPHAGOGASTRODUODENOSCOPY TRANSORAL DIAGNOSTIC 07/23/2019 EGD EXCISION OF BENIGN LESION GREATER THAN 1.25 CM 03/29/2000 tongue and lip lesions: fibroma; nose: sebaceous hyperplasia PAST SURGICAL HISTORY OF repair flexor tendon left thumb PAST SURGICAL HISTORY OF Left 09/03/2019 Dr. medina [facility]: left CTR and tenosynovectomy at wrist level PAST SURGICAL HISTORY OF Left 04/29/2021 Left median nerve release at the elbow and forearm, Dontae Medina MD, [facility] ROTATOR CUFF REPAIR 2008 left ROTATOR CUFF REPAIR 04/22/2016 right VASECTOMY UNI/BI SPX W/POSTOP SEMEN EXAMS SOCIAL HISTORY Social History Tobacco Use Smoking status: Former Current packs/day: 0.00 Average packs/day: 0.5 packs/day for 9.0 years (4.5 ttl pk-yrs) Types: Cigarettes Start date: 11/01/1967 Quit date: 10/31/1976 Years since quittin.5 Smokeless tobacco: Never Vaping Use Vaping status: Never Used Substance Use Topics Alcohol use: Yes Alcohol/week: 7.0 standard drinks of alcohol Types: 7 Glasses of wine per week Drug use: Not Currently Comment: marijuana use, has used inhalants FAMILY HISTORY Problem Relation Age of Onset Heart Mother age 66, CA, SLE other (lupus) Mother diagnosed age 49 Heart Father age 84, CHF other (G6PD) Sister G6PD Diabetes Brother 1/2 brother Hypertension Brother 1/2 brother Colon Cancer Brother rectal cancer? 1/2 brother ALLERGIES: ALLERGIES No Known Allergies MEDICATIONS: atorvastatin (LIPITOR) 40 mg tablet Take 1 tablet by mouth once daily. busPIRone (BUSPAR) 15 mg tablet Take 1 tablet by mouth two times a day. donepezil (ARICEPT) 5 mg tablet Take 1 tablet by mouth daily with breakfast. tamsulosin (FLOMAX) 0.4 mg Take 1 capsule by mouth daily at bedtime. Patient should start on April 02, 2024. Tadalafil (CIALIS) 10 mg tablet 1-2 tabs daily as needed predniSONE (DELTASONE) 20 mg tablet Take 60 mg by mouth once daily. (Patient not taking: Reported on 04/27/2024) OLANZapine (ZYPREXA) 2.5 mg tablet use 1 to 2 tablets at bedtime fluticasone-salmeterol (WIXELA INHUB) 250-50 mcg/dose inhaler Inhale 1 Puff as instructed two times a day. albuterol HFA (VENTOLIN HFA) 90 mcg/actuation inhaler Inhale 2 Puffs as instructed every 4 hours as needed for wheezing/shortness of breath. metoprolol succinate ER (TOPROL XL) 25 mg 24 hr tablet Take 1 tablet by mouth once daily. OTC PRODUCT Take 1 tablet by mouth once daily. PREVAGEN REGULAR STRENGTH (Patient not taking: Reported on 05/01/2024) MULTIVITAMIN ORAL Take by mouth once daily. docusate sodium (COLACE) 100 mg capsule Take 1 capsule by mouth twice daily. polyethylene glycol 3350 (MIRALAX) 17 gram/dose powder 17g (1 scoop) with 8 oz daily as needed for constipation REVIEW OF SYSTEMS: Review of Systems Constitutional: Negative for chills, fever, malaise/fatigue and weight loss. HENT: Negative for hearing loss and sore throat. Eyes: Negative for blurred vision and double vision. Respiratory: Negative. Cardiovascular: Negative. Genitourinary: Negative for dysuria, frequency, hematuria and urgency. Musculoskeletal: Negative. Skin: Negative. Neurological: Negative for dizziness, seizures, loss of consciousness, weakness and headaches. Endo/Heme/Allergies: Negative for environmental allergies. Does not bruise/bleed easily. Psychiatric/Behavioral: Negative for depression. PHYSICAL EXAMINATION: BP 127/86 Pulse 61 Wt 166 lb 12.8 oz (75.7kg) SpO2 98% General: Very pleasant thin gentleman sitting appears comfortable no apparent distress. He is alert and oriented x3 HEENT: Carotid upstrokes are brisk bilaterally without bruits no JVD appreciated. Pulmonary: Lungs are clear no rales, wheezes, or rhonchi. Cardiovascular: Normal S1, S2 with regularly irregular rhythm. No murmurs, rubs, or gallops appreciated. Extremities: Warm, well-perfused, 2+ distal pulses. No lower extremity edema CARDIOVASCULAR MEDICINE TESTING: ECG in the office 04/26/2022: Normal sinus rhythm with frequent PVCs in the pattern of bigeminy. No significant ST or T wave changes Cardiac Catheterization 01/21/21: Hemodynamics: LVEDP: 16 mmHg LV - AORTA: No gradient. Coronary Angiography: Left Main: Large caliber vessel mild calcification of the distal vessel no significant obstructive disease Left Anterior Descending: Large caliber vessel. Moderate calcification in the proximal mid vessel. Mild diffuse disease noted in the proximal to mid vessel. Circumflex: Large caliber nondominant vessel extending into a single large obtuse marginal branch. The proximal vessel is mildly calcified. Mild luminal irregularities noted. Right Coronary Artery: Large-caliber dominant vessel. There is moderate calcification from the proximal to mid vessel. There is mild diffuse ectatic disease in the proximal vessel. The ostium of the PDA and posterior ventricular branches has diffuse 30 to 40% luminal stenosis. ECG in the office 01/15/2021: Normal sinus rhythm with frequent PACs and occasional PVCs Q waves noted in leads V1 and V2 consistent with possible septal infarct pattern. Nonspecific ST-T wave changes. Stress Echocardiogram 01/05/21 CONCLUSIONS: - Technically difficult exam due to body habitus and COPD. - Exam indication: Shortness of Breath - The exercise stress echo was positive for ischemia at 89 % of MPHR (8.1 METS). There is ischemia in the territory of the LAD. - The left ventricle is normal in size. Left ventricular systolic function is normal. EF = 57 5% (2D biplane) Grade I left ventricular diastolic dysfunction. - The right ventricle is normal in size. Right ventricular systolic function is normal. Stress ECG Conclusion: Conclusion: Normal with exception due to Low heart rate recovery, Frequent ventricular ectopy, Exercise systolic and diastolic HTN and Low chronotropic response index Stress ECG Summary: The patient's resting heart rate was 88 bpm and blood pressure was 140/90 mmHg. The patient exercised according to the Kirt protocol. Total exercise time was 8 minutes and 40 seconds. The test was terminated due to general fatigue. The maximum heart rate was 133 bpm, which is 89% predicted for age. METs achieved was 8.1. The double product achieved was [address]. Peak heart rate was 133 bpm and peak blood pressure was 150/94 mmHg. 48 Hour Holter Monitor 05/04/2023 Sinus rhythm with frequent ventricular ectopy burden of 4%. Frequent periods of sinus bradycardia (55%). Maximum HR 93 bpm. Minimum HR 44 bpm(2205). Average HR 60 bpm. Frequent ventricular ectopy seen as multifocal, singles, couplets, triplets and bigeminal cycles. One VE run of 4 beats 104 bpm at 5:48 AM (Day 2). Rare supraventricular ectopy seen as singles, couplets, triplets and SVE runs. Longest SVE run of 11 beats 90 bpm at 10:07 AM (Day 1). Fastest SVE run of 6 beats 100 bpm at 2:58 pm (Day 2). Patient recorded symptoms Picking tomatoes, bending up and down/dizzy correlated with PVC's and NSR. Event marker was not activated. IMPRESSION: Mr. Lainez is a 72 year old gentleman with a history of mild diffuse nonobstructive coronary artery disease on cardiac catheterization December 2020, hypertension, dyslipidemia who is here for routine follow-up. PLAN AND RECOMMENDATIONS: 1. 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 Continue current medical therapy and risk factor modification 2. SVT (supraventricular tachycardia) (HCC) - ICD9: 427.89, ICD10: I47.10 Patient developing bradycardia likely secondary to multiple medications. I recommended discontinuation of Toprol. If he has increased palpitations or his concerns for SVT will make further medication recommendations 3. Palpitations - ICD9: 785.1, ICD10: R00.2 Remains asymptomatic 4. Mixed hyperlipidemia - ICD9: 272.2, ICD10: E78.2 Maintained on atorvastatin 40 mg daily. Fasting blood work from March 2024 was reviewed. LDL cholesterol 59 mg/dL. Krunal Barragan MD documented in this encounter [facility] 05-21-2024 Note HNO ID: [id number] Author: KRUNLA BARRAGAN MD Service: ? Author Type: Physician Type: Progress Notes Filed: 05/21/2024 10:40 Note Text: [facility] Cardiology ([facility] [address]) [address] [facility] [id number] OUTPATIENT VISIT DATE 05/21/2024 PRIMARY CARE PHYSICIAN: Elif Mckinley [address] [place] [address] HISTORY OF PRESENT ILLNESS: Mr. Lainez is a 73 year old gentleman who had a cardiac catheterization due to abnormal stress test and chest pain in December 2020. He was found to have diffuse calcified nonobstructive coronary disease. He is also treated for borderline hypertension and dyslipidemia. He presents the office for routine follow-up. Patient was developing slow heart rates on metoprolol. Dose was decreased to 12.5 mg daily. He has been doing well from a functional standpoint. He denies symptoms concerning for lightheadedness, dizziness, syncope, or near syncope. He has not had symptoms concerning for CHF including PND, orthopnea, or lower extremity edema. PAST MEDICAL HISTORY Diagnosis Date Abnormal stress echocardiogram 01/14/2021 01/21/[address] Barragan: right dominant. LMT min luminal, LAD mild diffuse, LCx mild luminal with large caliber nondominant vessel extending into a single large obtuse marginal branch, proximal vessel is mildly calcified +mild luminal irreg, RCA 40% Large-caliber dominant vessel: moderate calcification from the proximal to mid vessel, mild diffuse ectatic disease proximal.The ostium of the Anxiety state, unspecified 10/24/2007 Benign paroxysmal positional vertigo one remote episode Bunion Chronic obstructive asthma, unspecified 10/24/2007 Depression likely bipolar disorder Depressive disorder, not elsewhere classified 10/24/2007 Generalized anxiety disorder 10/24/2007 History of marijuana use 03/02/2016 Quit 08/2015 Hypermobility syndrome Mild coronary artery disease Mixed hyperlipidemia 11/27/2008 Nontraumatic rupture of tendons of biceps (long head) R, 10/07 L OCD (obsessive compulsive disorder) Pneumonia, organism unspecified(486) 11/2001 bilateral: cleared Primary insomnia 03/02/2016 PAST SURGICAL HISTORY Procedure Laterality Date COLONOSCOPY FLX DX W/COLLJ SPEC WHEN PFRMD 09/21/2006 repeat due 2017 COLONOSCOPY FLX DX W/COLLJ SPEC WHEN PFRMD 04/22/2020 Colonoscopy COLSC FLX W/RMVL OF TUMOR POLYP LESION SNARE TQ 04/19/2017 2 adenomatous polyps - ESOPHAGOGASTRODUODENOSCOPY TRANSORAL DIAGNOSTIC 07/23/2019 EGD EXCISION OF BENIGN LESION GREATER THAN 1.25 CM 03/29/2000 tongue and lip lesions: fibroma; nose: sebaceous hyperplasia PAST SURGICAL HISTORY OF repair flexor tendon left thumb PAST SURGICAL HISTORY OF Left 09/03/2019 Dr. medina [facility]: left CTR and tenosynovectomy at wrist level PAST SURGICAL HISTORY OF Left 04/29/2021 Left median nerve release at the elbow and forearm, Dontae Medina MD, [facility] ROTATOR CUFF REPAIR 2008 left ROTATOR CUFF REPAIR 04/22/2016 right VASECTOMY UNI/BI SPX W/POSTOP SEMEN EXAMS SOCIAL HISTORY Social History Tobacco Use Smoking status: Former Current packs/day: 0.00 Average packs/day: 0.5 packs/day for 9.0 years (4.5 ttl pk-yrs) Types: Cigarettes Start date: 11/01/1967 Quit date: 10/31/1976 Years since quittin.5 Smokeless tobacco: Never Vaping Use Vaping status: Never Used Substance Use Topics Alcohol use: Yes Alcohol/week: 7.0 standard drinks of alcohol Types: 7 Glasses of wine per week Drug use: Not Currently Comment: marijuana use, has used inhalants FAMILY HISTORY Problem Relation Age of Onset Heart Mother age 66, CA, SLE other (lupus) Mother diagnosed age 49 Heart Father age 84, CHF other (G6PD) Sister G6PD Diabetes Brother 1/2 brother Hypertension Brother 1/2 brother Colon Cancer Brother rectal cancer? 1/2 brother ALLERGIES: ALLERGIES No Known Allergies MEDICATIONS: atorvastatin (LIPITOR) 40 mg tablet Take 1 tablet by mouth once daily. busPIRone (BUSPAR) 15 mg tablet Take 1 tablet by mouth two times a day. donepezil (ARICEPT) 5 mg tablet Take 1 tablet by mouth daily with breakfast. tamsulosin (FLOMAX) 0.4 mg Take 1 capsule by mouth daily at bedtime. Patient should start on April 02, 2024. Tadalafil (CIALIS) 10 mg tablet 1-2 tabs daily as needed predniSONE (DELTASONE) 20 mg tablet Take 60 mg by mouth once daily. (Patient not taking: Reported on 04/27/2024) OLANZapine (ZYPREXA) 2.5 mg tablet use 1 to 2 tablets at bedtime fluticasone-salmeterol (WIXELA INHUB) 250-50 mcg/dose inhaler Inhale 1 Puff as instructed two times a day. albuterol HFA (VENTOLIN HFA) 90 mcg/actuation inhaler Inhale 2 Puffs as instructed every 4 hours as needed for wheezing/shortness of breath. metoprolol succinate ER (TOPROL XL) 25 mg 24 hr t (more content not included)... [facility] 05-01-2024 Instructions Leticia Harding APRN.JUSTICE - 05/01/2024 12:09 PM EDT 1) Follow up in 6 months- no need for pre-appt. labs documented in this encounter [facility] 05-01-2024 Note HNO ID: [id number] Author: LETICIA HARDING APRN.JUSTICE Service: ? Author Type: Clinical Nurse Specialist Type: Progress Notes Filed: 05/01/2024 12:09 Note Text: This is a 73 year old male who presents today with: Patient presents with: [facility] follow-up HISTORY OF PRESENT ILLNESS: Gaston Lainez is a 73 year old male. Patient presents with: [facility] follow-up Pain is better. SOB is better. Used puffer a few times. Still has antibiotic. No diarrhea. + thick cough Had a wheeze but not now. Still tired. PAST MEDICAL HISTORY: PAST MEDICAL HISTORY 01/14/2021: Abnormal stress echocardiogram Comment: 01/21/[address] Barragan: right dominant. LMT min luminal, LAD mild diffuse, LCx mild luminal with large caliber nondominant vessel extending into a single large obtuse marginal branch, proximal vessel is mildly calcified +mild luminal irreg, RCA 40% Large-caliber dominant vessel: moderate calcification from the proximal to mid vessel, mild diffuse ectatic disease proximal.The ostium of the 10/24/2007: Anxiety state, unspecified No date: Benign paroxysmal positional vertigo Comment: one remote episode No date: Bunion 10/24/2007: Chronic obstructive asthma, unspecified No date: Depression Comment: likely bipolar disorder 10/24/2007: Depressive disorder, not elsewhere classified 10/24/2007: Generalized anxiety disorder 03/02/2016: History of marijuana use Comment: Quit 08/2015 No date: Hypermobility syndrome No date: Mild coronary artery disease 11/27/2008: Mixed hyperlipidemia R, 10/07 L: Nontraumatic rupture of tendons of biceps (long head) No date: OCD (obsessive compulsive disorder) 11/2001: Pneumonia, organism unspecified(486) Comment: bilateral: cleared 03/02/2016: Primary insomnia PAST SURGICAL HISTORY 09/21/2006: COLONOSCOPY FLX DX W/COLLJ SPEC WHEN PFRMD Comment: repeat due 201604/22/2020: COLONOSCOPY FLX DX W/COLLJ SPEC WHEN PFRMD Comment: Colonoscopy 04/19/2017: COLSC FLX W/RMVL OF TUMOR POLYP LESION SNARE TQ Comment: 2 adenomatous polyps - 07/23/2019: ESOPHAGOGASTRODUODENOSCOPY TRANSORAL DIAGNOSTIC Comment: EGD 03/29/2000: EXCISION OF BENIGN LESION GREATER THAN 1.25 CM Comment: tongue and lip lesions: fibroma; nose: sebaceous hyperplasia No date: PAST SURGICAL HISTORY OF Comment: repair flexor tendon left thumb 09/03/2019: PAST SURGICAL HISTORY OF; Left Comment: Dr. medina [facility]: left CTR and tenosynovectomy at wrist level 04/29/2021: PAST SURGICAL HISTORY OF; Left Comment: Left median nerve release at the elbow and forearm, Dontae Medina MD, [facility] 2008: ROTATOR CUFF REPAIR Comment: left 04/22/2016: ROTATOR CUFF REPAIR Comment: right No date: VASECTOMY UNI/BI SPX W/POSTOP SEMEN EXAMS ALLERGIES Patient has no known allergies. MEDICATIONS Current Outpatient Medications Medication Sig doxycycline (VIBRA-TABS) 100 mg tablet Take 1 tablet by mouth two times a day for 7 days. amoxicillin-clavulanate potassium (AUGMENTIN) 875-125 mg per tablet Take 1 tablet by mouth two times a day for 7 days. donepezil (ARICEPT) 5 mg tablet Take 1 tablet by mouth daily with breakfast. tamsulosin (FLOMAX) 0.4 mg Take 1 capsule by mouth daily at bedtime. Patient should start on April 02, 2024. Tadalafil (CIALIS) 10 mg tablet 1-2 tabs daily as needed OLANZapine (ZYPREXA) 2.5 mg tablet use 1 to 2 tablets at bedtime busPIRone (BUSPAR) 15 mg tablet TAKE 1 TABLET BY MOUTH TWICE A DAY fluticasone-salmeterol (WIXELA INHUB) 250-50 mcg/dose inhaler Inhale 1 Puff as instructed two times a day. albuterol HFA (VENTOLIN HFA) 90 mcg/actuation inhaler Inhale 2 Puffs as instructed every 4 hours as needed for wheezing/shortness of breath. metoprolol succinate ER (TOPROL XL) 25 mg 24 hr tablet Take 1 tablet by mouth once daily. atorvastatin (LIPITOR) 40 mg tablet Take 1 tablet by mouth once daily. MULTIVITAMIN ORAL Take by mouth once daily. docusate sodium (COLACE) 100 mg capsule Take 1 capsule by mouth twice daily. polyethylene glycol 3350 (MIRALAX) 17 gram/dose powder 17g (1 scoop) with 8 oz daily as needed for constipation predniSONE (DELTASONE) 20 mg tablet Take 60 mg by mouth once daily. (Patient not taking: Reported on 04/27/2024) OTC PRODUCT Take 1 tablet by mouth once daily. PREVAGEN REGULAR STRENGTH (Patient not taking: Reported on 05/01/2024) No current facility-administered medications for this visit. FAMILY HISTORY Problem Relation Age of Onset Heart Mother age 66, CA, SLE other (lupus) Mother diagnosed age 49 Heart Father age 84, CHF other (G6PD) Sister G6PD Diabetes Brother 1/2 brother Hypertension Brother 1/2 brother Colon Cancer Brother rectal cancer? 1/2 brother Social History Tobacco Use Smoking status: Former Current packs/day: 0.00 Average packs/day: 0.5 packs/day for 9.0 years (4.5 ttl pk-yrs) Types: Cigarettes Start date: (more content not included)... [facility] 05-01-2024 History of Present illness Narrative This is a 73 year old male who presents today with: Patient presents with: [facility] Care follow-up HISTORY OF PRESENT ILLNESS: Gaston Lainez is a 73 year old male. Patient presents with: [facility] follow-up Pain is better. SOB is better. Used puffer a few times. Still has antibiotic. No diarrhea. + thick cough Had a wheeze but not now. Still tired. PAST MEDICAL HISTORY: PAST MEDICAL HISTORY 01/14/2021: Abnormal stress echocardiogram Comment: 01/21/[address] Barragan: right dominant. LMT min luminal, LAD mild diffuse, LCx mild luminal with large caliber nondominant vessel extending into a single large obtuse marginal branch, proximal vessel is mildly calcified +mild luminal irreg, RCA 40% Large-caliber dominant vessel: moderate calcification from the proximal to mid vessel, mild diffuse ectatic disease proximal.The ostium of the 10/24/2007: Anxiety state, unspecified No date: Benign paroxysmal positional vertigo Comment: one remote episode No date: Bunion 10/24/2007: Chronic obstructive asthma, unspecified No date: Depression Comment: likely bipolar disorder 10/24/2007: Depressive disorder, not elsewhere classified 10/24/2007: Generalized anxiety disorder 03/02/2016: History of marijuana use Comment: Quit 08/2015 No date: Hypermobility syndrome No date: Mild coronary artery disease 11/27/2008: Mixed hyperlipidemia R, 10/07 L: Nontraumatic rupture of tendons of biceps (long head) No date: OCD (obsessive compulsive disorder) 11/2001: Pneumonia, organism unspecified(486) Comment: bilateral: cleared 03/02/2016: Primary insomnia PAST SURGICAL HISTORY 09/21/2006: COLONOSCOPY FLX DX W/COLLJ SPEC WHEN PFRMD Comment: repeat due 201604/22/2020: COLONOSCOPY FLX DX W/COLLJ SPEC WHEN PFRMD Comment: Colonoscopy 04/19/2017: COLSC FLX W/RMVL OF TUMOR POLYP LESION SNARE TQ Comment: 2 adenomatous polyps - 07/23/2019: ESOPHAGOGASTRODUODENOSCOPY TRANSORAL DIAGNOSTIC Comment: EGD 03/29/2000: EXCISION OF BENIGN LESION GREATER THAN 1.25 CM Comment: tongue and lip lesions: fibroma; nose: sebaceous hyperplasia No date: PAST SURGICAL HISTORY OF Comment: repair flexor tendon left thumb 09/03/2019: PAST SURGICAL HISTORY OF; Left Comment: Dr. medina [facility]: left CTR and tenosynovectomy at wrist level 04/29/2021: PAST SURGICAL HISTORY OF; Left Comment: Left median nerve release at the elbow and forearm, Dontae Medina MD, [facility] 2009: ROTATOR CUFF REPAIR Comment: left 04/22/2016: ROTATOR CUFF REPAIR Comment: right No date: VASECTOMY UNI/BI SPX W/POSTOP SEMEN EXAMS ALLERGIES Patient has no known allergies. MEDICATIONS Current Outpatient Medications Medication Sig doxycycline (VIBRA-TABS) 100 mg tablet Take 1 tablet by mouth two times a day for 7 days. amoxicillin-clavulanate potassium (AUGMENTIN) 875-125 mg per tablet Take 1 tablet by mouth two times a day for 7 days. donepezil (ARICEPT) 5 mg tablet Take 1 tablet by mouth daily with breakfast. tamsulosin (FLOMAX) 0.4 mg Take 1 capsule by mouth daily at bedtime. Patient should start on April 02, 2024. Tadalafil (CIALIS) 10 mg tablet 1-2 tabs daily as needed OLANZapine (ZYPREXA) 2.5 mg tablet use 1 to 2 tablets at bedtime busPIRone (BUSPAR) 15 mg tablet TAKE 1 TABLET BY MOUTH TWICE A DAY fluticasone-salmeterol (WIXELA INHUB) 250-50 mcg/dose inhaler Inhale 1 Puff as instructed two times a day. albuterol HFA (VENTOLIN HFA) 90 mcg/actuation inhaler Inhale 2 Puffs as instructed every 4 hours as needed for wheezing/shortness of breath. metoprolol succinate ER (TOPROL XL) 25 mg 24 hr tablet Take 1 tablet by mouth once daily. atorvastatin (LIPITOR) 40 mg tablet Take 1 tablet by mouth once daily. MULTIVITAMIN ORAL Take by mouth once daily. docusate sodium (COLACE) 100 mg capsule Take 1 capsule by mouth twice daily. polyethylene glycol 3350 (MIRALAX) 17 gram/dose powder 17g (1 scoop) with 8 oz daily as needed for constipation predniSONE (DELTASONE) 20 mg tablet Take 60 mg by mouth once daily. (Patient not taking: Reported on 04/27/2024) OTC PRODUCT Take 1 tablet by mouth once daily. PREVAGEN REGULAR STRENGTH (Patient not taking: Reported on 05/01/2024) No current facility-administered medications for this visit. FAMILY HISTORY Problem Relation Age of Onset Heart Mother age 66, CA, SLE other (lupus) Mother diagnosed age 49 Heart Father age 84, CHF other (G6PD) Sister G6PD Diabetes Brother 1/2 brother Hypertension Brother 1/2 brother Colon Cancer Brother rectal cancer? 1/2 brother Social History Tobacco Use Smoking status: Former Current packs/day: 0.00 Average packs/day: 0.5 packs/day for 9.0 years (4.5 ttl pk-yrs) Types: Cigarettes Start date: 11/01/1967 Quit date: 10/31/1976 Years since quittin.5 Smokeless tobacco: Never Vaping Use Vaping status: Never Used Substance Use Topics Alcohol use: Yes Alcohol/week: 7.0 standard drinks of alcohol Types: 7 Glasses of wine per week Drug use: Not Currently Comment: marijuana use, has used inhalants REVIEW OF SYSTEMS GENERAL: + weight loss with pneumonia, + malaise, no further fevers/chills HEENT: Negative for frequent or significant headaches- except with fever from pneumonia, No changes in hearing or vision. NECK: Negative for lumps, goiter, pain and significant neck swelling RESPIRATORY: Some cough, no hemoptysis, + wheezing improved, no further dyspnea or shortness of breath CARDIOVASCULAR: Negative for chest pain, leg swelling, orthopnea (HOB elevated), some palpitations with anxiety GI: No nausea, vomiting, or diarrhea/constipation. No hematochezia/melena. No heartburn or reflux symptoms. : No history of dysuria, frequency or incontinence MUSCULOSKELETAL: Negative for joint pain or swelling. SKIN: Negative for lesions, rash, and itching MOOD: Negative for depression, anxiety, or suicidal ideation. Ongoing anxiety EXAM: BP 110/68 (BP Site: Left Arm, BP Position: Sitting, BP Cuff Size: Large Adult) Pulse 72 Temp 36.8 C (98.3 F) (Left Tympanic) Resp 12 Wt 74.8 kg (165 lb) SpO2 99% BMI 22.38 kg/m PHYSICAL EXAM: Physical Exam Vitals reviewed. Constitutional: Appearance: Normal appearance. HENT: Head: Normocephalic. Cardiovascular: Rate and Rhythm: Normal rate and regular rhythm. Pulses: Normal pulses. Heart sounds: Normal heart sounds. Pulmonary: Effort: Pulmonary effort is normal. Breath sounds: Normal breath sounds. Comments: Moist crackles in Left lower 1/2 that clears with cough Abdominal: General: Bowel sounds are normal. Palpations: Abdomen is soft. Musculoskeletal: General: Normal range of motion. Skin: General: Skin is warm and dry. Neurological: Mental Status: He is alert. LABS: reviewed recent labs with pt. ASSESSMENT/PLAN: 1. Mixed hyperlipidemia - ICD9: 272.2, ICD10: E78.2 (primary diagnosis) - Controlled - Counseled on healthy diet and regular exercise - Continue atorvastatin 2. 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 COPD, mild (HCC) - ICD9: 496, ICD10: J44.9 Stable 4. Gastroesophageal reflux disease without esophagitis - ICD9: 530.81, ICD10: K21.9 Stable 5. Palpitations - ICD9: 785.1, ICD10: R00.2 Occurs with anxiety 6. Bacterial pneumonia - ICD9: 482.9, ICD10: J15.9 Improving - Finish antibiotics 7. Anxiety with depression - ICD9: 300.4, ICD10: F41.8 Ongoing - BUSPIRONE 15 MG TABLET Discussed treatment plan and patient voices understanding. Patient's questions answered appropriately. Medications and potential side effects were discussed and patient voices understanding. Return to the office as scheduled or as needed for worsening/no improvement. Leticia Harding APRN.JUSTICE documented in this encounter [facility] 04-28-2024 History of Present illness Narrative Radiology Service Progress Note PATIENT NAME: Gaston Lainez DATE OF SERVICE: April 28, 2024 TIME: 8:15 AM PATIENT IDENTITY VERIFICATION COMPLETED USING TWO (2) IDENTIFIERS: Name and Date of confirmed by patient verbally. FALL SCREENING: Has the patient had 2 falls in the last year or 1 fall with injury or currently using an Ambulatory Assistive Device (Walker, Cane, Wheelchair, Crutches, etc.)? No PATIENT GENDER DATA: Male PATIENT RELEVANT IMPLANT DATA REVIEWED: Not Applicable PATIENT PRESENTS WITH AN IMPLANTABLE OR ATTACHED WOMENS VOLLEYBALL COACH: No RADIOLOGY DEPARTMENT: General X-ray: Exam(s) Completed: Chest X-Ray PERIPHERAL IV DATA: Not applicable SIGNED BY: RT Mansi(Laurie) April 28, 2024 8:15 AM documented in this encounter [facility] 04-28-2024 Note HNO ID: [id number] Author: RUEL GAMING RT(R) Service: ? Author Type: Technologist Type: Progress Notes Filed: 04/28/2024 08:21 Note Text: Radiology Service Progress Note PATIENT NAME: Gaston Lainez DATE OF SERVICE: April 28, 2024 TIME: 8:15 AM PATIENT IDENTITY VERIFICATION COMPLETED USING TWO (2) IDENTIFIERS: Name and Date of confirmed by patient verbally. FALL SCREENING: Has the patient had 2 falls in the last year or 1 fall with injury or currently using an Ambulatory Assistive Device (Walker, Cane, Wheelchair, Crutches, etc.)? No PATIENT GENDER DATA: Male PATIENT RELEVANT IMPLANT DATA REVIEWED: Not Applicable PATIENT PRESENTS WITH AN IMPLANTABLE OR ATTACHED WOMENS VOLLEYBALL COACH: No RADIOLOGY DEPARTMENT: General X-ray: Exam(s) Completed: Chest X-Ray PERIPHERAL IV DATA: Not applicable SIGNED BY: RT Mansi(R) April 28, 2024 8:15 AM [facility] 04-28-2024 Telephone encounter Note Patient given results and verbalized understanding of instructions given. Raina Harrison MA [facility] 04-28-2024 Miscellaneous Notes Patient given results and verbalized understanding of instructions given. Raina Harrison MA Negative for COVID flu RSV documented in this encounter [facility] 04-28-2024 Telephone encounter Note Negative for COVID flu RSV [facility] Work Phone: 04-27-2024 Note HNO ID: [id number] Author: ARTURO LEMA APRN.PROMOTIONS REPRESENTATIVE Service: ? Author Type: Nurse Practitioner Type: Progress Notes Filed: 04/28/2024 09:43 Note Text: Subjective HPI Nontoxic-appearing male presents urgent care accompanied by significant other. Chief complaint cough chest congestion body aches fever. States was seen here 3 weeks ago with cough. Chest x-ray negative. Placed on prednisone. Cough did improve. Cough worsens again the last few days. Patient was outside earlier this morning working for about 3 hours. Became fatigued. Came inside. Has not ate a bunch today for lack of appetite. Has been drinking fluids. Last urinated around 430. Brother was sick with pneumonia. Denies any high fevers productive cough hemoptysis pleuritic pain chest pain nausea vomiting abdominal pain change in bowel or bladder habits. Past medical history prescription medications allergies reviewed. BP 113/73 Pulse 91 Temp 37.9 ?C (100.3 ?F) Resp 18 Wt 75.3 kg (166 lb 0.1 oz) SpO2 95% BMI 22.51 kg/m? .Patient presents with: Fatigue: Cough, chest congestion x 3 days, body aches, fever. PAST MEDICAL HISTORY 01/14/2021: Abnormal stress echocardiogram Comment: 01/21/[address] Barragan: right dominant. LMT min luminal, LAD mild diffuse, LCx mild luminal with large caliber nondominant vessel extending into a single large obtuse marginal branch, proximal vessel is mildly calcified +mild luminal irreg, RCA 40% Large-caliber dominant vessel: moderate calcification from the proximal to mid vessel, mild diffuse ectatic disease proximal.The ostium of the 10/24/2007: Anxiety state, unspecified No date: Benign paroxysmal positional vertigo Comment: one remote episode No date: Bunion 10/24/2007: Chronic obstructive asthma, unspecified No date: Depression Comment: likely bipolar disorder 10/24/2007: Depressive disorder, not elsewhere classified 10/24/2007: Generalized anxiety disorder 03/02/2016: History of marijuana use Comment: Quit 08/2015 No date: Hypermobility syndrome No date: Mild coronary artery disease 11/27/2008: Mixed hyperlipidemia R, 10/07 L: Nontraumatic rupture of tendons of biceps (long head) No date: OCD (obsessive compulsive disorder) 11/2001: Pneumonia, organism unspecified(486) Comment: bilateral: cleared 03/02/2016: Primary insomnia PAST SURGICAL HISTORY 09/21/2006: COLONOSCOPY FLX DX W/COLLJ SPEC WHEN PFRMD Comment: repeat due 201604/22/2020: COLONOSCOPY FLX DX W/COLLJ SPEC WHEN PFRMD Comment: Colonoscopy 04/19/2017: COLSC FLX W/RMVL OF TUMOR POLYP LESION SNARE TQ Comment: 2 adenomatous polyps - 07/23/2019: ESOPHAGOGASTRODUODENOSCOPY TRANSORAL DIAGNOSTIC Comment: EGD 03/29/2000: EXCISION OF BENIGN LESION GREATER THAN 1.25 CM Comment: tongue and lip lesions: fibroma; nose: sebaceous hyperplasia No date: PAST SURGICAL HISTORY OF Comment: repair flexor tendon left thumb 09/03/2019: PAST SURGICAL HISTORY OF; Left Comment: Dr. medina [facility]: left CTR and tenosynovectomy at wrist level 04/29/2021: PAST SURGICAL HISTORY OF; Left Comment: Left median nerve release at the elbow and forearm, Dontae Medina MD, [facility] 2008: ROTATOR CUFF REPAIR Comment: left 04/22/2016: ROTATOR CUFF REPAIR Comment: right No date: VASECTOMY UNI/BI SPX W/POSTOP SEMEN EXAMS ALLERGIES Patient has no known allergies. MEDICATIONS donepezil (ARICEPT) 5 mg tablet Take 1 tablet by mouth daily with breakfast. tamsulosin (FLOMAX) 0.4 mg Take 1 capsule by mouth daily at bedtime. Patient should start on April 02, 2024. Tadalafil (CIALIS) 10 mg tablet 1-2 tabs daily as needed OLANZapine (ZYPREXA) 2.5 mg tablet use 1 to 2 tablets at bedtime busPIRone (BUSPAR) 15 mg tablet TAKE 1 TABLET BY MOUTH TWICE A DAY fluticasone-salmeterol (WIXELA INHUB) 250-50 mcg/dose inhaler Inhale 1 Puff as instructed two times a day. albuterol HFA (VENTOLIN HFA) 90 mcg/actuation inhaler Inhale 2 Puffs as instructed every 4 hours as needed for wheezing/shortness of breath. metoprolol succinate ER (TOPROL XL) 25 mg 24 hr tablet Take 1 tablet by mouth once daily. OTC PRODUCT Take 1 tablet by mouth once daily. PREVAGEN REGULAR STRENGTH atorvastatin (LIPITOR) 40 mg tablet Take 1 tablet by mouth once daily. MULTIVITAMIN ORAL Take by mouth once daily. docusate sodium (COLACE) 100 mg capsule Take 1 capsule by mouth twice daily. polyethylene glycol 3350 (MIRALAX) 17 gram/dose powder 17g (1 scoop) with 8 oz daily as needed for constipation predniSONE (DELTASONE) 20 mg tablet Take 60 mg by mouth once daily. (Patient not taking: Reported on 04/27/2024) FAMILY HISTORY Problem Relation Age of Onset Heart Mother age 66, CA, SLE other (lupus) Mother diagnosed age 49 Heart Father age 84, CHF other (G6PD) Sister G6PD Diabetes Brother 1/2 brother Hypertension Brother 1/2 brother Colon Cancer Brother rectal cancer? 1/2 brother (more content not included)... [facility] 04-27-2024 History of Present illness Narrative Subjective HPI Nontoxic-appearing male presents urgent care accompanied by significant other. Chief complaint cough chest congestion body aches fever. States was seen here 3 weeks ago with cough. Chest x-ray negative. Placed on prednisone. Cough did improve. Cough worsens again the last few days. Patient was outside earlier this morning working for about 3 hours. Became fatigued. Came inside. Has not ate a bunch today for lack of appetite. Has been drinking fluids. Last urinated around 430. Brother was sick with pneumonia. Denies any high fevers productive cough hemoptysis pleuritic pain chest pain nausea vomiting abdominal pain change in bowel or bladder habits. Past medical history prescription medications allergies reviewed. BP 113/73 Pulse 91 Temp 37.9 C (100.3 F) Resp 18 Wt 75.3 kg (166 lb 0.1 oz) SpO2 95% BMI 22.51 kg/m .Patient presents with: Fatigue: Cough, chest congestion x 3 days, body aches, fever. PAST MEDICAL HISTORY 01/14/2021: Abnormal stress echocardiogram Comment: 01/21/[address] Barragan: right dominant. LMT min luminal, LAD mild diffuse, LCx mild luminal with large caliber nondominant vessel extending into a single large obtuse marginal branch, proximal vessel is mildly calcified +mild luminal irreg, RCA 40% Large-caliber dominant vessel: moderate calcification from the proximal to mid vessel, mild diffuse ectatic disease proximal.The ostium of the 10/24/2007: Anxiety state, unspecified No date: Benign paroxysmal positional vertigo Comment: one remote episode No date: Bunion 10/24/2007: Chronic obstructive asthma, unspecified No date: Depression Comment: likely bipolar disorder 10/24/2007: Depressive disorder, not elsewhere classified 10/24/2007: Generalized anxiety disorder 03/02/2016: History of marijuana use Comment: Quit 08/2015 No date: Hypermobility syndrome No date: Mild coronary artery disease 11/27/2008: Mixed hyperlipidemia R, 10/07 L: Nontraumatic rupture of tendons of biceps (long head) No date: OCD (obsessive compulsive disorder) 11/2001: Pneumonia, organism unspecified(486) Comment: bilateral: cleared 03/02/2016: Primary insomnia PAST SURGICAL HISTORY 09/21/2006: COLONOSCOPY FLX DX W/COLLJ SPEC WHEN PFRMD Comment: repeat due 201604/22/2020: COLONOSCOPY FLX DX W/COLLJ SPEC WHEN PFRMD Comment: Colonoscopy 04/19/2017: COLSC FLX W/RMVL OF TUMOR POLYP LESION SNARE TQ Comment: 2 adenomatous polyps - 07/23/2019: ESOPHAGOGASTRODUODENOSCOPY TRANSORAL DIAGNOSTIC Comment: EGD 03/29/2000: EXCISION OF BENIGN LESION GREATER THAN 1.25 CM Comment: tongue and lip lesions: fibroma; nose: sebaceous hyperplasia No date: PAST SURGICAL HISTORY OF Comment: repair flexor tendon left thumb 09/03/2019: PAST SURGICAL HISTORY OF; Left Comment: Dr. tiffany [facility]: left CTR and tenosynovectomy at wrist level 04/29/2021: PAST SURGICAL HISTORY OF; Left Comment: Left median nerve release at the elbow and forearm, Dontae Medina MD, [facility] 2008: ROTATOR CUFF REPAIR Comment: left 04/22/2016: ROTATOR CUFF REPAIR Comment: right No date: VASECTOMY UNI/BI SPX W/POSTOP SEMEN EXAMS ALLERGIES Patient has no known allergies. MEDICATIONS donepezil (ARICEPT) 5 mg tablet Take 1 tablet by mouth daily with breakfast. tamsulosin (FLOMAX) 0.4 mg Take 1 capsule by mouth daily at bedtime. Patient should start on April 02, 2024. Tadalafil (CIALIS) 10 mg tablet 1-2 tabs daily as needed OLANZapine (ZYPREXA) 2.5 mg tablet use 1 to 2 tablets at bedtime busPIRone (BUSPAR) 15 mg tablet TAKE 1 TABLET BY MOUTH TWICE A DAY fluticasone-salmeterol (WIXELA INHUB) 250-50 mcg/dose inhaler Inhale 1 Puff as instructed two times a day. albuterol HFA (VENTOLIN HFA) 90 mcg/actuation inhaler Inhale 2 Puffs as instructed every 4 hours as needed for wheezing/shortness of breath. metoprolol succinate ER (TOPROL XL) 25 mg 24 hr tablet Take 1 tablet by mouth once daily. OTC PRODUCT Take 1 tablet by mouth once daily. PREVAGEN REGULAR STRENGTH atorvastatin (LIPITOR) 40 mg tablet Take 1 tablet by mouth once daily. MULTIVITAMIN ORAL Take by mouth once daily. docusate sodium (COLACE) 100 mg capsule Take 1 capsule by mouth twice daily. polyethylene glycol 3350 (MIRALAX) 17 gram/dose powder 17g (1 scoop) with 8 oz daily as needed for constipation predniSONE (DELTASONE) 20 mg tablet Take 60 mg by mouth once daily. (Patient not taking: Reported on 04/27/2024) FAMILY HISTORY Problem Relation Age of Onset Heart Mother age 66, CA, SLE other (lupus) Mother diagnosed age 49 Heart Father age 84, CHF other (G6PD) Sister G6PD Diabetes Brother 1/2 brother Hypertension Brother 1/2 brother Colon Cancer Brother rectal cancer? 1/2 brother Social History Tobacco Use Smoking status: Former Current packs/day: 0.00 Average packs/day: 0.5 packs/day for 9.0 years (4.5 ttl pk-yrs) Types: Cigarettes Start date: 11/01/1967 Quit date: 10/31/1976 Years since quittin.5 Smokeless tobacco: Never Vaping Use Vaping status: Never Used Substance Use Topics Alcohol use: Yes Alcohol/week: 7.0 standard drinks of alcohol Types: 7 Glasses of wine per week Drug use: Not Currently Comment: marijuana use, has used inhalants Review of Systems Constitutional: Positive for chills and malaise/fatigue. Negative for fever. HENT: Positive for congestion. Negative for ear discharge, ear pain, sinus pain and sore throat. Eyes: Negative for blurred vision, pain, discharge and redness. Respiratory: Positive for cough. Negative for hemoptysis, sputum production, shortness of breath, wheezing and stridor. Cardiovascular: Negative for chest pain. Gastrointestinal: Negative for abdominal pain, diarrhea, nausea and vomiting. Musculoskeletal: Positive for myalgias. Skin: Negative for itching and rash. Neurological: Positive for headaches. Negative for dizziness. Objective Physical Exam Constitutional: General: He is not in acute distress. Appearance: He is not diaphoretic. HENT: Head: Normocephalic. Jaw: No trismus, tenderness, swelling or pain on movement. Mouth/Throat: Mouth: Mucous membranes are moist. Pharynx: Oropharynx is clear. Uvula midline. No pharyngeal swelling, oropharyngeal exudate, posterior oropharyngeal erythema or uvula swelling. Eyes: Conjunctiva/sclera: Conjunctivae normal. Pupils: Pupils are equal, round, and reactive to light. Cardiovascular: Rate and Rhythm: Normal rate and regular rhythm. Heart sounds: Normal heart sounds. Pulmonary: Effort: Pulmonary effort is normal. No tachypnea, accessory muscle usage or respiratory distress. Breath sounds: Normal breath sounds. No stridor. No wheezing, rhonchi or rales. Abdominal: General: There is no distension. Palpations: Abdomen is soft. Tenderness: There is no abdominal tenderness. There is no guarding or rebound. Musculoskeletal: Cervical back: Normal range of motion and neck supple. No edema, erythema, rigidity or tenderness. No pain with movement. Normal range of motion. Lymphadenopathy: Cervical: No cervical adenopathy. Skin: General: Skin is warm and dry. Neurological: Mental Status: He is alert and oriented to person, place, and time. ASSESSMENT/PLAN: 1. Acute cough - ICD9: 786.2, ICD10: R05.1 (primary diagnosis) - XR CHEST 2V FRONTAL/LAT 2. URI, acute - ICD9: 465.9, ICD10: J06.9 - COVID & INFLUENZA A/B & RSV PCR, ROUTINE 3. Community acquired pneumonia of left lower lobe of lung - ICD9: 486, ICD10: J18.9 IMPRESSION: Left lower lobe infiltrate. Recommend follow-up examination after completion of treatment until resolution. Patient nontoxic-appearing. Hemodynamically stable. Curb 65 score 1. Diagnosed with left lower lobe infiltrate. Will double cover due to history of COPD and age and other comorbidities. Placed on doxycycline and Augmentin. Red flags for prompt ER evaluation discussed. Follow-up with PCP on Tuesday for reevaluation. Patient was educated on supportive therapies. Patient will follow up with primary care provider as needed. Patient was instructed to immediately proceed to emergency room for any new, worsening, or symptoms lasting longer than anticipated. The patient's clinical presentation is otherwise unremarkable at this time. Based on exam and clinical finding, the patient is stable for discharge. Plan of care was discussed with patient. Patient verbalizes understanding and agrees to plan of care. This note was generated using Min[employer]izer software. It may contain errors in wording, punctuation, or spelling. Arturo Lema APRN.JUSTICE documented in this encounter [facility] 04-14-2024 History of Present illness Narrative Radiology Service Progress Note PATIENT NAME: Gaston Lainez DATE OF SERVICE: April 14, 2024 TIME: 11:54 AM PATIENT IDENTITY VERIFICATION COMPLETED USING TWO (2) IDENTIFIERS: Name and Date of confirmed by patient verbally. FALL SCREENING: Has the patient had 2 falls in the last year or 1 fall with injury or currently using an Ambulatory Assistive Device (Walker, Cane, Wheelchair, Crutches, etc.)? No PATIENT GENDER DATA: Male PATIENT RELEVANT IMPLANT DATA REVIEWED: Not Applicable PATIENT PRESENTS WITH AN IMPLANTABLE OR ATTACHED WOMENS VOLLEYBALL COACH: No RADIOLOGY DEPARTMENT: General X-ray: Exam(s) Completed: Chest X-Ray PERIPHERAL IV DATA: Not applicable SIGNED BY: RT Bryce(R) April 14, 2024 11:54 AM documented in this encounter [facility] 04-14-2024 Note HNO ID: [id number] Author: CHANDLER AGGARWAL RT(Laurie) Service: Radiology Author Type: Technologist Type: Progress Notes Filed: 04/14/2024 11:59 Note Text: Radiology Service Progress Note PATIENT NAME: Gaston Lainez DATE OF SERVICE: April 14, 2024 TIME: 11:54 AM PATIENT IDENTITY VERIFICATION COMPLETED USING TWO (2) IDENTIFIERS: Name and Date of confirmed by patient verbally. FALL SCREENING: Has the patient had 2 falls in the last year or 1 fall with injury or currently using an Ambulatory Assistive Device (Walker, Cane, Wheelchair, Crutches, etc.)? No PATIENT GENDER DATA: Male PATIENT RELEVANT IMPLANT DATA REVIEWED: Not Applicable PATIENT PRESENTS WITH AN IMPLANTABLE OR ATTACHED WOMENS VOLLEYBALL COACH: No RADIOLOGY DEPARTMENT: General X-ray: Exam(s) Completed: Chest X-Ray PERIPHERAL IV DATA: Not applicable SIGNED BY: HANS Wu) April 14, 2024 11:54 AM [facility] 04-14-2024 Note HNO ID: [id number] Author: WILLI CHURCH APRN.PROMOTIONS REPRESENTATIVE Service: ? Author Type: Nurse Practitioner Type: Progress Notes Filed: 04/14/2024 12:25 Note Text: CC: Patient presents with: Cough: Chest congestion x3 days HPI: Gaston Lainez is a 73 year old male who presents to the office with complaint of chest congestion and cough, nonproductive for a few days. Symptoms are worsening Associated symptoms includes wheezing. Denies nausea, vomiting , and diarrhea. Treatments tried include nothing so far. with no relief of symptoms. Sick contacts: unknown. History of asthma, frequent episodes of bronchitis, chronic bronchitis, bronchiectasis or COPD: Yes asthma Smoker: No Seasonal/environmental allergies: No The ROS is otherwise negative. The patient's pmh, medications, allergies, and past visits are reviewed. PHYSICAL EXAM: BP 106/66 Pulse 69 Temp 37.5 ?C (99.5 ?F) Resp 18 Wt 76.2 kg (167 lb 15.9 oz) SpO2 97% BMI 22.78 kg/m? General appearance: alert, cooperative, pleasant, in no acute distress Head: Normocephalic Eyes: EOM's intact, conjunctiva pink and moist, no icterus, sclera white, non-injected Ears: Right ear: External ear/canal- Normal, TM - clear with good landmarks. Left ear: External ear/canal- Normal, TM - clear with good landmarks Oropharynx:moist without lesions, No erythema, exudates or tonsillar hypertrophy. Heart: Negative. RRR without obvious murmur, gallop, or rubs. No ectopy. Lungs: wheezing diffusely PAST MEDICAL HISTORY 01/14/2021: Abnormal stress echocardiogram Comment: 01/21/[address] Barragan: right dominant. LMT min luminal, LAD mild diffuse, LCx mild luminal with large caliber nondominant vessel extending into a single large obtuse marginal branch, proximal vessel is mildly calcified +mild luminal irreg, RCA 40% Large-caliber dominant vessel: moderate calcification from the proximal to mid vessel, mild diffuse ectatic disease proximal.The ostium of the 10/24/2007: Anxiety state, unspecified No date: Benign paroxysmal positional vertigo Comment: one remote episode No date: Bunion 10/24/2007: Chronic obstructive asthma, unspecified No date: Depression Comment: likely bipolar disorder 10/24/2007: Depressive disorder, not elsewhere classified 10/24/2007: Generalized anxiety disorder 03/02/2016: History of marijuana use Comment: Quit 08/2015 No date: Hypermobility syndrome No date: Mild coronary artery disease 11/27/2008: Mixed hyperlipidemia 12 R, 10/07 L: Nontraumatic rupture of tendons of biceps (long head) No date: OCD (obsessive compulsive disorder) 11/2001: Pneumonia, organism unspecified(486) Comment: bilateral: cleared 03/02/2016: Primary insomnia PAST SURGICAL HISTORY 09/21/2006: COLONOSCOPY FLX DX W/COLLJ SPEC WHEN PFRMD Comment: repeat due 201604/22/2020: COLONOSCOPY FLX DX W/COLLJ SPEC WHEN PFRMD Comment: Colonoscopy 04/19/2017: COLSC FLX W/RMVL OF TUMOR POLYP LESION SNARE TQ Comment: 2 adenomatous polyps - 07/23/2019: ESOPHAGOGASTRODUODENOSCOPY TRANSORAL DIAGNOSTIC Comment: EGD 03/29/2000: EXCISION OF BENIGN LESION GREATER THAN 1.25 CM Comment: tongue and lip lesions: fibroma; nose: sebaceous hyperplasia No date: PAST SURGICAL HISTORY OF Comment: repair flexor tendon left thumb 09/03/2019: PAST SURGICAL HISTORY OF; Left Comment: Dr. medina [facility]: left CTR and tenosynovectomy at wrist level 04/29/2021: PAST SURGICAL HISTORY OF; Left Comment: Left median nerve release at the elbow and forearm, Dontae Medina MD, [facility] 2009: ROTATOR CUFF REPAIR Comment: left 04/22/2016: ROTATOR CUFF REPAIR Comment: right No date: VASECTOMY UNI/BI SPX W/POSTOP SEMEN EXAMS ALLERGIES Patient has no known allergies. MEDICATIONS donepezil (ARICEPT) 5 mg tablet Take 1 tablet by mouth daily with breakfast. tamsulosin (FLOMAX) 0.4 mg Take 1 capsule by mouth daily at bedtime. Patient should start on April 02, 2024. Tadalafil (CIALIS) 10 mg tablet 1-2 tabs daily as needed predniSONE (DELTASONE) 20 mg tablet Take 60 mg by mouth once daily. (Patient not taking: Reported on 02/07/2024) OLANZapine (ZYPREXA) 2.5 mg tablet use 1 to 2 tablets at bedtime busPIRone (BUSPAR) 15 mg tablet TAKE 1 TABLET BY MOUTH TWICE A DAY fluticasone-salmeterol (WIXELA INHUB) 250-50 mcg/dose inhaler Inhale 1 Puff as instructed two times a day. albuterol HFA (VENTOLIN HFA) 90 mcg/actuation inhaler Inhale 2 Puffs as instructed every 4 hours as needed for wheezing/shortness of breath. metoprolol succinate ER (TOPROL XL) 25 mg 24 hr tablet Take 1 tablet by mouth once daily. OTC PRODUCT Take 1 tablet by mouth once daily. PREVAGEN REGULAR STRENGTH (Patient not taking: Reported on 02/07/2024) atorvastatin (LIPITOR) 40 mg tablet Take 1 tablet by mouth once daily. MULTIVITAMIN ORAL Take by mouth once daily. docusate sodium (COLACE) 100 mg capsule Take 1 capsule by mouth twice daily. polyethylene (more content not included)... [facility] 04-14-2024 History of Present illness Narrative CC: Patient presents with: Cough: Chest congestion x3 days HPI: Gaston Lainez is a 73 year old male who presents to the office with complaint of chest congestion and cough, nonproductive for a few days. Symptoms are worsening Associated symptoms includes wheezing. Denies nausea, vomiting , and diarrhea. Treatments tried include nothing so far. with no relief of symptoms. Sick contacts: unknown. History of asthma, frequent episodes of bronchitis, chronic bronchitis, bronchiectasis or COPD: Yes asthma Smoker: No Seasonal/environmental allergies: No The ROS is otherwise negative. The patient's pmh, medications, allergies, and past visits are reviewed. PHYSICAL EXAM: BP 106/66 Pulse 69 Temp 37.5 C (99.5 F) Resp 18 Wt 76.2 kg (167 lb 15.9 oz) SpO2 97% BMI 22.78 kg/m General appearance: alert, cooperative, pleasant, in no acute distress Head: Normocephalic Eyes: EOM's intact, conjunctiva pink and moist, no icterus, sclera white, non-injected Ears: Right ear: External ear/canal- Normal, TM - clear with good landmarks. Left ear: External ear/canal- Normal, TM - clear with good landmarks Oropharynx:moist without lesions, No erythema, exudates or tonsillar hypertrophy. Heart: Negative. RRR without obvious murmur, gallop, or rubs. No ectopy. Lungs: wheezing diffusely PAST MEDICAL HISTORY 01/14/2021: Abnormal stress echocardiogram Comment: 01/21/[address] Barragan: right dominant. LMT min luminal, LAD mild diffuse, LCx mild luminal with large caliber nondominant vessel extending into a single large obtuse marginal branch, proximal vessel is mildly calcified +mild luminal irreg, RCA 40% Large-caliber dominant vessel: moderate calcification from the proximal to mid vessel, mild diffuse ectatic disease proximal.The ostium of the 10/24/2007: Anxiety state, unspecified No date: Benign paroxysmal positional vertigo Comment: one remote episode No date: Bunion 10/24/2007: Chronic obstructive asthma, unspecified No date: Depression Comment: likely bipolar disorder 10/24/2007: Depressive disorder, not elsewhere classified 10/24/2007: Generalized anxiety disorder 03/02/2016: History of marijuana use Comment: Quit 08/2015 No date: Hypermobility syndrome No date: Mild coronary artery disease 11/27/2008: Mixed hyperlipidemia R, 10/07 L: Nontraumatic rupture of tendons of biceps (long head) No date: OCD (obsessive compulsive disorder) 11/2001: Pneumonia, organism unspecified(486) Comment: bilateral: cleared 03/02/2016: Primary insomnia PAST SURGICAL HISTORY 09/21/2006: COLONOSCOPY FLX DX W/COLLJ SPEC WHEN PFRMD Comment: repeat due 201604/22/2020: COLONOSCOPY FLX DX W/COLLJ SPEC WHEN PFRMD Comment: Colonoscopy 04/19/2017: COLSC FLX W/RMVL OF TUMOR POLYP LESION SNARE TQ Comment: 2 adenomatous polyps - 07/23/2019: ESOPHAGOGASTRODUODENOSCOPY TRANSORAL DIAGNOSTIC Comment: EGD 03/29/2000: EXCISION OF BENIGN LESION GREATER THAN 1.25 CM Comment: tongue and lip lesions: fibroma; nose: sebaceous hyperplasia No date: PAST SURGICAL HISTORY OF Comment: repair flexor tendon left thumb 09/03/2019: PAST SURGICAL HISTORY OF; Left Comment: Dr. medina [facility]: left CTR and tenosynovectomy at wrist level 04/29/2021: PAST SURGICAL HISTORY OF; Left Comment: Left median nerve release at the elbow and forearm, Dontae Medina MD, [facility] 2009: ROTATOR CUFF REPAIR Comment: left 04/22/2016: ROTATOR CUFF REPAIR Comment: right No date: VASECTOMY UNI/BI SPX W/POSTOP SEMEN EXAMS ALLERGIES Patient has no known allergies. MEDICATIONS donepezil (ARICEPT) 5 mg tablet Take 1 tablet by mouth daily with breakfast. tamsulosin (FLOMAX) 0.4 mg Take 1 capsule by mouth daily at bedtime. Patient should start on April 02, 2024. Tadalafil (CIALIS) 10 mg tablet 1-2 tabs daily as needed predniSONE (DELTASONE) 20 mg tablet Take 60 mg by mouth once daily. (Patient not taking: Reported on 02/07/2024) OLANZapine (ZYPREXA) 2.5 mg tablet use 1 to 2 tablets at bedtime busPIRone (BUSPAR) 15 mg tablet TAKE 1 TABLET BY MOUTH TWICE A DAY fluticasone-salmeterol (WIXELA INHUB) 250-50 mcg/dose inhaler Inhale 1 Puff as instructed two times a day. albuterol HFA (VENTOLIN HFA) 90 mcg/actuation inhaler Inhale 2 Puffs as instructed every 4 hours as needed for wheezing/shortness of breath. metoprolol succinate ER (TOPROL XL) 25 mg 24 hr tablet Take 1 tablet by mouth once daily. OTC PRODUCT Take 1 tablet by mouth once daily. PREVAGEN REGULAR STRENGTH (Patient not taking: Reported on 02/07/2024) atorvastatin (LIPITOR) 40 mg tablet Take 1 tablet by mouth once daily. MULTIVITAMIN ORAL Take by mouth once daily. docusate sodium (COLACE) 100 mg capsule Take 1 capsule by mouth twice daily. polyethylene glycol 3350 (MIRALAX) 17 gram/dose powder 17g (1 scoop) with 8 oz daily as needed for constipation FAMILY HISTORY Problem Relation Age of Onset Heart Mother age 66, CA, SLE other (lupus) Mother diagnosed age 49 Heart Father age 84, CHF other (G6PD) Sister G6PD Diabetes Brother 1/2 brother Hypertension Brother 1/2 brother Colon Cancer Brother rectal cancer? 1/2 brother Social History Tobacco Use Smoking status: Former Current packs/day: 0.00 Average packs/day: 0.5 packs/day for 9.0 years (4.5 ttl pk-yrs) Types: Cigarettes Start date: 11/01/1967 Quit date: 10/31/1976 Years since quittin.4 Smokeless tobacco: Never Vaping Use Vaping status: Never Used Substance Use Topics Alcohol use: Yes Alcohol/week: 7.0 standard drinks of alcohol Types: 7 Glasses of wine per week Drug use: Not Currently Comment: marijuana use, has used inhalants ASSESSMENT/PLAN: 1. Acute cough - ICD9: 786.2, ICD10: R05.1 - XR CHEST 2V FRONTAL/LAT - neg - METHYLPREDNISOLONE 4 MG TABLETS IN A DOSE PACK Due to asthma and wheezing. Educated that it is just viral at this time. Patient should use [id number] medication for symptom management. If symptoms are worsening patient needs to follow-up with primary care. Patient was okay with this care plan Willi Church APRN.CNP Prescription instructions reviewed with patient as applicable. Potential red flag symptoms discussed with the patient. Reviewed appropriate action plan to take if red flag symptoms occur. Patient agreeable to treatment plan. Willi Church APRN.JUSTICE documented in this encounter [facility] 04-09-2024 Telephone encounter Note Patients , Marilynn, contacted the office with a patient update. States metoprolol was changed to take 12.5 mg (half a pill) last week and she reports the heart rate is better. It has been running in the 60's and 70's. If you need to speak with patient please contact them back at [phone]. [facility] 04-09-2024 Miscellaneous Notes Patients , Marilynn, contacted the office with a patient update. States metoprolol was changed to take 12.5 mg (half a pill) last week and she reports the heart rate is better. It has been running in the 60's and 70's. If you need to speak with patient please contact them back at [phone]. documented in this encounter [facility] 03-27-2024 Telephone encounter Note Marilynn notified of PROMOTIONS REPRESENTATIVE message. Verbalizes understanding. Katerina Dalton LPN [facility] 03-27-2024 Miscellaneous Notes Marilynn notified of PROMOTIONS REPRESENTATIVE message. Verbalizes understanding. Katerina Dalton LPN Images from the original note were not included. Elizabeth Knox APRN.PROMOTIONS REPRESENTATIVE You; [facility] Cardiology Pool; Mouna Parish MD16 minutes ago (10:50 AM) Reduce metoprolol to 12.5 mg (cut in half) and take at bedtime. Continue to monitor HR at home and symptoms. Update us in 1 week. May consider monitor or discontinuing metoprolol completely. Thank you, Elizabeth Knox APRN.CN Patient's Marilynn called stating that the patient's HR has been running in the 40s consistently and patient has been very fatigued. Patient was started on donepezil in January and states that they were warned that this med with his Metoprolol could cause his heart to run to slow. is asking if Metoprolol needs decreased or if the patient needs a medication change. Currently taking Metoprolol 24 Daily. Marilynn instructed to got to go to the ED if patient starts having increased symptoms or if HR continues to decrease. Reviewed symptoms to monitor for with the patient's . Patient has dementia so Marilynn requesting to be called with instructions. THEA 05/23/23, next appt 05/21/24 Please adviseJen RN documented in this encounter [facility] 03-27-2024 Telephone encounter Note Images from the original note were not included. Elizabeth Knox APRN.PROMOTIONS REPRESENTATIVE You; [facility] Cardiology Pool; Mouna Parish MD16 minutes ago (10:50 AM) Reduce metoprolol to 12.5 mg (cut in half) and take at bedtime. Continue to monitor HR at home and symptoms. Update us in 1 week. May consider monitor or discontinuing metoprolol completely. Thank you, Elizabeth Knox APRN.CN [facility] 03-27-2024 Telephone encounter Note Patient's Marilynn called stating that the patient's HR has been running in the 40s consistently and patient has been very fatigued. Patient was started on donepezil in January and states that they were warned that this med with his Metoprolol could cause his heart to run to slow. is asking if Metoprolol needs decreased or if the patient needs a medication change. Currently taking Metoprolol 24 Daily. Marilynn instructed to got to go to the ED if patient starts having increased symptoms or if HR continues to decrease. Reviewed symptoms to monitor for with the patient's . Patient has dementia so Marilynn requesting to be called with instructions. THEA 05/23/23, next appt 05/21/24 Please adviseJen, RN [facility] 03-14-2024 History of Present illness Narrative Program_ID:[id number] Access Code: [email or web address] URL: [email or web address] Date: 03-14-2024 Prepared By: Velasquez Richardson Program Notes Exercises - Hooklying Single Knee to Chest Stretch - 2 x daily - 5-7 x weekly - 3 sets - reps - Supine Double Knee to Chest - 2 x daily - 5-7 x weekly - 3 sets - reps - Seated Repeated Flexion - 2 x daily - 5-7 x weekly - 2 sets - 10-15 reps - Seated Lumbar Flexion Stretch - 2 x daily - 5-7 x weekly - 3 sets - reps - Standing Lower Cervical and Upper Thoracic Stretch - 2 x daily - 5-7 x weekly - 2-3 sets - reps - Seated Hamstring Stretch - 2 x daily - 5-7 x weekly - 2-3 sets - reps - Scapular Retraction with Resistance - 2 x daily - 5-7 x weekly - 2 sets - 10 reps Episode Visit Count: 5 Therapist That Will Accept/Oversee The Plan Of Care: Velasquez Richardson PT Start of Care Date: 02/14/24 Onset Date: 12/20/23 Plan of Care Certification Date: 02/14/24 Next Certification Due Date: 03/20/24 Patient Identified by Name and Date of : Yes REHABILITATION AND SPORTS THERAPY PHYSICAL THERAPY DISCONTINUANCE OF CARE PLAN OF CARE UPDATE: Assessment: Gaston Lainez is discontinued from Physical Therapy services due to goal achievement.. Patient was seen for 5 visits from Start of Care Date: 02/14/24 to 03/14/2024 and treatment included: Therapeutic exercise and Manual therapy Updated 03/14/24. Goals for Episode of Care: created on 02/14/24 through 03/27/24 Patient reported outcome of self-efficacy will increase T-score by a minimum 5 points. (MET) [place] in home exercise program. (MET) Patient will decrease pain rating by 2 points to meet minimal clinical important difference for numeric pain rating scale. (MET) Restore pain-free thoracic and lumbar ROM to WNL to allow for improved ADL/IADLs (MET) Maintain proper spine posture throughout session during sitting / standing / walking to demonstrate increased awareness and decreased overall pain. (MET) Improve B Hamstring flexibility for improved bending. (MET) Patient will report complete return to prior level of function without limitations in 6 weeks or less. (MET) Patient Goals: Return to PLOF and exercise, alleviate pain. (MET) SUBJECTIVE: Patient reports he feels like if he stays with the exercises the back is pretty good. Pain: Pain Pain Level: 0 Pain Location: Thoracic Spine Post Treatment Pain Post Treatment Pain Level: 0 Post Treatment Pain Location: Thoracic Spine PROMIS Scales 03/14/2024 02/14/2024 05/04/2023 Higher is Better Phys Func - Score 54 (within normal limits) 45 (within normal limits) 45 (within normal limits) Phys Func - Percentile 66 31 31 Self-Eff Symptom - Score 48 (Average) 39 (Low) Self-Eff Symptom - Percentile 42 14 T-scores: mean of general population = 50. 5 points is clinically meaningfully difference Percentiles provide an indication of how the patient's score ranks in relation to the general population. Higher percentile rankings indicate better function/quality of life. 50th percentile is the average of the general population and indicates half of respondents had a worse score. OBJECTIVE MEASURES WITH LEVEL OF FUNCTION: Spine Observations R Lumbar Spine Palpation Tenderness: No tenderness noted L Lumbar Spine Palpation Tenderness: No tenderness noted R Thoracic Spine Palpation Tenderness: No tenderness noted L Thoracic Spine Palpation Tenderness: No tenderness noted Lumbar Spine AROM Lumbar Flexion: Normal (Can touch toes now with legs straight.) Lumbar Extension: Normal Lumbar R Side-Bend: Normal Lumbar L Side-Bend: Normal Lumbar R Rotation: Normal Lumbar L Rotation: Normal Lumbar Spine AROM Comments: Both Lumbar & Thoracic Spine Movement is slow, however WNL. Thoracic Spine AROM Thoracic Flexion: Normal Thoracic Extension: Normal Thoracic Sidebend Right: Normal Thoracic Sidebend Left: Normal Thoracic Rotation Right: Normal Thoracic Rotation Left: Normal LE Strength R LE Strength: Grossly 5/5 L LE Strength: Grossly 5/5 Special Tests - Hip and Spine SLR Test: Left Negative, Right Negative TREATMENT: Therapeutic Exercise: 1: Re-assessment per above, discussion on patient's progress, discussed goals. 2: Reprinted HEP & thoroughly went through and explained/demonstrated each exercise for complete understanding. Patient states comprehension of HEP. Advised and educated on the importance of continued completion and adherance to HEP for progression. Skilled Intervention: Patient was educated in proper exercise technique and purpose for exercises. Reviewed and educated patient on additions/changes for home exercise program as above (*). Skilled judgment was used in selection of appropriate interventions. Provided written instruction for home exercise program to facilitate proper performance and compliance. Correct performance of therapeutic exercises was facilitated with verbal, visual, and tactile cuing. Billing Therapeutic Exercise Treatment Minutes: 17 Skilled Treatment Time Minutes (timed and untimed codes): 17 Total Session Time (minutes): 17 Session Start Time : 755 Session Stop Time : 812 Velasquez Richardson PT documented in this encounter [facility] 03-14-2024 Note HNO ID: [id number] Author: VELASQUEZ RICHARDSON PT Service: ? Author Type: Physical Therapist Type: Progress Notes Filed: 03/14/2024 08:19 Note Text: Episode Visit Count: 5 Therapist That Will Accept/Oversee The Plan Of Care: Velasquez Richardson PT Start of Care Date: 02/14/24 Onset Date: 12/20/23 Plan of Care Certification Date: 02/14/24 Next Certification Due Date: 03/20/24 Patient Identified by Name and Date of : Yes REHABILITATION AND SPORTS THERAPY PHYSICAL THERAPY DISCONTINUANCE OF CARE PLAN OF CARE UPDATE: Assessment: Gaston Lainez is discontinued from Physical Therapy services due to goal achievement.. Patient was seen for 5 visits from Start of Care Date: 02/14/24 to 03/14/2024 and treatment included: Therapeutic exercise and Manual therapy Updated 03/14/24. Goals for Episode of Care: created on 02/14/24 through 03/27/24 Patient reported outcome of self-efficacy will increase T-score by a minimum 5 points. (MET) [place] in home exercise program. (MET) Patient will decrease pain rating by 2 points to meet minimal clinical important difference for numeric pain rating scale. (MET) Restore pain-free thoracic and lumbar ROM to WNL to allow for improved ADL/IADLs (MET) Maintain proper spine posture throughout session during sitting / standing / walking to demonstrate increased awareness and decreased overall pain. (MET) Improve B Hamstring flexibility for improved bending. (MET) Patient will report complete return to prior level of function without limitations in 6 weeks or less. (MET) Patient Goals: Return to PLOF and exercise, alleviate pain. (MET) SUBJECTIVE: Patient reports he feels like if he stays with the exercises the back is pretty good. Pain: Pain Pain Level: 0 Pain Location: Thoracic Spine Post Treatment Pain Post Treatment Pain Level: 0 Post Treatment Pain Location: Thoracic Spine PROMIS Scales 03/14/2024 02/14/2024 05/04/2023 Higher is Better Phys Func - Score 54 (within normal limits) 45 (within normal limits) 45 (within normal limits) Phys Func - Percentile 66 31 31 Self-Eff Symptom - Score 48 (Average) 39 (Low) Self-Eff Symptom - Percentile 42 14 T-scores: mean of general population = 50. 5 points is clinically meaningfully difference Percentiles provide an indication of how the patient's score ranks in relation to the general population. Higher percentile rankings indicate better function/quality of life. 50th percentile is the average of the general population and indicates half of respondents had a worse score. OBJECTIVE MEASURES WITH LEVEL OF FUNCTION: Spine Observations R Lumbar Spine Palpation Tenderness: No tenderness noted L Lumbar Spine Palpation Tenderness: No tenderness noted R Thoracic Spine Palpation Tenderness: No tenderness noted L Thoracic Spine Palpation Tenderness: No tenderness noted Lumbar Spine AROM Lumbar Flexion: Normal (Can touch toes now with legs straight.) Lumbar Extension: Normal Lumbar R Side-Bend: Normal Lumbar L Side-Bend: Normal Lumbar R Rotation: Normal Lumbar L Rotation: Normal Lumbar Spine AROM Comments: Both Lumbar AND Thoracic Spine Movement is slow, however WNL. Thoracic Spine AROM Thoracic Flexion: Normal Thoracic Extension: Normal Thoracic Sidebend Right: Normal Thoracic Sidebend Left: Normal Thoracic Rotation Right: Normal Thoracic Rotation Left: Normal LE Strength R LE Strength: Grossly 5/5 L LE Strength: Grossly 5/5 Special Tests - Hip and Spine SLR Test: Left Negative, Right Negative TREATMENT: Therapeutic Exercise: 1: Re-assessment per above, discussion on patient's progress, discussed goals. 2: Reprinted HEP AND thoroughly went through and explained/demonstrated each exercise for complete understanding. Patient states comprehension of HEP. Advised and educated on the importance of continued completion and adherance to HEP for progression. Skilled Intervention: Patient was educated in proper exercise technique and purpose for exercises. Reviewed and educated patient on additions/changes for home exercise program as above (*). Skilled judgment was used in selection of appropriate interventions. Provided written instruction for home exercise program to facilitate proper performance and compliance. Correct performance of therapeutic exercises was facilitated with verbal, visual, and tactile cuing. Billing Therapeutic Exercise Treatment Minutes: 17 Skilled Treatment Time Minutes (timed and untimed codes): 17 Total Session Time (minutes): Session Start Time : 755 Session Stop Time : 812 Velasquez Richardson PT [facility] 03-06-2024 Note HNO ID: [id number] Author: VELASQUEZ RICHARDSON PT Service: ? Author Type: Physical Therapist Type: Progress Notes Filed: 03/06/2024 13:18 Note Text: Episode Visit Count: 4 Therapist That Will Accept/Oversee The Plan Of Care: Velasquez Richardson PT Start of Care Date: 02/14/24 Onset Date: 12/20/23 Plan of Care Certification Date: 02/14/24 Next Certification Due Date: 03/20/24 Patient Identified by Name and Date of : Yes REHABILITATION AND SPORTS THERAPY PHYSICAL THERAPY TREATMENT NOTE ASSESSMENT: Gaston Lainez tolerated the session with fatigue and expected muscle soreness. He demonstrated improvements in ability to perform exercises with increased resistance with decrease in pain. The patient will continue to benefit from ongoing skilled physical therapy to progress toward set goals. PLAN FOR NEXT VISIT: PN SUBJECTIVE: Pt reports that his back is not bad, has a little bit of pain. Pain: Pain Pain Level: 4 Pain Location: Thoracic Spine Post Treatment Pain Post Treatment Pain Level: 0 Post Treatment Pain Location: Thoracic Spine OBJECTIVE MEASURES WITH LEVEL OF FUNCTION: Improved technique with all exercises with decreased cueing given. TREATMENT: Therapeutic Exercise: 1: Seated thoracic rotation with arms extended and fingers laced 2x10 each direction 2: Seated Lower Cervical/Upper Thoracic Paraspinal Stretch: 3x30. 3: Seated thoracic extension over back of chair 2x10 4: Seated horizontal abd/add AROM 3x15 5: Seated TA activation 2x10 6: Scapular retractions with purple theraband 3x10 (purple TB given for HEP) 7: ER iso holds with OTB 3x30 seconds Skilled Intervention: Patient was educated in proper exercise technique and purpose for exercises. Skilled judgment was used in selection of appropriate interventions. Correct performance of therapeutic exercises was facilitated with verbal and visual cuing. Billing Therapeutic Exercise Treatment Minutes: 38 Skilled Treatment Time Minutes (timed and untimed codes): 38 Total Session Time (minutes): 38 Session Start Time : 832 Session Stop Time : 910 LAUREN Lozano PT, DPT. [facility] 03-06-2024 History of Present illness Narrative Episode Visit Count: 4 Therapist That Will Accept/Oversee The Plan Of Care: Velasquez Richardson PT Start of Care Date: 02/14/24 Onset Date: 12/20/23 Plan of Care Certification Date: 02/14/24 Next Certification Due Date: 03/20/24 Patient Identified by Name and Date of : Yes REHABILITATION AND SPORTS THERAPY PHYSICAL THERAPY TREATMENT NOTE ASSESSMENT: Gaston Lainez tolerated the session with fatigue and expected muscle soreness. He demonstrated improvements in ability to perform exercises with increased resistance with decrease in pain. The patient will continue to benefit from ongoing skilled physical therapy to progress toward set goals. PLAN FOR NEXT VISIT: PN SUBJECTIVE: Pt reports that his back is not bad, has a little bit of pain. Pain: Pain Pain Level: 4 Pain Location: Thoracic Spine Post Treatment Pain Post Treatment Pain Level: 0 Post Treatment Pain Location: Thoracic Spine OBJECTIVE MEASURES WITH LEVEL OF FUNCTION: Improved technique with all exercises with decreased cueing given. TREATMENT: Therapeutic Exercise: 1: Seated thoracic rotation with arms extended and fingers laced 2x10 each direction 2: Seated Lower Cervical/Upper Thoracic Paraspinal Stretch: 3x30. 3: Seated thoracic extension over back of chair 2x10 4: Seated horizontal abd/add AROM 3x15 5: Seated TA activation 2x10 6: Scapular retractions with purple theraband 3x10 (purple TB given for HEP) 7: ER iso holds with OTB 3x30 seconds Skilled Intervention: Patient was educated in proper exercise technique and purpose for exercises. Skilled judgment was used in selection of appropriate interventions. Correct performance of therapeutic exercises was facilitated with verbal and visual cuing. Billing Therapeutic Exercise Treatment Minutes: 38 Skilled Treatment Time Minutes (timed and untimed codes): 38 Total Session Time (minutes): 38 Session Start Time : 832 Session Stop Time : 910 LAUREN Lozano PT, DPT. documented in this encounter [facility] 02-28-2024 History of Present illness Narrative Program_ID:[id number] Access Code: [email or web address] URL: [email or web address] Date: 02-28-2024 Prepared By: Velasquez Richardson Program Notes Exercises - Hooklying Single Knee to Chest Stretch - 2 x daily - 5-7 x weekly - 3 sets - reps - Supine Double Knee to Chest - 2 x daily - 5-7 x weekly - 3 sets - reps - Seated Repeated Flexion - 2 x daily - 5-7 x weekly - 2 sets - 10-15 reps - Seated Lumbar Flexion Stretch - 2 x daily - 5-7 x weekly - 3 sets - reps - Standing Lower Cervical and Upper Thoracic Stretch - 2 x daily - 5-7 x weekly - 2-3 sets - reps - Seated Scapular Retraction - 2 x daily - 5-7 x weekly - 2 sets - 10 reps - Seated Hamstring Stretch - 1 x daily - 7 x weekly - 1 sets - 3 reps - Scapular Retraction with Resistance - 2 x daily - 7 x weekly - 2 sets - 10 reps Episode Visit Count: 3 Therapist That Will Accept/Oversee The Plan Of Care: Velasquez Richardson PT Start of Care Date: 02/14/24 Onset Date: 12/20/23 Plan of Care Certification Date: 02/14/24 Next Certification Due Date: 03/20/24 Patient Identified by Name and Date of : Yes REHABILITATION AND SPORTS THERAPY PHYSICAL THERAPY TREATMENT NOTE ASSESSMENT: Gaston Lainez tolerated the session with fatigue and no issues. He demonstrated improvements in strengthening without pain. The patient will continue to benefit from ongoing skilled physical therapy to progress toward set goals. PLAN FOR NEXT VISIT: Continue with thoracic and lumbar stretching and strengthening. SUBJECTIVE: Pt reports that he is not feeling bad today. Pt denies any pain, soreness, or stiffness to start todays session. Pain: Pain Pain Level: 0 Pain Location: Thoracic Spine Post Treatment Pain Post Treatment Pain Level: 0 Post Treatment Pain Location: Thoracic Spine OBJECTIVE MEASURES WITH LEVEL OF FUNCTION: Required multiple visual and verbal cues to complete exercises this visit. TREATMENT: Therapeutic Exercise: 1: Seated thoracic rotation with arms extended and fingers laced 2x10 each direction 2: Seated Lower Cervical/Upper Thoracic Paraspinal Stretch: 3x30. 3: Seated thoracic extension over back of chair 2x10 4: Seated horizontal abd/add AROM 2x10 5: *Scapular retractions with GTB 3x10 6: Seated lumbar flexion roll out with 85 cm physioball 3x10 7: Seated HS stretch 3x30 seconds B Skilled Intervention: Patient was educated in proper exercise technique and purpose for exercises. Reviewed and educated patient on additions/changes for home exercise program as above (*). Skilled judgment was used in selection of appropriate interventions. Provided written instruction for home exercise program to facilitate proper performance and compliance. Correct performance of therapeutic exercises was facilitated with verbal and visual cuing. Billing Therapeutic Exercise Treatment Minutes: 34 Skilled Treatment Time Minutes (timed and untimed codes): 34 Total Session Time (minutes): 34 Session Start Time : 1146 Session Stop Time : 1220 LAUREN Lozano PT, DPT. documented in this encounter [facility] 02-28-2024 Note HNO ID: [id number] Author: VELASQUEZ RICHARDSON PT Service: ? Author Type: Physical Therapist Type: Progress Notes Filed: 02/28/2024 12:29 Note Text: Episode Visit Count: 3 Therapist That Will Accept/Oversee The Plan Of Care: Velasquez Richardson PT Start of Care Date: 02/14/24 Onset Date: 12/20/23 Plan of Care Certification Date: 02/14/24 Next Certification Due Date: 03/20/24 Patient Identified by Name and Date of : Yes REHABILITATION AND SPORTS THERAPY PHYSICAL THERAPY TREATMENT NOTE ASSESSMENT: Gaston Lainez tolerated the session with fatigue and no issues. He demonstrated improvements in strengthening without pain. The patient will continue to benefit from ongoing skilled physical therapy to progress toward set goals. PLAN FOR NEXT VISIT: Continue with thoracic and lumbar stretching and strengthening. SUBJECTIVE: Pt reports that he is not feeling bad today. Pt denies any pain, soreness, or stiffness to start todays session. Pain: Pain Pain Level: 0 Pain Location: Thoracic Spine Post Treatment Pain Post Treatment Pain Level: 0 Post Treatment Pain Location: Thoracic Spine OBJECTIVE MEASURES WITH LEVEL OF FUNCTION: Required multiple visual and verbal cues to complete exercises this visit. TREATMENT: Therapeutic Exercise: 1: Seated thoracic rotation with arms extended and fingers laced 2x10 each direction 2: Seated Lower Cervical/Upper Thoracic Paraspinal Stretch: 3x30. 3: Seated thoracic extension over back of chair 2x10 4: Seated horizontal abd/add AROM 2x10 5: *Scapular retractions with GTB 3x10 6: Seated lumbar flexion roll out with 85 cm physioball 3x10 7: Seated HS stretch 3x30 seconds B Skilled Intervention: Patient was educated in proper exercise technique and purpose for exercises. Reviewed and educated patient on additions/changes for home exercise program as above (*). Skilled judgment was used in selection of appropriate interventions. Provided written instruction for home exercise program to facilitate proper performance and compliance. Correct performance of therapeutic exercises was facilitated with verbal and visual cuing. Billing Therapeutic Exercise Treatment Minutes: 34 Skilled Treatment Time Minutes (timed and untimed codes): 34 Total Session Time (minutes): 34 Session Start Time : 1146 Session Stop Time : 1220 LAUREN Lozano, PT, DPT. [facility] 02-24-2024 Instructions Shawanda Hale APRN.[facility] 02/24/2024 11:34 AM EDT Thank you for meeting with me today. Here is the plan we discussed. Continue Aricept 5 mg once daily with breakfast for cognitive and behavioral symptoms of dementia. Please continue to monitor heart rate at home. I will update you on discussion of possible adjustment of Metoprolol dose to reduce effects on slowing heart rate and allow continuation of Aricept since this has been effective for cognitive/behavioral symptoms of dementia We will consider addition of Namenda in the future Look into emergency response systems to improve safety at home Cognitively healthy lifestyle. See the section below Ways to keep your brain healthy A heart healthy diet is a brain healthy diet. The MIND Diet is an evidence based diet proven to slow and protect against cognitive decline. See the section MIND Diet Guidelines below for more information. Follow up with me in 3 months Emergency Response Systems: -The purpose of an Emergency Response System (such as Cellvine or Migo.me) is to increase safety in the home. In the event of a fall or an emergency, help is available at the push of a button. The Personal Help Button connects you to a trained Personal Response Associate who can send help quickly - 24 hours a day, seven days a week. Response Link: 849.567.3795; [employer] ([employer]): [phone] x 3012. Lively: . If you need to cancel/reschedule appointments please call [phone]. If you need to reach our office for any reason prior to your next visit, please contact us through [employer] or call [phone]. Ulysses Hale RN-MSN, [facility] Psychiatric Mental Health Nurse Practitioner [facility] Ways to keep your brain healthy: Follow up regularly with your primary care and other providers to ensure your vascular risk factors (blood pressure, blood sugar, sleep apnea, and cholesterol levels, etc.) are well controlled. Eat a healthy diet, foods that are good for your heart are also good for your brain. It is also important to drink plenty of water to stay hydrated. Exercise - as little as 20 minutes of exercise per day (150 minutes per week) - has been shown to have a positive effect on memory and cognitive function. Maintain an active social life. Get 7-8 hours of sleep per night. If you nap during the day, try to keep napping to a regular schedule. Maintain a predictable and regular daily routine. Try learning new hobbies, games, or skills. Keep your brain active with reading, puzzles, and games. Please refer to healthybrains.org website. It provides evidence based education on diet, exercise and activities that have benefit for memory. MIND Diet guidelines: - Eat 1/2 cup berries, especially blueberries and strawberries, at least 2x per week. - Eat 1 handful (1/4 cup) nuts at least 5x per week. Include walnuts. - Eat 100% whole grains 3x per day (brown rice, wild rice, black rice, quinoa, barley, bulgur, farro, rolled oats, steel cut oats, amaranth, spelt, millet, wheat berries). - Eat 1-2 cups of leafy greens at least 6x per week (spinach, arugula, kale, mustard greens, carolyne greens, dandelion greens, shanta lettuce). - Eat at least 1 other vegetable (other than dark leafy greens) every day. - Eat 1/2 cup beans or lentils at least 3x per week. - Eat fish at least once per week. Choose low mercury fish: salmon, sardines, anchovies, armenta, halibut, scallops. Avoid fried fish and fish high in mercury (swordfish, Bulgarian sea guthrie, orange roughy, ahi tuna, albacore (white) tuna). Choose light/skipjack tuna instead of white tuna, and limit to 2 servings/week because it has some mercury. - Eat chicken at least 2x per week. - Extra virgin olive oil is the primary oil used at home for cooking and on salads. - Limit margarine and butter to less than 1 Tbsp per day. - Limit red meat and processed meats to less than 4x per week. Red meat: beef, pork, feliz, venison, veal, bison. Processed meats: barber, hotdogs, salami, sausage, pepperoni, pastrami, cold cuts, ham - Limit sweets, candy, and pastries to less than 5x per week. - Limit cheese to 1 serving per week or less. 1 serving = 1 ounce. - Limit alcohol to 1 drink per day for women and 2 drinks per day for men. - Avoid fried foods and fast foods. Other sources of information and support: When there is a diagnosis of memory problems, no matter the type, we encourage families to educate themselves, learn communication tips, and learn ways to adjust expectations over time. There are many resources available online. Three excellent resources are: The Alzheimer's Association (web site: alz.org/barba) available 24 hours a day, 7 days per week. Contact: Local: ; Toll free: 118.606.4021 Family Caregiver [place] (web site: Caregiver.org) HEATHER Jung-- a secure online solution for quality information, support, and resources for family caregivers. Contact: Toll-free number: [phone] Alzheimers.gov - Find Alzheimer disease and related dementias information, resources, research and more. documented in this encounter [facility] 02-24-2024 History of Present illness Narrative Gaston Lainez 1950 [id number] [facility] [id number] [facility] FOLLOW-UP NOTE Accompanied by: spouse (Marilynn) Advanced Directives: SUBJECTIVE Gaston Lainez is a 73 year old male seen today for a follow up visit. Gaston Lainez is being followed for Major neurocognitive disorder, likely multifactorial given complex history of TBI, bipolar disorder with psychotic episodes, but significant generalized cortical atrophy including hippocampal atrophy on MRI brain is concerning for a neurodegenerative condition such as Alzheimer's disease. Possibility of comorbid LBD remains but difficult to distinguish given complex history. Patient was last seen on 01/27/24. At that time the impression and agreed upon plan of care were as follows, included here in italics. (F03.90) Major neurocognitive disorder (HCC) (primary encounter diagnosis) Comment: likely multifactorial given complex history of TBI, bipolar disorder with psychotic episodes, but significant generalized cortical atrophy including hippocampal atrophy on MRI brain is concerning for a neurodegenerative condition such as Alzheimer's disease. Possibility of comorbid LBD remains but difficult to distinguish given complex history. Education provided on disease including course/progression, healthy lifestyle, etc. We discussed and agreed upon the following plan of care. Plan: Increase Aricept to 10 mg once daily with breakfast We will consider adding in Namenda (memantine) for preservation of function in those with dementia at next follow up visit Cognitively healthy lifestyle. See the section below Ways to keep your brain healthy A heart healthy diet is a brain healthy diet. The MIND Diet is an evidence based diet proven to slow and protect against cognitive decline. See the section MIND Diet Guidelines below for more information. Follow up 02/24/24 at 12:45 pm to review response and tolerance to increased Aricept 10 mg dose, consider addition of Namenda (memantine), and then plan for transitioning treatment maintenance locally to CARROL Koroma. (R44.1) Visual hallucinations Comment: reduced in interim Plan: donepezil (ARICEPT) 10 mg tablet (R45.1) Restlessness and agitation Comment: reduces in interim Plan: donepezil (ARICEPT) 10 mg tablet (F22) Delusions (HCC) Comment: reduced in interim Plan: donepezil (ARICEPT) 10 mg tablet Current treatment plan includes: Buspar 15 mg twice daily Zyprexa 2.5 mg 1 - 2 tablets at bedtime Aricept 10 mg daily with breakfast Estimated Creatinine Clearance: 79 mL/min (based on SCr of 0.9 mg/dL). (Ok for possible initiation of Namenda) Today, the patient/caregiver reports the following changes/concerns in the interim. CC: I think he's doing good Response/tolerance to Aricept 10 mg once daily: caused bradycardia (bpm in 40's) and fatigue. Spouse reduced dose back to 5 mg and fatigue has improved. Perhaps increased secretions rhinorrhea and sialorrhea with Aricept) Pulse today is 45 & 46 bpm (rechecked manually) He denies symptoms of lightheadedness/dizziness. Still may awaken form dreams and think something has happened which hasn't. No clear delusions or hallucinations while awake Other Interval history: Memory/Cognition: Patient describes their memory/cognition as better Family reports seems like it's a little better. Functional Status: stable in the interim 5-6: Activities of Daily Living, Driving Functional Assessment: independent with ADLs and assistance/dependent with IADLs Living Situation & Setting: house, with spouse Is the patient left alone? yes Social Work or other Agencies involved: DISHA Banuelos see 02/06/24 note Safety Assessment: Emergency Response/Aware of 911: knows to call fire department but doesn't know 911 Medical Alert System: none, provided info on emergency response systems Driving Status/Concerns: not driving Wandering behavior: none Firearms access: hunting rifles/locked, unloaded Mood: Patient describes their mood as pretty good. Anxiety: I worry about things, job related stuff Behavior: Psychomotor Agitation: occasionally pacing, they report Buspar dosing twice daily helps reduce this Aggression: No Irritability: No Lability: No Disinhibition/socially inappropriate behavior/change in personality: No Parkinsonism: Tremor/Bradykinesia/Rigidity/Freezing: Postural Instability (Impaired Balance and Coordination) and gait instability Psychosis: Delusions: None, confusional awakenings Hallucinations: None Present SI/HI/PDW: No Obsessions, compulsions, or hoarding behaviors: decreased significantly (previously regretting selling property to a neighbor) Sleep: described as normal, feels rested upon waking. Sometimes waking confused thinking something he may have been dreaming about is really happening. Spouse reorients him effectively. Appetite/eating disturbance/behaviors: normal Weight loss/gain: No Physical activity: Program: Moderate regular exercise program 3 days/week, also doing PT Falls in the interim: no Use of assistive device: none ETOH use: occasional and only one drink (wine/beer) in a sitting. Caregiver Stress/[place]: yes, but improvement with improved symptom control Past medical history, social history, allergies, and full medication list reviewed by Shawanda Hale APRN.[facility] --------- REVIEW OF SYSTEMS: Weight change/Appetite: none Hearing: corrected with hearing aids Vision: grossly intact Change in memory problems : yes, see HPI Constipation, Diarrhea: denies Incontinence: none Chest pain, PND, orthopnea: none Edema: none Dyspnea: none Presence of pain and effect on function? Back pain and left hip pain Falls/injuries/accidents: none NEURO: SEE HPI OBJECTIVE Physical Exam: Vital Signs: BP 141/82 Pulse (!) 45 Wt 77.9 kg (171 lb 11.2 oz) BMI 23.29 kg/m Neurological Exam Reflexes Deep tendon reflexes graded by MRC Mental Status Exam: Cognition & Orientation:alert and oriented to self Appearance: normal grooming and appropriately attired Eye contact: normal Facial expression: neutral Psychomotor: normal Speech/Language: fluent, circumstantial Mood: pretty good Affect: restricted Thought Process: loose associations Thought Content: no delusions Hallucinations: Patient Denies, None Noted Judgment: impaired due to dementia and lack of insight Insight: poor David Cognitive Assessment (MoCA) Will not reassess MoCA due to significant global cognitive impairment. Diagnostic Results Reviewed: LABS: Lab Results Component Value Date TSH 1.620 11/26/2022 B12 1,406 (H) 06/10/2023 FOLATE 18.4 05/05/2023 MOCA: 12/19/2023 MoCA MOCA TOTAL SCORE 7 out of 30 Visuospatial/ Executive 1 Naming 3 Attention 1 Language 0 Abstraction 0 Delayed Recall 0 Orientation 1 Education Level 1 MRI BRAIN IMAGING REVIEW: 01/20/2024 8:23 AM - Radiology, [place] IMPRESSION: * No apparent acute intracranial process or intracranial mass. * Moderate generalized cortical volume loss and mild generalized white matter volume loss. * Hippocampal volumes at the third percentile when compared to age matched normal controls by quantitative analysis. * Minimal white matter disease which is nonspecific but likely reflective of chronic microvascular ischemia. * No evidence of parenchymal microhemorrhages by MRI. CSF Testing: none Neuropsychology Testing: none IMPRESSION/ASSESSMENT/PLAN: (F03.90) Major neurocognitive disorder (HCC) Comment: Could not tolerate increased dose of Aricept due to bradycardia and fatigue. On 5 mg daily dose fatigue is improved but today he remains bradycardic. Underlying etiology likely multifactorial given complex history of TBI, bipolar disorder with psychotic episodes, but significant generalized cortical atrophy including hippocampal atrophy on MRI brain is concerning for a neurodegenerative condition such as Alzheimer's disease. Possibility of comorbid LBD remains but difficult to distinguish given complex history. Education provided on disease including course/progression, healthy lifestyle, etc. We discussed and agreed upon the following plan of care. Plan: Continue Aricept 5 mg once daily with breakfast for cognitive and behavioral symptoms of dementia. Please continue to monitor heart rate at home. I will update you on discussion of possible adjustment of Metoprolol dose to reduce effects on slowing heart rate and allow continuation of Aricept since this has been effective for cognitive/behavioral symptoms of dementia We will consider addition of Namenda in the future Look into emergency response systems to improve safety at home Cognitively healthy lifestyle. See the section below Ways to keep your brain healthy A heart healthy diet is a brain healthy diet. The MIND Diet is an evidence based diet proven to slow and protect against cognitive decline. See the section MIND Diet Guidelines below for more information. Follow up with me in 3 months Emergency Response Systems: -The purpose of an Emergency Response System (such as Cellvine or Migo.me) is to increase safety in the home. In the event of a fall or an emergency, help is available at the push of a button. The Personal Help Button connects you to a trained Personal Response Associate who can send help quickly - 24 hours a day, seven days a week. Response Link: 163.486.1434; Cellvine: [phone] x 3012. Lively: . (R44.1) Visual hallucinations Plan: donepezil (ARICEPT) 5 mg tablet (R45.1) Restlessness and agitation Plan: donepezil (ARICEPT) 5 mg tablet (F22) Delusions (HCC) Plan: donepezil (ARICEPT) 5 mg tablet Risks and benefits of medication(s), including any black box warnings, were discussed with the patient. I spent a total of 37 minutes on the date of the service which included preparing to see the patient, [id number] patient care, completing clinical documentation, obtaining and/or reviewing separately obtained history, counseling and educating the patient/family/caregiver, and ordering medications, tests, or procedures. ADD ON PSYCHOTHERAPY CODE: Alie Hale RN-MSN, [employer] REPRESENTATIVE Psychiatric Mental Health Nurse Practitioner [facility] February 24, 2024, 8:01 AM CC: 1. Elif Mckinley PA-C, (fax) [phone] documented in this encounter [facility] 02-24-2024 Note HNO ID: [id number] Author: SHAWANDA HALE APRN.JUSTICE Service: ? Author Type: Nurse Practitioner Type: Progress Notes Filed: 02/29/2024 14:05 Note Text: Gaston Lainez 1950 [id number] [facility] [address] [facility] FOLLOW-UP NOTE Accompanied by: spouse (Marilynn) Advanced Directives: SUBJECTIVE Gaston Lainez is a 73 year old male seen today for a follow up visit. Gaston Lainez is being followed for Major neurocognitive disorder, likely multifactorial given complex history of TBI, bipolar disorder with psychotic episodes, but significant generalized cortical atrophy including hippocampal atrophy on MRI brain is concerning for a neurodegenerative condition such as Alzheimer's disease. Possibility of comorbid LBD remains but difficult to distinguish given complex history. Patient was last seen on 01/27/24. At that time the impression and agreed upon plan of care were as follows, included here in italics. (F03.90) Major neurocognitive disorder (HCC) (primary encounter diagnosis) Comment: likely multifactorial given complex history of TBI, bipolar disorder with psychotic episodes, but significant generalized cortical atrophy including hippocampal atrophy on MRI brain is concerning for a neurodegenerative condition such as Alzheimer's disease. Possibility of comorbid LBD remains but difficult to distinguish given complex history. Education provided on disease including course/progression, healthy lifestyle, etc. We discussed and agreed upon the following plan of care. Plan: Increase Aricept to 10 mg once daily with breakfast We will consider adding in Namenda (memantine) for preservation of function in those with dementia at next follow up visit Cognitively healthy lifestyle. See the section below Ways to keep your brain healthy A heart healthy diet is a brain healthy diet. The MIND Diet is an evidence based diet proven to slow and protect against cognitive decline. See the section MIND Diet Guidelines below for more information. Follow up 02/24/24 at 12:45 pm to review response and tolerance to increased Aricept 10 mg dose, consider addition of Namenda (memantine), and then plan for transitioning treatment maintenance locally to Alexus, PMHNP. (R44.1) Visual hallucinations Comment: reduced in interim Plan: donepezil (ARICEPT) 10 mg tablet (R45.1) Restlessness and agitation Comment: reduces in interim Plan: donepezil (ARICEPT) 10 mg tablet (F22) Delusions (HCC) Comment: reduced in interim Plan: donepezil (ARICEPT) 10 mg tablet Current treatment plan includes: Buspar 15 mg twice daily Zyprexa 2.5 mg 1 - 2 tablets at bedtime Aricept 10 mg daily with breakfast Estimated Creatinine Clearance: 79 mL/min (based on SCr of 0.9 mg/dL). (Ok for possible initiation of Namenda) Today, the patient/caregiver reports the following changes/concerns in the interim. CC: I think he's doing good Response/tolerance to Aricept 10 mg once daily: caused bradycardia (bpm in 40's) and fatigue. Spouse reduced dose back to 5 mg and fatigue has improved. Perhaps increased secretions rhinorrhea and sialorrhea with Aricept) Pulse today is 45 AND 46 bpm (rechecked manually) He denies symptoms of lightheadedness/dizziness. Still may awaken form dreams and think something has happened which hasn't. No clear delusions or hallucinations while awake Other Interval history: Memory/Cognition: Patient describes their memory/cognition as better Family reports seems like it's a little better. Functional Status: stable in the interim 5-6: Activities of Daily Living, Driving Functional Assessment: independent with ADLs and assistance/dependent with IADLs Living Situation AND Setting: house, with spouse Is the patient left alone? yes Social Work or other Agencies involved: DISHA Banuelos see 02/06/24 note Safety Assessment: Emergency Response/Aware of 911: knows to call fire department but doesn't know 911 Medical Alert System: none, provided info on emergency response systems Driving Status/Concerns: not driving Wandering behavior: none Firearms access: hunting rifles/locked, unloaded Mood: Patient describes their mood as pretty good. Anxiety: I worry about things, job related stuff Behavior: Psychomotor Agitation: occasionally pacing, they report Buspar dosing twice daily helps reduce this Aggression: No Irritability: No Lability: No Disinhibition/socially inappropriate behavior/change in personality: No Parkinsonism: Tremor/Bradykinesia/Rigidity/Freezing: Postural Instability (Impaired Balance and Coordination) and gait instability Psychosis: Delusions: None, confusional awakenings Hallucinations: None Present SI/HI/PDW: No Obsessions, compulsions, or hoarding behaviors: decreased significantly (previously regretting selling property to a neighbor) (more content not included)... [facility] 02-24-2024 Nurse Note Gaston Lainez is a 73 year old year old man accompanied by: spouse. Do you have any changes or new concerns you would like to address at the visit today? Med update Vital Signs: BP 141/82 Pulse (!) 45 Wt 77.9 kg (171 lb 11.2 oz) BMI 23.29 kg/m [facility] 02-24-2024 Nurse Note Gaston Lainez is a 73 year old year old man accompanied by: spouse. Do you have any changes or new concerns you would like to address at the visit today? Med update Vital Signs: BP 141/82 Pulse (!) 45 Wt 77.9 kg (171 lb 11.2 oz) BMI 23.29 kg/m documented in this encounter [facility] 02-21-2024 History of Present illness Narrative Program_ID:[id number] Access Code: [email or web address] URL: [email or web address] Date: 02-21-2024 Prepared By: Velasquez Richardson Program Notes Exercises - Hooklying Single Knee to Chest Stretch - 2 x daily - 5-7 x weekly - 3 sets - reps - Supine Double Knee to Chest - 2 x daily - 5-7 x weekly - 3 sets - reps - Seated Repeated Flexion - 2 x daily - 5-7 x weekly - 2 sets - 10-15 reps - Seated Lumbar Flexion Stretch - 2 x daily - 5-7 x weekly - 3 sets - reps - Standing Lower Cervical and Upper Thoracic Stretch - 2 x daily - 5-7 x weekly - 2-3 sets - reps - Seated Scapular Retraction - 2 x daily - 5-7 x weekly - 2 sets - 10 reps - Seated Hamstring Stretch - 1 x daily - 7 x weekly - 1 sets - 3 reps Episode Visit Count: 2 Therapist That Will Accept/Oversee The Plan Of Care: Velasquez Richardson PT Start of Care Date: 02/14/24 Onset Date: 12/20/23 Plan of Care Certification Date: 02/14/24 Next Certification Due Date: 03/20/24 Patient Identified by Name and Date of : Yes REHABILITATION AND SPORTS THERAPY PHYSICAL THERAPY TREATMENT NOTE ASSESSMENT: Gaston Lainez tolerated the session with fatigue and expected muscle soreness. He demonstrated improvements in tightness in thoracic spine with stretching . The patient will continue to benefit from ongoing skilled physical therapy to progress toward set goals. PLAN FOR NEXT VISIT: Asses response to thoracic mobility exercise and give for HEP if favorable SUBJECTIVE: Pt reports that he is not feeling too bad today. Pt states that he just got diagnosed with dementia. Pt states that his back hurt worse after last visit. Pt states that as his muscles fatigue throughout the day he feels more painful. Pain: Pain Pain Level: 8 Pain Location: Thoracic Spine (Across the back of the shoulders.) Post Treatment Pain Post Treatment Pain Location: Thoracic Spine OBJECTIVE MEASURES WITH LEVEL OF FUNCTION: Increased HS tightness on LLE compared to RLE TREATMENT: Therapeutic Exercise: 1: Seated thoracic rotation with arms extended and fingers laced 2x10 each direction 2: Seated thoracic extension over back of chair 2x10 3: Scapular retractions 2x10 4: Seated horizontal abd/add AROM 2x10 5: Seated lumbar flexion roll outwith 85 cm physioabll 3x10 6: SKTC 3x30 seconds B 7: DKTC 3x30 seconds 8: *Seated HS stretch 3x30 seconds B Skilled Intervention: Patient was educated in proper exercise technique and purpose for exercises. Reviewed and educated patient on additions/changes for home exercise program as above (*). Skilled judgment was used in selection of appropriate interventions. Provided written instruction for home exercise program to facilitate proper performance and compliance. Correct performance of therapeutic exercises was facilitated with verbal and visual cuing. Billing Therapeutic Exercise Treatment Minutes: 45 Skilled Treatment Time Minutes (timed and untimed codes): 45 Total Session Time (minutes): 45 Session Start Time : 1015 Session Stop Time : 1100 LAUREN Lozano PT documented in this encounter [facility] 02-21-2024 Note HNO ID: [id number] Author: DONOVAN GALLO PT Service: ? Author Type: Physical Therapist Type: Progress Notes Filed: 02/22/2024 10:01 Note Text: Episode Visit Count: 2 Therapist That Will Accept/Oversee The Plan Of Care: Velasquez Richardson PT Start of Care Date: 02/14/24 Onset Date: 12/20/23 Plan of Care Certification Date: 02/14/24 Next Certification Due Date: 03/20/24 Patient Identified by Name and Date of : Yes REHABILITATION AND SPORTS THERAPY PHYSICAL THERAPY TREATMENT NOTE ASSESSMENT: Gaston Lainez tolerated the session with fatigue and expected muscle soreness. He demonstrated improvements in tightness in thoracic spine with stretching . The patient will continue to benefit from ongoing skilled physical therapy to progress toward set goals. PLAN FOR NEXT VISIT: Asses response to thoracic mobility exercise and give for HEP if favorable SUBJECTIVE: Pt reports that he is not feeling too bad today. Pt states that he just got diagnosed with dementia. Pt states that his back hurt worse after last visit. Pt states that as his muscles fatigue throughout the day he feels more painful. Pain: Pain Pain Level: 8 Pain Location: Thoracic Spine (Across the back of the shoulders.) Post Treatment Pain Post Treatment Pain Location: Thoracic Spine OBJECTIVE MEASURES WITH LEVEL OF FUNCTION: Increased HS tightness on LLE compared to RLE TREATMENT: Therapeutic Exercise: 1: Seated thoracic rotation with arms extended and fingers laced 2x10 each direction 2: Seated thoracic extension over back of chair 2x10 3: Scapular retractions 2x10 4: Seated horizontal abd/add AROM 2x10 5: Seated lumbar flexion roll outwith 85 cm physioabll 3x10 6: SKTC 3x30 seconds B 7: DKTC 3x30 seconds 8: *Seated HS stretch 3x30 seconds B Skilled Intervention: Patient was educated in proper exercise technique and purpose for exercises. Reviewed and educated patient on additions/changes for home exercise program as above (*). Skilled judgment was used in selection of appropriate interventions. Provided written instruction for home exercise program to facilitate proper performance and compliance. Correct performance of therapeutic exercises was facilitated with verbal and visual cuing. Billing Therapeutic Exercise Treatment Minutes: 45 Skilled Treatment Time Minutes (timed and untimed codes): 45 Total Session Time (minutes): 45 Session Start Time : 1015 Session Stop Time : 1100 LAUREN Lozano PT [facility] 02-14-2024 History of Present illness Narrative Program_ID:[id number] Access Code: [email or web address] URL: [email or web address] Date: 02-14-2024 Prepared By: Velasquez Richardson Program Notes Exercises - Hooklying Single Knee to Chest Stretch - 2 x daily - 5-7 x weekly - 3 sets - reps - Supine Double Knee to Chest - 2 x daily - 5-7 x weekly - 3 sets - reps - Seated Repeated Flexion - 2 x daily - 5-7 x weekly - 2 sets - 10-15 reps - Seated Lumbar Flexion Stretch - 2 x daily - 5-7 x weekly - 3 sets - reps - Standing Lower Cervical and Upper Thoracic Stretch - 2 x daily - 5-7 x weekly - 2-3 sets - reps - Seated Scapular Retraction - 2 x daily - 5-7 x weekly - 2 sets - 10 reps Images from the original note were not included. Episode Visit Count: 1 Therapist That Will Accept/Oversee The Plan Of Care: Velasquez Richardson PT Start of Care Date: 02/14/24 Onset Date: 12/20/23 Plan of Care Certification Date: 02/14/24 Next Certification Due Date: 03/20/24 Patient Identified by Name and Date of : Yes REHABILITATION AND SPORTS THERAPY PHYSICAL THERAPY EVALUATION PLAN OF CARE: Assessment: Gaston Lainez presents with chief complaint of upper thoracic pain that interferes with walking, physical activities, lifting, heavy exertion, standing (Household mgmt chores.) . Pain presents muscular in nature. He presents with impairments in ADL's/IADLs, flexibility, independence in exercise, overall function, posture, range of motion, soft tissue healing, symptom management, and tissue tenderness. PROMIS (Patient-Reported Outcomes Measurement Information System) scores were reviewed and identified as a rehabilitation concern. Prognosis for therapy is Excellent due to: current objective clinical presentation, good overall health status, acuteness of condition, positive past response to therapy, within-session changes, good support system/ coping skills . Patient will benefit from c/s paraspinal and periscap strengthening and thoracic mobility. He will benefit from skilled therapy services to meet the goals established for this plan of care as noted below. Classification Pain Mechanism Classification: Nociceptive Low Back Pain Classification: Movement Control Goals for Episode of Care: created on 02/14/24 through 03/27/24 Patient reported outcome of self-efficacy will increase T-score by a minimum 5 points. [place] in home exercise program. Patient will decrease pain rating by 2 points to meet minimal clinical important difference for numeric pain rating scale. Restore pain-free thoracic and lumbar ROM to WNL to allow for improved ADL/IADLs Maintain proper spine posture throughout session during sitting / standing / walking to demonstrate increased awareness and decreased overall pain. Improve B Hamstring flexibility for improved bending. Patient will report complete return to prior level of function without limitations in 6 weeks or less. Patient Goals: Return to PLOF and exercise, alleviate pain. Planned Interventions, Frequency, and Duration: Current Frequency: 1x/week Duration: 4 weeks Total Number of Visits Planned: 4 Planned Treatment Interventions: Therapeutic exercise (23199), Neuromuscular re-education (64250), Manual therapy (53828), Therapeutic activities (05911), Self-skilled nursing management (00034), Patient/Family/Caregiver Education, Body Mechanics Training PLAN FOR NEXT VISIT: Assess response to HEP; resisted scapular rows and shoulder pulldowns, thoracic mobility. Patient demonstrates good understanding of plan of care and treatment. The above goals and plan of care were discussed and agreed upon by patient/family. SUBJECTIVE: Patient reports 6-8 weeks insidious pain came on in the middle of the back/right behind the shoulders, this altered his posture with walking and he would slump/bend forward to get relief; has been trying to do exercises at the [facility] but unable to due to pain (sharp/strain) in the involved area. Notes the low back can bother him, pain switches from side to side. Pain feels like a muscle being pulled/strained per patient. Denies N/T down B LEs. No bowel/bladder issues. No abnormal weakness. Patient Goals: Return to PLOF and exercise, alleviate pain. Functional Limitations: walking, physical activities, lifting, heavy exertion, standing (Household mgmt chores.) Prior Level of Function: Independent without limitations Relevant History Employment: Retired Recreation / Current Exercise: Gym 3-4x a week. Intake Information: Prescription present Previous Treatment: None Falls Interview: No positive findings with falls interview PAST MEDICAL HISTORY Diagnosis Date Abnormal stress echocardiogram 01/14/2021 01/21/[address] Barragan: right dominant. LMT min luminal, LAD mild diffuse, LCx mild luminal with large caliber nondominant vessel extending into a single large obtuse marginal branch, proximal vessel is mildly calcified +mild luminal irreg, RCA 40% Large-caliber dominant vessel: moderate calcification from the proximal to mid vessel, mild diffuse ectatic disease proximal.The ostium of the Anxiety state, unspecified 10/24/2007 Benign paroxysmal positional vertigo one remote episode Bunion Chronic obstructive asthma, unspecified 10/24/2007 Depression likely bipolar disorder Depressive disorder, not elsewhere classified 10/24/2007 Generalized anxiety disorder 10/24/2007 History of marijuana use 03/02/2016 Quit 08/2015 Hypermobility syndrome Mild coronary artery disease Mixed hyperlipidemia 11/27/2008 Nontraumatic rupture of tendons of biceps (long head) R, 10/07 L OCD (obsessive compulsive disorder) Pneumonia, organism unspecified(486) 11/2001 bilateral: cleared Primary insomnia 03/02/2016 Pain: Pain Pain Level: 4 Pain Location: Thoracic Spine (Across the back of the shoulders.) Description: Pressure, Sharp Frequency: With movement Post Treatment Pain Post Treatment Pain Level: Better Post Treatment Pain Location: Thoracic Spine PROMIS Scales 02/14/2024 05/04/2023 02/14/2023 Higher is Better Phys Func - Score 45 (within normal limits) 45 (within normal limits) 41 (mild dysfunction) Phys Func - Percentile 31 31 18 Self-Eff Symptom - Score 39 (Low) 46 (Average) Self-Eff Symptom - Percentile 14 34 T-scores: mean of general population = 50. 5 points is clinically meaningfully difference Percentiles provide an indication of how the patient's score ranks in relation to the general population. Higher percentile rankings indicate better function/quality of life. 50th percentile is the average of the general population and indicates half of respondents had a worse score. OBJECTIVE MEASURES WITH LEVEL OF FUNCTION: Posture / Alignment Posture: Forward head, Rounded shoulders Spine Observations R Thoracic Spine Palpation Tenderness: Paraspinals, Medial border- Scapula, Trapezius L Thoracic Spine Palpation Tenderness: Paraspinals, Medial border- Scapula, Trapezius Sensation - Lumbar Sensation: Grossly Intact Lumbar Spine AROM Lumbar Flexion: Minimal limitation (Limited due to B HS Tightness causing the Knees to bend for more movement toward the floor.) Lumbar Extension: Normal Lumbar R Side-Bend: Normal Lumbar L Side-Bend: Normal Lumbar R Rotation: Normal Lumbar L Rotation: Normal Thoracic Spine AROM Thoracic Flexion: Minimal limitation Thoracic Extension: Minimal limitation Thoracic Sidebend Right: Minimal limitation Thoracic Sidebend Left: Minimal limitation Thoracic Rotation Right: Minimal limitation Thoracic Rotation Left: Minimal limitation LE Flexibility Flexibility: Hamstring Flexibility R Hamstring Flexibility: -45 L Hamstring Flexibility: -45 Spine Joint Mobility Joint Mobility Comment: C/S AROM: Limitation in SB and ROT Bilat. LE Strength R LE Strength: Grossly 5/5 L LE Strength: Grossly 5/5 Functional Strength Functional Strength: C/S Strength: 5/5 Grossly; B UE 5/5 Grossly. Special Tests - Hip and Spine Hip and Spine Special Tests: SLR Test SLR Test: Left Negative, Right Negative Gait Gait Observation: Slight proximal trunk lean/bend; slight sway side to side. (Patient reports balance is not the best). Education: Education Learning/educational needs: Safety, Home exercise program, Plan of Care, Posture, Body Mechanics TREATMENT: PT Treatment Interventions: Therapeutic Exercise, Manual Therapy Evaluation Therapeutic Exercise: 1: *SKC: 1x30 ea. 2: *DKC: 1x30. 3: *Repeated Lumbar Flexion in Sittinx10. 4: *Seated Lumbar Flexion Stretch: [id number]. 5: *Seated Scapular Squeezes: 1x10, 1-sec hold. 6: *Seated Lower Cervical/Upper Thoracic Paraspinal Stretch: 1x30. 7: Patient educated on evaluation findings, rehabilitation process, timeframe for goals, and anatomy relevant to diagnosis. Discussed purpose of the exercises, HEP handout was provided to the pt. HEP discussed in detail with how to safely and properly perform each therapeutic exercise. 8: Pt was advised to stop any exercise/activity/movement that causes increased pain or brings on his concordant pain. Discussed modifying current workout regiman to replicate this. Skilled Intervention: Patient was educated in proper exercise technique and purpose for exercises. Reviewed and educated patient on additions/changes for home exercise program as above (*). Skilled judgment was used in selection of appropriate interventions. Provided written instruction for home exercise program to facilitate proper performance and compliance. Correct performance of therapeutic exercises was facilitated with verbal, visual, and tactile cuing. Manual Therapy: 1: IaSTM & CFM to B Lower Cervical and Thoracic Paraspinals: Push to tolerance. Skilled Intervention: Manual skills to improve joint mobility, ROM, and decrease pain. Utilized anatomy knowledge of the therapist, and assessment of patient's response to intervention. Billing * Evaluation Low Complexity: 1 Unit Therapeutic Exercise Treatment Minutes: 15 Manual TherapyTreatment Minutes: 10 Skilled Treatment Time Minutes (timed and untimed codes): 41 Total Session Time (minutes): 41 Session Start Time : 833 Session Stop Time : 914 Physical Therapy Evaluation Velasquez Richardson PT documented in this encounter [facility] 02-14-2024 Note HNO ID: [id number] Author: VELASQUEZ RICHARDSON PT Service: ? Author Type: Physical Therapist Type: Progress Notes Filed: 02/14/2024 12:39 Note Text: Episode Visit Count: 1 Therapist That Will Accept/Oversee The Plan Of Care: Velasquez Richardson PT Start of Care Date: 02/14/24 Onset Date: 12/20/23 Plan of Care Certification Date: 02/14/24 Next Certification Due Date: 03/20/24 Patient Identified by Name and Date of : Yes REHABILITATION AND SPORTS THERAPY PHYSICAL THERAPY EVALUATION PLAN OF CARE: Assessment: Gaston Lainez presents with chief complaint of upper thoracic pain that interferes with walking, physical activities, lifting, heavy exertion, standing (Household mgmt chores.) . Pain presents muscular in nature. He presents with impairments in ADL's/IADLs, flexibility, independence in exercise, overall function, posture, range of motion, soft tissue healing, symptom management, and tissue tenderness. PROMIS? (Patient-Reported Outcomes Measurement Information System) scores were reviewed and identified as a rehabilitation concern. Prognosis for therapy is Excellent due to: current objective clinical presentation, good overall health status, acuteness of condition, positive past response to therapy, within-session changes, good support system/ coping skills . Patient will benefit from c/s paraspinal and periscap strengthening and thoracic mobility. He will benefit from skilled therapy services to meet the goals established for this plan of care as noted below. Classification Pain Mechanism Classification: Nociceptive Low Back Pain Classification: Movement Control Goals for Episode of Care: created on 02/14/24 through 03/27/24 Patient reported outcome of self-efficacy will increase T-score by a minimum 5 points. [place] in home exercise program. Patient will decrease pain rating by 2 points to meet minimal clinical important difference for numeric pain rating scale. Restore pain-free thoracic and lumbar ROM to WNL to allow for improved ADL/IADLs Maintain proper spine posture throughout session during sitting / standing / walking to demonstrate increased awareness and decreased overall pain. Improve B Hamstring flexibility for improved bending. Patient will report complete return to prior level of function without limitations in 6 weeks or less. Patient Goals: Return to PLOF and exercise, alleviate pain. Planned Interventions, Frequency, and Duration: Current Frequency: 1x/week Duration: 4 weeks Total Number of Visits Planned: 4 Planned Treatment Interventions: Therapeutic exercise (32826), Neuromuscular re-education (51546), Manual therapy (78206), Therapeutic activities (81334), Self-skilled nursing management (11732), Patient/Family/Caregiver Education, Body Mechanics Training PLAN FOR NEXT VISIT: Assess response to HEP; resisted scapular rows and shoulder pulldowns, thoracic mobility. Patient demonstrates good understanding of plan of care and treatment. The above goals and plan of care were discussed and agreed upon by patient/family. SUBJECTIVE: Patient reports 6-8 weeks insidious pain came on in the middle of the back/right behind the shoulders, this altered his posture with walking and he would slump/bend forward to get relief; has been trying to do exercises at the [facility] but unable to due to pain (sharp/strain) in the involved area. Notes the low back can bother him, pain switches from side to side. Pain feels like a muscle being pulled/strained per patient. Denies N/T down B LEs. No bowel/bladder issues. No abnormal weakness. Patient Goals: Return to PLOF and exercise, alleviate pain. Functional Limitations: walking, physical activities, lifting, heavy exertion, standing (Household mgmt chores.) Prior Level of Function: Independent without limitations Relevant History Employment: Retired Recreation / Current Exercise: Gym 3-4x a week. Intake Information: Prescription present Previous Treatment: None Falls Interview: No positive findings with falls interview PAST MEDICAL HISTORY Diagnosis Date Abnormal stress echocardiogram 01/14/2021 01/21/[address] Barragan: right dominant. LMT min luminal, LAD mild diffuse, LCx mild luminal with large caliber nondominant vessel extending into a single large obtuse marginal branch, proximal vessel is mildly calcified +mild luminal irreg, RCA 40% Large-caliber dominant vessel: moderate calcification from the proximal to mid vessel, mild diffuse ectatic disease proximal.The ostium of the Anxiety state, unspecified 10/24/2007 Benign paroxysmal positional vertigo one remote episode Bunion Chronic obstructive asthma, unspecified 10/24/2007 Depression likely bipolar disorder Depressive disorder, not elsewhere classified 10/24/2007 Generalized anxiety disorder 10/24/2007 History of marijuana use 03/02/2016 Quit 08/2015 Hypermobility syndrome Mild coronary artery disease Mixed (more content not included)... [facility] 02-07-2024 Note HNO ID: [id number] Author: RUSSELL PRASAD PA-C Service: ? Author Type: Physician Isotope Hydrologist Type: Progress Notes Filed: 02/07/2024 19:38 Note Text: [facility] EST PATIENT CLINIC NOTE NAME: Gaston Lainez CHIEF COMPLAINT: Nocturia and Urgency HISTORY OF PRESENT ILLNESS: Gaston Lainez is a 73 year old male presenting follow-up for Nocturia and Urgency He continues Flomax and PVR is 181 ml, higher than previous but he feels empty will continue to monitor Likely he has been getting up for other reasons and then gotten into habit of getting up 4 times over an extended time He Increased water intake 48-60 oz water and has improved PSA - 1.56 LUTS: Improved with increase in Water intake Other symptoms: LABS: PSA (ng/mL) Date Value 03/17/2020 1.32 02/22/2019 1.23 02/24/2017 1.29 02/28/2016 1.81 PSA Screening (ng/mL) Date Value 10/05/2023 1.56 10/21/2022 3.13 MEDICATIONS: Tadalafil (CIALIS) 10 mg tablet 1-2 tabs daily as needed donepezil (ARICEPT) 10 mg tablet Take 1 tablet by mouth daily with breakfast. OLANZapine (ZYPREXA) 2.5 mg tablet use 1 to 2 tablets at bedtime busPIRone (BUSPAR) 15 mg tablet TAKE 1 TABLET BY MOUTH TWICE A DAY fluticasone-salmeterol (WIXELA INHUB) 250-50 mcg/dose inhaler Inhale 1 Puff as instructed two times a day. albuterol HFA (VENTOLIN HFA) 90 mcg/actuation inhaler Inhale 2 Puffs as instructed every 4 hours as needed for wheezing/shortness of breath. metoprolol succinate ER (TOPROL XL) 25 mg 24 hr tablet Take 1 tablet by mouth once daily. atorvastatin (LIPITOR) 40 mg tablet Take 1 tablet by mouth once daily. MULTIVITAMIN ORAL Take by mouth once daily. docusate sodium (COLACE) 100 mg capsule Take 1 capsule by mouth twice daily. [START ON 04/02/2024] tamsulosin (FLOMAX) 0.4 mg Take 1 capsule by mouth daily at bedtime. Patient should start on April 02, 2024. predniSONE (DELTASONE) 20 mg tablet Take 60 mg by mouth once daily. (Patient not taking: Reported on 02/07/2024) OTC PRODUCT Take 1 tablet by mouth once daily. PREVAGEN REGULAR STRENGTH (Patient not taking: Reported on 02/07/2024) polyethylene glycol 3350 (MIRALAX) 17 gram/dose powder 17g (1 scoop) with 8 oz daily as needed for constipation PAST MEDICAL HISTORY: PAST MEDICAL HISTORY Diagnosis Date Abnormal stress echocardiogram 01/14/2021 01/21/[address] Barragan: right dominant. LMT min luminal, LAD mild diffuse, LCx mild luminal with large caliber nondominant vessel extending into a single large obtuse marginal branch, proximal vessel is mildly calcified +mild luminal irreg, RCA 40% Large-caliber dominant vessel: moderate calcification from the proximal to mid vessel, mild diffuse ectatic disease proximal.The ostium of the Anxiety state, unspecified 10/24/2007 Benign paroxysmal positional vertigo one remote episode Bunion Chronic obstructive asthma, unspecified 10/24/2007 Depression likely bipolar disorder Depressive disorder, not elsewhere classified 10/24/2007 Generalized anxiety disorder 10/24/2007 History of marijuana use 03/02/2016 Quit 08/2015 Hypermobility syndrome Mild coronary artery disease Mixed hyperlipidemia 11/27/2008 Nontraumatic rupture of tendons of biceps (long head) R, 10/07 L OCD (obsessive compulsive disorder) Pneumonia, organism unspecified(486) 11/2001 bilateral: cleared Primary insomnia 03/02/2016 REVIEW OF SYSTEMS: GENERAL: No fever, chills, weight loss, or fatigue. PHYSICAL EXAMINATION: Blood pressure 104/74, pulse (!) 56, temperature 36.9 ?C (98.4 ?F), temperature source Temporal, resp. rate 14, height 182.9 cm (6'), weight 78.8 kg (173 lb 12.8 oz), SpO2 99%. GENERAL: WNL nutrition, no deformities, healthy appearing PROBLEM LIST REVIEW: Yes LABS: Results for orders placed or performed in visit on 02/07/24 UA DIP, URINE (POC) Result Value Ref Range GLUCOSE UA (POCT) Negative Negative mg/dL BILIRUBIN UA (POCT) Negative Negative KETONE UA (POCT) Negative Negative mg/dL SPECIFIC GRAVITY UA (POCT) 1.010 1.005 - 1.030 HEMOGLOBIN/BLOOD UA (POCT) Trace-intact (A) Negative PH UA (POCT) 6.0 4.5 - 8.0 PROTEIN UA (POCT) Negative Negative mg/dL UROBILINOGEN UA (POCT) 0.2 Normal E.U./dL NITRITE UA (POCT) Negative Negative LEUKOCYTES UA (POCT) Negative Negative COLOR UA (POCT) Yellow CLARITY UA (POCT) Clear PROCEDURES: PVR: 181 ml IMPRESSION/PLAN: 1. BPH with obstruction/lower urinary tract symptoms - ICD9: 600.01, 599.69, ICD10: N40.1, N13.8 (primary diagnosis) > TAMSULOSIN 0.4 MG CAPSULE > POST VOID RESIDUAL 2. Urinary urgency - ICD9: 788.63, ICD10: R39.15 > Resolved with increase water intake 1-2. Chronic Conditions: Stable and monitored with labs and follow-up visits 1. Medication: Renewed Testing Recommendations: Ordered today > 1 year Appt w/ Landon Prasad, RORY, COLBY, PADuC with PSA prior Russell Burns (more content not included)... [facility] 02-07-2024 History of Present illness Narrative Images from the original note were not included. [facility] [place] [facility] EST PATIENT CLINIC NOTE NAME: Gaston Lainez CHIEF COMPLAINT: Nocturia and Urgency HISTORY OF PRESENT ILLNESS: Gaston Lainez is a 73 year old male presenting follow-up for Nocturia and Urgency He continues Flomax and PVR is 181 ml, higher than previous but he feels empty will continue to monitor Likely he has been getting up for other reasons and then gotten into habit of getting up 4 times over an extended time He Increased water intake 48-60 oz water and has improved PSA - 1.56 LUTS: Improved with increase in Water intake Other symptoms: LABS: PSA (ng/mL) Date Value 03/17/2020 1.32 02/22/2019 1.23 02/24/2017 1.29 02/28/2016 1.81 PSA Screening (ng/mL) Date Value 10/05/2023 1.56 10/21/2022 3.13 MEDICATIONS: Tadalafil (CIALIS) 10 mg tablet 1-2 tabs daily as needed donepezil (ARICEPT) 10 mg tablet Take 1 tablet by mouth daily with breakfast. OLANZapine (ZYPREXA) 2.5 mg tablet use 1 to 2 tablets at bedtime busPIRone (BUSPAR) 15 mg tablet TAKE 1 TABLET BY MOUTH TWICE A DAY fluticasone-salmeterol (WIXELA INHUB) 250-50 mcg/dose inhaler Inhale 1 Puff as instructed two times a day. albuterol HFA (VENTOLIN HFA) 90 mcg/actuation inhaler Inhale 2 Puffs as instructed every 4 hours as needed for wheezing/shortness of breath. metoprolol succinate ER (TOPROL XL) 25 mg 24 hr tablet Take 1 tablet by mouth once daily. atorvastatin (LIPITOR) 40 mg tablet Take 1 tablet by mouth once daily. MULTIVITAMIN ORAL Take by mouth once daily. docusate sodium (COLACE) 100 mg capsule Take 1 capsule by mouth twice daily. [START ON 04/02/2024] tamsulosin (FLOMAX) 0.4 mg Take 1 capsule by mouth daily at bedtime. Patient should start on April 02, 2024. predniSONE (DELTASONE) 20 mg tablet Take 60 mg by mouth once daily. (Patient not taking: Reported on 02/07/2024) OTC PRODUCT Take 1 tablet by mouth once daily. PREVAGEN REGULAR STRENGTH (Patient not taking: Reported on 02/07/2024) polyethylene glycol 3350 (MIRALAX) 17 gram/dose powder 17g (1 scoop) with 8 oz daily as needed for constipation PAST MEDICAL HISTORY: PAST MEDICAL HISTORY Diagnosis Date Abnormal stress echocardiogram 01/14/2021 01/21/[address] Barragan: right dominant. LMT min luminal, LAD mild diffuse, LCx mild luminal with large caliber nondominant vessel extending into a single large obtuse marginal branch, proximal vessel is mildly calcified +mild luminal irreg, RCA 40% Large-caliber dominant vessel: moderate calcification from the proximal to mid vessel, mild diffuse ectatic disease proximal.The ostium of the Anxiety state, unspecified 10/24/2007 Benign paroxysmal positional vertigo one remote episode Bunion Chronic obstructive asthma, unspecified 10/24/2007 Depression likely bipolar disorder Depressive disorder, not elsewhere classified 10/24/2007 Generalized anxiety disorder 10/24/2007 History of marijuana use 03/02/2016 Quit 08/2015 Hypermobility syndrome Mild coronary artery disease Mixed hyperlipidemia 11/27/2008 Nontraumatic rupture of tendons of biceps (long head) R, 10/07 L OCD (obsessive compulsive disorder) Pneumonia, organism unspecified(486) 11/2001 bilateral: cleared Primary insomnia 03/02/2016 REVIEW OF SYSTEMS: GENERAL: No fever, chills, weight loss, or fatigue. PHYSICAL EXAMINATION: Blood pressure 104/74, pulse (!) 56, temperature 36.9 C (98.4 F), temperature source Temporal, resp. rate 14, height 182.9 cm (6'), weight 78.8 kg (173 lb 12.8 oz), SpO2 99%. GENERAL: WNL nutrition, no deformities, healthy appearing PROBLEM LIST REVIEW: Yes LABS: Results for orders placed or performed in visit on 02/07/24 UA DIP, URINE (POC) Result Value Ref Range GLUCOSE UA (POCT) Negative Negative mg/dL BILIRUBIN UA (POCT) Negative Negative KETONE UA (POCT) Negative Negative mg/dL SPECIFIC GRAVITY UA (POCT) 1.010 1.005 - 1.030 HEMOGLOBIN/BLOOD UA (POCT) Trace-intact (A) Negative PH UA (POCT) 6.0 4.5 - 8.0 PROTEIN UA (POCT) Negative Negative mg/dL UROBILINOGEN UA (POCT) 0.2 Normal E.U./dL NITRITE UA (POCT) Negative Negative LEUKOCYTES UA (POCT) Negative Negative COLOR UA (POCT) Yellow CLARITY UA (POCT) Clear PROCEDURES: PVR: 181 ml IMPRESSION/PLAN: 1. BPH with obstruction/lower urinary tract symptoms - ICD9: 600.01, 599.69, ICD10: N40.1, N13.8 (primary diagnosis) > TAMSULOSIN 0.4 MG CAPSULE > POST VOID RESIDUAL 2. Urinary urgency - ICD9: 788.63, ICD10: R39.15 > Resolved with increase water intake 1-2. Chronic Conditions: Stable and monitored with labs and follow-up visits 1. Medication: Renewed Testing Recommendations: Ordered today > 1 year Appt w/ BRORY Youngblood MT, PA-C with PSA prior RORY Burris MT, PA-C Verified name and date of . CC Post Void Residual HPI: Gaston Lainez is a 73 year old male. The patient is here now for an appointment with RORY Burris MT, PA-COV. Procedure: Explained procedure to patient and verbalizes understanding. Performed a PVR. Patient urinated and instructed to empty bladder as much as possible just prior to having PVR done using bladder ultrasound scanner. Results of scan: 181 mL The patient tolerated the procedure well. Plan: Appointment with Russell. documented in this encounter [facility] 02-07-2024 Telephone encounter Note Pt's notified of results. reports pt is already set up for PT. Tita Burger LPN [facility] 02-07-2024 Miscellaneous Notes Pt's notified of results. reports pt is already set up for PT. Tita Burger COVER MARKER LEFT MESSAGE FOR PATIENT TO CALL BACK /KLONGFELLOW COVER MARKER Xray shows degenerative disc disease in spine. . No acute changes. If pain continues, can consider physical therapy. documented in this encounter [facility] 02-07-2024 Telephone encounter Note LVM for patient spouse regarding concerns around aricept. Callback number provided. Mitch Peters RN [facility] 02-07-2024 Miscellaneous Notes LVM for patient spouse regarding concerns around aricept. Callback number provided. Mitch Peters RN documented in this encounter [facility] 02-07-2024 Telephone encounter Note LEFT MESSAGE FOR PATIENT TO CALL BACK /KLONGFELLOW COVER MARKER [facility] 02-07-2024 Telephone encounter Note Xray shows degenerative disc disease in spine. . No acute changes. If pain continues, can consider physical therapy. [facility] 02-07-2024 Instructions Russell Prasad PA-C - 02/07/2024 10:04 AM EDT > 1 year Appt w/ B. RORY Prasad MT, PA-C for annual follow-up and refills. documented in this encounter [facility] 02-07-2024 Note HNO ID: [id number] Author: LIS WELLS LPN Service: ? Author Type: LICENSED NURSE Type: Progress Notes Filed: 02/07/2024 19:38 Note Text: Verified name and date of . CC Post Void Residual HPI: Gaston Lainez is a 73 year old male. The patient is here now for an appointment with RORY Burris MT, PA-COV. Procedure: Explained procedure to patient and verbalizes understanding. Performed a PVR. Patient urinated and instructed to empty bladder as much as possible just prior to having PVR done using bladder ultrasound scanner. Results of scan: 181 mL The patient tolerated the procedure well. Plan: Appointment with Russell. [facility] 02-06-2024 Instructions Dorothy Gibbons LISW - 02/06/2024 1:14 PM EDT When there is a diagnosis of dementia, no matter the type, we encourage families to educate themselves, learn communication tips, and learn ways to adjust expectations over time. There are many resources available online. Three excellent resources are: The Alzheimer's Association (web site: alz.org) Help Line available 24 hours a day, 7 days per week: 647.840.7432. Call Help Line to learn of local options for support groups and to register. [facility] [place] (web site: Caregiver.org) [employer] CareJourney- a secure online solution for quality information, support, and resources for family caregivers. Contact: Alzheimers.gov Find Alzheimer disease and related dementias information, resources, research and more -Lewy Body Dementia Association for support and information. -www.lbda.org or 028-128-7916 (Caregiver Link Support Line) To be connected with a Living with Lewy group please contact the [facility] to reach their supportive services team who will assess your needs and connect you with the most appropriate group. Lewy Line phone number - [phone] Support email - -Discussed good habits for brain health including regular physical, mental and social activity, and healthy diet. Focus on the 5 pillars of brain health: Nutrition. Follow the MIND Diet, Mediterranean Diet, or Whole Food Plant-Based Diet. The MIND diet guidelines are listed in your visit 1 and visit 4 handouts. Physical activity. Aim for 150 minutes (2.5 hours) of aerobic exercise per week. Do something you enjoy that will get your heart rate up such as brisk walking, swimming, dancing, or riding a stationary bike. Regular physical activity can protect against Alzheimer's disease and other types of dementia. Stress management. Practice meditation or deep breathing daily for at least 5 minutes. A regular meditation practice may reduce brain atrophy, or shrinkage of the brain, that occurs with age. Restorative sleep. The goal is 7-8 hours of sleep per night. Follow sleep hygiene guidelines in your visit 5 handout if you are struggling with sleep. Mental activity and social activity. Do something daily to engage and challenge your brain. See examples in your visit 6 handout. Try the [employer] brain games at www.ED01 and www.Gecko[employer] Solutions. It is also important to stay socially active and to communicate with others. Strategies to compensate for everyday memory/executive functioning difficulties would be beneficial. Create a large, wall calendar in a central location to consistently track days. Place objects in the same spot every time to prevent misplacing. Use multimodal encoding and repetition to assist learning. Write things down, say them out loud several times, and revisit checklists often. If one problem solving approach seems not to work, try to find other ways to attempt the task. Break down large tasks into at least three smaller, more manageable steps. Utilize alarms and reminders for upcoming events/appointments. Take regular short breaks and then returning to a specific task as planned. Keep hallways free from clutter to prevent missteps or falls. Below are some tips on how to support your loved one when they are experiencing visual hallucinations. Offer reassurance and validation: You are safe, I'm here with you or I know this must be scary for you Use distraction: Suggest a favorite activity, use music, drawing, view a photo album Respond honestly: If asked do you see the hallucination respond by saying I know that you see something, but I don't see it Assess the situation/Modify the environment: Make changes if necessary, for example the mirror is causing a glare, remove the mirror; A lamp looks like a person, move to a different location if able. Hallucinations can be very real to the person experiencing them. Use a calm, gentle and reassuring approach with your loved one. Please feel free to call or schedule a follow up visit with any questions or concerns. MARGARITO Banuelos [facility] Office: [phone] [phone] documented in this encounter [facility] 02-06-2024 Note HNO ID: [id number] Author: DOROTHY GIBBONS LISW Service: ? Author Type: Cloth Tearer Type: Progress Notes Filed: 02/07/2024 12:12 Note Text: SOCIAL WORK NOTE Gaston Lainez 1950 [id number] [facility] [address] INFORMATION/REFERRAL: Referral Source: Shawanda Hale APRN-JUSTICE Pt information: Gaston Lainez is a 73 year old year old male referred to [facility] social work for the following reason(s): community services/resources Pt present for appointment: Yes Additional Participants: spouse, Marilynn Functional Status: With overall regard to patient functioning, Difficulty with IADL's, independant with ADL's. Living Situation AND Setting: pt and spouse reside in own home on [address]. Safety Assessment: Is the patient driving? YES Driving Concerns: not frequently Is the patient taking medications as prescribed? YES Is the patient left alone? YES Aware of 911: Yes Medical Alert System: No Are there concerns about safety in the home? No Has the patient gotten lost in familiar places or wandered? NO Are firearms present in th home? YES. If yes, how are they stored? Locked in a safe Has the patient experienced unsteadiness or sustained falls? NO Falls: negative EMPLOYMENT/FINANCIAL/INSURANCE: DPOA health: No DPOA finance: No Guardian: No Is patient a ?: No LTC Policy: No Agencies involved: PROBLEMS/NEEDS IDENTIFIED: Continue to assess/collaborate Education Information Long-term care plan DISCUSSION: Assessment visit with patient and spouse to address resources and future planning. Spouse contacted AWNING CRAFTSPERSON prior to visit to inquire what to expect as pt is easily upset by discussion of condition. Pt was forthcoming with concerns during assessment and asked insightful questions regarding the purpose of testing and what to expect. Discussed the importance of future planning. Pt/spouse denied interest in completing advance directives at this time; provided education for [place] hierarchy of surrogate decision makers. Discussed the importance of self-care and respite for spouse. Pt goes to work daily and rides with son on nikki routes, which he greatly enjoys. This also allows spouse time to engage in her own activities and receive respite. Spouse reported increased nighttime confusion and hallucinations in the evening since increasing Aricept dose to 10 mg. She did endorse increased daytime activity which she acknowledges may be contributing. The last few nights pt refused to come to bed because he did not recognize spouse. INTERVENTION/PLAN: -Discussed AWNING CRAFTSPERSON supportive role/availability as member of [facility] care team. -Supportive counseling offered to address caregiver stress, adjustment to caregiver role, caregiver guilt. Discussed the process of identifying a new normal since dementia diagnosis. -Reviewed supportive services offered through The Alzheimer's Association, [facility] [place] and Lewy Body Dementia Association. Discussed benefits of caregiver support groups. Provided information on local support groups currently offered virtually. Education provided on the importance of self-care and respite. -Provided information good habits for brain health including regular physical, mental and social activity, and healthy diet. -Discussed techniques for spouse to utilize when pt is experiencing hallucinations or delusions. IMPRESSION: Pleasant 73 year old year old patient. Pt and family appear able and motivated to follow up on recommendations as discussed. AWNING CRAFTSPERSON will remain available to address any questions/concerns. Contact information was provided. I spent a total of 40 minutes with the patient. MARGARITO Banuelos [facility] 02-06-2024 History of Present illness Narrative Images from the original note were not included. SOCIAL WORK NOTE Gaston Lainez 1950 [id number] [facility] [address] INFORMATION/REFERRAL: Referral Source: Shawanda Hale, WILFREDO-PROMOTIONS REPRESENTATIVE Pt information: Gaston Lainez is a 73 year old year old male referred to [facility] social work for the following reason(s): community services/resources Pt present for appointment: Yes Additional Participants: spouse, Marilynn Functional Status: With overall regard to patient functioning, Difficulty with IADL's, independant with ADL's. Living Situation & Setting: pt and spouse reside in own home on [address]. Safety Assessment: Is the patient driving? YES Driving Concerns: not frequently Is the patient taking medications as prescribed? YES Is the patient left alone? YES Aware of 911: Yes Medical Alert System: No Are there concerns about safety in the home? No Has the patient gotten lost in familiar places or wandered? NO Are firearms present in th home? YES. If yes, how are they stored? Locked in a safe Has the patient experienced unsteadiness or sustained falls? NO Falls: negative EMPLOYMENT/FINANCIAL/INSURANCE: DPOA health: No DPOA finance: No Guardian: No Is patient a ?: No LTC Policy: No Agencies involved: PROBLEMS/NEEDS IDENTIFIED: Continue to assess/collaborate Education Information Long-term care plan DISCUSSION: Assessment visit with patient and spouse to address resources and future planning. Spouse contacted AWNING CRAFTSPERSON prior to visit to inquire what to expect as pt is easily upset by discussion of condition. Pt was forthcoming with concerns during assessment and asked insightful questions regarding the purpose of testing and what to expect. Discussed the importance of future planning. Pt/spouse denied interest in completing advance directives at this time; provided education for [place] hierarchy of surrogate decision makers. Discussed the importance of self-care and respite for spouse. Pt goes to work daily and rides with son on nikki routes, which he greatly enjoys. This also allows spouse time to engage in her own activities and receive respite. Spouse reported increased nighttime confusion and hallucinations in the evening since increasing Aricept dose to 10 mg. She did endorse increased daytime activity which she acknowledges may be contributing. The last few nights pt refused to come to bed because he did not recognize spouse. INTERVENTION/PLAN: -Discussed AWNING CRAFTSPERSON supportive role/availability as member of [facility] care team. -Supportive counseling offered to address caregiver stress, adjustment to caregiver role, caregiver guilt. Discussed the process of identifying a new normal since dementia diagnosis. -Reviewed supportive services offered through The Alzheimer's Association, [facility] [place] and Lewy Body Dementia Association. Discussed benefits of caregiver support groups. Provided information on local support groups currently offered virtually. Education provided on the importance of self-care and respite. -Provided information good habits for brain health including regular physical, mental and social activity, and healthy diet. -Discussed techniques for spouse to utilize when pt is experiencing hallucinations or delusions. IMPRESSION: Pleasant 73 year old year old patient. Pt and family appear able and motivated to follow up on recommendations as discussed. AWNING CRAFTSPERSON will remain available to address any questions/concerns. Contact information was provided. I spent a total of 40 minutes with the patient. [facility] documented in this encounter [facility] 02-03-2024 Telephone encounter Note Returned call and spoke with spouse. Provided education on SW role and what to expect for scheduled assessment. Spouse requested pt not be informed of what's to come as he gets easily upset. Please feel free to call or schedule a follow up visit with any questions or concerns. MARGARITO Banuelos edson [facility] Office: [phone] [phone] [facility] Work Phone: 02-03-2024 Miscellaneous Notes Returned call and spoke with spouse. Provided education on SW role and what to expect for scheduled assessment. Spouse requested pt not be informed of what's to come as he gets easily upset. Please feel free to call or schedule a follow up visit with any questions or concerns. MARGARITO Banuelos [facility] Office: [phone] [phone] 02/03/24 Patient's spouse Marilynn reached the office to discuss strategies to help the patient get situated before his appointment with 02/06/24 to help ease his anxiety. [phone] -[place] documented in this encounter [facility] 02-03-2024 Telephone encounter Note 02/03/24 Patient's spouse Marilynn reached the office to discuss strategies to help the patient get situated before his appointment with 02/06/24 to help ease his anxiety. [phone] -IN [facility] 02-01-2024 Telephone encounter Note Patient has been identified by name and date of : Yes Spouse phones for refill(s): Requested Prescriptions Pending Prescriptions Disp Refills Tadalafil (CIALIS) 10 mg tablet 30 tablet 2 Si-2 tabs daily as needed Date of last office visit in primary care: 01/31/2024 Date of next office visit in primary care: 05/03/2024 Please advise. Thank you. Neeta Sotelo. [facility] 02-01-2024 Miscellaneous Notes Patient has been identified by name and date of : Yes Spouse phones for refill(s): Requested Prescriptions Pending Prescriptions Disp Refills Tadalafil (CIALIS) 10 mg tablet 30 tablet 2 Si-2 tabs daily as needed Date of last office visit in primary care: 01/31/2024 Date of next office visit in primary care: 05/03/2024 Please advise. Thank you. Neeta Sotelo. documented in this encounter [facility] 01-31-2024 History of Present illness Narrative Radiology Service Progress Note PATIENT NAME: Gaston Lainez DATE OF SERVICE: January 31, 2024 TIME: 4:36 PM PATIENT IDENTITY VERIFICATION COMPLETED USING TWO (2) IDENTIFIERS: Name and Date of confirmed by patient verbally. FALL SCREENING: Has the patient had 2 falls in the last year or 1 fall with injury or currently using an Ambulatory Assistive Device (Walker, Cane, Wheelchair, Crutches, etc.)? No PATIENT GENDER DATA: Male PATIENT RELEVANT IMPLANT DATA REVIEWED: Not Applicable PATIENT PRESENTS WITH AN IMPLANTABLE OR ATTACHED WOMENS VOLLEYBALL COACH: No RADIOLOGY DEPARTMENT: General X-ray: Exam(s) Completed: Spine X-Ray(s): Thoracic PERIPHERAL IV DATA: Not applicable SIGNED BY: HANS Wu) January 31, 2024 4:36 PM documented in this encounter [facility] 01-31-2024 Note HNO ID: [id number] Author: CHANDLER AGGARWAL RT(Laurie) Service: Radiology Author Type: Technologist Type: Progress Notes Filed: 01/31/2024 16:48 Note Text: Radiology Service Progress Note PATIENT NAME: Gaston Lainez DATE OF SERVICE: January 31, 2024 TIME: 4:36 PM PATIENT IDENTITY VERIFICATION COMPLETED USING TWO (2) IDENTIFIERS: Name and Date of confirmed by patient verbally. FALL SCREENING: Has the patient had 2 falls in the last year or 1 fall with injury or currently using an Ambulatory Assistive Device (Walker, Cane, Wheelchair, Crutches, etc.)? No PATIENT GENDER DATA: Male PATIENT RELEVANT IMPLANT DATA REVIEWED: Not Applicable PATIENT PRESENTS WITH AN IMPLANTABLE OR ATTACHED WOMENS VOLLEYBALL COACH: No RADIOLOGY DEPARTMENT: General X-ray: Exam(s) Completed: Spine X-Ray(s): Thoracic PERIPHERAL IV DATA: Not applicable SIGNED BY: Chandler Aggarwal RT(R) January 31, 2024 4:36 PM [facility] 01-31-2024 History of Present illness Narrative Patient presents with: ER F/U HPI: Patient presents today for office visit for ER follow up. Here today with . Seen in [facility] ER on 01/28/24 for shortness of breath and back pain. States he woke up from sleep diaphoretic and short of breath. EKG showed normal sinus rhythm. Delta troponin negative. Chest x-ray showed no acute findings. Received duoneb. Discharged with Rx for prednisone and albuterol inhaler. Feels much better. No shortness of breath. Has chronic drainage. No anterior chest pain No edema. Had labs and xray which were ok. states she feels this incident was more anxiety related as the patient woke up and didn't know where she was and panicked. She feels he might have done better if he had not been as anxious. Has some pain across his upper back. Worse when standing. Has been there for months. No trauma. No numbness or tingling. Worse with movement. Has only had one dose of prednisone so far for his lungs but discussed it might help. MEDICATIONS: Current Outpatient Medications Medication Sig predniSONE (DELTASONE) 20 mg tablet Take 60 mg by mouth once daily. donepezil (ARICEPT) 10 mg tablet Take 1 tablet by mouth daily with breakfast. OLANZapine (ZYPREXA) 2.5 mg tablet use 1 to 2 tablets at bedtime busPIRone (BUSPAR) 15 mg tablet TAKE 1 TABLET BY MOUTH TWICE A DAY fluticasone-salmeterol (WIXELA INHUB) 250-50 mcg/dose inhaler Inhale 1 Puff as instructed two times a day. tamsulosin (FLOMAX) 0.4 mg Take 1 capsule by mouth daily at bedtime. albuterol HFA (VENTOLIN HFA) 90 mcg/actuation inhaler Inhale 2 Puffs as instructed every 4 hours as needed for wheezing/shortness of breath. metoprolol succinate ER (TOPROL XL) 25 mg 24 hr tablet Take 1 tablet by mouth once daily. OTC PRODUCT Take 1 tablet by mouth once daily. PREVAGEN REGULAR STRENGTH Tadalafil (CIALIS) 10 mg tablet 1-2 tabs daily as needed atorvastatin (LIPITOR) 40 mg tablet Take 1 tablet by mouth once daily. MULTIVITAMIN ORAL Take by mouth once daily. docusate sodium (COLACE) 100 mg capsule Take 1 capsule by mouth twice daily. polyethylene glycol 3350 (MIRALAX) 17 gram/dose powder 17g (1 scoop) with 8 oz daily as needed for constipation No current facility-administered medications for this visit. ALLERGIES: ALLERGIES No Known Allergies PAST MEDICAL HISTORY Diagnosis Date Abnormal stress echocardiogram 01/14/2021 01/21/[address] Barragan: right dominant. LMT min luminal, LAD mild diffuse, LCx mild luminal with large caliber nondominant vessel extending into a single large obtuse marginal branch, proximal vessel is mildly calcified +mild luminal irreg, RCA 40% Large-caliber dominant vessel: moderate calcification from the proximal to mid vessel, mild diffuse ectatic disease proximal.The ostium of the Anxiety state, unspecified 10/24/2007 Benign paroxysmal positional vertigo one remote episode Bunion Chronic obstructive asthma, unspecified 10/24/2007 Depression likely bipolar disorder Depressive disorder, not elsewhere classified 10/24/2007 Generalized anxiety disorder 10/24/2007 History of marijuana use 03/02/2016 Quit 08/2015 Hypermobility syndrome Mild coronary artery disease Mixed hyperlipidemia 11/27/2008 Nontraumatic rupture of tendons of biceps (long head) R, 10/07 L OCD (obsessive compulsive disorder) Pneumonia, organism unspecified(486) 11/2001 bilateral: cleared Primary insomnia 03/02/2016 PAST SURGICAL HISTORY Procedure Laterality Date COLONOSCOPY FLX DX W/COLLJ SPEC WHEN PFRMD 09/21/2006 repeat due 2017 COLONOSCOPY FLX DX W/COLLJ SPEC WHEN PFRMD 04/22/2020 Colonoscopy COLSC FLX W/RMVL OF TUMOR POLYP LESION SNARE TQ 04/19/2017 2 adenomatous polyps - ESOPHAGOGASTRODUODENOSCOPY TRANSORAL DIAGNOSTIC 07/23/2019 EGD EXCISION OF BENIGN LESION GREATER THAN 1.25 CM 03/29/2000 tongue and lip lesions: fibroma; nose: sebaceous hyperplasia PAST SURGICAL HISTORY OF repair flexor tendon left thumb PAST SURGICAL HISTORY OF Left 09/03/2019 Dr. medina [facility]: left CTR and tenosynovectomy at wrist level PAST SURGICAL HISTORY OF Left 04/29/2021 Left median nerve release at the elbow and forearm, Dontae Medina MD, [facility] ROTATOR CUFF REPAIR 2008 left ROTATOR CUFF REPAIR 04/22/2016 right VASECTOMY UNI/BI SPX W/POSTOP SEMEN EXAMS FAMILY HISTORY Problem Relation Age of Onset Heart Mother age 66, CA, SLE other (lupus) Mother diagnosed age 49 Heart Father age 84, CHF other (G6PD) Sister G6PD Diabetes Brother 1/2 brother Hypertension Brother 1/2 brother Colon Cancer Brother rectal cancer? 1/2 brother Social History Tobacco Use Smoking status: Former Packs/day: 0.50 Years: 9.00 Additional pack years: 0.00 Total pack years: 4.50 Types: Cigarettes Quit date: 10/31/1976 Years since quittin.2 Smokeless tobacco: Never Vaping Use Vaping Use: Never used Substance Use Topics Alcohol use: Yes Drug use: Not Currently Comment: marijuana use, has used inhalants Reviewed current medications, allergies, past medical history, surgical history, family history and social history today. REVIEW OF SYSTEMS All other reviewed and negative other than HPI. VITALS: BP 120/78 Pulse 69 Ht 180.3 cm (5' 11) Wt 78.9 kg (174 lb) SpO2 98% BMI 24.27 kg/m Last 4 Encounter Wt Readings: Date: Wt: 01/27/2024 78.8 kg (173 lb 12.8 oz) 12/27/2023 78 kg (172 lb) 12/19/2023 78.5 kg (173 lb) 11/01/2023 76.1 kg (167 lb 12.8 oz) PHYSICAL EXAMINATION: General appearance: Well appearing, alert, in no acute distress, well-hydrated, well nourished. Skin: Skin color, texture, turgor normal, no suspicious rashes or lesions Head: Normocephalic, no masses, lesions, tenderness or abnormalities Back: area of tenderness in thoracic spine. Lungs: Lungs clear to auscultation. Few scattered end exp wheezes. Heart: RRR without murmur, gallop, or rubs. No ectopy Abdomen: Normal abdominal exam, Abdomen soft, non-tender. Bowel sounds normal. No masses, organomegaly Extremities: No deformities, edema, skin discoloration, clubbing or cyanosis. Good capillary refill. Musculoskeletal: No joint swelling, deformity, or tenderness Peripheral pulses: Normal Neuro: Gait normal. Reflexes normal and symmetric. Sensation grossly intact. ASSESSMENT/PLAN: 1. Asthma with COPD with exacerbation (HCC) (HCC) - ICD9: 493.22, ICD10: J44.1, J45.901 (primary diagnosis) - continue meds. Call if symptoms worsen at all or if not better in one to two weeks 2. Thoracic spine pain - ICD9: 724.1, ICD10: M54.6 - continue steroids. - XR THORACIC GENERAL 3V AP/LAT/SWIMMERS - CONSULT TO PHYSICAL THERAPY Lori Chauhan MD documented in this encounter [facility] 01-31-2024 Note HNO ID: [id number] Author: LORI CHAUHAN MD Service: ? Author Type: Physician Type: Progress Notes Filed: 01/31/2024 16:05 Note Text: Patient presents with: ER F/U HPI: Patient presents today for office visit for ER follow up. Here today with . Seen in [facility] ER on 01/28/24 for shortness of breath and back pain. States he woke up from sleep diaphoretic and short of breath. EKG showed normal sinus rhythm. Delta troponin negative. Chest x-ray showed no acute findings. Received duoneb. Discharged with Rx for prednisone and albuterol inhaler. Feels much better. No shortness of breath. Has chronic drainage. No anterior chest pain No edema. Had labs and xray which were ok. states she feels this incident was more anxiety related as the patient woke up and didn't know where she was and panicked. She feels he might have done better if he had not been as anxious. Has some pain across his upper back. Worse when standing. Has been there for months. No trauma. No numbness or tingling. Worse with movement. Has only had one dose of prednisone so far for his lungs but discussed it might help. MEDICATIONS: Current Outpatient Medications Medication Sig predniSONE (DELTASONE) 20 mg tablet Take 60 mg by mouth once daily. donepezil (ARICEPT) 10 mg tablet Take 1 tablet by mouth daily with breakfast. OLANZapine (ZYPREXA) 2.5 mg tablet use 1 to 2 tablets at bedtime busPIRone (BUSPAR) 15 mg tablet TAKE 1 TABLET BY MOUTH TWICE A DAY fluticasone-salmeterol (WIXELA INHUB) 250-50 mcg/dose inhaler Inhale 1 Puff as instructed two times a day. tamsulosin (FLOMAX) 0.4 mg Take 1 capsule by mouth daily at bedtime. albuterol HFA (VENTOLIN HFA) 90 mcg/actuation inhaler Inhale 2 Puffs as instructed every 4 hours as needed for wheezing/shortness of breath. metoprolol succinate ER (TOPROL XL) 25 mg 24 hr tablet Take 1 tablet by mouth once daily. OTC PRODUCT Take 1 tablet by mouth once daily. PREVAGEN REGULAR STRENGTH Tadalafil (CIALIS) 10 mg tablet 1-2 tabs daily as needed atorvastatin (LIPITOR) 40 mg tablet Take 1 tablet by mouth once daily. MULTIVITAMIN ORAL Take by mouth once daily. docusate sodium (COLACE) 100 mg capsule Take 1 capsule by mouth twice daily. polyethylene glycol 3350 (MIRALAX) 17 gram/dose powder 17g (1 scoop) with 8 oz daily as needed for constipation No current facility-administered medications for this visit. ALLERGIES: ALLERGIES No Known Allergies PAST MEDICAL HISTORY Diagnosis Date Abnormal stress echocardiogram 01/14/2021 01/21/[address] Barragan: right dominant. LMT min luminal, LAD mild diffuse, LCx mild luminal with large caliber nondominant vessel extending into a single large obtuse marginal branch, proximal vessel is mildly calcified +mild luminal irreg, RCA 40% Large-caliber dominant vessel: moderate calcification from the proximal to mid vessel, mild diffuse ectatic disease proximal.The ostium of the Anxiety state, unspecified 10/24/2007 Benign paroxysmal positional vertigo one remote episode Bunion Chronic obstructive asthma, unspecified 10/24/2007 Depression likely bipolar disorder Depressive disorder, not elsewhere classified 10/24/2007 Generalized anxiety disorder 10/24/2007 History of marijuana use 03/02/2016 Quit 08/2015 Hypermobility syndrome Mild coronary artery disease Mixed hyperlipidemia 11/27/2008 Nontraumatic rupture of tendons of biceps (long head) 12/00 R, 2/09 L OCD (obsessive compulsive disorder) Pneumonia, organism unspecified(486) 11/2001 bilateral: cleared Primary insomnia 03/02/2016 PAST SURGICAL HISTORY Procedure Laterality Date COLONOSCOPY FLX DX W/COLLJ SPEC WHEN PFRMD 09/21/2006 repeat due 2017 COLONOSCOPY FLX DX W/COLLJ SPEC WHEN PFRMD 04/22/2020 Colonoscopy COLSC FLX W/RMVL OF TUMOR POLYP LESION SNARE TQ 04/19/2017 2 adenomatous polyps - ESOPHAGOGASTRODUODENOSCOPY TRANSORAL DIAGNOSTIC 07/23/2019 EGD EXCISION OF BENIGN LESION GREATER THAN 1.25 CM 03/29/2000 tongue and lip lesions: fibroma; nose: sebaceous hyperplasia PAST SURGICAL HISTORY OF repair flexor tendon left thumb PAST SURGICAL HISTORY OF Left 09/03/2019 Dr. medina [facility]: left CTR and tenosynovectomy at wrist level PAST SURGICAL HISTORY OF Left 04/29/2021 Left median nerve release at the elbow and forearm, Dontae Medina MD, [facility] ROTATOR CUFF REPAIR 2008 left ROTATOR CUFF REPAIR 04/22/2016 right VASECTOMY UNI/BI SPX W/POSTOP SEMEN EXAMS FAMILY HISTORY Problem Relation Age of Onset Heart Mother age 66, CA, SLE other (lupus) Mother diagnosed age 49 Heart Father age 84, CHF other (G6PD) Sister G6PD Diabetes Brother 1/2 brother Hypertension Brother 1/2 brother Colon Cancer Brother rectal cancer? 1/2 brother Social History Tobacco Use Smoking status: Former Packs/day: 0.50 Years: 9.00 Additional pack years: 0.00 Total pack years: (more content not included)... [facility] 01-27-2024 Instructions Shawanda Hale APRN.PROMOTIONS REPRESENTATIVE - 01/27/2024 11:37 AM EDT Thank you for meeting with me today. Here is the plan we discussed. Increase Aricept to 10 mg once daily with breakfast We will consider adding in Namenda (memantine) for preservation of function in those with dementia at next follow up visit Cognitively healthy lifestyle. See the section below Ways to keep your brain healthy A heart healthy diet is a brain healthy diet. The MIND Diet is an evidence based diet proven to slow and protect against cognitive decline. See the section MIND Diet Guidelines below for more information. Follow up 02/24/24 at 12:45 pm to review response and tolerance to increased Aricept 10 mg dose, consider addition of Namenda (memantine), and then plan for transitioning treatment maintenance locally to [facility]. If you need to cancel/reschedule appointments please call [phone]. If you need to reach our office for any reason prior to your next visit, please contact us through [employer] or call [phone]. Ulysses Hale RN-MSN, [facility] Psychiatric Mental Health Nurse Practitioner [facility] Ways to keep your brain healthy: Follow up regularly with your primary care and other providers to ensure your vascular risk factors (blood pressure, blood sugar, sleep apnea, and cholesterol levels, etc.) are well controlled. Eat a healthy diet, foods that are good for your heart are also good for your brain. It is also important to drink plenty of water to stay hydrated. Exercise - as little as 20 minutes of exercise per day (150 minutes per week) - has been shown to have a positive effect on memory and cognitive function. Maintain an active social life. Get 7-8 hours of sleep per night. If you nap during the day, try to keep napping to a regular schedule. Maintain a predictable and regular daily routine. Try learning new hobbies, games, or skills. Keep your brain active with reading, puzzles, and games. Please refer to healthybrains.org website. It provides evidence based education on diet, exercise and activities that have benefit for memory. MIND Diet guidelines: - Eat 1/2 cup berries, especially blueberries and strawberries, at least 2x per week. - Eat 1 handful (1/4 cup) nuts at least 5x per week. Include walnuts. - Eat 100% whole grains 3x per day (brown rice, wild rice, black rice, quinoa, barley, bulgur, farro, rolled oats, steel cut oats, amaranth, spelt, millet, wheat berries). - Eat 1-2 cups of leafy greens at least 6x per week (spinach, arugula, kale, mustard greens, carolyne greens, dandelion greens, shanta lettuce). - Eat at least 1 other vegetable (other than dark leafy greens) every day. - Eat 1/2 cup beans or lentils at least 3x per week. - Eat fish at least once per week. Choose low mercury fish: salmon, sardines, anchovies, armenta, halibut, scallops. Avoid fried fish and fish high in mercury (swordfish, Bulgarian sea guthrie, orange roughy, ahi tuna, albacore (white) tuna). Choose light/skipjack tuna instead of white tuna, and limit to 2 servings/week because it has some mercury. - Eat chicken at least 2x per week. - Extra virgin olive oil is the primary oil used at home for cooking and on salads. - Limit margarine and butter to less than 1 Tbsp per day. - Limit red meat and processed meats to less than 4x per week. Red meat: beef, pork, feliz, venison, veal, bison. Processed meats: barber, hotdogs, salami,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 my direction and in my presence. I have reviewed the chart and discharge instructions (if applicable) and agree that the record reflects my personal performance and is accurate and complete. Alexus Naki APRN.JUSTICE October 25, 2023 4:25 PM CC: Follow up after increase in Seroquel and discontinuation of Zoloft. HPI: Treatment plan from last visit on 09/20/2023: 1. Discussed taking Seroquel more consistently during the day as that has been helping with his anxiety symptoms. 2. Continue Seroquel 50 mg at bedtime. 3. Discussed reducing caffeine intake to just 1 to 2 cups instead of 3 to 4 cups. Use Green tea in the afternoon if needed versus black tea or coffee. 4. Increase Boost supplementation to 2 times daily as patient does not eat adequately. 5. Discontinue Zoloft due to lack of efficacy. Gaston's , Marilynn, reports that he has stopped taking his Seroquel during the day because it makes him more scared. He is still experiencing paranoia. He stopped taking Seroquel during the day 2-3 weeks ago. He still takes the Seroquel at night. He is waking up during the night. Marilynn says his anxiety is worse. Gaston says he's going to the gym at least three times per week. Discussed how Gaston took Buspar at a very low dose with no side effects. His daughter also experienced efficacy with Buspar. Gaston and Marilynn report that he's eating better. Gaston says he gained 4 pounds. Gaston is only drinking 1 Boost per day because his eating has improved. Gaston voices having a better appetite. He acknowledges being focused on his weight. He is also focused on eating, worried about eating too much. Gaston will drink one glass of wine once per day, 4-6 oz. Marilynn reports that they have switched to decaffeinated coffee at home. Risks and benefits of the medication, including any black box warnings, were discussed with the patient. Interval Progress: Same PATIENT DATA: Generalized Anxiety Disorder Scale (MARTELL-7) MARTELL - 7 SCORES 04/23/2021 09/20/2023 MARTELL-7 Score 19 21 (0-4) minimal anxiety, (5-9) mild anxiety, (10-14) moderate anxiety, (15-21) severe anxiety Patient Health Questionnaire (PHQ-9) PHQ-9 04/23/2021 05/04/2023 09/20/2023 Score 1 14 21 (0-4) minimal depression, (5-9) mild depression, (10-14) moderate depression, (15-19) moderately severe depression, (20-27) severe depression PROMIS Global Health PROMIS Global Health - (T-Scores - the mean of general population = 50. Five points is a clinically meaningful difference.) 03/14/2017 01/03/2023 05/04/2023 Physical T-Score 39.8 47.7 44.9 Mental T-Score 43.5 62.5 - PAST MEDICAL HISTORY Diagnosis Date Abnormal stress echocardiogram 01/14/2021 01/21/[address] Barragan: right dominant. LMT min luminal, LAD mild diffuse, LCx mild luminal with large caliber nondominant vessel extending into a single large obtuse marginal branch, proximal vessel is mildly calcified +mild luminal irreg, RCA 40% Large-caliber dominant vessel: moderate calcification from the proximal to mid vessel, mild diffuse ectatic disease proximal.The ostium of the Anxiety state, unspecified 10/24/2007 Benign paroxysmal positional vertigo one remote episode Bunion Chronic obstructive asthma, unspecified 10/24/2007 Depression likely bipolar disorder Depressive disorder, not elsewhere classified 10/24/2007 Generalized anxiety disorder 10/24/2007 History of marijuana use 03/02/2016 Quit 08/2015 Hypermobility syndrome Mild coronary artery disease Mixed hyperlipidemia 11/27/2008 Nontraumatic rupture of tendons of biceps (long head) R, 10/07 L OCD (obsessive compulsive disorder) Pneumonia, organism unspecified(486) 11/2001 bilateral: cleared Primary insomnia 03/02/2016 PAST SURGICAL HISTORY Procedure Laterality Date COLONOSCOPY FLX DX W/COLLJ SPEC WHEN PFRMD 09/21/2006 repeat due 2016 COLONOSCOPY FLX DX W/COLLJ SPEC WHEN PFRMD 04/22/2020 Colonoscopy COLSC FLX W/RMVL OF TUMOR POLYP LESION SNARE TQ 04/19/2017 2 adenomatous polyps - ESOPHAGOGASTRODUODENOSCOPY TRANSORAL DIAGNOSTIC 07/23/2019 EGD EXCISION OF BENIGN LESION GREATER THAN 1.25 CM 03/29/2000 tongue and lip lesions: fibroma; nose: sebaceous hyperplasia PAST SURGICAL HISTORY OF repair flexor tendon left thumb PAST SURGICAL HISTORY OF Left 09/03/2019 Dr. medina [facility]: left CTR and tenosynovectomy at wrist level PAST SURGICAL HISTORY OF Left 04/29/2021 Left median nerve release at the elbow and forearm, Dontae Medina MD, [facility] ROTATOR CUFF REPAIR 2008 left ROTATOR CUFF REPAIR 04/22/2016 right VASECTOMY UNI/BI SPX W/POSTOP SEMEN EXAMS Current Outpatient Medications Medication Sig Dispense Refill QUEtiapine (SEROQUEL) 25 mg tablet TAKE 1 TABLET BY MOUTH THREE TIMES A DAY. TAKE AT 6 AM, 12 PM, AND 4 PM. 270 tablet 1 QUEtiapine (SEROQUEL) 50 mg tablet Take 1 tablet by mouth daily at bedtime. 30 tablet 1 OTC PRODUCT Take 1 tablet by mouth once daily. PREVAGEN REGULAR STRENGTH Tadalafil (CIALIS) 10 mg tablet 1-2 tabs daily as needed 30 tablet 2 atorvastatin (LIPITOR) 40 mg tablet Take 1 tablet by mouth once daily. 90 tablet 3 tamsulosin (FLOMAX) 0.4 mg Take 1 capsule by mouth daily at bedtime. 30 capsule 5 MULTIVITAMIN ORAL Take by mouth once daily. fluticasone-salmeterol (ADVAIR DISKUS) 250-50 mcg/dose inhaler INHALE 1 PUFF INSTRUCTED TWICE DAILY NEEDED (ASTHMA). 1 Each 5 docusate sodium (COLACE) 100 mg capsule Take 1 capsule by mouth twice daily. 30 capsule 1 metoprolol succinate ER (TOPROL XL) 25 mg 24 hr tablet TAKE 1 TABLET BY MOUTH EVERY DAY 90 tablet 3 polyethylene glycol 3350 (MIRALAX) 17 gram/dose powder 17g (1 scoop) with 8 oz daily as needed for constipation 225 g 5 albuterol HFA (VENTOLIN HFA) 90 mcg/actuation inhaler Inhale 2 Puffs as instructed every 4 hours as needed for wheezing/shortness of breath. 1 Each 5 No current facility-administered medications for this visit. ROS: No significant changes in health reported PFSH: See HPI VITAL SIGNS: 10/25/23 0826 BP: 118/56 Pulse: 64 Weight: 75.9 kg (167 lb 6.4 oz) MENTAL STATUS EXAM: CONSTITUTIONAL: Well groomed, Appropriately dressed, Casually dressed ORIENTATION: Person, Place, Time and Situation MEMORY: Recent intact CONCENTRATION: Normal MOOD: euthymic AFFECT: Full and appropriate to topic SPEECH : Clear & distinct LANGUAGE : Normal ASSOCIATIONS: Intact THOUGHT PROCESS : Logical, Coherent, and Rational PROGRESSION : There was no evidence of disturbance in thought perception or progression. FUND OF KNOWLEDGE : Appropriate and Adequate SUICIDE: None HOMICIDE: None DATA REVIEWED: Psychiatric scales and Electronic medical record DIAGNOSIS: PRIMARY: Mood disorder - Bipolar 1 vs Bipolar 2 disorder. Patient not a good historian as most manic episodes seemed to have occurred in his 20s and 30s. History of impulsive behavior, hypersexuality, increased energy, and grandiosity at that time. Significant alcohol and drug use. History of experiencing hallucinations. Hallucinations and Delusions worsened recently. SECONDARY: OCD - obsessive thoughts and actions. Other : Dementia - worsening hallucinations and paranoid thoughts Other- history of severe alcohol use. GAF: -50-41 Serious symptoms or any serious impairment in social, occupational or school functioning. TREATMENT PLAN: 1. Start Buspar 10 mg in morning and afternoon to address anxiety symptoms 2. Stop taking Seroquel due to reported side effects. 3. Start taking Zyprexa 2.5 mg at night for one week to address mood and help with sleep. Consider increasing after one week if medication is tolerated. to contact the provider with an update in 1 week. 4. Follow up visit on November 21 at 930 AM MEDICATION CHANGES: 1. Start Buspar 10 mg in morning and afternoon to address anxiety symptoms 2. Stop taking Seroquel 3. Start taking Zyprexa 2.5 mg at night for one week to address mood and help with sleep. Consider increasing after one week if medication is tolerated. Patient and deny any involuntary movement related side effects. Follow Up: November 21 at 930 AM I spent a total of 35 minutes on the date of the service which included preparing to see the patient, [id number] patient care, completing clinical documentation, obtaining and/or reviewing separately obtained history, performing a medically appropriate examination, counseling and educating the patient/family/caregiver, ordering medications, tests, or procedures, communicating with other HCPs (not separately reported), independently interpreting results (not separately reported), and communicating results to the patient/family/caregiver. ADD ON PSYCHOTHERAPY CODE : No SIGNATURE: Alexus Naik APRN.CNP PATIENT NAME: Gaston Lainez DATE: October 25, 2023 TIME: 8:39 AM documented in this encounter [facility] 10-06-2023 Miscellaneous Notes Pt called and is notified of providers results and instructions. Pt voices understanding. Geovany Headley RN Let him know his labs are negative. No blood in urine. Keep follow up with urology documented in this encounter [facility] 10-05-2023 History of Present illness Narrative Patient presents with: Follow Up HPI: Patient presents today for office visit for [facility] follow up. Seen in [facility] on 10/03/23 with complaints of burning with urination. Has had this issues for the last couple years. Has been increasingly getting worse. Hx of BPH. Continues on Flomax which has helped some. Has frequent nocturia. Getting up about 4-5 x a night. Denies gross hematuria. Does not always feel like he is emptying his bladder. No fever or chills. Has been drinking a large amount of coffee, discussed switching to decaff No flank pain. UCX neg. Francisco had been following his psa which is minimally elevated. See urgent care notes: with burning with urination. He has had this burning for the last several years. He has to get up at night several times a night.last night he had burning with urination. His family MD gave him flomax for enlarged prostate. He has not seen a urologist for the symptoms yet. He has not had a fever and no abd pain no back pain and no blood in the urine. He states the flomax helped when he started it but not as much now Component Latest Ref Rng & Units 10/03/2023 GLUCOSE UA (POCT) Negative mg/dL Negative BILIRUBIN UA (POCT) Negative Negative KETONE UA (POCT) Negative mg/dL Negative SPECIFIC GRAVITY UA (POCT) 1.005 - 1.030 1.010 HEMOGLOBIN/BLOOD UA (POCT) Negative Trace-intact (A) PH UA (POCT) 4.5 - 8.0 5.5 PROTEIN UA (POCT) Negative mg/dL Negative UROBILINOGEN UA (POCT) Normal E.U./dL 0.2 NITRITE UA (POCT) Negative Negative LEUKOCYTES UA (POCT) Negative Negative COLOR UA (POCT) Yellow CLARITY UA (POCT) Clear Culture <10,000 CFU/ml Normal urogenital con MEDICATIONS: Current Outpatient Medications Medication Sig QUEtiapine (SEROQUEL) 25 mg tablet Take 1 tablet by mouth three times a day. Take at 6 am, 12 pm, and 4 pm. QUEtiapine (SEROQUEL) 50 mg tablet Take 1 tablet by mouth daily at bedtime. OTC PRODUCT Take 1 tablet by mouth once daily. PREVAGEN REGULAR STRENGTH Tadalafil (CIALIS) 10 mg tablet 1-2 tabs daily as needed atorvastatin (LIPITOR) 40 mg tablet Take 1 tablet by mouth once daily. tamsulosin (FLOMAX) 0.4 mg Take 1 capsule by mouth daily at bedtime. MULTIVITAMIN ORAL Take by mouth once daily. fluticasone-salmeterol (ADVAIR DISKUS) 250-50 mcg/dose inhaler INHALE 1 PUFF INSTRUCTED TWICE DAILY NEEDED (ASTHMA). docusate sodium (COLACE) 100 mg capsule Take 1 capsule by mouth twice daily. metoprolol succinate ER (TOPROL XL) 25 mg 24 hr tablet TAKE 1 TABLET BY MOUTH EVERY DAY polyethylene glycol 3350 (MIRALAX) 17 gram/dose powder 17g (1 scoop) with 8 oz daily as needed for constipation albuterol HFA (VENTOLIN HFA) 90 mcg/actuation inhaler Inhale 2 Puffs as instructed every 4 hours as needed for wheezing/shortness of breath. No current facility-administered medications for this visit. ALLERGIES: ALLERGIES No Known Allergies PAST MEDICAL HISTORY Diagnosis Date Abnormal stress echocardiogram 01/14/2021 01/21/[address] Barragan: right dominant. LMT min luminal, LAD mild diffuse, LCx mild luminal with large caliber nondominant vessel extending into a single large obtuse marginal branch, proximal vessel is mildly calcified +mild luminal irreg, RCA 40% Large-caliber dominant vessel: moderate calcification from the proximal to mid vessel, mild diffuse ectatic disease proximal.The ostium of the Anxiety state, unspecified 10/24/2007 Benign paroxysmal positional vertigo one remote episode Bunion Chronic obstructive asthma, unspecified 10/24/2007 Depression likely bipolar disorder Depressive disorder, not elsewhere classified 10/24/2007 Generalized anxiety disorder 10/24/2007 History of marijuana use 03/02/2016 Quit 08/2015 Hypermobility syndrome Mild coronary artery disease Mixed hyperlipidemia 11/27/2008 Nontraumatic rupture of tendons of biceps (long head) R, 10/07 L OCD (obsessive compulsive disorder) Pneumonia, organism unspecified(486) 11/2001 bilateral: cleared Primary insomnia 03/02/2016 PAST SURGICAL HISTORY Procedure Laterality Date COLONOSCOPY FLX DX W/COLLJ SPEC WHEN PFRMD 09/21/2006 repeat due 2016 COLONOSCOPY FLX DX W/COLLJ SPEC WHEN PFRMD 04/22/2020 Colonoscopy COLSC FLX W/RMVL OF TUMOR POLYP LESION SNARE TQ 04/19/2017 2 adenomatous polyps - ESOPHAGOGASTRODUODENOSCOPY TRANSORAL DIAGNOSTIC 07/23/2019 EGD EXCISION OF BENIGN LESION GREATER THAN 1.25 CM 03/29/2000 tongue and lip lesions: fibroma; nose: sebaceous hyperplasia PAST SURGICAL HISTORY OF repair flexor tendon left thumb PAST SURGICAL HISTORY OF Left 09/03/2019 Dr. medina [facility]: left CTR and tenosynovectomy at wrist level PAST SURGICAL HISTORY OF Left 04/29/2021 Left median nerve release at the elbow and forearm, Dontae Medina MD, [facility] ROTATOR CUFF REPAIR 2009 left ROTATOR CUFF REPAIR 04/22/2016 right VASECTOMY UNI/BI SPX W/POSTOP SEMEN EXAMS FAMILY HISTORY Problem Relation Age of Onset Heart Mother age 66, CA, SLE other (lupus) Mother diagnosed age 49 Heart Father age 84, CHF other (G6PD) Sister G6PD Diabetes Brother 1/2 brother Hypertension Brother 1/2 brother Colon Cancer Brother rectal cancer? 1/2 brother Social History Tobacco Use Smoking status: Former Packs/day: 0.50 Years: 9.00 Additional pack years: 0.00 Total pack years: 4.50 Types: Cigarettes Quit date: 10/31/1976 Years since quittin.9 Smokeless tobacco: Never Vaping Use Vaping Use: Never used Substance Use Topics Alcohol use: Not Currently Alcohol/week: 8.0 standard drinks of alcohol Types: 7 Glasses of Wine (5oz), 1 Cans of Beer (12oz) per week Comment: one-two drinks per day Drug use: Not Currently Comment: marijuana use, has used inhalants Reviewed current medications, allergies, past medical history, surgical history, family history and social history today. REVIEW OF SYSTEMS All other reviewed and negative other than HPI. VITALS: BP 106/72 Pulse 61 Ht 180.3 cm (5' 11) Wt 76.2 kg (168 lb) SpO2 98% BMI 23.43 kg/m Last 4 Encounter Wt Readings: Date: Wt: 10/03/2023 77.3 kg (170 lb 6.4 oz) 09/20/2023 76 kg (167 lb 9.6 oz) 08/30/2023 76.1 kg (167 lb 12.8 oz) 08/02/2023 77.1 kg (170 lb) PHYSICAL EXAMINATION: General appearance: Well appearing, alert, in no acute distress, well-hydrated, well nourished. Skin: Skin color, texture, turgor normal, no suspicious rashes or lesions Back: no flank pain. Lungs: Lungs clear to auscultation. No wheezing, rhonchi, rales Heart: RRR without murmur, gallop, or rubs. No ectopy Abdomen: Normal abdominal exam, Abdomen soft, non-tender. Bowel sounds normal. No masses, organomegaly Deferred prostate exam since going to send to urology. ASSESSMENT/PLAN: 1. Nocturia - ICD9: 788.43, ICD10: R35.1 (primary diagnosis) - limit caffeine. See urology. Call if any worsening. - BASIC METABOLIC PNL - PSA/PROSTSPECAG SCRN - CONSULT TO UROLOGY 2. Urinary frequency - ICD9: 788.41, ICD10: R35.0 - BASIC METABOLIC PNL - PSA/PROSTSPECAG SCRN - CONSULT TO UROLOGY 3. Elevated PSA - ICD9: 790.93, ICD10: R97.20 - BASIC METABOLIC PNL - PSA/PROSTSPECAG SCRN - CONSULT TO UROLOGY 4. Microscopic hematuria - ICD9: 599.72, ICD10: R31.29 - URINALYSIS, WITH MICROSCOPIC 5. Screening for prostate cancer - ICD9: V76.44, ICD10: Z12. - PSA/PROSTSPECAG SCRN 6. 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) - ICD9: 414.01, 413.9, ICD10: I25.118 - per cardiology 7. Mixed hyperlipidemia - ICD9: 272.2, ICD10: E78.2 Lori Chauhan MD documented in this encounter [facility] 10-05-2023 Miscellaneous Notes Patient given results and verbalized understanding of instructions given. Raina Harrison Please call patient and let him know urine culture did not reveal a UTI. Follow-up with PCP closely for the blood in his urine. documented in this encounter [facility] 10-03-2023 History of Present illness Narrative SUBJECTIVE: Gaston Lainez is a 72 year old male. Who presents today with burning with urination. He has had this burning for the last several years. He has to get up at night several times a night.last night he had burning with urination. His family MD gave him flomax for enlarged prostate. He has not seen a urologist for the symptoms yet. He has not had a fever and no abd pain no back pain and no blood in the urine. He states the flomax helped when he started it but not as much now HPI PAST MEDICAL HISTORY Diagnosis Date Abnormal stress echocardiogram 01/14/2021 01/21/[address] Barragan: right dominant. LMT min luminal, LAD mild diffuse, LCx mild luminal with large caliber nondominant vessel extending into a single large obtuse marginal branch, proximal vessel is mildly calcified +mild luminal irreg, RCA 40% Large-caliber dominant vessel: moderate calcification from the proximal to mid vessel, mild diffuse ectatic disease proximal.The ostium of the Anxiety state, unspecified 10/24/2007 Benign paroxysmal positional vertigo one remote episode Bunion Chronic obstructive asthma, unspecified 10/24/2007 Depression likely bipolar disorder Depressive disorder, not elsewhere classified 10/24/2007 Generalized anxiety disorder 10/24/2007 History of marijuana use 03/02/2016 Quit 08/2015 Hypermobility syndrome Mild coronary artery disease Mixed hyperlipidemia 11/27/2008 Nontraumatic rupture of tendons of biceps (long head) 12 R, 10/07 L OCD (obsessive compulsive disorder) Pneumonia, organism unspecified(486) 11/2001 bilateral: cleared Primary insomnia 03/02/2016 FAMILY HISTORY Problem Relation Age of Onset Heart Mother age 66, CA, SLE other (lupus) Mother diagnosed age 49 Heart Father age 84, CHF other (G6PD) Sister G6PD Diabetes Brother 1/2 brother Hypertension Brother 1/2 brother Colon Cancer Brother rectal cancer? 1/2 brother Social History Tobacco Use Smoking status: Former Packs/day: 0.50 Years: 9.00 Additional pack years: 0.00 Total pack years: 4.50 Types: Cigarettes Quit date: 10/31/1976 Years since quittin.9 Smokeless tobacco: Never Vaping Use Vaping Use: Never used Substance Use Topics Alcohol use: Not Currently Alcohol/week: 8.0 standard drinks of alcohol Types: 7 Glasses of Wine (5oz), 1 Cans of Beer (12oz) per week Comment: one-two drinks per day Drug use: Not Currently Comment: marijuana use, has used inhalants ALLERGIES No Known Allergies Current Outpatient Medications Medication Sig Dispense Refill QUEtiapine (SEROQUEL) 25 mg tablet Take 1 tablet by mouth three times a day. Take at 6 am, 12 pm, and 4 pm. 90 tablet 0 QUEtiapine (SEROQUEL) 50 mg tablet Take 1 tablet by mouth daily at bedtime. 30 tablet 1 OTC PRODUCT Take 1 tablet by mouth once daily. PREVAGEN REGULAR STRENGTH Tadalafil (CIALIS) 10 mg tablet 1-2 tabs daily as needed 30 tablet 2 atorvastatin (LIPITOR) 40 mg tablet Take 1 tablet by mouth once daily. 90 tablet 3 tamsulosin (FLOMAX) 0.4 mg Take 1 capsule by mouth daily at bedtime. 30 capsule 5 MULTIVITAMIN ORAL Take by mouth once daily. fluticasone-salmeterol (ADVAIR DISKUS) 250-50 mcg/dose inhaler INHALE 1 PUFF INSTRUCTED TWICE DAILY NEEDED (ASTHMA). 1 Each 5 docusate sodium (COLACE) 100 mg capsule Take 1 capsule by mouth twice daily. 30 capsule 1 metoprolol succinate ER (TOPROL XL) 25 mg 24 hr tablet TAKE 1 TABLET BY MOUTH EVERY DAY 90 tablet 3 polyethylene glycol 3350 (MIRALAX) 17 gram/dose powder 17g (1 scoop) with 8 oz daily as needed for constipation 225 g 5 albuterol HFA (VENTOLIN HFA) 90 mcg/actuation inhaler Inhale 2 Puffs as instructed every 4 hours as needed for wheezing/shortness of breath. 1 Each 5 cyanocobalamin, vitamin B-12, 5,000 mcg TbIE Take 1 tablet by mouth once daily. (Patient not taking: Reported on 08/30/2023) Cyanocobalamin 1,000 mcg subl Dissolve 1 tablet under the tongue once daily. Recommended by neuro Dr. Muro (Patient not taking: Reported on 08/30/2023) 90 tablet 3 ondansetron orally disintegrating (ZOFRAN ODT) 4 mg disintegrating tablet Take 1 tablet by mouth every 8 hours as needed for nausea/vomiting. (Patient not taking: Reported on 08/30/2023) 30 tablet 1 nitroglycerin sublingual (NITROQUICK) 0.4 mg SL tablet Dissolve 1 tablet under the tongue every 5 minutes as needed for Chest Pain. (Patient not taking: Reported on 08/30/2023) 1 Bottle of 25 0 No current facility-administered medications for this visit. OBJECTIVE: BP 142/80 Pulse 65 Temp 36.1 C (97 F) Resp 21 Wt 77.3 kg (170 lb 6.4 oz) SpO2 99% BMI 23.77 kg/m ROS all other systems reviewed and are negative Physical Exam Constitutional: Well developed, well nourished, NAD, A&O X3. ENT: Head is atraumatic, airway patent, mucosal membranes moist. Cardiac: Heart tone normal rate and rhythm Respiratory: Breath sounds clear GI: Abdomen soft and non-distended, non-tenderness, no rebound or guarding, bowel sounds normal. : no CVA tenderness MS: no swelling, tenderness or deformity in upper or lower extremities, no midline tenderness in cervical, thoracic or lumbar spine. Neuro: strength sensation and coordination intact. CN II-XII grossly intact, Skin: warm and dry with out rash, lesion or ecchymosis on exposed skin Psych: alert appropriate, speech clear It was a pleasure to take care of Gaston Lainez today. A urine sample was obtained and is negative for a uti. A urine culture will be sent. I have reviewed his chart and last year his psa was slightly elevated. I have encouraged him to follow up with his family md for a full evaluation and repeat labs. Patient will follow up with family physician. They may return to the Urgent Care or go to the ER for worsening symptoms or concerns. Patient verbalized understanding of plan of care and is in agreement. ASSESSMENT/PLAN: 1. Burning with urination - ICD9: 788.1, ICD10: R30.0 - UA DIP, URINE (POC) - URINE CULTURE Geovany Stewart APRN.JUSTICE documented in this encounter [facility] 10-03-2023 Miscellaneous Notes Patient Marilynn returned call and went over notes below from Dr Chauhan with understanding. Marilynn said she is going to have him go to express care. Message left for Marilynn to return call Gloria Connors Flomax helps with flow. Has nothing to do with burning. Needs to see one of us or urgent care. Patient's calling stating that patient is having more burning on the penis. They want to know if the medication should be increased? Flomax 0.4 mg Please review and advise further. Lenora Go documented in this encounter [facility] 08-09-2023 Miscellaneous Notes BEHAVIORAL HEALTH SOCIAL WORK QUICK NOTE Provider Action/FYI Tried to reach patient's Pt identified by name and . Patient answered, stated that Marilynn is not at home and to call back another time. ROSELINE Rai-S documented in this encounter [facility] 08-02-2023 Miscellaneous Notes Behavioral Health Social Work Progress Note Reason for referral: Resources Behavioral Health Resources: Psychiatry med management [facility] encounter type: Telephone Encounter Attempts to Outreach: 1 attempt Referral made: Psychiatry - External, Psychiatry - Internal Patient Discharged?: No Patient reported that caregiver was able to meet their needs today?: N/A therapist spoke to patient's . She states that they are not ok with traveling any further than [place]. [facility] was suggested, but she states that they cannot travel that far and do not know how to use zoom. therapist will discuss with KWADWO at [facility] to see if he would be appropriate. LATESHA Rai August 02, 2023 documented in this encounter [facility] 08-02-2023 History of Present illness Narrative 72 year old male with c/o increased anxiety. Gets worked up, wakes up with paranoid ideation. Woke and thought she wa having a republican and not invited. Gets frustrated with being redirected, corrected.l Has paranoia that is running around on him or moving money without and partner is lying, stealing, tricking him Notes more difficulty with urination. Taking flomax 0.4mg HISTORIES FAMILY HISTORY Problem Relation Age of Onset Heart Mother age 66, CA, SLE other (lupus) Mother diagnosed age 49 Heart Father age 84, CHF other (G6PD) Sister G6PD Diabetes Brother 1/2 brother Hypertension Brother 1/2 brother Colon Cancer Brother rectal cancer? 1/2 brother PAST MEDICAL HISTORY Diagnosis Date Abnormal stress echocardiogram 01/14/2021 01/21/[address] Barragan: right dominant. LMT min luminal, LAD mild diffuse, LCx mild luminal with large caliber nondominant vessel extending into a single large obtuse marginal branch, proximal vessel is mildly calcified +mild luminal irreg, RCA 40% Large-caliber dominant vessel: moderate calcification from the proximal to mid vessel, mild diffuse ectatic disease proximal.The ostium of the Anxiety state, unspecified 10/24/2007 Benign paroxysmal positional vertigo one remote episode Bunion Chronic obstructive asthma, unspecified 10/24/2007 Depression likely bipolar disorder Depressive disorder, not elsewhere classified 10/24/2007 Generalized anxiety disorder 10/24/2007 History of marijuana use 03/02/2016 Quit 08/2015 Hypermobility syndrome Mild coronary artery disease Mixed hyperlipidemia 11/27/2008 Nontraumatic rupture of tendons of biceps (long head) R, 10/07 L OCD (obsessive compulsive disorder) Pneumonia, organism unspecified(486) 11/2001 bilateral: cleared Primary insomnia 03/02/2016 PAST SURGICAL HISTORY Procedure Laterality Date COLONOSCOPY FLX DX W/COLLJ SPEC WHEN PFRMD 09/21/2006 repeat due 2016 COLONOSCOPY FLX DX W/COLLJ SPEC WHEN PFRMD 04/22/2020 Colonoscopy COLSC FLX W/RMVL OF TUMOR POLYP LESION SNARE TQ 04/19/2017 2 adenomatous polyps - ESOPHAGOGASTRODUODENOSCOPY TRANSORAL DIAGNOSTIC 07/23/2019 EGD EXCISION OF BENIGN LESION GREATER THAN 1.25 CM 03/29/2000 tongue and lip lesions: fibroma; nose: sebaceous hyperplasia PAST SURGICAL HISTORY OF repair flexor tendon left thumb PAST SURGICAL HISTORY OF Left 09/03/2019 Dr. medina [facility]: left CTR and tenosynovectomy at wrist level PAST SURGICAL HISTORY OF Left 04/29/2021 Left median nerve release at the elbow and forearm, Dontae Medina MD, [facility] ROTATOR CUFF REPAIR 2009 left ROTATOR CUFF REPAIR 04/22/2016 right VASECTOMY UNI/BI SPX W/POSTOP SEMEN EXAMS Social History Tobacco Use Smoking status: Former Packs/day: 0.50 Years: 9.00 Additional pack years: 0.00 Total pack years: 4.50 Types: Cigarettes Quit date: 10/31/1976 Years since quittin.7 Smokeless tobacco: Never Vaping Use Vaping Use: Never used Substance Use Topics Alcohol use: Not Currently Alcohol/week: 8.0 standard drinks of alcohol Types: 7 Glasses of Wine (5oz), 1 Cans of Beer (12oz) per week Comment: one-two drinks per day Drug use: Not Currently Comment: marijuana use, has used inhalants ACTIVE PROBLEM LIST Hypermobility Syndrome Bunion Copd, Mild (Hcc) Minor Depression Generalized anxiety disorder Mixed Hyperlipidemia Ocd (Obsessive Compulsive Disorder) Disorder of prostate Primary Insomnia History of Marijuana Use Well Adult Exam Incomplete Tear of Left Rotator Cuff Arthritis, Lumbar Spine Radicular Pain of Left Lower Extremity Acute Midline Low Back Pain With Left-Sided Sciatica Screening for Colon Cancer Colon Cancer Screening Tubular Adenoma of Colon Vertigo Neuralgic Amyotrophy of Left Brachial Plexus Fh: Prostate Cancer Sob (Shortness of Breath) Coronary Artery Disease of [place] Artery of [place] Heart With Stable Angina Pectoris (Hcc) H/O Cardiac Catheterization Palpitations Svt (Supraventricular Tachycardia) Bph With Obstruction/Lower Urinary Tract Symptoms Visual Hallucinations Gerd (Gastroesophageal Reflux Disease) S/P Reverse Total Shoulder Arthroplasty, Left Major Depressive Disorder, Recurrent, Mild (Hcc) Current Outpatient Medications Medication Sig Dispense Refill hydrOXYzine HCl (ATARAX) 10 mg tablet Take 1 tablet by mouth three times a day as needed for anxiety. 30 tablet 0 OTC PRODUCT Take 1 tablet by mouth once daily. PREVAGEN REGULAR STRENGTH cyanocobalamin, vitamin B-12, 5,000 mcg TbIE Take 1 tablet by mouth once daily. Tadalafil (CIALIS) 10 mg tablet 1-2 tabs daily as needed 30 tablet 2 atorvastatin (LIPITOR) 40 mg tablet Take 1 tablet by mouth once daily. 90 tablet 3 tamsulosin (FLOMAX) 0.4 mg Take 1 capsule by mouth daily at bedtime. 30 capsule 5 Cyanocobalamin 1,000 mcg subl Dissolve 1 tablet under the tongue once daily. Recommended by neuro Dr. Muro 90 tablet 3 MULTIVITAMIN ORAL Take by mouth once daily. fluticasone-salmeterol (ADVAIR DISKUS) 250-50 mcg/dose inhaler INHALE 1 PUFF INSTRUCTED TWICE DAILY NEEDED (ASTHMA). 1 Each 5 sertraline (ZOLOFT) 25 mg tablet Take 1 tablet by mouth once daily. 30 tablet 5 ondansetron orally disintegrating (ZOFRAN ODT) 4 mg disintegrating tablet Take 1 tablet by mouth every 8 hours as needed for nausea/vomiting. 30 tablet 1 docusate sodium (COLACE) 100 mg capsule Take 1 capsule by mouth twice daily. 30 capsule 1 QUEtiapine (SEROQUEL) 25 mg tablet TAKE 1-2 TABS BEFORE BED FOR INSOMNIA NEEDED. 60 tablet 5 metoprolol succinate ER (TOPROL XL) 25 mg 24 hr tablet TAKE 1 TABLET BY MOUTH EVERY DAY 90 tablet 3 polyethylene glycol 3350 (MIRALAX) 17 gram/dose powder 17g (1 scoop) with 8 oz daily as needed for constipation 225 g 5 albuterol HFA (VENTOLIN HFA) 90 mcg/actuation inhaler Inhale 2 Puffs as instructed every 4 hours as needed for wheezing/shortness of breath. 1 Each 5 nitroglycerin sublingual (NITROQUICK) 0.4 mg SL tablet Dissolve 1 tablet under the tongue every 5 minutes as needed for Chest Pain. 1 Bottle of 25 0 No current facility-administered medications for this visit. Abdominal Aortic Aneurysm Screening Never done Spirometry Never done Alpha-1 Antitrypsin Deficiency Screening Never done RSV Vaccine(1 - 1-dose 60+ series) Never done Shingrix Vaccine(2 of 3) due on 12/04/2014 DTaP,Tdap,Td Vaccine(2 - Td or Tdap) due on 03/05/2018 EXAM: BP 120/78 Pulse (!) 56 Temp 36.5 C (97.7 F) Resp 16 Wt 77.1 kg (170 lb) SpO2 97% BMI 23.71 kg/m Pleasant well appearing but slightly stress adult man in no acute distress. Alert and oriented all spheres. Nicely groomed and dressed. Cooperative. Mood is guarded, euthymic, joking, goal focused, poor insight into illness. States he will just work harder to avoid his delusions. Mildly anxious affect. Cognition intact to recent and remote memory though he interprets details differently from , does acknowledge corrections. Speech normal. No deficits to learning or comprehension. Skin warm, dry, pink to lips and nailbeds. Normal turgor. Respirations regular and unlabored. Extrem: no clubbing or cyanosis. Edema: none. Extremities are warm and pink with prompt capillary refill. ASSESSMENT/PLAN: 1. Visual hallucinations - ICD9: 368.16, ICD10: R44.1 (primary diagnosis) 2. Mild dementia with agitation, unspecified dementia type (HCC) - ICD9: 294.21, ICD10: F03.A11 Trial increase sertraline to 50mg daily May use quetiapine 25mg if needed as previously prescribed. Argued congenially about seeing geropsych but I explained to him this needs expertise I don't have. He reluctantly agreed so will see how he responds to intake. - CONSULT TO [facility] Recheck in 3 months or sooner if needed Elif Mckinley PA-C documented in this encounter [facility] 07-29-2023 Miscellaneous Notes calls and notified that prescription sent to pharmacy. voices understanding. Felicia Combs RN Left message for patient to return call. Shereen Bill Ma Can try in interim: The following approved medication requests have been transmitted electronically. Requested Prescriptions Signed Prescriptions Disp Refills hydrOXYzine HCl (ATARAX) 10 mg tablet 30 tablet 0 Sig: Take 1 tablet by mouth three times a day as needed for anxiety. Authorizing Provider: Elif MCKINLEY PA-C called to let you know pt is having increased anxiety/paranoia due to his dementia. scheduled apt for pt to come in on 08-02-23. If there is anything you want pt to do different before apt, please call . Veronica Chavez LPN documented in this encounter [facility] 07-11-2023 History of Present illness Narrative Patient presents with: Abscess: Multiple, buttocks x3 weeks HPI: Skin Lesion: Location: center of left and right buttocks-1 each Duration: 3 weeks Pruritis/Pain: tender with pressure on them Change: initial lesion on the left buttock; getting a 2nd lesion on the right Drainage/blister/pustule/ulceration: clear fluid and blood when scratched open, no fevers/chills Treatment: boil medicine from pharmacy Reports he has some memory issues. PAST MEDICAL HISTORY Diagnosis Date Abnormal stress echocardiogram 01/14/2021 01/21/[address] Barragan: right dominant. LMT min luminal, LAD mild diffuse, LCx mild luminal with large caliber nondominant vessel extending into a single large obtuse marginal branch, proximal vessel is mildly calcified +mild luminal irreg, RCA 40% Large-caliber dominant vessel: moderate calcification from the proximal to mid vessel, mild diffuse ectatic disease proximal.The ostium of the Anxiety state, unspecified 10/24/2007 Benign paroxysmal positional vertigo one remote episode Bunion Chronic obstructive asthma, unspecified 10/24/2007 Depression likely bipolar disorder Depressive disorder, not elsewhere classified 10/24/2007 Generalized anxiety disorder 10/24/2007 History of marijuana use 03/02/2016 Quit 08/2015 Hypermobility syndrome Mild coronary artery disease Mixed hyperlipidemia 11/27/2008 Nontraumatic rupture of tendons of biceps (long head) 12 R, 2/09 L OCD (obsessive compulsive disorder) Pneumonia, organism unspecified(486) 11/2001 bilateral: cleared Primary insomnia 03/02/2016 PAST SURGICAL HISTORY Procedure Laterality Date COLONOSCOPY FLX DX W/COLLJ SPEC WHEN PFRMD 09/21/2006 repeat due 2017 COLONOSCOPY FLX DX W/COLLJ SPEC WHEN PFRMD 04/22/2020 Colonoscopy COLSC FLX W/RMVL OF TUMOR POLYP LESION SNARE TQ 04/19/2017 2 adenomatous polyps - ESOPHAGOGASTRODUODENOSCOPY TRANSORAL DIAGNOSTIC 07/23/2019 EGD EXCISION OF BENIGN LESION GREATER THAN 1.25 CM 03/29/2000 tongue and lip lesions: fibroma; nose: sebaceous hyperplasia PAST SURGICAL HISTORY OF repair flexor tendon left thumb PAST SURGICAL HISTORY OF Left 09/03/2019 Dr. medina [facility]: left CTR and tenosynovectomy at wrist level PAST SURGICAL HISTORY OF Left 04/29/2021 Left median nerve release at the elbow and forearm, Dontae Medina MD, [facility] ROTATOR CUFF REPAIR 2008 left ROTATOR CUFF REPAIR 04/22/2016 right VASECTOMY UNI/BI SPX W/POSTOP SEMEN EXAMS MEDICATIONS: OTC PRODUCT Take 1 tablet by mouth once daily. PREVAGEN REGULAR STRENGTH cyanocobalamin, vitamin B-12, 5,000 mcg TbIE Take 1 tablet by mouth once daily. Tadalafil (CIALIS) 10 mg tablet 1-2 tabs daily as needed atorvastatin (LIPITOR) 40 mg tablet Take 1 tablet by mouth once daily. tamsulosin (FLOMAX) 0.4 mg Take 1 capsule by mouth daily at bedtime. Cyanocobalamin 1,000 mcg subl Dissolve 1 tablet under the tongue once daily. Recommended by neuro Dr. Muro MULTIVITAMIN ORAL Take by mouth once daily. fluticasone-salmeterol (ADVAIR DISKUS) 250-50 mcg/dose inhaler INHALE 1 PUFF INSTRUCTED TWICE DAILY NEEDED (ASTHMA). sertraline (ZOLOFT) 25 mg tablet Take 1 tablet by mouth once daily. ondansetron orally disintegrating (ZOFRAN ODT) 4 mg disintegrating tablet Take 1 tablet by mouth every 8 hours as needed for nausea/vomiting. docusate sodium (COLACE) 100 mg capsule Take 1 capsule by mouth twice daily. QUEtiapine (SEROQUEL) 25 mg tablet TAKE 1-2 TABS BEFORE BED FOR INSOMNIA NEEDED. metoprolol succinate ER (TOPROL XL) 25 mg 24 hr tablet TAKE 1 TABLET BY MOUTH EVERY DAY polyethylene glycol 3350 (MIRALAX) 17 gram/dose powder 17g (1 scoop) with 8 oz daily as needed for constipation albuterol HFA (VENTOLIN HFA) 90 mcg/actuation inhaler Inhale 2 Puffs as instructed every 4 hours as needed for wheezing/shortness of breath. nitroglycerin sublingual (NITROQUICK) 0.4 mg SL tablet Dissolve 1 tablet under the tongue every 5 minutes as needed for Chest Pain. ALLERGIES: ALLERGIES No Known Allergies VITALS: BP 121/68 Pulse 60 Temp 36.8 C (98.3 F) Resp 18 Wt 78.8 kg (173 lb 12.8 oz) SpO2 98% BMI 24.24 kg/m PHYSICAL EXAM: GEN: pleasant, no acute distress, alert HEENT: PERRL, EOMI, MMM NECK: supple, no lymphadenopathy, no thyromegaly HEART: regular rate, regular rhythm, no murmurs LUNGS: clear to auscultation, no wheezes or crackles, no increased WOB ABD: soft, non-distended, no masses palpated, non-tender BUTTOCKS: healing area lower midline of left buttock with slight hyperpigmentation scaring and <1cm flat shallow granulation. No induration or underlying fluctuance. Indistinct erythema in the same area on the right buttock without ulcer, pustule, vesicle, induration, or fluctuance. EXT: no clubbing, no cyanosis, no edema ASSESSMENT/PLAN: 1. Ulcer of buttock (HCC) - ICD9: 707.8, ICD10: L98.419 Drained abscesses by report. No evidence of active infection today. History is not collaborated. Lesions are in the location of pressure ulcer however he remains active with work and gym activities. Encourage patient to avoid ulcerating the lesions further, have his monitor the lesions, and follow-up if they advance toward infection again. Gloria Morrow MD documented in this encounter [facility] 06-14-2023 History of Present illness Narrative 72 year old male with c/o here for follow up. 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 (hcc) (primary encounter diagnosis) Svt (supraventricular tachycardia) Mixed hyperlipidemia Cardiovascular interval hx: no episodes or new data Current meds: Atorvastatin 40mg daily HS Metoprolol succinate ER NTG 0.4mg SL Use of NTG: No Chest pain, arm, jaw pain, neck, or upper back pain suggestive of angina: No. SOB: Yes, occasional wheezing/ sob r/t to lung issues Dyspnea with exertion: No orthopnea: No Cough : No racing or irregular heartbeats: No palpitations: No, but if gets up quickly syncopal sx: No Headache: No Unexplainable fatigue tired a lot. thinks he isn't eating right. Leg swelling: No Nausea: No diaphoresis: No Heartburn: No Claudication: No Smoking: No Following Low cholesterol, high fiber diet? Yes If on statin: muscle aches? No If on statin: GI sx or diarrhea? No Additional history none. Lab review: Component Latest Ref Rng & Units 11/26/2022 05/05/2023 06/10/2023 WBC 3.70 - 11.00 k/uL 7.44 RBC 4.20 - 6.00 m/uL 4.41 Hemoglobin 13.0 - 17.0 g/dL 13.7 Hematocrit 39.0 - 51.0 % 42.0 MCV 80.0 - 100.0 fL 95.2 MCH 26.0 - 34.0 pg 31.1 MCHC 30.5 - 36.0 g/dL 32.6 RDW-CV 11.5 - 15.0 % 14.0 Platelet Count 150 - 400 k/uL 225 MPV 9.0 - 12.7 fL 10.5 Neut% % 60.6 Abs Neut (ANC) 1.45 - 7.50 k/uL 4.51 Lymph% % 27.2 Abs Lymph 1.00 - 4.00 k/uL 2.02 [place]% % 8.3 Abs [place] <0.87 k/uL 0.62 Eosin% % 3.1 Abs Eosin <0.46 k/uL 0.23 Baso% % 0.5 Abs Baso <0.11 k/uL 0.04 Immature Gran % % 0.3 IMMATURE GRANS (ABS) <0.10 k/uL <0.03 NRBC /100 WBC 0.0 Absolute nRBC <0.01 k/uL <0.01 DTYPE Auto Protein, Total 6.3 - 8.0 g/dL 6.6 6.3 6.8 Albumin 3.9 - 4.9 g/dL 4.4 4.2 4.2 Calcium 8.5 - 10.2 mg/dL 9.4 9.0 9.7 Bilirubin, Total 0.2 - 1.3 mg/dL 0.7 0.6 0.7 Alkaline Phosphatase 38 - 113 U/L 57 54 53 AST 14 - 40 U/L 27 18 21 ALT 10 - 54 U/L 24 13 16 Glucose 74 - 99 mg/dL 84 71 (L) 93 BUN 9 - 24 mg/dL 8 (L) 13 11 Creatinine 0.73 - 1.22 mg/dL 0.90 0.86 0.89 Sodium 136 - 144 mmol/L 139 133 (L) 134 (L) Potassium 3.7 - 5.1 mmol/L 4.7 4.9 5.0 Chloride 97 - 105 mmol/L 104 99 99 CO2 22 - 30 mmol/L 24 23 23 Anion Gap 9 - 18 mmol/L 11 11 12 eGFR >=60 mL/min/1.73m 90 91 90 Cholesterol, Total <200 mg/dL 166 123 Triglyceride <150 mg/dL 43 46 HDL Cholesterol >39 mg/dL 79 57 Non HDL Cholesterol <130 mg/dL 87 66 Fasting Time hrs 15 11 VLDL Cholesterol <30 mg/dL 9 9 TC:HDL Ratio <5.10 2.10 2.16 LDL Cholesterol <100 mg/dL 78 57 LDL:HDL Ratio <2.54 0.99 1.00 Vit B12 Current medications: Cyanocobalamin 1000mcg SL Component Latest Ref Rng & Units 05/05/2023 06/10/2023 Vitamin B12 232 - 1,245 pg/mL 284 1,406 (H) Copd, mild (hcc) Current medications: Albuterol HFA 90mcg per act 2 puffs q4h prn Fluticasone-salmeterol 250-50 mcg/dose 1 puff twice daily as needed Mostly doing well. Occasionally wheezing at night which Generalized anxiety disorder Primary insomnia Obsessive-compulsive disorder, unspecified type Major depressive disorder, recurrent, mild (hcc) Visual hallucinations Cognitive impairment, mild, so stated History of marijuana use Alcohol dependence, daily use (hcc) Current medications: Quetiapine 25mg 1-2 tabs prior to bed as needed for isomnia Sertraline 25mg daily Dreaming more at night Hallucinations more often, not violent, identifies now as vivid dreams. Thinks hearing noises. states he seems to be improving off alcohol to which he agrees Gastroesophageal reflux disease, unspecified whether esophagitis present Current medication: none. Current symptoms: none. Last Mg level if on PPI chronically: N/a. Heartburn is controlled: Yes. Dysphagia: No. Bloody or black stools: No. Bowel changes: No. S/p reverse total shoulder arthroplasty, left Doing very well. In gym daily. Overhead ROM is good. Bph with obstruction/lower urinary tract symptoms Current medications: Tamsulosin 0.4mg HS Controlled on medicaiton, urine flow is great Erections good, better with PDI HISTORIES FAMILY HISTORY Problem Relation Age of Onset Heart Mother age 66, [place], SLE other (lupus) Mother diagnosed age 49 Heart Father age 84, CHF other (G6PD) Sister G6PD Diabetes Brother 1/2 brother Hypertension Brother 1/2 brother Colon Cancer Brother rectal cancer? 1/2 brother PAST MEDICAL HISTORY Diagnosis Date Abnormal stress echocardiogram 01/14/2021 01/21/[address] Barragan: right dominant. LMT min luminal, LAD mild diffuse, LCx mild luminal with large caliber nondominant vessel extending into a single large obtuse marginal branch, proximal vessel is mildly calcified +mild luminal irreg, RCA 40% Large-caliber dominant vessel: moderate calcification from the proximal to mid vessel, mild diffuse ectatic disease proximal.The ostium of the Anxiety state, unspecified 10/24/2007 Benign paroxysmal positional vertigo one remote episode Bunion Chronic obstructive asthma, unspecified 10/24/2007 Depression likely bipolar disorder Depressive disorder, not elsewhere classified 10/24/2007 Generalized anxiety disorder 10/24/2007 History of marijuana use 03/02/2016 Quit 08/2015 Hypermobility syndrome Mild coronary artery disease Mixed hyperlipidemia 11/27/2008 Nontraumatic rupture of tendons of biceps (long head) R, 10/07 L OCD (obsessive compulsive disorder) Pneumonia, organism unspecified(486) 11/2001 bilateral: cleared Primary insomnia 03/02/2016 PAST SURGICAL HISTORY Procedure Laterality Date COLONOSCOPY FLX DX W/COLLJ SPEC WHEN PFRMD 09/21/2006 repeat due 2017 COLONOSCOPY FLX DX W/COLLJ SPEC WHEN PFRMD 04/22/2020 Colonoscopy COLSC FLX W/RMVL OF TUMOR POLYP LESION SNARE TQ 04/19/2017 2 adenomatous polyps - ESOPHAGOGASTRODUODENOSCOPY TRANSORAL DIAGNOSTIC 07/23/2019 EGD EXCISION OF BENIGN LESION GREATER THAN 1.25 CM 03/29/2000 tongue and lip lesions: fibroma; nose: sebaceous hyperplasia PAST SURGICAL HISTORY OF repair flexor tendon left thumb PAST SURGICAL HISTORY OF Left 09/03/2019 Dr. medina [facility]: left CTR and tenosynovectomy at wrist level PAST SURGICAL HISTORY OF Left 04/29/2021 Left median nerve release at the elbow and forearm, Dontae Medina MD, [facility] ROTATOR CUFF REPAIR 2009 left ROTATOR CUFF REPAIR 04/22/2016 right VASECTOMY UNI/BI SPX W/POSTOP SEMEN EXAMS Social History Tobacco Use Smoking status: Former Packs/day: 0.50 Years: 9.00 Additional pack years: 0.00 Total pack years: 4.50 Types: Cigarettes Quit date: 10/31/1976 Years since quittin.6 Smokeless tobacco: Never Vaping Use Vaping Use: Never used Substance Use Topics Alcohol use: Not Currently Alcohol/week: 20.0 standard drinks of alcohol Types: 7 Glasses of Wine (5oz), 1 Cans of Beer (12oz) per week Comment: one-two drinks per day Drug use: Not Currently Comment: marijuana use, has used inhalants ACTIVE PROBLEM LIST Hypermobility Syndrome Bunion Copd, Mild (Hcc) Minor Depression Generalized anxiety disorder Mixed Hyperlipidemia Ocd (Obsessive Compulsive Disorder) Disorder of prostate Primary Insomnia History of Marijuana Use Well Adult Exam Incomplete Tear of Left Rotator Cuff Arthritis, Lumbar Spine Radicular Pain of Left Lower Extremity Acute Midline Low Back Pain With Left-Sided Sciatica Screening for Colon Cancer Colon Cancer Screening Tubular Adenoma of Colon Vertigo Neuralgic Amyotrophy of Left Brachial Plexus Fh: Prostate Cancer Sob (Shortness of Breath) Coronary Artery Disease of [place] Artery of [place] Heart With Stable Angina Pectoris (Hcc) H/O Cardiac Catheterization Palpitations Svt (Supraventricular Tachycardia) Bph With Obstruction/Lower Urinary Tract Symptoms Visual Hallucinations Gerd (Gastroesophageal Reflux Disease) S/P Reverse Total Shoulder Arthroplasty, Left Major Depressive Disorder, Recurrent, Mild (Hcc) Current Outpatient Medications Medication Sig Dispense Refill atorvastatin (LIPITOR) 40 mg tablet Take 1 tablet by mouth once daily. 90 tablet 3 tamsulosin (FLOMAX) 0.4 mg Take 1 capsule by mouth daily at bedtime. 30 capsule 5 Cyanocobalamin 1,000 mcg subl Dissolve 1 tablet under the tongue once daily. Recommended by neuro Dr. Muro 90 tablet 3 MULTIVITAMIN ORAL Take by mouth once daily. fluticasone-salmeterol (ADVAIR DISKUS) 250-50 mcg/dose inhaler INHALE 1 PUFF INSTRUCTED TWICE DAILY NEEDED (ASTHMA). 1 Each 5 sertraline (ZOLOFT) 25 mg tablet Take 1 tablet by mouth once daily. 30 tablet 5 oxyCODONE-acetaminophen (PERCOCET) 5-325 mg tablet Take 1-2 tablets by mouth every 4 hours as needed for pain. 28 tablet 0 ondansetron orally disintegrating (ZOFRAN ODT) 4 mg disintegrating tablet Take 1 tablet by mouth every 8 hours as needed for nausea/vomiting. 30 tablet 1 docusate sodium (COLACE) 100 mg capsule Take 1 capsule by mouth twice daily. 30 capsule 1 QUEtiapine (SEROQUEL) 25 mg tablet TAKE 1-2 TABS BEFORE BED FOR INSOMNIA NEEDED. 60 tablet 5 metoprolol succinate ER (TOPROL XL) 25 mg 24 hr tablet TAKE 1 TABLET BY MOUTH EVERY DAY 90 tablet 3 Tadalafil (CIALIS) 10 mg tablet 1-2 tabs daily as needed 30 tablet 2 polyethylene glycol 3350 (MIRALAX) 17 gram/dose powder 17g (1 scoop) with 8 oz daily as needed for constipation 225 g 5 albuterol HFA (VENTOLIN HFA) 90 mcg/actuation inhaler Inhale 2 Puffs as instructed every 4 hours as needed for wheezing/shortness of breath. 1 Each 5 nitroglycerin sublingual (NITROQUICK) 0.4 mg SL tablet Dissolve 1 tablet under the tongue every 5 minutes as needed for Chest Pain. 1 Bottle of 25 0 No current facility-administered medications for this visit. Abdominal Aortic Aneurysm Screening Never done Spirometry Never done Alpha-1 Antitrypsin Deficiency Screening Never done Shingrix Vaccine(2 of 3) due on 12/04/2014 DTaP,Tdap,Td Vaccine(2 - Td or Tdap) due on 03/05/2018 EXAM: BP 118/78 Pulse (!) 57 Resp 18 Wt 75.8 kg (167 lb) SpO2 97% BMI 23.29 kg/m Pleasant adult man in no acute distress. Alert and oriented all spheres. Normal affect and cognition. Speech fluid. No deficits to learning or comprehension. Skin warm, dry, pink to lips and nailbeds. Normal turgor. Respirations regular and unlabored. HEENT: NCAT. No scleral icterus or conjunctival injection. TM's clear. Nose and oropharynx free from injection or lesion. Oral membranes moist and pink. No cervical lymph nodes. Thyroid non-tender, no masses, or enlargement. Carotids pulses 2+/4+ without bruits. No JVD with HOB at 30 degrees. Chest is normal shape. Lungs are clear to all z[place] with good air exchange through out. HRRR without murmur or gallop. No lifts, heaves, or rubs. Extrem: no clubbing or cyanosis. Edema: none. Extremities are warm and pink with prompt capillary refill. Impressive ROM with left shoulder, 130 degrees flexion ASSESSMENT/PLAN: 1. 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) - ICD9: 414.01, 413.9, ICD10: I25.118 (primary diagnosis) Stable, no ischemic sx, BP controlled, lipids controlled 2. SVT (supraventricular tachycardia) - ICD9: 427.89, ICD10: I47.10 Stable, no recurrence 3. Mixed hyperlipidemia - ICD9: 272.2, ICD10: E78.2 - Controlled - Continue current medications - Counseled on healthy diet and regular exercise 4. COPD, mild (HCC) - ICD9: 496, ICD10: J44.9 Controlled, minimal use of rescue 5. Generalized anxiety disorder - ICD9: 300.02, ICD10: F41.1 Stable, improved 6. Primary insomnia - ICD9: 307.42, ICD10: F51.01 Ongoing issues, trying to stopseroquel 7. Obsessive-compulsive disorder, unspecified type - ICD9: 300.3, ICD10: F42.9 Traits persist 8. Major depressive disorder, recurrent, mild (HCC) - ICD9: 296.31, ICD10: F33.0 Controlled well. Continue medictions 9. Visual hallucinations - ICD9: 368.16, ICD10: R44.1 Unclear etiology, ? Hypnogogic seizure. Jina Caraballo leaning toward psychiatric source with hx r/t childhood. 10. Cognitive impairment, mild, so stated - ICD9: 331.83, ICD10: G31.84 mild 11. History of marijuana use - ICD9: 305.23, ICD10: F12.91 Abstinent per 12. Alcohol dependence, daily use (HCC) - ICD9: 303.91, ICD10: F10.20 Currently being monitored by , identifies no current use since outr last visit 13. Gastroesophageal reflux disease, unspecified whether esophagitis present - ICD9: 530.81, ICD10: K21.9 - Discussed lifestyle modifications including limiting caffeine, no meals three hours before sleep, and head of bed elevation. Remain off ETOH 14. S/P reverse total shoulder arthroplasty, left - ICD9: V43.61, ICD10: Z96.612 Doing well 15. BPH with obstruction/lower urinary tract symptoms - ICD9: 600.01, 599.69, ICD10: N40.1, N13.8 No issues on medication, continue tamsulosin 16. Erectile dysfunction, unspecified erectile dysfunction type - ICD9: 607.84, ICD10: N52.9 Doing well with medication - TADALAFIL 10 MG TABLET F/u 3 months Elif Mckinley PA-C documented in this encounter [facility] 06-13-2023 Miscellaneous Notes Letter sent ----- Message from Elif Mckinley PA-C sent at 06/12/2023 8:02 PM EDT ----- Please let him know B12 is robust. Thanks, Francisco Mckinley PA-C documented in this encounter [facility] 06-06-2023 History of Present illness Narrative Images from the original note were not included. Initial Podiatric Office Visit: Chief Complaint: This 72 year old male who presents with chief complaint:b/l foot pain HPI Patient presents to clinic for evaluation of b/l feet He complains of arch pain of both feet He uses custom orthotics and this does help He is interested in getting a prescription for a new orthotic. PAIN EVALUATION 06/06/2023 1517 Pain Level: 5 Pain Location: Other: See Comment bilateral feet Description: Aching Duration Units: Months Frequency: Intermittent Intervention/Comfort measure: Reposition;Relaxation Hemoglobin A1C (%) Date Value 11/26/2022 4.8 01/06/2021 5.3 02/28/2020 4.9 PCP: Elif Mckinley PA-C PAST MEDICAL HISTORY Diagnosis Date Abnormal stress echocardiogram 01/14/2021 01/21/[address] Barragan: right dominant. LMT min luminal, LAD mild diffuse, LCx mild luminal with large caliber nondominant vessel extending into a single large obtuse marginal branch, proximal vessel is mildly calcified +mild luminal irreg, RCA 40% Large-caliber dominant vessel: moderate calcification from the proximal to mid vessel, mild diffuse ectatic disease proximal.The ostium of the Anxiety state, unspecified 10/24/2007 Benign paroxysmal positional vertigo one remote episode Bunion Chronic obstructive asthma, unspecified 10/24/2007 Depression likely bipolar disorder Depressive disorder, not elsewhere classified 10/24/2007 Generalized anxiety disorder 10/24/2007 History of marijuana use 03/02/2016 Quit 08/2015 Hypermobility syndrome Mild coronary artery disease Mixed hyperlipidemia 11/27/2008 Nontraumatic rupture of tendons of biceps (long head) 12/00 R, 2/09 L OCD (obsessive compulsive disorder) Pneumonia, organism unspecified(486) 11/2001 bilateral: cleared Primary insomnia 03/02/2016 Current Outpatient Medications Medication Sig atorvastatin (LIPITOR) 40 mg tablet Take 1 tablet by mouth once daily. tamsulosin (FLOMAX) 0.4 mg Take 1 capsule by mouth daily at bedtime. Cyanocobalamin 1,000 mcg subl Dissolve 1 tablet under the tongue once daily. Recommended by neuro Dr. Muro MULTIVITAMIN ORAL Take by mouth once daily. sertraline (ZOLOFT) 25 mg tablet Take 1 tablet by mouth once daily. oxyCODONE-acetaminophen (PERCOCET) 5-325 mg tablet Take 1-2 tablets by mouth every 4 hours as needed for pain. ondansetron orally disintegrating (ZOFRAN ODT) 4 mg disintegrating tablet Take 1 tablet by mouth every 8 hours as needed for nausea/vomiting. docusate sodium (COLACE) 100 mg capsule Take 1 capsule by mouth twice daily. QUEtiapine (SEROQUEL) 25 mg tablet TAKE 1-2 TABS BEFORE BED FOR INSOMNIA NEEDED. metoprolol succinate ER (TOPROL XL) 25 mg 24 hr tablet TAKE 1 TABLET BY MOUTH EVERY DAY Tadalafil (CIALIS) 10 mg tablet 1-2 tabs daily as needed polyethylene glycol 3350 (MIRALAX) 17 gram/dose powder 17g (1 scoop) with 8 oz daily as needed for constipation albuterol HFA (VENTOLIN HFA) 90 mcg/actuation inhaler Inhale 2 Puffs as instructed every 4 hours as needed for wheezing/shortness of breath. nitroglycerin sublingual (NITROQUICK) 0.4 mg SL tablet Dissolve 1 tablet under the tongue every 5 minutes as needed for Chest Pain. fluticasone-salmeterol (ADVAIR DISKUS) 250-50 mcg/dose inhaler INHALE 1 PUFF INSTRUCTED TWICE DAILY NEEDED (ASTHMA). No current facility-administered medications for this visit. ALLERGIES No Known Allergies PAST SURGICAL HISTORY Procedure Laterality Date COLONOSCOPY FLX DX W/COLLJ SPEC WHEN PFRMD 09/21/2006 repeat due 2017 COLONOSCOPY FLX DX W/COLLJ SPEC WHEN PFRMD 04/22/2020 Colonoscopy COLSC FLX W/RMVL OF TUMOR POLYP LESION SNARE TQ 04/19/2017 2 adenomatous polyps - ESOPHAGOGASTRODUODENOSCOPY TRANSORAL DIAGNOSTIC 07/23/2019 EGD EXCISION OF BENIGN LESION GREATER THAN 1.25 CM 03/29/2000 tongue and lip lesions: fibroma; nose: sebaceous hyperplasia PAST SURGICAL HISTORY OF repair flexor tendon left thumb PAST SURGICAL HISTORY OF Left 09/03/2019 Dr. medina [facility]: left CTR and tenosynovectomy at wrist level PAST SURGICAL HISTORY OF Left 04/29/2021 Left median nerve release at the elbow and forearm, Dontae Medina MD, [facility] ROTATOR CUFF REPAIR 2008 left ROTATOR CUFF REPAIR 04/22/2016 right VASECTOMY UNI/BI SPX W/POSTOP SEMEN EXAMS FAMILY HISTORY Problem Relation Age of Onset Heart Mother age 66, [place], SLE other (lupus) Mother diagnosed age 49 Heart Father age 84, CHF other (G6PD) Sister G6PD Diabetes Brother 1/2 brother Hypertension Brother 1/2 brother Colon Cancer Brother rectal cancer? 1/2 brother Social History Tobacco Use Smoking status: Former Packs/day: 0.50 Years: 9.00 Additional pack years: 0.00 Total pack years: 4.50 Types: Cigarettes Quit date: 10/31/1976 Years since quittin.6 Smokeless tobacco: Never Vaping Use Vaping Use: Never used Substance Use Topics Alcohol use: Not Currently Alcohol/week: 20.0 standard drinks of alcohol Types: 7 Glasses of Wine (5oz), 1 Cans of Beer (12oz) per week Comment: one-two drinks per day Drug use: Not Currently Comment: marijuana use, has used inhalants REVIEW OF SYSTEMS GENERAL: Negative for Malaise, significant weight loss, fever RESPIRATORY: Negative for cough, wheezing and shortness of breath CARDIOVASCULAR: Negative for chest pain, leg swelling and palpitations GI: Negative for abdominal discomfort, blood in stools or black stools and change in bowel habits : Negative for dysuria, frequency and incontinence MUSCULOSKELETAL: Negative for joint pain or swelling, back pain, and muscle pain. SKIN: Negative for lesions, rash, and itching. HEMATOLOGY/LYMPHOLOGY Negative for prolonged bleeding, bruising easily, and swollen nodes. ENDOCRINE: Negative for cold or heat intolerance, polyuria, polydipsia and goiter. NEURO: negative Physical Exam: Constitutional: Pt is a well developed 72 year old male who is alert, oriented and cooperative Eyes: Following during examination. No redness or drainage. Respiratory: RR normal and nonlabored. Even breathing. No evidence of distress or shortness of breath. Psychology: Patient is engaged during conversation. Normal affect and mood. Does not appear depressed or anxious during encounter. Vascular: Dorsalis pedis and posterior tibial pulses palpable as b/l Capillary Fill time < 5 seconds to digits 1-5 b/l Skin temperature warm to war, proximal to distal b/l Hair growth present to digits Neurological: intact light touch/epicritic sensation Vibratory sensation intact to hallux b/l intact protective sensation no significant neurological deficits Dermatological: Nails 1-5 b/l appear normal. Webspaces clean and dry 1-4 b/l. Skin appears well hydrated and supple. good color, texture, turgor. No open lesions present. No callosities present. Musculoskeletal/Orthopaedic: Patient has no pain to palpation of b/l feet Foot type is pronated left and skewfoot right structurally AJ ROM is full with knee extended and flexed 1st MPJ is decreased when loaded and no pain or crepitus are noted with ROM. Large bunion is noted b/l MTJ, STJ are full and free of pain and crepitus. 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 History and physical examination performed. 2. Discussed skew foot deformity right and posterior tibial tendon dysfucntion left. Custom orthotics ordered,. Due to severe deformity, patient will benefit from a custom moded device compared to an over the counter device. 3. Discussed bunion of b/l feet. Patient not interested in surgery. Viri Beasley DPM Podiatry [address] [facility] [address] Dept: [phone] Dept AMB ROOMING INTAKE FLOWSHEET DATA Pain Pain Level: 5 Pain Location: Other: See Comment (bilateral feet) Description: Aching Duration Units: Months Frequency: Intermittent Intervention/Comfort measure: Reposition, Relaxation Patient presents with: Left Foot - Established Patient, Follow Up, Pain Right Foot - Established Patient, Follow Up, Pain Jacqueline He LPN documented in this encounter [facility] 05-23-2023 Miscellaneous Notes Addended by: KRUNAL BARRAGAN on: 05/23/2023 03:55 PM Modules accepted: Orders documented in this encounter [facility] 05-23-2023 Instructions Krunal Barragan MD - 05/23/2023 3:54 PM EDT We are increasing the Atorvastatin to 40 mg once per day Repeat fasting blood work in 3-4 months documented in this encounter [facility] 05-23-2023 History of Present illness Narrative Images from the original note were not included. [facility]OLOGY Cardiology ([place] ) [address] [facility] [id number] OUTPATIENT VISIT DATE 05/23/2023 PRIMARY CARE PHYSICIAN: Elif Mckinley [address] [place] [address] HISTORY OF PRESENT ILLNESS: Mr. Lainez is a 72 year old gentleman who had a cardiac catheterization due to abnormal stress test and chest pain in December 2020. He was found to have diffuse calcified nonobstructive coronary disease. He is also treated for borderline hypertension and dyslipidemia. He presents the office for routine follow-up. Patient reports he has stopped drinking due to concerns that it was causing dementia. He has not had alcoholic drink for many months. He tells me he has been feeling much better. He has not had symptoms of chest pain or pressure. His functional capacity remains adequate. He has not had symptoms concerning for CHF including PND, orthopnea, or lower extremity edema. PAST MEDICAL HISTORY Diagnosis Date Abnormal stress echocardiogram 01/14/2021 01/21/[address] Barragan: right dominant. LMT min luminal, LAD mild diffuse, LCx mild luminal with large caliber nondominant vessel extending into a single large obtuse marginal branch, proximal vessel is mildly calcified +mild luminal irreg, RCA 40% Large-caliber dominant vessel: moderate calcification from the proximal to mid vessel, mild diffuse ectatic disease proximal.The ostium of the Anxiety state, unspecified 10/24/2007 Benign paroxysmal positional vertigo one remote episode Bunion Chronic obstructive asthma, unspecified 10/24/2007 Depression likely bipolar disorder Depressive disorder, not elsewhere classified 10/24/2007 Generalized anxiety disorder 10/24/2007 History of marijuana use 03/02/2016 Quit 08/2015 Hypermobility syndrome Mild coronary artery disease Mixed hyperlipidemia 11/27/2008 Nontraumatic rupture of tendons of biceps (long head) R, 10/07 L OCD (obsessive compulsive disorder) Pneumonia, organism unspecified(486) 11/2001 bilateral: cleared Primary insomnia 03/02/2016 PAST SURGICAL HISTORY Procedure Laterality Date COLONOSCOPY FLX DX W/COLLJ SPEC WHEN PFRMD 09/21/2006 repeat due 2016 COLONOSCOPY FLX DX W/COLLJ SPEC WHEN PFRMD 04/22/2020 Colonoscopy COLSC FLX W/RMVL OF TUMOR POLYP LESION SNARE TQ 04/19/2017 2 adenomatous polyps - ESOPHAGOGASTRODUODENOSCOPY TRANSORAL DIAGNOSTIC 07/23/2019 EGD EXCISION OF BENIGN LESION GREATER THAN 1.25 CM 03/29/2000 tongue and lip lesions: fibroma; nose: sebaceous hyperplasia PAST SURGICAL HISTORY OF repair flexor tendon left thumb PAST SURGICAL HISTORY OF Left 09/03/2019 Dr. medina [facility]: left CTR and tenosynovectomy at wrist level PAST SURGICAL HISTORY OF Left 04/29/2021 Left median nerve release at the elbow and forearm, Dontae Medina MD, [facility] ROTATOR CUFF REPAIR 2009 left ROTATOR CUFF REPAIR 04/22/2016 right VASECTOMY UNI/BI SPX W/POSTOP SEMEN EXAMS SOCIAL HISTORY Social History Tobacco Use Smoking status: Former Packs/day: 0.50 Years: 9.00 Additional pack years: 0.00 Total pack years: 4.50 Types: Cigarettes Quit date: 10/31/1976 Years since quittin.5 Smokeless tobacco: Never Vaping Use Vaping Use: Never used Substance Use Topics Alcohol use: Not Currently Alcohol/week: 20.0 standard drinks of alcohol Types: 7 Glasses of Wine (5oz), 1 Cans of Beer (12oz) per week Comment: one-two drinks per day Drug use: Not Currently Comment: marijuana use, has used inhalants FAMILY HISTORY Problem Relation Age of Onset Heart Mother age 66, CA, SLE other (lupus) Mother diagnosed age 49 Heart Father age 84, CHF other (G6PD) Sister G6PD Diabetes Brother 1/2 brother Hypertension Brother 1/2 brother Colon Cancer Brother rectal cancer? 1/2 brother ALLERGIES: ALLERGIES No Known Allergies MEDICATIONS: tamsulosin (FLOMAX) 0.4 mg Take 1 capsule by mouth daily at bedtime. Cyanocobalamin 1,000 mcg subl Dissolve 1 tablet under the tongue once daily. Recommended by neuro Dr. Muro MULTIVITAMIN ORAL Take by mouth once daily. fluticasone-salmeterol (ADVAIR DISKUS) 250-50 mcg/dose inhaler INHALE 1 PUFF INSTRUCTED TWICE DAILY NEEDED (ASTHMA). sertraline (ZOLOFT) 25 mg tablet Take 1 tablet by mouth once daily. oxyCODONE-acetaminophen (PERCOCET) 5-325 mg tablet Take 1-2 tablets by mouth every 4 hours as needed for pain. ondansetron orally disintegrating (ZOFRAN ODT) 4 mg disintegrating tablet Take 1 tablet by mouth every 8 hours as needed for nausea/vomiting. docusate sodium (COLACE) 100 mg capsule Take 1 capsule by mouth twice daily. QUEtiapine (SEROQUEL) 25 mg tablet TAKE 1-2 TABS BEFORE BED FOR INSOMNIA NEEDED. metoprolol succinate ER (TOPROL XL) 25 mg 24 hr tablet TAKE 1 TABLET BY MOUTH EVERY DAY Tadalafil (CIALIS) 10 mg tablet 1-2 tabs daily as needed polyethylene glycol 3350 (MIRALAX) 17 gram/dose powder 17g (1 scoop) with 8 oz daily as needed for constipation albuterol HFA (VENTOLIN HFA) 90 mcg/actuation inhaler Inhale 2 Puffs as instructed every 4 hours as needed for wheezing/shortness of breath. nitroglycerin sublingual (NITROQUICK) 0.4 mg SL tablet Dissolve 1 tablet under the tongue every 5 minutes as needed for Chest Pain. atorvastatin (LIPITOR) 40 mg tablet Take 1 tablet by mouth once daily. REVIEW OF SYSTEMS: Review of Systems Constitutional: Negative for chills, fever, malaise/fatigue and weight loss. HENT: Negative for hearing loss and sore throat. Eyes: Negative for blurred vision and double vision. Respiratory: Negative. Cardiovascular: Negative. Genitourinary: Negative for dysuria, frequency, hematuria and urgency. Musculoskeletal: Negative. Skin: Negative. Neurological: Negative for dizziness, seizures, loss of consciousness, weakness and headaches. Endo/Heme/Allergies: Negative for environmental allergies. Does not bruise/bleed easily. Psychiatric/Behavioral: Negative for depression. PHYSICAL EXAMINATION: BP 122/76 Pulse 56 Wt 171 lb (77.6kg) SpO2 96% General: Very pleasant thin gentleman sitting appears comfortable no apparent distress. He is alert and oriented x3 HEENT: Carotid upstrokes are brisk bilaterally without bruits no JVD appreciated. Pulmonary: Lungs are clear no rales, wheezes, or rhonchi. Cardiovascular: Normal S1, S2 with regularly irregular rhythm. No murmurs, rubs, or gallops appreciated. Extremities: Warm, well-perfused, 2+ distal pulses. No lower extremity edema CARDIOVASCULAR MEDICINE TESTING: ECG in the office 04/26/2022: Normal sinus rhythm with frequent PVCs in the pattern of bigeminy. No significant ST or T wave changes Cardiac Catheterization 01/21/21: Hemodynamics: LVEDP: 16 mmHg LV - AORTA: No gradient. Coronary Angiography: Left Main: Large caliber vessel mild calcification of the distal vessel no significant obstructive disease Left Anterior Descending: Large caliber vessel. Moderate calcification in the proximal mid vessel. Mild diffuse disease noted in the proximal to mid vessel. Circumflex: Large caliber nondominant vessel extending into a single large obtuse marginal branch. The proximal vessel is mildly calcified. Mild luminal irregularities noted. Right Coronary Artery: Large-caliber dominant vessel. There is moderate calcification from the proximal to mid vessel. There is mild diffuse ectatic disease in the proximal vessel. The ostium of the PDA and posterior ventricular branches has diffuse 30 to 40% luminal stenosis. ECG in the office 01/15/2021: Normal sinus rhythm with frequent PACs and occasional PVCs Q waves noted in leads V1 and V2 consistent with possible septal infarct pattern. Nonspecific ST-T wave changes. Stress Echocardiogram 01/05/21 CONCLUSIONS: - Technically difficult exam due to body habitus and COPD. - Exam indication: Shortness of Breath - The exercise stress echo was positive for ischemia at 89 % of MPHR (8.1 METS). There is ischemia in the territory of the LAD. - The left ventricle is normal in size. Left ventricular systolic function is normal. EF = 57 5% (2D biplane) Grade I left ventricular diastolic dysfunction. - The right ventricle is normal in size. Right ventricular systolic function is normal. Stress ECG Conclusion: Conclusion: Normal with exception due to Low heart rate recovery, Frequent ventricular ectopy, Exercise systolic and diastolic HTN and Low chronotropic response index Stress ECG Summary: The patient's resting heart rate was 88 bpm and blood pressure was 140/90 mmHg. The patient exercised according to the Kirt protocol. Total exercise time was 8 minutes and 40 seconds. The test was terminated due to general fatigue. The maximum heart rate was 133 bpm, which is 89% predicted for age. METs achieved was 8.1. The double product achieved was [address]. Peak heart rate was 133 bpm and peak blood pressure was 150/94 mmHg. 48 Hour Holter Monitor Sinus rhythm with frequent ventricular ectopy burden of 4%. Frequent periods of sinus bradycardia (55%). Maximum HR 93 bpm. Minimum HR 44 bpm(2205). Average HR 60 bpm. Frequent ventricular ectopy seen as multifocal, singles, couplets, triplets and bigeminal cycles. One VE run of 4 beats 104 bpm at 5:48 AM (Day 2). Rare supraventricular ectopy seen as singles, couplets, triplets and SVE runs. Longest SVE run of 11 beats 90 bpm at 10:07 AM (Day 1). Fastest SVE run of 6 beats 100 bpm at 2:58 pm (Day 2). Patient recorded symptoms Picking tomatoes, bending up and down/dizzy correlated with PVC's and NSR. Event marker was not activated. IMPRESSION: Mr. Lainez is a 72 year old gentleman with a history of mild diffuse nonobstructive coronary artery disease on cardiac catheterization December 2020, hypertension, dyslipidemia who is here for routine follow-up. PLAN AND RECOMMENDATIONS: 1. 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) - ICD9: 414.01, 413.9, ICD10: I25.118 (primary diagnosis) I reviewed his catheterization films with him during his office visit. He has no symptoms concerning for angina. Continue current medical therapy and risk factor modification - COMP METABOLIC PANEL 2. Mixed hyperlipidemia - ICD9: 272.2, ICD10: E78.2 Maintained on Lipitor 20 mg daily. Fasting blood work from earlier this year was reviewed. LDL cholesterol 78 mg/dL. Now that he is off alcohol I have recommended increasing Lipitor to 40 mg daily and repeating fasting blood work in 3 to 4 months - ATORVASTATIN 40 MG TABLET - LIPID PANEL BASIC - COMP METABOLIC PANEL 3. Palpitations - ICD9: 785.1, ICD10: R00.2 4. SVT (supraventricular tachycardia) (HCC) - ICD9: 427.89, ICD10: I47.1 Remains asymptomatic Krunal Barragan MD documented in this encounter [facility] 05-20-2023 Miscellaneous Notes Images from the original note were not included. Records scanned into chart today. Please review. Media Information File Link Scan on 05/20/2023 8:46 AM by ProviderRian PA-C: Consultation - Ophthalmology [place] Information Document ID File Type Document Type Description [id number] Image External Document(s) Consultation - Ophthalmology Import Information Attached At Date Time User Dept Patient Level 05/20/2023 8:46 AM ProviderRian PA-C Document [place] [facility] [place] Document(s) Consultation - Ophthalmology 05/20/2023 8:46 AM Attached To: Mr. Gaston Lainez Source Information ProviderRian PA-C phoned to give GEETA Singh a heads up: reports patient saw Dr. Elias, today at [facility], for routine visit, and Dr. Elias saw something. Dr. Elias told patient he was going to call Francisco today. Patient doesn't know what Dr. Elias saw, has no clue. documented in this encounter [facility] 05-19-2023 Miscellaneous Notes Phone call placed patient's advised (see prior provider encounter) Patient's listed on chart verbalized understanding, agreed with plan of care. Lindy Chavez LPN Goal of testing was to better differentiate cause of cognitive decline. Lori Muro MD Call to patient's . Patient's doesn't want to add to his anxiety with the neuropsychological testing if it will not benefit him. Educated patient's on neuropsychological testing. She states he is on a wait list anyway, so the issue isn't urgent, but wonders how this testing will benefit him /change his plan of care if he goes through with it? Forwarding to Dr. Muro for review. Call to patient's . No answer. Left voicemail to return call. Patient spouse called today regarding the Neuropsych testing stating that they were placed on the wait list and wanted more information regarding the testing. She is worried that the test will make him more anxious then help him and wanted to know what the test is for exactly. Please call the spouse at [phone]. Thank you! Jerry Regan documented in this encounter [facility] 05-13-2023 Miscellaneous Notes Patient sees ingris on 05/23 at [facility] and made sure he is advised of the appointment TC to pt who voiced understanding of below. Please reach out to patient to schedule with current disease education specialist. Elizabeth Durán LPN ----- Message from Lori Muro Jr., MD sent at 05/13/2023 9:25 AM EDT ----- Please send copy of Holter to disease education specialist for review. Also please have pt contact disease education specialist for follow up. Pt symptomatic during testing with associated lionel and PVCs. Thank you, Lori Muro MD documented in this encounter [facility] 05-10-2023 Miscellaneous Notes Patient was made aware of the results. Patient verbalizes understanding. Patient asked that a letter with this information be sent to him to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 Coronary Artery Disease of [place] Artery of [place] Heart With Stable Angina Pectoris ([facility]) H/O Cardiac Catheterization Palpitations Svt (Supraventricular Tachycardia) ([facility]) Bph With Obstruction/Lower Urinary Tract Symptoms Visual Hallucinations Gerd (Gastroesophageal Reflux Disease) S/P Reverse Total Shoulder Arthroplasty, Left Current Outpatient Medications Medication Sig Dispense Refill oxyCODONE-acetaminophen (PERCOCET) 5-325 mg tablet Take 1-2 tablets by mouth every 4 hours as needed for pain. 28 tablet 0 ondansetron orally disintegrating (ZOFRAN ODT) 4 mg disintegrating tablet Take 1 tablet by mouth every 8 hours as needed for nausea/vomiting. 30 tablet 1 docusate sodium (COLACE) 100 mg capsule Take 1 capsule by mouth twice daily. 30 capsule 1 QUEtiapine (SEROQUEL) 25 mg tablet TAKE 1-2 TABS BEFORE BED FOR INSOMNIA NEEDED. 60 tablet 5 tamsulosin (FLOMAX) 0.4 mg Take 1 capsule by mouth daily at bedtime. 30 capsule 5 atorvastatin (LIPITOR) 20 mg tablet TAKE 1 TABLET BY MOUTH EVERY DAY 90 tablet 3 metoprolol succinate ER (TOPROL XL) 25 mg 24 hr tablet TAKE 1 TABLET BY MOUTH EVERY DAY 90 tablet 3 sertraline (ZOLOFT) 25 mg tablet Take 1 tablet by mouth once daily. 30 tablet 5 Tadalafil (CIALIS) 10 mg tablet 1-2 tabs daily as needed 30 tablet 2 polyethylene glycol 3350 (MIRALAX) 17 gram/dose powder 17g (1 scoop) with 8 oz daily as needed for constipation 225 g 5 fluticasone-salmeterol (ADVAIR DISKUS) 250-50 mcg/dose inhaler INHALE 1 PUFF INSTRUCTED TWICE DAILY NEEDED (ASTHMA). 1 Each 5 albuterol HFA (VENTOLIN HFA) 90 mcg/actuation inhaler Inhale 2 Puffs as instructed every 4 hours as needed for wheezing/shortness of breath. 1 Each 5 nitroglycerin sublingual (NITROQUICK) 0.4 mg SL tablet Dissolve 1 tablet under the tongue every 5 minutes as needed for Chest Pain. 1 Bottle of 25 0 No current facility-administered medications for this visit. ABDOMINAL AORTIC ANEURYSM SCREENING Never done SPIROMETRY Never done ALPHA-1 ANTITRYPSIN DEFICIENCY SCREENING Never done SHINGRIX VACCINE(2 of 3) due on 12/04/2014 DTAP,TDAP,TD(2 - Td or Tdap) due on 03/05/2018 COVID-19 VACCINE(6 - Pfizer series) due on 10/30/2022 EXAM: BP (P) 110/78 Resp (P) 16 Ht (P) 180.3 cm (5' 11) Wt (P) 80.7 kg (178 lb) BMI (P) 24.83 kg/m Pleasant older man in no acute distress. Alert and oriented all spheres. Normal affect and cognition. Speech normal. No deficits to learning or comprehension. Skin warm, dry, pink to lips and nailbeds. Normal turgor. Respirations regular and unlabored. HEENT: NCAT. No scleral icterus or conjunctival injection. TM's clear. Nose and oropharynx free from injection or lesion. Oral membranes moist and pink. No cervical lymph nodes. Thyroid non-tender, no masses, or enlargement. Carotids pulses 2+/4+ without bruits. No JVD with HOB at 30 degrees. Chest is normal shape. Lungs are clear to all zavala with good air exchange through out. HRRR without murmur or gallop. No lifts, heaves, or rubs. Extrem: no clubbing or cyanosis. Edema: none. Extremities are warm and pink with prompt capillary refill. ASSESSMENT/PLAN: 1. Status post reverse total replacement of left shoulder - ICD9: V43.61, ICD10: Z96.612 (primary diagnosis) Doing exceptionally well post-operatively. 2. Obsessive-compulsive disorder, unspecified type - ICD9: 300.3, ICD10: F42.9 Persistent traits, manageable. 3. Minor depression - ICD9: 311, ICD10: F32.A 4. Generalized anxiety disorder - ICD9: 300.02, ICD10: F41.1 Stable, continue meds 5. Primary insomnia - ICD9: 307.42, ICD10: F51.01 Continues quetiapine for mod, sleep which seems to help 6. Visual hallucinations - ICD9: 368.16, ICD10: R44.1 MRI showed no Lewy body disease. Discussed again the use of alcohol and I am not able to assess exactly what his use is as he sates it varies and tells me differently than the Gaston does. He is a daily user somewhere between 3-5 drinks a day. I have again discussed the affects alcohol on his body and in particular his brain. I have again reviewed use of alcohol or marijuana with quetiapine is not recommended. Psych DNP did not evaluate for hallucinations but focused on Altzheimer's disease. I would like consult to rule out physiologic sources for visual hallucinations. I have told Gaston he must stop alcohol use, that this may help with brain recovery with memory. Needs to have repeated testing as his anxiety in new social situations is very high - CONSULT TO NEUROLOGY 7. Cognitive impairment, mild, so stated - ICD9: 331.83, ICD10: G31.84 - CONSULT TO NEUROLOGY 8. History of marijuana use - ICD9: 305.23, ICD10: F12.91 States not currently using 9. Habitual alcohol use - ICD9: V49.89, ICD10: F10.90 As above - CONSULT TO NEUROLOGY 10. 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) - ICD9: 414.01, 413.9, ICD10: I25.118 Stable Intermittent mild chest pain stable with acceleration 11. SVT (supraventricular tachycardia) (HCC) - ICD9: 427.89, ICD10: I47.1 No episodes inlast 3 months 12. Palpitations - ICD9: 785.1, ICD10: R00.2 As above 13. Mixed hyperlipidemia - ICD9: 272.2, ICD10: E78.2 - Controlled - Continue current medications - Counseled on healthy diet and regular exercise 14. COPD, mild (HCC) - ICD9: 496, ICD10: J44.9 Stable, reduce LABA/LASA use 15. 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 documented in this encounter [facility] 03-08-2023 Miscellaneous Notes Pt's said to wait to discuss at visit Yes, I spoke with Jose Juan Combs and Gaston and I have already talked about dementia with Gaston r/t memory issues and he had an MRI brain and lab as part of the work up. I wanted him evaluated for his hallucinations identified by gaston back to childhood. This was discussed with Jose Juan Combs. Thanks, Francisco Mckinley PA-C Patient 's Marilynn calling to give Francisco Mckinley an update about patient. Patient has upcoming appt with Francisco on 03/14. Spouse Marilynn states [facility] and saw a Jose Juan Combs, psychiatrist, who believes pt has early stages of dementia and wanted Francisco to be aware of this when Francisco sees pt on the . Marilynn states she is not sure if Francisco would like pt to continue to be seen by the psychiatrist/counseling center or not and wanted Francisco's feedback. No need to call back if Francisco can advise pt and spouse at upcoming appt on 03/14. Elda Gonzalez RN documented in this encounter [facility] 03-02-2023 History of Present illness Narrative Episode Visit Count: 12 Therapist That Will Accept/Oversee The Plan Of Care: Donovan Gallo Start of Care Date: 01/03/23 Onset Date: 12/20/22 Plan of Care Certification Date: 01/03/23 Next Certification Due Date: 04/05/23 [facility] PHYSICAL THERAPY PROGRESS REPORT PLAN OF CARE UPDATE: Assessment: Gaston Lainez demonstrates significant improvement in physical activities, reaching behind back, reaching overhead, and use hand with arm at shoulder level . He has progressed toward goals. Patient continues to present with impairments in overall function, range of motion, and strength that interfere with lifting, heavy exertion . Current prognosis is Excellent due to: current objective clinical presentation, good overall health status, positive past response to therapy, within-session changes . He will benefit from continued skilled therapy services to meet the updated goals for this plan of care as noted below. Goals updated on 03/02/2023. Goals for Episode of Care: created on 01/03/23 through 04/05/23 [place] in home exercise program. Met Patient will decrease pain rating by 2 points to meet minimal clinical important difference for numeric pain rating scale. Met Patient will increase active ROM of L shoulder to 165 degrees flexion, and 45 degrees ER to allow pt to to improve performance of ADLs. Progressing towards Patient will demonstrate increase in B shoulder strength to 4+/5 during manual muscle testing in order to improve function for home management tasks, leisure / recreation skills, moderate to heavy functional tasks, and prior functional tasks. Progressing towards Perform reaching, lifting, carrying with decreased report of symptoms/pain in 8-12 weeks. Partially met Perform ADLs with use of LUE at shoulder height without pain. Partially met Planned Interventions, Frequency, and Duration: 1 visit, 4 weeks Total Number of Visits Planned: 1 Patient to be seen for Therapeutic exercise (89647), Neuromuscular re-education (86487), Manual therapy (52766), Therapeutic activities (20735), Self-skilled nursing management (27455), Patient/Family/Caregiver Education, Body Mechanics Training SUBJECTIVE: Patient Reason for Visit: Overall pt doing well. he has ocassional pain, but mostly just when he is working it hard. Lifting heavy is still his only limitation, everything else functionally is going well. Functional Limitations: lifting, heavy exertion Pain: Pain Pain Level: 0 Pain Location: Shoulder - Left PROMIS Scales Higher is Better 02/14/2023 01/03/2023 Phys Func - Score 41 (mild dysfunction) 41 (mild dysfunction) Phys Func - Percentile 18 % 18 % Self-Eff Symptom - Score 46 (Average) 42 (Average) Self-Eff Symptom - Percentile 34 % 21 % T-scores: mean of general population = 50. 5 points is clinically meaningfully difference Percentiles provide an indication of how the patient's score ranks in relation to the general population. Higher percentile rankings indicate better function/quality of life. 50th percentile is the average of the general population and indicates half of respondents had a worse score. OBJECTIVE MEASURES WITH LEVEL OF FUNCTION: UE AROM L Shoulder Flex: 155 Degrees L Shoulder ABduction: 165 Degrees L Shoulder Internal Rotation (Functional): Sacrum L Shoulder External Rotation (Functional): T1 UE and Cervical Strength R UE Strength: 4+/5 L UE Strength: 4/5 Dynamometer Strength R Shoulder Standing Scaption (lbs): 12.3 ft/lbs R Shoulder Standing External Rotation (lbs): 15.4 ft/lbs R Shoulder Standing Internal Rotation (lbs): 20.7 ft/lbs L Shoulder Standing Scaption (lbs): 12.9 ft/lbs L Shoulder Standing External Rotation (lbs): 13.6 ft/lbs L Shoulder Standing Internal Rotation (lbs): 18.8 ft/lbs R IR:ER Ratio (%) : 134.42 L IR:ER Ratio (%): 138.24 TREATMENT: Therapeutic Exercise: 1: Shoulder pulleys 6x10 into flexion 2: UBE x5 min total( 2.5 minutes forward, 2.5 minutes backwards) (discussed goals for therapy and pt's current progress) 3: GTB IR and ER 2x10 each 4: GTB rows 2x10 5: GTB straight arm extensions 2x10 6: GTB W's 2x10 7: *GTB T's/pullaparts 2x10 8: Full can 2# 3x10 9: *SL ER 2# 2x10 10: *Deltoid raises 3# 3x10 Skilled Intervention: Patient was educated in proper exercise technique and purpose for exercises. Skilled judgment was provided in selection of appropriate interventions. Provided written instruction for home exercise program to facilitate proper performance and compliance. Correct performance of therapeutic exercises was facilitated with verbal, visual, and tactile cuing. Billing Therapeutic Exercise Treatment Minutes: 31 Total Treatment Time Minutes (timed/untimed): 31 Donovan Gallo PT documented in this encounter [facility] 02-28-2023 History of Present illness Narrative Episode Visit Count: 11 Therapist That Will Accept/Oversee The Plan Of Care: Donovan Gallo Start of Care Date: 01/03/23 Onset Date: 12/20/22 Plan of Care Certification Date: 01/03/23 Next Certification Due Date: 04/05/23 Patient Identified by Name and Date of : Yes REHABILITATION AND SPORTS THERAPY PHYSICAL THERAPY TREATMENT NOTE ASSESSMENT: Gaston Lainez tolerated the session with fatigue, expected muscle soreness, and no issues. He demonstrated improvements with all exercise with increasing resistance without increase in pain. The patient will continue to benefit from ongoing skilled physical therapy to progress toward set goals. PLAN FOR NEXT VISIT: PN SUBJECTIVE: Patient Reason for Visit: Pt reports that everyday his shoulder is feeling better. Pain: Pain Pain Level: 0 Pain Location: Shoulder - Left Post Treatment Pain Post Treatment Pain Level: 0 Post Treatment Pain Location: Shoulder - Left OBJECTIVE MEASURES WITH LEVEL OF FUNCTION: Pt challenged with YTB W's. TREATMENT: Therapeutic Exercise: 1: Shoulder pulleys 6x10 into flexion 2: UBE x5 min total( 2.5 minutes forward, 2.5 minutes backwards) 3: PiTB ER 2x10 4: GTB IR 2x10 (GTB vended) 5: GTB shoulder flexion 2x10 6: GTB shoulder straight arm extension 2x10 7: Numbers on wall #1-5 with 1.5# wrist weight 3x30 seconds 8: Full can 2# 3x10 9: YTB W's 2x10 10: Body blade ER/IR 3x30 seconds 11: Body blade with up and down osciallations 3x30 seconds 12: Shoulder flexion with 2# 3x10 Skilled Intervention: Patient was educated in proper exercise technique and purpose for exercises. Skilled judgment was provided in selection of appropriate interventions. Correct performance of therapeutic exercises was facilitated with verbal and visual cuing. Billing Therapeutic Exercise Treatment Minutes: 38 Total Treatment Time Minutes (timed/untimed): 38 LAUREN Lozano PT documented in this encounter [facility] 02-24-2023 Miscellaneous Notes Returned call and spoke with Mr. Garret AGUIRRE. Identified concerns over dementia, ETOH abuse. Scored poorly of [place]stein minimental. Unable to draw numbers on clock and continued writing numbers up to 18 in a line. Asked if okay to consult neurology- agreed. We reviewed testing here and history with alcohol, marijuana. Also advised brain MRI results. Did not address hallucinations dating back to childhood but plans to see him again and will review. Will review at follow up Francisco Mckinley PA-C Dr. Constantin Combs, from the counseling [facility], asking GEETA Singh, to return his call when you get a minute. Reports you had referred patient to him for assessment, and he found something significant, he would like to discuss with you. Please return his call at [phone] documented in this encounter [facility] 02-16-2023 History of Present illness Narrative Episode Visit Count: 10 Therapist That Will Accept/Oversee The Plan Of Care: Donovan Gallo Start of Care Date: 01/03/23 Onset Date: 12/20/22 Plan of Care Certification Date: 01/03/23 Next Certification Due Date: 04/05/23 REHABILITATION AND SPORTS THERAPY PHYSICAL THERAPY TREATMENT NOTE ASSESSMENT: Gaston Lainez tolerated the session with fatigue and no issues. He demonstrated improvements in shoulder strength and tolerance for exercises. The patient will continue to benefit from ongoing skilled physical therapy to progress toward set goals and to continue with post-operative protocol. PLAN FOR NEXT VISIT: Continue with strength progression per tolerance. May try overhead pressing with light weight SUBJECTIVE: Patient Reason for Visit: Pt doing well today, no issues. Exercises going well at home Pain: Pain Pain Level: 0 Pain Location: Shoulder - Left Description: Sore Frequency: Intermittent OBJECTIVE MEASURES WITH LEVEL OF FUNCTION: TREATMENT: Therapeutic Exercise: 1: Shoulder pulleys 6x10 into flexion 2: UBE x5 min total( 2.5 minutes forward, 2.5 minutes backwards) 3: YTB ER 2x10 4: PiTB IR 2x10 5: PiTB shoulder flexion 2x10 6: *PiTB shoulder straight arm extension 2x10 7: Full can 2# 2x10 8: *YTB W's 2x10 Skilled Intervention: Patient was educated in proper exercise technique and purpose for exercises. Skilled judgment was provided in selection of appropriate interventions. Provided written instruction for home exercise program to facilitate proper performance and compliance. Correct performance of therapeutic exercises was facilitated with verbal, visual, and tactile cuing. Billing Therapeutic Exercise Treatment Minutes: 32 Total Treatment Time Minutes (timed/untimed): 32 Donovan Gallo PT documented in this encounter [facility] 02-14-2023 History of Present illness Narrative Episode Visit Count: 9 Therapist That Will Accept/Oversee The Plan Of Care: Donovan Gallo Start of Care Date: 01/03/23 Onset Date: 12/20/22 Plan of Care Certification Date: 01/03/23 Next Certification Due Date: 04/05/23 Patient Identified by Name and Date of : Yes REHABILITATION AND SPORTS THERAPY PHYSICAL THERAPY TREATMENT NOTE ASSESSMENT: Gaston Lainez tolerated the session with fatigue and no issues. He demonstrated difficulty with Er with YTB. The patient will continue to benefit from ongoing skilled physical therapy to progress toward set goals. PLAN FOR NEXT VISIT: Continue with strengthening of L shoulder SUBJECTIVE: Patient Reason for Visit: Pt states that he had a follow up and they are pleased with his progress. Pt denies any pain this morning. Pain: Pain Pain Level: 0 Pain Location: Shoulder - Left Post Treatment Pain Post Treatment Pain Location: Shoulder - Left Post Treatment Symptoms: Pt stated, my shoulder feels good at the end of the session. OBJECTIVE MEASURES WITH LEVEL OF FUNCTION: Pt easily fatigued with wax on and wax off. TREATMENT: Therapeutic Exercise: 1: Shoulder pulleys 6x10 into flexion 2: UBE x5 min total( 2.5 minutes forward, 2.5 minutes backwards) 3: Wax on, wax off on door 2x fatigue each way 4: Shoulder dennis IR 2x10 5: *ER with YTB 2x10 6: *IR with pink theraband 2x10 7: *Shoulder flexion with pink therabad 2x10 8: *Shoulder extension with pink theraband 2x10 9: Scapular retractions with pink theraband 2x10 10: Full can 2# 2x10 Skilled Intervention: Patient was educated in proper exercise technique and purpose for exercises. Reviewed and educated patient on additions/changes for home exercise program as above (*). Skilled judgment was provided in selection of appropriate interventions. Provided written instruction for home exercise program to facilitate proper performance and compliance. Correct performance of therapeutic exercises was facilitated with verbal and visual cuing. Billing Therapeutic Exercise Treatment Minutes: 41 Total Treatment Time Minutes (timed/untimed): 41 LAUREN Lozano PT documented in this encounter [facility] 02-11-2023 History of Present illness Narrative Episode Visit Count: 8 Therapist That Will Accept/Oversee The Plan Of Care: Donovan Gallo Start of Care Date: 01/03/23 Onset Date: 12/20/22 Plan of Care Certification Date: 01/03/23 Next Certification Due Date: 04/05/23 REHABILITATION AND SPORTS THERAPY PHYSICAL THERAPY PROGRESS REPORT PLAN OF CARE UPDATE: Assessment: Gaston Lainez demonstrates moderate improvement in heavy exertion, lifting, physical activities, reaching behind back, reaching overhead, and use hand with arm at shoulder level. He has progressed toward goals. Patient continues to present with impairments in overall function, range of motion, and strength that interfere with heavy exertion, lifting, physical activities . Current prognosis is Excellent due to: current objective clinical presentation, good overall health status, acuteness of condition, positive past response to therapy, within-session changes, good support system/ coping skills . He will benefit from continued skilled therapy services to meet the updated goals for this plan of care as noted below. Goals updated on 02/09/2023. Goals for Episode of Care: created on 01/03/23 through 04/05/23 [place] in home exercise program. Met Patient will decrease pain rating by 2 points to meet minimal clinical important difference for numeric pain rating scale. Met Patient will increase active ROM of L shoulder to 165 degrees flexion, and 45 degrees ER to allow pt to to improve performance of ADLs. Progressing towards Patient will demonstrate increase in B shoulder strength to 4+/5 during manual muscle testing in order to improve function for home management tasks, leisure / recreation skills, moderate to heavy functional tasks, and prior functional tasks. Progressing towards Perform reaching, lifting, carrying with decreased report of symptoms/pain in 8-12 weeks. Partially met Perform ADLs with use of LUE at shoulder height without pain. Partially met Planned Interventions, Frequency, and Duration: 2x/week, 4 weeks Total Number of Visits Planned: 8 Patient to be seen for Therapeutic exercise (32617), Neuromuscular re-education (52110), Manual therapy (79820), Therapeutic activities (65837), Self-skilled nursing management (92542), Patient/Family/Caregiver Education, Body Mechanics Training PLAN FOR NEXT VISIT: Continue per protocol, progress strengthening per tolerance SUBJECTIVE: Patient Reason for Visit: Pt doing well overall. Notes heavier exertion still limiting, but able to do all ADLs.Pt also has long standing back pain he would like to address. Pt notes standing for prolonged periods causes sciatic symptoms down the left leg. Functional Limitations: heavy exertion, lifting, physical activities Pain: Pain Pain Level: 2 Pain Location: Shoulder - Left Description: Sore Frequency: Intermittent PROMIS Scales Higher is Better 01/03/2023 Phys Func - Score 41 (mild dysfunction) Phys Func - Percentile 18 % Self-Eff Symptom - Score 42 (Average) Self-Eff Symptom - Percentile 21 % T-scores: mean of general population = 50. 5 points is clinically meaningfully difference Percentiles provide an indication of how the patient's score ranks in relation to the general population. Higher percentile rankings indicate better function/quality of life. 50th percentile is the average of the general population and indicates half of respondents had a worse score. OBJECTIVE MEASURES WITH LEVEL OF FUNCTION: UE AROM L Shoulder Flex: 150 Degrees L Shoulder ABduction: 150 Degrees L Shoulder Internal Rotation (Functional): L glutes L Shoulder External Rotation (Functional): C7 UE and Cervical Strength Strength Tested: Shoulder Dynamometer Testing R UE Strength: 4/5 grossly L UE Strength: 4-/5 grossly Dynamometer Strength R Shoulder Standing Scaption (lbs): 12.3 ft/lbs R Shoulder Standing External Rotation (lbs): 15.4 ft/lbs R Shoulder Standing Internal Rotation (lbs): 21.4 ft/lbs L Shoulder Standing Scaption (lbs): 12.1 ft/lbs L Shoulder Standing External Rotation (lbs): 9.7 ft/lbs L Shoulder Standing Internal Rotation (lbs): 20.8 ft/lbs R IR:ER Ratio (%) : 138.96 L IR:ER Ratio (%): 214.43 TREATMENT: Therapeutic Exercise: 1: Shoulder pulleys 6x10 into flexion 2: UBE x5 min total( 2.5 minutes forward, 2.5 minutes backwards) 3: Wax on, wax off on door 2x fatigue each way 4: *Full can 2# 3x10 5: reviewed HEP 6: Objective measures obtained today checking ROM, strength, and other motions/activities involving therapeutic movement and skilled assessment Skilled Intervention: Patient was educated in proper exercise technique and purpose for exercises. Skilled judgment was provided in selection of appropriate interventions. Provided written instruction for home exercise program to facilitate proper performance and compliance. Correct performance of therapeutic exercises was facilitated with verbal, visual, and tactile cuing. Billing Therapeutic Exercise Treatment Minutes: 41 Total Treatment Time Minutes (timed/untimed): 41 Donovan Gallo PT documented in this encounter [facility] 02-11-2023 History of Present illness Narrative Radiology Service Progress Note PATIENT NAME: Gaston Lainez DATE OF SERVICE: February 11, 2023 TIME: 9:10 AM PATIENT IDENTITY VERIFICATION COMPLETED USING TWO (2) IDENTIFIERS: Name and Date of confirmed by patient verbally. FALL SCREENING: Has the patient had 2 falls in the last year or 1 fall with injury or currently using an Ambulatory Assistive Device (Walker, Cane, Wheelchair, Crutches, etc.)? No PATIENT GENDER DATA: Male PATIENT RELEVANT IMPLANT DATA REVIEWED: Not Applicable RADIOLOGY DEPARTMENT: General X-ray: Exam(s) Completed: Upper Extremity X-Ray(s): Shoulder, AP / TRUE AP / AXILLARY left [place], Outlet and Axillary view PERIPHERAL IV DATA: Not applicable SIGNED BY: SUNNI Trinidad February 11, 2023 9:10 AM documented in this encounter [facility] 01-27-2023 History of Present illness Narrative Episode Visit Count: 6 Therapist That Will Accept/Oversee The Plan Of Care: Donovan Gallo Start of Care Date: 01/03/23 Onset Date: 12/20/22 Plan of Care Certification Date: 01/03/23 Next Certification Due Date: 04/05/23 REHABILITATION AND SPORTS THERAPY PHYSICAL THERAPY TREATMENT NOTE ASSESSMENT: Gaston Lainez tolerated the session with decreased symptoms. He demonstrated difficulty with increased volume of strengthening, and instructed patient extensively on how to lower volume and what intensity to push exercises to. The patient will continue to benefit from ongoing skilled physical therapy to progress toward set goals and to continue with post-operative protocol. PLAN FOR NEXT VISIT: Continue per surgical protocol; manual as needed for symptom management, progress exercises per tolerance SUBJECTIVE: Patient Reason for Visit: Pt pretty sore after last visit. Arm was really painful yesterday, less today Pain: Pain Pain Level: 7 Pain Location: Shoulder - Left Description: Sore Frequency: Continuous OBJECTIVE MEASURES WITH LEVEL OF FUNCTION: Tenderness to L deltoid recreates pain today No pain to palpate scapular spine TREATMENT: Therapeutic Exercise: 1: Shoulder pulleys 6x10 into flexion 2: UBE x3 min total 3: ER isometrics x10, 5 sec holds 4: AROM flexion 3x10 5: AROM abduction 3x10, 5 sec holds Skilled Intervention: Patient was educated in proper exercise technique and purpose for exercises. Skilled judgment was provided in selection of appropriate interventions. Provided written instruction for home exercise program to facilitate proper performance and compliance. Correct performance of therapeutic exercises was facilitated with verbal, visual, and tactile cuing. Manual Therapy: 1: IASTM to L deltoid with push to tolerance Skilled Intervention: Manual skills to improve joint mobility, ROM, and decrease pain. Utilized anatomy knowledge of the therapist, and assessment of patient's response to intervention. Billing Therapeutic Exercise Treatment Minutes: 24 Manual TherapyTreatment Minutes: 15 Total Treatment Time Minutes (timed/untimed): 39 Donovan Gallo PT documented in this encounter [facility] 01-03-2023 History of Present illness Narrative Images from the original note were not included. PAIN EVALUATION 12/31/2022 1403 Pain Level: 6 Pain Location: Shoulder-Left Description: Aching Frequency: Intermittent Intervention/Comfort measure: Medication;Cold tylenol Gaston Lainez comes in today for first postoperative visit following reverse total shoulder arthroplasty. Pain has been well controlled with medication. On exam the incision is healing with no surrounding erythema and no drainage. Sensation over the lateral deltoid is normal. There is a strong deltoid contraction to command. Range of motion testing today demonstrates mild discomfort with overhead and rotational testing appropriate for level of recovery. Radiographs taken of the shoulder today demonstrate expected position of reverse total shoulder arthroplasty components without any sign of component malalignment or breakage. There is no fracture. Today we discussed early progress following reverse total shoulder arthroplasty. The arm may be used for all activities as tolerated within limits of pain. Sling use is optional. Postoperative pain medication should be transitioned to a regimen of Tylenol and ibuprofen if possible. Return to see me in 4 weeks with repeat imaging of the shoulder at that time, sooner if problems arise. Fernando Delgado MD Shoulder & Elbow Surgeon Department of Orthopaedic Surgery [facility] documented in this encounter [facility] 12-31-2022 Miscellaneous Notes Radiology Service Progress Note PATIENT NAME: Gaston Lainez DATE OF SERVICE: December 31, 2022 TIME: 2:55 PM PATIENT IDENTITY VERIFICATION COMPLETED USING TWO (2) IDENTIFIERS: Name and Date of confirmed by patient verbally. FALL SCREENING: Has the patient had 2 falls in the last year or 1 fall with injury or currently using an Ambulatory Assistive Device (Walker, Cane, Wheelchair, Crutches, etc.)? No PATIENT GENDER DATA: Male PATIENT RELEVANT IMPLANT DATA REVIEWED: Not Applicable RADIOLOGY DEPARTMENT: General X-ray: Exam(s) Completed: Upper Extremity X-Ray(s): Shoulder, AP / TRUE AP / SUPRA OUTLET left PERIPHERAL IV DATA: Not applicable SIGNED BY: RT Jerod(R) December 31, 2022 2:55 PM documented in this encounter [facility] 12-31-2022 Progress note Formatting of t his note might be different from the original. Radiology Service Progress Note PATIENT NAME: Gaston Lainez DATE OF SERVICE: December 31, 2022 TIME: 2:55 PM PATIENT IDENTITY VERIFICATION COMPLETED USING TWO (2) IDENTIFIERS: Name and Date of confirmed by patient verbally. FALL SCREENING: Has the patient had 2 falls in the last year or 1 fall with injury or currently using an Ambulatory Assistive Device (Walker, Cane, Wheelchair, Crutches, etc.)? No PATIENT GENDER DATA: Male PATIENT RELEVANT IMPLANT DATA REVIEWED: Not Applicable RADIOLOGY DEPARTMENT: General X-ray: Exam(s) Completed: Upper Extremity X-Ray(s): Shoulder, AP / TRUE AP / SUPRA OUTLET left PERIPHERAL IV DATA: Not applicable SIGNED BY: RT Jerod(R) December 31, 2022 2:55 PM [facility] 12-17-2022 Miscellaneous Notes Patient is scheduled on 01/31/23 Called patient about 1:30 pm. Had to leave a message for patient to call us back Patient needs a post op physical therapy appointment about 01/31/23 Called patient to schedule his post op appt. He was on the road and asked if we could call him back about 1pm. I don't see he is scheduled yet. Plans have changed. Please reach out again but schedule him 6 weeks post-op. Thank you. Shereen Lui Sedc Left VM for the patient to schedule post op PT. Left VM for the patient to schedule a post op PT evaluation one week after upcoming surgery. Patient does not have a My Chart account. Patient is having surgery with Dr. Delgado on 12-20-2022. He needs to be seen post-op physical therapy approximately 1 week post-op. Please give this patient a call and assist with scheduling. Shereen Cruz documented in this encounter [facility] 12-13-2022 History and physical note HISTORY AND PHYSICAL EXAMINATION SERVICE DATE: 12/13/2022 SERVICE TIME: 6:07 AM PRIMARY CARE PHYSICIAN: Elif Mckinley PA-C REASON FOR VISIT: Gaston Lainez is a 72 year old male who is scheduled for Procedure(s): REVERSE TOTAL SHOULDER ARTHROPLASTY (Left) at the request of Dr. Fernando Delgado for consultation. My final recommendation will be communicated back to the requesting physician by way of shared medical record or letter. Subjective The patient has the following: ACTIVE PROBLEM LIST Hypermobility Syndrome Bunion Copd, Mild (Hcc) Minor Depression Generalized anxiety disorder Mixed Hyperlipidemia Ocd (Obsessive Compulsive Disorder) Disorder of prostate Primary Insomnia History of Marijuana Use Well Adult Exam Incomplete Tear of Left Rotator Cuff Arthritis, Lumbar Spine Radicular Pain of Left Lower Extremity Acute Midline Low Back Pain With Left-Sided Sciatica Screening for Colon Cancer Colon Cancer Screening Tubular Adenoma of Colon Vertigo Neuralgic Amyotrophy of Left Brachial Plexus Fh: Prostate Cancer Sob (Shortness of Breath) Coronary Artery Disease of [place] Artery of [place] Heart With Stable Angina Pectoris (Hcc) H/O Cardiac Catheterization Palpitations Svt (Supraventricular Tachycardia) (Hcc) Bph With Obstruction/Lower Urinary Tract Symptoms Visual Hallucinations Gerd (Gastroesophageal Reflux Disease) COVID-19 Immunization Status COVID-19 VACCINE (Series Information) Completed 07/02/2022 Imm Admin: COVID-19 booster vaccine, age 12+ yr, bivalent ([employer]) 02/18/2022 Imm Admin: COVID-19 vaccine, age 12+ yr (PFIZER-[employer] - MACK TOP) 06/10/2021 Imm Admin: COVID-19 vaccine, age 12+ yr ([employer] Funding-[employer] - PURPLE [employer]) Only the first 3 history entries have been loaded, but more history exists. CHIEF COMPLAINT: Pre-op exam HPI: Gaston Lainez is a 72 year old seen for PAC due to scheduled above surgery because of a left tear rotator cuff/failed rotator cuff surgery. 10/15/2022, Dr. Delgado CHIEF COMPLAINT: left shoulder pain PAIN EVALUATION 10/15/2022 0752 Pain Level: 6 Pain Location: Shoulder-Left Description: Aching Frequency: Continuous Intervention/Comfort measure: Medication;Reposition;Relaxation tylenol, prednisone-completed Comments: SXHX: L-RCR, CSI: 7 yrs ago, PT in the past SUBJECTIVE: Gaston Lainez is a 71 year old male who presents to clinic with left shoulder pain. Previously evaluated by Dr. Barber and diagnosed with left shoulder rotator cuff arthropathy. History of 2 previous rotator cuff repairs, most recently 2 to 3 years ago. States following that surgery he never really recovered. He is quite active and works out at 5 AM in the morning. He has pain and difficulty using this arm. Recently placed on prednisone without significant improvement. He is partially retired. REVIEW OF SYSTEMS: General: No weight loss, malaise or fevers. Neurological: No history of TIA's, stroke, KITCHEN MECHANIC tumor, impaired sensorium, hemiplegia, paraplegia or quadraplegia. No neurological symptoms or problems. Respiratory: +former smoker Positive for: COPD (on rx and as needed). Negative for: asthma, pneumonia within 6 weeks, tobacco use, URI < 2 weeks and obstructive sleep apnea. Cardiovascular: Positive for: CAD, hyperlipidemia and hypertension Patient's last office visit The following tests and/or procedures were not performed: cardiac stents. Negative for: anticoagulation therapy, arrhythmia, atrial fibrillation, chest pain, CHF, congenital heart defect, DVT/PE, recent CA, murmur/valvular heart disease, open heart surgery and valve surgery. GI: Positive for: GERD (otc rx as needed) Negative for: abdominal pain, dysphagia, irritable bowel syndrome, inflammatory bowel disease, liver disease, nausea, pancreatitis, vomiting and ETOH >2 drinks/day. : Positive for: BPH (on rx). Endocrine: No history of diabetes. Has not taken steroids within the past 30 days. No history of endocrinological symptoms or problems. Hematology: No history of bleeding or clotting disorder. Patient is not taking anti-coagulation or platelet medications. No history of hematological symptoms or problems. Oncology: No history of CA metastasis, chemo within 30 days, or radiotherapy within 90 days. No history of oncological symptoms or problems. Psych: Positive for: anxiety (on rx). Musculoskeletal: See HPI. Skin: Negative for lesions, rash and itching. PAST MEDICAL HISTORY Diagnosis Date Abnormal stress echocardiogram 01/14/2021 01/21/[address] Barragan: right dominant. LMT min luminal, LAD mild diffuse, LCx mild luminal with large caliber nondominant vessel extending into a single large obtuse marginal branch, proximal vessel is mildly calcified +mild luminal irreg, RCA 40% Large-caliber dominant vessel: moderate calcification from the proximal to mid vessel, mild diffuse ectatic disease proximal.The ostium of the Anxiety state, unspecified 10/24/2007 Benign paroxysmal positional vertigo one remote episode Bunion Chronic obstructive asthma, unspecified 10/24/2007 Depression likely bipolar disorder Depressive disorder, not elsewhere classified 10/24/2007 Generalized anxiety disorder 10/24/2007 History of marijuana use 03/02/2016 Quit 08/2015 Hypermobility syndrome Mild coronary artery disease Mixed hyperlipidemia 11/27/2008 Nontraumatic rupture of tendons of biceps (long head) R, 10/07 L OCD (obsessive compulsive disorder) Pneumonia, organism unspecified(486) 11/2001 bilateral: cleared Primary insomnia 03/02/2016 PAST SURGICAL HISTORY Procedure Laterality Date COLONOSCOPY FLX DX W/COLLJ SPEC WHEN PFRMD 09/21/2006 repeat due 2016 COLONOSCOPY FLX DX W/COLLJ SPEC WHEN PFRMD 04/22/2020 Colonoscopy COLSC FLX W/RMVL OF TUMOR POLYP LESION SNARE TQ 04/19/2017 2 adenomatous polyps - ESOPHAGOGASTRODUODENOSCOPY TRANSORAL DIAGNOSTIC 07/23/2019 EGD EXCISION OF BENIGN LESION GREATER THAN 1.25 CM 03/29/2000 tongue and lip lesions: fibroma; nose: sebaceous hyperplasia PAST SURGICAL HISTORY OF repair flexor tendon left thumb PAST SURGICAL HISTORY OF Left 09/03/2019 Dr. medina [facility]: left CTR and tenosynovectomy at wrist level PAST SURGICAL HISTORY OF Left 04/29/2021 Left median nerve release at the elbow and forearm, Dontae Medina MD, [facility] ROTATOR CUFF REPAIR 2008 left ROTATOR CUFF REPAIR 04/22/2016 right VASECTOMY UNI/BI SPX W/POSTOP SEMEN EXAMS FAMILY HISTORY Problem Relation Age of Onset Heart Mother age 66, CA, SLE other (lupus) Mother diagnosed age 49 Heart Father age 84, CHF other (G6PD) Sister G6PD Diabetes Brother 1/2 brother Hypertension Brother 1/2 brother Colon Cancer Brother rectal cancer? 1/2 brother Social History Tobacco Use Smoking status: Former Packs/day: 0.50 Years: 9.00 Pack years: 4.50 Types: Cigarettes Quit date: 10/31/1976 Years since quittin.1 Smokeless tobacco: Never Vaping Use Vaping Use: Never used Substance Use Topics Alcohol use: Yes Alcohol/week: 20.0 standard drinks Types: 7 Glasses of Wine (5oz), 1 Cans of Beer (12oz) per week Comment: one-two drinks per day Drug use: Not Currently Comment: marijuana use, has used inhalants Prior to Admission medications as of 12/13/22 1244 Medication Sig Last Dose Taking QUEtiapine (SEROQUEL) 25 mg tablet TAKE 1-2 TABS BEFORE BED FOR INSOMNIA NEEDED. Taking Yes tamsulosin (FLOMAX) 0.4 mg Take 1 capsule by mouth daily at bedtime. Taking Yes atorvastatin (LIPITOR) 20 mg tablet TAKE 1 TABLET BY MOUTH EVERY DAY Taking Yes metoprolol succinate ER (TOPROL XL) 25 mg 24 hr tablet TAKE 1 TABLET BY MOUTH EVERY DAY Taking Yes sertraline (ZOLOFT) 25 mg tablet Take 1 tablet by mouth once daily. Taking Yes Tadalafil (CIALIS) 10 mg tablet 1-2 tabs daily as needed Taking Yes polyethylene glycol 3350 (MIRALAX) 17 gram/dose powder 17g (1 scoop) with 8 oz daily as needed for constipation Taking Yes fluticasone-salmeterol (ADVAIR DISKUS) 250-50 mcg/dose inhaler INHALE 1 PUFF INSTRUCTED TWICE DAILY NEEDED (ASTHMA). Taking Yes albuterol HFA (VENTOLIN HFA) 90 mcg/actuation inhaler Inhale 2 Puffs as instructed every 4 hours as needed for wheezing/shortness of breath. Taking Yes nitroglycerin sublingual (NITROQUICK) 0.4 mg SL tablet Dissolve 1 tablet under the tongue every 5 minutes as needed for Chest Pain. Taking Yes mupirocin (BACTROBAN) 2 % ointment Apply 0.5 inch with cotton swab (Q-tip) to each nostril in the morning and evening for 5 days prior to and including day of surgery. No medication comments found. ALLERGIES No Known Allergies Objective PHYSICAL EXAM: General: alert and oriented (x3) and healthy appearance. Pertinent negatives noted - not distressed. Skin: normal color, no rash or lesions. HEENT: EOM intact and pupils equal round. Pertinent negatives noted - no carotid bruit. Cardiovascular: regular rate and rhythm, normal S1 and S2, no rub, murmurs, or gallop. Respiratory: normal breath sounds, no wheezes or crackles. No chest wall deformity or tenderness. Abdomen: soft. Pertinent negatives noted - not tender. Extremities: no deformity, no edema or tenderness, no joint swelling or clubbing. Neurological: normal cognition and motor skills. Gait normal. No weakness or sensory deficit. PAIN ASSESSMENT: Pain Pain Level: 6 Pain Location: Shoulder-Left Description: Sharp Duration Amount of Time: 2 Duration Units: Years Frequency: Continuous Intervention/Comfort measure: Medication VITALS: BP 130/90 Pulse 58 Temp (Src) 98.4 (Temporal) Resp 14 Ht 5' 11 (1.80m) Wt 180 lb (81.6kg) SpO2 97% BMI 25.12 kg/(m^2). Diagnostic tests reviewed for today's visit: Lab Value Units Date High Low HB 13.7 g/dL 11/26/2022 17.0 13.0 HCT 42.0 % 11/26/2022 51.0 39.0 WBC 7.44 k/uL 11/26/2022 11.00 3.70 PLT 225 k/uL 11/26/2022 400 150 NA 139 mmol/L 11/26/2022 144 136 K 4.7 mmol/L 11/26/2022 5.1 3.7 GLUC 84 mg/dL 11/26/2022 99 74 BUN 8 mg/dL 11/26/2022 24 9 CREAT 0.90 mg/dL 11/26/2022 1.22 0.73 PTSEC No results within date range. INR No results within date range. APTT No results within date range. ALT 24 U/L 11/26/2022 54 10 AST 27 U/L 11/26/2022 40 14 TBILI 0.7 mg/dL 11/26/2022 1.3 0.2 TSH 1.620 mIU/L 11/26/2022 4.200 0.270 Lab Value Units Date High Low HCGQT No results within date range. UHCG No results within date range. HCG, BODY* No results within date range. Lab Value Units Date High Low ABORHD No results within date range. ABSCREEN No results within date range. Hemoglobin A1C (%) Date Value 11/26/2022 4.8 01/06/2021 5.3 02/28/2020 4.9 Recent Results (from the past 8760 hour(s)) ECG COMPLETE Collection Time: 12/13/22 9:22 AM Result Value Ventricular Rate 75 Atrial Rate 62 P-R Interval 142 QRS Duration 74 QT Interval 390 QTC Calculation (Bazett) 435 Calculated P [place] 19 Calculated R [place] 5 Calculated T [place] -32 Impression SINUS RHYTHM WITH FREQUENT PREMATURE VENTRICULAR COMPLEXES NONSPECIFIC ST ABNORMALITY ABNORMAL ECG Confirmed by ARNAV JHA DO ([id number]) on 12/14/2022 7:57:49 PM No results found for this or any previous visit (from the past 14334 hour(s)). Assessment Patient has the following medical conditions which may affect nevaeh-operative course: Generalized anxiety disorder Assessment: stable on rx per pt OCD (obsessive compulsive disorder) Assessment: stable on rx per pt COPD, mild (HCC) Assessment: controlled on rx, former smoker Mixed hyperlipidemia Assessment: c/w statin Palpitations Assessment: controlled on rx SVT (supraventricular tachycardia) (HCC) Assessment: controlled on rx 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) Assessment: non-obstructing, following [facility] cardiology 10/25/2022 Dr. Barragan IMPRESSION: Mr. Lainez is a 72 year old gentleman with a history of mild diffuse nonobstructive coronary artery disease on cardiac catheterization December 2020, hypertension, dyslipidemia who is here for routine follow-up. PLAN AND RECOMMENDATIONS: 1. 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) - ICD9: 414.01, 413.9, ICD10: I25.118 (primary diagnosis) Patient continues to do well without symptoms concerning for angina. Continue current medical therapy and risk factor modification 2. Mixed hyperlipidemia - ICD9: 272.2, ICD10: E78.2 Maintained on Lipitor 20 mg daily. Repeat fasting lipid panel - LIPID PANEL BASIC 3. SVT (supraventricular tachycardia) (HCC) - ICD9: 427.89, ICD10: I47.1 4. Palpitations - ICD9: 785.1, ICD10: R00.2 Remains asymptomatic. BPH with obstruction/lower urinary tract symptoms Assessment: controlled on rx GERD (gastroesophageal reflux disease) Assessment: otc rx as needed [place] Activity Status Index: METS: Climb a flight of stairs or walk up a hill (5.50 METs) DASI Score: 5.5 Patient denies any chest pain or undue shortness of breath with the above physical activity. Clinical Frailty Scale: 3. Well, with treated comorbid disease STOP-Bang Score: Snores loudly Has or is being treated for high blood pressure Patient over 50 years old Male patient Denies feeling tired, fatigued, or sleepy during the daytime Has not been observed to stop breathing or choking/gasping during sleep BMI less than or equal to 35 kg/m^2 Does not have a large neck STOP-Bang Score: 4 [id number] Score: Age: 65-74 Sex: male CHF history: No Hypertension history: Yes Stroke/TIA/thromboembolism history: No Vascular disease history: No Diabetes history: No [id number] Score: 2 ARISCAT Score: Age: 51-80 Preoperative SpO2: >=96% Respiratory infection in the last month: No Preoperative anemia: No Surgical incision: peripheral Duration of surgery: 2-3 hrs Emergency procedure: No ARISCAT Score: 19 ASA Class: 3 ANESTHESIA FINDINGS: Intubation History: No history of difficult intubation Significant Anesthesia Considerations: none Airway History: No history of difficult airway I - PHYSICAL EVALUATION AIRWAY Patient intubated: No. Tracheostomy tube not present Mallampati: II. TM distance: >3 FB. Neck ROM: full ROM without neurological symptoms. Mouth opening: adequate. Short neck: no. Thick neck: no Patel present: no Lip Bite Test: II Microretrognathia/Micronagthia/Recesse d Chin: No DENTAL Dental findings: teeth intact. II - ANESTHESIA PLAN ASA Score: 3 Anesthetic Plan: other Anesthetic plan additional comments: *PACC/TCI - anesthesia choice. Beta Kirstin Monitoring Plan Post Procedure Analgesic Plan Informed Consent Anesthetic risks, benefits, alternatives, personnel and consent discussed: yes. Patient / Responsible Libertarian agrees to proceed: yes Patient / Surrogate agrees to blood products: Yes Discussed the possibility of lip / dental damage: yes Prepared for Surgery: optimally prepared for surgery, pending [see comment]. Labs, EKG CONSULTS: Patient does not require consults for optimization at this time Planned Anesthetic: other anesthesia choice The Following Tests/Procedures Have Been Initiated: Orders Placed This Encounter Type and Screen, 30 day Standing Status: Future Number of Occurrences: 1 Standing Expiration Date: 02/12/2023 Order Specific Question: Hospital of Planned Surgery or Procedure: Answer: [place] Confirm Blood Type Standing Status: Future Number of Occurrences: 1 Standing Expiration Date: 02/12/2023 Order Specific Question: Did Blood Bank direct you to place this order: Answer: No - Presurgical Workflow mupirocin (BACTROBAN) 2 % ointment Sig: Apply 0.5 inch with cotton swab (Q-tip) to each nostril in the morning and evening for 5 days prior to and including day of surgery. Dispense: 22 g Refill: 0 ECG COMPLETE Standing Status: Future Number of Occurrences: 1 Standing Expiration Date: 12/14/2023 Instructions Given to Patient: Instructions located in the after visit summary. Patient given verbal and written preop instructions and voices comprehension and compliance. SIGNATURE: Taylor Barrios APRN.CNP PATIENT NAME: Gaston Lainez DATE: December 13, 2022 TIME: 8:48 AM PAGER/CONTACT #: documented in this encounter [facility] 12-13-2022 Instructions Taylor Barrios APRN.CNP - 12/13/2022 8:47 AM EDT PATIENT PREOPERATIVE INSTRUCTIONS Fernando Delgado,* has scheduled you for your procedure at this surgery center: [facility]: [phone] -- [address] [address]. Please read below carefully for your personalized instructions. Dietary Restrictions: - No solid food after midnight. - You may have 12 ounces of clear liquids (water, clear juices such as apple juice or gatorade, carbonated beverages, clear tea, black coffee, jello) until 2 hours before scheduled arrival at facility. No red/purple coloring and no creamer/sugar Medications: Unless instructed differently below, stay on all of your medications until your surgery. Approved medications to take the morning of surgery with a sip of water: All rx meds are okay If you take any medications for erectile dysfunction-Cialis (Tadalafil), Levitra, Staxyn (Vardenafil) Viagra (Sildenenafil please do not take these for 48 hours before surgery. If you start any new medications after today's visit, please contact the surgeon's office. Blood Thinning Medications: - Stop NSAIDS (Ibuprofen, Advil, Aleve, Motrin, Celebrex, Mobic, etc.) 7 days before surgery, as directed by your surgeon. - Stop Aspirin 7 days before surgery, as directed by your surgeon. - Stop Vitamin E, ALL multi-vitamins, herbals and dietary supplements 7 days before surgery. - You may take Tylenol (Acetaminophen) or any of your pain medications that do not contain aspirin or NSAIDS as needed. Important Reminders: - Candy, mints, gum and tobacco products are NOT permitted the morning of surgery. - Hearing aids, dentures and glasses may be worn the morning of surgery. - NO jewelry, body piercings, makeup, hairpins or contacts are to be worn the day of surgery. If you develop symptoms such as a fever, cold, or flu, or have other changes to your health within TWO DAYS of scheduled surgery or the morning of surgery, please contact the surgery center above. Personal Belongings: -Please have photo ID and insurance cards. -If you do not have a copy of advance directives on file with us, please bring a copy with you on the day of surgery. - Leave ALL valuables and money at home or with family members. For Outpatient Procedures: - YOU MUST HAVE A RESPONSIBLE INKER TAKE YOU HOME. A COLLECTIONS PROFESSIONAL OR ACCOUNT DEVELOPMENT EXECUTIVE CANNOT BE MADE A RESPONSIBLE INKER. - We recommend that a responsible person stays with you overnight to take care of you. - You cannot stay in a hotel alone after outpatient surgery. You will not be permitted to have your surgery, if you do not have someone to take care of you. Arrival Time for Surgery: - The Surgery Center or hospital where you are having surgery will call the afternoon before surgery (or Tuesday for Tuesday surgery) with a scheduled arrival time. - If you have not heard by 4 pm, please contact the surgery center above. Please be aware that emergency situations arise, which may delay or change your surgical time. If this happens, we will notify you as soon as possible and regret any inconvenience. If you already have an Advance Directive, please fax a copy to [phone] or email to for it to be added to your chart. If you do not have an Advance Directive, you can find the appropriate form and more information at [email or web address]. We recommend that you complete the Advance Directive form found on the website and bring it with you the day of your surgery. It can be witnessed and scanned into your chart that day. Taylor Barrios APRN.JUSTICE documented in this encounter [facility] 11-29-2022 Miscellaneous Notes Left message with . Call to pt's cell: Patient was made aware of the results. Patient verbalizes understanding. Shereen Bill Ma ----- Message from Elif Mckinley PA-C sent at 11/29/2022 5:13 AM EDT ----- Please let him know numbers all look good, still waiting on testosterone. Thanks, Francisco Mckinley PA-C documented in this encounter [facility] 11-12-2022 Miscellaneous Notes Please sign post-op physical therapy orders. Thank you. Shereen Cruz documented in this encounter [facility] 11-12-2022 Miscellaneous Notes Krunal Barragan MD [facility] He is Low cardiac risk for non-cardiac surgery. He had a recent cardiac catheterization which demonstrated mild non-obstructive coronary artery disease. Thanks Saúl Barragan MD, Ph.D. documented in this encounter [facility] 10-27-2022 Miscellaneous Notes Patient has been identified by name and date of : Yes Requested Prescriptions Pending Prescriptions Disp Refills QUEtiapine (SEROQUEL) 25 mg tablet 60 tablet 5 Sig: TAKE 1-2 TABS BEFORE BED FOR INSOMNIA NEEDED. tamsulosin (FLOMAX) 0.4 mg 30 capsule 5 Sig: Take 1 capsule by mouth daily at bedtime. RX INSTRUCTIONS: Patient needs no later than this Tuesday. Patient aware RX will be sent to pharmacy. No need to notify patient. Sulema Aguiar Pss documented in this encounter [facility] 10-25-2022 Instructions Krunal Barragan MD - 10/25/2022 11:32 AM EST We are scheduling you for fasting blood work documented in this encounter [facility] 10-25-2022 History of Present illness Narrative Images from the original note were not included. [facility] SE[facility]AL CARDIOLOGY Cardiology ([facility]) [address] [id number] OUTPATIENT VISIT DATE 10/25/2022 PRIMARY CARE PHYSICIAN: Elif Mckinley [address] [place] [address] HISTORY OF PRESENT ILLNESS: Mr. Lainez is a 72 year old gentleman who had a cardiac catheterization due to abnormal stress test and chest pain in December 2020. He was found to have diffuse calcified nonobstructive coronary disease. He is also treated for borderline hypertension and dyslipidemia. He presents the office for routine follow-up. Since his last visit, he has been doing well. He he exercises almost daily. He said no decline in his functional capacity. He has not had symptoms concerning for angina either rest or with exertion. He has had no symptoms concerning for CHF including PND, orthopnea, or lower extremity edema. PAST MEDICAL HISTORY Diagnosis Date Abnormal stress echocardiogram 01/14/2021 01/21/[address] Barragan: right dominant. LMT min luminal, LAD mild diffuse, LCx mild luminal with large caliber nondominant vessel extending into a single large obtuse marginal branch, proximal vessel is mildly calcified +mild luminal irreg, RCA 40% Large-caliber dominant vessel: moderate calcification from the proximal to mid vessel, mild diffuse ectatic disease proximal.The ostium of the Anxiety state, unspecified 10/24/2007 Benign paroxysmal positional vertigo one remote episode Bunion Chronic obstructive asthma, unspecified 10/24/2007 Depression likely bipolar disorder Depressive disorder, not elsewhere classified 10/24/2007 Generalized anxiety disorder 10/24/2007 History of marijuana use 03/02/2016 Quit 08/2015 Hypermobility syndrome Mild coronary artery disease Mixed hyperlipidemia 11/27/2008 Nontraumatic rupture of tendons of biceps (long head) R, 10/07 L OCD (obsessive compulsive disorder) Pneumonia, organism unspecified(486) 11/2001 bilateral: cleared Primary insomnia 03/02/2016 PAST SURGICAL HISTORY Procedure Laterality Date COLONOSCOPY FLX DX W/COLLJ SPEC WHEN PFRMD 09/21/2006 repeat due 2016 COLONOSCOPY FLX DX W/COLLJ SPEC WHEN PFRMD 04/22/2020 Colonoscopy COLSC FLX W/RMVL OF TUMOR POLYP LESION SNARE TQ 04/19/2017 2 adenomatous polyps - ESOPHAGOGASTRODUODENOSCOPY TRANSORAL DIAGNOSTIC 07/23/2019 EGD EXCISION OF BENIGN LESION GREATER THAN 1.25 CM 03/29/2000 tongue and lip lesions: fibroma; nose: sebaceous hyperplasia PAST SURGICAL HISTORY OF repair flexor tendon left thumb PAST SURGICAL HISTORY OF Left 09/03/2019 Dr. medina [facility]: left CTR and tenosynovectomy at wrist level PAST SURGICAL HISTORY OF Left 04/29/2021 Left median nerve release at the elbow and forearm, Dontae Medina MD, [facility] ROTATOR CUFF REPAIR 2008 left ROTATOR CUFF REPAIR 04/22/2016 right VASECTOMY UNI/BI SPX W/POSTOP SEMEN EXAMS SOCIAL HISTORY Social History Tobacco Use Smoking status: Former Packs/day: 0.50 Years: 9.00 Pack years: 4.50 Types: Cigarettes Quit date: 10/31/1976 Years since quittin.0 Smokeless tobacco: Never Vaping Use Vaping Use: Never used Substance Use Topics Alcohol use: Yes Alcohol/week: 20.0 standard drinks Types: 7 Glasses of Wine (5oz), 1 Cans of Beer (12oz) per week Comment: one-two drinks per day Drug use: Not Currently Comment: marijuana use, has used inhalants FAMILY HISTORY Problem Relation Age of Onset Heart Mother age 66, CA, SLE other (lupus) Mother diagnosed age 49 Heart Father age 84, CHF other (G6PD) Sister G6PD Diabetes Brother 1/2 brother Hypertension Brother 1/2 brother Colon Cancer Brother rectal cancer? 1/2 brother ALLERGIES: ALLERGIES No Known Allergies MEDICATIONS: atorvastatin (LIPITOR) 20 mg tablet TAKE 1 TABLET BY MOUTH EVERY DAY metoprolol succinate ER (TOPROL XL) 25 mg 24 hr tablet TAKE 1 TABLET BY MOUTH EVERY DAY sertraline (ZOLOFT) 25 mg tablet Take 1 tablet by mouth once daily. Tadalafil (CIALIS) 10 mg tablet 1-2 tabs daily as needed QUEtiapine (SEROQUEL) 25 mg tablet TAKE 1-2 TABS BEFORE BED FOR INSOMNIA NEEDED. tamsulosin (FLOMAX) 0.4 mg Take 1 capsule by mouth daily at bedtime. polyethylene glycol 3350 (MIRALAX) 17 gram/dose powder 17g (1 scoop) with 8 oz daily as needed for constipation fluticasone-salmeterol (ADVAIR DISKUS) 250-50 mcg/dose inhaler INHALE 1 PUFF INSTRUCTED TWICE DAILY NEEDED (ASTHMA). albuterol HFA (VENTOLIN HFA) 90 mcg/actuation inhaler Inhale 2 Puffs as instructed every 4 hours as needed for wheezing/shortness of breath. nitroglycerin sublingual (NITROQUICK) 0.4 mg SL tablet Dissolve 1 tablet under the tongue every 5 minutes as needed for Chest Pain. REVIEW OF SYSTEMS: Review of Systems Constitutional: Negative for chills, fever, malaise/fatigue and weight loss. HENT: Negative for hearing loss and sore throat. Eyes: Negative for blurred vision and double vision. Respiratory: Negative. Cardiovascular: Negative. Genitourinary: Negative for dysuria, frequency, hematuria and urgency. Musculoskeletal: Negative. Skin: Negative. Neurological: Negative for dizziness, seizures, loss of consciousness, weakness and headaches. Endo/Heme/Allergies: Negative for environmental allergies. Does not bruise/bleed easily. Psychiatric/Behavioral: Negative for depression. PHYSICAL EXAMINATION: BP 98/68 Pulse 58 Wt 179 lb (81.2kg) SpO2 99% General: Very pleasant thin gentleman sitting appears comfortable no apparent distress. He is alert and oriented x3 HEENT: Carotid upstrokes are brisk bilaterally without bruits no JVD appreciated. Pulmonary: Lungs are clear no rales, wheezes, or rhonchi. Cardiovascular: Normal S1, S2 with regularly irregular rhythm. No murmurs, rubs, or gallops appreciated. Extremities: Warm, well-perfused, 2+ distal pulses. No lower extremity edema CARDIOVASCULAR MEDICINE TESTING: ECG in the office 04/26/2022: Normal sinus rhythm with frequent PVCs in the pattern of bigeminy. No significant ST or T wave changes Cardiac Catheterization 01/21/21: Hemodynamics: LVEDP: 16 mmHg LV - AORTA: No gradient. Coronary Angiography: Left Main: Large caliber vessel mild calcification of the distal vessel no significant obstructive disease Left Anterior Descending: Large caliber vessel. Moderate calcification in the proximal mid vessel. Mild diffuse disease noted in the proximal to mid vessel. Circumflex: Large caliber nondominant vessel extending into a single large obtuse marginal branch. The proximal vessel is mildly calcified. Mild luminal irregularities noted. Right Coronary Artery: Large-caliber dominant vessel. There is moderate calcification from the proximal to mid vessel. There is mild diffuse ectatic disease in the proximal vessel. The ostium of the PDA and posterior ventricular branches has diffuse 30 to 40% luminal stenosis. ECG in the office 01/15/2021: Normal sinus rhythm with frequent PACs and occasional PVCs Q waves noted in leads V1 and V2 consistent with possible septal infarct pattern. Nonspecific ST-T wave changes. Stress Echocardiogram 01/05/21 CONCLUSIONS: - Technically difficult exam due to body habitus and COPD. - Exam indication: Shortness of Breath - The exercise stress echo was positive for ischemia at 89 % of MPHR (8.1 METS). There is ischemia in the territory of the LAD. - The left ventricle is normal in size. Left ventricular systolic function is normal. EF = 57 5% (2D biplane) Grade I left ventricular diastolic dysfunction. - The right ventricle is normal in size. Right ventricular systolic function is normal. Stress ECG Conclusion: Conclusion: Normal with exception due to Low heart rate recovery, Frequent ventricular ectopy, Exercise systolic and diastolic HTN and Low chronotropic response index Stress ECG Summary: The patient's resting heart rate was 88 bpm and blood pressure was 140/90 mmHg. The patient exercised according to the Kirt protocol. Total exercise time was 8 minutes and 40 seconds. The test was terminated due to general fatigue. The maximum heart rate was 133 bpm, which is 89% predicted for age. METs achieved was 8.1. The double product achieved was [address]. Peak heart rate was 133 bpm and peak blood pressure was 150/94 mmHg. IMPRESSION: Mr. Lainez is a 72 year old gentleman with a history of mild diffuse nonobstructive coronary artery disease on cardiac catheterization December 2020, hypertension, dyslipidemia who is here for routine follow-up. PLAN AND RECOMMENDATIONS: 1. 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) - ICD9: 414.01, 413.9, ICD10: I25.118 (primary diagnosis) Patient continues to do well without symptoms concerning for angina. Continue current medical therapy and risk factor modification 2. Mixed hyperlipidemia - ICD9: 272.2, ICD10: E78.2 Maintained on Lipitor 20 mg daily. Repeat fasting lipid panel - LIPID PANEL BASIC 3. SVT (supraventricular tachycardia) (HCC) - ICD9: 427.89, ICD10: I47.1 4. Palpitations - ICD9: 785.1, ICD10: R00.2 Remains asymptomatic. Krunal Barragan MD documented in this encounter [facility] 10-25-2022 History of Present illness Narrative 72 year old male with c/o follow up on anxiety. Wants to discuss MRI. Current meds: Sertraline 25mg daily Change in medication Yes. Weaned off Paxil due to erectile dysfunction and no improvement. Refused consult psychiatry. Currently in counseling? No. Any Medication side effects? No. Sleep disturbance? Pretty good. Loss of interest in usual pleasurable activities? A little down because of interference wit things he enjoys. Sense of guilt, shame, low self esteem?No. Energy: no real good, still going to gym every morning. Trouble with concentration? Not good. Memory issues persistent. . Changes in appetite? No. Changes in weight? No Psychomotor retardation: No Suicidal thoughts: No Racing thoughts? No. Interpersonal/ family conflicts? No. Irritability? No. States every now and then still having hallucinations. Now states this has been ongoing since he was 7 years old. Having an occasional twinge in hand or leg. Doesn't go to the [employer] Still drinking daily. Feels anxiety nicely controlled. Watching more TV: gets wound up. Notes feels like going to pass out periodically. Happen this morning at gym. Had to sit for 15-20 minutes. Hard to get clear answers: states in different sequences dizzy and off balance and then not dizzy or vertiginous. Does make him nauseated. Asking to see ENT again for procedure they did (sounds like Letty's). HISTORIES FAMILY HISTORY Problem Relation Age of Onset Heart Mother age 66, CA, SLE other (lupus) Mother diagnosed age 49 Heart Father age 84, CHF other (G6PD) Sister G6PD Diabetes Brother 1/2 brother Hypertension Brother 1/2 brother Colon Cancer Brother rectal cancer? 1/2 brother PAST MEDICAL HISTORY Diagnosis Date Abnormal stress echocardiogram 01/14/2021 01/21/[address] Barragan: right dominant. LMT min luminal, LAD mild diffuse, LCx mild luminal with large caliber nondominant vessel extending into a single large obtuse marginal branch, proximal vessel is mildly calcified +mild luminal irreg, RCA 40% Large-caliber dominant vessel: moderate calcification from the proximal to mid vessel, mild diffuse ectatic disease proximal.The ostium of the Anxiety state, unspecified 10/24/2007 Benign paroxysmal positional vertigo one remote episode Bunion Chronic obstructive asthma, unspecified 10/24/2007 Depression likely bipolar disorder Depressive disorder, not elsewhere classified 10/24/2007 Generalized anxiety disorder 10/24/2007 History of marijuana use 03/02/2016 Quit 08/2015 Hypermobility syndrome Mild coronary artery disease Mixed hyperlipidemia 11/27/2008 Nontraumatic rupture of tendons of biceps (long head) R, 10/07 L OCD (obsessive compulsive disorder) Pneumonia, organism unspecified(486) 11/2001 bilateral: cleared Primary insomnia 03/02/2016 PAST SURGICAL HISTORY Procedure Laterality Date COLONOSCOPY FLX DX W/COLLJ SPEC WHEN PFRMD 09/21/2006 repeat due 2016 COLONOSCOPY FLX DX W/COLLJ SPEC WHEN PFRMD 04/22/2020 Colonoscopy COLSC FLX W/RMVL OF TUMOR POLYP LESION SNARE TQ 04/19/2017 2 adenomatous polyps - ESOPHAGOGASTRODUODENOSCOPY TRANSORAL DIAGNOSTIC 07/23/2019 EGD EXCISION OF BENIGN LESION GREATER THAN 1.25 CM 03/29/2000 tongue and lip lesions: fibroma; nose: sebaceous hyperplasia PAST SURGICAL HISTORY OF repair flexor tendon left thumb PAST SURGICAL HISTORY OF Left 09/03/2019 Dr. medina [facility]: left CTR and tenosynovectomy at wrist level PAST SURGICAL HISTORY OF Left 04/29/2021 Left median nerve release at the elbow and forearm, Dontae Medina MD, [facility] ROTATOR CUFF REPAIR 2009 left ROTATOR CUFF REPAIR 04/22/2016 right VASECTOMY UNI/BI SPX W/POSTOP SEMEN EXAMS Social History Tobacco Use Smoking status: Former Packs/day: 0.50 Years: 9.00 Pack years: 4.50 Types: Cigarettes Quit date: 10/31/1976 Years since quittin.0 Smokeless tobacco: Never Vaping Use Vaping Use: Never used Substance Use Topics Alcohol use: Yes Alcohol/week: 20.0 standard drinks Types: 7 Glasses of Wine (5oz), 1 Cans of Beer (12oz) per week Comment: one-two drinks per day Drug use: Not Currently Comment: marijuana use, has used inhalants ACTIVE PROBLEM LIST Hypermobility Syndrome Bunion Copd, Mild (Hcc) Minor Depression Generalized anxiety disorder Mixed Hyperlipidemia Ocd (Obsessive Compulsive Disorder) Disorder of prostate Primary Insomnia History of Marijuana Use Well Adult Exam Incomplete Tear of Left Rotator Cuff Arthritis, Lumbar Spine Radicular Pain of Left Lower Extremity Acute Midline Low Back Pain With Left-Sided Sciatica Screening for Colon Cancer Colon Cancer Screening Tubular Adenoma of Colon Vertigo Neuralgic Amyotrophy of Left Brachial Plexus Fh: Prostate Cancer Sob (Shortness of Breath) Coronary Artery Disease of [place] Artery of [place] Heart With Stable Angina Pectoris (Hcc) H/O Cardiac Catheterization Palpitations Svt (Supraventricular Tachycardia) ([facility]) Bph With Obstruction/Lower Urinary Tract Symptoms Visual Hallucinations Current Outpatient Medications Medication Sig Dispense Refill sertraline (ZOLOFT) 25 mg tablet Take 1 tablet by mouth once daily. 30 tablet 5 PARoxetine (PAXIL) 20 mg tablet 1 tab every day alternating with 1/2 tab every other day x 1 week, then 1/2 tab daily x 1 week, then 1/2 tab every other day x 1 week and off. with 1 tab every other day 11 tablet 0 predniSONE (DELTASONE) 20 mg tablet Take 2 tablets by mouth once daily. 10 tablet 0 Tadalafil (CIALIS) 10 mg tablet 1-2 tabs daily as needed 30 tablet 2 QUEtiapine (SEROQUEL) 25 mg tablet TAKE 1-2 TABS BEFORE BED FOR INSOMNIA NEEDED. 60 tablet 2 tamsulosin (FLOMAX) 0.4 mg Take 1 capsule by mouth daily at bedtime. 30 capsule 5 atorvastatin (LIPITOR) 20 mg tablet TAKE 1 TABLET BY MOUTH EVERY DAY 90 tablet 3 metoprolol succinate ER (TOPROL XL) 25 mg 24 hr tablet TAKE 1 TABLET BY MOUTH EVERY DAY 90 tablet 3 polyethylene glycol 3350 (MIRALAX) 17 gram/dose powder 17g (1 scoop) with 8 oz daily as needed for constipation 225 g 5 fluticasone-salmeterol (ADVAIR DISKUS) 250-50 mcg/dose inhaler INHALE 1 PUFF INSTRUCTED TWICE DAILY NEEDED (ASTHMA). 1 Each 5 albuterol HFA (VENTOLIN HFA) 90 mcg/actuation inhaler Inhale 2 Puffs as instructed every 4 hours as needed for wheezing/shortness of breath. 1 Each 5 nitroglycerin sublingual (NITROQUICK) 0.4 mg SL tablet Dissolve 1 tablet under the tongue every 5 minutes as needed for Chest Pain. 1 Bottle of 25 0 No current facility-administered medications for this visit. ABDOMINAL AORTIC ANEURYSM SCREENING Never done SPIROMETRY Never done ALPHA-1 ANTITRYPSIN DEFICIENCY SCREENING Never done SHINGRIX VACCINE(2 of 3) due on 12/04/2014 DTAP,TDAP,TD(2 - Td or Tdap) due on 03/05/2018 LDL CHOLESTEROL due on 11/17/2022 EXAM: BP 120/68 Pulse 64 Resp 18 Wt 80.7 kg (178 lb) SpO2 96% BMI 24.83 kg/m . BP w/Orthostatic Vitals Date and Time Orthostatic BP Orthostatic Pulse BP Pulse BP Position BP Site BP Cuff Size 10/25/2248 138/52 44 -- -- Standing Left Arm Regular Adult 10/25/22 0847 146/64 52 -- -- Supine Left Arm Regular Adult 10/25/22800 -- -- 120/68 64 -- -- -- Peak Flow Date and Time PF Resp 10/25/22800 -- 18 Pleasant older man in no acute distress. Alert and oriented all spheres. Normal affect and cognition. Speech normal. No deficits to learning or comprehension. Skin warm, dry, pink to lips and nailbeds. Normal turgor. Respirations regular and unlabored. HEENT: NCAT. No scleral icterus or conjunctival injection. TM's clear. Nose and oropharynx free from injection or lesion. Oral membranes moist and pink. No cervical lymph nodes. Thyroid non-tender, no masses, or enlargement. Carotids pulses 2+/4+ without bruits. No JVD with HOB at 30 degrees. Chest is normal shape. Lungs are clear to all zavala with good air exchange through out. HRRR without murmur or gallop. No lifts, heaves, or rubs. Extrem: no clubbing or cyanosis. Edema: none. Extremities are warm and pink with prompt capillary refill. Neuro: PERRLA. EOMI. No pass pointing. Normal confrontation. Negative Romberg. Negative Maribel-Hallpike ASSESSMENT/PLAN: 1. Obsessive-compulsive disorder, unspecified type - ICD9: 300.3, ICD10: F42.9 (primary diagnosis) stable 2. Generalized anxiety disorder - ICD9: 300.02, ICD10: F41.1 Improved with sertraline 3. Visual hallucinations - ICD9: 368.16, ICD10: R44.1 None since med change. Resistant to psychiatry but discussed why I feel necessary and he agrees to go 4. Cognitive impairment, mild, so stated - ICD9: 331.83, ICD10: G31.84 mild 5. Dizziness - ICD9: 780.4, ICD10: R42 Difficult to clearly understand sx. Doesn't have hearing aides in today which made it worse. Seeing cardiology who will also review and I will have him set up again with [facility] Dr. Brigida Bentley. F/u 3 months or as needed Elfi Mckinley PA-C documented in this encounter [facility] 10-25-2022 Miscellaneous Notes Patient's request for medication is as follows: Requested Prescriptions Pending Prescriptions Disp Refills atorvastatin (LIPITOR) 20 mg tablet [Pharmacy Med Name: ATORVASTATIN 20 MG TABLET] 90 tablet 3 Sig: TAKE 1 TABLET BY MOUTH EVERY DAY metoprolol succinate ER (TOPROL XL) 25 mg 24 hr tablet [Pharmacy Med Name: METOPROLOL SUCC ER 25 MG TAB] 90 tablet 3 Sig: TAKE 1 TABLET BY MOUTH EVERY DAY Last seen 04/26/2022 in [facility]. Follow up scheduled for 10/25/2022. Prescription(s) as above. Please process accordingly. Elizabeth Mcintosh LPN documented in this encounter [facility] 10-15-2022 History of Present illness Narrative Images from the original note were not included. ORTHOPAEDIC SHOULDER & ELBOW SERVICE HISTORY & PHYSICAL EXAM REFERRING PROVIDER: No referring provider defined for this encounter. CHIEF COMPLAINT: left shoulder pain PAIN EVALUATION 10/15/2022 0752 Pain Level: 6 Pain Location: Shoulder-Left Description: Aching Frequency: Continuous Intervention/Comfort measure: Medication;Reposition;Relaxation tylenol, prednisone-completed Comments: SXHX: L-RCR, CSI: 7 yrs ago, PT in the past SUBJECTIVE: Gaston Lainez is a 71 year old male who presents to clinic with left shoulder pain. Previously evaluated by Dr. Barber and diagnosed with left shoulder rotator cuff arthropathy. History of 2 previous rotator cuff repairs, most recently 2 to 3 years ago. States following that surgery he never really recovered. He is quite active and works out at 5 AM in the morning. He has pain and difficulty using this arm. Recently placed on prednisone without significant improvement. He is partially retired. PAST MEDICAL HISTORY: PAST MEDICAL HISTORY Diagnosis Date Abnormal stress echocardiogram 01/14/2021 01/21/[address] Barragan: right dominant. LMT min luminal, LAD mild diffuse, LCx mild luminal with large caliber nondominant vessel extending into a single large obtuse marginal branch, proximal vessel is mildly calcified +mild luminal irreg, RCA 40% Large-caliber dominant vessel: moderate calcification from the proximal to mid vessel, mild diffuse ectatic disease proximal.The ostium of the Anxiety state, unspecified 10/24/2007 Benign paroxysmal positional vertigo one remote episode Bunion Chronic obstructive asthma, unspecified 10/24/2007 Depression likely bipolar disorder Depressive disorder, not elsewhere classified 10/24/2007 Generalized anxiety disorder 10/24/2007 History of marijuana use 03/02/2016 Quit 08/2015 Hypermobility syndrome Mild coronary artery disease Mixed hyperlipidemia 11/27/2008 Nontraumatic rupture of tendons of biceps (long head) R, 10/07 L OCD (obsessive compulsive disorder) Pneumonia, organism unspecified(486) 11/2001 bilateral: cleared Primary insomnia 03/02/2016 PAST SURGICAL HISTORY: PAST SURGICAL HISTORY Procedure Laterality Date COLONOSCOPY FLX DX W/COLLJ SPEC WHEN PFRMD 09/21/2006 repeat due 2016 COLONOSCOPY FLX DX W/COLLJ SPEC WHEN PFRMD 04/22/2020 Colonoscopy COLSC FLX W/RMVL OF TUMOR POLYP LESION SNARE TQ 04/19/2017 2 adenomatous polyps - ESOPHAGOGASTRODUODENOSCOPY TRANSORAL DIAGNOSTIC 07/23/2019 EGD EXCISION OF BENIGN LESION GREATER THAN 1.25 CM 03/29/2000 tongue and lip lesions: fibroma; nose: sebaceous hyperplasia PAST SURGICAL HISTORY OF repair flexor tendon left thumb PAST SURGICAL HISTORY OF Left 09/03/2019 Dr. medina [facility]: left CTR and tenosynovectomy at wrist level PAST SURGICAL HISTORY OF Left 04/29/2021 Left median nerve release at the elbow and forearm, Dontae Medina MD, [facility] ROTATOR CUFF REPAIR 2009 left ROTATOR CUFF REPAIR 04/22/2016 right VASECTOMY UNI/BI SPX W/POSTOP SEMEN EXAMS SOCIAL HISTORY: Social History Tobacco Use Smoking status: Former Packs/day: 0.50 Years: 9.00 Pack years: 4.50 Types: Cigarettes Quit date: 10/31/1976 Years since quittin.9 Smokeless tobacco: Never Vaping Use Vaping Use: Never used Substance Use Topics Alcohol use: Yes Alcohol/week: 20.0 standard drinks Types: 7 Glasses of Wine (5oz), 1 Cans of Beer (12oz) per week Comment: one-two drinks per day Drug use: Not Currently Comment: marijuana use, has used inhalants ALLERGIES: ALLERGIES No Known Allergies MEDICATIONS: Current Outpatient Medications on File Prior to Visit Medication Sig sertraline (ZOLOFT) 25 mg tablet Take 1 tablet by mouth once daily. PARoxetine (PAXIL) 20 mg tablet 1 tab every day alternating with 1/2 tab every other day x 1 week, then 1/2 tab daily x 1 week, then 1/2 tab every other day x 1 week and off. with 1 tab every other day predniSONE (DELTASONE) 20 mg tablet Take 2 tablets by mouth once daily. Tadalafil (CIALIS) 10 mg tablet 1-2 tabs daily as needed QUEtiapine (SEROQUEL) 25 mg tablet TAKE 1-2 TABS BEFORE BED FOR INSOMNIA NEEDED. tamsulosin (FLOMAX) 0.4 mg Take 1 capsule by mouth daily at bedtime. atorvastatin (LIPITOR) 20 mg tablet TAKE 1 TABLET BY MOUTH EVERY DAY metoprolol succinate ER (TOPROL XL) 25 mg 24 hr tablet TAKE 1 TABLET BY MOUTH EVERY DAY polyethylene glycol 3350 (MIRALAX) 17 gram/dose powder 17g (1 scoop) with 8 oz daily as needed for constipation fluticasone-salmeterol (ADVAIR DISKUS) 250-50 mcg/dose inhaler INHALE 1 PUFF INSTRUCTED TWICE DAILY NEEDED (ASTHMA). albuterol HFA (VENTOLIN HFA) 90 mcg/actuation inhaler Inhale 2 Puffs as instructed every 4 hours as needed for wheezing/shortness of breath. nitroglycerin sublingual (NITROQUICK) 0.4 mg SL tablet Dissolve 1 tablet under the tongue every 5 minutes as needed for Chest Pain. No current facility-administered medications on file prior to visit. PHYSICAL EXAMINATION: There were no vitals taken for this visit. EXAM: Shoulder Musculoskeletal Exam Inspection Left Left shoulder inspection is normal. Prior incision: arthroscopic portals Incision: well-healed Palpation Left Tenderness: present Anterior shoulder: mild Range of Motion Left Active forward elevation: 120. Shoulder active abduction: 90. Active external rotation at side: 20. Internal rotation: side. Strength Left External rotation: 4-/5. Internal rotation: 4+/5. Abduction: 4-/5. Strength additional comments: Appropriate deltoid activation against resistance. Neurovascular Left Left shoulder nerve sensation is normal. Scapula Left Left shoulder scapula is normal. Special Tests Left Rotator Cuff Signs Neer's test: positive Mesa test: positive Supraspinatus: positive Belly press test: negative Painful arc test: positive Bear hug test: negative Drop arm test: negative Instability Signs Joint laxity: negative General Constitutional: appears older than age Psychiatric: normal mood and affect and no acute distress Neurological: alert and oriented x3 IMAGING: I reviewed images taken on 09/21/2022. No acute fractures or dislocations. Glenohumeral joint degenerative changes. Chronic changes at greater tuberosity and narrowing of subacromial space to less than 6 mm acromiohumeral distance, consistent with chronic rotator cuff tendon tearing. MEDICAL DECISION MAKING: (M75.122) Complete tear of left rotator cuff, unspecified whether traumatic (primary encounter diagnosis) (M96.89) Failure of rotator cuff repair Gaston Lainez presents today with chronic recurrent tearing of his left rotator cuff. After thorough review of history, examination findings, and imaging, we discussed surgical intervention today which would be reverse total shoulder arthroplasty. I described the procedure in detail as well as the expected healing time of 3-6 months and physical therapy regimen following surgery, likely for much of this time. Informed consent was discussed in detail and signed in the office today. Significant risks of surgery including those of general anesthesia, and those from surgery including infection, nerve injury, bleeding, procedure failure and possible need for repeat procedure were all discussed at the time of consent. No guarantees as to the outcome of surgery were given or implied. Surgery will be scheduled for the next available date. Medical decision making for today's visit was conducted with review of the following data sources: History, exam, imaging REFERRING PHYSICIAN: The patient was referred to me for consultation by the following physician. This consultation note will be sent to the following physician by either mail or electronic medical record. No referring provider defined for this encounter. Ivana Torres PA-C Department of Orthopaedic Surgery [facility] Fernando Delgado MD Shoulder & Elbow Surgeon Department of Orthopaedic Surgery [facility] documented in this encounter [facility] 09-30-2022 Miscellaneous Notes Patient informed and verbalized understanding. No questions at this time. Gloria Connors ----- Message from Elif Mckinley PA-C sent at 09/30/2022 1:12 PM EST ----- Please advise MRI shows no significant abnormality other than moderate volume loss associated with age. ThanksFrancisco PA-C documented in this encounter [facility] 09-30-2022 History of Present illness Narrative Radiology Service Progress Note DATE OF SERVICE: September 30, 2022 TIME: 8:59 AM PATIENT IDENTITY VERIFICATION COMPLETED USING TWO (2) STANDARD IDENTIFIERS: Name and Date of confirmed by patient verbally. FALL SCREENING: Has the patient had 2 falls in the last year or 1 fall with injury or currently using an Ambulatory Assistive Device (Walker, Cane, Wheelchair, Crutches, etc.)? No PATIENT GENDER DATA: Male PATIENT RELEVANT IMPLANT DATA REVIEWED: Yes ALLERGIES: Reviewed and unchanged CONTRAST ALLERGY: NO. EXAM: MRI - CONTRAST TYPE: GROUP II PERIPHERAL IV DATA: Ambulatory: A peripheral IV was started in the Left antecubital site with a Angio cath: 22 gauge. RADIOLOGY DEPARTMENT: MR; Exam(s) Completed: Head: Routine Brain SIGNATURE: RT Barbra(R) PATIENT NAME: Gaston Lainez DATE: September 30, 2022 TIME: 8:59 AM documented in this encounter [facility] 09-29-2022 Miscellaneous Notes Spouse (Marilynn) calls to let provider know that [facility] won't fill prescriptions as ordered for Paxil and sertraline because they are in the same family. Call placed to [facility] and spoke to pharmacist notifying him that provider is aware of sertraline overlapping with paroxetine as we wean him off. Pharmacist voices understanding. Call placed back to Marilynn to notify both prescriptions should be filled and to check with pharmacy as to when they can garbage pick up man. Instructed Marilynn to call back with any further issues. Danyelle Smyth RN documented in this encounter [facility] 09-28-2022 Miscellaneous Notes Please advise I would like him to see psychiatry. This is similar to having a specialist for heart issues. I am concerned with his decline in memory and hallucinations. I would like a specialist's perspective. 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 Patient expressed medication concerns and has a hx of anxiety, OCD, and visual hallucinations. Discussed seeing a psychiatrist to manage medications and possibly a counselor. Patient stated, nah, I don't think I need any of that now, thanks. Advise should that change, to reach back out to his primary care doctor. SHANTHI Carlos September 28, 2022 documented in this encounter [facility] 09-28-2022 Miscellaneous Notes notified of new prescription instructions Images from the original note were not included. Elif Mckinley PA-C P [facility] Saskia Booker I talked with Marilynn. Please let her know she can't split Paxil CR in half due to formulation- I checked I sent in a Paxil weaning dose which he can do overlapping with new sertraline rx. Thanks, Francisco Mckinley PA-C documented in this encounter [facility] 09-28-2022 Miscellaneous Notes Addended by: Elif MCKINLEY on: 09/28/2022 02:53 PM Modules accepted: Orders documented in this encounter [facility] 09-28-2022 History of Present illness Narrative called. She feels he did better with sertraline. Takes extra quetiapine some days when he's really anxious. 2 glasses of wine and a marguerita everday Discussed decline in memory and focus. Will overlap sertraline 25mg daily with weaning paroxetine dose as sent. Thanks, Francisco Mckinley PA-C 71 year old male with c/o called-see phone encounter while I was out last week, concerned paxil not helping. Still racing,, not sleeping. Talks non-stop, twitches, states his heart is racing. Stopped paxil 3-4 days ago. Did not wean. Can't remember last dose. States prednisone last visit resolved his visual hallucinations. Filled and took the ativan written for the MRI. Non-traumatic rotator cuff tea: caught coat on a pole at gas station which whipped him around. Saw Dr. Barber: recommending reverse shoulder replacement. States erectile function has returned. HISTORIES FAMILY HISTORY Problem Relation Age of Onset Heart Mother age 66, CA, SLE other (lupus) Mother diagnosed age 49 Heart Father age 84, CHF other (G6PD) Sister G6PD Diabetes Brother 1/2 brother Hypertension Brother 1/2 brother Colon Cancer Brother rectal cancer? 1/2 brother PAST MEDICAL HISTORY Diagnosis Date Abnormal stress echocardiogram 01/14/2021 01/21/[address] Barragan: right dominant. LMT min luminal, LAD mild diffuse, LCx mild luminal with large caliber nondominant vessel extending into a single large obtuse marginal branch, proximal vessel is mildly calcified +mild luminal irreg, RCA 40% Large-caliber dominant vessel: moderate calcification from the proximal to mid vessel, mild diffuse ectatic disease proximal.The ostium of the Anxiety state, unspecified 10/24/2007 Benign paroxysmal positional vertigo one remote episode Bunion Chronic obstructive asthma, unspecified 10/24/2007 Depression likely bipolar disorder Depressive disorder, not elsewhere classified 10/24/2007 Generalized anxiety disorder 10/24/2007 History of marijuana use 03/02/2016 Quit 08/2015 Hypermobility syndrome Mild coronary artery disease Mixed hyperlipidemia 11/27/2008 Nontraumatic rupture of tendons of biceps (long head) 12/ R, 2/09 L OCD (obsessive compulsive disorder) Pneumonia, organism unspecified(486) 11/2001 bilateral: cleared Primary insomnia 03/02/2016 PAST SURGICAL HISTORY Procedure Laterality Date COLONOSCOPY FLX DX W/COLLJ SPEC WHEN PFRMD 09/21/2006 repeat due 2017 COLONOSCOPY FLX DX W/COLLJ SPEC WHEN PFRMD 04/22/2020 Colonoscopy COLSC FLX W/RMVL OF TUMOR POLYP LESION SNARE TQ 04/19/2017 2 adenomatous polyps - ESOPHAGOGASTRODUODENOSCOPY TRANSORAL DIAGNOSTIC 07/23/2019 EGD EXCISION OF BENIGN LESION GREATER THAN 1.25 CM 03/29/2000 tongue and lip lesions: fibroma; nose: sebaceous hyperplasia PAST SURGICAL HISTORY OF repair flexor tendon left thumb PAST SURGICAL HISTORY OF Left 09/03/2019 [facility]: left CTR and tenosynovectomy at wrist level PAST SURGICAL HISTORY OF Left 04/29/2021 Left median nerve release at the elbow and forearm, Dontae Medina MD, [facility] ROTATOR CUFF REPAIR 2008 left ROTATOR CUFF REPAIR 04/22/2016 right VASECTOMY UNI/BI SPX W/POSTOP SEMEN EXAMS Social History Tobacco Use Smoking status: Former Packs/day: 0.50 Years: 9.00 Pack years: 4.50 Types: Cigarettes Quit date: 10/31/1976 Years since quittin.9 Smokeless tobacco: Never Vaping Use Vaping Use: Never used Substance Use Topics Alcohol use: Yes Alcohol/week: 20.0 standard drinks Types: 7 Glasses of Wine (5oz), 1 Cans of Beer (12oz) per week Comment: one-two drinks per day Drug use: Not Currently Comment: marijuana use, has used inhalants ACTIVE PROBLEM LIST Hypermobility Syndrome Bunion Copd, Mild (Hcc) Minor Depression Generalized anxiety disorder Mixed Hyperlipidemia Ocd (Obsessive Compulsive Disorder) Disorder of prostate Primary Insomnia History of Marijuana Use Well Adult Exam Incomplete Tear of Left Rotator Cuff Arthritis, Lumbar Spine Radicular Pain of Left Lower Extremity Acute Midline Low Back Pain With Left-Sided Sciatica Screening for Colon Cancer Colon Cancer Screening Tubular Adenoma of Colon Vertigo Neuralgic Amyotrophy of Left Brachial Plexus Fh: Prostate Cancer Sob (Shortness of Breath) Coronary Artery Disease of [place] Artery of [place] Heart With Stable Angina Pectoris (Hcc) H/O Cardiac Catheterization Palpitations Svt (Supraventricular Tachycardia) (Hcc) Bph With Obstruction/Lower Urinary Tract Symptoms Visual Hallucinations Current Outpatient Medications Medication Sig Dispense Refill predniSONE (DELTASONE) 20 mg tablet Take 2 tablets by mouth once daily. 10 tablet 0 Tadalafil (CIALIS) 10 mg tablet 1-2 tabs daily as needed 30 tablet 2 QUEtiapine (SEROQUEL) 25 mg tablet TAKE 1-2 TABS BEFORE BED FOR INSOMNIA NEEDED. 60 tablet 2 tamsulosin (FLOMAX) 0.4 mg Take 1 capsule by mouth daily at bedtime. 30 capsule 5 atorvastatin (LIPITOR) 20 mg tablet TAKE 1 TABLET BY MOUTH EVERY DAY 90 tablet 3 metoprolol succinate ER (TOPROL XL) 25 mg 24 hr tablet TAKE 1 TABLET BY MOUTH EVERY DAY 90 tablet 3 polyethylene glycol 3350 (MIRALAX) 17 gram/dose powder 17g (1 scoop) with 8 oz daily as needed for constipation 225 g 5 albuterol HFA (VENTOLIN HFA) 90 mcg/actuation inhaler Inhale 2 Puffs as instructed every 4 hours as needed for wheezing/shortness of breath. 1 Each 5 nitroglycerin sublingual (NITROQUICK) 0.4 mg SL tablet Dissolve 1 tablet under the tongue every 5 minutes as needed for Chest Pain. 1 Bottle of 25 0 fluticasone-salmeterol (ADVAIR DISKUS) 250-50 mcg/dose inhaler INHALE 1 PUFF INSTRUCTED TWICE DAILY NEEDED (ASTHMA). 1 Each 5 No current facility-administered medications for this visit. ABDOMINAL AORTIC ANEURYSM SCREENING Never done SPIROMETRY Never done ALPHA-1 ANTITRYPSIN DEFICIENCY SCREENING Never done EXAM: BP 104/70 Pulse 68 Resp 16 Wt 82.1 kg (181 lb) SpO2 100% BMI 25.24 kg/m Pleasant adult man in usual state, in no acute distress. Alert and oriented all spheres. Normal affect and cognition. Speech normal. No deficits to learning or comprehension. Some memory issues with details of medications. Mildly anxious. Skin warm, dry, pink to lips and nailbeds. Normal turgor. Respirations regular and unlabored. HEENT: NCAT. No scleral icterus or conjunctival injection. TM's clear. Nose and oropharynx free from injection or lesion. Oral membranes moist and pink. No cervical lymph nodes. Thyroid non-tender, no masses, or enlargement. Carotids pulses 2+/4+ without bruits. No JVD with HOB at 30 degrees. Chest is normal shape. Lungs are clear to all zavala with good air exchange through out. HRRR without murmur or gallop. No lifts, heaves, or rubs. Extrem: no clubbing or cyanosis. Edema: none. Extremities are warm and pink with prompt capillary refill. ASSESSMENT/PLAN: 1. Generalized anxiety disorder - ICD9: 300.02, ICD10: F41.1 (primary diagnosis) Need to discuss with as patient does not remember details of stopping medication. She is available after 2p - CONSULT TO PSYCHIATRY - CONSULT TO PRIMARY CARE BEHAVIORAL HEALTH ADULT 2. Test anxiety - ICD9: 300.09, ICD10: F41.8 For MRI - LORAZEPAM 0.5 MG TABLET 3. Obsessive-compulsive disorder, unspecified type - ICD9: 300.3, ICD10: F42.9 - CONSULT TO PSYCHIATRY - CONSULT TO PRIMARY [facility]ARE [facility]AL [facility] ADULT 4. Visual hallucinations - ICD9: 368.16, ICD10: R44.1 MRI pending. - CONSULT TO PSYCHIATRY - CONSULT TO PRIMARY CARE BEHAVIORAL HE[facility] ADULT Elif Mckinley PA-C documented in this encounter [facility] 09-24-2022 Miscellaneous Notes According to OV notes, patient is being referred to see Dr. Delgado for shoulder replacement. I spoke with and she was transferred to schedule appointment. Patient's , Marilynn, called. Verified name and date of of patient. Patient was seen yesterday by Dr. Barber. Per Marilynn she is calling to verify they did not miss a step as they have not received a call yet to have her scheduled for surgery. Lis Wells LPN documented in this encounter [facility] 09-23-2022 History of Present illness Narrative Sharan Barber MD Department of Orthopaedics Orthopaedics [address] [facility] [address] Dept: [phone] Dept September 23, 2022 CHIEF COMPLAINT: New and Pain of the Left Shoulder HPI Patient here today for left shoulder pain x 1 week. States he caught the shoulder on a post [place] [employer]. He saw primary care 2 days ago and started on prednisone. He reports the prednisone does help. He is right hand dominant. 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 X-ray at [facility] on 09/21/2022. ASSESSMENT: M75.102 Nontraumatic tear of left rotator cuff, unspecified tear extent (primary encounter diagnosis) M25.512 Acute pain of left shoulder M19.212 Other secondary osteoarthritis of left shoulder PLAN: \He has a long history with this left shoulder and chronic rotator cuff insufficiency status post 2 prior attempts with surgery. He has Soothol paralysis of the shoulder. He is quite active and I think would be an excellent candidate for a reverse shoulder replacement, though I will have him discuss things further with FOLLOW UP INSTRUCTIONS: As above Mr. Gaston Lainez was advised as to contrast therapies and/or to take analgesics/anti-inflammatories as needed and all contraindications were reviewed. OBJECTIVE: Mr. Gaston Lainez is a pleasant 71 year old in no apparent distress. Gen:There were no vitals taken for this visit. nl development, non obese, no deformities ENT: Normocephalic, normal hearing, moist mucosa CV: Pulses:Radial= 2+ and symmetric, capillary refill < 2 secs, no peripheral edema/varicosities Skin: no rash, bruising or lesions. Good turgor. Psych: cooperative and appropriate, alert and oriented x 3, good mood and affect. Musculoskeletal: Pain and difficulty with forward elevation to even 80 degrees or so. Passive forward elevation of 150. Neurovascular exam intact. IMAGING: IMPRESSION: Degenerative changes as described. Linux Admin: AMILCAR Transcribe Date/Time: Sep 22 2022 10:59A Dictated by : SONYA MATTHEWS MD This examination was interpreted and the report reviewed and electronically signed by: SONYA MATTHEWS MD on Sep 22 2022 11:00AM EST Results-Findings * * *Final Report* * * DATE OF EXAM: Sep 21 2022 10:02AM WOX [id number] - XR SHLDR >/=3V AP/BEST AP/OTHR LT / PROCEDURE REASON: Acute pain of left shoulder * * * * Physician Interpretation * * * * TITLE: XR SHLDR >/=3V AP/BEST AP/OTHR LT CLINICAL INDICATION: Shoulder pain TECHNIQUE: 3 view radiographic study of the left shoulder COMPARISON: Radiograph dated July 28, 2018 FINDINGS: No acute fracture or dislocation identified. Mild to moderate glenohumeral joint space narrowing with subchondral sclerosis and small marginal osteophyte formation. Subchondral cystic change within the greater tuberosity. Mild hypertrophic change about the greater tuberosity. Supporting Subjective Information Below: Past Medical History: PAST MEDICAL HISTORY Diagnosis Date Abnormal stress echocardiogram 01/14/2021 01/21/[address] Barragan: right dominant. LMT min luminal, LAD mild diffuse, LCx mild luminal with large caliber nondominant vessel extending into a single large obtuse marginal branch, proximal vessel is mildly calcified +mild luminal irreg, RCA 40% Large-caliber dominant vessel: moderate calcification from the proximal to mid vessel, mild diffuse ectatic disease proximal.The ostium of the Anxiety state, unspecified 10/24/2007 Benign paroxysmal positional vertigo one remote episode Bunion Chronic obstructive asthma, unspecified 10/24/2007 Depression likely bipolar disorder Depressive disorder, not elsewhere classified 10/24/2007 Generalized anxiety disorder 10/24/2007 History of marijuana use 03/02/2016 Quit 08/2015 Hypermobility syndrome Mild coronary artery disease Mixed hyperlipidemia 11/27/2008 Nontraumatic rupture of tendons of biceps (long head) R, 10/07 L OCD (obsessive compulsive disorder) Pneumonia, organism unspecified(486) 11/2001 bilateral: cleared Primary insomnia 03/02/2016 Past Surgical History: PAST SURGICAL HISTORY Procedure Laterality Date COLONOSCOPY FLX DX W/COLLJ SPEC WHEN PFRMD 09/21/2006 repeat due 2016 COLONOSCOPY FLX DX W/COLLJ SPEC WHEN PFRMD 04/22/2020 Colonoscopy COLSC FLX W/RMVL OF TUMOR POLYP LESION SNARE TQ 04/19/2017 2 adenomatous polyps - ESOPHAGOGASTRODUODENOSCOPY TRANSORAL DIAGNOSTIC 07/23/2019 EGD EXCISION OF BENIGN LESION GREATER THAN 1.25 CM 03/29/2000 tongue and lip lesions: fibroma; nose: sebaceous hyperplasia PAST SURGICAL HISTORY OF repair flexor tendon left thumb PAST SURGICAL HISTORY OF Left 09/03/2019 Dr. medina [facility]: left CTR and tenosynovectomy at wrist level PAST SURGICAL HISTORY OF Left 04/29/2021 Left median nerve release at the elbow and forearm, Dontae Medina MD, [facility] ROTATOR CUFF REPAIR 2008 left ROTATOR CUFF REPAIR 04/22/2016 right VASECTOMY UNI/BI SPX W/POSTOP SEMEN EXAMS Family History: FAMILY HISTORY Problem Relation Age of Onset Heart Mother age 66, [place], SLE other (lupus) Mother diagnosed age 49 Heart Father age 84, CHF other (G6PD) Sister G6PD Diabetes Brother 1/2 brother Hypertension Brother 1/2 brother Colon Cancer Brother rectal cancer? 1/2 brother Social History: Social History Tobacco Use Smoking status: Former Packs/day: 0.50 Years: 9.00 Pack years: 4.50 Types: Cigarettes Quit date: 10/31/1976 Years since quittin.9 Smokeless tobacco: Never Vaping Use Vaping Use: Never used Substance Use Topics Alcohol use: Yes Alcohol/week: 20.0 standard drinks Types: 7 Glasses of Wine (5oz), 1 Cans of Beer (12oz) per week Comment: one-two drinks per day Drug use: Not Currently Comment: marijuana use, has used inhalants Medications: Current Outpatient Medications Medication Sig predniSONE (DELTASONE) 20 mg tablet Take 2 tablets by mouth once daily. Tadalafil (CIALIS) 10 mg tablet 1-2 tabs daily as needed QUEtiapine (SEROQUEL) 25 mg tablet TAKE 1-2 TABS BEFORE BED FOR INSOMNIA NEEDED. tamsulosin (FLOMAX) 0.4 mg Take 1 capsule by mouth daily at bedtime. atorvastatin (LIPITOR) 20 mg tablet TAKE 1 TABLET BY MOUTH EVERY DAY metoprolol succinate ER (TOPROL XL) 25 mg 24 hr tablet TAKE 1 TABLET BY MOUTH EVERY DAY polyethylene glycol 3350 (MIRALAX) 17 gram/dose powder 17g (1 scoop) with 8 oz daily as needed for constipation fluticasone-salmeterol (ADVAIR DISKUS) 250-50 mcg/dose inhaler INHALE 1 PUFF INSTRUCTED TWICE DAILY NEEDED (ASTHMA). albuterol HFA (VENTOLIN HFA) 90 mcg/actuation inhaler Inhale 2 Puffs as instructed every 4 hours as needed for wheezing/shortness of breath. nitroglycerin sublingual (NITROQUICK) 0.4 mg SL tablet Dissolve 1 tablet under the tongue every 5 minutes as needed for Chest Pain. No current facility-administered medications for this visit. Allergies: Patient has no known allergies. ROS: General (negative for fatigue, malaise, weight loss/gain) HEENT (negative for headache, earache, recent vision changes, sinus pain, sore throat) Respiratory (no recent shortness of breath, hemoptysis) CV (negative for chest tightness, palpitations) Musculoskeletal (see HPI) Psych (no depression, anxiety) REFERRING PHYSICIAN: Consultation requested by Marah Valdovinos for an opinion regarding left shoulder. My final recommendations will be communicated back to the requesting physician by way of shared Medical record or letter to requesting physician via US mail. Marah Valdovinos [address] [facility] [address] Elif Mckinley PA-C [address] [facility] [id number] Sharan Barber MD documented in this encounter [facility] 09-22-2022 Miscellaneous Notes Pt notified. He verbalized understanding. Mauricio Ralph LPN I went ahead and resent another script to the pharmacy for the pre-MRI medication. Francisco is out this week. I would suggest that we get Gaston set up for another appt with Francisco next week to further discuss medication management. Please help schedule. Marah Valdovinos APRN.JUSTICE , Marilynn, phoned to report to pcp- she doesn't think the paroxetine is working. Patient still races- not sleeping, talks nonstop, twitches, states his heart rate is fast. Asking if patient can try one of the first 2 medications he tried, prior to paroxetine. Reports patient stopped those b/c problem with erectile dysfunction, but that is no longer a problem. reports since it's no longer a problem, medication must not have been the cause. Also wants pcp to know patient tore out his shoulder this week. Has appt with Ortho tomorrow. Reports patient is scheduled for MRI brain on 09-30. She did garbage pick up man RX's from pharmacy. One was for 2 pills and on the bottle she read addictive so she threw them away. Now she realizes the 2 pills were nerve pills to keep him calm during MRI. Asking if provider can send Rx for these 2 pills, again to [facility]? Do not see anywhere on patient's chart that we can share information with and did not. Noted paroxetine was d/c'd by pcp on 09-06-22, and cialis was ordered same day. documented in this encounter [facility] 09-21-2022 History of Present illness Narrative Radiology Service Progress Note PATIENT NAME: Gaston Lainez DATE OF SERVICE: September 21, 2022 TIME: 10:01 AM PATIENT IDENTITY VERIFICATION COMPLETED USING TWO (2) IDENTIFIERS: Name and Date of confirmed by patient verbally. FALL SCREENING: Has the patient had 2 falls in the last year or 1 fall with injury or currently using an Ambulatory Assistive Device (Walker, Cane, Wheelchair, Crutches, etc.)? No PATIENT GENDER DATA: Male PATIENT RELEVANT IMPLANT DATA REVIEWED: Not Applicable RADIOLOGY DEPARTMENT: General X-ray: Exam(s) Completed: Upper Extremity X-Ray(s): Shoulder, AP / TRUE AP / SUPRA OUTLET left PERIPHERAL IV DATA: Not applicable SIGNED BY: RT Bryce(R) September 21, 2022 10:01 AM documented in this encounter [facility] 09-21-2022 Instructions Marah Valdovinos APRN.CNP - 09/21/2022 9:47 AM EST Start the prednisone -- 2 pills daily X 5 days. Get the xray. Schedule with ortho. 4. Shoulder exercise documented in this encounter [facility] 09-21-2022 History of Present illness Narrative This is a 71 year old male who presents today with: Patient presents with: Pain (Shoulder Pain): L shoulder pain after running into post at gas station yesterday; hx of rotator cuff surgery x2 on that shoulder HISTORY OF PRESENT ILLNESS: Gaston Lainez is a 71 year old male. Patient presents with: Pain (Shoulder Pain): L shoulder pain after running into post at gas station yesterday; hx of rotator cuff surgery x2 on that shoulder Pt presents today with complaint of left shoulder pain. Refers that he ran into a pole at the gas station. Refers that he hit the pole with his left shoulder and it spun him to the side. No fall. No bruising. Refers that he new nearly immediately that he injured the shoulder. Refers that a little bit of tingling right where it hit the shoulder. (Not the arm). Refers that he has had two previous rotator cuff surgeries on the shoulder. Last one was 2-3 years ago -- [facility]. Refers ROM is limited. Refers that he took something for pain yesterday afternoon, but hasn't taken anything since. PAST MEDICAL HISTORY: PAST MEDICAL HISTORY Diagnosis Date Abnormal stress echocardiogram 01/14/2021 01/21/[address] Barragan: right dominant. LMT min luminal, LAD mild diffuse, LCx mild luminal with large caliber nondominant vessel extending into a single large obtuse marginal branch, proximal vessel is mildly calcified +mild luminal irreg, RCA 40% Large-caliber dominant vessel: moderate calcification from the proximal to mid vessel, mild diffuse ectatic disease proximal.The ostium of the Anxiety state, unspecified 10/24/2007 Benign paroxysmal positional vertigo one remote episode Bunion Chronic obstructive asthma, unspecified 10/24/2007 Depression likely bipolar disorder Depressive disorder, not elsewhere classified 10/24/2007 Generalized anxiety disorder 10/24/2007 History of marijuana use 03/02/2016 Quit 08/2015 Hypermobility syndrome Mild coronary artery disease Mixed hyperlipidemia 11/27/2008 Nontraumatic rupture of tendons of biceps (long head) R, 2/09 L OCD (obsessive compulsive disorder) Pneumonia, organism unspecified(486) 11/2001 bilateral: cleared Primary insomnia 03/02/2016 PAST SURGICAL HISTORY Procedure Laterality Date COLONOSCOPY FLX DX W/COLLJ SPEC WHEN PFRMD 09/21/2006 repeat due 2017 COLONOSCOPY FLX DX W/COLLJ SPEC WHEN PFRMD 04/22/2020 Colonoscopy COLSC FLX W/RMVL OF TUMOR POLYP LESION SNARE TQ 04/19/2017 2 adenomatous polyps - ESOPHAGOGASTRODUODENOSCOPY TRANSORAL DIAGNOSTIC 07/23/2019 EGD EXCISION OF BENIGN LESION GREATER THAN 1.25 CM 03/29/2000 tongue and lip lesions: fibroma; nose: sebaceous hyperplasia PAST SURGICAL HISTORY OF repair flexor tendon left thumb PAST SURGICAL HISTORY OF Left 09/03/2019 Dr. tiffany [facility]: left CTR and tenosynovectomy at wrist level PAST SURGICAL HISTORY OF Left 04/29/2021 Left median nerve release at the elbow and forearm, Dontae Medina MD, [facility] ROTATOR CUFF REPAIR 2008 left ROTATOR CUFF REPAIR 04/22/2016 right VASECTOMY UNI/BI SPX W/POSTOP SEMEN EXAMS ALLERGIES Patient has no known allergies. MEDICATIONS Current Outpatient Medications Medication Sig Tadalafil (CIALIS) 10 mg tablet 1-2 tabs daily as needed QUEtiapine (SEROQUEL) 25 mg tablet TAKE 1-2 TABS BEFORE BED FOR INSOMNIA NEEDED. tamsulosin (FLOMAX) 0.4 mg Take 1 capsule by mouth daily at bedtime. atorvastatin (LIPITOR) 20 mg tablet TAKE 1 TABLET BY MOUTH EVERY DAY metoprolol succinate ER (TOPROL XL) 25 mg 24 hr tablet TAKE 1 TABLET BY MOUTH EVERY DAY polyethylene glycol 3350 (MIRALAX) 17 gram/dose powder 17g (1 scoop) with 8 oz daily as needed for constipation fluticasone-salmeterol (ADVAIR DISKUS) 250-50 mcg/dose inhaler INHALE 1 PUFF INSTRUCTED TWICE DAILY NEEDED (ASTHMA). albuterol HFA (VENTOLIN HFA) 90 mcg/actuation inhaler Inhale 2 Puffs as instructed every 4 hours as needed for wheezing/shortness of breath. nitroglycerin sublingual (NITROQUICK) 0.4 mg SL tablet Dissolve 1 tablet under the tongue every 5 minutes as needed for Chest Pain. No current facility-administered medications for this visit. FAMILY HISTORY Problem Relation Age of Onset Heart Mother age 66, [place], SLE other (lupus) Mother diagnosed age 49 Heart Father age 84, CHF other (G6PD) Sister G6PD Diabetes Brother 1/2 brother Hypertension Brother 1/2 brother Colon Cancer Brother rectal cancer? 1/2 brother Social History Tobacco Use Smoking status: Former Packs/day: 0.50 Years: 9.00 Pack years: 4.50 Types: Cigarettes Quit date: 10/31/1976 Years since quittin.9 Smokeless tobacco: Never Substance Use Topics Alcohol use: Yes Alcohol/week: 20.0 standard drinks Types: 7 Glasses of Wine (5oz), 1 Cans of Beer (12oz) per week Comment: one-two drinks per day Drug use: Not Currently Comment: marijuana use, has used inhalants EXAM: BP 130/84 Pulse 71 Resp 18 SpO2 91% PHYSICAL EXAM: General Appearance: Well appearing, alert, in no acute distress, well-hydrated, well nourished.. Skin: Skin color, texture, turgor normal, no suspicious rashes or lesions. Head: Normocephalic, no masses, lesions, tenderness or abnormalities. Eyes: Anicteric sclera. Pupils are equally round and reactive to light. Extraocular movements are intact. Extremities: No deformities, edema, skin discoloration, clubbing or cyanosis. Good capillary refill. Neurologic: Gait normal. Shoulder : Location: left anterior shoulder Redness: no Warmth: no Tenderness to palpation: yes Swelling: no Range of motion: very limited ROM. Unable to flex or abduct to 90 degrees. Empty can test: unable to lift arm high enough to complete. ASSESSMENT/PLAN: 1. Acute pain of left shoulder - ICD9: 719.41, ICD10: M25.512 - PREDNISONE 20 MG TABLET - XR SHOULDER GENERAL 3V OR MORE AP/TRUE AP/OTHER LEFT - CONSULT TO ORTHOPAEDICS Prednisone burst. Discussed ice to the shoulder. Exercises reviewed. Discussed treatment plan and patient voices understanding. Patient's questions answered appropriately. Medications and potential side effects were discussed and patient voices understanding. Return to the office as scheduled or as needed for worsening/no improvement. Marah Valdovinos APRN.PROMOTIONS REPRESENTATIVE documented in this encounter [facility] 09-06-2022 Instructions M Jimmie Mckinley PA-C - 09/06/2022 12:19 PM EST Tadalafil (Patient Education - Adult Medication) You must carefully read the Consumer Information Use and Disclaimer below in order to understand and correctly use this information Pronunciation (capo DA glenna ochoa) Brand Names: USAdcirca; Alyq; Cialis Brand Names: [place]ACT Tadalafil [DSC]; Adcirca; APO-Tadalafil; APO-Tadalafil PAH; Auro-Tadalafil; Cialis; JAMP-Tadalafil; Mar-Tadalafil; MINT-Tadalafil; MYLAN-Tadalafil; PMS-Tadalafil; Priva-Tadalafil; RAN-Tadalafil; SAÚL-Tadalafil; TEVA-Tadalafil What is this drug used for? It is used to treat erectile dysfunction (ED). In men, it is used to treat the signs of an enlarged prostate. It is used to treat raised pressure in the lungs. It may be given to you for other reasons. Talk with the doctor. What do I need to tell my doctor BEFORE I take this drug? For all uses of this drug: If you are allergic to this drug; any part of this drug; or any other drugs, foods, or substances. Tell your doctor about the allergy and what signs you had. If you have any of these health problems: Kidney disease or liver disease. If you have certain hereditary eye problems like retinitis pigmentosa. If you have a health problem called pulmonary veno-occlusive disease (PVOD). If you have a certain type of chest pain (unstable angina). If you have any of these health problems: Heart attack within the last 90 days, chest pain during sex, heart failure, a heartbeat that is not normal, high or low blood pressure, or a stroke within the last 6 months. If you use drugs called poppers like amyl nitrite and butyl nitrite. If you are taking any of these drugs: Isosorbide dinitrate, isosorbide mononitrate, nitroglycerin, riociguat, or ritonavir. If you are taking any of these drugs: Itraconazole or ketoconazole. If you are taking rifampin. If you are taking another drug that has the same drug in it. If you are taking another drug like this one that is used to treat erectile dysfunction (ED) or high pressure in the lungs. If you are taking any of these drugs: Alfuzosin, doxazosin, prazosin, silodosin, tamsulosin, or terazosin. If the patient is a child. This drug is not approved for use in children. For erectile dysfunction (ED): If you have been told that you are not healthy enough to have sex. This is not a list of all drugs or health problems that interact with this drug. Tell your doctor and pharmacist about all of your drugs (prescription or OTC, natural products, vitamins) and health problems. You must check to make sure that it is safe for you to take this drug with all of your drugs and health problems. Do not start, stop, or change the dose of any drug without checking with your doctor. What are some things I need to know or do while I take this drug? For all uses of this drug: Tell all of your health care providers that you take this drug. This includes your doctors, nurses, pharmacists, and dentists. Avoid driving and doing other tasks or actions that call for you to be alert until you see how this drug affects you. To lower the chance of feeling dizzy or passing out, rise slowly if you have been sitting or lying down. Be careful going up and down stairs. Talk with your doctor before you drink alcohol. If you drink grapefruit juice or eat grapefruit often, talk with your doctor. Very bad and sometimes deadly side effects like a heartbeat that does not feel normal, heart attack, stroke, and very bad high blood pressure have happened with this drug. Talk with the doctor. A very bad eye problem has rarely happened with this drug. This may lead to a change in eyesight and sometimes loss of eyesight, which may not come back. Talk with the doctor. If you have bleeding problems, talk with your doctor. If you are 65 or older, use this drug with care. You could have more side effects. High pressure in the lungs: Tell your doctor if you are , plan on getting , or are breast-feeding. You will need to talk about the benefits and risks to you and the baby. For other reasons: This drug is not approved for use in women. If you are a woman using this drug, talk with your doctor if you are , plan on getting , or are breast-feeding. For erectile dysfunction (ED): This drug does not stop the spread of diseases like HIV or hepatitis that are passed through having sex. Do not have any kind of sex without using a latex or polyurethane condom. If you have questions, talk with your doctor. What are some side effects that I need to call my doctor about right away? WARNING/CAUTION: Even though it may be rare, some people may have very bad and sometimes deadly side effects when taking a drug. Tell your doctor or get medical help right away if you have any of the following signs or symptoms that may be related to a very bad side effect: Signs of an allergic reaction, like rash; hives; itching; red, swollen, blistered, or peeling skin with or without fever; wheezing; tightness in the chest or throat; trouble breathing, swallowing, or talking; unusual hoarseness; or swelling of the mouth, face, lips, tongue, or throat. Chest pain or pressure. Fast or abnormal heartbeat. Dizziness or passing out. Very bad headache. Weakness on 1 side of the body, trouble speaking or thinking, change in balance, drooping on one side of the face, or blurred eyesight. Change in eyesight. Loss of eyesight. Ringing in the ears, hearing loss, or any other changes in hearing. Call your doctor right away if you have a painful erection (hard penis) or an erection that lasts for longer than 4 hours. This may happen even when you are not having sex. If this is not treated right away, it may lead to lasting sex problems and you may not be able to have sex. What are some other side effects of this drug? All drugs may cause side effects. However, many people have no side effects or only have minor side effects. Call your doctor or get medical help if any of these side effects or any other side effects bother you or do not go away: For all uses of this drug: Flushing. Headache. Back pain. Muscle pain. Upset stomach. Nose or throat irritation. Signs of a common cold. High pressure in the lungs: Pain in arms or legs. These are not all of the side effects that may occur. If you have questions about side effects, call your doctor. Call your doctor for medical advice about side effects. You may report side effects to your national health agency. How is this drug best taken? Use this drug as ordered by your doctor. Read all information given to you. Follow all instructions closely. High pressure in the lungs: Take with or without food. Take this drug at the same time of day. Keep taking this drug as you have been told by your doctor or other health care provider, even if you feel well. For other reasons: Take with or without food. Do not split or break tablet. What do I do if I miss a dose? High pressure in the lungs: Take a missed dose as soon as you think about it. If it is close to the time for your next dose, skip the missed dose and go back to your normal time. Do not take 2 doses at the same time or extra doses. For other reasons: For daily use: Take a missed dose as soon as you think about it. If it is close to the time for your next dose, skip the missed dose and go back to your normal time. Do not take 2 doses at the same time or extra doses. Many times this drug is used on an as needed basis. Do not use more often than told by the doctor. How do I store and/or throw out this drug? Store at room temperature in a dry place. Do not store in a bathroom. Keep all drugs in a safe place. Keep all drugs out of the reach of children and pets. Throw away unused or drugs. Do not flush down a toilet or pour down a drain unless you are told to do so. Check with your pharmacist if you have questions about the best way to throw out drugs. There may be drug take-back programs in your area. General drug facts If your symptoms or health problems do not get better or if they become worse, call your doctor. Do not share your drugs with others and do not take anyone else's drugs. Some drugs may have another patient information leaflet. If you have any questions about this drug, please talk with your doctor, nurse, pharmacist, or other health care provider. If you think there has been an overdose, call your poison control center or get medical care right away. Be ready to tell or show what was taken, how much, and when it happened. Last Reviewed Date 2019-09-25 documented in this encounter [facility] 09-06-2022 History of Present illness Narrative 71 year old male with c/o feels anxiety is worse. Mentions unable to get erection, like pulling a rope. Hallucinating but nothing violent: at night sees people come in and sit down beside him on the bed, reaches out to them and they disappear. Anxiety level: has been really good. Has cut back on alcohol: four fingers of wine daily. Stopped going to bar since prior to gi. Marijuana: none. Dizziness resolved with procedure ENT Feels like getting stronger. HISTORIES FAMILY HISTORY Problem Relation Age of Onset Heart Mother age 66, CA, SLE other (lupus) Mother diagnosed age 49 Heart Father age 84, CHF other (G6PD) Sister G6PD Diabetes Brother 1/2 brother Hypertension Brother 1/2 brother Colon Cancer Brother rectal cancer? 1/2 brother PAST MEDICAL HISTORY Diagnosis Date Abnormal stress echocardiogram 01/14/2021 01/21/[address] Barragan: right dominant. LMT min luminal, LAD mild diffuse, LCx mild luminal with large caliber nondominant vessel extending into a single large obtuse marginal branch, proximal vessel is mildly calcified +mild luminal irreg, RCA 40% Large-caliber dominant vessel: moderate calcification from the proximal to mid vessel, mild diffuse ectatic disease proximal.The ostium of the Anxiety state, unspecified 10/24/2007 Benign paroxysmal positional vertigo one remote episode Bunion Chronic obstructive asthma, unspecified 10/24/2007 Depression likely bipolar disorder Depressive disorder, not elsewhere classified 10/24/2007 Generalized anxiety disorder 10/24/2007 History of marijuana use 03/02/2016 Quit 08/2015 Hypermobility syndrome Mild coronary artery disease Mixed hyperlipidemia 11/27/2008 Nontraumatic rupture of tendons of biceps (long head) R, 10/07 L OCD (obsessive compulsive disorder) Pneumonia, organism unspecified(486) 11/2001 bilateral: cleared Primary insomnia 03/02/2016 PAST SURGICAL HISTORY Procedure Laterality Date COLONOSCOPY FLX DX W/COLLJ SPEC WHEN PFRMD 09/21/2006 repeat due 2016 COLONOSCOPY FLX DX W/COLLJ SPEC WHEN PFRMD 04/22/2020 Colonoscopy COLSC FLX W/RMVL OF TUMOR POLYP LESION SNARE TQ 04/19/2017 2 adenomatous polyps - ESOPHAGOGASTRODUODENOSCOPY TRANSORAL DIAGNOSTIC 07/23/2019 EGD EXCISION OF BENIGN LESION GREATER THAN 1.25 CM 03/29/2000 tongue and lip lesions: fibroma; nose: sebaceous hyperplasia PAST SURGICAL HISTORY OF repair flexor tendon left thumb PAST SURGICAL HISTORY OF Left 09/03/2019 Dr. medina [facility]: left CTR and tenosynovectomy at wrist level PAST SURGICAL HISTORY OF Left 04/29/2021 Left median nerve release at the elbow and forearm, Dontae Medina MD, [facility] ROTATOR CUFF REPAIR 2008 left ROTATOR CUFF REPAIR 04/22/2016 right VASECTOMY UNI/BI SPX W/POSTOP SEMEN EXAMS Social History Tobacco Use Smoking status: Former Packs/day: 0.50 Years: 9.00 Pack years: 4.50 Types: Cigarettes Quit date: 10/31/1976 Years since quittin.8 Smokeless tobacco: Never Substance Use Topics Alcohol use: Yes Alcohol/week: 20.0 standard drinks Types: 7 Glasses of Wine (5oz), 1 Cans of Beer (12oz) per week Comment: one-two drinks per day Drug use: Not Currently Comment: marijuana use, has used inhalants ACTIVE PROBLEM LIST Hypermobility Syndrome Bunion Copd, Mild (Hcc) Minor Depression Generalized anxiety disorder Mixed Hyperlipidemia Ocd (Obsessive Compulsive Disorder) Disorder of prostate Primary Insomnia History of Marijuana Use Well Adult Exam Incomplete Tear of Left Rotator Cuff Arthritis, Lumbar Spine Radicular Pain of Left Lower Extremity Acute Midline Low Back Pain With Left-Sided Sciatica Screening for Colon Cancer Colon Cancer Screening Tubular Adenoma of Colon Vertigo Neuralgic Amyotrophy of Left Brachial Plexus Fh: Prostate Cancer Sob (Shortness of Breath) Coronary Artery Disease of [place] Artery of [place] Heart With Stable Angina Pectoris (Hcc) H/O Cardiac Catheterization Palpitations Svt (Supraventricular Tachycardia) ([facility]) Bph With Obstruction/Lower Urinary Tract Symptoms Current Outpatient Medications Medication Sig Dispense Refill PARoxetine (PAXIL) 20 mg tablet Take 1 tablet by mouth once daily. 30 tablet 2 QUEtiapine (SEROQUEL) 25 mg tablet TAKE 1-2 TABS BEFORE BED FOR INSOMNIA NEEDED. 60 tablet 2 tamsulosin (FLOMAX) 0.4 mg Take 1 capsule by mouth daily at bedtime. 30 capsule 5 atorvastatin (LIPITOR) 20 mg tablet TAKE 1 TABLET BY MOUTH EVERY DAY 90 tablet 3 metoprolol succinate ER (TOPROL XL) 25 mg 24 hr tablet TAKE 1 TABLET BY MOUTH EVERY DAY 90 tablet 3 fluticasone-salmeterol (ADVAIR DISKUS) 250-50 mcg/dose inhaler INHALE 1 PUFF INSTRUCTED TWICE DAILY NEEDED (ASTHMA). 1 Each 5 albuterol HFA (VENTOLIN HFA) 90 mcg/actuation inhaler Inhale 2 Puffs as instructed every 4 hours as needed for wheezing/shortness of breath. 1 Each 5 polyethylene glycol 3350 (MIRALAX) 17 gram/dose powder 17g (1 scoop) with 8 oz daily as needed for constipation 225 g 5 nitroglycerin sublingual (NITROQUICK) 0.4 mg SL tablet Dissolve 1 tablet under the tongue every 5 minutes as needed for Chest Pain. 1 Bottle of 25 0 No current facility-administered medications for this visit. ABDOMINAL AORTIC ANEURYSM SCREENING Never done SPIROMETRY Never done ALPHA-1 ANTITRYPSIN DEFICIENCY SCREENING Never done ADVANCE DIRECTIVE DISCUSSION due on 08/29/2022 EXAM: BP 120/78 Pulse 60 Resp 16 Wt 81.2 kg (179 lb) SpO2 98% BMI 24.97 kg/m Pleasant well appearing adult man in no acute distress. Alert and oriented all spheres. Normal affect and cognition. Speech normal. No deficits to learning or comprehension. Skin warm, dry, pink to lips and nailbeds. Normal turgor. Respirations regular and unlabored. HEENT: NCAT. No scleral icterus or conjunctival injection. TM's clear. Nose and oropharynx free from injection or lesion. Oral membranes moist and pink. No cervical lymph nodes. Thyroid non-tender, no masses, or enlargement. Carotids pulses 2+/4+ without bruits. Neck veins flat Chest is normal shape. Lungs are clear to all zavala with good air exchange through out. HRRR without murmur or gallop. No lifts, heaves, or rubs. Extrem: no clubbing or cyanosis. Edema: none. Extremities are warm and pink with prompt capillary refill. Neuro: CN 2-12 grossly intact. PERRLA. EOMI. Motor full upper and lower symmetric. Atrophic hands and LFA r/t CTS, RTS and surgeries. Sensory intact distally to light touch. DTR's 2/4+ symmetric biceps, triceps, brachioradialis, knee jerk, Achilles. Plantars down-going bilaterally. Cerebellar intact finger to nose, heel to mauro. Romberg negative, Gait and balance otherwise normal. States imbalance occurs with sudden moves and dizziness. ASSESSMENT/PLAN: 1. Screening for prostate cancer - ICD9: V76.44, ICD10: Z12.5 (primary diagnosis) - Counseled on healthy diet and regular exercise - PSA/PROSTSPECAG SCRN 2. Erectile dysfunction, unspecified erectile dysfunction type - ICD9: 607.84, ICD10: N52.9 Discussed options for urology consult for PA high frequency dopplar, lab eval. Wants to wait until next visit for some reason. Educated on new medication administration, warnings and cautions, common side effects, anticipated duration or therapy, and instructions on cessation management to avoid risks if stops medication. Patient choice was discussed in shared decision making. - TADALAFIL 10 MG TABLET 3. Visual hallucinations - ICD9: 368.16, ICD10: R44.1 Concerning for Lewy body, memory impairment, balance issues Vertigo resolved with ENT procedures - MRI BRAIN WO/W IVCON - IV CONTRAST (RADIOLOGY PROCEDURE) 4. Cognitive impairment, mild, so stated - ICD9: 331.83, ICD10: G31.84 - MRI BRAIN WO/W IVCON Needs open MRI. 5. Test anxiety - ICD9: 300.09, ICD10: F41.8 PROCEDURAL SEDATION - LORAZEPAM 0.5 MG TABLET F/u 3 months Francisco Mckinley PA-C documented in this encounter [facility] 08-02-2022 Miscellaneous Notes Patient has been notified of dosage change and is agreeable Let's try doubling the dose first. Let me know if anything worrisome is happening. The following approved medication requests have been transmitted electronically. Requested Prescriptions Signed Prescriptions Disp Refills PARoxetine (PAXIL) 20 mg tablet 30 tablet 2 Sig: Take 1 tablet by mouth once daily. Authorizing Provider: Elif MCKINLEY PA-C . Patient's spouse calling regarding the medication PARoxetine (PAXIL) 10 mg tablet. Spouse states that patient had tried the medication for about 1 month and the medication is not helping. Spouse is asking for a different medication to be called into the pharmacy ([facility]) documented in this encounter [facility] 07-08-2022 Miscellaneous Notes Spoke with pt's and information listed below given. Pt's verbalizes understanding. Veronica Chavez LPN Left message for Marilynn to contact office and speak with nurse. Can stop buspar. Trial Paxil 10mg daily F/u 4 weeks on progress The following approved medication requests have been transmitted electronically. Requested Prescriptions Signed Prescriptions Disp Refills PARoxetine (PAXIL) 10 mg tablet 30 tablet 2 Sig: Take 1 tablet by mouth once daily. Authorizing Provider: Elif MCKINLEY PA-C Patient's Marilynn calling to give Francisco Mckinley an update on patient-she reports Francisco requested she call with pt update after last OV. states pt takes buspar and seroquel and it was recommended that pt try taking two buspar tabs in the morning and two at night instead of one three times daily. states the two tabs before bedtime gave pt nightmares, so pt currently takes two tabs during day and one before bedtime. states overall, the medications are just not working for the pt. Please advise Marilynn. Thank you. documented in this encounter [facility] 06-07-2022 Instructions Elif Mckinley PA-C - 06/07/2022 8:39 AM EDT Increase Buspar to 2 tabs twice a day = 10mg twice a day and let me know in a few weeks if this helps. documented in this encounter [facility] 06-07-2022 History of Present illness Narrative 71 year old male with c/o here for follow up Generalized anxiety disorder Minor depression Obsessive-compulsive disorder, unspecified type Primary insomnia Current medications: Seroquel 25mg 1-2 tabs HS as needed Buspirone 5mg three times daily Only taking Buspar twice a day- worked well at first but feels less effective currently Gets very anxious if anything gets out of his routine. Has some moments with remembering, thinks he hears a noise and gets anxious. No [place] at all in last 2 months. Marijuana: none Bph with obstruction/lower urinary tract symptoms Current medications: Tamsulosin 20mg daily HS Urine flow is great on medication Lost a friend to prostate cancer, 6 months Svt (supraventricular tachycardia) ([facility]) Mixed hyperlipidemia Cardiovascular interval hx: not having any problems 04/27/[address] Barragan- [facility] feels cholesterol need better control Current meds: Metoprolol succinate ER 25mg daily Atorvastatin 20mg daily Use of NTG: No Chest pain, arm, jaw pain, neck, or upper back pain suggestive of angina: No. SOB: No Dyspnea with exertion: No orthopnea: No racing or irregular heartbeats: No palpitations: Yes- very concerned this has re-occurred. EKG showed frequent PVCs syncopal sx: No Unexplainable fatigue No Leg swelling: No Nausea: No diaphoresis: No Heartburn: No Claudication: No Smoking: No Following Low cholesterol, high fiber diet? Yes If on statin: muscle aches? No If on statin: GI sx or diarrhea? No Additional history: Component Latest Ref Rng & Units 04/24/2021 11/17/2021 Cholesterol, Total <200 mg/dL 147 179 Triglyceride <150 mg/dL 30 40 HDL Cholesterol >39 mg/dL 88 87 LDL Cholesterol <100 mg/dL 53 84 Non HDL Cholesterol <130 mg/dL 59 92 Fasting Time hrs 12 15 VLDL Cholesterol <30 mg/dL 6 8 TC:HDL Ratio <5.10 1.67 2.06 LDL:HDL Ratio <2.54 0.60 0.97 Copd, mild ([facility]) Hereditary Cancer Program Coordinator: none. Interval history: no issues. Current medications: Fluticasone-salmeterol 250-50 mcg 1 puff twice daily: only does it once day Albuterol HFA 2 puffs q4h prn Worsening shortness of breath: No. Cough: No. Wheezing: No. Smoking: No. Compliant with medications: Yes. Using rescue inhaler: none. History of marijuana use: states using none Daily consumption of alcohol: states four fingers of wine on glass.No whiskey. HISTORIES FAMILY HISTORY Problem Relation Age of Onset Heart Mother age 66, [place], SLE other (lupus) Mother diagnosed age 49 Heart Father age 84, CHF other (G6PD) Sister G6PD Diabetes Brother 1/2 brother Hypertension Brother 1/2 brother Colon Cancer Brother rectal cancer? 1/2 brother PAST MEDICAL HISTORY Diagnosis Date Abnormal stress echocardiogram 01/14/2021 01/21/[address] Barragan: right dominant. LMT min luminal, LAD mild diffuse, LCx mild luminal with large caliber nondominant vessel extending into a single large obtuse marginal branch, proximal vessel is mildly calcified +mild luminal irreg, RCA 40% Large-caliber dominant vessel: moderate calcification from the proximal to mid vessel, mild diffuse ectatic disease proximal.The ostium of the Anxiety state, unspecified 10/24/2007 Benign paroxysmal positional vertigo one remote episode Bunion Chronic obstructive asthma, unspecified 10/24/2007 Depression likely bipolar disorder Depressive disorder, not elsewhere classified 10/24/2007 Generalized anxiety disorder 10/24/2007 History of marijuana use 03/02/2016 Quit 08/2015 Hypermobility syndrome Mild coronary artery disease Mixed hyperlipidemia 11/27/2008 Nontraumatic rupture of tendons of biceps (long head) R, / L OCD (obsessive compulsive disorder) Pneumonia, organism unspecified(486) 11/2001 bilateral: cleared Primary insomnia 03/02/2016 PAST SURGICAL HISTORY Procedure Laterality Date COLONOSCOPY FLX DX W/COLLJ SPEC WHEN PFRMD 09/21/2006 repeat due 2016 COLONOSCOPY FLX DX W/COLLJ SPEC WHEN PFRMD 04/22/2020 Colonoscopy COLSC FLX W/RMVL OF TUMOR POLYP LESION SNARE TQ 04/19/2017 2 adenomatous polyps - ESOPHAGOGASTRODUODENOSCOPY TRANSORAL DIAGNOSTIC 07/23/2019 EGD EXCISION OF BENIGN LESION GREATER THAN 1.25 CM 03/29/2000 tongue and lip lesions: fibroma; nose: sebaceous hyperplasia PAST SURGICAL HISTORY OF repair flexor tendon left thumb PAST SURGICAL HISTORY OF Left 09/03/2019 Dr. medina [facility]: left CTR and tenosynovectomy at wrist level PAST SURGICAL HISTORY OF Left 04/29/2021 Left median nerve release at the elbow and forearm, Dontae Medina MD, [facility] ROTATOR CUFF REPAIR 2009 left ROTATOR CUFF REPAIR 04/22/2016 right VASECTOMY UNI/BI SPX W/POSTOP SEMEN EXAMS Social History Tobacco Use Smoking status: Former Packs/day: 0.50 Years: 9.00 Pack years: 4.50 Types: Cigarettes Quit date: 10/31/1976 Years since quittin.6 Smokeless tobacco: Never Substance Use Topics Alcohol use: Yes Alcohol/week: 20.0 standard drinks Types: 7 Glasses of Wine (5oz), 1 Cans of Beer (12oz) per week Comment: one-two drinks per day Drug use: Not Currently Comment: marijuana use, has used inhalants ACTIVE PROBLEM LIST Hypermobility Syndrome Bunion Copd, Mild (Hcc) Minor Depression Generalized anxiety disorder Mixed Hyperlipidemia Ocd (Obsessive Compulsive Disorder) Disorder of prostate Primary Insomnia History of Marijuana Use Well Adult Exam Incomplete Tear of Left Rotator Cuff Arthritis, Lumbar Spine Radicular Pain of Left Lower Extremity Acute Midline Low Back Pain With Left-Sided Sciatica Screening for Colon Cancer Colon Cancer Screening Tubular Adenoma of Colon Vertigo Neuralgic Amyotrophy of Left Brachial Plexus Fh: Prostate Cancer Sob (Shortness of Breath) Coronary Artery Disease of [place] Artery of [place] Heart With Stable Angina Pectoris (Hcc) H/O Cardiac Catheterization Palpitations Svt (Supraventricular Tachycardia) ([facility]) Current Outpatient Medications Medication Sig Dispense Refill QUEtiapine (SEROQUEL) 25 mg tablet TAKE 1-2 TABS BEFORE BED FOR INSOMNIA NEEDED. 60 tablet 2 busPIRone (BUSPAR) 5 mg tablet Take 1 tablet by mouth three times daily. 90 tablet 2 tamsulosin (FLOMAX) 0.4 mg Take 1 capsule by mouth daily at bedtime. 30 capsule 5 atorvastatin (LIPITOR) 20 mg tablet TAKE 1 TABLET BY MOUTH EVERY DAY 90 tablet 3 metoprolol succinate ER (TOPROL XL) 25 mg 24 hr tablet TAKE 1 TABLET BY MOUTH EVERY DAY 90 tablet 3 polyethylene glycol 3350 (MIRALAX) 17 gram/dose powder 17g (1 scoop) with 8 oz daily as needed for constipation 225 g 5 fluticasone-salmeterol (ADVAIR DISKUS) 250-50 mcg/dose inhaler INHALE 1 PUFF INSTRUCTED TWICE DAILY NEEDED (ASTHMA). 1 Each 5 albuterol HFA (VENTOLIN HFA) 90 mcg/actuation inhaler Inhale 2 Puffs as instructed every 4 hours as needed for wheezing/shortness of breath. 1 Each 5 nitroglycerin sublingual (NITROQUICK) 0.4 mg SL tablet Dissolve 1 tablet under the tongue every 5 minutes as needed for Chest Pain. 1 Bottle of 25 0 No current facility-administered medications for this visit. ABDOMINAL AORTIC ANEURYSM SCREENING Never done SPIROMETRY Never done ALPHA-1 ANTITRYPSIN DEFICIENCY SCREENING Never done COVID-19 VACCINE(5 - Booster for Pfizer series) due on 04/15/2022 INFLUENZA(1) due on 04/29/2022 EXAM: BP 114/72 (BP Site: Right Arm, BP Position: Sitting, BP Cuff Size: Regular Adult) Pulse 64 Resp 16 Wt 81.1 kg (178 lb 12.8 oz) BMI 24.94 kg/m Pleasant well appearing, anxious older man in no acute distress. Alert and oriented all spheres. Usual affect and cognition. Speech normal. No deficits to learning or comprehension. Skin warm, dry, pink to lips and nailbeds. Normal turgor. Respirations regular and unlabored. HEENT: NCAT. No scleral icterus or conjunctival injection. TM's clear. Nose and oropharynx free from injection or lesion. Oral membranes moist and pink. No cervical lymph nodes. Thyroid non-tender, no masses, or enlargement. Carotids pulses 2+/4+ without bruits. No JVD with HOB at 30 degrees. Chest is normal shape. Lungs are clear to all zavala with good air exchange through out. HRRR without murmur or gallop. No lifts, heaves, or rubs. Extrem: no clubbing or cyanosis. Edema: none. Extremities are warm and pink with prompt capillary refill. ASSESSMENT/PLAN: 1. Generalized anxiety disorder - ICD9: 300.02, ICD10: F41.1 (primary diagnosis) Feels lessening control- seem to be worse in settings focusing on health care such as visits. - CBC + DIFF - COMP METABOLIC PANEL 2. Minor depression - ICD9: 311, ICD10: F32.A stable 3. Obsessive-compulsive disorder, unspecified type - ICD9: 300.3, ICD10: F42.9 Remains ritualistic within good boundaries - CBC + DIFF - COMP METABOLIC PANEL 4. BPH with obstruction/lower urinary tract symptoms - ICD9: 600.01, 599.69, ICD10: N40.1, N13.8 Controlled on medication 5. Primary insomnia - ICD9: 307.42, ICD10: F51.01 Stable 6. SVT (supraventricular tachycardia) (HCC) - ICD9: 427.89, ICD10: I47.1 Continues to have intermittent palpations, worst in cardiologists office. Very sparing at home. 7. Mixed hyperlipidemia - ICD9: 272.2, ICD10: E78.2 - good control - Continue current medication. 8. COPD, mild (HCC) - ICD9: 496, ICD10: J44.9 Stable on medication 9. History of marijuana use - ICD9: 305.23, ICD10: F12.91 Claims he has stopped 10. Daily consumption of alcohol - ICD9: V49.89, ICD10: Z78.9 Stopped whiskey, daily wine- will need to check with . 11. Hyperglycemia - ICD9: 790.29, ICD10: R73.9 Recheck prior to next visit - HGB A1C Elif Mckinley PA-C documented in this encounter [facility] 05-12-2022 Miscellaneous Notes Patient given results and verbalized understanding of instructions given. Raina Harrison Positive for COVID-negative for flu. Please instruct to quarantine for 5 days of start of symptoms then mask for another 5 days if symptoms are worsening please follow-up thank you documented in this encounter [facility] 05-11-2022 History of Present illness Narrative CC: Patient presents with: Nasal Congestion: headache, bodyaches, cough, sneezing x 3 days + home covid test HPI: Gaston Lainez is a 71 year old male who presents to the office with complaint of head congestion, cough, nonproductive, and rhinorrhea for a few days. Symptoms are staying the same. Associated symptoms includes sneezing. Denies headache, body aches, fever, nausea, vomiting , and diarrhea. Treatments tried include nothing so far. with no relief of symptoms. Sick contacts: unknown. History of asthma, frequent episodes of bronchitis, chronic bronchitis, bronchiectasis or COPD: No Smoker: No Seasonal/environmental allergies: No The ROS is otherwise negative. The patient's pmh, medications, allergies, and past visits are reviewed. PHYSICAL EXAM: BP 122/68 Pulse 70 Temp 36.8 C (98.3 F) Resp 16 Wt 81 kg (178 lb 9.6 oz) SpO2 96% BMI 24.91 kg/m General appearance: alert, cooperative, pleasant, in no acute distress Head: Normocephalic Eyes: EOM's intact, conjunctiva pink and moist, no icterus, sclera white, non-injected Ears: Right ear: External ear/canal- Normal, TM - clear with good landmarks. Left ear: External ear/canal- Normal, TM - clear with good landmarks Oropharynx:mild erythema, without exudates present Heart: Negative. RRR without obvious murmur, gallop, or rubs. No ectopy. Lungs: clear to auscultation, without rales or wheeze, good air exchange PAST MEDICAL HISTORY Diagnosis Date Abnormal stress echocardiogram 01/14/2021 01/21/[address] Barragan: right dominant. LMT min luminal, LAD mild diffuse, LCx mild luminal with large caliber nondominant vessel extending into a single large obtuse marginal branch, proximal vessel is mildly calcified +mild luminal irreg, RCA 40% Large-caliber dominant vessel: moderate calcification from the proximal to mid vessel, mild diffuse ectatic disease proximal.The ostium of the Anxiety state, unspecified 10/24/2007 Benign paroxysmal positional vertigo one remote episode Bunion Chronic obstructive asthma, unspecified 10/24/2007 Depression likely bipolar disorder Depressive disorder, not elsewhere classified 10/24/2007 Generalized anxiety disorder 10/24/2007 History of marijuana use 03/02/2016 Quit 08/2015 Hypermobility syndrome Mild coronary artery disease Mixed hyperlipidemia 11/27/2008 Nontraumatic rupture of tendons of biceps (long head) R, 2/09 L OCD (obsessive compulsive disorder) Pneumonia, organism unspecified(486) 11/2001 bilateral: cleared Primary insomnia 03/02/2016 PAST SURGICAL HISTORY Procedure Laterality Date COLONOSCOPY FLX DX W/COLLJ SPEC WHEN PFRMD 09/21/2006 repeat due 2017 COLONOSCOPY FLX DX W/COLLJ SPEC WHEN PFRMD 04/22/2020 Colonoscopy COLSC FLX W/RMVL OF TUMOR POLYP LESION SNARE TQ 04/19/2017 2 adenomatous polyps - ESOPHAGOGASTRODUODENOSCOPY TRANSORAL DIAGNOSTIC 07/23/2019 EGD EXCISION OF BENIGN LESION GREATER THAN 1.25 CM 03/29/2000 tongue and lip lesions: fibroma; nose: sebaceous hyperplasia PAST SURGICAL HISTORY OF repair flexor tendon left thumb PAST SURGICAL HISTORY OF Left 09/03/2019 Dr. medina [facility]: left CTR and tenosynovectomy at wrist level PAST SURGICAL HISTORY OF Left 04/29/2021 Left median nerve release at the elbow and forearm, Dontae Medina MD, [facility] ROTATOR CUFF REPAIR 2008 left ROTATOR CUFF REPAIR 04/22/2016 right VASECTOMY UNI/BI SPX W/POSTOP SEMEN EXAMS ALLERGIES Patient has no known allergies. MEDICATIONS tamsulosin (FLOMAX) 0.4 mg Take 1 capsule by mouth daily at bedtime. atorvastatin (LIPITOR) 20 mg tablet TAKE 1 TABLET BY MOUTH EVERY DAY metoprolol succinate ER (TOPROL XL) 25 mg 24 hr tablet TAKE 1 TABLET BY MOUTH EVERY DAY polyethylene glycol 3350 (MIRALAX) 17 gram/dose powder 17g (1 scoop) with 8 oz daily as needed for constipation QUEtiapine (SEROQUEL) 25 mg tablet TAKE 1-2 TABS BEFORE BED FOR INSOMNIA NEEDED. busPIRone (BUSPAR) 5 mg tablet Take 1 tablet by mouth three times daily. fluticasone-salmeterol (ADVAIR DISKUS) 250-50 mcg/dose inhaler INHALE 1 PUFF INSTRUCTED TWICE DAILY NEEDED (ASTHMA). albuterol HFA (VENTOLIN HFA) 90 mcg/actuation inhaler Inhale 2 Puffs as instructed every 4 hours as needed for wheezing/shortness of breath. nitroglycerin sublingual (NITROQUICK) 0.4 mg SL tablet Dissolve 1 tablet under the tongue every 5 minutes as needed for Chest Pain. FAMILY HISTORY Problem Relation Age of Onset Heart Mother age 66, [place], SLE other (lupus) Mother diagnosed age 49 Heart Father age 84, CHF other (G6PD) Sister G6PD Diabetes Brother 1/2 brother Hypertension Brother 1/2 brother Colon Cancer Brother rectal cancer? 1/2 brother Social History Tobacco Use Smoking status: Former Packs/day: 0.50 Years: 9.00 Pack years: 4.50 Types: Cigarettes Quit date: 10/31/1976 Years since quittin.5 Smokeless tobacco: Never Substance Use Topics Alcohol use: Yes Alcohol/week: 20.0 standard drinks Types: 7 Glasses of Wine (5oz), 1 Cans of Beer (12oz) per week Comment: one-two drinks per day Drug use: Not Currently Comment: marijuana use, has used inhalants ASSESSMENT/PLAN: 1. COVID - ICD9: 079.89, ICD10: U07.1 - COVID WITH FLUA+B, ROUTINE At this time patient was curious about antiviral medication educated patient that his nighttime medication would need adjusted and Lipitor needs stopped to take the medication. Patient is not sure he wants to do that at this time patient will think about it and contact PCP tomorrow if he changes his mind. Willi Church APRN.[employer]OTIONS REPRESENTATIVE Subjective HPI ROS Objective Physical Exam documented in this encounter [facility] 04-29-2022 Miscellaneous Notes Patient has been identified by name and date of : Yes Requested Prescriptions Pending Prescriptions Disp Refills tamsulosin (FLOMAX) 0.4 mg 30 capsule 5 Sig: Take 1 capsule by mouth daily at bedtime. THEA-03/05/22 Labs-11/17/21 NOV-06/07/22 med filled 10/09/21 RX INSTRUCTIONS: Patient aware RX will be sent to pharmacy. No need to notify patient. Gertrudis Cota Pss documented in this encounter [facility] 04-26-2022 Instructions Krunal Barragan MD - 04/26/2022 8:58 AM EDT Repeat fsting blood work in May. documented in this encounter [facility] 04-26-2022 History of Present illness Narrative Images from the original note were not included. [facility] SE[facility]IOLOGY Cardiology ([facility]) [address] [id number] OUTPATIENT VISIT DATE 04/24/2022 PRIMARY CARE PHYSICIAN: Elif Mckinley [address] [place] [address] HISTORY OF PRESENT ILLNESS: Mr. Lainez is a 71 year old gentleman who had a cardiac catheterization due to abnormal stress test and chest pain in December 2020. He was found to have diffuse calcified nonobstructive coronary disease. He is also treated for borderline hypertension and dyslipidemia. He presents the office for routine follow-up. Since, he tells me he has been extremely well. He exercises at a gym almost every day. He has had no decline in his functional capacity. He has had no symptoms concerning for CHF including PND, orthopnea, lower extremity edema. He continues to have occasional sharp stabbing feelings in the left side of his chest which are intermittent and lasts only a few seconds. They are not related to exertion. He has had no feelings of palpitations, lightheadedness, dizziness, or syncope. PAST MEDICAL HISTORY Diagnosis Date Abnormal stress echocardiogram 01/14/2021 01/21/[address] Barragan: right dominant. LMT min luminal, LAD mild diffuse, LCx mild luminal with large caliber nondominant vessel extending into a single large obtuse marginal branch, proximal vessel is mildly calcified +mild luminal irreg, RCA 40% Large-caliber dominant vessel: moderate calcification from the proximal to mid vessel, mild diffuse ectatic disease proximal.The ostium of the Anxiety state, unspecified 10/24/2007 Benign paroxysmal positional vertigo one remote episode Bunion Chronic obstructive asthma, unspecified 10/24/2007 Depression likely bipolar disorder Depressive disorder, not elsewhere classified 10/24/2007 Generalized anxiety disorder 10/24/2007 History of marijuana use 03/02/2016 Quit 08/2015 Hypermobility syndrome Mild coronary artery disease Mixed hyperlipidemia 11/27/2008 Nontraumatic rupture of tendons of biceps (long head) R, 10/07 L OCD (obsessive compulsive disorder) Pneumonia, organism unspecified(486) 11/2001 bilateral: cleared Primary insomnia 03/02/2016 PAST SURGICAL HISTORY Procedure Laterality Date COLONOSCOPY FLX DX W/COLLJ SPEC WHEN PFRMD 09/21/2006 repeat due 2016 COLONOSCOPY FLX DX W/COLLJ SPEC WHEN PFRMD 04/22/2020 Colonoscopy COLSC FLX W/RMVL OF TUMOR POLYP LESION SNARE TQ 04/19/2017 2 adenomatous polyps - ESOPHAGOGASTRODUODENOSCOPY TRANSORAL DIAGNOSTIC 07/23/2019 EGD EXCISION OF BENIGN LESION GREATER THAN 1.25 CM 03/29/2000 tongue and lip lesions: fibroma; nose: sebaceous hyperplasia PAST SURGICAL HISTORY OF repair flexor tendon left thumb PAST SURGICAL HISTORY OF Left 09/03/2019 Dr. medina [facility]: left CTR and tenosynovectomy at wrist level PAST SURGICAL HISTORY OF Left 04/29/2021 Left median nerve release at the elbow and forearm, Dontae Medina MD, [facility] ROTATOR CUFF REPAIR 2008 left ROTATOR CUFF REPAIR 04/22/2016 right VASECTOMY UNI/BI SPX W/POSTOP SEMEN EXAMS SOCIAL HISTORY Social History Tobacco Use Smoking status: Former Packs/day: 0.50 Years: 9.00 Pack years: 4.50 Types: Cigarettes Quit date: 10/31/1976 Years since quittin.5 Smokeless tobacco: Never Substance Use Topics Alcohol use: Yes Alcohol/week: 20.0 standard drinks Types: 7 Glasses of Wine (5oz), 1 Cans of Beer (12oz) per week Comment: one-two drinks per day Drug use: Not Currently Comment: marijuana use, has used inhalants FAMILY HISTORY Problem Relation Age of Onset Heart Mother age 66, [place], SLE other (lupus) Mother diagnosed age 49 Heart Father age 84, CHF other (G6PD) Sister G6PD Diabetes Brother 1/2 brother Hypertension Brother 1/2 brother Colon Cancer Brother rectal cancer? 1/2 brother ALLERGIES: ALLERGIES No Known Allergies MEDICATIONS: atorvastatin (LIPITOR) 20 mg tablet TAKE 1 TABLET BY MOUTH EVERY DAY metoprolol succinate ER (TOPROL XL) 25 mg 24 hr tablet TAKE 1 TABLET BY MOUTH EVERY DAY polyethylene glycol 3350 (MIRALAX) 17 gram/dose powder 17g (1 scoop) with 8 oz daily as needed for constipation QUEtiapine (SEROQUEL) 25 mg tablet TAKE 1-2 TABS BEFORE BED FOR INSOMNIA NEEDED. busPIRone (BUSPAR) 5 mg tablet Take 1 tablet by mouth three times daily. tamsulosin (FLOMAX) 0.4 mg Take 1 capsule by mouth daily at bedtime. fluticasone-salmeterol (ADVAIR DISKUS) 250-50 mcg/dose inhaler INHALE 1 PUFF INSTRUCTED TWICE DAILY NEEDED (ASTHMA). albuterol HFA (VENTOLIN HFA) 90 mcg/actuation inhaler Inhale 2 Puffs as instructed every 4 hours as needed for wheezing/shortness of breath. nitroglycerin sublingual (NITROQUICK) 0.4 mg SL tablet Dissolve 1 tablet under the tongue every 5 minutes as needed for Chest Pain. REVIEW OF SYSTEMS: Review of Systems Constitutional: Negative for chills, fever, malaise/fatigue and weight loss. HENT: Negative for hearing loss and sore throat. Eyes: Negative for blurred vision and double vision. Respiratory: Negative. Cardiovascular: Negative. Genitourinary: Negative for dysuria, frequency, hematuria and urgency. Musculoskeletal: Negative. Skin: Negative. Neurological: Negative for dizziness, seizures, loss of consciousness, weakness and headaches. Endo/Heme/Allergies: Negative for environmental allergies. Does not bruise/bleed easily. Psychiatric/Behavioral: Negative for depression. PHYSICAL EXAMINATION: BP 110/70 Pulse 66 Wt 176 lb (79.8kg) General: Very pleasant thin gentleman sitting appears comfortable no apparent distress. He is alert and oriented x3 HEENT: Carotid upstrokes are brisk bilaterally without bruits no JVD appreciated. Pulmonary: Lungs are clear no rales, wheezes, or rhonchi. Cardiovascular: Normal S1, S2 with regularly irregular rhythm. No murmurs, rubs, or gallops appreciated. Extremities: Warm, well-perfused, 2+ distal pulses. No lower extremity edema CARDIOVASCULAR MEDICINE TESTING: ECG in the office 04/26/2022: Normal sinus rhythm with frequent PVCs in the pattern of bigeminy. No significant ST or T wave changes Cardiac Catheterization 01/21/21: Hemodynamics: LVEDP: 16 mmHg LV - AORTA: No gradient. Coronary Angiography: Left Main: Large caliber vessel mild calcification of the distal vessel no significant obstructive disease Left Anterior Descending: Large caliber vessel. Moderate calcification in the proximal mid vessel. Mild diffuse disease noted in the proximal to mid vessel. Circumflex: Large caliber nondominant vessel extending into a single large obtuse marginal branch. The proximal vessel is mildly calcified. Mild luminal irregularities noted. Right Coronary Artery: Large-caliber dominant vessel. There is moderate calcification from the proximal to mid vessel. There is mild diffuse ectatic disease in the proximal vessel. The ostium of the PDA and posterior ventricular branches has diffuse 30 to 40% luminal stenosis. ECG in the office 01/15/2021: Normal sinus rhythm with frequent PACs and occasional PVCs Q waves noted in leads V1 and V2 consistent with possible septal infarct pattern. Nonspecific ST-T wave changes. Stress Echocardiogram 01/05/21 CONCLUSIONS: - Technically difficult exam due to body habitus and COPD. - Exam indication: Shortness of Breath - The exercise stress echo was positive for ischemia at 89 % of MPHR (8.1 METS). There is ischemia in the territory of the LAD. - The left ventricle is normal in size. Left ventricular systolic function is normal. EF = 57 5% (2D biplane) Grade I left ventricular diastolic dysfunction. - The right ventricle is normal in size. Right ventricular systolic function is normal. Stress ECG Conclusion: Conclusion: Normal with exception due to Low heart rate recovery, Frequent ventricular ectopy, Exercise systolic and diastolic HTN and Low chronotropic response index Stress ECG Summary: The patient's resting heart rate was 88 bpm and blood pressure was 140/90 mmHg. The patient exercised according to the Kirt protocol. Total exercise time was 8 minutes and 40 seconds. The test was terminated due to general fatigue. The maximum heart rate was 133 bpm, which is 89% predicted for age. METs achieved was 8.1. The double product achieved was [address]. Peak heart rate was 133 bpm and peak blood pressure was 150/94 mmHg. IMPRESSION: Mr. Lainez is a 71 year old gentleman with a history of mild diffuse nonobstructive coronary artery disease on cardiac catheterization December 2020, hypertension, dyslipidemia who is here for routine follow-up. PLAN AND RECOMMENDATIONS: 1. 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) - ICD9: 414.01, 413.9, ICD10: I25.118 (primary diagnosis) Mild coronary artery disease on catheterization in December 2020. No symptoms concerning for angina. Continue current medical therapy and risk factor modification - ECG COMPLETE 2. SVT (supraventricular tachycardia) (HCC) - ICD9: 427.89, ICD10: I47.1 Patient remains asymptomatic 3. Mixed hyperlipidemia - ICD9: 272.2, ICD10: E78.2 Patient's blood work from October 2021 was reviewed. His LDL cholesterol is 84 mg/dL. Prior LDL cholesterol 53 mg/dL. I recommend repeat fasting lipid panel in May. If his LDL remains above 70 may consider titration of his Lipitor. - LIPID PANEL BASIC 4. Screening for ischemic heart disease - ICD9: V81.0, ICD10: Z13.6 - ECG COMPLETE 5. Palpitations - ICD9: 785.1, ICD10: R00.2 Likely secondary to frequent PVCs Krunal Barragan MD documented in this encounter [facility] 03-05-2022 History of Present illness Narrative 71 year old male with c/o here for followup Doing well 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 (hcc) (primary encounter diagnosis) Svt (supraventricular tachycardia) (hcc) Hyperlipidemia, unspecified hyperlipidemia type Cardiovascular interval hx: none Current meds: Atorvastatin 20 mg daily metoprolol succinate ER 25 mg 1 tablet daily Use of NTG: No Chest pain, arm, jaw pain, neck, or upper back pain suggestive of angina: No. SOB: No Dyspnea with exertion: No orthopnea: No racing or irregular heartbeats: No palpitations: No syncopal sx: No Unexplainable fatigue No Leg swelling: No Nausea: No diaphoresis: No Heartburn: No Claudication: No Smoking: No Following Low cholesterol, high fiber diet? Yes If on statin: muscle aches? No If on statin: GI sx or diarrhea? No Additional history none. Obsessive-compulsive disorder, unspecified type [place] (generalized anxiety disorder) Hallucination, visual Current medications: Quetiapine 25 mg 1-2 tabs at bedtime as needed BuSpar 5 mg 1 tablet 3 times daily Chronic obstructive airway disease with asthma (hcc) Current medications: Fluticasone salmeterol 2 50 50 MCG 1 puff twice daily but only does once a day Albuterol HFA 90 MCG per actuation 2 puffs every 4 hours as needed Worsening shortness of breath: No. Cough: Yes. Wheezing: A little. Smoking: No. Compliant with medications: Yes. Using rescue inhaler: maybe once every 2-3 months. . Bph with obstruction/lower urinary tract symptoms Current medications: Tamsulosin 0.4 mg daily at bedtime Friend had prostate cancer: worried about sx. History of marijuana use Alcohol abuse, daily use Shot of whiskey and a beer daily, a couple bottle of wine a week reported Rare use of marijuana: none recently Repots rocks are tumbling lately indicating vertigo. Persistant daily episodes with brief vertigo Bothers him getting up at night- causes him to stagger. No falls. HISTORIES FAMILY HISTORY Problem Relation Age of Onset Heart Mother age 66, CA, SLE other (lupus) Mother diagnosed age 49 Heart Father age 84, CHF other (G6PD) Sister G6PD Diabetes Brother 1/2 brother Hypertension Brother 1/2 brother Colon Cancer Brother rectal cancer? 1/2 brother PAST MEDICAL HISTORY Diagnosis Date Abnormal stress echocardiogram 01/14/2021 01/21/[address] Barragan: right dominant. LMT min luminal, LAD mild diffuse, LCx mild luminal with large caliber nondominant vessel extending into a single large obtuse marginal branch, proximal vessel is mildly calcified +mild luminal irreg, RCA 40% Large-caliber dominant vessel: moderate calcification from the proximal to mid vessel, mild diffuse ectatic disease proximal.The ostium of the Anxiety state, unspecified 10/24/2007 Benign paroxysmal positional vertigo one remote episode Bunion Chronic obstructive asthma, unspecified 10/24/2007 Depression likely bipolar disorder Depressive disorder, not elsewhere classified 10/24/2007 Generalized anxiety disorder 10/24/2007 History of marijuana use 03/02/2016 Quit 08/2015 Hypermobility syndrome Mild coronary artery disease Mixed hyperlipidemia 11/27/2008 Nontraumatic rupture of tendons of biceps (long head) 12 R, 2/09 L OCD (obsessive compulsive disorder) Pneumonia, organism unspecified(486) 11/2001 bilateral: cleared Primary insomnia 03/02/2016 PAST SURGICAL HISTORY Procedure Laterality Date COLONOSCOPY FLX DX W/COLLJ SPEC WHEN PFRMD 09/21/2006 repeat due 2017 COLONOSCOPY FLX DX W/COLLJ SPEC WHEN PFRMD 04/22/2020 Colonoscopy COLSC FLX W/RMVL OF TUMOR POLYP LESION SNARE TQ 04/19/2017 2 adenomatous polyps - ESOPHAGOGASTRODUODENOSCOPY TRANSORAL DIAGNOSTIC 07/23/2019 EGD EXCISION OF BENIGN LESION GREATER THAN 1.25 CM 03/29/2000 tongue and lip lesions: fibroma; nose: sebaceous hyperplasia PAST SURGICAL HISTORY OF repair flexor tendon left thumb PAST SURGICAL HISTORY OF Left 09/03/2019 Dr. medina [facility]: left CTR and tenosynovectomy at wrist level PAST SURGICAL HISTORY OF Left 04/29/2021 Left median nerve release at the elbow and forearm, Dontae Medina MD, [facility] ROTATOR CUFF REPAIR 2008 left ROTATOR CUFF REPAIR 04/22/2016 right VASECTOMY UNI/BI SPX W/POSTOP SEMEN EXAMS Social History Tobacco Use Smoking status: Former Smoker Packs/day: 0.50 Years: 9.00 Pack years: 4.50 Quit date: 10/31/1976 Years since quittin.3 Smokeless tobacco: Never Used Substance Use Topics Alcohol use: Yes Alcohol/week: 20.0 standard drinks Types: 7 Glasses of Wine (5oz), 1 Cans of Beer (12oz) per week Comment: one-two drinks per day Drug use: Not Currently Comment: marijuana use, has used inhalants ACTIVE PROBLEM LIST Hypermobility Syndrome Bunion Copd, Mild (Hcc) Minor Depression Generalized anxiety disorder Mixed Hyperlipidemia Ocd (Obsessive Compulsive Disorder) Disorder of prostate Primary Insomnia History of Marijuana Use Well Adult Exam Incomplete Tear of Left Rotator Cuff Arthritis, Lumbar Spine Radicular Pain of Left Lower Extremity Acute Midline Low Back Pain With Left-Sided Sciatica Screening for Colon Cancer Colon Cancer Screening Tubular Adenoma of Colon Vertigo Neuralgic Amyotrophy of Left Brachial Plexus Fh: Prostate Cancer Sob (Shortness of Breath) Coronary Artery Disease of [place] Artery of [place] Heart With Stable Angina Pectoris (Hcc) H/O Cardiac Catheterization Palpitations Svt (Supraventricular Tachycardia) ([facility]) Current Outpatient Medications Medication Sig Dispense Refill atorvastatin (LIPITOR) 20 mg tablet TAKE 1 TABLET BY MOUTH EVERY DAY 90 tablet 3 metoprolol succinate ER (TOPROL XL) 25 mg 24 hr tablet TAKE 1 TABLET BY MOUTH EVERY DAY 90 tablet 3 polyethylene glycol 3350 (MIRALAX) 17 gram/dose powder 17g (1 scoop) with 8 oz daily as needed for constipation 225 g 5 QUEtiapine (SEROQUEL) 25 mg tablet TAKE 1-2 TABS BEFORE BED FOR INSOMNIA NEEDED. 60 tablet 2 busPIRone (BUSPAR) 5 mg tablet Take 1 tablet by mouth three times daily. 90 tablet 2 tamsulosin (FLOMAX) 0.4 mg Take 1 capsule by mouth daily at bedtime. 30 capsule 5 fluticasone-salmeterol (ADVAIR DISKUS) 250-50 mcg/dose inhaler INHALE 1 PUFF INSTRUCTED TWICE DAILY NEEDED (ASTHMA). 1 Each 5 albuterol HFA (VENTOLIN HFA) 90 mcg/actuation inhaler Inhale 2 Puffs as instructed every 4 hours as needed for wheezing/shortness of breath. 1 Each 5 nitroglycerin sublingual (NITROQUICK) 0.4 mg SL tablet Dissolve 1 tablet under the tongue every 5 minutes as needed for Chest Pain. 1 Bottle of 25 0 No current facility-administered medications for this visit. ABDOMINAL AORTIC ANEURYSM SCREENING Never done SPIROMETRY Never done ADVANCE DIRECTIVE DISCUSSION Never done EXAM: BP 120/72 Pulse 61 Resp 16 Wt 78.5 kg (173 lb) SpO2 95% BMI 24.13 kg/m Pleasant well ap[pearing adult man in no acute distress. Alert and oriented all spheres. Normal affect and cognition. Speech normal. No deficits to learning or comprehension. Skin warm, dry, pink to lips and nailbeds. Normal turgor. Respirations regular and unlabored. HEENT: NCAT. No scleral icterus or conjunctival injection. TM's clear. Nose and oropharynx free from injection or lesion. Oral membranes moist and pink. No cervical lymph nodes. Thyroid non-tender, no masses, or enlargement. Carotids pulses 2+/4+ without bruits. No JVD with HOB at 30 degrees. Chest is normal shape. Lungs are clear to all z[place] with good air exchange through out. HRRR without murmur or gallop. No lifts, heaves, or rubs. Extrem: no clubbing or cyanosis. Edema: none. Extremities are warm and pink with prompt capillary refill. + vertical nystagmus for 3-4 seconds ASSESSMENT/PLAN: 1. 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) - ICD9: 414.01, 413.9, ICD10: I25.118 (primary diagnosis) Stable, asymptomatic 2. SVT (supraventricular tachycardia) (HCC) - ICD9: 427.89, ICD10: I47.1 No recent symptoms. 3. Hyperlipidemia, unspecified hyperlipidemia type - ICD9: 272.4, ICD10: E78.5 - good control - Continue current medication. - Encouraged following a low fat, low cholesterol diet. 4. Obsessive-compulsive disorder, unspecified type - ICD9: 300.3, ICD10: F42.9 Stable to the point where he is able to manage in most scenarios. 5. MARTELL (generalized anxiety disorder) - ICD9: 300.02, ICD10: F41.1 Stable, continue medication 6. Hallucination, visual - ICD9: 368.16, ICD10: R44.1 Position to stop with discontinuation of Tylenol PM and use of alcohol and marijuana 7. 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) - ICD9: 493.20, ICD10: J44.9 Mild persistent Asthma stable - Continue current meds - Avoidance of triggers recommended 8. BPH with obstruction/lower urinary tract symptoms - ICD9: 600.01, 599.69, ICD10: N40.1, N13.8 Urine flow satisfactory on current medications: Continue 9. History of marijuana use - ICD9: 305.23, ICD10: Z87.898 Bradycardia is currently 10. Chronic vertigo - ICD9: 780.4, ICD10: R42 Concerning that this has been ongoing but not reported by the patient on a daily basis. Patient does wear hearing aids with known hearing loss. Patient does have episodes where he feels off balance only for few seconds but definite vertigo: I think it be best to have supervision by otolaryngology just to rule out centralized issues given duration. Patient has had episodes of intermittent vertigo stemming back to 2003. Was treated with physical therapy in 2018 for several sessions with some improvement. - CONSULT TO ENT Elif Mckinley PA-C documented in this encounter [facility] 02-18-2022 History of Present illness Narrative Patient presents for COVID booster. Denies any problems at this time. Tolerated injection well. Tracey Randolph LPN documented in this encounter [facility] 01-05-2022 Miscellaneous Notes Patient's request for medication is as follows: Pending Prescriptions Disp Refills ATORVASTATIN 20 MG TABLET 90 tablet 3 Sig: TAKE 1 TABLET BY MOUTH EVERY DAY BETH: Yes METOPROLOL SUCCINATE ER 25 MG TABLET,EXTENDED RELEASE 24 HR 90 tablet 3 Sig: TAKE 1 TABLET BY MOUTH EVERY DAY BETH: Yes Last seen 04/28/2021. Follow up scheduled for 04/26/2022. Prescription(s) as above. Please process accordingly. Elizabeth Mcintosh LPN documented in this encounter [facility] 01-14-2021 History of Past i llness Narrative Problem Noted Date Resolved Date Abnormal stress echocardiogram 01/14/2021 0 03/12/2021 Overview: 01/21/[address] Barragan: right dominant. LMT min luminal, LAD mild diffuse, LCx mild luminal with large caliber nondominant vessel extending into a single large obtuse marginal branch, proximal vessel is mildly calcified +mild luminal irreg, RCA 40% Large-caliber dominant vessel: moderate calcification from the proximal to mid vessel, mild diffuse ectatic disease proximal.The ostium of the PDA and posterior ventricular branches diffuse 30 to 40% luminal stenosis. 01/07/2021 2D echocardiogram: LV size and systolic function normal, ejection fraction 57%. LV size and systolic function normal. LA plus RA normal size. Trace MVI, trace TBI. No significant valve disease. Normal great vessels. Intraventricular septum with abnormal motion secondary to abnormal conduction. Identified ischemia at 89% MHR in area of LAD. Disorders of bursae and tend ons in shoulder region, unspecified 11/27/2008 12/02/2011 documented as of this encounter (statuses as of 01/05/2022) [facility]2021 History of Past illness Narrative* Problem Noted Date Resolved Date Abnormal stress echocardiogram 01/14/2021 0 03/12/2021 Overview: 01/21/[address] Barragan: right dominant. LMT min luminal, LAD mild diffuse, LCx mild luminal with large caliber nondominant vessel extending into a single large obtuse marginal branch, proximal vessel is mildly calcified +mild luminal irreg, RCA 40% Large-caliber dominant vessel: moderate calcification from the proximal to mid vessel, mild diffuse ectatic disease proximal.The ostium of the PDA and posterior ventricular branches diffuse 30 to 40% luminal stenosis. 01/07/2021 2D echocardiogram: LV size and systolic function normal, ejection fraction 57%. LV size and systolic function normal. LA plus RA normal size. Trace MVI, trace TBI. No significant valve disease. Normal great vessels. Intraventricular septum with abnormal motion secondary to abnormal conduction. Identified ischemia at 89% MHR in area of LAD. Disorders of bursae and tend ons in shoulder region, unspecified 11/27/2008 12/02/2011 documented as of this encounter (statuses as of 02/18/2022) [facility]21 History of Past illness Narrative* Problem Noted Date Resolved Date Abnormal stress echocardiogram 01/14/2021 0 03/12/2021 Overview: 01/21/[address] Barragan: right dominant. LMT min luminal, LAD mild diffuse, LCx mild luminal with large caliber nondominant vessel extending into a single large obtuse marginal branch, proximal vessel is mildly calcified +mild luminal irreg, RCA 40% Large-caliber dominant vessel: moderate calcification from the proximal to mid vessel, mild diffuse ectatic disease proximal.The ostium of the PDA and posterior ventricular branches diffuse 30 to 40% luminal stenosis. 01/07/2021 2D echocardiogram: LV size and systolic function normal, ejection fraction 57%. LV size and systolic function normal. LA plus RA normal size. Trace MVI, trace TBI. No significant valve disease. Normal great vessels. Intraventricular septum with abnormal motion secondary to abnormal conduction. Identified ischemia at 89% MHR in area of LAD. Disorders of bursae and tend ons in shoulder region, unspecified 11/27/2008 12/02/2011 documented as of this encounter (statuses as of 03/05/2022) [place] [id number] History of Past illness Narrative* Problem Noted Date Resolved Date Abnormal stress echocardiogram 01/14/2021 0 03/12/2021 Overview: 01/21/[address] Barragan: right dominant. LMT min luminal, LAD mild diffuse, LCx mild luminal with large caliber nondominant vessel extending into a single large obtuse marginal branch, proximal vessel is mildly calcified +mild luminal irreg, RCA 40% Large-caliber dominant vessel: moderate calcification from the proximal to mid vessel, mild diffuse ectatic disease proximal.The ostium of the PDA and posterior ventricular branches diffuse 30 to 40% luminal stenosis. 01/07/2021 2D echocardiogram: LV size and systolic function normal, ejection fraction 57%. LV size and systolic function normal. LA plus RA normal size. Trace MVI, trace TBI. No significant valve disease. Normal great vessels. Intraventricular septum with abnormal motion secondary to abnormal conduction. Identified ischemia at 89% MHR in area of LAD. Disorders of bursae and tend ons in shoulder region, unspecified 11/27/2008 12/02/2011 documented as of this encounter (statuses as of 04/26/2022) [facility] History of Past illness Narrative* Problem Noted Date Resolved Date Abnormal stress echocardiogram 01/14/2021 0 03/12/2021 Overview: 01/21/[address] Barragan: right dominant. LMT min luminal, LAD mild diffuse, LCx mild luminal with large caliber nondominant vessel extending into a single large obtuse marginal branch, proximal vessel is mildly calcified +mild luminal irreg, RCA 40% Large-caliber dominant vessel: moderate calcification from the proximal to mid vessel, mild diffuse ectatic disease proximal.The ostium of the PDA and posterior ventricular branches diffuse 30 to 40% luminal stenosis. 01/07/2021 2D echocardiogram: LV size and systolic function normal, ejection fraction 57%. LV size and systolic function normal. LA plus RA normal size. Trace MVI, trace TBI. No significant valve disease. Normal great vessels. Intraventricular septum with abnormal motion secondary to abnormal conduction. Identified ischemia at 89% MHR in area of LAD. Disorders of bursae and tend ons in shoulder region, unspecified 11/27/2008 12/02/2011 documented as of this encounter (statuses as of 04/29/2022) [facility]21 History of Past illness Narrative* Problem Noted Date Resolved Date Abnormal stress echocardiogram 01/14/2021 0 03/12/2021 Overview: 01/21/[address] Barragan: right dominant. LMT min luminal, LAD mild diffuse, LCx mild luminal with large caliber nondominant vessel extending into a single large obtuse marginal branch, proximal vessel is mildly calcified +mild luminal irreg, RCA 40% Large-caliber dominant vessel: moderate calcification from the proximal to mid vessel, mild diffuse ectatic disease proximal.The ostium of the PDA and posterior ventricular branches diffuse 30 to 40% luminal stenosis. 01/07/2021 2D echocardiogram: LV size and systolic function normal, ejection fraction 57%. LV size and systolic function normal. LA plus RA normal size. Trace MVI, trace TBI. No significant valve disease. Normal great vessels. Intraventricular septum with abnormal motion secondary to abnormal conduction. Identified ischemia at 89% MHR in area of LAD. Disorders of bursae and tend ons in shoulder region, unspecified 11/27/2008 12/02/2011 documented as of this encounter (statuses as of 05/11/2022) [facility] History of Past illness Narrative* Problem Noted Date Resolved Date Abnormal stress echocardiogram 01/14/2021 0 03/12/2021 Overview: 01/21/[address] Barragan: right dominant. LMT min luminal, LAD mild diffuse, LCx mild luminal with large caliber nondominant vessel extending into a single large obtuse marginal branch, proximal vessel is mildly calcified +mild luminal irreg, RCA 40% Large-caliber dominant vessel: moderate calcification from the proximal to mid vessel, mild diffuse ectatic disease proximal.The ostium of the PDA and posterior ventricular branches diffuse 30 to 40% luminal stenosis. 01/07/2021 2D echocardiogram: LV size and systolic function normal, ejection fraction 57%. LV size and systolic function normal. LA plus RA normal size. Trace MVI, trace TBI. No significant valve disease. Normal great vessels. Intraventricular septum with abnormal motion secondary to abnormal conduction. Identified ischemia at 89% MHR in area of LAD. Disorders of bursae and tend ons in shoulder region, unspecified 11/27/2008 12/02/2011 documented as of this encounter (statuses as of 05/12/2022) [facility] History of Past illness Narrative* Problem Noted Date Resolved Date Abnormal stress echocardiogram 01/14/2021 0 03/12/2021 Overview: 01/21/[address] Barragan: right dominant. LMT min luminal, LAD mild diffuse, LCx mild luminal with large caliber nondominant vessel extending into a single large obtuse marginal branch, proximal vessel is mildly calcified +mild luminal irreg, RCA 40% Large-caliber dominant vessel: moderate calcification from the proximal to mid vessel, mild diffuse ectatic disease proximal.The ostium of the PDA and posterior ventricular branches diffuse 30 to 40% luminal stenosis. 01/07/2021 2D echocardiogram: LV size and systolic function normal, ejection fraction 57%. LV size and systolic function normal. LA plus RA normal size. Trace MVI, trace TBI. No significant valve disease. Normal great vessels. Intraventricular septum with abnormal motion secondary to abnormal conduction. Identified ischemia at 89% MHR in area of LAD. Disorders of bursae and tend ons in shoulder region, unspecified 11/27/2008 12/02/2011 documented as of this encounter (statuses as of 06/07/2022) [facility] History of Past illness Narrative* Problem Noted Date Resolved Date Abnormal stress echocardiogram 01/14/2021 0 03/12/2021 Overview: 01/21/[address] Barragan: right dominant. LMT min luminal, LAD mild diffuse, LCx mild luminal with large caliber nondominant vessel extending into a single large obtuse marginal branch, proximal vessel is mildly calcified +mild luminal irreg, RCA 40% Large-caliber dominant vessel: moderate calcification from the proximal to mid vessel, mild diffuse ectatic disease proximal.The ostium of the PDA and posterior ventricular branches diffuse 30 to 40% luminal stenosis. 01/07/2021 2D echocardiogram: LV size and systolic function normal, ejection fraction 57%. LV size and systolic function normal. LA plus RA normal size. Trace MVI, trace TBI. No significant valve disease. Normal great vessels. Intraventricular septum with abnormal motion secondary to abnormal conduction. Identified ischemia at 89% MHR in area of LAD. Disorders of bursae and tend ons in shoulder region, unspecified 11/27/2008 12/02/2011 documented as of this encounter (statuses as of 06/23/2022) [facility] History of Past illness Narrative* Problem Noted Date Resolved Date Abnormal stress echocardiogram 01/14/2021 0 03/12/2021 Overview: 01/21/[address] Barragan: right dominant. LMT min luminal, LAD mild diffuse, LCx mild luminal with large caliber nondominant vessel extending into a single large obtuse marginal branch, proximal vessel is mildly calcified +mild luminal irreg, RCA 40% Large-caliber dominant vessel: moderate calcification from the proximal to mid vessel, mild diffuse ectatic disease proximal.The ostium of the PDA and posterior ventricular branches diffuse 30 to 40% luminal stenosis. 01/07/2021 2D echocardiogram: LV size and systolic function normal, ejection fraction 57%. LV size and systolic function normal. LA plus RA normal size. Trace MVI, trace TBI. No significant valve disease. Normal great vessels. Intraventricular septum with abnormal motion secondary to abnormal conduction. Identified ischemia at 89% MHR in area of LAD. Disorders of bursae and tend ons in shoulder region, unspecified 11/27/2008 12/02/2011 documented as of this encounter (statuses as of 07/02/2022) [facility] History of Past illness Narrative* Problem Noted Date Resolved Date Abnormal stress echocardiogram 01/14/2021 0 03/12/2021 Overview: 01/21/[address] Barragan: right dominant. LMT min luminal, LAD mild diffuse, LCx mild luminal with large caliber nondominant vessel extending into a single large obtuse marginal branch, proximal vessel is mildly calcified +mild luminal irreg, RCA 40% Large-caliber dominant vessel: moderate calcification from the proximal to mid vessel, mild diffuse ectatic disease proximal.The ostium of the PDA and posterior ventricular branches diffuse 30 to 40% luminal stenosis. 01/07/2021 2D echocardiogram: LV size and systolic function normal, ejection fraction 57%. LV size and systolic function normal. LA plus RA normal size. Trace MVI, trace TBI. No significant valve disease. Normal great vessels. Intraventricular septum with abnormal motion secondary to abnormal conduction. Identified ischemia at 89% MHR in area of LAD. Disorders of bursae and tend ons in shoulder region, unspecified 11/27/2008 12/02/2011 documented as of this encounter (statuses as of 07/08/2022) [facility] History of Past illness Narrative* Problem Noted Date Resolved Date Abnormal stress echocardiogram 01/14/2021 0 03/12/2021 Overview: 01/21/[address] Barragan: right dominant. LMT min luminal, LAD mild diffuse, LCx mild luminal with large caliber nondominant vessel extending into a single large obtuse marginal branch, proximal vessel is mildly calcified +mild luminal irreg, RCA 40% Large-caliber dominant vessel: moderate calcification from the proximal to mid vessel, mild diffuse ectatic disease proximal.The ostium of the PDA and posterior ventricular branches diffuse 30 to 40% luminal stenosis. 01/07/2021 2D echocardiogram: LV size and systolic function normal, ejection fraction 57%. LV size and systolic function normal. LA plus RA normal size. Trace MVI, trace TBI. No significant valve disease. Normal great vessels. Intraventricular septum with abnormal motion secondary to abnormal conduction. Identified ischemia at 89% MHR in area of LAD. Disorders of bursae and tend ons in shoulder region, unspecified 11/27/2008 12/02/2011 documented as of this encounter (statuses as of 08/02/2022) [facility] History of Past illness Narrative* Problem Noted Date Resolved Date Abnormal stress echocardiogram 01/14/2021 0 03/12/2021 Overview: 01/21/[address] Barragan: right dominant. LMT min luminal, LAD mild diffuse, LCx mild luminal with large caliber nondominant vessel extending into a single large obtuse marginal branch, proximal vessel is mildly calcified +mild luminal irreg, RCA 40% Large-caliber dominant vessel: moderate calcification from the proximal to mid vessel, mild diffuse ectatic disease proximal.The ostium of the PDA and posterior ventricular branches diffuse 30 to 40% luminal stenosis. 01/07/2021 2D echocardiogram: LV size and systolic function normal, ejection fraction 57%. LV size and systolic function normal. LA plus RA normal size. Trace MVI, trace TBI. No significant valve disease. Normal great vessels. Intraventricular septum with abnormal motion secondary to abnormal conduction. Identified ischemia at 89% MHR in area of LAD. Disorders of bursae and tend ons in shoulder region, unspecified 11/27/2008 12/02/2011 documented as of this encounter (statuses as of 09/07/2022) [facility] History of Past illness Narrative* Problem Noted Date Resolved Date Abnormal stress echocardiogram 01/14/2021 0 03/12/2021 Overview: 01/21/[address] Barragan: right dominant. LMT min luminal, LAD mild diffuse, LCx mild luminal with large caliber nondominant vessel extending into a single large obtuse marginal branch, proximal vessel is mildly calcified +mild luminal irreg, RCA 40% Large-caliber dominant vessel: moderate calcification from the proximal to mid vessel, mild diffuse ectatic disease proximal.The ostium of the PDA and posterior ventricular branches diffuse 30 to 40% luminal stenosis. 01/07/2021 2D echocardiogram: LV size and systolic function normal, ejection fraction 57%. LV size and systolic function normal. LA plus RA normal size. Trace MVI, trace TBI. No significant valve disease. Normal great vessels. Intraventricular septum with abnormal motion secondary to abnormal conduction. Identified ischemia at 89% MHR in area of LAD. Disorders of bursae and tend ons in shoulder region, unspecified 11/27/2008 12/02/2011 documented as of this encounter (statuses as of 09/21/2022) [facility]05-19-2021 History of Past illness Narrative* Problem Noted Date Resolved Date Abnormal stress echocardiogram 01/14/2021 0 03/12/2021 Overview: 01/21/[address] Barragan: right dominant. LMT min luminal, LAD mild diffuse, LCx mild luminal with large caliber nondominant vessel extending into a single large obtuse marginal branch, proximal vessel is mildly calcified +mild luminal irreg, RCA 40% Large-caliber dominant vessel: moderate calcification from the proximal to mid vessel, mild diffuse ectatic disease proximal.The ostium of the PDA and posterior ventricular branches diffuse 30 to 40% luminal stenosis. 01/07/2021 2D echocardiogram: LV size and systolic function normal, ejection fraction 57%. LV size and systolic function normal. LA plus RA normal size. Trace MVI, trace TBI. No significant valve disease. Normal great vessels. Intraventricular septum with abnormal motion secondary to abnormal conduction. Identified ischemia at 89% MHR in area of LAD. Disorders of bursae and tend ons in shoulder region, unspecified 11/27/2008 12/02/2011 documented as of this encounter (statuses as of 09/22/2022) [facility]05-19-2021 History of Past illness Narrative* Problem Noted Date Resolved Date Abnormal stress echocardiogram 01/14/2021 0 03/12/2021 Overview: 01/21/[address] Barragan: right dominant. LMT min luminal, LAD mild diffuse, LCx mild luminal with large caliber nondominant vessel extending into a single large obtuse marginal branch, proximal vessel is mildly calcified +mild luminal irreg, RCA 40% Large-caliber dominant vessel: moderate calcification from the proximal to mid vessel, mild diffuse ectatic disease proximal.The ostium of the PDA and posterior ventricular branches diffuse 30 to 40% luminal stenosis. 01/07/2021 2D echocardiogram: LV size and systolic function normal, ejection fraction 57%. LV size and systolic function normal. LA plus RA normal size. Trace MVI, trace TBI. No significant valve disease. Normal great vessels. Intraventricular septum with abnormal motion secondary to abnormal conduction. Identified ischemia at 89% MHR in area of LAD. Disorders of bursae and tend ons in shoulder region, unspecified 11/27/2008 12/02/2011 documented as of this encounter (statuses as of 09/23/2022) [facility]05-19-2021 History of Past illness Narrative* Problem Noted Date Resolved Date Abnormal stress echocardiogram 01/14/2021 0 03/12/2021 Overview: 01/21/[address] Barragan: right dominant. LMT min luminal, LAD mild diffuse, LCx mild luminal with large caliber nondominant vessel extending into a single large obtuse marginal branch, proximal vessel is mildly calcified +mild luminal irreg, RCA 40% Large-caliber dominant vessel: moderate calcification from the proximal to mid vessel, mild diffuse ectatic disease proximal.The ostium of the PDA and posterior ventricular branches diffuse 30 to 40% luminal stenosis. 01/07/2021 2D echocardiogram: LV size and systolic function normal, ejection fraction 57%. LV size and systolic function normal. LA plus RA normal size. Trace MVI, trace TBI. No significant valve disease. Normal great vessels. Intraventricular septum with abnormal motion secondary to abnormal conduction. Identified ischemia at 89% MHR in area of LAD. Disorders of bursae and tend ons in shoulder region, unspecified 11/27/2008 12/02/2011 documented as of this encounter (statuses as of 09/24/2022) [facility]05-19-2021 History of Past illness Narrative* Problem Noted Date Resolved Date Abnormal stress echocardiogram 01/14/2021 0 03/12/2021 Overview: 01/21/[address] Barragan: right dominant. LMT min luminal, LAD mild diffuse, LCx mild luminal with large caliber nondominant vessel extending into a single large obtuse marginal branch, proximal vessel is mildly calcified +mild luminal irreg, RCA 40% Large-caliber dominant vessel: moderate calcification from the proximal to mid vessel, mild diffuse ectatic disease proximal.The ostium of the PDA and posterior ventricular branches diffuse 30 to 40% luminal stenosis. 01/07/2021 2D echocardiogram: LV size and systolic function normal, ejection fraction 57%. LV size and systolic function normal. LA plus RA normal size. Trace MVI, trace TBI. No significant valve disease. Normal great vessels. Intraventricular septum with abnormal motion secondary to abnormal conduction. Identified ischemia at 89% MHR in area of LAD. Disorders of bursae and tend ons in shoulder region, unspecified 11/27/2008 12/02/2011 documented as of this encounter (statuses as of 09/28/2022) [facility]-19-2021 History of Past illness Narrative* Problem Noted Date Resolved Date Abnormal stress echocardiogram 01/14/2021 0 03/12/2021 Overview: 01/21/[address] Barragan: right dominant. LMT min luminal, LAD mild diffuse, LCx mild luminal with large caliber nondominant vessel extending into a single large obtuse marginal branch, proximal vessel is mildly calcified +mild luminal irreg, RCA 40% Large-caliber dominant vessel: moderate calcification from the proximal to mid vessel, mild diffuse ectatic disease proximal.The ostium of the PDA and posterior ventricular branches diffuse 30 to 40% luminal stenosis. 01/07/2021 2D echocardiogram: LV size and systolic function normal, ejection fraction 57%. LV size and systolic function normal. LA plus RA normal size. Trace MVI, trace TBI. No significant valve disease. Normal great vessels. Intraventricular septum with abnormal motion secondary to abnormal conduction. Identified ischemia at 89% MHR in area of LAD. Disorders of bursae and tend ons in shoulder region, unspecified 11/27/2008 12/02/2011 documented as of this encounter (statuses as of 09/28/2022) [facility]-19-2021 History of Past illness Narrative* Problem Noted Date Resolved Date Abnormal stress echocardiogram 01/14/2021 0 03/12/2021 Overview: 01/21/[address] Barragan: right dominant. LMT min luminal, LAD mild diffuse, LCx mild luminal with large caliber nondominant vessel extending into a single large obtuse marginal branch, proximal vessel is mildly calcified +mild luminal irreg, RCA 40% Large-caliber dominant vessel: moderate calcification from the proximal to mid vessel, mild diffuse ectatic disease proximal.The ostium of the PDA and posterior ventricular branches diffuse 30 to 40% luminal stenosis. 01/07/2021 2D echocardiogram: LV size and systolic function normal, ejection fraction 57%. LV size and systolic function normal. LA plus RA normal size. Trace MVI, trace TBI. No significant valve disease. Normal great vessels. Intraventricular septum with abnormal motion secondary to abnormal conduction. Identified ischemia at 89% MHR in area of LAD. Disorders of bursae and tend ons in shoulder region, unspecified 11/27/2008 12/02/2011 documented as of this encounter (statuses as of 09/29/2022) [facility]-19-2021 History of Past illness Narrative* Problem Noted Date Resolved Date Abnormal stress echocardiogram 01/14/2021 0 03/12/2021 Overview: 01/21/[address] Barragan: right dominant. LMT min luminal, LAD mild diffuse, LCx mild luminal with large caliber nondominant vessel extending into a single large obtuse marginal branch, proximal vessel is mildly calcified +mild luminal irreg, RCA 40% Large-caliber dominant vessel: moderate calcification from the proximal to mid vessel, mild diffuse ectatic disease proximal.The ostium of the PDA and posterior ventricular branches diffuse 30 to 40% luminal stenosis. 01/07/2021 2D echocardiogram: LV size and systolic function normal, ejection fraction 57%. LV size and systolic function normal. LA plus RA normal size. Trace MVI, trace TBI. No significant valve disease. Normal great vessels. Intraventricular septum with abnormal motion secondary to abnormal conduction. Identified ischemia at 89% MHR in area of LAD. Disorders of bursae and tend ons in shoulder region, unspecified 11/27/2008 12/02/2011 documented as of this encounter (statuses as of 09/29/2022) [facility]-19-2021 History of Past illness Narrative* Problem Noted Date Resolved Date Abnormal stress echocardiogram 01/14/2021 0 03/12/2021 Overview: 01/21/[address] Barragan: right dominant. LMT min luminal, LAD mild diffuse, LCx mild luminal with large caliber nondominant vessel extending into a single large obtuse marginal branch, proximal vessel is mildly calcified +mild luminal irreg, RCA 40% Large-caliber dominant vessel: moderate calcification from the proximal to mid vessel, mild diffuse ectatic disease proximal.The ostium of the PDA and posterior ventricular branches diffuse 30 to 40% luminal stenosis. 01/07/2021 2D echocardiogram: LV size and systolic function normal, ejection fraction 57%. LV size and systolic function normal. LA plus RA normal size. Trace MVI, trace TBI. No significant valve disease. Normal great vessels. Intraventricular septum with abnormal motion secondary to abnormal conduction. Identified ischemia at 89% MHR in area of LAD. Disorders of bursae and tend ons in shoulder region, unspecified 11/27/2008 12/02/2011 documented as of this encounter (statuses as of 09/30/2022) [facility]-19-2021 History of Past illness Narrative* Problem Noted Date Resolved Date Abnormal stress echocardiogram 01/14/2021 0 03/12/2021 Overview: 01/21/[address] Barragan: right dominant. LMT min luminal, LAD mild diffuse, LCx mild luminal with large caliber nondominant vessel extending into a single large obtuse marginal branch, proximal vessel is mildly calcified +mild luminal irreg, RCA 40% Large-caliber dominant vessel: moderate calcification from the proximal to mid vessel, mild diffuse ectatic disease proximal.The ostium of the PDA and posterior ventricular branches diffuse 30 to 40% luminal stenosis. 01/07/2021 2D echocardiogram: LV size and systolic function normal, ejection fraction 57%. LV size and systolic function normal. LA plus RA normal size. Trace MVI, trace TBI. No significant valve disease. Normal great vessels. Intraventricular septum with abnormal motion secondary to abnormal conduction. Identified ischemia at 89% MHR in area of LAD. Disorders of bursae and tend ons in shoulder region, unspecified 11/27/2008 12/02/2011 documented as of this encounter (statuses as of 10/15/2022) [facility]-19-2021 History of Past illness Narrative* Problem Noted Date Resolved Date Abnormal stress echocardiogram 01/14/2021 0 03/12/2021 Overview: 01/21/[address] Barragan: right dominant. LMT min luminal, LAD mild diffuse, LCx mild luminal with large caliber nondominant vessel extending into a single large obtuse marginal branch, proximal vessel is mildly calcified +mild luminal irreg, RCA 40% Large-caliber dominant vessel: moderate calcification from the proximal to mid vessel, mild diffuse ectatic disease proximal.The ostium of the PDA and posterior ventricular branches diffuse 30 to 40% luminal stenosis. 01/07/2021 2D echocardiogram: LV size and systolic function normal, ejection fraction 57%. LV size and systolic function normal. LA plus RA normal size. Trace MVI, trace TBI. No significant valve disease. Normal great vessels. Intraventricular septum with abnormal motion secondary to abnormal conduction. Identified ischemia at 89% MHR in area of LAD. Disorders of bursae and tend ons in shoulder region, unspecified 11/27/2008 12/02/2011 documented as of this encounter (statuses as of 10/21/2022) [facility]-19-2021 History of Past illness Narrative* Problem Noted Date Resolved Date Abnormal stress echocardiogram 01/14/2021 0 03/12/2021 Overview: 01/21/[address] Barragan: right dominant. LMT min luminal, LAD mild diffuse, LCx mild luminal with large caliber nondominant vessel extending into a single large obtuse marginal branch, proximal vessel is mildly calcified +mild luminal irreg, RCA 40% Large-caliber dominant vessel: moderate calcification from the proximal to mid vessel, mild diffuse ectatic disease proximal.The ostium of the PDA and posterior ventricular branches diffuse 30 to 40% luminal stenosis. 01/07/2021 2D echocardiogram: LV size and systolic function normal, ejection fraction 57%. LV size and systolic function normal. LA plus RA normal size. Trace MVI, trace TBI. No significant valve disease. Normal great vessels. Intraventricular septum with abnormal motion secondary to abnormal conduction. Identified ischemia at 89% MHR in area of LAD. Disorders of bursae and tend ons in shoulder region, unspecified 11/27/2008 12/02/2011 documented as of this encounter (statuses as of 10/22/2022) [facility]-19-2021 History of Past illness Narrative* Problem Noted Date Resolved Date Abnormal stress echocardiogram 01/14/2021 0 03/12/2021 Overview: 01/21/[address] Barragan: right dominant. LMT min luminal, LAD mild diffuse, LCx mild luminal with large caliber nondominant vessel extending into a single large obtuse marginal branch, proximal vessel is mildly calcified +mild luminal irreg, RCA 40% Large-caliber dominant vessel: moderate calcification from the proximal to mid vessel, mild diffuse ectatic disease proximal.The ostium of the PDA and posterior ventricular branches diffuse 30 to 40% luminal stenosis. 01/07/2021 2D echocardiogram: LV size and systolic function normal, ejection fraction 57%. LV size and systolic function normal. LA plus RA normal size. Trace MVI, trace TBI. No significant valve disease. Normal great vessels. Intraventricular septum with abnormal motion secondary to abnormal conduction. Identified ischemia at 89% MHR in area of LAD. Disorders of bursae and tend ons in shoulder region, unspecified 11/27/2008 12/02/2011 documented as of this encounter (statuses as of 10/25/2022) [facility]-19-2021 History of Past illness Narrative* Problem Noted Date Resolved Date Abnormal stress echocardiogram 01/14/2021 0 03/12/2021 Overview: 01/21/[address] Barragan: right dominant. LMT min luminal, LAD mild diffuse, LCx mild luminal with large caliber nondominant vessel extending into a single large obtuse marginal branch, proximal vessel is mildly calcified +mild luminal irreg, RCA 40% Large-caliber dominant vessel: moderate calcification from the proximal to mid vessel, mild diffuse ectatic disease proximal.The ostium of the PDA and posterior ventricular branches diffuse 30 to 40% luminal stenosis. 01/07/2021 2D echocardiogram: LV size and systolic function normal, ejection fraction 57%. LV size and systolic function normal. LA plus RA normal size. Trace MVI, trace TBI. No significant valve disease. Normal great vessels. Intraventricular septum with abnormal motion secondary to abnormal conduction. Identified ischemia at 89% MHR in area of LAD. Disorders of bursae and tend ons in shoulder region, unspecified 11/27/2008 12/02/2011 documented as of this encounter (statuses as of 10/25/2022) [facility]-19-2021 History of Past illness Narrative* Problem Noted Date Resolved Date Abnormal stress echocardiogram 01/14/2021 0 03/12/2021 Overview: 01/21/[address] Barragan: right dominant. LMT min luminal, LAD mild diffuse, LCx mild luminal with large caliber nondominant vessel extending into a single large obtuse marginal branch, proximal vessel is mildly calcified +mild luminal irreg, RCA 40% Large-caliber dominant vessel: moderate calcification from the proximal to mid vessel, mild diffuse ectatic disease proximal.The ostium of the PDA and posterior ventricular branches diffuse 30 to 40% luminal stenosis. 01/07/2021 2D echocardiogram: LV size and systolic function normal, ejection fraction 57%. LV size and systolic function normal. LA plus RA normal size. Trace MVI, trace TBI. No significant valve disease. Normal great vessels. Intraventricular septum with abnormal motion secondary to abnormal conduction. Identified ischemia at 89% MHR in area of LAD. Disorders of bursae and tend ons in shoulder region, unspecified 11/27/2008 12/02/2011 documented as of this encounter (statuses as of 10/25/2022) [facility]-19-2021 History of Past illness Narrative* Problem Noted Date Resolved Date Abnormal stress echocardiogram 01/14/2021 0 03/12/2021 Overview: 01/21/[address] Barragan: right dominant. LMT min luminal, LAD mild diffuse, LCx mild luminal with large caliber nondominant vessel extending into a single large obtuse marginal branch, proximal vessel is mildly calcified +mild luminal irreg, RCA 40% Large-caliber dominant vessel: moderate calcification from the proximal to mid vessel, mild diffuse ectatic disease proximal.The ostium of the PDA and posterior ventricular branches diffuse 30 to 40% luminal stenosis. 01/07/2021 2D echocardiogram: LV size and systolic function normal, ejection fraction 57%. LV size and systolic function normal. LA plus RA normal size. Trace MVI, trace TBI. No significant valve disease. Normal great vessels. Intraventricular septum with abnormal motion secondary to abnormal conduction. Identified ischemia at 89% MHR in area of LAD. Disorders of bursae and tend ons in shoulder region, unspecified 11/27/2008 12/02/2011 documented as of this encounter (statuses as of 10/27/2022) [facility]-19-2021 History of Past illness Narrative* Problem Noted Date Resolved Date Abnormal stress echocardiogram 01/14/2021 0 03/12/2021 Overview: 01/21/[address] Barragan: right dominant. LMT min luminal, LAD mild diffuse, LCx mild luminal with large caliber nondominant vessel extending into a single large obtuse marginal branch, proximal vessel is mildly calcified +mild luminal irreg, RCA 40% Large-caliber dominant vessel: moderate calcification from the proximal to mid vessel, mild diffuse ectatic disease proximal.The ostium of the PDA and posterior ventricular branches diffuse 30 to 40% luminal stenosis. 01/07/2021 2D echocardiogram: LV size and systolic function normal, ejection fraction 57%. LV size and systolic function normal. LA plus RA normal size. Trace MVI, trace TBI. No significant valve disease. Normal great vessels. Intraventricular septum with abnormal motion secondary to abnormal conduction. Identified ischemia at 89% MHR in area of LAD. Disorders of bursae and tend ons in shoulder region, unspecified 11/27/2008 12/02/2011 documented as of this encounter (statuses as of 11/12/2022) [facility]-19-2021 History of Past illness Narrative* Problem Noted Date Resolved Date Abnormal stress echocardiogram 01/14/2021 0 03/12/2021 Overview: 01/21/[address] Barragan: right dominant. LMT min luminal, LAD mild diffuse, LCx mild luminal with large caliber nondominant vessel extending into a single large obtuse marginal branch, proximal vessel is mildly calcified +mild luminal irreg, RCA 40% Large-caliber dominant vessel: moderate calcification from the proximal to mid vessel, mild diffuse ectatic disease proximal.The ostium of the PDA and posterior ventricular branches diffuse 30 to 40% luminal stenosis. 01/07/2021 2D echocardiogram: LV size and systolic function normal, ejection fraction 57%. LV size and systolic function normal. LA plus RA normal size. Trace MVI, trace TBI. No significant valve disease. Normal great vessels. Intraventricular septum with abnormal motion secondary to abnormal conduction. Identified ischemia at 89% MHR in area of LAD. Disorders of bursae and tend ons in shoulder region, unspecified 11/27/2008 12/02/2011 documented as of this encounter (statuses as of 11/12/2022) [facility]-19[facility]2021 History of Past illness Narrative* Problem Noted Date Resolved Date Abnormal stress echocardiogram 01/14/2021 0 03/12/2021 Overview: 01/21/[address] Barragan: right dominant. LMT min luminal, LAD mild diffuse, LCx mild luminal with large caliber nondominant vessel extending into a single large obtuse marginal branch, proximal vessel is mildly calcified +mild luminal irreg, RCA 40% Large-caliber dominant vessel: moderate calcification from the proximal to mid vessel, mild diffuse ectatic disease proximal.The ostium of the PDA and posterior ventricular branches diffuse 30 to 40% luminal stenosis. 01/07/2021 2D echocardiogram: LV size and systolic function normal, ejection fraction 57%. LV size and systolic function normal. LA plus RA normal size. Trace MVI, trace TBI. No significant valve disease. Normal great vessels. Intraventricular septum with abnormal motion secondary to abnormal conduction. Identified ischemia at 89% MHR in area of LAD. Disorders of bursae and tend ons in shoulder region, unspecified 11/27/2008 12/02/2011 documented as of this encounter (statuses as of 11/29/2022) [facility]-19[facility]2021 History of Past illness Narrative* Problem Noted Date Resolved Date Abnormal stress echocardiogram 01/14/2021 0 03/12/2021 Overview: 01/21/[address] Barragan: right dominant. LMT min luminal, LAD mild diffuse, LCx mild luminal with large caliber nondominant vessel extending into a single large obtuse marginal branch, proximal vessel is mildly calcified +mild luminal irreg, RCA 40% Large-caliber dominant vessel: moderate calcification from the proximal to mid vessel, mild diffuse ectatic disease proximal.The ostium of the PDA and posterior ventricular branches diffuse 30 to 40% luminal stenosis. 01/07/2021 2D echocardiogram: LV size and systolic function normal, ejection fraction 57%. LV size and systolic function normal. LA plus RA normal size. Trace MVI, trace TBI. No significant valve disease. Normal great vessels. Intraventricular septum with abnormal motion secondary to abnormal conduction. Identified ischemia at 89% MHR in area of LAD. Disorders of bursae and tend ons in shoulder region, unspecified 11/27/2008 12/02/2011 documented as of this encounter (statuses as of 12/17/2022) [facility]-19-2021 History of Past illness Narrative* Problem Noted Date Resolved Date Abnormal stress echocardiogram 01/14/2021 0 03/12/2021 Overview: 01/21/[address] Barragan: right dominant. LMT min luminal, LAD mild diffuse, LCx mild luminal with large caliber nondominant vessel extending into a single large obtuse marginal branch, proximal vessel is mildly calcified +mild luminal irreg, RCA 40% Large-caliber dominant vessel: moderate calcification from the proximal to mid vessel, mild diffuse ectatic disease proximal.The ostium of the PDA and posterior ventricular branches diffuse 30 to 40% luminal stenosis. 01/07/2021 2D echocardiogram: LV size and systolic function normal, ejection fraction 57%. LV size and systolic function normal. LA plus RA normal size. Trace MVI, trace TBI. No significant valve disease. Normal great vessels. Intraventricular septum with abnormal motion secondary to abnormal conduction. Identified ischemia at 89% MHR in area of LAD. Disorders of bursae and tend ons in shoulder region, unspecified 11/27/2008 12/02/2011 documented as of this encounter (statuses as of 12/20/2022) [facility]-19[facility]2021 History of Past illness Narrative* Problem Noted Date Resolved Date Abnormal stress echocardiogram 01/14/2021 0 03/12/2021 Overview: 01/21/[address] Barragan: right dominant. LMT min luminal, LAD mild diffuse, LCx mild luminal with large caliber nondominant vessel extending into a single large obtuse marginal branch, proximal vessel is mildly calcified +mild luminal irreg, RCA 40% Large-caliber dominant vessel: moderate calcification from the proximal to mid vessel, mild diffuse ectatic disease proximal.The ostium of the PDA and posterior ventricular branches diffuse 30 to 40% luminal stenosis. 01/07/2021 2D echocardiogram: LV size and systolic function normal, ejection fraction 57%. LV size and systolic function normal. LA plus RA normal size. Trace MVI, trace TBI. No significant valve disease. Normal great vessels. Intraventricular septum with abnormal motion secondary to abnormal conduction. Identified ischemia at 89% MHR in area of LAD. Disorders of bursae and tend ons in shoulder region, unspecified 11/27/2008 12/02/2011 documented as of this encounter (statuses as of 01/03/2023) [facility]05-19-2021 History of Past illness Narrative* Problem Noted Date Resolved Date Abnormal stress echocardiogram 01/14/2021 0 03/12/2021 Overview: 01/21/[address] Barragan: right dominant. LMT min luminal, LAD mild diffuse, LCx mild luminal with large caliber nondominant vessel extending into a single large obtuse marginal branch, proximal vessel is mildly calcified +mild luminal irreg, RCA 40% Large-caliber dominant vessel: moderate calcification from the proximal to mid vessel, mild diffuse ectatic disease proximal.The ostium of the PDA and posterior ventricular branches diffuse 30 to 40% luminal stenosis. 01/07/2021 2D echocardiogram: LV size and systolic function normal, ejection fraction 57%. LV size and systolic function normal. LA plus RA normal size. Trace MVI, trace TBI. No significant valve disease. Normal great vessels. Intraventricular septum with abnormal motion secondary to abnormal conduction. Identified ischemia at 89% MHR in area of LAD. Disorders of bursae and tend ons in shoulder region, unspecified 11/27/2008 12/02/2011 documented as of this encounter (statuses as of 01/28/2023) [facility]05-19-2021 History of Past illness Narrative* Problem Noted Date Resolved Date Abnormal stress echocardiogram 01/14/2021 0 03/12/2021 Overview: 01/21/[address] Barragan: right dominant. LMT min luminal, LAD mild diffuse, LCx mild luminal with large caliber nondominant vessel extending into a single large obtuse marginal branch, proximal vessel is mildly calcified +mild luminal irreg, RCA 40% Large-caliber dominant vessel: moderate calcification from the proximal to mid vessel, mild diffuse ectatic disease proximal.The ostium of the PDA and posterior ventricular branches diffuse 30 to 40% luminal stenosis. 01/07/2021 2D echocardiogram: LV size and systolic function normal, ejection fraction 57%. LV size and systolic function normal. LA plus RA normal size. Trace MVI, trace TBI. No significant valve disease. Normal great vessels. Intraventricular septum with abnormal motion secondary to abnormal conduction. Identified ischemia at 89% MHR in area of LAD. Disorders of bursae and tend ons in shoulder region, unspecified 11/27/2008 12/02/2011 documented as of this encounter (statuses as of 02/01/2023) [facility]05-19-2021 History of Past illness Narrative* Problem Noted Date Resolved Date Abnormal stress echocardiogram 01/14/2021 0 03/12/2021 Overview: 01/21/[address] Barragan: right dominant. LMT min luminal, LAD mild diffuse, LCx mild luminal with large caliber nondominant vessel extending into a single large obtuse marginal branch, proximal vessel is mildly calcified +mild luminal irreg, RCA 40% Large-caliber dominant vessel: moderate calcification from the proximal to mid vessel, mild diffuse ectatic disease proximal.The ostium of the PDA and posterior ventricular branches diffuse 30 to 40% luminal stenosis. 01/07/2021 2D echocardiogram: LV size and systolic function normal, ejection fraction 57%. LV size and systolic function normal. LA plus RA normal size. Trace MVI, trace TBI. No significant valve disease. Normal great vessels. Intraventricular septum with abnormal motion secondary to abnormal conduction. Identified ischemia at 89% MHR in area of LAD. Disorders of bursae and tend ons in shoulder region, unspecified 11/27/2008 12/02/2011 documented as of this encounter (statuses as of 02/11/2023) [facility]-19-2021 History of Past illness Narrative* Problem Noted Date Resolved Date Abnormal stress echocardiogram 01/14/2021 0 03/12/2021 Overview: 01/21/[address] Barragan: right dominant. LMT min luminal, LAD mild diffuse, LCx mild luminal with large caliber nondominant vessel extending into a single large obtuse marginal branch, proximal vessel is mildly calcified +mild luminal irreg, RCA 40% Large-caliber dominant vessel: moderate calcification from the proximal to mid vessel, mild diffuse ectatic disease proximal.The ostium of the PDA and posterior ventricular branches diffuse 30 to 40% luminal stenosis. 01/07/2021 2D echocardiogram: LV size and systolic function normal, ejection fraction 57%. LV size and systolic function normal. LA plus RA normal size. Trace MVI, trace TBI. No significant valve disease. Normal great vessels. Intraventricular septum with abnormal motion secondary to abnormal conduction. Identified ischemia at 89% MHR in area of LAD. Disorders of bursae and tend ons in shoulder region, unspecified 11/27/2008 12/02/2011 documented as of this encounter (statuses as of 02/14/2023) [facility]-19-2021 History of Past illness Narrative* Problem Noted Date Resolved Date Abnormal stress echocardiogram 01/14/2021 0 03/12/2021 Overview: 01/21/[address] Barragan: right dominant. LMT min luminal, LAD mild diffuse, LCx mild luminal with large caliber nondominant vessel extending into a single large obtuse marginal branch, proximal vessel is mildly calcified +mild luminal irreg, RCA 40% Large-caliber dominant vessel: moderate calcification from the proximal to mid vessel, mild diffuse ectatic disease proximal.The ostium of the PDA and posterior ventricular branches diffuse 30 to 40% luminal stenosis. 01/07/2021 2D echocardiogram: LV size and systolic function normal, ejection fraction 57%. LV size and systolic function normal. LA plus RA normal size. Trace MVI, trace TBI. No significant valve disease. Normal great vessels. Intraventricular septum with abnormal motion secondary to abnormal conduction. Identified ischemia at 89% MHR in area of LAD. Disorders of bursae and tend ons in shoulder region, unspecified 11/27/2008 12/02/2011 documented as of this encounter (statuses as of 02/16/2023) [facility]-19-2021 History of Past illness Narrative* Problem Noted Date Resolved Date Abnormal stress echocardiogram 01/14/2021 0 03/12/2021 Overview: 01/21/[address] Barragan: right dominant. LMT min luminal, LAD mild diffuse, LCx mild luminal with large caliber nondominant vessel extending into a single large obtuse marginal branch, proximal vessel is mildly calcified +mild luminal irreg, RCA 40% Large-caliber dominant vessel: moderate calcification from the proximal to mid vessel, mild diffuse ectatic disease proximal.The ostium of the PDA and posterior ventricular branches diffuse 30 to 40% luminal stenosis. 01/07/2021 2D echocardiogram: LV size and systolic function normal, ejection fraction 57%. LV size and systolic function normal. LA plus RA normal size. Trace MVI, trace TBI. No significant valve disease. Normal great vessels. Intraventricular septum with abnormal motion secondary to abnormal conduction. Identified ischemia at 89% MHR in area of LAD. Disorders of bursae and tend ons in shoulder region, unspecified 11/27/2008 12/02/2011 documented as of this encounter (statuses as of 02/25/2023) [facility]-19-2021 History of Past illness Narrative* Problem Noted Date Resolved Date Abnormal stress echocardiogram 01/14/2021 0 03/12/2021 Overview: 01/21/[address] Barragan: right dominant. LMT min luminal, LAD mild diffuse, LCx mild luminal with large caliber nondominant vessel extending into a single large obtuse marginal branch, proximal vessel is mildly calcified +mild luminal irreg, RCA 40% Large-caliber dominant vessel: moderate calcification from the proximal to mid vessel, mild diffuse ectatic disease proximal.The ostium of the PDA and posterior ventricular branches diffuse 30 to 40% luminal stenosis. 01/07/2021 2D echocardiogram: LV size and systolic function normal, ejection fraction 57%. LV size and systolic function normal. LA plus RA normal size. Trace MVI, trace TBI. No significant valve disease. Normal great vessels. Intraventricular septum with abnormal motion secondary to abnormal conduction. Identified ischemia at 89% MHR in area of LAD. Disorders of bursae and tend ons in shoulder region, unspecified 11/27/2008 12/02/2011 documented as of this encounter (statuses as of 02/28/2023) [facility]-19-2021 History of Past illness Narrative* Problem Noted Date Resolved Date Abnormal stress echocardiogram 01/14/2021 0 03/12/2021 Overview: 01/21/[address] Barragan: right dominant. LMT min luminal, LAD mild diffuse, LCx mild luminal with large caliber nondominant vessel extending into a single large obtuse marginal branch, proximal vessel is mildly calcified +mild luminal irreg, RCA 40% Large-caliber dominant vessel: moderate calcification from the proximal to mid vessel, mild diffuse ectatic disease proximal.The ostium of the PDA and posterior ventricular branches diffuse 30 to 40% luminal stenosis. 01/07/2021 2D echocardiogram: LV size and systolic function normal, ejection fraction 57%. LV size and systolic function normal. LA plus RA normal size. Trace MVI, trace TBI. No significant valve disease. Normal great vessels. Intraventricular septum with abnormal motion secondary to abnormal conduction. Identified ischemia at 89% MHR in area of LAD. Disorders of bursae and tend ons in shoulder region, unspecified 11/27/2008 12/02/2011 documented as of this encounter (statuses as of 03/02/2023) [facility]-19-2021 History of Past illness Narrative* Problem Noted Date Diagnosed Date Resolved Date Abnormal stress echocardiogram 01/14/2021 03/12/2021 Overview: 01/21/[address] Barragan: right dominant. LMT min luminal, LAD mild diffuse, LCx mild luminal with large caliber nondominant vessel extending into a single large obtuse marginal branch, proximal vessel is mildly calcified +mild luminal irreg, RCA 40% Large-caliber dominant vessel: moderate calcification from the proximal to mid vessel, mild diffuse ectatic disease proximal.The ostium of the PDA and posterior ventricular branches diffuse 30 to 40% luminal stenosis. 01/07/2021 2D echocardiogram: LV size and systolic function normal, ejection fraction 57%. LV size and systolic function normal. LA plus RA normal size. Trace MVI, trace TBI. No significant valve disease. Normal great vessels. Intraventricular septum with abnormal motion secondary to abnormal conduction. Identified ischemia at 89% MHR in area of LAD. Disorders of bursae and tend ons in shoulder region, unspecified 11/27/2008 12/02/2011 documented as of this encounter (statuses as of 03/09/2023) [facility]-19-2021 History of Past illness Narrative* Problem Noted Date Diagnosed Date Resolved Date Abnormal stress echocardiogram 01/14/2021 03/12/2021 Overview: 01/21/[address] Barragan: right dominant. LMT min luminal, LAD mild diffuse, LCx mild luminal with large caliber nondominant vessel extending into a single large obtuse marginal branch, proximal vessel is mildly calcified +mild luminal irreg, RCA 40% Large-caliber dominant vessel: moderate calcification from the proximal to mid vessel, mild diffuse ectatic disease proximal.The ostium of the PDA and posterior ventricular branches diffuse 30 to 40% luminal stenosis. 01/07/2021 2D echocardiogram: LV size and systolic function normal, ejection fraction 57%. LV size and systolic function normal. LA plus RA normal size. Trace MVI, trace TBI. No significant valve disease. Normal great vessels. Intraventricular septum with abnormal motion secondary to abnormal conduction. Identified ischemia at 89% MHR in area of LAD. Disorders of bursae and tend ons in shoulder region, unspecified 11/27/2008 12/02/2011 documented as of this encounter (statuses as of 03/11/2023) [facility]-19[facility]2021 History of Past illness Narrative* Problem Noted Date Diagnosed Date Resolved Date Abnormal stress echocardiogram 01/14/2021 03/12/2021 Overview: 01/21/[address] Barragan: right dominant. LMT min luminal, LAD mild diffuse, LCx mild luminal with large caliber nondominant vessel extending into a single large obtuse marginal branch, proximal vessel is mildly calcified +mild luminal irreg, RCA 40% Large-caliber dominant vessel: moderate calcification from the proximal to mid vessel, mild diffuse ectatic disease proximal.The ostium of the PDA and posterior ventricular branches diffuse 30 to 40% luminal stenosis. 01/07/2021 2D echocardiogram: LV size and systolic function normal, ejection fraction 57%. LV size and systolic function normal. LA plus RA normal size. Trace MVI, trace TBI. No significant valve disease. Normal great vessels. Intraventricular septum with abnormal motion secondary to abnormal conduction. Identified ischemia at 89% MHR in area of LAD. Disorders of bursae and tend ons in shoulder region, unspecified 11/27/2008 12/02/2011 documented as of this encounter (statuses as of 03/14/2023) [facility]-19-2021 History of Past illness Narrative* Problem Noted Date Diagnosed Date Resolved Date Abnormal stress echocardiogram 01/14/2021 03/12/2021 Overview: 01/21/[address] Barragan: right dominant. LMT min luminal, LAD mild diffuse, LCx mild luminal with large caliber nondominant vessel extending into a single large obtuse marginal branch, proximal vessel is mildly calcified +mild luminal irreg, RCA 40% Large-caliber dominant vessel: moderate calcification from the proximal to mid vessel, mild diffuse ectatic disease proximal.The ostium of the PDA and posterior ventricular branches diffuse 30 to 40% luminal stenosis. 01/07/2021 2D echocardiogram: LV size and systolic function normal, ejection fraction 57%. LV size and systolic function normal. LA plus RA normal size. Trace MVI, trace TBI. No significant valve disease. Normal great vessels. Intraventricular septum with abnormal motion secondary to abnormal conduction. Identified ischemia at 89% MHR in area of LAD. Disorders of bursae and tend ons in shoulder region, unspecified 11/27/2008 12/02/2011 documented as of this encounter (statuses as of 04/01/2023) [facility]-19-2021 History of Past illness Narrative* Problem Noted Date Diagnosed Date Resolved Date Abnormal stress echocardiogram 01/14/2021 03/12/2021 Overview: 01/21/[address] Barragan: right dominant. LMT min luminal, LAD mild diffuse, LCx mild luminal with large caliber nondominant vessel extending into a single large obtuse marginal branch, proximal vessel is mildly calcified +mild luminal irreg, RCA 40% Large-caliber dominant vessel: moderate calcification from the proximal to mid vessel, mild diffuse ectatic disease proximal.The ostium of the PDA and posterior ventricular branches diffuse 30 to 40% luminal stenosis. 01/07/2021 2D echocardiogram: LV size and systolic function normal, ejection fraction 57%. LV size and systolic function normal. LA plus RA normal size. Trace MVI, trace TBI. No significant valve disease. Normal great vessels. Intraventricular septum with abnormal motion secondary to abnormal conduction. Identified ischemia at 89% MHR in area of LAD. Disorders of bursae and tend ons in shoulder region, unspecified 11/27/2008 12/02/2011 documented as of this encounter (statuses as of 04/12/2023) [facility]-19-2021 History of Past illness Narrative* Problem Noted Date Diagnosed Date Resolved Date Abnormal stress echocardiogram 01/14/2021 03/12/2021 Overview: 01/21/[address] Barragan: right dominant. LMT min luminal, LAD mild diffuse, LCx mild luminal with large caliber nondominant vessel extending into a single large obtuse marginal branch, proximal vessel is mildly calcified +mild luminal irreg, RCA 40% Large-caliber dominant vessel: moderate calcification from the proximal to mid vessel, mild diffuse ectatic disease proximal.The ostium of the PDA and posterior ventricular branches diffuse 30 to 40% luminal stenosis. 01/07/2021 2D echocardiogram: LV size and systolic function normal, ejection fraction 57%. LV size and systolic function normal. LA plus RA normal size. Trace MVI, trace TBI. No significant valve disease. Normal great vessels. Intraventricular septum with abnormal motion secondary to abnormal conduction. Identified ischemia at 89% MHR in area of LAD. Disorders of bursae and tend ons in shoulder region, unspecified 11/27/2008 12/02/2011 documented as of this encounter (statuses as of 05/04/2023) [facility]-19-2021 History of Past illness Narrative* Problem Noted Date Diagnosed Date Resolved Date Abnormal stress echocardiogram 01/14/2021 03/12/2021 Overview: 01/21/[address] Barragan: right dominant. LMT min luminal, LAD mild diffuse, LCx mild luminal with large caliber nondominant vessel extending into a single large obtuse marginal branch, proximal vessel is mildly calcified +mild luminal irreg, RCA 40% Large-caliber dominant vessel: moderate calcification from the proximal to mid vessel, mild diffuse ectatic disease proximal.The ostium of the PDA and posterior ventricular branches diffuse 30 to 40% luminal stenosis. 01/07/2021 2D echocardiogram: LV size and systolic function normal, ejection fraction 57%. LV size and systolic function normal. LA plus RA normal size. Trace MVI, trace TBI. No significant valve disease. Normal great vessels. Intraventricular septum with abnormal motion secondary to abnormal conduction. Identified ischemia at 89% MHR in area of LAD. Disorders of bursae and tend ons in shoulder region, unspecified 11/27/2008 12/02/2011 documented as of this encounter (statuses as of 05/04/2023) [facility]-19-2021 History of Past illness Narrative* Problem Noted Date Diagnosed Date Resolved Date Abnormal stress echocardiogram 01/14/2021 03/12/2021 Overview: 01/21/[address] Barragan: right dominant. LMT min luminal, LAD mild diffuse, LCx mild luminal with large caliber nondominant vessel extending into a single large obtuse marginal branch, proximal vessel is mildly calcified +mild luminal irreg, RCA 40% Large-caliber dominant vessel: moderate calcification from the proximal to mid vessel, mild diffuse ectatic disease proximal.The ostium of the PDA and posterior ventricular branches diffuse 30 to 40% luminal stenosis. 01/07/2021 2D echocardiogram: LV size and systolic function normal, ejection fraction 57%. LV size and systolic function normal. LA plus RA normal size. Trace MVI, trace TBI. No significant valve disease. Normal great vessels. Intraventricular septum with abnormal motion secondary to abnormal conduction. Identified ischemia at 89% MHR in area of LAD. Disorders of bursae and tend ons in shoulder region, unspecified 11/27/2008 12/02/2011 documented as of this encounter (statuses as of 05/10/2023) [facility]-19-2021 History of Past illness Narrative* Problem Noted Date Diagnosed Date Resolved Date Abnormal stress echocardiogram 01/14/2021 03/12/2021 Overview: 01/21/[address] Barragan: right dominant. LMT min luminal, LAD mild diffuse, LCx mild luminal with large caliber nondominant vessel extending into a single large obtuse marginal branch, proximal vessel is mildly calcified +mild luminal irreg, RCA 40% Large-caliber dominant vessel: moderate calcification from the proximal to mid vessel, mild diffuse ectatic disease proximal.The ostium of the PDA and posterior ventricular branches diffuse 30 to 40% luminal stenosis. 01/07/2021 2D echocardiogram: LV size and systolic function normal, ejection fraction 57%. LV size and systolic function normal. LA plus RA normal size. Trace MVI, trace TBI. No significant valve disease. Normal great vessels. Intraventricular septum with abnormal motion secondary to abnormal conduction. Identified ischemia at 89% MHR in area of LAD. Disorders of bursae and tend ons in shoulder region, unspecified 11/27/2008 12/02/2011 documented as of this encounter (statuses as of 05/14/2023) [facility]-19[facility]2021 History of Past illness Narrative* Problem Noted Date Diagnosed Date Resolved Date Abnormal stress echocardiogram 01/14/2021 03/12/2021 Overview: 01/21/[address] Barragan: right dominant. LMT min luminal, LAD mild diffuse, LCx mild luminal with large caliber nondominant vessel extending into a single large obtuse marginal branch, proximal vessel is mildly calcified +mild luminal irreg, RCA 40% Large-caliber dominant vessel: moderate calcification from the proximal to mid vessel, mild diffuse ectatic disease proximal.The ostium of the PDA and posterior ventricular branches diffuse 30 to 40% luminal stenosis. 01/07/2021 2D echocardiogram: LV size and systolic function normal, ejection fraction 57%. LV size and systolic function normal. LA plus RA normal size. Trace MVI, trace TBI. No significant valve disease. Normal great vessels. Intraventricular septum with abnormal motion secondary to abnormal conduction. Identified ischemia at 89% MHR in area of LAD. Disorders of bursae and tend ons in shoulder region, unspecified 11/27/2008 12/02/2011 documented as of this encounter (statuses as of 05/19/2023) [facility]19[facility]2021 History of Past illness Narrative* Problem Noted Date Diagnosed Date Resolved Date Abnormal stress echocardiogram 01/14/2021 03/12/2021 Overview: 01/21/[address] Barragan: right dominant. LMT min luminal, LAD mild diffuse, LCx mild luminal with large caliber nondominant vessel extending into a single large obtuse marginal branch, proximal vessel is mildly calcified +mild luminal irreg, RCA 40% Large-caliber dominant vessel: moderate calcification from the proximal to mid vessel, mild diffuse ectatic disease proximal.The ostium of the PDA and posterior ventricular branches diffuse 30 to 40% luminal stenosis. 01/07/2021 2D echocardiogram: LV size and systolic function normal, ejection fraction 57%. LV size and systolic function normal. LA plus RA normal size. Trace MVI, trace TBI. No significant valve disease. Normal great vessels. Intraventricular septum with abnormal motion secondary to abnormal conduction. Identified ischemia at 89% MHR in area of LAD. Disorders of bursae and tend ons in shoulder region, unspecified 11/27/2008 12/02/2011 documented as of this encounter (statuses as of 05/24/2023) [facility]-19[facility]2021 History of Past illness Narrative* Problem Noted Date Diagnosed Date Resolved Date Abnormal stress echocardiogram 01/14/2021 03/12/2021 Overview: 01/21/[address] Barragan: right dominant. LMT min luminal, LAD mild diffuse, LCx mild luminal with large caliber nondominant vessel extending into a single large obtuse marginal branch, proximal vessel is mildly calcified +mild luminal irreg, RCA 40% Large-caliber dominant vessel: moderate calcification from the proximal to mid vessel, mild diffuse ectatic disease proximal.The ostium of the PDA and posterior ventricular branches diffuse 30 to 40% luminal stenosis. 01/07/2021 2D echocardiogram: LV size and systolic function normal, ejection fraction 57%. LV size and systolic function normal. LA plus RA normal size. Trace MVI, trace TBI. No significant valve disease. Normal great vessels. Intraventricular septum with abnormal motion secondary to abnormal conduction. Identified ischemia at 89% MHR in area of LAD. Disorders of bursae and tend ons in shoulder region, unspecified 11/27/2008 12/02/2011 documented as of this encounter (statuses as of 05/28/2023) [facility]19[facility]2021 History of Past illness Narrative* Problem Noted Date Diagnosed Date Resolved Date Abnormal stress echocardiogram 01/14/2021 03/12/2021 Overview: 01/21/[address] Barragan: right dominant. LMT min luminal, LAD mild diffuse, LCx mild luminal with large caliber nondominant vessel extending into a single large obtuse marginal branch, proximal vessel is mildly calcified +mild luminal irreg, RCA 40% Large-caliber dominant vessel: moderate calcification from the proximal to mid vessel, mild diffuse ectatic disease proximal.The ostium of the PDA and posterior ventricular branches diffuse 30 to 40% luminal stenosis. 01/07/2021 2D echocardiogram: LV size and systolic function normal, ejection fraction 57%. LV size and systolic function normal. LA plus RA normal size. Trace MVI, trace TBI. No significant valve disease. Normal great vessels. Intraventricular septum with abnormal motion secondary to abnormal conduction. Identified ischemia at 89% MHR in area of LAD. Disorders of bursae and tend ons in shoulder region, unspecified 11/27/2008 12/02/2011 documented as of this encounter (statuses as of 06/07/2023) [facility]05-19-2021 History of Past illness Narrative* Problem Noted Date Diagnosed Date Resolved Date Abnormal stress echocardiogram 01/14/2021 03/12/2021 Overview: 01/21/[address] Barragan: right dominant. LMT min luminal, LAD mild diffuse, LCx mild luminal with large caliber nondominant vessel extending into a single large obtuse marginal branch, proximal vessel is mildly calcified +mild luminal irreg, RCA 40% Large-caliber dominant vessel: moderate calcification from the proximal to mid vessel, mild diffuse ectatic disease proximal.The ostium of the PDA and posterior ventricular branches diffuse 30 to 40% luminal stenosis. 01/07/2021 2D echocardiogram: LV size and systolic function normal, ejection fraction 57%. LV size and systolic function normal. LA plus RA normal size. Trace MVI, trace TBI. No significant valve disease. Normal great vessels. Intraventricular septum with abnormal motion secondary to abnormal conduction. Identified ischemia at 89% MHR in area of LAD. Disorders of bursae and tend ons in shoulder region, unspecified 11/27/2008 12/02/2011 documented as of this encounter (statuses as of 06/13/2023) [facility]05-19-2021 History of Past illness Narrative* Problem Noted Date Diagnosed Date Resolved Date Abnormal stress echocardiogram 01/14/2021 03/12/2021 Overview: 01/21/[address] Barragan: right dominant. LMT min luminal, LAD mild diffuse, LCx mild luminal with large caliber nondominant vessel extending into a single large obtuse marginal branch, proximal vessel is mildly calcified +mild luminal irreg, RCA 40% Large-caliber dominant vessel: moderate calcification from the proximal to mid vessel, mild diffuse ectatic disease proximal.The ostium of the PDA and posterior ventricular branches diffuse 30 to 40% luminal stenosis. 01/07/2021 2D echocardiogram: LV size and systolic function normal, ejection fraction 57%. LV size and systolic function normal. LA plus RA normal size. Trace MVI, trace TBI. No significant valve disease. Normal great vessels. Intraventricular septum with abnormal motion secondary to abnormal conduction. Identified ischemia at 89% MHR in area of LAD. Disorders of bursae and tend ons in shoulder region, unspecified 11/27/2008 12/02/2011 documented as of this encounter (statuses as of 06/15/2023) [facility]05-19-2021 History of Past illness Narrative* Problem Noted Date Diagnosed Date Resolved Date Abnormal stress echocardiogram 01/14/2021 03/12/2021 Overview: 01/21/[address] Barragan: right dominant. LMT min luminal, LAD mild diffuse, LCx mild luminal with large caliber nondominant vessel extending into a single large obtuse marginal branch, proximal vessel is mildly calcified +mild luminal irreg, RCA 40% Large-caliber dominant vessel: moderate calcification from the proximal to mid vessel, mild diffuse ectatic disease proximal.The ostium of the PDA and posterior ventricular branches diffuse 30 to 40% luminal stenosis. 01/07/2021 2D echocardiogram: LV size and systolic function normal, ejection fraction 57%. LV size and systolic function normal. LA plus RA normal size. Trace MVI, trace TBI. No significant valve disease. Normal great vessels. Intraventricular septum with abnormal motion secondary to abnormal conduction. Identified ischemia at 89% MHR in area of LAD. Disorders of bursae and tend ons in shoulder region, unspecified 11/27/2008 12/02/2011 documented as of this encounter (statuses as of 06/22/2023) [facility]-19-2021 History of Past illness Narrative* Problem Noted Date Diagnosed Date Resolved Date Abnormal stress echocardiogram 01/14/2021 03/12/2021 Overview: 01/21/[address] Barragan: right dominant. LMT min luminal, LAD mild diffuse, LCx mild luminal with large caliber nondominant vessel extending into a single large obtuse marginal branch, proximal vessel is mildly calcified +mild luminal irreg, RCA 40% Large-caliber dominant vessel: moderate calcification from the proximal to mid vessel, mild diffuse ectatic disease proximal.The ostium of the PDA and posterior ventricular branches diffuse 30 to 40% luminal stenosis. 01/07/2021 2D echocardiogram: LV size and systolic function normal, ejection fraction 57%. LV size and systolic function normal. LA plus RA normal size. Trace MVI, trace TBI. No significant valve disease. Normal great vessels. Intraventricular septum with abnormal motion secondary to abnormal conduction. Identified ischemia at 89% MHR in area of LAD. Disorders of bursae and tend ons in shoulder region, unspecified 11/27/2008 12/02/2011 documented as of this encounter (statuses as of 07/03/2023) [facility]-19-2021 History of Past illness Narrative* Problem Noted Date Diagnosed Date Resolved Date Abnormal stress echocardiogram 01/14/2021 03/12/2021 Overview: 01/21/[address] Barragan: right dominant. LMT min luminal, LAD mild diffuse, LCx mild luminal with large caliber nondominant vessel extending into a single large obtuse marginal branch, proximal vessel is mildly calcified +mild luminal irreg, RCA 40% Large-caliber dominant vessel: moderate calcification from the proximal to mid vessel, mild diffuse ectatic disease proximal.The ostium of the PDA and posterior ventricular branches diffuse 30 to 40% luminal stenosis. 01/07/2021 2D echocardiogram: LV size and systolic function normal, ejection fraction 57%. LV size and systolic function normal. LA plus RA normal size. Trace MVI, trace TBI. No significant valve disease. Normal great vessels. Intraventricular septum with abnormal motion secondary to abnormal conduction. Identified ischemia at 89% MHR in area of LAD. Disorders of bursae and tend ons in shoulder region, unspecified 11/27/2008 12/02/2011 documented as of this encounter (statuses as of 07/11/2023) [facility]-19-2021 History of Past illness Narrative* Problem Noted Date Diagnosed Date Resolved Date Abnormal stress echocardiogram 01/14/2021 03/12/2021 Overview: 01/21/[address] Barragan: right dominant. LMT min luminal, LAD mild diffuse, LCx mild luminal with large caliber nondominant vessel extending into a single large obtuse marginal branch, proximal vessel is mildly calcified +mild luminal irreg, RCA 40% Large-caliber dominant vessel: moderate calcification from the proximal to mid vessel, mild diffuse ectatic disease proximal.The ostium of the PDA and posterior ventricular branches diffuse 30 to 40% luminal stenosis. 01/07/2021 2D echocardiogram: LV size and systolic function normal, ejection fraction 57%. LV size and systolic function normal. LA plus RA normal size. Trace MVI, trace TBI. No significant valve disease. Normal great vessels. Intraventricular septum with abnormal motion secondary to abnormal conduction. Identified ischemia at 89% MHR in area of LAD. Disorders of bursae and tend ons in shoulder region, unspecified 11/27/2008 12/02/2011 documented as of this encounter (statuses as of 07/29/2023) [facility]-19-2021 History of Past illness Narrative* Problem Noted Date Diagnosed Date Resolved Date Abnormal stress echocardiogram 01/14/2021 03/12/2021 Overview: 01/21/[address] Barragan: right dominant. LMT min luminal, LAD mild diffuse, LCx mild luminal with large caliber nondominant vessel extending into a single large obtuse marginal branch, proximal vessel is mildly calcified +mild luminal irreg, RCA 40% Large-caliber dominant vessel: moderate calcification from the proximal to mid vessel, mild diffuse ectatic disease proximal.The ostium of the PDA and posterior ventricular branches diffuse 30 to 40% luminal stenosis. 01/07/2021 2D echocardiogram: LV size and systolic function normal, ejection fraction 57%. LV size and systolic function normal. LA plus RA normal size. Trace MVI, trace TBI. No significant valve disease. Normal great vessels. Intraventricular septum with abnormal motion secondary to abnormal conduction. Identified ischemia at 89% MHR in area of LAD. Disorders of bursae and tend ons in shoulder region, unspecified 11/27/2008 12/02/2011 documented as of this encounter (statuses as of 08/02/2023) [facility]-19-2021 History of Past illness Narrative* Problem Noted Date Diagnosed Date Resolved Date Abnormal stress echocardiogram 01/14/2021 03/12/2021 Overview: 01/21/[address] Barragan: right dominant. LMT min luminal, LAD mild diffuse, LCx mild luminal with large caliber nondominant vessel extending into a single large obtuse marginal branch, proximal vessel is mildly calcified +mild luminal irreg, RCA 40% Large-caliber dominant vessel: moderate calcification from the proximal to mid vessel, mild diffuse ectatic disease proximal.The ostium of the PDA and posterior ventricular branches diffuse 30 to 40% luminal stenosis. 01/07/2021 2D echocardiogram: LV size and systolic function normal, ejection fraction 57%. LV size and systolic function normal. LA plus RA normal size. Trace MVI, trace TBI. No significant valve disease. Normal great vessels. Intraventricular septum with abnormal motion secondary to abnormal conduction. Identified ischemia at 89% MHR in area of LAD. Disorders of bursae and tend ons in shoulder region, unspecified 11/27/2008 12/02/2011 documented as of this encounter (statuses as of 08/03/2023) [facility]-19-2021 History of Past illness Narrative* Problem Noted Date Diagnosed Date Resolved Date Abnormal stress echocardiogram 01/14/2021 03/12/2021 Overview: 01/21/[address] Barragan: right dominant. LMT min luminal, LAD mild diffuse, LCx mild luminal with large caliber nondominant vessel extending into a single large obtuse marginal branch, proximal vessel is mildly calcified +mild luminal irreg, RCA 40% Large-caliber dominant vessel: moderate calcification from the proximal to mid vessel, mild diffuse ectatic disease proximal.The ostium of the PDA and posterior ventricular branches diffuse 30 to 40% luminal stenosis. 01/07/2021 2D echocardiogram: LV size and systolic function normal, ejection fraction 57%. LV size and systolic function normal. LA plus RA normal size. Trace MVI, trace TBI. No significant valve disease. Normal great vessels. Intraventricular septum with abnormal motion secondary to abnormal conduction. Identified ischemia at 89% MHR in area of LAD. Disorders of bursae and tend ons in shoulder region, unspecified 11/27/2008 12/02/2011 documented as of this encounter (statuses as of 08/10/2023) [facility]-19-2021 History of Past illness Narrative* Problem Noted Date Diagnosed Date Resolved Date Abnormal stress echocardiogram 01/14/2021 03/12/2021 Overview: 01/21/[address] Barragan: right dominant. LMT min luminal, LAD mild diffuse, LCx mild luminal with large caliber nondominant vessel extending into a single large obtuse marginal branch, proximal vessel is mildly calcified +mild luminal irreg, RCA 40% Large-caliber dominant vessel: moderate calcification from the proximal to mid vessel, mild diffuse ectatic disease proximal.The ostium of the PDA and posterior ventricular branches diffuse 30 to 40% luminal stenosis. 01/07/2021 2D echocardiogram: LV size and systolic function normal, ejection fraction 57%. LV size and systolic function normal. LA plus RA normal size. Trace MVI, trace TBI. No significant valve disease. Normal great vessels. Intraventricular septum with abnormal motion secondary to abnormal conduction. Identified ischemia at 89% MHR in area of LAD. Disorders of bursae and tend ons in shoulder region, unspecified 11/27/2008 12/02/2011 documented as of this encounter (statuses as of 08/10/2023) [facility]-19-2021 History of Past illness Narrative* Problem Noted Date Diagnosed Date Resolved Date Abnormal stress echocardiogram 01/14/2021 03/12/2021 Overview: 01/21/[address] Barragan: right dominant. LMT min luminal, LAD mild diffuse, LCx mild luminal with large caliber nondominant vessel extending into a single large obtuse marginal branch, proximal vessel is mildly calcified +mild luminal irreg, RCA 40% Large-caliber dominant vessel: moderate calcification from the proximal to mid vessel, mild diffuse ectatic disease proximal.The ostium of the PDA and posterior ventricular branches diffuse 30 to 40% luminal stenosis. 01/07/2021 2D echocardiogram: LV size and systolic function normal, ejection fraction 57%. LV size and systolic function normal. LA plus RA normal size. Trace MVI, trace TBI. No significant valve disease. Normal great vessels. Intraventricular septum with abnormal motion secondary to abnormal conduction. Identified ischemia at 89% MHR in area of LAD. Disorders of bursae and tend ons in shoulder region, unspecified 11/27/2008 12/02/2011 documented as of this encounter (statuses as of 10/03/2023) [facility]-19-2021 History of Past illness Narrative* Problem Noted Date Diagnosed Date Resolved Date Abnormal stress echocardiogram 01/14/2021 03/12/2021 Overview: 01/21/[address] Barragan: right dominant. LMT min luminal, LAD mild diffuse, LCx mild luminal with large caliber nondominant vessel extending into a single large obtuse marginal branch, proximal vessel is mildly calcified +mild luminal irreg, RCA 40% Large-caliber dominant vessel: moderate calcification from the proximal to mid vessel, mild diffuse ectatic disease proximal.The ostium of the PDA and posterior ventricular branches diffuse 30 to 40% luminal stenosis. 01/07/2021 2D echocardiogram: LV size and systolic function normal, ejection fraction 57%. LV size and systolic function normal. LA plus RA normal size. Trace MVI, trace TBI. No significant valve disease. Normal great vessels. Intraventricular septum with abnormal motion secondary to abnormal conduction. Identified ischemia at 89% MHR in area of LAD. Disorders of bursae and tend ons in shoulder region, unspecified 11/27/2008 12/02/2011 documented as of this encounter (statuses as of 10/04/2023) [facility]-19-2021 History of Past illness Narrative* Problem Noted Date Diagnosed Date Resolved Date Abnormal stress echocardiogram 01/14/2021 03/12/2021 Overview: 01/21/[address] Barragan: right dominant. LMT min luminal, LAD mild diffuse, LCx mild luminal with large caliber nondominant vessel extending into a single large obtuse marginal branch, proximal vessel is mildly calcified +mild luminal irreg, RCA 40% Large-caliber dominant vessel: moderate calcification from the proximal to mid vessel, mild diffuse ectatic disease proximal.The ostium of the PDA and posterior ventricular branches diffuse 30 to 40% luminal stenosis. 01/07/2021 2D echocardiogram: LV size and systolic function normal, ejection fraction 57%. LV size and systolic function normal. LA plus RA normal size. Trace MVI, trace TBI. No significant valve disease. Normal great vessels. Intraventricular septum with abnormal motion secondary to abnormal conduction. Identified ischemia at 89% MHR in area of LAD. Disorders of bursae and tend ons in shoulder region, unspecified 11/27/2008 12/02/2011 documented as of this encounter (statuses as of 10/05/2023) [facility]05-19-2021 History of Past illness Narrative* Problem Noted Date Diagnosed Date Resolved Date Abnormal stress echocardiogram 01/14/2021 03/12/2021 Overview: 01/21/[address] Barragan: right dominant. LMT min luminal, LAD mild diffuse, LCx mild luminal with large caliber nondominant vessel extending into a single large obtuse marginal branch, proximal vessel is mildly calcified +mild luminal irreg, RCA 40% Large-caliber dominant vessel: moderate calcification from the proximal to mid vessel, mild diffuse ectatic disease proximal.The ostium of the PDA and posterior ventricular branches diffuse 30 to 40% luminal stenosis. 01/07/2021 2D echocardiogram: LV size and systolic function normal, ejection fraction 57%. LV size and systolic function normal. LA plus RA normal size. Trace MVI, trace TBI. No significant valve disease. Normal great vessels. Intraventricular septum with abnormal motion secondary to abnormal conduction. Identified ischemia at 89% MHR in area of LAD. Disorders of bursae and tend ons in shoulder region, unspecified 11/27/2008 12/02/2011 documented as of this encounter (statuses as of 10/06/2023) [facility]-19-2021 History of Past illness Narrative* Problem Noted Date Diagnosed Date Resolved Date Abnormal stress echocardiogram 01/14/2021 03/12/2021 Overview: 01/21/[address] Barragan: right dominant. LMT min luminal, LAD mild diffuse, LCx mild luminal with large caliber nondominant vessel extending into a single large obtuse marginal branch, proximal vessel is mildly calcified +mild luminal irreg, RCA 40% Large-caliber dominant vessel: moderate calcification from the proximal to mid vessel, mild diffuse ectatic disease proximal.The ostium of the PDA and posterior ventricular branches diffuse 30 to 40% luminal stenosis. 01/07/2021 2D echocardiogram: LV size and systolic function normal, ejection fraction 57%. LV size and systolic function normal. LA plus RA normal size. Trace MVI, trace TBI. No significant valve disease. Normal great vessels. Intraventricular septum with abnormal motion secondary to abnormal conduction. Identified ischemia at 89% MHR in area of LAD. Disorders of bursae and tend ons in shoulder region, unspecified 11/27/2008 12/02/2011 documented as of this encounter (statuses as of 10/06/2023) [facility]-19-2021 History of Past illness Narrative* Problem Noted Date Diagnosed Date Resolved Date Abnormal stress echocardiogram 01/14/2021 03/12/2021 Overview: 01/21/[address] Barragan: right dominant. LMT min luminal, LAD mild diffuse, LCx mild luminal with large caliber nondominant vessel extending into a single large obtuse marginal branch, proximal vessel is mildly calcified +mild luminal irreg, RCA 40% Large-caliber dominant vessel: moderate calcification from the proximal to mid vessel, mild diffuse ectatic disease proximal.The ostium of the PDA and posterior ventricular branches diffuse 30 to 40% luminal stenosis. 01/07/2021 2D echocardiogram: LV size and systolic function normal, ejection fraction 57%. LV size and systolic function normal. LA plus RA normal size. Trace MVI, trace TBI. No significant valve disease. Normal great vessels. Intraventricular septum with abnormal motion secondary to abnormal conduction. Identified ischemia at 89% MHR in area of LAD. Disorders of bursae and tend ons in shoulder region, unspecified 11/27/2008 12/02/2011 documented as of this encounter (statuses as of 10/17/2023) [facility]-19-2021 History of Past illness Narrative* Problem Noted Date Diagnosed Date Resolved Date Abnormal stress echocardiogram 01/14/2021 03/12/2021 Overview: 01/21/[address] Barragan: right dominant. LMT min luminal, LAD mild diffuse, LCx mild luminal with large caliber nondominant vessel extending into a single large obtuse marginal branch, proximal vessel is mildly calcified +mild luminal irreg, RCA 40% Large-caliber dominant vessel: moderate calcification from the proximal to mid vessel, mild diffuse ectatic disease proximal.The ostium of the PDA and posterior ventricular branches diffuse 30 to 40% luminal stenosis. 01/07/2021 2D echocardiogram: LV size and systolic function normal, ejection fraction 57%. LV size and systolic function normal. LA plus RA normal size. Trace MVI, trace TBI. No significant valve disease. Normal great vessels. Intraventricular septum with abnormal motion secondary to abnormal conduction. Identified ischemia at 89% MHR in area of LAD. Disorders of bursae and tend ons in shoulder region, unspecified 11/27/2008 12/02/2011 documented as of this encounter (statuses as of 10/26/2023) [facility]-19-2021 History of Past illness Narrative* Problem Noted Date Diagnosed Date Resolved Date Abnormal stress echocardiogram 01/14/2021 03/12/2021 Overview: 01/21/[address] Barragan: right dominant. LMT min luminal, LAD mild diffuse, LCx mild luminal with large caliber nondominant vessel extending into a single large obtuse marginal branch, proximal vessel is mildly calcified +mild luminal irreg, RCA 40% Large-caliber dominant vessel: moderate calcification from the proximal to mid vessel, mild diffuse ectatic disease proximal.The ostium of the PDA and posterior ventricular branches diffuse 30 to 40% luminal stenosis. 01/07/2021 2D echocardiogram: LV size and systolic function normal, ejection fraction 57%. LV size and systolic function normal. LA plus RA normal size. Trace MVI, trace TBI. No significant valve disease. Normal great vessels. Intraventricular septum with abnormal motion secondary to abnormal conduction. Identified ischemia at 89% MHR in area of LAD. Disorders of bursae and tend ons in shoulder region, unspecified 11/27/2008 12/02/2011 documented as of this encounter (statuses as of 11/04/2023) [facility]-19[facility]2021 History of Past illness Narrative* Problem Noted Date Diagnosed Date Resolved Date Abnormal stress echocardiogram 01/14/2021 03/12/2021 Overview: 01/21/[address] Barragan: right dominant. LMT min luminal, LAD mild diffuse, LCx mild luminal with large caliber nondominant vessel extending into a single large obtuse marginal branch, proximal vessel is mildly calcified +mild luminal irreg, RCA 40% Large-caliber dominant vessel: moderate calcification from the proximal to mid vessel, mild diffuse ectatic disease proximal.The ostium of the PDA and posterior ventricular branches diffuse 30 to 40% luminal stenosis. 01/07/2021 2D echocardiogram: LV size and systolic function normal, ejection fraction 57%. LV size and systolic function normal. LA plus RA normal size. Trace MVI, trace TBI. No significant valve disease. Normal great vessels. Intraventricular septum with abnormal motion secondary to abnormal conduction. Identified ischemia at 89% MHR in area of LAD. Disorders of bursae and tend ons in shoulder region, unspecified 11/27/2008 12/02/2011 documented as of this encounter (statuses as of 11/22/2023) [facility]-19-2021 History of Past illness Narrative* Problem Noted Date Diagnosed Date Resolved Date Abnormal stress echocardiogram 01/14/2021 03/12/2021 Overview: 01/21/[address] Barragan: right dominant. LMT min luminal, LAD mild diffuse, LCx mild luminal with large caliber nondominant vessel extending into a single large obtuse marginal branch, proximal vessel is mildly calcified +mild luminal irreg, RCA 40% Large-caliber dominant vessel: moderate calcification from the proximal to mid vessel, mild diffuse ectatic disease proximal.The ostium of the PDA and posterior ventricular branches diffuse 30 to 40% luminal stenosis. 01/07/2021 2D echocardiogram: LV size and systolic function normal, ejection fraction 57%. LV size and systolic function normal. LA plus RA normal size. Trace MVI, trace TBI. No significant valve disease. Normal great vessels. Intraventricular septum with abnormal motion secondary to abnormal conduction. Identified ischemia at 89% MHR in area of LAD. Disorders of bursae and tend ons in shoulder region, unspecified 11/27/2008 12/02/2011 documented as of this encounter (statuses as of 12/16/2023) [facility]12-23-2020 History of Present illness Narrative* Xiomara Randolph)Beverly - 08/20/2020 10:20 AM EST Radiology Service Progress Note PATIENT NAME: Gaston Lainez DATE OF SERVICE: August 20, 2020 TIME: 10:19 AM PATIENT IDENTITY VERIFICATION COMPLETED USING TWO (2) IDENTIFIERS: Name and Date of confirmedby patient verbally. FALL SCREENING: Has the patient had 2 falls in the last year or 1 fall with injury or currently using an Ambulatory Assistive Device (Walker, Cane, Wheelchair, Crutches, etc.)? No PATIENT GENDER DATA: Male PATIENT RELEVANT IMPLANT DATA REVIEWED: Not Applicable RADIOLOGY DEPARTMENT: General X-ray: Exam(s) Completed: Chest X-Ray PERIPHERAL IV DATA: Not applicable SIGNED BY: Beverly Nichols August 20, 2020 10:19 AM [facility] History of Present illness Narrative* Chandler Aggarwal Tech (Rt) - 08/11/2020 10:40 AM EST Radiology Service Progress Note PATIENT NAME: Gaston Lainez DATE OF SERVICE: August 11, 2020 TIME: 10:51 AM PATIENT IDENTITY VERIFICATION COMPLETED USING TWO (2) IDENTIFIERS: Name and Date of confirmedby patient verbally. FALL SCREENING: Has the patient had 2 falls in the last year or 1 fall with injury or currently using an Ambulatory Assistive Device (Walker, Cane, Wheelchair, Crutches, etc.)? No PATIENT GENDER DATA: Male PATIENT RELEVANT IMPLANT DATA REVIEWED: Not Applicable RADIOLOGY DEPARTMENT: General X-ray: Exam(s) Completed: Chest X-Ray PERIPHERAL IV DATA: Not applicable SIGNED BY: RT Bryce August 11, 2020 10:51 AM documented in [facility] Clinic[facility] summary Author Jose Juan Christine [facility] Note Date/Time January 16, 2025 2:33a [facility] Medical Records Department [address] [place] [id number] Emergency Department Summary 01/16/25 MR#: [id number] Acct: [id number] Name: SHANIKA LAINEZ Rep #:[id number] : 1950 74 From: Jose Juan Christine MD PCP: Leticia Harding, KITCHEN MECHANIC Status:REG ER Location: ED HPI History of Present Illness Chief Complaint: Laceration Informant: patient and spouse/S.O. Onset/Context/Timing Onset: Today Mechanism/Context: Blunt Injury and Fall Maximum Severity: Mild Associated Symptoms Associated Symptoms: Negative for Parasthesias, Weakness, Loss of function, Inability to ambulate, Loss of consciousness or Amnesia Narrative Narrative: 74-year-old male history of asthma. Rolled out of bed about an hour ago striking his left eyebrow and face on the floor causing laceration. No LOC. Heis on no blood thinners not even aspirin. No vomiting. No headache. No neck pain. states he is at his baseline. He denies any other injuries. They are unsure of his last tetanus. Tetanus Immunization: Unknown Prior similar symptoms: No Recent Illness/Hospitalization: No PFSH [facility] Medical History Asthma Home Medications ?Medication ?Instructions ?Recorded ?Last Taken ?Type quetiapine 25 mg tablet 25 - 50 mg PO QHS PRN Sleep 07/23/19 Unknown History albuterol sulfate 90 mcg/actuation 2 puff inhalation Q 4H PRN PRN Sleep 10/25/20 Unknown History aerosol inhaler fluticasone 250 mcg-salmeterol 50 1 puff inhalation BI D 10/25/20 Unknown History mcg/dose blistr powdr for inhalation albuterol sulfate 90 mcg/actuation 2 puff inhalation Q 4H PRN PRN 01/28/24 Unknown Rx aerosol inhaler (Ventolin HFA) Wheezing ##1 prednisone 20 mg tablet 60 mg (3 x 20 mg) PO DAILY # 15 01/28/24 Unknown Rx TABLETS Allergy/AdvReac Type Severity Reaction Status Date / Time No Known Allergies Allergy Verified 01/16/25 01:12 Social History Smoking Status: Former smoker ROS ROS ED ROS Narrative Denies recent illness. Denies headache. Denies nausea or vomiting. Constitutional Constitutional ED: Denies chills or fever(s) Eyes Eyes: Denies blurry vision ENT ENT ED: Denies ear pain Cardiovascular Cardiovascular: Denies chest pain Respiratory/Chest Respiratory/Chest: Denies cough or dyspnea Gastrointestinal Gastrointestinal: Denies abdominal pain, nausea or vomiting Genitourinary Genitourinary ED: Denies dysuria or hematuria Musculoskeletal Musculoskeletal: Denies arthralgias Integumentary Denies abscess Neurologic Neurologic: Denies headache(s) Psychiatric Psychiatric: Denies anxiety Endocrine Endocrinology: Denies cold intolerance Hematologic/Lymphatic Hematologic/Lymphatic: Denies easy bleeding, easy bruising or lymphadenopathy Allergic/Immunologic Allergic/Immunologic ED: Denies mouth swelling, tongue swelling or urticaria EXAM Physical Exam Narrative Exam Narrative: Well-appearing 74-year-old male. Vital signs stable afebrile. Sitting upright in bed. at bedside. No distress. H EENT exam pupils round reactive light. Extra motions are intact. He has about a 1 to 2 inch laceration along his left eyebrow. Mild bleeding. No significant hematoma. No bony tenderness. Extraocular motions are intact. There is no other swelling or trauma to his face. Scalp is nontender without hematoma. Scant moist mucous membranes. C-spine and trachea are nontender. Back and spine are nontender. Lungs are clear. Heart regular rhythm rate about 70 no murmur. Chest wall ribs nontender. Abdomen soft nontender. Pelvic girdle intact. Moving all 4 extremities. Normal senior art director strength. Normal dorsi plantarflexion. He is able toflex and extend his hips and knees and ankles. No deformity. Neurologically heis awake and alert. He is answering questions following commands. He knows hiswife. He knows the president [place]anyelle states. He knows where he is at. GCS is 15. Const Vital Signs: 01/16/25 01:10 Temperature 97.6 F L Temperature Source Oral Pulse Rate 67 Respiratory Rate 16 Blood Pressure 175/97 H Blood Pressure Mean 123 Pulse Ox 100 Oxygen Delivery Method Room Air Positive well nourished and well developed; Negative for obese, cachectic, contractures or unkempt General Appearance ED: well developed and NAD; Negative for unkempt, cachectic or contractures Nutritional Appearance: Negative for cachectic or obese HEENT HEENT Narrative: Left eyebrow 1 to 2 inch laceration. trauma Eyes PERRL and EOMs intact bilaterally Neck full ROM General: Negative for tenderness Chest Wall inspection of chest normal and palpation of chest normal Resp normal respiratory effort and clear to auscultation bilaterally Cardio regular rhythm, S1 normal heart sound, S2 normal heart sound and no murmurs Rate: regular rate GI normal to inspection, nondistended, normoactive bowel sounds, non-tender, non-distended and no masses Auscultation: normoactive bowel sounds Palpation: soft; Negative for tender, guarding or rebound tenderness present Back/Spine normal to inspection and no thoracic nor lumbar tenderness Extremity normal to inspection and full ROM General Extremety ED: Negative for deformity, edema or tenderness General Extremity: Negative for deformity or edema Neuro oriented x3, CN's II-XII intact bilaterally, moves all extremities and no focal motor deficits Momo Coma Scale: document GCS findings Spontaneous Obeys Commands Oriented 15 Sensorium / Orientation: alert, oriented to person, oriented to place and oriented to time Motor Exam: strength 5/5 throughout Psych mental status grossly normal and thought process normal Appearance: Negative for unkempt Attitude: No agitated Mood & Affect: Negative for depressed, anxious or tearful Skin no rashes or lesions noted, No no wounds, skin turgor normal and no jaundice Skin Narrative: Left eyebrow 1 to 2 inch laceration. PROC Procedures Lacerations Left eyebrow laceration repair:: Length: 1.5 in Depth: Sub Q Shape: Linear Prep: Shure-Clens Laceration repair: Irrigated, Lidocaine with epi, Local and Skin sutures Number of Sutures/[place]: 3 Suture Information: Ethilon, Simple and 4-0 Comment: Left eyebrow laceration. 1-1/2 inches. Involves the skin and subcu tissue. Locally anesthetized lidocaine with epinephrine. Cleaned with Shur-Clens. Washed and irrigated with saline. Wound explored. No bony deformity or tenderness. Able to open close his eye. Extract motions are intact. No entrapment. Closed using 3 simple erupted 4-0 Ethilon sutures. Proper MCJ wound closure obtained. Patient tolerated procedure well. They wereinstructed on wound care and head injury. Stitches out in 7 days. Tetanus updated. MDM MDM MDM Narrative Medical decision making narrative: 74-year-old male rolled out of bed about an hour ago. Striking his left forehead. Causing a laceration. Tetanus will be updated. Suture repaired. Heis on no blood thinners and not even aspirin. No LOC. He is neurologically intact. I discussed CAT scan with both he and his and they deferred at this time. Clinically I do not feel its necessary. Repeat exam at 2:30 in the morning after is done suturing his left eyebrow laceration patient doing well. He was offered but did not want anything for discomfort. His neurologic exam is unchanged. Again discussed with both he andhis they deferred any CAT scan at this time. They know when to return and were instructed on head injury instructions. History & Record Review Discussion w/independent historian: Patient and Family Discharge Plan Triage Chief Complaint: Laceration ED Provider: Jose Juan Christine Dx/Rx/DC Orders Clinical Impression: Fall, Eyebrow laceration, Closed head injury Instructions: ED Head Injury (Adult), ED Laceration, All Closures Prescriptions: No Action quetiapine 25 MG tablet 25 - 50 mg PO QHS PRN (Reason: Sleep) Patient Comments: TAKE 1-2 TABS BEFORE BED FOR INSOMNIA NEEDED. fluticasone propion-salmeterol 1 PUFF inhaler 1 puff INHALATION BID albuterol sulfate 1 INHALER inhaler 2 puff INHALATION Q4H PRN PRN (Reason: Sleep) prednisone 20 mg tablet 60 mg PO DAILY Qty: 15 0RF albuterol sulfate [Ventolin HFA] 90 mcg/actuation HFA aerosol inhaler 2 puff inhalation Q4H PRN PRN (Reason: Wheezing) Qty: 1 0RF Primary Care Provider: Leticia Harding Referrals: Letiica Harding CNS [Primary Care Provider] - 7 Days for suture removal Care Physician,No Primary [Non-Staff] - Activity Restrictions/Additional Instructions: Ice to the eyebrow to decrease pain and swelling and decrease bruising. Tylenol for any pain. Return if severe headache, vomiting or not acting himself. He would need a CAT scan then. Follow-up with your primary care provider to get the stitches out in 7 days. Clean the wound daily with just soap and water. Apply antibiotic ointment. If you see any signs of infection pus, redness, fever return. Print Language: Burmese Disposition Disposition: Home, Self Care What to do if you have Problems For any increased pain, shortness of breath, bleeding, nausea or vomiting, chestpain, or any unexpected problems, contact your Primary Care Provider. Call [facility] ([phone]) or report to the closest Emergency Room. Call 911 if necessary. 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 SVT (supraventricular tachycardia) (HCC) Other specified cardiac dysrhythmias Hyperlipidemia, unspecified hyperlipidemia type Obsessive-compulsive disorder, unspecified type MARTELL (generalized anxiety disorder) Generalized anxiety disorder Hallucination, visual Psychophysical visual disturbances 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) Chronic obstructive asthma, unspecified BPH with obstruction/lower urinary tract symptoms Hypertrophy of prostate with urinary obstruction and other lower urinary tract symptoms (LUTS) History of marijuana use Chronic vertigo [facility]* Diagnosis 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 SVT (supraventricular tachycardia) (HCC) Other specified cardiac dysrhythmias Mixed hyperlipidemia Screening for ischemic heart disease Palpitations [facility]* Diagnosis BPH with obstruction/lower urinary tract symptoms Hypertrophy of prostate with urinary obstruction and other lower urinary tract symptoms (LUTS) [facility]* Diagnosis COVID- Primary [facility]* Diagnosis Generalized anxiety disorder- Primary Minor depression Depressive disorder, not elsewhere classified Obsessive-compulsive disorder, unspecified type BPH with obstruction/lower urinary tract symptoms Hypertrophy of prostate with urinary obstruction and other lower urinary tract symptoms (LUTS) Primary insomnia Persistent disorder of initiating or maintaining sleep SVT (supraventricular tachycardia) (HCC) Other specified cardiac dysrhythmias Mixed hyperlipidemia COPD, mild (HCC) Chronic airway obstruction, not elsewhere classified History of marijuana use Daily consumption of alcohol Hyperglycemia Other abnormal glucose [facility]* Diagnosis Generalized anxiety disorder- Primary [facility]* Diagnosis Screening for prostate cancer- Primary Special screening for malignant neoplasm of prostate Erectile dysfunction, unspecified erectile dysfunction type Visual hallucinations Psychophysical visual disturbances Cognitive impairment, mild, so stated Mild cognitive impairment, so stated Test anxiety Other anxiety states Generalized anxiety disorder Obsessive-compulsive disorder, unspecified type [facility]* Diagnosis Acute pain of left shoulder- Primary [facility] Diagnosis Test anxiety Other anxiety states [facility]* Diagnosis Nontraumatic tear of left rotator cuff, unspecified tear extent- Primary Acute pain of left shoulder Other secondary osteoarthritis of left shoulder [facility]* Diagnosis Generalized anxiety disorder- Primary Test anxiety Other anxiety states Obsessive-compulsive disorder, unspecified type Visual hallucinations Psychophysical visual disturbances [facility]* Diagnosis Complete tear of left rotator cuff, unspecified whether traumatic- Primary Failure of rotator cuff repair [facility]* Diagnosis Complete tear of left rotator cuff, unspecified whether traumatic- Primary Failure of rotator cuff repair Acute pain of left shoulder Complete tear of left rotator cuff, unspecified whether traumatic Failure of rotator cuff repair Acute pain of left shoulder documented in this encounter [facility] note* Diagnosis Hyperlipidemia, unspecified hyperlipidemia type SVT (supraventricular tachycardia) (HCC) Other specified cardiac dysrhythmias Complete tear of left rotator cuff, unspecified whether traumatic Failure of rotator cuff repair Acute pain of left shoulder [facility]* Diagnosis Obsessive-compulsive disorder, unspecified type- Primary Generalized anxiety disorder Visual hallucinations Psychophysical visual disturbances Cognitive impairment, mild, so stated Mild cognitive impairment, so stated Dizziness Dizziness and giddiness Complete tear of left rotator cuff, unspecified whether traumatic Failure of rotator cuff repair Acute pain of left shoulder documented in this encounter [facility] note* Diagnosis 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 Mixed hyperlipidemia SVT (supraventricular tachycardia) (HCC) Other specified cardiac dysrhythmias Palpitations Complete tear of left rotator cuff, unspecified whether traumatic Failure of rotator cuff repair Acute pain of left shoulder documented in this encounter [facility] note* Diagnosis Obsessive-compulsive disorder, unspecified type Medication management Encounter for long-term (current) use of other medications BPH with obstruction/lower urinary tract symptoms Hypertrophy of prostate with urinary obstruction and other lower urinary tract symptoms (LUTS) Complete tear of left rotator cuff, unspecified whether traumatic Failure of rotator cuff repair Acute pain of left shoulder documented in this encounter [facility] note* Diagnosis Complete tear of left rotator cuff, unspecified whether traumatic- Primary Failure of rotator cuff repair Acute pain of left shoulder Complete tear of left rotator cuff, unspecified whether traumatic Failure of rotator cuff repair Acute pain of left shoulder documented in this encounter [facility] note* Diagnosis Pre-operative examination- Primary Preoperative examination, unspecified Generalized anxiety disorder Obsessive-compulsive disorder, unspecified type COPD, mild (HCC) Chronic airway obstruction, not elsewhere classified Mixed hyperlipidemia Palpitations SVT (supraventricular tachycardia) (HCC) Other specified cardiac dysrhythmias 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 and other lower urinary tract symptoms (LUTS) Gastroesophageal reflux disease, unspecified whether esophagitis present documented in this encounter [facility] note* Diagnosis S/P reverse total shoulder arthroplasty, left- Primary documented in this encounter [facility] note* Diagnosis S/P reverse total shoulder arthroplasty, left- Primary documented in this encounter [facility] note* Diagnosis Chronic left shoulder pain- Primary Pain in joint, shoulder region documented in this encounter [facility] note* Diagnosis S/P reverse total shoulder arthroplasty, left- Primary documented in this encounter [facility] note* Diagnosis S/P reverse total shoulder arthroplasty, left- Primary [facility]* Diagnosis S/P reverse total shoulder arthroplasty, left- Primary documented in this encounter [facility] note* Diagnosis S/P reverse total shoulder arthroplasty, left- Primary [facility]* Diagnosis S/P reverse total shoulder arthroplasty, left- Primary documented in this encounter [facility] note* Diagnosis Chronic left shoulder pain- Primary Pain in joint, shoulder region [facility]* Diagnosis Status post reverse total replacement of left shoulder- Primary Obsessive-compulsive disorder, unspecified type Minor depression Depressive disorder, not elsewhere classified Generalized anxiety disorder Primary insomnia Persistent disorder of initiating or maintaining sleep Visual hallucinations Psychophysical visual disturbances Cognitive impairment, mild, so stated Mild cognitive impairment, so stated History of marijuana use Habitual alcohol use Alcohol abuse, unspecified 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) SVT (supraventricular tachycardia) (HCC) Other specified cardiac dysrhythmias Palpitations Mixed hyperlipidemia COPD, mild (HCC) Chronic airway obstruction, not elsewhere classified 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) Chronic obstructive asthma, unspecified Major depressive disorder, recurrent, mild (HCC) Major depressive disorder, recurrent episode, mild documented in this encounter [facility] note* Diagnosis S/P reverse total shoulder arthroplasty, left- Primary [facility]* Diagnosis Visual hallucinations- Primary Psychophysical visual disturbances Habitual alcohol use Alcohol abuse, unspecified Cognitive impairment Unspecified persistent mental disorders due to conditions classified elsewhere Orthostatic hypotension Lightheadedness Dizziness and giddiness Palpitation Palpitations [facility]* Diagnosis Orthostatic hypotension Lightheadedness Dizziness and giddiness Palpitation Palpitations [facility]* Diagnosis Low serum vitamin B12- Primary [facility]* Diagnosis 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 Mixed hyperlipidemia Palpitations SVT (supraventricular tachycardia) Other specified cardiac dysrhythmias [facility]* Diagnosis Posterior tibial tendon dysfunction- Primary Other disorders of synovium, tendon, and bursa Skew foot deformity, unspecified laterality Acquired hallux valgus, unspecified laterality [facility]* Diagnosis 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 SVT (supraventricular tachycardia) Other specified cardiac dysrhythmias Mixed hyperlipidemia COPD, mild (HCC) Chronic airway obstruction, not elsewhere classified Generalized anxiety disorder Primary insomnia Persistent disorder of initiating or maintaining sleep Obsessive-compulsive disorder, unspecified type Major depressive disorder, recurrent, mild (HCC) Major depressive disorder, recurrent episode, mild Visual hallucinations Psychophysical visual disturbances Cognitive impairment, mild, so stated Mild cognitive impairment, so stated History of marijuana use Alcohol dependence, daily use (HCC) Other and unspecified alcohol dependence, continuous drinking behavior Gastroesophageal reflux disease, unspecified whether esophagitis present S/P reverse total shoulder arthroplasty, 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 Hypertrophy of prostate with urinary obstruction and other lower urinary tract symptoms (LUTS) Erectile dysfunction, unspecified erectile dysfunction type documented [facility]* Diagnosis Visual hallucinations Psychophysical visual disturbances Cognitive impairment, mild, so stated Mild cognitive impairment, so stated [facility]* Diagnosis Ulcer of buttock (HCC)- Primary [facility]* Diagnosis Visual hallucinations- Primary Psychophysical visual disturbances Mild dementia with agitation, unspecified dementia type ([facility]) [facility]* Diagnosis Burning with urination- Primary Dysuria [facility]* Diagnosis Nocturia- Primary Urinary frequency Elevated PSA Elevated prostate specific antigen (PSA) Microscopic hematuria Screening for prostate cancer Special screening for malignant neoplasm of prostate 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) Mixed hyperlipidemia [facility] Diagnosis Mood disorder (HCC)- Primary Unspecified episodic mood disorder Mixed obsessional thoughts and acts Moderate dementia with other behavioral disturbance, unspecified dementia type (HCC) [facility] Diagnosis 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) Chronic obstructive asthma, unspecified [facility]* Diagnosis APPOINTMENT CANCELLED- Primary [facility]* Diagnosis Major neurocognitive disorder (HCC)- Primary Unspecified persistent mental disorders due to conditions classified elsewhere Visual hallucinations Psychophysical visual disturbances History of trauma Personal history of other injury Restlessness and agitation Other signs and symptoms involving emotional state Delusions (HCC) Unspecified paranoid state History of alcohol abuse Nondependent alcohol abuse, in remission [facility] Diagnosis Neurocognitive disorder- Primary Unspecified persistent mental disorders due to conditions classified elsewhere History of trauma Personal history of other injury Delusions (HCC) Unspecified paranoid state Visual hallucinations Psychophysical visual disturbances Mood disorder (HCC) Unspecified episodic mood disorder Anxiety Anxiety state, unspecified [facility] Diagnosis Claustrophobia- Primary Other isolated or specific phobias [facility]* Diagnosis Major neurocognitive disorder (HCC) Unspecified persistent mental disorders due to conditions classified elsewhere [facility] Diagnosis Major neurocognitive disorder (HCC)- Primary Unspecified persistent mental disorders due to conditions classified elsewhere Visual hallucinations Psychophysical visual disturbances Restlessness and agitation Other signs and symptoms involving emotional state Delusions (HCC) Unspecified paranoid state [facility] Diagnosis Asthma with COPD with exacerbation (HCC) (HCC)- Primary Chronic obstructive asthma with exacerbation Thoracic spine pain Pain in thoracic spine [facility] Diagnosis Thoracic spine pain Pain in thoracic spine [facility]* Diagnosis Erectile dysfunction, unspecified erectile dysfunction type [facility]* Diagnosis Major neurocognitive disorder (HCC)- Primary Unspecified persistent mental disorders due to conditions classified elsewhere [facility]* Diagnosis BPH with obstruction/lower urinary tract symptoms- Primary Hypertrophy of prostate with urinary obstruction and other lower urinary tract symptoms (LUTS) Nocturia Urinary urgency Urgency of urination [facility] Diagnosis Thoracic spine pain- Primary Pain in thoracic spine [facility] Diagnosis Thoracic spine pain- Primary Pain in thoracic spine [facility] Diagnosis Thoracic spine pain- Primary Pain in thoracic spine [facility] Diagnosis Major neurocognitive disorder (HCC) Unspecified persistent mental disorders due to conditions classified elsewhere Visual hallucinations Psychophysical visual disturbances Restlessness and agitation Other signs and symptoms involving emotional state Delusions (HCC) Unspecified paranoid state [facility] Diagnosis Thoracic spine pain- Primary Pain in thoracic spine [facility] Diagnosis Pre-operative examination- Primary Preoperative examination, unspecified Generalized anxiety disorder Obsessive-compulsive disorder, unspecified type COPD, mild (HCC) Chronic airway obstruction, not elsewhere classified Mixed hyperlipidemia Palpitations SVT (supraventricular tachycardia) (HCC) Other specified cardiac dysrhythmias 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 and other lower urinary tract symptoms (LUTS) Gastroesophageal reflux disease, unspecified whether esophagitis present Acute cough- Primary Acute cough [facility] Diagnosis Pre-operative examination- Primary Preoperative examination, unspecified Generalized anxiety disorder Obsessive-compulsive disorder, unspecified type COPD, mild (HCC) Chronic airway obstruction, not elsewhere classified Mixed hyperlipidemia Palpitations SVT (supraventricular tachycardia) (HCC) Other specified cardiac dysrhythmias 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 and other lower urinary tract symptoms (LUTS) Gastroesophageal reflux disease, unspecified whether esophagitis present Acute cough- Primary URI, acute Acute upper respiratory infections of unspecified site Community acquired pneumonia of left lower lobe of lung [facility]* Diagnosis Pre-operative examination- Primary Preoperative examination, unspecified Generalized anxiety disorder Obsessive-compulsive disorder, unspecified type COPD, mild (HCC) Chronic airway obstruction, not elsewhere classified Mixed hyperlipidemia Palpitations SVT (supraventricular tachycardia) (HCC) Other specified cardiac dysrhythmias 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 and other lower urinary tract symptoms (LUTS) Gastroesophageal reflux disease, unspecified whether esophagitis present Mixed hyperlipidemia- Primary 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, mild (HCC) Chronic airway obstruction, not elsewhere classified Gastroesophageal reflux disease without esophagitis Esophageal reflux Palpitations Bacterial pneumonia Bacterial pneumonia, unspecified Anxiety with depression [facility] Diagnosis Pre-operative examination- Primary Preoperative examination, unspecified Generalized anxiety disorder Obsessive-compulsive disorder, unspecified type COPD, mild (HCC) Chronic airway obstruction, not elsewhere classified Mixed hyperlipidemia Palpitations SVT (supraventricular tachycardia) (HCC) Other specified cardiac dysrhythmias 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 and other lower urinary tract symptoms (LUTS) Gastroesophageal reflux disease, unspecified whether esophagitis present Acute cough documented in this encounter [facility]* Diagnosis Pre-operative examination- Primary Preoperative examination, unspecified Generalized anxiety disorder Obsessive-compulsive disorder, unspecified type COPD, mild (HCC) Chronic airway obstruction, not elsewhere classified Mixed hyperlipidemia Palpitations SVT (supraventricular tachycardia) (HCC) Other specified cardiac dysrhythmias 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 and other lower urinary tract symptoms (LUTS) Gastroesophageal reflux disease, unspecified whether esophagitis present 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 SVT (supraventricular tachycardia) (HCC) Other specified cardiac dysrhythmias Palpitations Mixed hyperlipidemia [facility] Diagnosis Acute pain of left shoulder Pre-operative examination- Primary Preoperative examination, unspecified Generalized anxiety disorder Obsessive-compulsive disorder, unspecified type COPD, mild (HCC) Chronic airway obstruction, not elsewhere classified Mixed hyperlipidemia Palpitations SVT (supraventricular tachycardia) (HCC) Other specified cardiac dysrhythmias 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 and other lower urinary tract symptoms (LUTS) Gastroesophageal reflux disease, unspecified whether esophagitis present [facility] Diagnosis Pre-operative examination- Primary Preoperative examination, unspecified Generalized anxiety disorder Obsessive-compulsive disorder, unspecified type COPD, mild (HCC) Chronic airway obstruction, not elsewhere classified Mixed hyperlipidemia Palpitations SVT (supraventricular tachycardia) (HCC) Other specified cardiac dysrhythmias 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 and other lower urinary tract symptoms (LUTS) Gastroesophageal reflux disease, unspecified whether esophagitis present Major neurocognitive disorder (HCC)- Primary Unspecified persistent mental disorders due to conditions classified elsewhere [facility] Diagnosis Swelling of joint of left wrist Effusion of forearm joint Pre-operative examination- Primary Preoperative examination, unspecified Generalized anxiety disorder Obsessive-compulsive disorder, unspecified type COPD, mild (HCC) Chronic airway obstruction, not elsewhere classified Mixed hyperlipidemia Palpitations SVT (supraventricular tachycardia) (HCC) Other specified cardiac dysrhythmias 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 and other lower urinary tract symptoms (LUTS) Gastroesophageal reflux disease, unspecified whether esophagitis present [facility] Diagnosis Abnormal chest x-ray Other nonspecific abnormal finding of lung field Pre-operative examination- Primary Preoperative examination, unspecified Generalized anxiety disorder Obsessive-compulsive disorder, unspecified type COPD, mild (HCC) Chronic airway obstruction, not elsewhere classified Mixed hyperlipidemia Palpitations SVT (supraventricular tachycardia) (HCC) Other specified cardiac dysrhythmias 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 and other lower urinary tract symptoms (LUTS) Gastroesophageal reflux disease, unspecified whether esophagitis present [facility]* Diagnosis Cough Lab test positive for detection of COVID-19 virus Pre-operative examination- Primary Preoperative examination, unspecified Generalized anxiety disorder Obsessive-compulsive disorder, unspecified type COPD, mild (HCC) Chronic airway obstruction, not elsewhere classified Mixed hyperlipidemia Palpitations SVT (supraventricular tachycardia) (HCC) Other specified cardiac dysrhythmias 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 and other lower urinary tract symptoms (LUTS) Gastroesophageal reflux disease, unspecified whether esophagitis present documented in this encounter [facility] note* Diagnosis Pre-operative examination- Primary Preoperative examination, unspecified Generalized anxiety disorder Obsessive-compulsive disorder, unspecified type COPD, mild (HCC) Chronic airway obstruction, not elsewhere classified Mixed hyperlipidemia Palpitations SVT (supraventricular tachycardia) (HCC) Other specified cardiac dysrhythmias 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 and other lower urinary tract symptoms (LUTS) Gastroesophageal reflux disease, unspecified whether esophagitis present Procedure not carried out- Primary Procedure not carried out for other reasons documented in this encounter [facility]* Diagnosis Pre-operative examination- Primary Preoperative examination, unspecified Generalized anxiety disorder Obsessive-compulsive disorder, unspecified type COPD, mild (HCC) Chronic airway obstruction, not elsewhere classified Mixed hyperlipidemia Palpitations SVT (supraventricular tachycardia) (HCC) Other specified cardiac dysrhythmias 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 and other lower urinary tract symptoms (LUTS) Gastroesophageal reflux disease, unspecified whether esophagitis present Neurocognitive disorder- Primary Unspecified persistent mental disorders due to conditions classified elsewhere Delusions (HCC) Unspecified paranoid state Mood disorder (HCC) Unspecified episodic mood disorder Visual hallucinations Psychophysical visual disturbances Generalized anxiety disorder Encounter for long-term (current) use of medications Encounter for long-term (current) use of other medications documented in this encounter [facility]* Diagnosis Pre-operative examination- Primary Preoperative examination, unspecified Generalized anxiety disorder Obsessive-compulsive disorder, unspecified type COPD, mild (HCC) Chronic airway obstruction, not elsewhere classified Mixed hyperlipidemia Palpitations SVT (supraventricular tachycardia) (HCC) Other specified cardiac dysrhythmias 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 and other lower urinary tract symptoms (LUTS) Gastroesophageal reflux disease, unspecified whether esophagitis present Cognitive communication deficit- Primary Neurocognitive disorder Unspecified persistent mental disorders due to conditions classified elsewhere Visual hallucinations Psychophysical visual disturbances Delusions (HCC) Unspecified paranoid state Mood disorder (HCC) Unspecified episodic mood disorder Generalized anxiety disorder [facility]* Diagnosis Pre-operative examination- Primary Preoperative examination, unspecified Generalized anxiety disorder Obsessive-compulsive disorder, unspecified type COPD, mild (HCC) Chronic airway obstruction, not elsewhere classified Mixed hyperlipidemia Palpitations SVT (supraventricular tachycardia) (HCC) Other specified cardiac dysrhythmias 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 and other lower urinary tract symptoms (LUTS) Gastroesophageal reflux disease, unspecified whether esophagitis present Neurocognitive disorder- Primary Unspecified persistent mental disorders due to conditions classified elsewhere Cognitive communication deficit [facility]* Diagnosis Pre-operative examination- Primary Preoperative examination, unspecified Generalized anxiety disorder Obsessive-compulsive disorder, unspecified type COPD, mild (HCC) Chronic airway obstruction, not elsewhere classified Mixed hyperlipidemia Palpitations SVT (supraventricular tachycardia) (HCC) Other specified cardiac dysrhythmias 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 and other lower urinary tract symptoms (LUTS) Gastroesophageal reflux disease, unspecified whether esophagitis present Major neurocognitive disorder (HCC) Unspecified persistent mental disorders due to conditions classified elsewhere Visual hallucinations Psychophysical visual disturbances Restlessness and agitation Other signs and symptoms involving emotional state Delusions (HCC) Unspecified paranoid state documented in this encounter [facility] note* Diagnosis Pre-operative examination- Primary Preoperative examination, unspecified Generalized anxiety disorder Obsessive-compulsive disorder, unspecified type COPD, mild (HCC) Chronic airway obstruction, not elsewhere classified Mixed hyperlipidemia Palpitations SVT (supraventricular tachycardia) (HCC) Other specified cardiac dysrhythmias 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 and other lower urinary tract symptoms (LUTS) Gastroesophageal reflux disease, unspecified whether esophagitis present Bilateral foot pain Pain in limb [facility]* Diagnosis Pre-operative examination- Primary Preoperative examination, unspecified Generalized anxiety disorder Obsessive-compulsive disorder, unspecified type COPD, mild (HCC) Chronic airway obstruction, not elsewhere classified Mixed hyperlipidemia Palpitations SVT (supraventricular tachycardia) (HCC) Other specified cardiac dysrhythmias 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 and other lower urinary tract symptoms (LUTS) Gastroesophageal reflux disease, unspecified whether esophagitis present Pneumonia of right lower lobe due to infectious organism- Primary [facility]* Diagnosis Pre-operative examination- Primary Preoperative examination, unspecified Generalized anxiety disorder Obsessive-compulsive disorder, unspecified type COPD, mild (HCC) Chronic airway obstruction, not elsewhere classified Mixed hyperlipidemia Palpitations SVT (supraventricular tachycardia) (HCC) Other specified cardiac dysrhythmias 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 and other lower urinary tract symptoms (LUTS) Gastroesophageal reflux disease, unspecified whether esophagitis present Acquired hallux valgus, unspecified laterality- Primary Hallux rigidus of left foot Hallux rigidus Hammer toe of left foot Skew foot deformity, unspecified laterality [facility]* Diagnosis Pre-operative examination- Primary Preoperative examination, unspecified Generalized anxiety disorder Obsessive-compulsive disorder, unspecified type COPD, mild (HCC) Chronic airway obstruction, not elsewhere classified Mixed hyperlipidemia Palpitations SVT (supraventricular tachycardia) (HCC) Other specified cardiac dysrhythmias 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 and other lower urinary tract symptoms (LUTS) Gastroesophageal reflux disease, unspecified whether esophagitis present Pain in left hip- Primary Pain in joint, pelvic region and thigh [facility]* Diagnosis Pre-operative examination- Primary Preoperative examination, unspecified Generalized anxiety disorder Obsessive-compulsive disorder, unspecified type COPD, mild (HCC) Chronic airway obstruction, not elsewhere classified Mixed hyperlipidemia Palpitations SVT (supraventricular tachycardia) (HCC) Other specified cardiac dysrhythmias 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 and other lower urinary tract symptoms (LUTS) Gastroesophageal reflux disease, unspecified whether esophagitis present Trochanteric bursitis of left hip- Primary Enthesopathy of hip region It band syndrome, left [facility] Diagnosis Pre-operative examination- Primary Preoperative examination, unspecified Generalized anxiety disorder Obsessive-compulsive disorder, unspecified type COPD, mild (HCC) Chronic airway obstruction, not elsewhere classified Mixed hyperlipidemia Palpitations SVT (supraventricular tachycardia) (HCC) Other specified cardiac dysrhythmias 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 and other lower urinary tract symptoms (LUTS) Gastroesophageal reflux disease, unspecified whether esophagitis present Pain in left hip Pain in joint, pelvic region and thigh [facility] Diagnosis Pre-operative examination- Primary Preoperative examination, unspecified Generalized anxiety disorder Obsessive-compulsive disorder, unspecified type COPD, mild (HCC) Chronic airway obstruction, not elsewhere classified Mixed hyperlipidemia Palpitations SVT (supraventricular tachycardia) (HCC) Other specified cardiac dysrhythmias 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 and other lower urinary tract symptoms (LUTS) Gastroesophageal reflux disease, unspecified whether esophagitis present Pneumonia of right lower lobe due to infectious organism- Primary [facility]* Diagnosis Pre-operative examination- Primary Preoperative examination, unspecified Generalized anxiety disorder Obsessive-compulsive disorder, unspecified type COPD, mild (HCC) Chronic airway obstruction, not elsewhere classified Mixed hyperlipidemia Palpitations SVT (supraventricular tachycardia) (HCC) Other specified cardiac dysrhythmias 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 and other lower urinary tract symptoms (LUTS) Gastroesophageal reflux disease, unspecified whether esophagitis present Abscess of groin, right- Primary Cellulitis and abscess of trunk [facility] Diagnosis Pre-operative examination- Primary Preoperative examination, unspecified Generalized anxiety disorder Obsessive-compulsive disorder, unspecified type COPD, mild (HCC) Chronic airway obstruction, not elsewhere classified Mixed hyperlipidemia Palpitations SVT (supraventricular tachycardia) (HCC) Other specified cardiac dysrhythmias 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 and other lower urinary tract symptoms (LUTS) Gastroesophageal reflux disease, unspecified whether esophagitis present Major neurocognitive disorder (HCC) Unspecified persistent mental disorders due to conditions classified elsewhere [facility] Diagnosis Pre-operative examination- Primary Preoperative examination, unspecified Generalized anxiety disorder Obsessive-compulsive disorder, unspecified type COPD, mild (HCC) Chronic airway obstruction, not elsewhere classified Mixed hyperlipidemia Palpitations SVT (supraventricular tachycardia) (HCC) Other specified cardiac dysrhythmias 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 and other lower urinary tract symptoms (LUTS) Gastroesophageal reflux disease, unspecified whether esophagitis present Acute URI- Primary Acute upper respiratory infections of unspecified site [facility] Diagnosis Pre-operative examination- Primary Preoperative examination, unspecified Generalized anxiety disorder Obsessive-compulsive disorder, unspecified type COPD, mild (HCC) Chronic airway obstruction, not elsewhere classified Mixed hyperlipidemia Palpitations SVT (supraventricular tachycardia) (HCC) Other specified cardiac dysrhythmias 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 and other lower urinary tract symptoms (LUTS) Gastroesophageal reflux disease, unspecified whether esophagitis present Acute maxillary sinusitis, recurrence not specified- Primary Mixed hyperlipidemia 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, mild (HCC) Chronic airway obstruction, not elsewhere classified Dementia with behavioral disturbance (HCC) Dementia, unspecified, with behavioral disturbance [facility] Diagnosis Pre-operative examination- Primary Preoperative examination, unspecified Generalized anxiety disorder Obsessive-compulsive disorder, unspecified type COPD, mild (HCC) Chronic airway obstruction, not elsewhere classified Mixed hyperlipidemia Palpitations SVT (supraventricular tachycardia) (HCC) Other specified cardiac dysrhythmias 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 and other lower urinary tract symptoms (LUTS) Gastroesophageal reflux disease, unspecified whether esophagitis present Major neurocognitive disorder (HCC)- Primary Unspecified persistent mental disorders due to conditions classified elsewhere Mood disorder (HCC) Unspecified episodic mood disorder Generalized anxiety disorder Visual hallucinations Psychophysical visual disturbances Restlessness and agitation Other signs and symptoms involving emotional state Delusions (HCC) Unspecified paranoid state Encounter for long-term (current) use of medications Encounter for long-term (current) use of other medications History of trauma Personal history of other injury documented in this encounter [facility]* Diagnosis Pre-operative examination- Primary Preoperative examination, unspecified Generalized anxiety disorder Obsessive-compulsive disorder, unspecified type COPD, mild (HCC) Chronic airway obstruction, not elsewhere classified Mixed hyperlipidemia Palpitations SVT (supraventricular tachycardia) (HCC) Other specified cardiac dysrhythmias 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 BPH with obstruction/lower urinary tract symptoms Hypertrophy of prostate with urinary obstruction and other lower urinary tract symptoms (LUTS) Gastroesophageal reflux disease, unspecified whether esophagitis present Hammer toe of left foot- Primary PAD (peripheral artery disease) Peripheral vascular disease, unspecified documented in this encounter [facility] noteNo assessment information availableWSumma [facility] Work Phone: Evaluation note* Diagnosis Pre-operative examination- Primary Preoperative examination, unspecified Generalized anxiety disorder Obsessive-compulsive disorder, unspecified type COPD, mild (HCC) Chronic airway obstruction, not elsewhere classified Mixed hyperlipidemia Palpitations SVT (supraventricular tachycardia) (HCC) Other specified cardiac dysrhythmias 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 BPH with obstruction/lower urinary tract symptoms Hypertrophy of prostate with urinary obstruction and other lower urinary tract symptoms (LUTS) Gastroesophageal reflux disease, unspecified whether esophagitis present Injury of head, subsequent encounter- Primary 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- Primary SVT (supraventricular tachycardia) (HCC) Other specified cardiac dysrhythmias Palpitations Mixed hyperlipidemia documented in this encounter [facility] note* Diagnosis Pre-operative examination- Primary Preoperative examination, unspecified Generalized anxiety disorder Obsessive-compulsive disorder, unspecified type COPD, mild (HCC) Chronic airway obstruction, not elsewhere classified Mixed hyperlipidemia Palpitations SVT (supraventricular tachycardia) (HCC) Other specified cardiac dysrhythmias 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 BPH with obstruction/lower urinary tract symptoms Hypertrophy of prostate with urinary obstruction and other lower urinary tract symptoms (LUTS) Gastroesophageal reflux disease, unspecified whether esophagitis present Injury of head, subsequent encounter 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- Primary SVT (supraventricular tachycardia) (HCC) Other specified cardiac dysrhythmias Palpitations Mixed hyperlipidemia [facility] Diagnosis Pre-operative examination- Primary Preoperative examination, unspecified Generalized anxiety disorder Obsessive-compulsive disorder, unspecified type COPD, mild (HCC) Chronic airway obstruction, not elsewhere classified Mixed hyperlipidemia Palpitations SVT (supraventricular tachycardia) (HCC) Other specified cardiac dysrhythmias 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 Tylenol for any pain. Return if severe headache, vomiting or not acting himself. He would need a CAT scan then. Follow-up with your primary care provider to get the stitches out in 7 days. Clean the wound daily with just soap and water. Apply antibiotic ointment. If you see any signs of infection pus, redness, fever return.[facility] Work Phone: Reason for referral (narrative)* Outpatient Procedure (Routine) - Authorized Specialty Diagnoses / Procedures Referred By Ellyn t Referred To [facility] Diagnoses 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) Screening for ischemic heart disease Procedures ECG COMPLETE ECG ROUTINE ECG W/LEAST 12 LDS W/I&R Krunal Barragan MD [address] [place] [id number] [facility] [address] [place] [address] Referral ID Status Reason Start Date Expiration Date Visits Requested Visits Authorized [id number] Authorized Auto-Generat ed Referral 04/21/2022 04/21/2023 1 1 [facility] for referral (narrative)* Outpatient Procedure (Routine) - Closed Specialty Diagnoses / Procedures Referred By Contac t Referred To Contact [facility] Diagnoses Pre-operative examination Procedures ECG COMPLETE ECG ROUTINE ECG W/LEAST 12 LDS W/I&R Taylor Barrios APRN.CNP [address] [place] [address] [facility] [place] [address] [place] [address] Referral ID Status Reason Start Date Expiration Date V isits Requested Visits Authorized [id number] Closed Auto-Generate d Referral 12/13/2022 12/13/2023 1 1 [facility] for referral (narrative)* Diagnostic Procedure Only (Routine) - Pending Review Specialty Diagnoses / Procedures [facility] Diagnoses Chronic left shoulder pain Procedures XR SHOULDER GENERAL 3V OR MORE AP/TRUE AP/OTHER LEFT RADEX SHOULDER COMPLETE MINIMUM 2 VIEWS Ivana Torres PA-C [address] [place] [address] X[facility] Imaging Referral ID Status Reason Start Date Expiration Date Visits Requested Visits Authorized [id number] Pending Review Auto-Generat ed Referral 02/01/2023 03/02/2024 1 1 [facility] for referral (narrative)* Diagnostic Procedure Only (Routine) - Authorized Specialty Diagnoses / Procedures Referred By Contac t Referred To Contact XR IMAGING Diagnoses Chronic left shoulder pain Procedures XR SHOULDER GENERAL 3V OR MORE AP/TRUE AP/OTHER LEFT RADEX SHOULDER COMPLETE MINIMUM 2 VIEWS Ivana Torres PA-C [address] [place] [address] X[facility] Imaging Referral ID Status Reason Start Date Expiration Date Visits Requested Visits Authorized [id number] Authorized Auto-Generat ed Referral 03/11/2023 04/09/2024 1 1 [facility] for referral (narrative)* Diagnostic Procedure Only (Routine) - Closed Specialty Diagnoses / Procedures Referred By Contac t Referred To Contact XR IMAGING Diagnoses Acute pain of left shoulder Procedures XR SHOULDER GENERAL 3V OR MORE AP/TRUE AP/OTHER LEFT RADEX SHOULDER COMPLETE MINIMUM 2 VIEWS Marah Valdovinos, [employer] REPRESENTATIVE [address] [place] [address] [place] [address] Referral ID Status Reason Start Date Expiration Date V isits Requested Visits Authorized [id number] Closed Auto-Generate d Referral 09/21/2022 10/21/2023 1 1 [facility] for referral (narrative)* Diagnostic Procedure Only (Routine) - Closed Specialty Diagnoses / Procedures Referred By Contac t Referred To Contact XR IMAGING Diagnoses Pain in left hip Procedures XR LEG FRONTAL HIP TO ANKLE MECHANICAL AXIS BONE LENGTH STUDIES Luis Eduardo Rico PA-C [address] [address] [place] [address] Referral ID Status Reason Start Date Expiration Date V isits Requested Visits Authorized [id number] Closed Auto-Generate d Referral 09/05/2024 10/05/2025 1 1 * Diagnostic Procedure Only (Routine) - Closed Specialty Diagnoses / Procedures Referred By Contac t Referred To Contact XR IMAGING Diagnoses Pain in left hip Procedures XR HIP GENERAL 3V PELV/AP/LAT LEFT RADEX HIP UNILATERAL WITH PELVIS 2-3 VIEWS Luis Eduardo Rico PA-C [address] [address] [place] [address] Referral ID Status Reason Start Date Expiration Date V isits Requested Visits Authorized [id number] Closed Auto-Generate d Referral 09/05/2024 10/05/2025 1 1 [facility] for referral (narrative)* Diagnostic Procedure Only (Routine) - Closed Specialty Diagnoses / Procedures Referred By Contac t Referred To Contact XR IMAGING Diagnoses Pain in left hip Procedures XR LEG FRONTAL HIP TO ANKLE MECHANICAL AXIS BONE LENGTH STUDIES Luis Eduardo Rico PA-C [address] [address] [place] [address] Referral ID Status Reason Start Date Expiration Date V isits Requested Visits Authorized [id number] Closed Auto-Generate d Referral 09/05/2024 10/05/2025 1 1 * Diagnostic Procedure Only (Routine) - Closed Specialty Diagnoses / Procedures Referred By Contac t Referred To Contact XR IMAGING Diagnoses Pain in left hip Procedures XR HIP GENERAL 3V PELV/AP/LAT LEFT RADEX HIP UNILATERAL WITH PELVIS 2-3 VIEWS Luis Eduardo Rico PA-C [address] [address] [place] [address] Referral ID Status Reason Start Date Expiration Date V isits Requested Visits Authorized [id number] Closed Auto-Generate d Referral 09/05/2024 10/05/2025 1 1 [facility] for referral (narrative)No reason for referral information availableWSumma [facility] Work Phone: Reason for visit Narrative* Diagnostic Procedure Only (Routine) - Closed Specialty Diagnoses / Procedures Referred By Contac t Referred To Contact XR IMAGING Diagnoses Thoracic spine pain Procedures XR THORACIC GENERAL 3V AP/LAT/[place] RADEX SPINE THORACIC 3 VIEWS Lori Chauhan MD [address] [place] [address] [place] [address] Referral ID Status Reason Start Date Expiration Date V isits Requested Visits Authorized [id number] Closed Auto-Generate d Referral 01/31/2024 03/01/2025 1 1 [facility] for visit Narrative* Diagnostic Procedure Only (Routine) - Closed Specialty Diagnoses / Procedures Referred By Contac t Referred To Contact XR IMAGING Diagnoses Chronic left shoulder pain Procedures XR SHOULDER GENERAL 3V OR MORE AP/TRUE AP/OTHER LEFT RADEX SHOULDER COMPLETE MINIMUM 2 VIEWS Ivana Torres PA-C [address] [place] [address] [place] [address] Referral ID Status Reason Start Date Expiration Date V isits Requested Visits Authorized [id number] Closed Auto-Generate d Referral 03/11/2023 04/09/2024 1 1 [facility] for visit Narrative* Diagnostic Procedure Only (Routine) - Closed Specialty Diagnoses / Procedures Referred By Contac t Referred To Contact XR IMAGING Diagnoses Chronic left shoulder pain Procedures XR SHOULDER GENERAL 3V OR MORE AP/TRUE AP/OTHER LEFT RADEX SHOULDER COMPLETE MINIMUM 2 VIEWS Ivana Torres PA-C [address] [place] [address] [place] [address] Referral ID Status Reason Start Date Expiration Date V isits Requested Visits Authorized [id number] Closed Auto-Generate d Referral 02/01/2023 03/02/2024 1 1 [facility] for visit Narrative* Diagnostic Procedure Only (Routine) - Closed Specialty Diagnoses / Procedures Referred By Contac t Referred To Contact XR IMAGING Diagnoses Chronic left shoulder pain Procedures XR SHOULDER GENERAL 3V OR MORE AP/TRUE AP/OTHER LEFT RADEX SHOULDER COMPLETE MINIMUM 2 VIEWS Ivana Torres PA-C [address] [place] [address] [place] [address] Referral ID Status Reason Start Date Expiration Date V isits Requested Visits Authorized [id number] Closed Auto-Generate d Referral 12/23/2022 01/22/2024 1 1 [facility] for visit Narrative* Diagnostic Procedure Only (Routine) - Closed Specialty Diagnoses / Procedures Referred By Contac t Referred To Contact XR IMAGING Diagnoses Acute pain of left shoulder Procedures XR SHOULDER GENERAL 3V OR MORE AP/TRUE AP/OTHER LEFT RADEX SHOULDER COMPLETE MINIMUM 2 VIEWS Marah Valdovinos, [employer] REPRESENTATIVE [address] [place] [address] [place] [address] Referral ID Status Reason Start Date Expiration Date V isits Requested Visits Authorized [id number] Closed Auto-Generate d Referral 09/21/2022 10/21/2023 1 1 [facility] for visit Narrative* Diagnostic Procedure Only (Routine) - Closed Specialty Diagnoses / Procedures Referred By Contac t Referred To Contact XR IMAGING Diagnoses Bilateral foot pain Procedures XR FOOT GENERAL 3V AP/LAT/OBL BILATERAL RADEX FOOT COMPLETE MINIMUM 3 VIEWS Viri Beasley [address] [address] [place] [address] Referral ID Status Reason Start Date Expiration Date V isits Requested Visits Authorized [id number] Closed Auto-Generate d Referral 08/24/2024 09/23/2025 1 1 [facility] for visit Narrative* Diagnostic Procedure Only (Routine) - Closed Specialty Diagnoses / Procedures Referred By Contac t Referred To Contact XR IMAGING Diagnoses Pain in left hip Procedures XR HIP GENERAL 3V PELV/AP/LAT LEFT RADEX HIP UNILATERAL WITH PELVIS 2-3 VIEWS Luis Eduardo Rico PA-C [address] [address] [place] [address] Referral ID Status Reason Start Date Expiration Date V isits Requested Visits Authorized [id number] Closed Auto-Generate d Referral 09/05/2024 10/05/2025 1 1 [facility] for visit Narrative* MRI/CT (Urgent) - Closed Specialty Diagnoses / Procedures Referred By Contac t Referred To Contact CT IMAGING Diagnoses Injury of head, subsequent encounter 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 Procedures CT BRAIN WO IVCON CT HEAD/BRAIN W/O CONTRAST MATERIAL Leticia Harding, [employer]OT[employer] REPRESENTATIVE [address] [place] [address] Phone: tel: fax: [place] [address] Referral ID Status Reason Start Date Expiration Date V isits Requested Visits Authorized [id number] Closed Auto-Generate d Referral 01/24/2025 02/23/2026 1 1 [facility] Advance Directives No Advanced Directives Records FoundDocuments on File Type Date Recorded Patient [employer] Dean Expl anation Advance Directive(s) 01/21/2021 10:07 AM Advance Directive(s) 04/22/2020 7:03 AM Advance Directive(s) 04/19/2017 6:12 AM Documents on File Type Date Recorded Patient [employer] Dean Expl anation Advance Directive(s) 01/21/2021 10:07 AM Advance Directive(s) 04/22/2020 7:03 AM Advance Directive(s) 04/19/2017 6:12 AM Advance Directive Response Recorded Date/ Time Do you have a Healthcare Power of Motor Vehicle Field Representative? No January 16, 2025 2:41am Reason for Referral Specialty Diagnoses / Procedures Referred By Contac t Referred To Contact Ent - Otolaryngology Diagnoses Chronic vertigo Procedures CONSULT TO ENT OFFICE/OUTPATIENT [facility] 60-74 MINUTES Elif Mckinley PA-C [address] [place] [address] Referral ID Status Reason Start Date Expiration Date Visits Requested Visits Authorized [id number] Authorized PCP Requested Referral 03/05/2022 03/05/2023 1 1 Specialty Diagnoses / Procedures Referred By Contac t Referred To Contact MR IMAGING Diagnoses Visual hallucinations Cognitive impairment, mild, so stated Procedures MRI BRAIN WO/W IVCON MRI BRAIN BRAIN STEM W/O W/CONTRAST MATERIAL Elif Mckinley PA-C [address] [place] [address] Mr Imaging Referral ID Status Reason Start Date Expiration Date Visits Requested Visits Authorized [id number] Authorized Auto-Generat ed Referral 09/06/2022 10/06/2023 1 1 Specialty Diagnoses / Procedures Referred By Contac t Referred To Contact Orthopedics Diagnoses Acute pain of left shoulder Procedures CONSULT TO ORTHOPAEDICS OFFICE/OUTPATIENT [facility] 60-74 MINUTES Marah Valdovinos, [employer]OT[employer] REPRESENTATIVE [address] [place] [address] Referral ID Status Reason Start Date Expiration Date Visits Requested Visits Authorized [id number] Authorized PCP Requested Referral 09/21/2022 09/21/2023 1 1 Specialty Diagnoses / Procedures Referred By Contac t Referred To Contact XR IMAGING Diagnoses Acute pain of left shoulder Procedures XR SHOULDER GENERAL 3V OR MORE AP/TRUE AP/OTHER LEFT RADEX SHOULDER COMPLETE MINIMUM 2 VIEWS Marah Valdovinos, [employer]OT[employer] REPRESENTATIVE [address] [place] [address] Xr Imaging Referral ID Status Reason Start Date Expiration Date V isits Requested Visits Authorized [id number] Closed Auto-Generate d Referral 09/21/2022 10/21/2023 1 1 Specialty Diagnoses / Procedures Referred By Contac t Referred To Contact Diagnoses Generalized anxiety disorder Obsessive-compulsive disorder, unspecified type Visual hallucinations Procedures CONSULT TO PSYCHIATRY OFFICE/OUTPATIENT [facility] 60-74 MINUTES Elif Mckinley PA-C [address] [place] [address] Referral ID Status Reason Start Date Expiration Date Visits Requested Visits Authorized [id number] Pending Review PCP Requested Referral 09/28/2022 09/28/2023 1 1 Specialty Diagnoses / Procedures Referred By Contac t Referred To Contact [facility] Diagnoses Complete tear of left rotator cuff, unspecified whether traumatic Procedures CONSULT TO PHYSICAL THERAPY PHYSICAL THERAPY EVALUATION HIGH COMPLEX 45 MINS Ivana Torres PA-C [address] [place] [address] [facility] [place] [address] [place] [address] Referral ID Status Reason Start Date Expiration Date Visits Requested Visits Authorized [id number] Authorized PCP Requested Referral Auto-Generate d Referral 12/27/2022 11/12/2023 99 99 Specialty Diagnoses / Procedures Referred By Contac t Referred To Contact [facility] Diagnoses S/P reverse total shoulder arthroplasty, left Procedures PT REHAB FOLLOW UP ORDER THERAPEUTIC EXERCISES RE, EA 15 MIN. Donovan Gallo, XI [facility] [address] [place] [address] Referral ID Status Reason Start Date Expiration Date Visits Requested Visits Authorized [id number] Pending Review PCP Requested Referral Auto-Generate d Referral 03/02/2023 05/31/2023 1 1 Specialty Diagnoses / Procedures Referred By Contac t Referred To Contact Neurology Diagnoses Visual hallucinations Habitual alcohol use Cognitive impairment, mild, so stated Procedures CONSULT TO NEUROLOGY OFFICE/OUTPATIENT [facility] 60-74 MINUTES Elif Mckinley PA-C [address] [place] [address] Referral ID Status Reason Start Date Expiration Date Visits Requested Visits Authorized [id number] Authorized PCP Requested Referral 03/14/2023 03/13/2024 1 1 Specialty Diagnoses / Procedures Referred By Contac t Referred To Contact MR IMAGING Diagnoses Visual hallucinations Cognitive impairment, mild, so stated Procedures MRI BRAIN WO/W IVCON MRI BRAIN BRAIN STEM W/O W/CONTRAST MATERIAL Elif Mckinley PA-C [address] [place] [address] Mr Imaging [id number] Referral ID Status Reason Start Date Expiration Date V isits Requested Visits Authorized [id number] Closed Auto-Generate d Referral 09/06/2022 10/06/2023 1 1 Specialty Diagnoses / Procedures Referred By Contac t Referred To Contact Elif Mckinley PA-C [address] [place] [address] Referral ID Status Reason Start Date Expiration Date Visits Re quested Visits Authorized [id number] Closed 1 1 Specialty Diagnoses / Procedures Referred By Contac t Referred To Contact Urology Diagnoses Nocturia Urinary frequency Elevated PSA Procedures CONSULT TO UROLOGY OFFICE/OUTPATIENT [facility] MDM 60 MINUTES Lori Chauhan MD [address] [place] [address] Referral ID Status Reason Start Date Expiration Date Visits Requested Visits Authorized [id number] Authorized PCP Requested Referral 10/05/2023 10/04/2024 1 1 Specialty Diagnoses / Procedures Referred By Contac t Referred To Contact [facility] [facility] Diagnoses Major neurocognitive disorder (HCC) Visual hallucinations Restlessness and agitation Delusions (HCC) Procedures CONSULT TO [facility]ER OCCUPATIONAL THERAPY EVAL HIGH COMPLEX 60 MINS Shawanda Hale, [employer]UR[employer] PROFESSION[employer].PROMOTIONS REPRESENTATIVE [address] [place] [address] [facility] [address] [place] [address] Referral ID Status Reason Start Date Expiration Date Visits Requested Visits Authorized [id number] Authorized PCP Requested Referral Auto-Generate d Referral 12/19/2023 12/18/2024 99 99 Specialty Diagnoses / Procedures Referred By Contac t Referred To Contact MR IMAGING Diagnoses Major neurocognitive disorder (HCC) Procedures MRI 3D POST PROCESSING 3D RENDERING W/INTERP&POSTPROC DIFF WORK STATION Shawanda Hale APRN.PROMOTIONS REPRESENTATIVE [address] [place] [id number] [facility] [place] [address] Referral ID Status Reason Start Date Expiration Date Visits Requested Visits Authorized [id number] Pending Review Auto-Generat ed Referral 12/19/2023 01/17/2025 1 1 Specialty Diagnoses / Procedures Referred By Contac t Referred To Contact MR IMAGING Diagnoses Major neurocognitive disorder (HCC) Procedures MRI BRAIN W QUANT WO IVCON MRI BRAIN BRAIN STEM W/O CONTRAST MATERIAL Shawanda Hale APRN.PROMOTIONS REPRESENTATIVE [address] [place] [id number] [facility] [place] [address] Referral ID Status Reason Start Date Expiration Date Visits Requested Visits Authorized [id number] Authorized Auto-Generat ed Referral 12/19/2023 01/17/2025 1 1 Referral ID Status Reason Start Date Expiration Date V isits Requested Visits Authorized [id number] Closed Auto-Generate d Referral 12/19/2023 01/17/2025 1 1 Referral ID Status Reason Start Date Expiration Date V isits Requested Visits Authorized [id number] Closed Auto-Generate d Referral 12/19/2023 01/17/2025 1 1 Specialty Diagnoses / Procedures Referred By Contac t Referred To Contact Diagnoses Major neurocognitive disorder (HCC) Procedures PROVIDER ORDERED FOLLOW UP OFFICE/OUTPATIENT NEW [facility] MDM 60 MINUTES Shawanda Hale APRN.PROMOTIONS REPRESENTATIVE [address] [place] [id number] Referral ID Status Reason Start Date Expiration Date Visits Requested Visits Authorized [id number] Authorized PCP Requested Referral 02/24/2024 01/26/2025 1 1 Specialty Diagnoses / Procedures Referred By Contac t Referred To Contact [facility] Diagnoses Thoracic spine pain Procedures CONSULT TO PHYSICAL THERAPY PHYSICAL THERAPY EVALUATION HIGH COMPLEX 45 MINS Lori Chauhan MD [address] [place] [address] [facility] [address] [place] [address] Referral ID Status Reason Start Date Expiration Date Visits Requested Visits Authorized [id number] Authorized PCP Requested Referral Auto-Generate d Referral 01/31/2024 01/30/2025 99 99 Specialty Diagnoses / Procedures Referred By Contac t Referred To Contact XR IMAGING Diagnoses Thoracic spine pain Procedures XR THORACIC GENERAL 3V AP/LAT/SWIMMERS RADEX SPINE THORACIC 3 VIEWS Lori Chauhan MD [address] [place] [address] [place] [id number] Referral ID Status Reason Start Date Expiration Date V isits Requested Visits Authorized [id number] Closed Auto-Generate d Referral 01/31/2024 03/01/2025 1 1 Specialty Diagnoses / Procedures Referred By Contac t Referred To Contact Diagnoses Neurocognitive disorder Generalized anxiety disorder Procedures PROVIDER ORDERED FOLLOW UP OFFICE/OUTPATIENT NEW HIGH MDM 60 MINUTES Alexus Naik, [employer].PROMOTIONS REPRESENTATIVE [address] [place] [address] Referral ID Status Reason Start Date Expiration Date Visits Requested Visits Authorized [id number] Authorized PCP Requested Referral 4 07/10/2025 1 1 Specialty Diagnoses / Procedures Referred By Contac t Referred To Contact [facility] Diagnoses Neurocognitive disorder Delusions (HCC) Mood disorder (HCC) Visual hallucinations Generalized anxiety disorder Procedures CONSULT TO SPEECH THERAPY OFFICE/OUTPATIENT NEW HIGH MDM 60 MINUTES Alexus Naik, [employer]ESSION[employer].PROMOTIONS REPRESENTATIVE [address] [place] [address] [facility] [address] [place] [address] Referral ID Status Reason Start Date Expiration Date Visits Requested Visits Authorized [id number] Authorized Auto-Generat ed Referral 07/10/2025 99 99 Specialty Diagnoses / Procedures Referred By Contac t Referred To Contact General Surgery Diagnoses Abscess of groin, right Procedures CONSULT TO GENERAL SURGERY OFFICE/OUTPATIENT NEW HIGH MDM 60 MINUTES Gloria Morrow MD [address] [place] [address] Referral ID Status Reason Start Date Expiration Date Visits Requested Visits Authorized [id number] Authorized PCP Requested Referral 09/14/2024 09/14/2025 1 1 Health Concerns Infection Onset Date Last Indicated Resolved Time COVID-19 Rule-Out 05/11/2022 05/11/2022 Infection Onset Date Last Indicated Resolved Time COVID-19 Rule-Out 05/11/2022 05/11/2022 05/12/2022 3:40 AM EDT COVID-19 Confirmed 05/11/2022 05/11/2022 Summary Purpose Family History No Family History Records FoundNo Family History Records FoundNo Family History Records FoundNo Family History Records FoundNo Family History Records Found Chief Complaint and Reason for Visit Chief Complaint Admit Date laceration January 16, 2025 1:09a m Additional Source Comments Source Comments (unrecognize d section and content) In the event this informatio n is protected by the Federal Confidentiality of Alcohol and Drug Abuse Patient Records regulations: The Federal rules restrict any use of the information to criminally investigate or prosecute any alcohol or drug abuse patient.[facility] the event this information is protected by the Federal Confidentiality of Alcohol and Drug Abuse Patient Records regulations: The Federal rules restrict any use of the information to criminally investigate or prosecute any alcohol or drug abuse patient.[facility]In the event this information is protected by the Federal Confidentiality of Alcohol and Drug Abuse Patient Records regulations: The Federal rules restrict any use of the information to criminally investigate or prosecute any alcohol or drug abuse patient.[facility]In the event this information is protected by the Federal Confidentiality of Alcohol and Drug Abuse Patient Records regulations: The Federal rules restrict any use of the information to criminally investigate or prosecute any alcohol or drug abuse patient.[facility]In the event this information is protected by the Federal Confidentiality of Alcohol and Drug Abuse Patient Records regulations: The Federal rules restrict any use of the information to criminally investigate or prosecute any alcohol or drug abuse patient.[facility]In the event this information is protected by the Federal Confidentiality of Alcohol and Drug Abuse Patient Records regulations: The Federal rules restrict any use of the information to criminally investigate or prosecute any alcohol or drug abuse patient.[facility]In the event this information is protected by the Federal Confidentiality of Alcohol and Drug Abuse Patient Records regulations: The Federal rules restrict any use of the information to criminally investigate or prosecute any alcohol or drug abuse patient.[facility]In the event this information is protected by the Federal Confidentiality of Alcohol and Drug Abuse Patient Records regulations: The Federal rules restrict any use of the information to criminally investigate or prosecute any alcohol or drug abuse patient.[facility]In the event this information is protected by the Federal Confidentiality of Alcohol and Drug Abuse Patient Records regulations: The Federal rules restrict any use of the information to criminally investigate or prosecute any alcohol or drug abuse patient.[facility]In the event this information is protected by the Federal Confidentiality of Alcohol and Drug Abuse Patient Records regulations: The Federal rules restrict any use of the information to criminally investigate or prosecute any alcohol or drug abuse patient.[facility]In the event this information is protected by the Federal Confidentiality of Alcohol and Drug Abuse Patient Records regulations: The Federal rules restrict any use of the information to criminally investigate or prosecute any alcohol or drug abuse patient.[facility]In the event this information is protected by the Federal Confidentiality of Alcohol and Drug Abuse Patient Records regulations: The Federal rules restrict any use of the information to criminally investigate or prosecute any alcohol or drug abuse patient.[facility]In the event this information is protected by the Federal Confidentiality of Alcohol and Drug Abuse Patient Records regulations: The Federal rules restrict any use of the information to criminally investigate or prosecute any alcohol or drug abuse patient.[facility]In the event this information is protected by the Federal Confidentiality of Alcohol and Drug Abuse Patient Records regulations: The Federal rules restrict any use of the information to criminally investigate or prosecute any alcohol or drug abuse patient.[facility]In the event this information is protected by the Federal Confidentiality of Alcohol and Drug Abuse Patient Records regulations: The Federal rules restrict any use of the information to criminally investigate or prosecute any alcohol or drug abuse patient.[facility]In the event this information is protected by the Federal Confidentiality of Alcohol and Drug Abuse Patient Records regulations: The Federal rules restrict any use of the information to criminally investigate or prosecute any alcohol or drug abuse patient.[facility]In the event this information is protected by the Federal Confidentiality of Alcohol and Drug Abuse Patient Records regulations: The Federal rules restrict any use of the information to criminally investigate or prosecute any alcohol or drug abuse patient.[facility]In the event this information is protected by the Federal Confidentiality of Alcohol and Drug Abuse Patient Records regulations: The Federal rules restrict any use of the information to criminally investigate or prosecute any alcohol or drug abuse patient.[facility]In the event this information is protected by the Federal Confidentiality of Alcohol and Drug Abuse Patient Records regulations: The Federal rules restrict any use of the information to criminally investigate or prosecute any alcohol or drug abuse patient.[facility] SpringfieldIn the event this information is protected by the Federal Confidentiality of Alcohol and Drug Abuse Patient Records regulations: The Federal rules restrict any use of the information to criminally investigate or prosecute any alcohol or drug abuse patient.[facility]In the event this information is protected by the Federal Confidentiality of Alcohol and Drug Abuse Patient Records regulations: The Federal rules restrict any use of the information to criminally investigate or prosecute any alcohol or drug abuse patient.[facility]In the event this information is protected by the Federal Confidentiality of Alcohol and Drug Abuse Patient Records regulations: The Federal rules restrict any use of the information to criminally investigate or prosecute any alcohol or drug abuse patient.[facility]In the event this information is protected by the Federal Confidentiality of Alcohol and Drug Abuse Patient Records regulations: The Federal rules restrict any use of the information to criminally investigate or prosecute any alcohol or drug abuse patient.[facility]In the event this information is protected by the Federal Confidentiality of Alcohol and Drug Abuse Patient Records regulations: The Federal rules restrict any use of the information to criminally investigate or prosecute any alcohol or drug abuse patient.[facility]In the event this information is protected by the Federal Confidentiality of Alcohol and Drug Abuse Patient Records regulations: The Federal rules restrict any use of the information to criminally investigate or prosecute any alcohol or drug abuse patient.[facility]In the event this information is protected by the Federal Confidentiality of Alcohol and Drug Abuse Patient Records regulations: The Federal rules restrict any use of the information to criminally investigate or prosecute any alcohol or drug abuse patient.[facility]In the event this information is protected by the Federal Confidentiality of Alcohol and Drug Abuse Patient Records regulations: The Federal rules restrict any use of the information to criminally investigate or prosecute any alcohol or drug abuse patient.[facility]In the event this information is protected by the Federal Confidentiality of Alcohol and Drug Abuse Patient Records regulations: The Federal rules restrict any use of the information to criminally investigate or prosecute any alcohol or drug abuse patient.[facility]In the event this information is protected by the Federal Confidentiality of Alcohol and Drug Abuse Patient Records regulations: The Federal rules restrict any use of the information to criminally investigate or prosecute any alcohol or drug abuse patient.[facility]In the event this information is protected by the Federal Confidentiality of Alcohol and Drug Abuse Patient Records regulations: The Federal rules restrict any use of the information to criminally investigate or prosecute any alcohol or drug abuse patient.[facility] the event this information is protected by the Federal Confidentiality of Alcohol and Drug Abuse Patient Records regulations: The Federal rules restrict any use of the information to criminally investigate or prosecute any alcohol or drug abuse patient.[facility]In the event this information is protected by the Federal Confidentiality of Alcohol and Drug Abuse Patient Records regulations: The Federal rules restrict any use of the information to criminally investigate or prosecute any alcohol or drug abuse patient.[facility]In the event this information is protected by the Federal Confidentiality of Alcohol and Drug Abuse Patient Records regulations: The Federal rules restrict any use of the information to criminally investigate or prosecute any alcohol or drug abuse patient.[facility]In the event this information is protected by the Federal Confidentiality of Alcohol and Drug Abuse Patient Records regulations: The Federal rules restrict any use of the information to criminally investigate or prosecute any alcohol or drug abuse patient.[facility]In the event this information is protected by the Federal Confidentiality of Alcohol and Drug Abuse Patient Records regulations: The Federal rules restrict any use of the information to criminally investigate or prosecute any alcohol or drug abuse patient.[facility]In the event this information is protected by the Federal Confidentiality of Alcohol and Drug Abuse Patient Records regulations: The Federal rules restrict any use of the information to criminally investigate or prosecute any alcohol or drug abuse patient.[facility]In the event this information is protected by the Federal Confidentiality of Alcohol and Drug Abuse Patient Records regulations: The Federal rules restrict any use of the information to criminally investigate or prosecute any alcohol or drug abuse patient.[facility]In the event this information is protected by the Federal Confidentiality of Alcohol and Drug Abuse Patient Records regulations: The Federal rules restrict any use of the information to criminally investigate or prosecute any alcohol or drug abuse patient.[facility]In the event this information is protected by the Federal Confidentiality of Alcohol and Drug Abuse Patient Records regulations: The Federal rules restrict any use of the information to criminally investigate or prosecute any alcohol or drug abuse patient.[facility]In the event this information is protected by the Federal Confidentiality of Alcohol and Drug Abuse Patient Records regulations: The Federal rules restrict any use of the information to criminally investigate or prosecute any alcohol or drug abuse patient.[facility] SpringfieldIn the event this information is protected by the Federal Confidentiality of Alcohol and Drug Abuse Patient Records regulations: The Federal rules restrict any use of the information to criminally investigate or prosecute any alcohol or drug abuse patient.[facility]In the event this information is protected by the Federal Confidentiality of Alcohol and Drug Abuse Patient Records regulations: The Federal rules restrict any use of the information to criminally investigate or prosecute any alcohol or drug abuse patient.[facility]In the event this information is protected by the Federal Confidentiality of Alcohol and Drug Abuse Patient Records regulations: The Federal rules restrict any use of the information to criminally investigate or prosecute any alcohol or drug abuse patient.[facility]In the event this information is protected by the Federal Confidentiality of Alcohol and Drug Abuse Patient Records regulations: The Federal rules restrict any use of the information to criminally investigate or prosecute any alcohol or drug abuse patient.[facility]In the event this information is protected by the Federal Confidentiality of Alcohol and Drug Abuse Patient Records regulations: The Federal rules restrict any use of the information to criminally investigate or prosecute any alcohol or drug abuse patient.[facility]In the event this information is protected by the Federal Confidentiality of Alcohol and Drug Abuse Patient Records regulations: The Federal rules restrict any use of the information to criminally investigate or prosecute any alcohol or drug abuse patient.[facility]In the event this information is protected by the Federal Confidentiality of Alcohol and Drug Abuse Patient Records regulations: The Federal rules restrict any use of the information to criminally investigate or prosecute any alcohol or drug abuse patient.[facility]In the event this information is protected by the Federal Confidentiality of Alcohol and Drug Abuse Patient Records regulations: The Federal rules restrict any use of the information to criminally investigate or prosecute any alcohol or drug abuse patient.[facility]In the event this information is protected by the Federal Confidentiality of Alcohol and Drug Abuse Patient Records regulations: The Federal rules restrict any use of the information to criminally investigate or prosecute any alcohol or drug abuse patient.[facility]In the event this information is protected by the Federal Confidentiality of Alcohol and Drug Abuse Patient Records regulations: The Federal rules restrict any use of the information to criminally investigate or prosecute any alcohol or drug abuse patient.[facility]In the event this information is protected by the Federal Confidentiality of Alcohol and Drug Abuse Patient Records regulations: The Federal rules restrict any use of the information to criminally investigate or prosecute any alcohol or drug abuse patient.[facility]In the event this information is protected by the Federal Confidentiality of Alcohol and Drug Abuse Patient Records regulations: The Federal rules restrict any use of the information to criminally investigate or prosecute any alcohol or drug abuse patient.[facility]In the event this information is protected by the Federal Confidentiality of Alcohol and Drug Abuse Patient Records regulations: The Federal rules restrict any use of the information to criminally investigate or prosecute any alcohol or drug abuse patient.[facility]In the event this information is protected by the Federal Confidentiality of Alcohol and Drug Abuse Patient Records regulations: The Federal rules restrict any use of the information to criminally investigate or prosecute any alcohol or drug abuse patient.[facility]In the event this information is protected by the Federal Confidentiality of Alcohol and Drug Abuse Patient Records regulations: The Federal rules restrict any use of the information to criminally investigate or prosecute any alcohol or drug abuse patient.[facility]In the event this information is protected by the Federal Confidentiality of Alcohol and Drug Abuse Patient Records regulations: The Federal rules restrict any use of the information to criminally investigate or prosecute any alcohol or drug abuse patient.[facility]In the event this information is protected by the Federal Confidentiality of Alcohol and Drug Abuse Patient Records regulations: The Federal rules restrict any use of the information to criminally investigate or prosecute any alcohol or drug abuse patient.[facility]In the event this information is protected by the Federal Confidentiality of Alcohol and Drug Abuse Patient Records regulations: The Federal rules restrict any use of the information to criminally investigate or prosecute any alcohol or drug abuse patient.[facility]In the event this information is protected by the Federal Confidentiality of Alcohol and Drug Abuse Patient Records regulations: The Federal rules restrict any use of the information to criminally investigate or prosecute any alcohol or drug abuse patient.[facility]In the event this information is protected by the Federal Confidentiality of Alcohol and Drug Abuse Patient Records regulations: The Federal rules restrict any use of the information to criminally investigate or prosecute any alcohol or drug abuse patient.[facility]In the event this information is protected by the Federal Confidentiality of Alcohol and Drug Abuse Patient Records regulations: The Federal rules restrict any use of the information to criminally investigate or prosecute any alcohol or drug abuse patient.[facility]In the event this information is protected by the Federal Confidentiality of Alcohol and Drug Abuse Patient Records regulations: The Federal rules restrict any use of the information to criminally investigate or prosecute any alcohol or drug abuse patient.[facility]In the event this information is protected by the Federal Confidentiality of Alcohol and Drug Abuse Patient Records regulations: The Federal rules restrict any use of the information to criminally investigate or prosecute any alcohol or drug abuse patient.[facility]In the event this information is protected by the Federal Confidentiality of Alcohol and Drug Abuse Patient Records regulations: The Federal rules restrict any use of the information to criminally investigate or prosecute any alcohol or drug abuse patient.[facility]In the event this information is protected by the Federal Confidentiality of Alcohol and Drug Abuse Patient Records regulations: The Federal rules restrict any use of the information to criminally investigate or prosecute any alcohol or drug abuse patient.[facility]In the event this information is protected by the Federal Confidentiality of Alcohol and Drug Abuse Patient Records regulations: The Federal rules restrict any use of the information to criminally investigate or prosecute any alcohol or drug abuse patient.[facility] SpringfieldIn the event this information is protected by the Federal Confidentiality of Alcohol and Drug Abuse Patient Records regulations: The Federal rules restrict any use of the information to criminally investigate or prosecute any alcohol or drug abuse patient.[facility] SpringfieldIn the event this information is protected by the Federal Confidentiality of Alcohol and Drug Abuse Patient Records regulations: The Federal rules restrict any use of the information to criminally investigate or prosecute any alcohol or drug abuse patient.[facility] SpringfieldIn the event this information is protected by the Federal Confidentiality of Alcohol and Drug Abuse Patient Records regulations: The Federal rules restrict any use of the information to criminally investigate or prosecute any alcohol or drug abuse patient.[facility] SpringfieldIn the event this information is protected by the Federal Confidentiality of Alcohol and Drug Abuse Patient Records regulations: The Federal rules restrict any use of the information to criminally investigate or prosecute any alcohol or drug abuse patient.[facility] SpringfieldIn the event this information is protected by the Federal Confidentiality of Alcohol and Drug Abuse Patient Records regulations: The Federal rules restrict any use of the information to criminally investigate or prosecute any alcohol or drug abuse patient.[facility] SpringfieldIn the event this information is protected by the Federal Confidentiality of Alcohol and Drug Abuse Patient Records regulations: The Federal rules restrict any use of the information to criminally investigate or prosecute any alcohol or drug abuse patient.[facility] SpringfieldIn the event this information is protected by the Federal Confidentiality of Alcohol and Drug Abuse Patient Records regulations: The Federal rules restrict any use of the information to criminally investigate or prosecute any alcohol or drug abuse patient.[facility] SpringfieldIn the event this information is protected by the Federal Confidentiality of Alcohol and Drug Abuse Patient Records regulations: The Federal rules restrict any use of the information to criminally investigate or prosecute any alcohol or drug abuse patient.[facility] SpringfieldIn the event this information is protected by the Federal Confidentiality of Alcohol and Drug Abuse Patient Records regulations: The Federal rules restrict any use of the information to criminally investigate or prosecute any alcohol or drug abuse patient.[facility] SpringfieldIn the event this information is protected by the Federal Confidentiality of Alcohol and Drug Abuse Patient Records regulations: The Federal rules restrict any use of the information to criminally investigate or prosecute any alcohol or drug abuse patient.[facility] SpringfieldIn the event this information is protected by the Federal Confidentiality of Alcohol and Drug Abuse Patient Records regulations: The Federal rules restrict any use of the information to criminally investigate or prosecute any alcohol or drug abuse patient.[facility] SpringfieldIn the event this information is protected by the Federal Confidentiality of Alcohol and Drug Abuse Patient Records regulations: The Federal rules restrict any use of the information to criminally investigate or prosecute any alcohol or drug abuse patient.[facility] SpringfieldIn the event this information is protected by the Federal Confidentiality of Alcohol and Drug Abuse Patient Records regulations: The Federal rules restrict any use of the information to criminally investigate or prosecute any alcohol or drug abuse patient.[facility] SpringfieldIn the event this information is protected by the Federal Confidentiality of Alcohol and Drug Abuse Patient Records regulations: The Federal rules restrict any use of the information to criminally investigate or prosecute any alcohol or drug abuse patient.[facility] the event this information is protected by the Federal Confidentiality of Alcohol and Drug Abuse Patient Records regulations: The Federal rules restrict any use of the information to criminally investigate or prosecute any alcohol or drug abuse patient.[facility]In the event this information is protected by the Federal Confidentiality of Alcohol and Drug Abuse Patient Records regulations: The Federal rules restrict any use of the information to criminally investigate or prosecute any alcohol or drug abuse patient.[facility] SpringfieldIn the event this information is protected by the Federal Confidentiality of Alcohol and Drug Abuse Patient Records regulations: The Federal rules restrict any use of the information to criminally investigate or prosecute any alcohol or drug abuse patient.[facility] SpringfieldIn the event this information is protected by the Federal Confidentiality of Alcohol and Drug Abuse Patient Records regulations: The Federal rules restrict any use of the information to criminally investigate or prosecute any alcohol or drug abuse patient.[facility] SpringfieldIn the event this information is protected by the Federal Confidentiality of Alcohol and Drug Abuse Patient Records regulations: The Federal rules restrict any use of the information to criminally investigate or prosecute any alcohol or drug abuse patient.[facility] SpringfieldIn the event this information is protected by the Federal Confidentiality of Alcohol and Drug Abuse Patient Records regulations: The Federal rules restrict any use of the information to criminally investigate or prosecute any alcohol or drug abuse patient.[facility] SpringfieldIn the event this information is protected by the Federal Confidentiality of Alcohol and Drug Abuse Patient Records regulations: The Federal rules restrict any use of the information to criminally investigate or prosecute any alcohol or drug abuse patient.[facility] SpringfieldIn the event this information is protected by the Federal Confidentiality of Alcohol and Drug Abuse Patient Records regulations: The Federal rules restrict any use of the information to criminally investigate or prosecute any alcohol or drug abuse patient.[facility]In the event this information is protected by the Federal Confidentiality of Alcohol and Drug Abuse Patient Records regulations: The Federal rules restrict any use of the information to criminally investigate or prosecute any alcohol or drug abuse patient.[facility] SpringfieldIn the event this information is protected by the Federal Confidentiality of Alcohol and Drug Abuse Patient Records regulations: The Federal rules restrict any use of the information to criminally investigate or prosecute any alcohol or drug abuse patient.[facility] SpringfieldIn the event this information is protected by the Federal Confidentiality of Alcohol and Drug Abuse Patient Records regulations: The Federal rules restrict any use of the information to criminally investigate or prosecute any alcohol or drug abuse patient.[facility] SpringfieldIn the event this information is protected by the Federal Confidentiality of Alcohol and Drug Abuse Patient Records regulations: The Federal rules restrict any use of the information to criminally investigate or prosecute any alcohol or drug abuse patient.[facility] SpringfieldIn the event this information is protected by the Federal Confidentiality of Alcohol and Drug Abuse Patient Records regulations: The Federal rules restrict any use of the information to criminally investigate or prosecute any alcohol or drug abuse patient.[facility] SpringfieldIn the event this information is protected by the Federal Confidentiality of Alcohol and Drug Abuse Patient Records regulations: The Federal rules restrict any use of the information to criminally investigate or prosecute any alcohol or drug abuse patient.[facility]In the event this information is protected by the Federal Confidentiality of Alcohol and Drug Abuse Patient Records regulations: The Federal rules restrict any use of the information to criminally investigate or prosecute any alcohol or drug abuse patient.[facility] SpringfieldIn the event this information is protected by the Federal Confidentiality of Alcohol and Drug Abuse Patient Records regulations: The Federal rules restrict any use of the information to criminally investigate or prosecute any alcohol or drug abuse patient.[facility]In the event this information is protected by the Federal Confidentiality of Alcohol and Drug Abuse Patient Records regulations: The Federal rules restrict any use of the information to criminally investigate or prosecute any alcohol or drug abuse patient.[facility]In the event this information is protected by the Federal Confidentiality of Alcohol and Drug Abuse Patient Records regulations: The Federal rules restrict any use of the information to criminally investigate or prosecute any alcohol or drug abuse patient.[facility]In the event this information is protected by the Federal Confidentiality of Alcohol and Drug Abuse Patient Records regulations: The Federal rules restrict any use of the information to criminally investigate or prosecute any alcohol or drug abuse patient.[facility] SpringfieldIn the event this information is protected by the Federal Confidentiality of Alcohol and Drug Abuse Patient Records regulations: The Federal rules restrict any use of the information to criminally investigate or prosecute any alcohol or drug abuse patient.[facility]In the event this information is protected by the Federal Confidentiality of Alcohol and Drug Abuse Patient Records regulations: The Federal rules restrict any use of the information to criminally investigate or prosecute any alcohol or drug abuse patient.[facility]In the event this information is protected by the Federal Confidentiality of Alcohol and Drug Abuse Patient Records regulations: The Federal rules restrict any use of the information to criminally investigate or prosecute any alcohol or drug abuse patient.[facility]In the event this information is protected by the Federal Confidentiality of Alcohol and Drug Abuse Patient Records regulations: The Federal rules restrict any use of the information to criminally investigate or prosecute any alcohol or drug abuse patient.[facility]In the event this information is protected by the Federal Confidentiality of Alcohol and Drug Abuse Patient Records regulations: The Federal rules restrict any use of the information to criminally investigate or prosecute any alcohol or drug abuse patient.[facility]In the event this information is protected by the Federal Confidentiality of Alcohol and Drug Abuse Patient Records regulations: The Federal rules restrict any use of the information to criminally investigate or prosecute any alcohol or drug abuse patient.[facility]In the event this information is protected by the Federal Confidentiality of Alcohol and Drug Abuse Patient Records regulations: The Federal rules restrict any use of the information to criminally investigate or prosecute any alcohol or drug abuse patient.[facility]In the event this information is protected by the Federal Confidentiality of Alcohol and Drug Abuse Patient Records regulations: The Federal rules restrict any use of the information to criminally investigate or prosecute any alcohol or drug abuse patient.[facility]In the event this information is protected by the Federal Confidentiality of Alcohol and Drug Abuse Patient Records regulations: The Federal rules restrict any use of the information to criminally investigate or prosecute any alcohol or drug abuse patient.[facility]In the event this information is protected by the Federal Confidentiality of Alcohol and Drug Abuse Patient Records regulations: The Federal rules restrict any use of the information to criminally investigate or prosecute any alcohol or drug abuse patient.[facility]In the event this information is protected by the Federal Confidentiality of Alcohol and Drug Abuse Patient Records regulations: The Federal rules restrict any use of the information to criminally investigate or prosecute any alcohol or drug abuse patient.[facility]In the event this information is protected by the Federal Confidentiality of Alcohol and Drug Abuse Patient Records regulations: The Federal rules restrict any use of the information to criminally investigate or prosecute any alcohol or drug abuse patient.[facility]In the event this information is protected by the Federal Confidentiality of Alcohol and Drug Abuse Patient Records regulations: The Federal rules restrict any use of the information to criminally investigate or prosecute any alcohol or drug abuse patient.[facility]In the event this information is protected by the Federal Confidentiality of Alcohol and Drug Abuse Patient Records regulations: The Federal rules restrict any use of the information to criminally investigate or prosecute any alcohol or drug abuse patient.[facility]In the event this information is protected by the Federal Confidentiality of Alcohol and Drug Abuse Patient Records regulations: The Federal rules restrict any use of the information to criminally investigate or prosecute any alcohol or drug abuse patient.[facility]In the event this information is protected by the Federal Confidentiality of Alcohol and Drug Abuse Patient Records regulations: The Federal rules restrict any use of the information to criminally investigate or prosecute any alcohol or drug abuse patient.[facility]In the event this information is protected by the Federal Confidentiality of Alcohol and Drug Abuse Patient Records regulations: The Federal rules restrict any use of the information to criminally investigate or prosecute any alcohol or drug abuse patient.[facility]In the event this information is protected by the Federal Confidentiality of Alcohol and Drug Abuse Patient Records regulations: The Federal rules restrict any use of the information to criminally investigate or prosecute any alcohol or drug abuse patient.[facility]In the event this information is protected by the Federal Confidentiality of Alcohol and Drug Abuse Patient Records regulations: The Federal rules restrict any use of the information to criminally investigate or prosecute any alcohol or drug abuse patient.[facility]In the event this information is protected by the Federal Confidentiality of Alcohol and Drug Abuse Patient Records regulations: The Federal rules restrict any use of the information to criminally investigate or prosecute any alcohol or drug abuse patient.[facility]In the event this information is protected by the Federal Confidentiality of Alcohol and Drug Abuse Patient Records regulations: The Federal rules restrict any use of the information to criminally investigate or prosecute any alcohol or drug abuse patient.[facility]In the event this information is protected by the Federal Confidentiality of Alcohol and Drug Abuse Patient Records regulations: The Federal rules restrict any use of the information to criminally investigate or prosecute any alcohol or drug abuse patient.[facility]In the event this information is protected by the Federal Confidentiality of Alcohol and Drug Abuse Patient Records regulations: The Federal rules restrict any use of the information to criminally investigate or prosecute any alcohol or drug abuse patient.[facility]In the event this information is protected by the Federal Confidentiality of Alcohol and Drug Abuse Patient Records regulations: The Federal rules restrict any use of the information to criminally investigate or prosecute any alcohol or drug abuse patient.[facility]In the event this information is protected by the Federal Confidentiality of Alcohol and Drug Abuse Patient Records regulations: The Federal rules restrict any use of the information to criminally investigate or prosecute any alcohol or drug abuse patient.[facility]In the event this information is protected by the Federal Confidentiality of Alcohol and Drug Abuse Patient Records regulations: The Federal rules restrict any use of the information to criminally investigate or prosecute any alcohol or drug abuse patient.[facility]In the event this information is protected by the Federal Confidentiality of Alcohol and Drug Abuse Patient Records regulations: The Federal rules restrict any use of the information to criminally investigate or prosecute any alcohol or drug abuse patient.[facility]In the event this information is protected by the Federal Confidentiality of Alcohol and Drug Abuse Patient Records regulations: The Federal rules restrict any use of the information to criminally investigate or prosecute any alcohol or drug abuse patient.[facility]In the event this information is protected by the Federal Confidentiality of Alcohol and Drug Abuse Patient Records regulations: The Federal rules restrict any use of the information to criminally investigate or prosecute any alcohol or drug abuse patient.[facility]In the event this information is protected by the Federal Confidentiality of Alcohol and Drug Abuse Patient Records regulations: The Federal rules restrict any use of the information to criminally investigate or prosecute any alcohol or drug abuse patient.[facility]In the event this information is protected by the Federal Confidentiality of Alcohol and Drug Abuse Patient Records regulations: The Federal rules restrict any use of the information to criminally investigate or prosecute any alcohol or drug abuse patient.[facility] the event this information is protected by the Federal Confidentiality of Alcohol and Drug Abuse Patient Records regulations: The Federal rules restrict any use of the information to criminally investigate or prosecute any alcohol or drug abuse patient.[facility]In the event this information is protected by the Federal Confidentiality of Alcohol and Drug Abuse Patient Records regulations: The Federal rules restrict any use of the information to criminally investigate or prosecute any alcohol or drug abuse patient.[facility]In the event this information is protected by the Federal Confidentiality of Alcohol and Drug Abuse Patient Records regulations: The Federal rules restrict any use of the information to criminally investigate or prosecute any alcohol or drug abuse patient.[facility]In the event this information is protected by the Federal Confidentiality of Alcohol and Drug Abuse Patient Records regulations: The Federal rules restrict any use of the information to criminally investigate or prosecute any alcohol or drug abuse patient.[facility]In the event this information is protected by the Federal Confidentiality of Alcohol and Drug Abuse Patient Records regulations: The Federal rules restrict any use of the information to criminally investigate or prosecute any alcohol or drug abuse patient.[facility]In the event this information is protected by the Federal Confidentiality of Alcohol and Drug Abuse Patient Records regulations: The Federal rules restrict any use of the information to criminally investigate or prosecute any alcohol or drug abuse patient.[facility]In the event this information is protected by the Federal Confidentiality of Alcohol and Drug Abuse Patient Records regulations: The Federal rules restrict any use of the information to criminally investigate or prosecute any alcohol or drug abuse patient.[facility]In the event this information is protected by the Federal Confidentiality of Alcohol and Drug Abuse Patient Records regulations: The Federal rules restrict any use of the information to criminally investigate or prosecute any alcohol or drug abuse patient.[facility]In the event this information is protected by the Federal Confidentiality of Alcohol and Drug Abuse Patient Records regulations: The Federal rules restrict any use of the information to criminally investigate or prosecute any alcohol or drug abuse patient.[facility]In the event this information is protected by the Federal Confidentiality of Alcohol and Drug Abuse Patient Records regulations: The Federal rules restrict any use of the information to criminally investigate or prosecute any alcohol or drug abuse patient.[facility] Reason for Visit (unrecogniz ed section and content) Reason Comments Speech Therapy Specialty Diagnoses / Procedures Referred By Ellyn t Referred To Contact [facility] Diagnoses Neurocognitive disorder Delusions (HCC) Mood disorder (HCC) Visual hallucinations Generalized anxiety disorder Procedures CONSULT TO SPEECH THERAPY OFFICE/OUTPATIENT NEW HIGH MDM 60 MINUTES Alexus Naik, [employer] [address] [place] [address] [facility] [address] [address] Referral ID Status Reason Start Date Expiration Date Visits Requested Visits Authorized [id number] Authorized Auto-Generat ed Referral 07/10/2025 99 99 Reason Comments PT Discharge Specialty Diagnoses / Procedures Referred By Contac t Referred To Contact [facility] Diagnoses Thoracic spine pain Procedures CONSULT TO PHYSICAL THERAPY PHYSICAL THERAPY EVALUATION HIGH COMPLEX 45 MINS Lori Chauhan MD [address] [place] [address] [facility] [address] [address] Referral ID Status Reason Start Date Expiration Date Visits Requested Visits Authorized [id number] Authorized PCP Requested Referral Auto-Generate d Referral 01/31/2024 01/30/2025 99 99 Reason Comments Follow Up Specialty Diagnoses / Procedures Referred By Contac t Referred To Contact Diagnoses Major neurocognitive disorder (HCC) Procedures PROVIDER ORDERED FOLLOW UP OFFICE/OUTPATIENT NEW [facility] MDM 60 MINUTES Shawanda Hale, [employer]ENT[employer] [address] [place] [id number] Referral ID Status Reason Start Date Expiration Date V isits Requested Visits Authorized [id number] Closed PCP Requested Referral 02/24/2024 01/26/2025 1 1 Reason Comments Refill Request Reason Comments Imm/Inj Reason Comments Follow Up Reason Comments Established Patient Reason Onset Date Comments Refill Request 04/29/2022 Reason Comments Nasal Congestion headache, bodyaches, cough, sneezing x 3 days + home covid test Reason Comments Results Reason Comments F/U 3 Month Reason Comments Patient Update Reason Comments medication not working Reason Comments Pain (Shoulder Pain) L shoulder pain aft er running into post [place] gas station yesterday; hx of rotator cuff surgery x2 on that shoulder Reason Comments Patient Question Reason Comments New Pain Specialty Diagnoses / Procedures Referred By Contac t Referred To Contact Orthopedics Diagnoses Acute pain of left shoulder Procedures CONSULT TO ORTHOPAEDICS OFFICE/OUTPATIENT NEW HIGH MDM 60-74 MINUTES Marah Valdovinos, [employer] [address] [place] [address] Referral ID Status Reason Start Date Expiration Date V isits Requested Visits Authorized [id number] Closed PCP Requested Referral 09/21/2022 09/21/2023 1 1 Reason Comments Appointment Reason Comments Behavioral Health Social Work Reason Comments Medication Problem Reason Comments Results MRI Reason Comments Opened In Error Reason Onset Date Comments Refill Request 10/27/2022 Reason Comments Patient Update Cardiology risk asse ssment for surgery Reason Comments Orders Post-op physical the rapy orders Reason Comments Consult Reason Comments Established Patient Follow Up Post Op Reason Comments Physical Therapy Specialty Diagnoses / Procedures Referred By Contac t Referred To Contact [facility] Diagnoses Complete tear of left rotator cuff, unspecified whether traumatic Procedures CONSULT TO PHYSICAL THERAPY PHYSICAL THERAPY EVALUATION HIGH COMPLEX 45 MINS Ivana Torres PA-C [address] [place] [address] [address] Referral ID Status Reason Start Date Expiration Date Visits Requested Visits Authorized [id number] Authorized PCP Requested Referral Auto-Generate d Referral 12/27/2022 11/12/2023 99 99 Reason Comments Return provider's call Reason Comments PT Progress Note Specialty Diagnoses / Procedures Referred By Contac t Referred To Contact [facility] Diagnoses Complete tear of left rotator cuff, unspecified whether traumatic Procedures CONSULT TO PHYSICAL THERAPY PHYSICAL THERAPY EVALUATION HIGH COMPLEX 45 MINS Ivana Torres PA-C [address] [place] [address] [address] Reason Comments F/U 3 Month Reason Comments Orders Reason Comments Consult Specialty Diagnoses / Procedures Referred By Contac t Referred To Contact Neurology Diagnoses Visual hallucinations Habitual alcohol use Cognitive impairment, mild, so stated Procedures CONSULT TO NEUROLOGY OFFICE/OUTPATIENT [facility] 60-74 MINUTES Elif Mckinley PA-C [address] [place] [address] Referral ID Status Reason Start Date Expiration Date V isits Requested Visits Authorized [id number] Closed PCP Requested Referral 03/14/2023 03/13/2024 1 1 Reason Comments Allied Health Visit Nurse visit 48 HM Reason Comments Established Patient Follow-Up Reason Comments Established Patient Follow Up Pain Reason Comments Follow Up 3 month exam Reason Comments Eye doctor appt Specialty Diagnoses / Procedures Referred By Contac t Referred To Contact MR IMAGING Diagnoses Visual hallucinations Cognitive impairment, mild, so stated Procedures MRI BRAIN WO/W IVCON MRI BRAIN BRAIN STEM W/O W/CONTRAST MATERIAL Elif Mckinley PA-C [address] [place] [address] Mr Imaging [id number] Referral ID Status Reason Start Date Expiration Date V isits Requested Visits Authorized [id number] Closed Auto-Generate d Referral 09/06/2022 10/06/2023 1 1 Reason Comments Abscess Multiple, buttocks x 3 weeks Reason Comments bh consult Reason Comments Urinary Problem Burning with urinati on on and off for 1 year Reason Comments Med Change Request Reason Onset Date Comments Refill Request 11/03/2023 Reason Comments Appointment Cancelled Reason Comments Consult Reason Onset Date Comments Refill Request 01/16/2024 Specialty Diagnoses / Procedures Referred By Contac t Referred To Contact MR IMAGING Diagnoses Major neurocognitive disorder (HCC) Procedures MRI BRAIN W QUANT WO IVCON MRI BRAIN BRAIN STEM W/O CONTRAST MATERIAL Shawanda Hale, SECURITY PROFESSIONALS.PROMOTIONS REPRESENTATIVE [address] [place] [address] Mr Imaging [place] [id number] Referral ID Status Reason Start Date Expiration Date V isits Requested Visits Authorized [id number] Closed Auto-Generate d Referral 12/19/2023 01/17/2025 1 1 Reason Comments ER F/U Reason Onset Date Comments Refill Request 02/01/2024 Reason Comments Follow Up Nocturia Urinary Urgency Reason Comments PT Eval Reason Comments Cough Chest congestion x3 days Reason Comments Fatigue Cough, chest congest ion x 3 days, body aches, fever. Reason Comments Express Care follow-up Reason Comments Established Patient Reason Comments Established Patient Follow-Up Office vis it Reason Comments Radiology XR Reason Comments Pain neck pain left side, bruising, felt like vein popped x 3 days Reason Comments Follow Up Specialty Diagnoses / Procedures Referred By Contac t Referred To Contact Psychiatry / ADULT PSYCHIATRY Diagnoses follow up Procedures EST PSYC ADULT Alexus Naik, SEC[employer] PROFESSION[employer].PROMOTIONS REPRESENTATIVE [address] [place] [address] Alexus Naik, SECURITY PROFESSION[employer].PROMOTIONS REPRESENTATIVE [address] [place] [address] Referral ID Status Reason Start Date Expiration Date V isits Requested Visits Authorized [id number] New Request 07/10/2024 10/08/2024 1 1 Reason Comments Speech Evaluation Reason Comments Patient Update Appointment Reason Comments Acute Visit Cough and head conge stion for 1 week Reason Comments Established Patient pain Reason Comments Pain Reason Comments Pneumonia Follow up Reason Onset Date Comments Refill Request 09/11/2024 Reason Comments Mass Lump in groin area x 4 days Reason Onset Date Comments Refill Request 09/26/2024 Reason Comments Chest Congestion cough x 1 day Reason Comments 6 Month Exam Reason Comments Follow Up Depression/Anxiety Specialty Diagnoses / Procedures Referred By Ellyn esteban Referred To Contact Diagnoses Neurocognitive disorder Generalized anxiety disorder Procedures PROVIDER ORDERED FOLLOW UP OFFICE/OUTPATIENT NEW HIGH MDM 60 MINUTES Alexus Naik, [employer]ESSION[employer].PROMOTIONS REPRESENTATIVE [address] [place] [address] Phone: tel: fax: Referral ID Status Reason Start Date Expiration Date V isits Requested Visits Authorized [id number] Closed PCP Requested Referral 07/10/2024 07/10/2025 1 1 Reason Comments Insurance Authorization Care Teams (unrecognized sec tion and content) Software Client Architect Relationship Specialty Start Date End Date Elif Mckinley PA-C [address] [place], [place] [id number] PCP - General Family Practice 01/30/18 Software Client Architect Relationship Specialty Start Date End Date Elif Mckinley PA-C [address] [place], [place] [id number] PCP - General Family Practice 01/30/18 Software Client Architect Relationship Specialty Start Date End Date Elif Mckinley PA-C [address] [place], [place] [id number] PCP - General Family Practice 01/30/18 Software Client Architect Relationship Specialty Start Date End Date Elif Mckinley PA-C [address] [place] [address] PCP - General Family Practice 01/30/18 Software Client Architect Relationship Specialty Start Date End Date Elif Mckinley PA-C [address] [place] [address] PCP - General Family Practice 01/30/18 Software Client Architect Relationship Specialty Start Date End Date Elif Mckinley PA-C [address] [place] [address] PCP - General Family Practice 01/30/18 Software Client Architect Relationship Specialty Start Date End Date Elif Mckinley PA-C [address] [place] [address] PCP - General Family Practice 01/30/18 Software Client Architect Relationship Specialty Start Date End Date Elif Mckinley PA-C [address] [place] [address] PCP - General Family Medicine 01/30/18 Software Client Architect Relationship Specialty Start Date End Date Elif Mckinley PA-C [address] [place] [address] PCP - General Family Medicine 01/30/18 Software Client Architect Relationship Specialty Start Date End Date Elif Mckinley PA-C [address] [place] [address] PCP - General Family Medicine 01/30/18 Software Client Architect Relationship Specialty Start Date End Date Elif Mckinley PA-C [address] [place] [address] PCP - General Family Medicine 01/30/18 Software Client Architect Relationship Specialty Start Date End Date Elif Mckinley PA-C [address] [place] [address] PCP - General Family Medicine 01/30/18 Software Client Architect Relationship Specialty Start Date End Date Elif Mckinley PA-C [address] [place] [address] PCP - General Family Medicine 01/30/18 Software Client Architect Relationship Specialty Start Date End Date Elif Mckinley PA-C [address] [place] [address] PCP - General Family Medicine 01/30/18 Software Client Architect Relationship Specialty Start Date End Date Elif Mckinley PA-C [address] [place] [address] PCP - General Family Medicine 01/30/18 Software Client Architect Relationship Specialty Start Date End Date Elif Mckinley PA-C [address] [place] [address] PCP - General Family Medicine 01/30/18 Software Client Architect Relationship Specialty Start Date End Date Elif Mckinley PA-C [address] [place] [address] PCP - General Family Medicine 01/30/18 Software Client Architect Relationship Specialty Start Date End Date Elif Mckinley PA-C [address] [place] [address] PCP - General Family Medicine 01/30/18 Software Client Architect Relationship Specialty Start Date End Date Elif Mckinley PA-C [address] [place] [address] PCP - General Family Medicine 01/30/18 Software Client Architect Relationship Specialty Start Date End Date Elif Mckinley PA-C [address] [place] [address] PCP - General Family Medicine 01/30/18 Software Client Architect Relationship Specialty Start Date End Date Elif Mckinley PA-C [address] [place] [address] PCP - General Family Medicine 01/30/18 Software Client Architect Relationship Specialty Start Date End Date Elif Mckinley PA-C [address] [place] [address] PCP - General Family Medicine 01/30/18 Software Client Architect Relationship Specialty Start Date End Date Elif Mckinley PA-C [address] [place] [address] PCP - General Family Medicine 01/30/18 Software Client Architect Relationship Specialty Start Date End Date Elif Mckinley PA-C [address] [place] [address] PCP - General Family Medicine 01/30/18 Software Client Architect Relationship Specialty Start Date End Date Elif Mckinley PA-C [address] [place] [address] PCP - General Family Medicine 01/30/18 Software Client Architect Relationship Specialty Start Date End Date Elif Mckinley PA-C [address] [place] [address] PCP - General Family Medicine 01/30/18 Software Client Architect Relationship Specialty Start Date End Date Elif Mckinley PA-C [address] [place] [address] PCP - General Family Medicine 01/30/18 Software Client Architect Relationship Specialty Start Date End Date Elif Mckinley PA-C [address] [place] [address] PCP - General Family Medicine 01/30/18 Software Client Architect Relationship Specialty Start Date End Date Elif Mckinley PA-C [address] [place] [address] PCP - General Family Medicine 01/30/18 Software Client Architect Relationship Specialty Start Date End Date Elif Mckinley PA-C [address] [place] [address] PCP - General Family Medicine 01/30/18 Software Client Architect Relationship Specialty Start Date End Date Elif Mckinley PA-C [address] [place] [address] PCP - General Family Medicine 01/30/18 Software Client Architect Relationship Specialty Start Date End Date Elif Mckinley PA-C [address] [place] [address] PCP - General Family Medicine 01/30/18 Software Client Architect Relationship Specialty Start Date End Date Elif Mckinley PA-C [address] [place] [address] PCP - General Family Medicine 01/30/18 Software Client Architect Relationship Specialty Start Date End Date Elif Mckinley PA-C [address] [place] [address] PCP - General Family Medicine 01/30/18 Software Client Architect Relationship Specialty Start Date End Date Elif Mckinley PA-C [address] [place] [address] PCP - General Family Medicine 01/30/18 Software Client Architect Relationship Specialty Start Date End Date Elif Mckinley PA-C [address] [place] [address] PCP - General Family Medicine 01/30/18 Software Client Architect Relationship Specialty Start Date End Date Elif Mckinley PA-C [address] [place] [address] PCP - General Family Medicine 01/30/18 Software Client Architect Relationship Specialty Start Date End Date Elif Mckinley PA-C [address] [place] [address] PCP - General Family Medicine 01/30/18 Software Client Architect Relationship Specialty Start Date End Date Elif Mckinley PA-C [address] [place] [address] PCP - General Family Medicine 01/30/18 Software Client Architect Relationship Specialty Start Date End Date Elif Mckinley PA-C [address] [place] [address] PCP - General Family Medicine 01/30/18 Software Client Architect Relationship Specialty Start Date End Date Elif Mckinley PA-C [address] [place] [address] PCP - General Family Medicine 01/30/18 Software Client Architect Relationship Specialty Start Date End Date Elif Mckinley PA-C [address] [place] [address] PCP - General Family Medicine 01/30/18 Software Client Architect Relationship Specialty Start Date End Date Elif Mckinley PA-C [address] [place] [address] PCP - General Family Medicine 01/30/18 Software Client Architect Relationship Specialty Start Date End Date Elif Mckinley PA-C [address] [place] [address] PCP - General Family Medicine 01/30/18 Software Client Architect Relationship Specialty Start Date End Date Elif Mckinley PA-C [address] [place] [address] PCP - General Family Medicine 01/30/18 Software Client Architect Relationship Specialty Start Date End Date Elif Mckinley PA-C [address] [place] [address] PCP - General Family Medicine 01/30/18 Software Client Architect Relationship Specialty Start Date End Date Elif Mckinley PA-C [address] [place] [address] PCP - General Family Medicine 01/30/18 Software Client Architect Relationship Specialty Start Date End Date Elif Mckinley PA-C [address] [place] [address] PCP - General Family Medicine 01/30/18 Software Client Architect Relationship Specialty Start Date End Date Elif Mckinley PA-C [address] [place] [address] PCP - General Family Medicine 01/30/18 Software Client Architect Relationship Specialty Start Date End Date Elif Mckinley PA-C [address] [place] [address] PCP - General Family Medicine 01/30/18 Software Client Architect Relationship Specialty Start Date End Date Elif Mckinley PA-C [address] [place] [address] PCP - General Family Medicine 01/30/18 Software Client Architect Relationship Specialty Start Date End Date Elif Mckinley PA-C [address] [place] [address] PCP - General Family Medicine 01/30/18 Software Client Architect Relationship Specialty Start Date End Date Elif Mckinley PA-C [address] [place] [address] PCP - General Family Medicine 01/30/18 Software Client Architect Relationship Specialty Start Date End Date Elif Mckinley PA-C [address] [place] [address] PCP - General Family Medicine 01/30/18 Software Client Architect Relationship Specialty Start Date End Date Elif Mckinley PA-C [address] [place] [address] PCP - General Family Medicine 01/30/18 Software Client Architect Relationship Specialty Start Date End Date Elif Mckinley PA-C [address] [place] [address] PCP - General Family Medicine 01/30/18 Software Client Architect Relationship Specialty Start Date End Date Elif Mckinley PA-C [address] [place] [address] PCP - General Family Medicine 01/30/18 Software Client Architect Relationship Specialty Start Date End Date Elif Mckinley PA-C [address] [place] [address] PCP - General Family Medicine 01/30/18 Software Client Architect Relationship Specialty Start Date End Date Elif Mckinley PA-C [address] [place] [address] PCP - General Family Medicine 01/30/18 Software Client Architect Relationship Specialty Start Date End Date Elif Mckinley PA-C [address] [place] [address] PCP - General Family Medicine 01/30/18 Software Client Architect Relationship Specialty Start Date End Date Elif Mckinley PA-C [address] [place] [address] PCP - General Family Medicine 01/30/18 Software Client Architect Relationship Specialty Start Date End Date Elif Mckinley PA-C [address] [place] [address] PCP - General Family Medicine 01/30/18 Software Client Architect Relationship Specialty Start Date End Date Elif Mckinley PA-C [address] [place] [address] PCP - General Family Medicine 01/30/18 Software Client Architect Relationship Specialty Start Date End Date Elif Mckinley PA-C [address] [place] [address] PCP - General Family Medicine 01/30/18 Software Client Architect Relationship Specialty Start Date End Date Elif Mckinley PA-C [address] [place] [address] PCP - General Family Medicine 01/30/18 Software Client Architect Relationship Specialty Start Date End Date Elif Mckinley PA-C [address] [place] [address] PCP - General Family Medicine 01/30/18 Software Client Architect Relationship Specialty Start Date End Date Elif Mckinley PA-C [address] [place] [address] PCP - General Family Medicine 01/30/18 Software Client Architect Relationship Specialty Start Date End Date Elif Mckinley PA-C [address] [place] [address] PCP - General Family Medicine 01/30/18 Software Client Architect Relationship Specialty Start Date End Date Elif Mckinley PA-C [address] [place] [address] PCP - General Family Medicine 01/30/18 Software Client Architect Relationship Specialty Start Date End Date Elif Mckinley PA-C [address] [place] [address] PCP - General Family Medicine 01/30/18 Software Client Architect Relationship Specialty Start Date End Date Elif Mckinley PA-C [address] [place] [address] PCP - General Family Medicine 01/30/18 Software Client Architect Relationship Specialty Start Date End Date Elif Mckinley PA-C [address] [place] [address] PCP - General Family Medicine 01/30/18 Software Client Architect Relationship Specialty Start Date End Date Elif Mckinley PA-C [address] [place] [address] PCP - General Family Medicine 01/30/18 Software Client Architect Relationship Specialty Start Date End Date Erum Mckinley PA-C PCP - General Family Medicine 01/30/18 Software Client Architect Relationship Specialty Start Date End Date Ermu Mckinley PA-C PCP - General Family Medicine 01/30/18 Software Client Architect Relationship Specialty Start Date End Date Erum Mckinley PA-C PCP - General Family Medicine 01/30/18 Software Client Architect Relationship Specialty Start Date End Date Erum Mckinley PA-C PCP - General Family Medicine 01/30/18 Marah Valdovinos, SECURITY PROFESSIONALS.PROMOTIONS REPRESENTATIVE [address] [place] [address] [employer]ing Goods Sales Manager Family Medicine 08/03/24 Leticia Harding, SECURITY PROFESSIONALS.PROMOTIONS REPRESENTATIVE [address] [place] [address] [employer]ing Goods Sales Manager Family Medicine 08/03/24 Software Client Architect Relationship Specialty Start Date End Date Erum Mckinley PA-C PCP - General Family Medicine 01/30/18 Marah Valdovinos, SECURITY PROFESSIONALS.PROMOTIONS REPRESENTATIVE [address] [facility] [place] [place] [address] [employer] Goods Sales Manager Family Medicine 08/03/24 Leticia Harding, SECURITY PROFESSIONALS.PROMOTIONS REPRESENTATIVE [address] [facility] [place] [address] [employer]s Sales Manager Family Medicine 08/03/24 Software Client Architect Relationship Specialty Start Date End Date Leticia Harding, SECURITY PROFESSIONALS.PROMOTIONS REPRESENTATIVE [address] [place] [address] PCP - General Family Medicine 08/30/24 Marah Valdovinos, SECURITY PROFESSIONALS.PROMOTIONS REPRESENTATIVE [address] [place] [address] [employer]ing Goods Sales Manager Family Medicine 08/03/24 Leticia Harding, SECURITY PROFESSIONALS.PROMOTIONS REPRESENTATIVE [address] [facility] [place] [address] Sporting Goods Sales Manager Family Medicine 08/03/24 Software Client Architect Relationship Specialty Start Date End Date Leticia Harding APRN.PROMOTIONS REPRESENTATIVE [address] [place] [address] PCP - General Family Medicine 08/30/24 Marah Valdovinos APRN.PROMOTIONS REPRESENTATIVE [address] [facility] [place] [address] Sporting Goods Sales Manager Family Medicine 08/03/24 Leticia Harding SECURITY PROFESSIONALS.PROMOTIONS REPRESENTATIVE [address] [place] [address] [employer]ing Good[employer] Sales Manager Family Medicine 08/03/24 Software Client Architect Relationship Specialty Start Date End Date Erum Mckinley PA-C PCP - General Family Medicine 01/30/18 08/29/24 Marah Valdovinos APRN.PROMOTIONS REPRESENTATIVE [address] [facility] [place] [address] [employer]ing Goods Sales Manager Family Medicine 08/03/24 Leticia Harding SECURITY PROFESSIONALS.PROMOTIONS REPRESENTATIVE [address] [place] [address] [employer]ing Goods Sales Manager Family Medicine 08/03/24 Software Client Architect Relationship Specialty Start Date End Date Leticia Harding SECURITY PROFESSIONALS.PROMOTIONS REPRESENTATIVE [address] [place] [address] PCP - General Family Medicine 08/30/24 Marah Valdovinos SECURITY PROFESSIONALS.PROMOTIONS REPRESENTATIVE [address] [facility] [place] [address] Sporting Goods Sales Manager Family Medicine 08/03/24 Leticia Harding SECURITY PROFESSIONALS.PROMOTIONS REPRESENTATIVE [address] [place] [address] [employer]ing Goods Sales Manager Family Medicine 08/03/24 Software Client Architect Relationship Specialty Start Date End Date Leticia Harding SECURITY PROFESSIONALS.PROMOTIONS REPRESENTATIVE [address] [place] [address] PCP - General Family Medicine 08/30/24 Marah Valdovinos, SECURITY PROFESSIONALS.PROMOTIONS REPRESENTATIVE [address] [facility] [place] [address] Sporting Goods Sales Manager Family Medicine 08/03/24 Leticia Harding, SECURITY PROFESSIONALS.PROMOTIONS REPRESENTATIVE [address] [place] [address] [employer] [facility] 08/03/24 Software Client Architect Relationship Specialty Start Date End Date Leticia Harding, SECURITY PROFESSIONALS.PROMOTIONS REPRESENTATIVE [address] [place] [address] PCP - General Family Medicine 08/30/24 Marah Valdovinos, SECURITY PROFESSIONALS.PROMOTIONS REPRESENTATIVE [address] [place] [address] Sporting Goods Sales Manager Family Medicine 08/03/24 Leticia Harding, SECURITY PROFESSIONALS.PROMOTIONS REPRESENTATIVE [address] [place] [address] Sporting Goods Sales Manager Family Medicine 08/03/24 Software Client Architect Relationship Specialty Start Date End Date Leticia aHrding, SECURITY PROFESSIONALS.PROMOTIONS REPRESENTATIVE [address] [place] [address] PCP - General Family Medicine 08/30/24 Marah Valdovinos, SECURITY PROFESSIONALS.PROMOTIONS REPRESENTATIVE [address] [facility] [place] [address] [employer]ing Goods Sales Manager Family Medicine 08/03/24 Leticia Harding, SECURITY PROFESSIONALS.PROMOTIONS REPRESENTATIVE [address] [place] [address] [facility] 08/03/24 Software Client Architect Relationship Specialty Start Date End Date Leticia Harding, SECURITY PROFESSIONALS.PROMOTIONS REPRESENTATIVE [address] [place] [address] PCP - General Family Medicine 08/30/24 Marah Valdovinos, SECURITY PROFESSIONALS.PROMOTIONS REPRESENTATIVE [address] [place] [address] [facility] 08/03/24 Leticia Harding, SECURITY PROFESSIONALS.PROMOTIONS REPRESENTATIVE [address] [place] [address] [facility] 08/03/24 Software Client Architect Relationship Specialty Start Date End Date Leticia Harding, SECURITY PROFESSIONALS.PROMOTIONS REPRESENTATIVE [address] [place] [address] PCP - General Family Medicine 08/30/24 Marah Valdovinos, SECURITY PROFESSIONALS.PROMOTIONS REPRESENTATIVE [address] [place] [address] [facility] Medicine 08/03/24 Leticia Harding, SECURITY PROFESSIONALS.PROMOTIONS REPRESENTATIVE [address] [place] [address] [facility] Medicine 08/03/24 Software Client Architect Relationship Specialty Start Date End Date Leticia Harding, SECURITY PROFESSIONALS.PROMOTIONS REPRESENTATIVE [address] [place] [address] PCP - [facility] Medicine 08/30/24 Marah Valdovinos, SECURITY PROFESSIONALS.PROMOTIONS REPRESENTATIVE [address] [place], [place] [address] [facility] 08/03/24 Leticia Harding SECURITY PROFESSIONALS.PROMOTIONS REPRESENTATIVE [address] [place], [place] [address] [facility] 08/03/24 Software Client Architect Relationship Specialty Start Date End Date Leticia Harding SECURITY PROFESSIONALS.PROMOTIONS REPRESENTATIVE [address] [place], [place] [address] PCP - [facility] 08/30/24 Marah Valdovinos APRN.PROMOTIONS REPRESENTATIVE [address] [place], [place] [address] [facility] 08/03/24 Leticia Harding SECURITY PROFESSIONALS.PROMOTIONS REPRESENTATIVE [address] [place], [place] [address] [facility] [facility], [facility] 08/03/24 Software Client Architect Relationship Specialty Start Date End Date Leticia Harding [employer] REPRESENTATIVE [address] [place], [place] [id number] PCP - [facility] 08/30/24 Team Status: Active Member Role Status Dates SHANNON Denis Primary Care Provider Active Team Status: Inactive Member Role Status Dates Dr. Jose Juan Christine MD Emergency Provider Active S tart: January 16, 2025 End: January 16, 2025 SHANNON Denis Primary Care Provider Active Start: January 16, 2025 End: January 16, 2025 Software Client Architect Relationship Specialty Start Date End Date Leticia Harding [employer] REPRESENTATIVE [address] [place], [place] [id number] PCP - General Family Medicine 08/30/24 Software Client Architect Relationship Specialty Start Date End Date Leticia Harding, [employer] REPRESENTATIVE [address] [place] [address] PCP - General Family Medicine 08/30/24 Software Client Architect Relationship Specialty Start Date End Date Leticia Harding, [employer] REPRESENTATIVE [address] [place] [address] PCP - General Family Medicine 08/30/24 Software Client Architect Relationship Specialty Start Date End Date Leticia Harding, [employer] REPRESENTATIVE [address] [place] [address] PCP - General Family Medicine 08/30/24 Software Client Architect Relationship Specialty Start Date End Date Leticia Harding, [employer] REPRESENTATIVE [address] [place] [address] PCP - General Family Medicine 08/30/24 (unrecognized sect ion and content) No Status Records FoundNo Status Records FoundNo Status Records FoundNo Status Records FoundNo Status Records Found INFORMATION SOURCE (unrecogn ized section and content) DATE CREATED AUTHOR 01/22/2024 [facility] DATE CREATED AUTHOR AUTHOR'S ORGANIZ ATION 01/26/2025 [facility] DATE CREATED AUTHOR AUTHOR'S ORGANIZ ATION 01/26/2025 [facility] DATE CREATED AUTHOR AUTHOR'S ORGANIZ ATION 01/27/2025 [facility] DATE CREATED AUTHOR AUTHOR'S ORGANIZ ATION 01/31/2025 [facility] Goals (unrecognized section and content) Goals may be documented in a n alternate section FOR RECORDS PERTAINING TO PATIENTS WHO ARE OR HAVE BEEN ENROLLED IN A CHEMICAL DEPENDENCY/SUBSTANCEABUSE PROGRAM, SOME INFORMATION MAY BE OMITTED. This clinical summary was aggregated from multiple sources. Caution should be exercised in using it in the provision of clinical care. This summary normalizes information from multiple sources, and as a consequence, information in this document may materially change the coding, format and clinical context of patient data. In addition, data may be omitted in some cases. CLINICAL DECISIONS SHOULD BE BASED ON THE PRIMARY CLINICAL RECORDS. [employer] [facility]. provides no warranty or guarantee of the accuracy or completeness of information in this document.
[2025-02-01 21:43] VITALS: BP 165/100; PULSE 84; RESP 18; O2SAT 96
[2025-02-01 22:06] VITALS: BP 143/86; PULSE 81; RESP 18; TEMP 37.3; O2SAT 95
[2025-02-01 22:36] VITALS: BP 144/62; PULSE 98; RESP 18; TEMP 36.8; O2SAT 95
[2025-02-01 22:40] VITALS: BMI 23.4
[2025-02-01] MEDS: 0.9% Normal Saline (1000mL) 1,000 ML 100 ML IV (23:03)
[2025-02-01] MEDS: 0.9% Saline Lock 10 ML Syringe IV (23:15)
[2025-02-01] MEDS: Menthol/Lanolin/Calamine/Znox 113 GM Tube 1 APPLIC TOPICAL (23:15)
[2025-02-01] MEDS: Haloperidol Lactate 5 MG/ML Vial SC (23:20)
--- NOTE | 2025-02-02 08:25 | CASEMGMT ---
Addendum entered by Dori Segal 02/02/25 11:36: Social Work SW spoke w/ in room, hospice had not called her. SW called hospice back, the referral had not been processed yet. SW then did receive a call at 11:30am that a nurse from hospice will be here about 12:30pm. SW notified bedside RN who will let know, as SW is off the floor at the moment. MARGARITO Crawford Original Note: Social Work SW called [facility], faxed referral, asked them to call directly to set up an appt and let SW know time of appt. MARGARITO Crawford
--- NOTE | 2025-02-02 08:39 | PN.HOSP_ITS ---
Reason for Visit Reason for Visit: Diagnoses Encephalopathy, unspecified (02/01/25) Subjective Subjective Recently hospitalized at [facility] for SDH. Went to rehab, but did poorly with agitation. asking for hospice. Objective Data Objective Data Vital Signs: Vital Signs Temp Pulse Resp BP Pulse Ox O2 Del Method 36.8 C 98 18 144/62 H 95 Room Air 02/01/25 22:36 02/01/25 22:36 02/01/25 22:36 02/01/25 22:36 02/01/25 22:36 02/02/25 08:15 Oxygen Delivery Method Room Air Weight: 74.2 kg Body Mass Index (BMI) 23.4 Intake & Output: Intake and Output for Last 24 Hours 01/31/25 02/01/25 02/02/25 23:59 23:59 23:59 Intake Total 0 / 0 Output Total 300 / 300 Balance 0 / 0 -300 / -300 Lab / Micro Data 02/01/25 18:15 02/01/25 18:15 Labs: Laboratory Results - last 24 hr 02/01/25 18:15: WBC 8.5, RBC 4.61, Hgb 14.2, Hct 40.6, MCV 88.1, MCH 30.8, MCHC 35.0, RDW Std Deviation 40.6, RDW Coeff of Agueda 12.6, Plt Count 292, MPV 9.3, Immature Gran % (Auto) 0.500, Neut % (Auto) 74.8 H, Lymph % (Auto) 16.9 L, [place] % (Auto) 6.6, Eos % (Auto) 0.8, Baso % (Auto) 0.4, Absolute Neuts (auto) 6.4, Absolute Lymphs (auto) 1.44, Nucleated RBC % 0, PT 13.6, INR 1.0, APTT 30.5, Sodium 133, Potassium 4.0, Chloride 98, Carbon Dioxide 21.1, Anion Gap 14, BUN 17, Creatinine 0.85, Estim Creat Clear Calc 77.53, Est GFR (MDRD) Non-Af 91, B UN/Creatinine Ratio 20.6 H, Glucose 115 H, Calcium 9.5 02/01/25 18:34: Urine Color Yellow, Urine Clarity Clear, Urine pH 5.0, Ur Specific [place] 1.025, Urine Protein 15 H, Urine Glucose (UA) Normal, Urine Ketones Negative, Urine Occult Blood 10 H, Urine Nitrite Negative, Urine Bilirubin Negative, Urine Urobilinogen Normal, Ur Leukocyte Esterase Negative, Urine RBC 0 SEEN, Urine WBC 0-5 SEEN, Ur Squamous Epith Cells 0 SEEN, Urine Bacteria 0 SEEN, Hyaline Casts 0-5 SEEN, Urine Mucus 0 SEEN Radiography Diagnostic Testing: Radiology Impression Brain CT 02/01/25 18:45 IMPRESSION: 1. Subtle hyperdensity along the right frontal convexity could be artifact from the skull. Subtle subdural hematoma can not be excluded. Further evaluation MRI is recommended. 2. Generalized brain atrophy. 3. Small vessel ischemic/degenerative changes. 4. No acute intracranial hemorrhage, midline shift or mass effect. If symptoms persist, further evaluation with MRI is recommended. Reading Location: [id number] Cervical Spine CT 02/01/25 18:45 IMPRESSION: No acute osseous abnormality. Reading Location: [facility] Chest X-Ray 02/01/25 18:55 IMPRESSION: No acute cardiopulmonary abnormality. Reading Location: [id number] Physical Exam Const Constitutional Narrative: sleeping--did not awake. afebrile. Assessment & Plan Assessment/Plan (1) Encephalopathy acute: PLAN: pt already with SDH, encephalopathy acutely worse. Family electing for comfort measures. Plan is for family to meet with hospice and to have hospice services at home. Charges/Coding Visit Charges Inpatient E&M: 63599 Subs Hosp L1
[2025-02-02 09:17] VITALS: BP 129/72; PULSE 80; RESP 16; TEMP 37.5; O2SAT 94
[2025-02-02] MEDS: Menthol/Lanolin/Calamine/Znox 113 GM Tube 1 APPLIC TOPICAL ×2 (15:06→18:14)
--- NOTE | 2025-02-02 15:20 | DS.PCM_ITS ---
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 EMERGENT Consult: No MD Notified: Yes Date Notified: 02/01/25 Time Notified: 21:52 Method of Notification: Answering Service Reason For Visit: AMS, RECENT FALLS W/ SDH Diagnosis Discharge Diagnosis (1) Encephalopathy acute: Status: Acute Code(s): G93.40 - Encephalopathy, unspecified Plan: pt already with SDH, encephalopathy acutely worse. Family electing for comfort measures. Plan is for family to meet with hospice and to have hospice services at home. Medications at Discharge Home Medications albuterol sulfate 90 mcg/actuation aerosol inhaler (Ventolin HFA) 2 puff inhalation Q4H PRN PRN Wheezing ##1 01/28/24 acetaminophen 325 mg capsule 975 mg PO BID fever or pain 02/01/25 acetaminophen 325 mg capsule 975 mg PO QHS 02/01/25 albuterol sulfate 2.5 mg/3 mL (0.083 %) solution for nebulization 2.5 mg inhalation Q4H PRN shortness of breath or wheezing 02/01/25 atorvastatin 40 mg tablet 40 mg PO DAILY 02/01/25 budesonide 0.5 mg/2 mL suspension for nebulization 0.5 mg inhalation BID 02/01/25 Hospital Course Operations None Procedures None Summary of Care Provided Hospital Course: Patient admitted for increased agitation. Patient was at [facility] for subdural hematoma. While he was there he did have a sitter. Went to [facility] for rehab but did not thrive there and was sent here. Requested hospice. Patient was seen by hospice today and discussion with the patient's plan is for the patient to go home with hospice. Hospice services can arrange for DME equipment to be delivered today and plan is to discharge patient home with hospice today. Hospice services will take care of the medications at home. Weight / BMI Weight Weight: 74.2 kg Body Mass Index (BMI) 23.4 ABG / Lab / Microbiology Data 02/01/25 18:15 02/01/25 18:15 Laboratory: Laboratory Results - last 24 hr 02/01/25 18:15: WBC 8.5, RBC 4.61, Hgb 14.2, Hct 40.6, MCV 88.1, MCH 30.8, MCHC 35.0, RDW Std Deviation 40.6, RDW Coeff of Agueda 12.6, Plt Count 292, MPV 9.3, Immature Gran % (Auto) 0.500, Neut % (Auto) 74.8 H, Lymph % (Auto) 16.9 L, [place] % (Auto) 6.6, Eos % (Auto) 0.8, Baso % (Auto) 0.4, Absolute Neuts (auto) 6.4, Absolute Lymphs (auto) 1.44, Nucleated RBC % 0, PT 13.6, INR 1.0, APTT 30.5, Sodium 133, Potassium 4.0, Chloride 98, Carbon Dioxide 21.1, Anion Gap 14, BUN 17, Creatinine 0.85, Estim Creat Clear Calc 77.53, Est GFR (MDRD) Non-Af 91, B UN/Creatinine Ratio 20.6 H, Glucose 115 H, Calcium 9.5 02/01/25 18:34: Urine Color Yellow, Urine Clarity Clear, Urine pH 5.0, Ur Specific [place] 1.025, Urine Protein 15 H, Urine Glucose (UA) Normal, Urine Ketones Negative, Urine Occult Blood 10 H, Urine Nitrite Negative, Urine Bilirubin Negative, Urine Urobilinogen Normal, Ur Leukocyte Esterase Negative, Urine RBC 0 SEEN, Urine WBC 0-5 SEEN, Ur Squamous Epith Cells 0 SEEN, Urine Bacteria 0 SEEN, Hyaline Casts 0-5 SEEN, Urine Mucus 0 SEEN Radiography Diagnostic Testing: Radiology Impression Brain CT 02/01/25 18:45 IMPRESSION: 1. Subtle hyperdensity along the right frontal convexity could be artifact from the skull. Subtle subdural hematoma can not be excluded. Further evaluation MRI is recommended. 2. Generalized brain atrophy. 3. Small vessel ischemic/degenerative changes. 4. No acute intracranial hemorrhage, midline shift or mass effect. If symptoms persist, further evaluation with MRI is recommended. Reading Location: [id number] Cervical Spine CT 02/01/25 18:45 IMPRESSION: No acute osseous abnormality. Reading Location: [facility] Chest X-Ray 02/01/25 18:55 IMPRESSION: No acute cardiopulmonary abnormality. Reading Location: [id number] Instructions Discharge Diet: No restrictions DC O2, CPAP, BIPAP Needs Home O2 Discharge instructions: No Meaningful Use Info Meaningful Use Meaningful Use Diagnoses (Choose all that apply): None applicable Ischemic Stroke Statin Dosing Therapy Reference: STATIN DOSE THERAPY REFERENCE: * Patients > 75 years receive moderate or high dose statin therapy. * Patients 75 years or YOUNGER should receive HIGH intensity statin dose unless contraindicated. You will be required to document reason for non-treatment if statin daily dose does not meet guidelines. HIGH DOSE STATIN THERAPY DAILY Atorvastatin > than or = to 40 mg Rosuvastatin > than or = to 20 mg Amlodipine + Atorvastatin > than or = to 2.5/40 mg Ezetimibe + Simvastatin 10/80 mg Simvastatin 80mg Discharge Plan Admission Admit Date/Time: 02/01/25 21:14 Primary Reason for Your Visit: Confusion Attending Provider: Earnest Brown Primary Care Provider: Leticia Harding Consulting Providers: Mimi Maldonado; Elmer Watson; Annie Davis; Aishwarya Tomlinson; Saige Gonzales; Leslye Miller NP; Gilda Gutierrez Discharge Orders/Prescriptions Prescriptions: Continued albuterol sulfate [Ventolin HFA] 90 mcg/actuation HFA aerosol inhaler 2 puff inhalation Q4H PRN PRN (Reason: Wheezing) Qty: 1 0RF acetaminophen 325 mg capsule 975 mg PO BID acetaminophen 325 mg capsule 975 mg PO QHS albuterol sulfate 2.5 mg /3 mL (0.083 %) solution for nebulization 2.5 mg inhalation Q4H PRN (Reason: shortness of breath or wheezing) atorvastatin 40 mg tablet 40 mg PO DAILY budesonide 0.5 mg/2 mL suspension for nebulization 0.5 mg inhalation BID Discontinued donepezil 5 mg tablet 5 mg PO DAILY buspirone 15 mg tablet 15 mg PO 0800,1300 heparin (porcine) 5,000 unit/mL (1 mL) cartridge 5,000 unit subcut QHS levetiracetam [Keppra] 500 mg tablet 500 mg PO BID olanzapine 5 mg tablet 5 mg PO QHS Senna Plus 8.6-50 mg capsule 1 tab-cap PO DAILY tamsulosin 0.4 mg capsule 0.4 mg PO QHS Referrals / Follow Up: Leticia Harding CNS [Primary Care Provider] - Disposition Disposition (needs filled in before D/C Order can be placed): Hospice in Home Charges/Coding Visit Charges Inpatient E&M: 90307 [facility]
--- NOTE | 2025-02-02 15:36 | CASEMGMT ---
Social Work Pt's met w/hospice, plan will be for pt to go home today w/hospice. SW called [facility] to let them know. MARGARITO Crawford
[2025-02-02] MEDS: Haloperidol Lactate 5 MG/ML Vial SC (18:13)
== END 2025-02-02 18:33 | disposition hospice, home (50) ==
LOC: ED 18:44 → MS3 21:25
PROVIDERS: Admitting Provider Family Medicine; Emergency Provider Emergency Medicine; PCP Clinical Nurse Specialist Adult Health
DX: G93.40 Encephalopathy, unspecified (principal); F02.80 Dementia in other diseases classified elsewhere, unspecified severity, without behavioral disturbance, psychotic disturbance, mood disturbance, and anxiety; I62.00 Nontraumatic subdural hemorrhage, unspecified; Z87.891 Personal history of nicotine dependence; Z51.5 Encounter for palliative care; J45.909 Unspecified asthma, uncomplicated; Z79.899 Other long term (current) drug therapy; N40.1 Benign prostatic hyperplasia with lower urinary tract symptoms; N13.8 Other obstructive and reflux uropathy
CPT/HCPCS: 70450; 71045; 72125; 80048; 81001; 85025; 85610; 85730; 96360; 96361; 96372; 99221; 99285; P9612; A4216; G0378